=== PATIENT | female | born 1985 | race Caucasian/White ===

== ENCOUNTER 2022-05-10 16:10 | Emergency (ER) | payer OTHER, SELFPAY ==
[2022-05-10 16:29] VITALS: BP 128/88; PULSE 76; RESP 16; TEMP 36.2; O2SAT 100
--- NOTE | 2022-05-10 16:33 | ED.URI ---
HPI - URI/Sore Throat General Chief Complaint: Upper Respiratory Infection Stated Complaint: sore throat congestion Time Seen by Provider: 05/10/22 16:33 History of Present Illness HPI Narrative: Patient brought in for evaluation of sore throat cough fever body aches and joint pain. Patient states her symptoms started yesterday. No short of breath no chest pain. Related Data Home Medications Medication Instructions Recorded Confirmed alprazolam 0.25 mg tablet mg 05/10/22 buspirone 10 mg tablet mg 05/10/22 Allergies Allergy/AdvReac Type Severity Reaction Status Date / Time No Known Allergies Allergy Verified 05/10/22 16:28 Review of Systems Review of Systems: CONSTITUTIONAL: Denies chills, or sweats. Reports fever and generalized body aches EYES: Denies visual changes, redness, or discharge. ENT: Denies otalgia. Reports nasal congestion runny nose and sore throat CARDIOVASCULAR: Denies chest pain, palpitations, or edema. RESPIRATORY: Denies dyspnea. Reports occasional cough GASTROINTESTINAL: Denies abdominal pain, nausea, vomiting, or diarrhea. GENITOURINARY: Denies dysuria or hematuria. SKIN: Denies rash or itching. MUSCULOSKELETAL: Denies back pain, joint pain, or myalgia. Reports generalized body aches NEUROLOGIC: Denies headache, numbness, or weakness. PSYCHIATRIC: Denies anxiety or depression. PMFSH Comments At time of signature, agree with nursing past medical, surgical, social and family history. There is no relevant family history pertinent to the presenting complaint Exam Narrative: The patient is a well-developed, well-nourished in no acute distress. SKIN: Skin is warm and dry without erythema, swelling or exudate. There is good turgor. No tenting. HEAD: Atraumatic. Normocephalic. No temporal or scalp tenderness. EYES: Moist and bright. Sclera and conjunctivae normal. No discharge. PERRLA. Extraocular motions intact. Gross visual acuity intact. EARS: Pinna is normal shape and contour. Clear external auditory canals. TM pearly nelson with good cone of light, no erythema or suppuration. Bilateral cerumen noted no gross hearing deficit. NOSE: pink, moist mucosa with good air movement. Clear rhinorrhea without nasal flaring. Septum midline. Mouth: moist mucous membranes. THROAT; mild erythema noted to posterior oropharynx with moderate postnasal drainage. Without exudate or ulceration.. Uvula midline. Normal movement of soft palate. NECK: Supple and nontender with full range of motion without discomfort. No meningeal signs. LUNGS: Equal and bilateral breath sounds without wheezes, rales or rhonchi. CHEST: The chest wall is without retractions or use of accessory muscles. HEART: Has a regular rate and rhythm without murmur, gallops, click or rub. ABDOMEN: Soft, nontender with positive active bowel sounds. No rebound tenderness. EXTREMITIES: Without cyanosis, clubbing or edema. Equal 2+ distal pulses and 2 second capillary refill noted. NEUROLOGIC: alert, active, . The patient moves all extremities with normal muscle strength. Normal muscle tone is noted. Normal coordination is noted. NO focal neurological findings noted. Course Course Level of Care: Express Care Visit Vital Signs Vital signs: Vital Signs Temperature 36.2 C L 05/10/22 16:29 Pulse Rate 76 05/10/22 16:29 Respiratory Rate 16 05/10/22 16:29 Blood Pressure 128/88 05/10/22 16:29 Pulse Oximetry 100 05/10/22 16:29 Oxygen Delivery Room Air 05/10/22 16:29 Temperature 36.2 C L 05/10/22 16:29 Pulse Rate 76 05/10/22 16:29 Respiratory Rate 16 05/10/22 16:29 Blood Pressure 128/88 05/10/22 16:29 Pulse Oximetry 100 05/10/22 16:29 Oxygen Delivery Room Air 05/10/22 16:29 Discussed with mother might be a false negative due to the symptoms just starting the patient would like an influenza a test. MDM - URI/Sore Throat Lab Data Labs: Influenza A Screen Negative
== END 2022-05-10 17:16 | disposition home or self-care (01) ==
PROVIDERS: Emergency Provider Nurse Practitioner Family; PCP Physician Assistant
DX: B34.9 Viral infection, unspecified (principal)
CPT/HCPCS: 87804; 99203; G0463

== ENCOUNTER 2022-05-24 17:50 | Emergency (ER) | payer OTHER, SELFPAY ==
[2022-05-24 17:54] VITALS: BP 140/80; PULSE 75; RESP 20; TEMP 36.7; O2SAT 100
--- NOTE | 2022-05-24 18:13 | ED.URI ---
HPI - URI/Sore Throat General Chief Complaint: Upper Respiratory Infection Stated Complaint: sob caused by cough Time Seen by Provider: 05/24/22 18:10 Source: patient, RN notes reviewed and old records reviewed Mode of arrival: ambulatory Limitations: no limitations History of Present Illness HPI Narrative: 36-year-old female presents to [facility] for past 2 week duration of chest congestion, shortness of breath, reporting green phlegm with no known recent fevers. Patient states she is feeling a little bit better but continues with cough, ear pain, some sore throat discomfort.Patient has been taking Tylenol and Mucinex for her symptoms.Patient reports that she has been short of breath for the past 2 days with some achiness in chest and ribs.Patient reports no COVID vaccinations or any flu shot. Patient reports that she has been taking Mucinex and Tylenol. MD elicited complaint: cough, sore throat and other (ear pain, achiness) Pain scale (0-10): 2 Treatments prior to arrival: acetaminophen and other (Mucinex) Related Data Home Medications Medication Instructions Recorded Confirmed alprazolam 0.25 mg tablet 0.25 mg PO BID PRN Anxiety 05/10/22 05/24/22 buspirone 10 mg tablet 10 mg PO DAILY 05/10/22 05/24/22 etonogestrel 0.12 mg-ethinyl 1 vag ring vaginal .[id number] 05/24/22 05/24/22 estradiol 0.015 mg/24 hr vaginal ring (EluRyng) Allergies Allergy/AdvReac Type Severity Reaction Status Date / Time No Known Allergies Allergy Verified 05/24/22 18:20 Review of Systems Review of Systems: CONSTITUTIONAL: Denies malaise, chills, sweats, or fever. EYES: Denies visual changes, redness, or discharge. ENT: Reports rhinorrhea, congestion, sinus pain, otalgia and sore throat. CARDIOVASCULAR: Denies chest pain, palpitations, or edema. RESPIRATORY: Reports cough.? Denies dyspnea. GASTROINTESTINAL: Denies abdominal pain, nausea, vomiting, diarrhea SKIN: Denies rash or itching. MUSCULOSKELETAL: Reports myalgia. NEUROLOGIC: Denies headache. All systems reviewed & are unremarkable except as noted in HPI and below PMFSH Past Medical History Medical History (Updated 06/05/22 @ 08:00 by Irena Darnell NP) Anxiety Surgical History Surgical History (Updated 06/05/22 @ 08:04 by Irena Darnell NP) History of ear surgery perforation of left ear Social History Social History (Updated 06/05/22 @ 08:03 by Irena Darnell NP) Smoking status: Never smoker Alcohol intake: unknown Substance use type: does not use Gender identity (if verbalized by the patient): Female Comments At time of signature, agree with nursing past medical, surgical, social and family history. There is no relevant family history pertinent to the presenting complaint Exam Narrative: GENERAL: Well-appearing, well-nourished, and in no acute distress. HEAD: Normocephalic EYES: PERRLA, conjunctivae clear ENT: Nares clear, turbinates edematous and erythematous, clear discharge. Mucous membranes moist. TM pearly tierney with dull light reflex bilaterally; no tragal tenderness. Oropharynx erythematous without lesions. Tonsils red enlarged and without exudate,painful swallowing, no drooling, no hoarseness, no trismus, uvula midline. NECK: Supple. lymphadenopathy CHEST: Clear to auscultation, breath sounds equal. No wheezing, rhonchi, rales, or stridor. No respiratory distress, speaks in full sentences. cough with congestion SAO2 100% on room air. HEART: Regular rate and rhythm. No murmur heard. SKIN: Warm, dry, no rash. NEURO: Alert and oriented x3. PSYCH: Normal mood and affect Course Course Emergency Course: Patient is aware of diagnosis, understands and agrees to treatment plan.? Anticipatory guidance given.? Patient agrees to follow-up as directed and is aware of reasons to seek care at the emergency department. Portions of this record may have been created with voice recognition software Level of Care: E
== END 2022-05-24 18:25 | disposition home or self-care (01) ==
PROVIDERS: Emergency Provider Registered Nurse; PCP Physician Assistant
DX: J02.0 Streptococcal pharyngitis (principal); F41.9 Anxiety disorder, unspecified
CPT/HCPCS: 99213; G0463

== ENCOUNTER 2022-11-13 08:48 | Outpatient (CLI) | payer OTHER, SELFPAY ==
--- NOTE | 2022-11-13 09:07 | ECG_ITS ---
Measurements Intervals [place] Rate: 65 P: 52 TN: 145 QRS: -3 QRSD: 89 T: -1 QT: 390 QTc: 408 Interpretive Statements SINUS RHYTHM POSSIBLE RIGHT VENTRICULAR CONDUCTION DELAY [RSR (QR) IN V1/V2] NONSPECIFIC T-WAVE ABNORMALITY NO PREVIOUS ECG AVAILABLE FOR COMPARISON Electronically Signed On 11-13-2022 14:03:40 CDT by Liya Harding M.D.
== END 2022-11-13 08:49 | disposition home or self-care (01) ==
LOC: ANHLAB 08:52
PROVIDERS: PCP Physician Assistant; Visit Provider Anesthesiology
DX: Z01.818 Encounter for other preprocedural examination (principal); R94.31 Abnormal electrocardiogram [ECG] [EKG]; F17.210 Nicotine dependence, cigarettes, uncomplicated
CPT/HCPCS: 93005

== ENCOUNTER 2022-11-16 00:25 | Day surgery (SDC) | payer OTHER, SELFPAY ==
[2022-11-10 15:19] VITALS: BMI 34.0
--- NOTE | 2022-11-10 15:39 | PC.NURSE ---
Report to the Outpatient Waiting Room, entrance under the green pavilion located off [facility], at time 0800 on date11/16/22. Planned Procedure Time: 1000_. Time changes happen often and if your time is changed the preop area will call you the afternoon before. - You and your visitor will be asked to self-screen and do not enter if you have any COVID symptoms. - A mask is optional within the hospital at this time. Patients may have clear liquids (water, carbonated beverages, clear teas, apple juice) until 3 hours prior to surgery with a maximum of 20 ounces. - No food from midnight until time of surgery - Infants may have breast milk until 4 hours before surgery, formula 6 hours prior to surgery. - Children will be allowed to drink immediately following surgery. If applicable, please bring a bottle or sippy cup to assist with drinking. Juice, water, soda, and popsicles are readily available. For infants on formula, please bring formula the day of surgery. Pacifiers are allowed. Take the following medications with a SIP of water the morning of surgery: alprazolam___ DO NOT STOP ANY OF YOUR OTHER PRESCRIPTION MEDICATIONS PRIOR TO SURGERY ?EXCEPT THE FOLLOWING Medications to discontinue per physician _n/a Date to take last dose Please no make-up, nail north korean, hairspray, perfume, deodorant, or body powder the day of surgery. No jewelry (including any body piercings) or valuables the day of surgery, leave them at home. Please take a shower or bath the night before, or the morning of, surgery with an antibacterial soap. Wear comfortable, loose fitting clothing. Children are encouraged to wear pajamas. - Jewelry must be removed prior to entering the operating room. Rings and piercings that are not removed may be cut off. - The hospital will not accept responsibility for valuables. - Please leave all valuables, including medications, at home the day of surgery. If you are going home after surgery, a licensed street flusher driver must drive you home. - NO public transportation without another adult if you receive anesthesia. - We recommend that an adult stay with you for 24 hours following discharge. - We also recommend that you do not drive, make important decision, drink alcoholic beverages, or take any drugs that were not prescribed by your health care provider for at least 24 hours after your discharge time. For Pediatric surgeries, we recommend two adults accompany the child home. Follow any additional instructions given to you from your surgeon. If you or anyone in your household have experienced Covid symptoms in the past week, please notify your surgeon or the nurse liaison at the phone number below for possible testing. Telephone instructions given to Shalonda Constantino and asked if any additional questions and then verbalized understanding. Patient advised to call surgeon office or pre surgery nurse liaison [phone] if any additional questions.
--- NOTE | 2022-11-15 14:31 | P.PNAN_ITS ---
Anes - Initial Pre Proc Eval Procedure: Operation Date: 11/16/22 10:00 Proposed Procedures p Hysteroscopy with Irina Endometrial Ablation, and Laparoscopic Bilateral Salpingectomy - Chely Luo MD s Loop Electrical Excision Procedure - Chely Luo MD Date/Time: 11/15/22 14:31 Surgeon: Chely Luo MD Pre Op Diagnosis: menorrhagia and desired sterilization, Dysplasia Patient Data Age: 37 Gender: F Height: 1.6 m Weight: 87 kg Allergies Allergy/AdvReac Type Severity Reaction Status Date / Time No Known Allergies Allergy Verified 05/24/22 18:20 Home Medications Medication Instructions Recorded Confirmed Type alprazolam 0.25 mg tablet 0.25 mg PO BID PRN Anxiety 05/10/22 11/10/22 History buspirone 10 mg tablet 10 mg PO DAILY 05/10/22 11/10/22 History meloxicam 15 mg tablet 15 mg PO DAILY 11/10/22 11/10/22 History phentermine 37.5 mg tablet 37.5 mg PO DAILY 11/10/22 11/10/22 History Patient hx anesthesia problems: none Family hx anesthesia problems: none Results Review: All pre-operative results and documents have been reviewed as part of the pre- operative evaluation. [facility] Past Medical History Medical History (Updated 11/15/22 @ 14:31 by Raul Weiner MD) Anxiety Fibromyalgia Obesity Surgical History Surgical History (Updated 06/05/22 @ 08:04 by Irena Darnell NP) History of ear surgery perforation of left ear Social History Social History (Updated 06/05/22 @ 08:03 by Irena Darnell NP) Smoking packs per day: 1 Smoking cigarettes per day: 20.0 Years smoked: 20 Smoking pack-years: 20.00 Smoking status: Former smoker Tobacco type: cigarettes Alcohol intake: current Substance use: never Substance use type: does not use Living arrangements: with family Gender identity (if verbalized by the patient): Female Spiritual care concerns: No Anes - Eval Final PreProcedure Day of Procedure 11/15/22 14:31 Patient weight: obese Heart: regular rate and rhythm Lungs: clear to auscultation and normal air movement Airway: Mallampati scale class II Neurological: alert and oriented Last oral intake: >/= 8 hours ASA classification: III Emergent: no Anesthetic plan: proceed Anesthesia type and monitoring: general GIVS and LMA Results Review: All pre-operative results and documents have been reviewed as part of the pre- operative evaluation. Informed Consent: The patient's anesthetic plan and its attendant risks and benefits were discussed with the patient/family/POA. Questions were solicited and answers provided to the satisfaction of the patient/family/POA.
[2022-11-16] VITALS (10 sets, daily range): BP systolic 125–159; BP diastolic 76–92; PULSE 63–85; RESP 14–16; TEMP 35.9–36.2; O2SAT 96–100
[2022-11-16] MEDS: KETOROLAC 15 MG/ML VIAL (*BKC) IV PUSH (08:45)
[2022-11-16] MEDS: ACETAMINOPHEN 500 MG TABLET 1000 MG PO (08:45)
[2022-11-16] MEDS: LACTATED RINGERS 1,000 ML 30 ML IV CONT ×2 (08:56→11:18)
--- NOTE | 2022-11-16 09:20 | WPDHPUPDATE1 ---
History and Physical Update Update Date/Time: 11/16/22 09:20 Endometrial ablation will also be included in in this surgical treatment History and Physical has been reviewed, including an updated exam of the patient. There are NO changes in the patient's condition. Risks, benefits, and alternatives have been discussed and questions answered. Patient agrees to proceed with procedure.
[2022-11-16] MEDS: IODINE/POTASSIUM IODIDE 8 ML SOLUTION TOPICAL (09:51)
[2022-11-16] MEDS: FERRIC SUBSULFATE 8 ML SOLUTION WITH APPLICATOR TOPICAL (09:51)
--- NOTE | 2022-11-16 11:10 | P.OP_ITS ---
Procedure Note - Detailed Date of Procedure 11/16/22 Pre-op Diagnosis menorrhagia and desired sterilization, Dysplasia Post-op Diagnosis Same Procedure Performed Laparoscopic bilateral salpingectomy with endometrial ablation and hysteroscopy. Surgeon Chely Luo MD Anesthesia General Indications Menorrhagia, female sterilization , cervical dysplasia Findings Normal uterus, tubes and ovaries. Normal-appearing ulna, vagina cervix. Description of Procedure Patient was taken the operating room. She has prepped draped in the dorsal lithotomy position after induction of general anesthesia. A 5 mm abdominal in cision was made in left upper quadrant of the abdomen with scalpel. A 5 mm trocars inserted the intra-abdominal cavity under direct visualization of the scope. Pneumoperitoneum was achieved. A 5 mm periumbilical incision was made using a scalpel on the abdominal scan. A 5 mm trocar was inserted the intra- abdominal cavity under visualization of the scope. A 5 mm incision made left lower quadrant of the abdomen. A 5 mm trocar was inserted the intra-abdominal cavity and direct visualization of the scope. The bilateral fallopian tubes were removed. The paratubal tissue in the area of the uterus was grasped with the LigaSure cautery and transected after being cauterized. The paratubal tissue from the ovary to the uterine cornu was cauterized and transected with LigaSure cautery. This was all done in a bilateral fashion. The tube was transected at the area of the uterine cornua and the tubes was removed through the 5 mm trocar site. The pneumoperitoneum was reduced. The trocars were removed. The skin was closed with subcuticular 4 Monocryl and covered with Dermabond. Our attention was then turned to the endometrial ablation portion of the procedure. A speculum was placed in the vagina. The cervix was grasped with a tenaculum. The cervix was dilated to approximately 8 mm with Jiménez dilators. The hysteroscope was inserted. And the below findings were noted. All of the intrauterine surfaces were curettaged with a medium-size curette and the specimens were collected. Measurements of the cervix were taken using the uterine sound and the hysteroscope. The intrauterine cavity measurements were entered into the handpiece. The device was inserted into the intrauterine cavity and the array was expanded. The balloon cuff was inflated. When an adequate seal was formed the safety and energy cycles were initiated and completed. The array was collapsed, the balloon was deflated. The insert was withdrawn. The hysteroscope was reinserted and a well desiccated intrauterine cavity was observed. ?A coated speculum was placed in the vagina.? The cervix was injected at 3 and 9:00 a.m. with lidocaine.? A electrode loop was used to excise the central portion of the cervix in 1 motion.? This was from 9:00 to 3:00.? After excision of that tissue the cut surface was cauterized with ball cautery.? The Monsel solution was applied to the cut surfaces well.? The speculum was removed.? The patient tolerated the procedure well.? She was seeing cover stable condition.? sponge lap and needle counts were correct x2. She has taken recovery stable condition. The patient was taken recovery room stable condition. Sponge lap and needle counts were correct x2. She tolerated the procedure well. Estimated Blood Loss 50 Pathology Yes Complications No immediate complications Condition Stable Disposition PACU
[2022-11-16] MEDS: fentaNYL CITRATE INJ (*CRX) 100 MCG/2 ML VIAL 25 MCG IV PUSH ×5 (11:52→12:24)
[2022-11-16] MEDS: ALPRAZolam (*CRX) 0.25 MG TABLET PO (12:23)
[2022-11-16] MEDS: oxyCODONE HCL (*CRX) 5 MG TAB IR PO (13:00)
== END 2022-11-16 13:46 | disposition home or self-care (01) ==
PROVIDERS: PCP Physician Assistant; Visit Provider Obstetrics & Gynecology
PROC: 0UDB8ZZ Extraction of Endometrium, Via Natural or Artificial Opening Endoscopic (ICD-10-PCS; CPT 58558; principal; 2022-11-16 10:00)
PROC: 0UBC7ZZ Excision of Cervix, Via Natural or Artificial Opening (ICD-10-PCS; CPT 57522; 2022-11-16 10:00)
DX: N92.0 Excessive and frequent menstruation with regular cycle (principal); Z30.2 Encounter for sterilization; N83.8 Other noninflammatory disorders of ovary, fallopian tube and broad ligament; N72 Inflammatory disease of cervix uteri; F41.9 Anxiety disorder, unspecified; Z87.891 Personal history of nicotine dependence; E66.9 Obesity, unspecified; Z68.34 Body mass index [BMI] 34.0-34.9, adult
CPT/HCPCS: 58661; 58563; 88302; 88305; 88307; A9270; J1100; J1885; J2250; J2405; J2704; J2710; J3010; J7030; J7120

== ENCOUNTER 2022-11-29 14:33 | Outpatient (CLI) | payer OTHER, SELFPAY ==
[2022-11-29 15:38] LABS: Basophils Absolute Auto 0.1 K/mm3 (0.0-0.1); Basophils Percent Auto 0.7 % (0.2-1.2); Eosinophils Absolute Auto 0.5 K/mm3 (0-0.3); Eosinophils Percent Auto 4.5 % (0-4.4); Hematocrit 40.6 % (37.0-47.0); Hemoglobin 13.9 g/dL (12.0-15.0); Immature Granulocyte Absolute 0.03 K/mm3 (0.00-0.031); Immature Granulocyte Percent A 0.3 % (0-0.5); Lymphocytes Absolute Auto 2.29 K/mm3 (0.9-3.2); Lymphocytes Percent Auto 21.9 % (18.3-44.2); Mean Corpuscular HGB Conc 34.2 g/dl (32-36); Mean Corpuscular Hemoglobin 32.3 pg (26-34); Mean Corpuscular Volume 94.2 fl (80-100); Mean Platelet Volume 9.3 fl (7.4-10.4); Monocytes Absolute Auto 0.5 K/mm3 (0.1-0.6); Monocytes Percent Auto 5.1 % (2.6-8.5); Neutrophils Absolute Auto 7.1 K/mm3 (1.3-6.7); Neutrophils Percent Auto 67.5 % (45.5-73.1); Platelet Count Result 298 k/mm3 (150-375); Red Blood Count 4.31 M/mm3 (4.2-5.4); Red Cell Distribution Width 11.9 % (11.5-14.5); White Blood Count 10.5 K/mm3 (4.5-10.0)
== END 2022-11-29 14:34 | disposition home or self-care (01) ==
PROVIDERS: PCP Physician Assistant; Visit Provider Obstetrics & Gynecology
DX: N71.0 Acute inflammatory disease of uterus (principal)
CPT/HCPCS: 36415; 85025

== ENCOUNTER 2022-12-14 16:49 | Emergency (ER) | payer OTHER, SELFPAY ==
--- NOTE | ~2022-12-14 | CT_ITS ---
EXAMINATION: CT abdomen pelvis w con DATE: 12/14/2022 21:41 INDICATION: Left upper quadrant abdominal pain. TECHNIQUE: Computed tomography (CT) of the abdomen and pelvis was performed with 100 mL Omnipaque 350 intravenous contrast. Automated exposure control and iterative reconstruction technique were employe d. The dose-length product was 716.87 mGy-cm. COMPARISON: None. FINDINGS: The visualized portions of the lung bases demonstrate minimal atelectasis. No pleural effus ion. The heart size is normal. No pericardial effusion. The liver, gallbladder, spleen, pancreas, adr enal glands, and kidneys are normal. There are no dilated loops of bowel. The appendix is normal. The re are no pathologically enlarged lymph nodes. There is no free intraperitoneal fluid. The bones are unremarkable. IMPRESSION: 1. No etiology for the patient's symptoms. Reviewed, dictated and finalized at location E.
[2022-12-14 17:05] VITALS: BP 138/93; PULSE 67; RESP 16; TEMP 37.1; O2SAT 100
[2022-12-14 17:47] LABS: Basophils Absolute Auto 0.1 K/mm3 (0.0-0.1); Basophils Percent Auto 0.7 % (0.2-1.2); Eosinophils Absolute Auto 0.4 K/mm3 (0-0.3); Eosinophils Percent Auto 5.8 % (0-4.4); Hematocrit 39.8 % (37.0-47.0); Hemoglobin 13.6 g/dL (12.0-15.0); Immature Granulocyte Absolute 0.01 K/mm3 (0.00-0.031); Immature Granulocyte Percent A 0.1 % (0-0.5); Lymphocytes Absolute Auto 2.47 K/mm3 (0.9-3.2); Mean Corpuscular HGB Conc 34.2 g/dl (32-36); Mean Corpuscular Hemoglobin 32.5 pg (26-34); Mean Corpuscular Volume 95.2 fl (80-100); Mean Platelet Volume 9.3 fl (7.4-10.4); Monocytes Absolute Auto 0.6 K/mm3 (0.1-0.6); Neutrophils Absolute Auto 3.7 K/mm3 (1.3-6.7); Neutrophils Percent Auto 51.4 % (45.5-73.1); Platelet Count Result 245 k/mm3 (150-375); Red Blood Count 4.18 M/mm3 (4.2-5.4); Red Cell Distribution Width 12.1 % (11.5-14.5); White Blood Count 7.3 K/mm3 (4.5-10.0)
[2022-12-14 18:04] LABS: Appearance Urine Clear (Clear); Bacteria Urine None Seen /hpf; Bilirubin Urine Negative (Negative); Blood Urine Negative (Negative); Color Urine Yellow (Yellow); Glucose Urine UA Negative (Negative); Ketones Urine Trace mg/dL (Negative); Leukocyte Esterase Ur Trace LEU/UL (Negative); Nitrate Urine Negative (Negative); Non Pathogenic Casts 0-2; Protein Urine Trace mg/dL (Negative); RBC Urine 0-2 /hpf (0-2); Specific Grav Ur 1.023 (1.001-1.035); Squamous Epithelial Cell Urine None seen /hpf (Few); WBC Urine 0-5 /hpf
[2022-12-14 18:04] LABS: Alanine Aminotransferase 45 U/L (6-35); Albumin Level 4.1 g/dL (3.5-5.1); Alkaline Phosphatase 49 U/L (38-126); Anion Gap 6 mmol/L (8-16); Aspartate Amino Transferase 37 U/L (14-36); Bilirubin,Total 0.3 mg/dL (0.2-1.3); Blood Urea Nitrogen 15 mg/dL (7-17); Calcium 8.8 mg/dL (8.4-10.2); Carbon Dioxide 25 mmol/L (22-30); Chloride 109 mmol/L (98-107); Estimated CRCL calculation 88 ml/min; Estimated Glomerular Filt Rate > 60; Glucose 100 mg/dL (65-110); Lipase 205 U/L (23-300); Potassium 3.9 mmol/L (3.4-5.0); Sodium 140 mmol/L (137-145)
[2022-12-14 18:07] LABS: Add Urine Microscopic? YES
[2022-12-14] MEDS: ACETAMINOPHEN 500 MG TABLET 1000 MG PO (21:27)
[2022-12-14] MEDS: methocarbamoL 750 MG TABLET PO (21:28)
[2022-12-14] MEDS: KETOROLAC 15 MG/ML VIAL (*BKC) IV PUSH (21:28)
--- NOTE | 2022-12-14 22:25 | ED.GENADULT ---
HPI - General Adult General Chief complaint: Abdominal Pain Stated complaint: left abd pain, post-op Time Seen by Provider: 12/14/22 20:23 History of Present Illness HPI narrative: This is a 37-year-old female history of fibromyalgia and IBS presenting with left-sided abdominal pain. Patient had a Laparoscopic bilateral salpingectomy with endometrial ablation and hysteroscopy performed by Dr. Luo. Since then she has not been feeling well. She was diagnosed with a uterine infection and treated with doxycycline and Flagyl. While she was on Flagyl she continued to drink alcohol eventually was taken off of the Flagyl. Patient now says that she is having left-sided abdominal pain that is sharp, migratory around her abdomen, 8/10 intensity and getting worse. Says she has never experienced pain like this before but has noted that she has abdominal pain frequently. It is worse with movement. She has had some nausea but no vomiting. Denies fever chills chest pain difficulty breathing, or vaginal symptoms. Related Data Home Medications Medication Instructions Recorded Confirmed alprazolam 0.25 mg tablet 0.25 mg PO BID PRN Anxiety 05/10/22 11/16/22 buspirone 10 mg tablet 10 mg PO DAILY 05/10/22 11/10/22 meloxicam 15 mg tablet 15 mg PO DAILY 11/10/22 11/10/22 phentermine 37.5 mg tablet 37.5 mg PO DAILY 11/10/22 11/10/22 Allergies Allergy/AdvReac Type Severity Reaction Status Date / Time No Known Allergies Allergy Verified 12/14/22 16:49 [facility] Past Medical History Medical History Anxiety Fibromyalgia Obesity Surgical History Surgical History History of ear surgery perforation of left ear Social History Social History Smoking packs per day: 1 Smoking cigarettes per day: 20.0 Years smoked: 20 Smoking pack-years: 20.00 Smoking status: Former smoker Tobacco type: cigarettes Alcohol intake: current Substance use: never Substance use type: does not use Living arrangements: with family Gender identity (if verbalized by the patient): Female Spiritual care concerns: No Exam Narrative: APPEARANCE: No apparent distress. Head: atraumatic. EYES: EOMI, NOSE: Atraumatic NECK: Trachea midline RESPIRATORY: No increased rate of breathing, CTAB CARDIOVASCULAR: RRR, ABDOMINAL: Abdomen is soft, nontender no guarding or rebound MUSCULOSKELETAl: No obvious deformities NEURO: Alert. Moving 4/4 extremities SKIN:: Warm, dry. Normal color PSYCHIATRIC: Normal affect Course Vital Signs Vital signs: Vital Signs Temperature 98.7 F 12/14/22 17:05 Pulse Rate 67 12/14/22 17:05 Respiratory Rate 16 12/14/22 17:05 Blood Pressure 138/93 H 12/14/22 17:05 Pulse Oximetry 100 12/14/22 17:05 Oxygen Delivery Room Air 12/14/22 17:05 Temperature 98.7 F 12/14/22 17:05 Pulse Rate 67 12/14/22 17:05 Respiratory Rate 16 12/14/22 17:05 Blood Pressure 138/93 H 12/14/22 17:05 Pulse Oximetry 100 12/14/22 17:05 Oxygen Delivery Room Air 12/14/22 17:05 Medical Decision Making [facility] Narrative Medical decision making narrative: -Presentation: 37-year-old female presenting with 1 month of abdominal discomfort after having an OBGYN procedure. 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 She lives with her children -External Chart Review: review of operative notes from November 16 -Hx from independent Sources: non -Independent interpretation of studies: CBC normal. Metabolic panel normal. Urine not indicative of infection. CT abdomen pelvis unremarkable. -Discussion of [place]
[2022-12-14 22:48] VITALS: BP 136/86; PULSE 78; RESP 16; O2SAT 98
== END 2022-12-14 22:49 | disposition home or self-care (01) ==
PROVIDERS: Preventive Medicine Aerospace Medicine; Emergency Provider Emergency Medicine; PCP Physician Assistant
DX: R10.9 Unspecified abdominal pain (principal); M79.7 Fibromyalgia; F41.9 Anxiety disorder, unspecified
CPT/HCPCS: 36415; 74177; 80053; 81001; 83690; 85025; 96374; 99284; A9270; J1885; Q9967

== ENCOUNTER 2024-01-30 13:17 | Emergency (ER) | payer OTHER, SELFPAY ==
[2024-01-30 13:20] VITALS: BP 129/76; PULSE 67; RESP 20; TEMP 37.3; O2SAT 98
--- NOTE | 2024-01-30 13:58 | ED.GENADULT ---
HPI - General Adult General Chief complaint: Skin/Abscess/Foreign Body Stated complaint: Rash Source: patient Mode of arrival: ambulatory Limitations: no limitations History of Present Illness HPI narrative: 38-year-old female presented for complaint rash to the right inner leg. She states I have poison maile. She also states she has had prescription steroid cream in the past which has helped. Denies lip, tongue, or throat swelling, shortness of breath or wheezing. Denies changes to soap, detergent, lotion, or any other exposures. No one else in the house or any contacts with similar symptoms. Related Data Allergies Allergy/AdvReac Type Severity Reaction Status Date / Time No Known Allergies Allergy Verified 07/27/23 15:32 Review of Systems Review of Systems: CONSTITUTIONAL: Denies body aches, fever, chills, or sweats. EYES: Denies visual changes, redness, or discharge. ENT: Denies rhinorrhea, congestion CARDIOVASCULAR: Denies chest pain, palpitations, or edema. RESPIRATORY: Denies cough or dyspnea. GASTROINTESTINAL: Denies abdominal pain, nausea, vomiting, or diarrhea. SKIN: per HPI MUSCULOSKELETAL: Denies back pain, joint pain, or myalgia. NEUROLOGIC: Denies headache, numbness, tingling, or weakness. [facility] Past Medical History Medical History Anxiety Fibromyalgia Obesity Surgical History Surgical History History of ear surgery perforation of left ear Family History Family History Mother Hypertension Thyroid disorder Sibling Thyroid disorder Grandparent Alcoholism Grandparent Alcoholism Lung cancer Social History Social History Smoking packs per day: 1 Smoking cigarettes per day: 20.0 Years smoked: 20 Smoking pack-years: 20.00 Smoking status: Former smoker Tobacco type: cigarettes Alcohol intake: current Substance use: never Substance use type: does not use Do You Feel Safe in your Home?: Yes Lack of Transportation: No Lack of Food: Never True Current Housing: I Have Housing Concerned About Future Housing: No Difficulty Paying Gas/Electric Bills: YES Difficulty Paying for Meds: No Currently Unemployed: No Education: Trade/Vocational Certificate Difficulty w/ Childcare or Family Care: No Living arrangements: with family Gender identity (if verbalized by the patient): Female Spiritual care concerns: No Comments At time of signature, I have reviewed and agree with nursing past medical, surgical, social and family history unless otherwise noted. Please see nursing chart for further information. There is no relevant family history pertinent to the presenting complaint Exam Narrative: GENERAL: Well-appearing EYES: conjunctivae clear, and EOMI. ENT: Mucous membranes moist. Oropharynx without edema, erythema or lesions. NECK: Supple. No lymphadenopathy CHEST: Clear to auscultation. HEART: Regular rate and rhythm. SKIN: Warm, dry. right medial calf with patch of vesicles on erythematous base approximately 5 cm x 2 cm, nontender, no active drainage. Site is consistent with contact dermatitis. NEURO: Alert and oriented x3. Course Course Emergency Course: Patient is aware of diagnosis, understands and agrees to treatment plan. Anticipatory guidance given. Patient agrees to follow-up as directed and is aware of reasons to seek care at the emergency department. Portions of this record may have been created with voice recognition software Level of Care: Express Care Visit Vital Signs Vital signs: Vital Signs Temperature 99.2 F 01/30/24 13:20 Pulse Rate 67 01/30/24 13:20 Respiratory Rate 20 01/30/24 13:20 Blood Pressure 129/76 01/30/24 13:20 Pulse Oximetry 98 01/30/24 13:20 Oxygen Delivery
== END 2024-01-30 14:07 | disposition home or self-care (01) ==
PROVIDERS: Emergency Provider Nurse Practitioner Family; PCP Physician Assistant
DX: L25.9 Unspecified contact dermatitis, unspecified cause (principal); Z87.891 Personal history of nicotine dependence; M79.7 Fibromyalgia; E66.9 Obesity, unspecified; Z68.31 Body mass index [BMI] 31.0-31.9, adult
CPT/HCPCS: 99213; G0463

== ENCOUNTER 2024-06-02 08:33 | Emergency (ER) | payer OTHER, SELFPAY ==
[2024-06-02 08:41] VITALS: BP 130/83; PULSE 66; RESP 16; TEMP 37; O2SAT 99
--- NOTE | 2024-06-02 08:43 | ED_ITS ---
HPI - Skin/Abscess/Foreign Bdy General Chief complaint: Skin/Abscess/Foreign Body Stated complaint: Skin Sore Time Seen by Provider: 06/02/24 08:43 Source: patient Mode of arrival: ambulatory Limitations: no limitations History of Present Illness HPI narrative: 38-year-old female presents with complaint of staph infection . Patient reports infection to breast. Was seen by her primary care physician and took Augmentin for 10 days. Patient reports improved but never went away. Now has a similar area pain, redness and swelling to right buttock. Very small area to left lower abdomen. Afebrile. All systems reviewed and negative except as noted above. Related Data Home Medications ?Medication ?Instructions ?Recorded ?Confirmed ?Last Taken ?Type alprazolam 0.25 mg tablet mg 06/02/24 Unknown History amitriptyline 25 mg tablet mg 06/02/24 Unknown History buspirone 10 mg tablet mg 06/02/24 Unknown History ergocalciferol (vitamin D2) 1,250 06/02/24 Unknown History mcg (50,000 unit) capsule omeprazole 20 mg capsule,delayed mg 06/02/24 Unknown History release Allergies Allergy/AdvReac Type Severity Reaction Status Date / Time No Known Allergies Allergy Verified 07/27/23 15:32 Review of Systems Review of Systems: CONSTITUTIONAL: Denies fever, chills, or sweats. EYES: Denies visual changes, redness, or discharge. ENT: Denies rhinorrhea, congestion, sore throat, or otalgia. CARDIOVASCULAR: Denies chest pain, palpitations, or edema. RESPIRATORY: Denies cough or dyspnea. GASTROINTESTINAL: Denies abdominal pain, nausea, vomiting, or diarrhea. GENITOURINARY: Denies dysuria or hematuria. SKIN: Denies rash or itching. Reports staph infection to right buttock, right breast and left lower abdomen. MUSCULOSKELETAL: Denies back pain, joint pain, or myalgia. NEUROLOGIC: Denies headache, numbness, or weakness. PSYCHIATRIC: Denies anxiety or depression. All other systems reviewed are negative, except as documented in HPI. [facility] Past Medical History Medical History Anxiety Fibromyalgia Obesity Surgical History Surgical History History of ear surgery perforation of left ear Family History Family History Mother Hypertension Thyroid disorder Sibling Thyroid disorder Grandparent Alcoholism Grandparent Alcoholism Lung cancer Social History Social History Smoking packs per day: 1 Smoking cigarettes per day: 20.0 Years smoked: 20 Smoking pack-years: 20.00 Smoking status: Former smoker Tobacco type: cigarettes Alcohol intake: current Substance use: never Substance use type: does not use Do You Feel Safe in your Home?: Yes Lack of Transportation: No Lack of Food: Never True Current Housing: I Have Housing Concerned About Future Housing: No Difficulty Paying Gas/Electric Bills: YES Difficulty Paying for Meds: No Currently Unemployed: No Education: Trade/Vocational Certificate Difficulty w/ Childcare or Family Care: No Living arrangements: with family Gender identity (if verbalized by the patient): Female Spiritual care concerns: No Comments At time of signature, agree with nursing past medical, surgical, social and family history. There is no relevant family history pertinent to the presenting complaint. Exam Narrative: GENERAL: This is a well-nourished, well-developed patient, in no apparent distress. HEAD: normocephalic, atraumatic. EYES: PERRL. Sclera clear/white. Vision is grossly intact. EARS: External ears normal NOSE: External nose normal NECK: Neck supple, non-tender without lymphadenopathy, masses or thyromegaly. CARDIOVASCULAR: Regular rate and rhythm without murmurs, gallops, or rubs. RESPIRATORY: Clear to auscultation. Breath sounds equal bilaterally. No wheezes, rales, or rhonchi. SKIN: warm, Dry, intact with no suspicious lesions or rash, good texture and turgor. small area of erythema to R breast and R buttock approx. 3cm diameter with tenderness on palpation. no fluctuance concerning for abscess. er ythematous scabbed area to L lower abdomen, size of pencil eraser. NEURO: awake, alert, and oriented to person, place and time. There were no obvious focal neurologic abnormalities. EXTREMITIES: No joint tenderness, effusion, or edema noted. Const: Other: Course Course Level of Care: Express Care Visit Vital Signs Vital signs: Vital Signs Temperature 37.0 C 06/02/24 08:41 Pulse Rate 66 06/02/24 08:41 Respiratory Rate 16 06/02/24 08:41 Blood Pressure 130/83 06/02/24 08:41 Pulse Oximetry 99 06/02/24 08:41 Oxygen Delivery Room Air 06/02/24 08:41 Temperature 37.0 C 06/02/24 08:41 Pulse Rate 66 06/02/24 08:41 Respiratory Rate 16 06/02/24 08:41 Blood Pressure 130/83 06/02/24 08:41 Pulse Oximetry 99 06/02/24 08:41 Oxygen Delivery Room Air 06/02/24 08:41 Reviewed MDM - Skin/Abscess/Foreign Bdy MDM Narrative Medical decision making narrative: Patient is aware of diagnosis, understands and agrees to treatment plan. Anticipatory guidance given. Patient agrees to follow-up as directed and is aware of reasons to seek care at the emergency department. Portions of this record may have been created with voice recognition software Discharge Plan Discharge Clinical Impression: Infection, skin, staph Patient Disposition: Home, Self-Care Condition: Stable Instructions: Antibiotic Form Additional Instructions: Take Antibiotic as prescribed until gone. Take ibuprofen or Tylenol every 6-8 hours as needed for pain and fever. Wash twice a day with soap and water. Follow-up with your primary care physician if symptoms are not improving. Patient Language: Romanian Prescriptions: New clindamycin HCl 300 mg capsule 300 mg PO QID 10 Days Qty: 40 0RF No Action triamcinolone acetonide 0.1 % cream 1 applic topical BID 7 Days Qty: 30 0RF alprazolam 0.25 mg tablet amitriptyline 25 mg tablet buspirone 10 mg tablet omeprazole 20 mg capsule,delayed release(DR/EC) ergocalciferol (vitamin D2) 1,250 mcg (50,000 unit) capsule Follow-up/Referrals: Galilea,ODILON Hidalgo [Primary Care Provider] - Time of Disposition: 08:52
--- OUTSIDE RECORDS SUMMARY | 2024-06-09 07:51 | XMS_ITS | Encounter Summary ---
Author Organization [employer] Care Team Providers Care Carpenter Mate Name Role Phone Adam Aeljo DO Unavailable [phone] Johnna Valente OUTREACH CONSULTANT, TRIMMER OPERATOR Unavailable [phone] Marisela Chaidez OUTREACH CONSULTANT, TRIMMER OPERATOR Unavailable Johnathan Pugh MD Unavailable [phone] Gwen Calero PAC Primary Care Pro vider Encounter Details Date Type Department Care Team (Latest Contact Info) Description 05/07/2024 Travel Social History Tobacco Use Types Packs/Day Years Used Date Smoking Tobacco: Former Cigarettes Q uit: 05/08/2016 Passive Smoke Exposure: Past Smokeless Tobacco: Never Comments:occasional smoker Alcohol Use Standard Drinks/Week Comments Yes 6 (1 standard drink = 0.6 oz pure alcohol) drinks three bottles of wine a week [facility] Utilities Answer Date Recorded In the past 12 months has Social [employer], [employer] oil, or water [employer] threatened to shut off services in your home? No 11/08/2023 Social Connection and Isolat ion Panel [NHANES] Answer Date Recorded In a typical week, how many times do you talk on the phone with family, friends, or neighbors? More than three times a week 11/08/2023 How often do you get togethe r with friends or relatives? More than three times a week 11/08/2023 How often do you attend chur or tenriism services? More than 4 times per year 11/08/2023 Do you belong to any clubs o r organizations such as jew groups, unions, fraternal or athletic groups, or school groups? No 11/08/2023 How often do you attend meet ings of the clubs or organizations you belong to? Never 11/08/2023 Are you , , di vorced, , never , or living with a partner? 11/08/2023 AUDIT-C Answer Date Recorded Q1: How often do you have a drink containing alc ohol? 2-3 times a week 11/08/2023 Q2: How many drinks containi ng alcohol do you have on a typical day when you are drinking? 1 or 2 11/08/2023 Q3: How often do you have si x or more drinks on one occasion? Less than monthly 11/08/2023 Overall Financial Resource Strain (CARDIA) Answe r Date Recorded How hard is it for you to pa y for the very basics like food, housing, medical care, and heating? Not hard at all 11/08/2023 PHQ-2 Answer Date Recorded Total Score - Questions 1-9 12 01/05 [facility] - Occupational Stress Questionnaire Answer Date Recorded Do you feel stress - tense, restless, nervous, or anxious, or unable to sleep at night because your mind is troubled all the time - these days? Rather much 11/08/2023 Exercise Vital Sign Answer Date Recorde d On average, how many days pe r week do you engage in moderate to strenuous exercise (like a brisk walk)? 4 days 11/08/2023 On average, how many minutes do you engage in exercise at this level? 40 min 11/08/2023 Hunger Vital Sign Answer Date Recorded Within the past 12 months, y ou worried that your food would run out before you got the money to buy more. Never true 11/08/19 24 Within the past 12 months, t he food you bought just didn't last and you didn't have money to get more. Never true 11/08/2023 PRAPARE - Transportation Answer Date Re corded In the past 12 months, has l ack of transportation kept you from medical appointments or from getting medications? No 09/2023 In the past 12 months, has l ack of transportation kept you from meetings, work, or from getting things needed for daily living? No 11/08/2023 Housing Stability Vital Sign Answer Marek e Recorded In the last 12 months, was t here a time when you were not able to pay the mortgage or rent on time? No 11/08/19 24 Number of Places Lived in the Last Year Not on f ile 11/08/2023 In the last 12 months, was t here a time when you did not have a steady place to sleep or slept in a alf (including now)? Patient declined 11/08/2023 Education Answer Date Recorded What is the highest level of school you have completed or the highest degree you have received? Associate degree: occupational, technical, or vocational program 09/24/2020 Sexually Active Control Partners Comments Not Currently Male Comments No Sex and Gender Information Value Date Recorded Sex Assigned at Not on file Legal Sex Female 10:47 AM CDT Gender Identity Not on file Sexual Orientation Not on file documented as of this encounter Plan of Treatment Upcoming Encounters Date Type Department Care Team (Late st Contact Info) Description 06/19/2024 8:00 AM LIME PULLER Appointment [facility] Mammography [address] [place] [address] Gwen Calero, PAC [address] [place] [address] Discharge Disposition: Discharged to home or Selfcare 06/19/2024 9:00 AM LIME PULLER Appointment [facility] Ultrasound [address] [place] [address] Gwen Calero, PAC [address] [place] [address] Discharge Disposition: Discharged to home or Selfcare 08/13/2024 9:00 AM CDT Office Visit [facility] - [facility] - [place] [address] [place] [id number] Gwen Calero, PAC [address] [place] [address] documented as of this encounter Goals Goal Patient Goal Type Associated Problems Recent Progress Patient-Stated? Author wants a quiet brain and to be able to focus on task at hand Behavioral Health Yes Meagan Cosme LCSW Improve attention skills Behavioral Health No Meagan Cosme LCSW Note: Goal/Objective: Increase attention skills. Anticipated Time Frame for Goal Completion: 3 months Goal Reviewed with: patient Readiness to change: Ready to change Department associated with goal: [facility] Steps to achieve goal: will identify at least two coping skills/activities/habits that have helped to manage anxiety in the past. will identify at least three new coping skills/activities/habits that may help to prevent and/or cope with anxiety. 3. will identify a plan to implement coping skills and follow this plan for two weeks and evaluate the impact on anxiety 4. Will attend individual and/or group therapy at least 1x/month at least 6 sessions documented as of this encounter Visit Diagnoses Not on filedocumented in this encounter Additional Health Concerns Assessment Noted Time PHQ-9 Depression Total Score: 12 022 1:00 PM CDT documented as of this encounter Care Teams Carpenter Mate Relationship Specialty Start Date End Date Gwen Calero PAC [address] [place] [address] PCP - General Physician Demographic Analyst 06/12/21 Adam Alejo DO Gastroenterology 01/07/16 Johnna Valente APRN, TRIMMER OPERATOR Nurse Practitioner Advanced Practice Nurse 01/07/16 Marisela Chaidez APRN, TRIMMER OPERATOR Nurse Practitioner Advanced Practice Nurse 01/07/16 Johnathan Pugh MD [address] [place] [address] Obstetrics & Gynecology 08/13/19 documented as of this encounter
--- OUTSIDE RECORDS SUMMARY | 2024-06-09 07:51 | XMS_ITS | Clinical Summary ---
Author Organization [facility] Care Team Providers Care Lead Presser Name Role Phone Adam Alejo DO Unavailable [phone] Johnna Valente SEWER SYSTEM SUPERVISOR, MEDICAL LABORATORY SCIENTIST Unavailable [phone] Marisela Chaidez SEWER SYSTEM SUPERVISOR, MEDICAL LABORATORY SCIENTIST Unavailable Johnathan Pugh MD Unavailable [phone] Gwen Calero PAC Primary Care Pro vider Allergies No known active allergies Medications omeprazole (PriLOSEC) 20 MG CAPSULE DELAYED RELEASE Take 1 Capsule by mouth daily. 90 Capsule 3 11/08/19 24 Active busPIRone (BUSPAR) 10 MG Tablet TAKE 1 TABLET BY MOUTH EVERY NIGHT 90 Tablet 2 05/21/20 24 Active Phentermine HCl 37.5 MG TabletIndicatio ns:Overweight Take 1 Tablet by mouth every morning (before breakfast). 30 Tablet 2 06/08/19 25 Active busPIRone (BUSPAR) 10 MG Tablet Take 1 Tablet by mouth nightly. 90 Tablet 2 03/26/20 22 024 Discontinued amitriptyline (ELAVIL) 25 MG Tablet Take 1 Tablet by mouth nightly. 30 Tablet 2 06/10/19 24 025 Discontinued( erapy completed) ondansetron (ZOFRAN-ODT) 4 MG TABLET DISPERSIBLE Take 1 Tablet by mouth every 8 hours as needed for Nausea - 2nd line. 10 Tablet 11/18/19 24 025 Discontinued( erapy completed) ALPRAZolam (XANAX) 0.25 MG TabletIndicatio ns:Anxiety TAKE 1 TABLET BY MOUTH TWICE DAILY NEEDED FOR ANXIETY 30 Tablet 03/30/20 24 025 Discontinued(Th erapy completed) amoxicillin-cla vulanate (AUGMENTIN) 875-125 MG Tablet Take 1 Tablet by mouth 2 times daily for 10 days. 20 Tablet 05/07/20 24 024 fluconazole (DIFLUCAN) 150 MG Tablet Take 1 Tablet by mouth once for 1 dose. 1 Tablet 06/08/19 25 025 Active Problems Problem Noted Date Diagnosed Date Screening for diabetes mellitus 06/08/2024 Screening cholesterol level 06/08/2024 Thyroid disorder screening 06/08/2024 Well adult exam 06/08/2024 H/O salpingostomy 11/08/2023 Irritable bowel syndrome with diarrhea ADHD (attention deficit hyperactivity disorder) evaluation 02/22/2022 Chronic midline low back pain with bilateral sci atica 11/06/2020 Right calf pain 11/06/2020 Weight gain 11/06/2020 Gastroesophageal reflux disease 10/31/2015 Depression 10/31/2015 Resolved Problems Problem Noted Date Diagnosed Date Resolved Date Term , unspecified trimester 01/12/2017 09/21/2019 Encounters Date Type Department Care Team Description 06/08/2024 8:45 AM SOFTWARE INSTALLER Office Visit [facility] Internal Medicine [facility] [address] [place] [phone] Gwen Calero, CECY Gastroesophageal reflux disease, unspecified whether esophagitis present (Primary Dx); Well adult exam; Screening for diabetes mellitus; Screening cholesterol level; Thyroid disorder screening; Mass of right axilla; Overweight; Yeast cystitis Discharge Disposition: Discharged to home or Selfcare 06/08/2024 Travel 05/28/2024 Results Follow-Up [facility] Internal [facility] [address] [place] [phone] Gwen Calero PAC 05/21/[address] [facility] Internal [facility] [address] [place] [phone] Gwen Calero, CECY Medication Refill 05/19/2024 9:30 AM SOFTWARE INSTALLER - 05/19/2024 11:59 PM SOFTWARE INSTALLER [facility] [address] [place] [address] Gwen Calero, CECY Discharge Disposition: Discharged to home or Selfcare 05/19/2024 Travel 05/07/2024 9:15 AM SOFTWARE INSTALLER [facility] [address] [place] [address] Gwen Calero PAC Boil (Primary Dx); Enlarged lymph node; Screening mammogram for breast cancer; Dog bite, initial encounter; Hematoma Discharge Disposition: Discharged to home or Selfcare 05/07/2024 Travel 03/29/[address] [facility] Internal Medicine [facility] [address] [place] [address] Gwen Calero, CECY Medication Refill from Last 3 Months Immunizations Immunization Administration Dates Next Due Influenza Vaccine, Quadrivalent, PF 06/10/2023,1 07/30/2019,03/24/2018 TDAP Vaccine 01/12/2017 Family History Medical History Relation Name Comments Lung Cancer Maternal Grandfather Hypertension Mother Rheumatoid Arthritis Mother Thyroid Disease Mother Thyroid Disease Sister Relation Name Status Comments Father young Maternal Grandfather Mother Alive Sister Social History Tobacco Use Types Packs/Day Years Used Date Smoking Tobacco: Former Cigarettes Q uit: 05/08/2016 Passive Smoke Exposure: Past Smokeless Tobacco: Never Tobacco Cessation:Counseling Given: No Comments:occasional smoker Alcohol Use Standard Drinks/Week Comments Yes 6 (1 standard drink = 0.6 oz pure alcohol) drinks three bottles of wine a week [facility] Utilities Answer Date Recorded In the past 12 months has [employer], [employer], oil, or water [employer] threatened to shut off services in your [...] 11/08/2023 How often do you attend chur ch or mormonism services? More than 4 times per year 11/08/2023 Do you belong to any clubs o r organizations such as congregation groups, unions, fraternal or athletic groups, or [...] Total Score - Questions 1-9 12 01/05 [facility] - Occupational Stress Questionnaire Answer Date Recorded [...] place to sleep or slept in a chcf (including now)? Patient declined 11/08/2023 Education Answer [...] on file Sexual Orientation Not on file Last Filed Vital Signs Vital Sign Reading Time Taken Comments Blood Pressure 126/88 06/08/2024 8:38 AM SOFTWARE INSTALLER Pulse 78 06/08/2024 8:38 AM SOFTWARE INSTALLER Temperature 36.4 ??C (97.5 ??F) 06/08/2024 8:38 AM CS T Respiratory Rate 12 06/08/2024 8:38 AM SOFTWARE INSTALLER Oxygen Saturation 98% 06/08/2024 8:38 AM SOFTWARE INSTALLER Inhaled Oxygen Concentration - - Weight 93.9 kg (207 lb) 06/08/2024 8:38 AM SOFTWARE INSTALLER Height 160 cm (5' 3 ) 11/08/2023 8:27 AM CDT Body Mass Index 36.67 11/08/2023 8:27 AM CDT Plan of Treatment Upcoming Encounters Date Type Department Care Team (Late st Contact Info) Description 06/19/2024 8:00 AM SOFTWARE INSTALLER Appointment [facility] Mammography [address] [place] [address] Gwen Calero, PAC [address] [place] [address] Discharge Disposition: Discharged to home or Selfcare 06/19/2024 9:00 AM SOFTWARE INSTALLER [facility]ointment [facility] Ul[facility]ound [address] [place] [address] Gwen Calero, PAC [address] [place] [address] Discharge Disposition: Discharged to home or Selfcare 08/13/2024 9:00 AM CDT [facility] [place] [address] [place] [phone] Gwen Calero, PAC [address] [place] [address] Health Maintenance Due Date Last Done Comments Hepatitis C Virus (HCV) Screening 1985 Hepatitis B Immunization (1 of 3 - 19+ 3-dose series) 2004 Pap Smear 2006 Cervical Cancer Screening (CCS) 2015 HPV/Cotest 2015 Influenza Immunization (#1) 02/05/202410/2023, 05/29/2020, 03/24/2018 SARS-COV-2 Immunization (2023- season) 2024 Td Immunization Every 10 Yea rs (Adults With 1 Tdap) 01/12/2027 01/12/2017 Respiratory Syncytial Virus (RSV) Immunization (Adult) (1 - 1-dose 75+ series) 2060 Meningococcal Immunization (ACWY) Aged Out No longer eligible b ased on patient's age to complete this topic Pneumococcal Immunization Combined Aged Out No longer eligible b ased on patient's age to complete this topic Rotavirus Immunization Aged Out No lo nger eligible based on patient's age to complete this topic Goals Goal Patient Goal Type Associated Problems Recent Progress Patient-Stated? Author wants a quiet brain and to be able to focus on task at hand Behavioral Health Yes Meagan Cosme LCSW Improve attention skills Behavioral Health No Meagan Cosme, FORESTRY CONSERVATION WORKER Note: Goal/Objective: Increase attention skills. Anticipated Time Frame for Goal Completion: 3 months Goal Reviewed with: patient Readiness to change: Ready to change Department associated with goal: [facility] Steps to achieve goal: [...] at least 1x/month at least 6 sessions Procedures Procedure Name Priority Date/Time Associated Diagnosis Comments US RIGHT EXTREMITY NON-VASC LTD Routine 05/19/2024 10:14 AM SOFTWARE INSTALLER Enlarged lymph node from Last 3 Months Results * US RIGHT EXTREMITY NON-VASC LTD (05/19/2024 10:14 AM SOFTWARE INSTALLER) Anatomical Region Laterality Modality BODY Right Ultrasound 05/25/2024 2:41 PM SOFTWARE INSTALLER Impressions 05/25/2024 2:43 PM SOFTWARE INSTALLER IMPRESSION: Unremarkable lymph nodes with a very thin cortex, similar to the previous ultrasound. Narrative 05/25/2024 2:43 PM SOFTWARE INSTALLER EXAM DESCRIPTION: ?? US RIGHT EXTREMITY NON-VASC LTD REASON FOR STUDY: ?? RIGHT axillary lymph node ?? TECHNIQUE: A Dynamic assessment was performed of the ??right axilla ?? by the pinion polisher, with selected grayscale and color Doppler images acquired and recorded in PACS. COMPARISON: ?? 05/26/2020 FINDINGS: SKIN AND SUBCUTANEOUS TISSUES: Several lymph nodes with a very thin cortex are similar to the previous ultrasound. OTHER: ?? No other significant finding. THIS IS AN ELECTRONICALLY VERIFIED FINAL REPORT 05/25/2024 2:41 PM - Electronically signed by ??Lorne Madrid M.D. RONNELL: RONNELL D: ??05/25/2024 2:41 PM T: ??05/25/2024 2:41 PM Report ID: [id number] Reading Location: ??[id number] Procedure Note Joaquim Madrid MD - 05/25/2024 EXAM DESCRIPTION: US RIGHT EXTREMITY NON-VASC LTD REASON FOR STUDY: RIGHT axillary lymph node TECHNIQUE: A Dynamic assessment was performed of the right axilla by the pinion polisher, with selected grayscale and color Doppler images acquired and recorded in PACS. COMPARISON: 05/26/2020 FINDINGS: SKIN AND SUBCUTANEOUS TISSUES: Several lymph nodes with a very thin cortex are similar to the previous ultrasound. OTHER: No other significant finding. THIS IS AN ELECTRONICALLY VERIFIED FINAL REPORT 05/25/2024 2:41 PM - Electronically signed by Lorne Madrid M.D. RONNELL: RONNELL Report ID: [id number] Reading Location: [id number] IMPRESSION: Unremarkable lymph nodes with a very thin cortex, similar to the previous ultrasound. us Gwen Calero PAC IMG US ORDERABLES Final Result from Last 3 Months Insurance MEDICAID [place] Advance Directives * Full Code (Latest Code Status on File) Date Activated Date Inactivated Comments 01/13/2017 3:21 PM 01/13/2017 7:28 PM CPR-Full Vinny atment: FULL ARREST: Attempt Resuscitation/CPR wit intubation and mechanical ventilation. PRE-ARREST: Use entire range of life support measures to stabilize the patient. * Full Code Date Activated Date Inactivated Comments 01/08/2017 4:35 PM 01/08/2017 8:37 PM CPR-Full Treat ment: FULL ARREST: Attempt Resuscitation/CPR wit intubation and mechanical ventilation. PRE-ARREST: Use entire range of life support measures to stabilize the patient. * Full Code Date Activated Date Inactivated Comments 12/31/2016 10:29 PM 01/01/2017 2:04 AM CPR-Full Tr eatment: FULL ARREST: Attempt Resuscitation/CPR wit intubation and mechanical ventilation. PRE-ARREST: Use entire range of life support measures to stabilize the patient. * Full Code Date Activated Date Inactivated Comments 12/16/2016 1:04 PM 12/16/2016 6:17 PM CPR-Full Vinny atment: FULL ARREST: Attempt Resuscitation/CPR wit intubation and mechanical ventilation. PRE-ARREST: Use entire range of life support measures to stabilize the patient. * Full Code Date Activated Date Inactivated Comments 11/26/2016 11:00 AM 11/26/2016 2:51 PM CPR-Full Tr eatment: FULL ARREST: Attempt Resuscitation/CPR wit intubation and mechanical ventilation. PRE-ARREST: Use entire range of life support measures to stabilize the patient. Care Teams Lead Presser Relationship Specialty Start Date End Date Gwen Calero [facility] [address] [facility] [place] [address] PCP - General Physician Clinical Admissions Manager 06/12/21 Adam Alejo DO Gastroenterology 01/07/16 Johnna Valente APRN, MEDICAL LABORATORY SCIENTIST Nurse Practitioner Advanced Practice Nurse 01/07/16 Marisela Chaidez, MICHAEL, MEDICAL LABORATORY SCIENTIST Nurse Practitioner Advanced Practice Nurse 01/07/16 Johnathan Pugh MD [address] [place] [address] Obstetrics & Gynecology 08/13/19
--- OUTSIDE RECORDS SUMMARY | 2024-06-09 07:51 | XMS_ITS | Encounter Summary ---
Author Organization [facility] Address [address] [place] [address] Phone Care Team Providers Care Claims Sorter Name Role Phone Adam Alejo DO Unavailable [phone] Johnna Valente ABE TEACHER, DINKEY DRIVER Unavailable Marisela Chaidez ABE TEACHER, DINKEY DRIVER Unavailable Johnathan Pugh MD Unavailable [phone] Gwen Calero PAC Primary Care Pro vider Reason for Visit * Reason Comments Medication Refill Encounter Details Date Type Department Care Team (Late st Contact Info) Description 03/29/2024 Refill [facility] - Internal Medicine - [place] [address] [place] [phone] Gwen Calero, PAC [address] [place] [address] Medication Refill Social History Tobacco Use Types Packs/Day Years Used Date Smoking Tobacco: Former Cigarettes Q uit: 05/08/2016 Passive Smoke Exposure: Past Smokeless Tobacco: Never Comments:occasional smoker Alcohol Use Standard Drinks/Week Comments Yes 6 (1 standard drink = 0.6 oz pure alcohol) drinks three bottles of wine a week [facility] Utilities Answer Date Recorded In the past 12 months has [employer], gas, oil, or water company threatened to shut off services in your [...] often do you attend chur ch or temple services? More than 4 times per year 11/08/2023 Do you belong to any clubs o r organizations such as samaritan groups, unions, fraternal or athletic groups, or [...] Total Score - Questions 1-9 12 01/05 [facility] - Occupational Stress Questionnaire Answer Date Recorded [...] mortgage or rent on time? No 11/08/19 Number of Places Lived in the Last Year Not on f ile 11/08/2023 In the last 12 months, was t here a time when you did not have a steady place to sleep or slept in a residential (including now)? Patient declined 11/08/2023 Education Answer [...] on file documented as of this encounter Miscellaneous Notes * Telephone Encounter - Ashley Rosas RN - 03/30/2024 10:30 AM CDT Last ordered by you in June: Last ordered: 9 months ago (06/10/2023) by CECY Kunz Medication failed the protocol, provider to review and approve the medication order if appropriate. Requested Prescriptions Pending Prescriptions Disp Refills ALPRAZolam (XANAX) 0.25 MG Tablet [Pharmacy Med Name: ALPRAZOLAM 0.25MG TABLETS] 30 Tablet Sig: TAKE 1 TABLET BY MOUTH TWICE DAILY NEEDED FOR ANXIETY Not Delegated - Benzodiazepines Protocol Failed - 03/29/2024 10:20 AM Failed - This refill cannot be delegated Passed - Visit with relevant provider in past 12 months or upcoming 90 days Recent Visits Date Type Provider Dept 12/07/23 Office Visit Gwen Calero, CECY [facility] [place] 11/08/23 Office Visit Gwen Calero, PAC [facility] [place] 06/10/23 Office Visit Gwen Calero, PAC [facility] [place] Showing recent visits within past 365 days and meeting all other requirements Future Appointments Date Type Provider Dept 06/08/24 Appointment Gwen Calero, PAC [facility] [place] Showing future appointments within next 90 days and meeting all other requirements documented in this encounter Plan of Treatment Upcoming Encounters Date Type Department Care Team (Late st Contact Info) Description 06/19/2024 8:00 AM TIRE INSTALLER Appointment [facility] Mammography [address] [place] [address] Gwen Calero, PAC [address] [place] [address] Discharge Disposition: Discharged to home or Selfcare 06/19/2024 9:00 AM TIRE INSTALLER Appointment [facility] Ultrasound [address] [place] [address] Gwen Calero, PAC [address] [place] [address] Discharge Disposition: Discharged to home or Selfcare 08/13/2024 9:00 AM CDT Office Visit [facility] - Internal Medicine - [place] [address] [place] [phone] Gwen aClero, PAC [address] [place] [address] documented as of this encounter Goals Goal Patient Goal Type Associated Problems Recent Progress Patient-Stated? Author wants a quiet brain and to be able to focus on task at hand Behavioral Health Yes Meagan Cosme, GLASS CUTTING MACHINE OPERATOR Improve attention skills Behavioral Health Sara JimenezCarmelinaMeagan veloz LCSW Note: Goal/Objective: Increase attention skills. Anticipated Time Frame for Goal Completion: 3 months Goal Reviewed with: patient Readiness to change: Ready to change Department associated with goal: [facility] Steps to achieve [...] documented as of this encounter Visit Diagnoses Diagnosis Anxiety Anxiety state, unspecified documented in this encounter Additional Health Concerns Assessment Noted Time PHQ-9 Depression Total Score: 12 022 1:00 PM CDT documented as of this encounter Care Teams Claims Sorter Relationship Specialty Start Date End Date Gwen Calero PAC [address] [place] [address] PCP - General Physician Pulp Mill Operator 06/12/21 Adam Alejo DO Gastroenterology 01/07/16 Johnna Valente APRN, DINKEY DRIVER Nurse Practitioner Advanced Practice Nurse 01/07/16 Marisela Chaidez, MICHAEL, DINKEY DRIVER Nurse Practitioner Advanced Practice Nurse 01/07/16 Johnathan Pugh MD [address] [place] [address] Obstetrics & Gynecology 08/13/19 documented as of this encounter
--- OUTSIDE RECORDS SUMMARY | 2024-06-09 07:51 | XMS_ITS | Encounter Summary ---
Author Organization [facility] Address [address] [place] [address] Care Team Providers Care Custom Feed Corn Operator Name Role Phone Andrea Addison MD Unavailable Unavailab le Encounter Details Date Type Department Care Team (Latest Contact Info) Description 12/24/2016 9:18 AM CDT - 12/24/2016 11:59 PM CDT Hospital Encounter [facility] at [address] [address] Lyn Rosas MD [address] [place] [place] [address] Discharge Disposition: Home or Self Care Social History Tobacco Use Types Packs/Day Years Used Date Smoking Tobacco: Never Assessed Comments Yes Sex and Gender Information Value Date Recorded Sex Assigned at Not on file Gender Identity Not on file Sexual Orientation Not on file documented as of this encounter Progress Notes * Lyn Rosas MD - 12/24/2016 9:21 AM CDT Images from the original note were not included. Echocardiogram and Consultation Date: 12/24/2016 : little Referring Physician: Andrea Addison MD [address] [place] [address] [address] [place] [address] Addison, I had the pleasure of seeing your patient, Chelsie Constantino, for echocardiographic evaluation and consultation on 12/24/2016. Indications for echocardiogram include a history of arrhythmia. The following clinical information was available at the time of the evaluation: Maternal Age: 31 y.o. Gestational Age: 36 4/7 weeks Estimated Date of Delivery:01/17/2017 History : Complications of the : labor and ectopic beats Maternal Medical History: Fibromyalgia, history of antepartum diabetes: No Medications: vitamins, Nifedipine Social History: never smoker Family History of Congenital Heart Disease: No Previous Ultrasound: abnormal Abnormal HeartTones: none detected A complete 2-D, pulse wave and color Doppler echocardiogram was performed. The quality of thestudy was technically adequate. 2-D Findings: Visceroatrial situs solitus with levocardia. The systemic venous return was normal. There was atrioventricular and ventriculoarterial concordance. The right atrium and left atrium appeared normal size. There was a patent foramen ovale which bowed from right to left. The mitral valve and tricuspid valves were morphologically normal. The right and left ventricles were normal size for gestational age with normal wall thickness and normal systolic function. The ventricular septum appeared intact. The great vessels were normally related. The branch pulmonary arteries were confluent. A ductal arch was identified. The aortic arch appeared normal. No pericardial or pleural effusion. Doppler Examination: There was normal mitral and tricuspid inflow patterns with a dominant A wave and smaller E wave. No mitral or tricuspid insufficiency. There was normal laminar flow across the aortic and pulmonary valves. There was normal wxsjw-ns-vdnl shunting across the ductus arteriosus in systole with a small amount in diastole. There was normal flow pattern in the transverse aortic arch.No arrhythmia was detected. IMPRESSION: Normal echocardiogram. No ectopic beats noted during the study. RECOMMENDATIONS: I reviewed the findings of today's echocardiogram with the parents of the baby. I discussed that since there are no ectopic beats visualized on today's study that I could not confirm whether these were premature atrial or premature ventricular contractions. However I discussed that the most common type of arrhythmia noted in the fetus would be premature atrial contractions and these are typically benign with the exception of rare development of sustained tachycardia. I agree with continued weekly monitoring of the baby's heart rate. I discussed that after delivery when the foramen ovale begins to close, the premature atrial complexes will likely resolve. If irregular beats are appreciated in the nursery, an electrocardiogram could be performed to confirm thediagnosis. However these are expected to resolve and do not require any follow-up unless they persist beyond 1 month of life. I reassured them that there are no identified cardiac malformations on eriberto love's study, but that minor defects, such as small muscular VSDs or minor valve defects, could stillbe present postnatally. Based on the findings today, no further cardiology follow-up is needed unless new concerns or symptoms arise. Thank you again for allowing us to participate in the care of this patient. If you have any furtherquestions, please do not hesitate to contact me at . In general, echocardiography has an excellent sensitivity and specificity. However, certain heart lesions cannot be diagnosed in the fetus as they are a normal part of the circulation, e.g. secundum atrial septal defects and patent ductus arteriosus. Other congenital heart lesions that have proven difficult to diagnose in a fetus include coarctation of the aorta, total or partial anomalous pulmonary venous return, small ventricular septal defects, and coronary anomalies. Nor can we predict late gestation myocarditis or arrhythmias later in life such as Uxfla-Djstkhstl-Lakzk syndrome. Total time spent with the patient was 45 minutes with >50% time spent counseling regarding findings and limitations, and coordinating care. Sincerely, Lyn Rosas MD documented in this encounter Plan of Treatment Not on file documented as of this encounter Procedures Procedure Name Priority Date/Time Associated Diagnosis Comments ECHO CONSULT - Routine 12/24/2016 9:25 AM C DT arrhythmia affecting , antepartum (HCC) documented in this encounter Results * ECHO CONSULT - (12/24/2016 9:25 AM CDT) 12/24/2016 9:25 AM CDT Narrative Procedure Note Lyn Rosas MD - 12/24/2016 [address] [place] [address] Fax Echocardiogram Report Pat.Name: CHELSIE CONSTANTINO Jenny.ID: [id number] .Date: 12/24/2016 Exam Time: 9:25:00 AM Study Type: Echo Age: 1 1985,31Y Sex: FEMALE Sonogrphr: Mahogany Madrigal RDCS Pat. Stat.:Outpatient CPT - 4: [id number], [id number], [id number], [id number] Reason for Study:Hx of arrhythmia History / Clinical: arrhythmia Procedures: 2D Complete, Doppler Complete, Color Flow Visit ID: [id number] SUMMARY: Study Data: GA: 36w4d weeks. DEANN: 01/17/2017 . : 3. Para: 2. Type: Little. Lie: Vertex. Impression: The echocardiogram was within normal limits; however small atrial and ventricular septal defects and persistent ductus arteriosus cannot be excluded as findings. No ectopic beats noted. Findings: Anatomic Relationships: Left sided cardiac apex (levocardia). There is normal visceral-cardiac situs, and normal segmental cardiac anatomical relationship. Systemic Veins: There is normal systemic venous return. Pulmonary Veins: The visualized pulmonary veins drain normally to the left atrium. Right Atrium: The right atrial size is normal. Left Atrium: The left atrial size is normal. Atrial Septum: Patent foramen ovale is seen with the foramen flap bowing from right to left and color flow is right to left. Tricuspid Valve: The tricuspid valve is structurally normal. The inflow pattern is normal. Tricuspid velocity is within the normal range. There is no regurgitation present. Mitral Valve: The mitral valve is structurally normal. The inflow pattern is normal. Mitral velocity is within the normal range. There is no regurgitation present. Right Ventricle: The cavity size is normal. The wall thickness is normal. The systolic function is normal. RV Outflow Tract: The outflow tract is normal. Left Ventricle: The cavity size is normal. The wall thickness is normal. The systolic function is normal. LV Outflow Tract: The outflow tract is normal. Ventricular Septum: There is no defect with no shunting. Pulmonary Valve: Leaflets exhibited normal mobility. The transpulmonic velocity is within the normal range. There is no regurgitation present. Aortic Valve: Leaflets exhibited normal mobility. The transaortic velocity is within the normal range. There is no regurgitation present. Pulmonary Artery: The MPA is normal with confluent branch pulmonary arteries. Aorta: aortic arch visualized and is without obstruction by 2D, color flow and Doppler. Ductus Arteriosus: The antegrade flow velocity and pattern in the ductal arch is normal. A normal ductus arteriosus is appreciated. Hydrops Assessment: No pericardial effusion. No evidence of ascites or pleural effusion. Rhythm: The rhythm is normal. There is 1:1 AV conduction. Dopplers: Flow in the ductus venosus is normal. The umbilical vein flow pattern is normal. The umbilical artery flow pattern is normal. MEASUREMENTS: DOPPLER Mitral Valve MV pkE 0.4 m/s MV pkA 0.5 m/s Tricuspid Valve TV pkE 0.5 m/s Aortic Valve AVpkPG 3.4 mmHg AVpkVel 0.9 m/s Pulmonic Valve PV pkPG 1.8 mmHg PV pkVel 0.7 m/s Signed 12/24/2016 10:01 AM Lyn Rosas MD Lyn Rosas MD ECHO ORDERABLE S Performing Organization Address City/State/[facility] Co de Phone Number [facility] [address] [place] [address] documented in this encounter Visit Diagnoses Diagnosis arrhythmia affecting , antepartum (HCC)- Primary Abnormality in heart rate/rhythm, antepartum condition or complication documented in this encounter Care Teams Custom Feed Corn Operator Relationship Specialty Start Date End Date Andrea Addison MD Pillowcase Sewer Obstetrics and Gynecology 12/22/16 documented as of this encounter
--- OUTSIDE RECORDS SUMMARY | 2024-06-09 07:51 | XMS_ITS | Encounter Summary ---
Author Organization [facility] Address [address] [place] [address] Phone Care Team Providers Care Vinyl Cutter Name Role Phone Adam Alejo DO Unavailable [phone] Johnna Valente SEMI DRIVER, GEAR GENERATOR SET UP OPERATOR Unavailable [phone] Marisela Chaidez SEMI DRIVER, GEAR GENERATOR SET UP OPERATOR Unavailable Johnathan Pugh MD Unavailable [phone] Gwen Calero PAC Primary Care Pro vider Reason for Referral * Radiology Services (Routine) - Closed Specialty Diagnoses / Procedures Referred By Kavon lackey Referred To Contact Radiology Diagnoses Enlarged lymph node Procedures US RIGHT EXTREMITY NON-VASC LTD US SOFT TISSUE UNLISTED PROCEDURE Gwen Calero, PAC [address] [place] [address] Phone: tel: fax: Referral ID Status Reason Start Date Expiration Date Visits Re quested Visits Authorized [id number] Closed 05/07/2024 1 1 R LEAGUE BASEBALL PLAYER Reason for Visit * Radiology Services (Routine) - Closed Specialty Diagnoses / Procedures Referred By Kavon lackey Referred To Contact Radiology Diagnoses Enlarged lymph node Procedures US RIGHT EXTREMITY NON-VASC LTD US SOFT TISSUE UNLISTED PROCEDURE Gwen Calero, PAC [address] [place] [address] Phone: tel: fax: Referral ID Status Reason Start Date Expiration Date Visits Re quested Visits Authorized [id number] Closed 05/07/2024 1 1 Encounter Details Date Type Department Care Team (Latest Contact Info) Description 05/19/2024 9:30 AM MAJOR LEAGUE BASEBALL PLAYER - 05/19/2024 11:59 PM MAJOR LEAGUE BASEBALL PLAYER Hospital Encounter [facility] Ultrasound [address] [facility] [place] [address] Gwen Calero, PAC [address] [place] [address] Discharge Disposition: Discharged to home or Selfcare Social History Tobacco Use Types Packs/Day Years Used Date Smoking Tobacco: Former Cigarettes Q uit: 05/08/2016 Passive Smoke Exposure: Past Smokeless Tobacco: Never Comments:occasional smoker Alcohol Use Standard Drinks/Week Comments Yes 6 (1 standard drink = 0.6 oz pure alcohol) drinks three bottles of wine a week [facility] Utilities Answer Date Recorded In the past 12 months has [employer], [facility], oil, or water [employer] threatened to shut off services in your [...] week 11/08/2023 How often do you attend [facility] or anabaptist services? More than 4 times per year 11/08/2023 Do you belong to any clubs o r organizations such as anglican groups, unions, fraternal or athletic groups, or [...] place to sleep or slept in a mcc (including now)? Patient declined 11/08/2023 Education Answer [...] on file documented as of this encounter Medications at Time of Discharge omeprazole (PriLOSEC) 20 MG CAPSULE DELAYED RELEASE Take 1 Capsule by mouth daily. 90 Capsule 3 11/08/2023 ALPRAZolam (XANAX) 0.25 MG TabletIndications :Anxiety TAKE 1 TABLET BY MOUTH TWICE DAILY NEEDED FOR ANXIETY 30 Tablet 03/30/2024 06/08/2024 amitriptyline (ELAVIL) 25 MG Tablet Take 1 Tablet by mouth nightly. 30 Tablet 2 06/10/2023 06/08/2024 busPIRone (BUSPAR) 10 MG Tablet Take 1 Tablet by mouth nightly. 90 Tablet 2 03/26/2022 05/21/2024 ondansetron (ZOFRAN-ODT) 4 MG TABLET DISPERSIBLE Take 1 Tablet by mouth every 8 hours as needed for Nausea - 2nd line. 10 Tablet 11/18/2023 06/08/2024 documented as of this encounter Plan of Treatment Upcoming Encounters Date Type Department Care Team (Late st Contact Info) Description 06/19/2024 8:00 AM MAJOR LEAGUE BASEBALL PLAYER [facility] [address] [place] [address] Gwen Calero, PAC [address] [place] [address] Discharge Disposition: Discharged to home or Selfcare 06/19/2024 9:00 AM MAJOR LEAGUE BASEBALL PLAYER [facility] [address] [place] [address] Gwen Calero, PAC [address] [place] [address] Discharge Disposition: Discharged to home or Selfcare 08/13/2024 9:00 AM CDT Office Visit [facility] - Internal Medicine - [place] [address] [place] [id number] Gwen Calero, [facility] [address] [place] [address] documented as of this encounter Goals Goal [...] to change Department associated with goal: [facility] Steps to achieve [...] 6 sessions documented as of this encounter Procedures Procedure Name Priority Date/Time Associated Diagnosis Comments US RIGHT EXTREMITY NON-VASC LTD Routine 05/19/2024 10:14 AM MAJOR LEAGUE BASEBALL PLAYER Enlarged lymph node documented in this encounter Results * US RIGHT EXTREMITY NON-VASC LTD (05/19/2024 10:14 AM MAJOR LEAGUE BASEBALL PLAYER) Anatomical Region Laterality Modality BODY Right Ultrasound 05/25/2024 2:41 PM MAJOR LEAGUE BASEBALL PLAYER Impressions 05/25/2024 2:43 PM MAJOR LEAGUE BASEBALL PLAYER IMPRESSION: Unremarkable lymph nodes with a very thin cortex, similar to the previous ultrasound. Narrative 05/25/2024 2:43 PM MAJOR LEAGUE BASEBALL PLAYER EXAM DESCRIPTION: ?? US RIGHT EXTREMITY NON-VASC LTD REASON FOR STUDY: ?? RIGHT axillary lymph node ?? TECHNIQUE: A Dynamic assessment was performed of the ??right axilla ?? by the pro shop attendant, with selected grayscale and color Doppler images [...] PM T: ??05/25/2024 2:41 PM Report ID: [id number] Reading Location: ??[id number] Procedure Note Joaquim Madrid MD - 05/25/2024 EXAM DESCRIPTION: US RIGHT EXTREMITY NON-VASC LTD REASON FOR STUDY: RIGHT axillary lymph node TECHNIQUE: A Dynamic assessment was performed of the right axilla by the pro shop attendant, with selected grayscale and color Doppler images acquired and recorded in PACS. COMPARISON: 05/26/2020 FINDINGS: SKIN AND SUBCUTANEOUS TISSUES: Several lymph nodes with a very thin cortex are similar to the previous ultrasound. OTHER: No other significant finding. THIS IS AN ELECTRONICALLY VERIFIED FINAL REPORT 05/25/2024 2:41 PM - Electronically signed by Lorne Madrid M.D. RONNELL: RONNELL Report ID: [id number] Reading Location: [id number] IMPRESSION: Unremarkable lymph nodes with a very thin cortex, similar to the previous ultrasound. us Gwen Calero PAC IMG US ORDERABLES Final Result documented in this encounter Visit Diagnoses Diagnosis Enlarged lymph node Enlargement of lymph nodes documented in this encounter Additional Health Concerns Assessment Noted Time PHQ-9 Depression Total Score: 12 022 1:00 PM CDT documented as of this encounter Care Teams Vinyl Cutter Relationship Specialty Start Date End Date Gwen Calero, PAC [address] [place] [address] PCP - General Physician Facing Grinder 06/12/21 Adam Alejo DO Gastroenterology 01/07/16 Johnna Valente APRN, GEAR GENERATOR SET UP OPERATOR Nurse Practitioner Advanced Practice Nurse 01/07/16 Marisela Chaidez, MICHAEL, GEAR GENERATOR SET UP OPERATOR Nurse Practitioner Advanced Practice Nurse 01/07/16 Johnathan Pugh MD [address] [place] [address] Obstetrics & Gynecology 08/13/19 documented as of this encounter
--- OUTSIDE RECORDS SUMMARY | 2024-06-09 07:51 | XMS_ITS | Encounter Summary ---
Author Organization [facility] Address [address] [place] [address] Phone Care Team Providers Care Montessori Lead Teacher Name Role Phone Adam Alejo DO Unavailable [phone] Johnna Valente RETIREMENT BENEFITS SPECIALIST, SALES AGENT Unavailable Marisela Chaidez RETIREMENT BENEFITS SPECIALIST, SALES AGENT Unavailable Johnathan Pugh MD Unavailable [phone] Gwen Calero PAC Primary Care Pro vider Reason for Visit * Reason Comments Medication Refill Encounter Details Date Type Department Care Team (Late st Contact Info) Description 05/21/2024 Refill [facility] - Internal Medicine - [place] [address] [place] [phone] Gwen Calero, PAC [address] [facility] [place] [address] Medication Refill Social History Tobacco Use Types Packs/Day Years Used Date Smoking Tobacco: Former Cigarettes Q uit: 05/08/2016 Passive Smoke Exposure: Past Smokeless Tobacco: Never Comments:occasional smoker Alcohol Use Standard Drinks/Week Comments Yes 6 (1 standard drink = 0.6 oz pure alcohol) drinks three bottles of wine a week [facility] Utilities Answer Date Recorded In the past 12 months has [employer], gas, oil, or water company threatened to [...] often do you attend chur ch or christian services? More than 4 times per year 11/08/2023 Do you belong to any clubs o r organizations such as taoist groups, unions, fraternal or athletic groups, or [...] Total Score - Questions 1-9 12 01/05 [facility] - Occupational Stress Questionnaire Answer Date Recorded [...] place to sleep or slept in a penitentiary (including now)? Patient declined 11/08/2023 Education Answer [...] encounter Miscellaneous Notes * Telephone Encounter - Radha Johnson RN - 05/21/2024 8:48 AM CST Medication failed the protocol, provider to review and approve the medication order if appropriate. Requested Prescriptions Pending Prescriptions Disp Refills busPIRone (BUSPAR) 10 MG Tablet [Pharmacy Med Name: BUSPIRONE 10MG TABLETS] 90 Tablet 2 Sig: TAKE 1 TABLET BY MOUTH EVERY NIGHT Buspirone (6 Month Refill Only) Protocol Failed - 05/21/2024 8:48 AM Failed - Has an encounter in the past 6 months with a depression or anxiety visit diagnosis Passed - No test in the past 12 months or most recent test was negative Passed - No active on record Passed - Visit with relevant provider in past 6 months or upcoming 90 days Recent Visits Date Type Provider Dept 05/07/24 Office Visit Gwen Calero PAC [facility] 12/07/23 Office Visit Gwen Calero PAC [facility] Show[facility] recent visits within past 182 days and meeting all other requirements Future Appointments Date Type Provider Dept 06/08/24 Appointment Gwen Calero PAC [facility] Showing future appointments within next 90 days and meeting all other requirements Passed - Patient has established therapy with Buspirone for at least 6 months P OPERATOR documented in this encounter Plan of Treatment Upcoming Encounters Date Type Department Care Team (Late st Contact Info) Description 06/19/2024 8:00 AM SCOOP OPERATOR Appointment [facility] Mammography [address] [place] [address] Gwen Calero, PAC [address] [place] [address] Discharge Disposition: Discharged to home or Selfcare 06/19/2024 9:00 AM SCOOP OPERATOR [facility] [address] [place] [address] Gwen Calero, PAC [address] [place] [address] Discharge Disposition: Discharged to home or Selfcare 08/13/2024 9:00 AM CDT [facility] - [place] [address] [place] [phone] Gwen Calero, PAC [address] [place] [address] documented as of this encounter Goals Goal Patient Goal Type Associated Problems Recent Progress Patient-Stated? Author wants a quiet brain and to be able to focus on task at hand Behavioral Health Yes Meagan Cosme LCSW Improve attention skills Behavioral Health No Meagan Cosme [facility] Note: Goal/Objective: Increase attention skills. Anticipated Time Frame for Goal Completion: 3 months Goal Reviewed with: patient Readiness to change: Ready to change Department associated with goal: [facility] Steps to achieve goal: [...] documented as of this encounter Care Teams Montessori Lead Teacher Relationship Specialty Start Date End Date Gwen Calero PAC [address] [place] [address] PCP - General Physician Joint Machine Operator 06/12/21 Adam Alejo DO Gastroenterology 01/07/16 Johnna Valente, RETIREMENT BENEFITS SPECIALIST, SALES AGENT Nurse Practitioner Advanced Practice Nurse 01/07/16 Marisela Chaidez, RETIREMENT BENEFITS SPECIALIST, SALES AGENT Nurse Practitioner Advanced Practice Nurse 01/07/16 Johnathan Pugh MD [address] [place] [address] Obstetrics & Gynecology 08/13/19 documented as of this encounter
--- OUTSIDE RECORDS SUMMARY | 2024-06-09 07:51 | XMS_ITS | Clinical Summary ---
Author Organization [facility] Address [address] [facility] [place] [address] Care Team Providers Care Mangle Feeder Name Role Phone Andrea Addison MD Unavailable Unavailab le Source Comments [facility],non-owned Affiliates and Associated Physician Practices is amultiple site organization consisting of ambulatory clinics and hospital sitesin [place], [place], [place] and [place]. This disclosure is being madepursuant to the Care Everywhere program and may not contain all information available regarding this patient. Last updated 18.[facility] Tuan800 Social History Tobacco Use Types Packs/Day Years Used Date Smoking Tobacco: Never Assessed Sex and Gender Information Value Date Recorded Sex Assigned at Not on file Gender Identity Not on file Sexual Orientation Not on file Plan of Treatment Health Maintenance Due Date Last Done Comments PAP SMEAR 1985 HIV SCREENING 2000 HEPATITIS C SCREENING 06/17/2003 DTAP/TDAP/TD VACCINES (1 - Tdap) 2004 HEPATITIS B VACCINE (1 of 3 - 19+ 3-dose series) 2004 DEPRESSION SCREENING 06/06/2023 COVID-19 VACCINE (1 - 2023-2 5 season) 2024 INFLUENZA VACCINE (#1) 2024 ZOSTER VACCINE (1 of 2) 2035 HIB VACCINE Aged Out No longer eligi ble based on patient's age to complete this topic HPV VACCINE Aged Out No longer eligi ble based on patient's age to complete this topic MENINGOCOCCAL VACCINE Aged Out No carlton marilynn eligible based on patient's age to complete this topic PNEUMOCOCCAL VACCINE Aged Out No long er eligible based on patient's age to complete this topic Care Teams Mangle Feeder Relationship Specialty Start Date End Date Andrea Addison MD Critical Care Specialist Obstetrics and Gynecology 12/22/16
--- OUTSIDE RECORDS SUMMARY | 2024-06-09 07:51 | XMS_ITS | Referral Summary ---
Author Organization [facility] Address [address] [place] [address] Care Team Providers Care Unit Aid Name Role Phone Andrea Addison MD Unavailable Unavailab le Source Comments [facility] Affiliates and Associated Physician Practices is amultiple site organization consisting of ambulatory clinics and hospital sitesin [place], [place], [place] and [place]. This disclosure is being madepursuant to the Care Everywhere program and may not contain all information available regarding this patient. Last updated 18.[facility] [place] Social History Tobacco Use Types Packs/Day Years Used Date Smoking Tobacco: Never Assessed Sex and Gender Information Value Date Recorded Sex Assigned at Not on file Gender Identity Not on file Sexual Orientation Not on file Plan of Treatment Not on file Care Teams Unit Aid Relationship Specialty Start Date End Date Andrea Addison MD Electronics Research Engineer Obstetrics and Gynecology 12/22/16
--- OUTSIDE RECORDS SUMMARY | 2024-06-09 07:51 | XMS_ITS | Encounter Summary ---
Author Organization [facility] Address [address] [place] [address] Phone Care Team Providers Care Field Clerk Name Role Phone Adam Alejo DO Unavailable [phone] Johnna Valente UNIVERSITY DEMONSTRATOR, WIND TURBINE DESIGN ENGINEER Unavailable [phone] Marisela Chaidez UNIVERSITY DEMONSTRATOR, WIND TURBINE DESIGN ENGINEER Unavailable Johnathan Pugh MD Unavailable [phone] Gwen Calero PAC Primary Care Pro vider Encounter Details Date Type Department Care Team (Late st Contact Info) Description 01/02/2024 Telephone [facility] - Internal Medicine - [place] [address] [place] [address] Gwen Calero, [facility] [address] [place] [address] Social History Tobacco Use Types Packs/Day Years Used Date Smoking Tobacco: Former Cigarettes Q uit: 05/08/2016 Passive Smoke Exposure: Past Smokeless Tobacco: Never Comments:occasional smoker Alcohol Use Standard Drinks/Week Comments Yes 6 (1 standard drink = 0.6 oz pure alcohol) drinks three bottles of wine a week [facility] Utilities Answer Date Recorded In the past 12 months has [employer], gas, oil, or water [employer] threatened to shut off services in your [...] How often do you attend chur or mu-ism services? More than 4 times per year 11/08/2023 Do you belong to any clubs o r organizations such as temple groups, unions, fraternal or athletic groups, or [...] Total Score - Questions 1-9 12 01/05 [facility] - Occupational Stress Questionnaire Answer [...] place to sleep or slept in a long term (including now)? Patient declined 11/08/2023 Education Answer [...] encounter Miscellaneous Notes * Telephone Encounter - [place] - 01/02/2024 10:20 AM CDT Patient called, she was referred to GI, they can not get her in until March. She is asking if youwould like to go ahead and order testing since it is going to be a while before she see's GI documented in this encounter Plan of Treatment Upcoming Encounters Date Type Department Care Team (Late st Contact Info) Description 06/19/2024 8:00 AM STAFF RN Appointment [facility] Mammography [address] [place] [address] Gwen Calero, PAC [address] [place] [address] Discharge Disposition: Discharged to home or Selfcare 06/19/2024 9:00 AM STAFF RN Appointment [facility] Ultrasound [address] [place] [address] Gwen Calero, CECY [address] [place] [address] Discharge Disposition: Discharged to home or Selfcare 08/13/2024 9:00 AM CDT Office Visit [facility] - Internal Medicine - [place] [address] [place] [id number] Gwen Calero, CECY [address] [place] [address] documented as of this encounter Goals Goal [...] Ready to change Department associated with goal: [facility] Steps to achieve goal: [...] Noted Time PHQ-9 Depression Total Score: 12 01/27/2 022 1:00 PM CDT documented as of this encounter Care Teams Field Clerk Relationship Specialty Start Date End Date Gwen Calero, CECY [address] [place] [address] PCP - General Physician Regional Clinical Director 06/12/21 Adam Alejo DO Gastroenterology 01/07/16 Johnna Valente APRN, WIND TURBINE DESIGN ENGINEER Nurse Practitioner Advanced Practice Nurse 01/07/16 Marisela Chaidez, MICHAEL, WIND TURBINE DESIGN ENGINEER Nurse Practitioner Advanced Practice Nurse 01/07/16 Johnathan Pugh MD [address] [place] [address] Obstetrics & Gynecology 08/13/19 documented as of this encounter
--- OUTSIDE RECORDS SUMMARY | 2024-06-09 07:51 | XMS_ITS | Patient Health Summary ---
Author Organization [facility] Address [address] [place] [address] Care Team Providers Care Camera Storage Clerk Name Role Phone Andrea Addison MD Unavailable Unavailab le Note from [facility],non-owned Affiliates and Associated Physician Practices is amultiple site organization consisting of ambulatory clinics and hospital sitesin [place], [place], [place] and [place]. This disclosure is being madepursuant to the Care Everywhere program and may not contain all information available regarding this patient. Last updated 18.[facility] Social History Tobacco Use Types Packs/Day Years Used Date Smoking Tobacco: Never Assessed Sex and Gender Information Value Date Recorded Sex Assigned at Not on file Gender Identity Not on file Sexual Orientation Not on file Procedures * ECHO CONSULT - (Performed 12/24/2016) Performed for arrhythmia affecting , antepartum (HCC) Results * ECHO CONSULT - (12/24/2016 9:25 AM CDT) 12/24/2016 9:25 AM CDT Narrative Procedure Note Lyn Rosas MD - 12/24/[address] [place] [address] Fax Echocardiogram Report Pat.Name: CHELSIE CONSTANTINO Pat.ID: [id number] St.Date: 12/24/2016 Exam Time: 9:25:00 AM Study Type: Echo Age: 1 1985,31Y Sex: FEMALE Sonogrphr: Mahogany Madrigal RDCS Pat. Stat.:Outpatient CPT - 4: [id number], [id number], [id number], [id number] Reason for Study:Hx of arrhythmia History / Clinical: arrhythmia Procedures: 2D Complete, Doppler Complete, Color Flow Visit ID: [id number] SUMMARY: Study Data: GA: 36w4d weeks. DEANN: 01/17/2017 . : 3. Para: 2. Type: Mayo. Lie: Vertex. Impression: The echocardiogram was within [...] MD Lyn Rosas MD ECHO ORDERABLE S [facility] [address] [place] [address] Care Teams Camera Storage Clerk Relationship Specialty Start Date End Date Andrea Addison MD Drywall Professional Obstetrics and Gynecology 12/22/16
--- OUTSIDE RECORDS SUMMARY | 2024-06-09 07:51 | XMS_ITS | Encounter Summary ---
Author Organization [employer] Care Team Providers Care Clinical Psychologist Private Practice Name Role Phone Adam Alejo DO Unavailable [phone] Johnna Valente BOX COVERING MACHINE OPERATOR, HOUSE COORDINATOR Unavailable Marisela Chaidez BOX COVERING MACHINE OPERATOR, HOUSE COORDINATOR Unavailable Johnathan Pugh MD Unavailable [phone] Gwen Calero PAC Primary Care Pro vider Encounter Details Date Type Department Care Team (Latest Contact Info) Description 05/19/2024 Travel Social History Tobacco Use Types Packs/Day Years Used Date Smoking Tobacco: Former Cigarettes Q uit: 05/08/2016 Passive Smoke Exposure: Past Smokeless Tobacco: Never Comments:occasional smoker Alcohol Use Standard Drinks/Week Comments Yes 6 (1 standard drink = 0.6 oz pure alcohol) drinks three bottles of wine a week [facility] Utilities Answer Date Recorded In the past 12 months has [employer], oil, or water [employer] threatened to shut off services in your [...] How often do you attend chur or confucianism services? More than 4 times per year 11/08/2023 Do you belong to any clubs o r organizations such as caodaism groups, unions, fraternal or athletic groups, or [...] Total Score - Questions 1-9 12 01/05 [facility] - Occupational Stress Questionnaire Answer [...] place to sleep or slept in a jail (including now)? Patient declined 11/08/2023 Education Answer [...] st Contact Info) Description 06/19/2024 8:00 AM INTELLECTUAL PROPERTY COUNSEL [facility]ointment [facility] Mamm[facility] [address] [place] [address] Gwen Calero, PAC [address] [place] [address] Discharge Disposition: Discharged to home or Selfcare 06/19/2024 9:00 AM INTELLECTUAL PROPERTY COUNSEL [facility]ointment [facility] [address] [place] [address] Gwen Calero, PAC [address] [place] [address] Discharge Disposition: Discharged to home or Selfcare 08/13/2024 9:00 AM CDT Office Visit [facility] - [facility] - [place] [address] [place] [phone] Gwen Calero, PAC [address] [place] [address] documented as of this encounter Goals Goal [...] Ready to change Department associated with goal: [facility] Steps to achieve goal: [...] documented as of this encounter Care Teams Clinical Psychologist Private Practice Relationship Specialty Start Date End Date Gwen Calero PAC [address] [place] [address] PCP - General Physician Folder Machine 06/12/21 Adam Alejo DO Gastroenterology 01/07/16 Johnna Valente APRN, HOUSE COORDINATOR Nurse Practitioner Advanced Practice Nurse 01/07/16 Marisela Chaidez APRN, HOUSE COORDINATOR Nurse Practitioner Advanced Practice Nurse 01/07/16 Johnathan Pugh MD [address] [place] [address] Obstetrics & Gynecology 08/13/19 documented as of this encounter
--- OUTSIDE RECORDS SUMMARY | 2024-06-09 07:51 | XMS_ITS | Data Portability ---
Author Organization [facility] [place] Address [address] [place] [address] [place] [address] Assessment No assessment recorded. Plan of Treatment Reminders Order Date Submit Date Provider Last Modified By Organization Details Last Modified Time Details Appointments None recorded. Lab 17-hydroxyp rogesterone , QN, serum 2022 023 [facility] (Lab), [address], [place], [address], 3 19:27:48 unlisted lab - [facility] swab plus, MICH 2023 024 [facility] (Lab), [address], [place], [address], 4 14:30:34 Referral None recorded. Procedures None recorded. Surgeries hysteroscop y, surgical, with biopsy of endometrium and/or polypectomy (SURG) [address]23 [email or web address] [place] [address], [facility] [address], [place], [address], 4 17:00:16 Imaging US, pelvis, complete 2022 023 [facility], [facility] [address], [place], [address], 4 05:01:45 US, pelvis 2023 024 [email or web address] [place], [facility] [address], [place], [address], 4 21:38:40 US, transvagina l 2023 024 [email or web address] [facility] [address], [place], [address], 4 21:38:40 Medication Orders metronidazo le 500 mg tablet 2023 024 [id number], [address], [place], [place], [id number], 4 09:47:48 Patient TargetsNo targets recorded. Patient InstructionsNo instructions recorded. Reason for Referral None Reported. Results Created Date Observation Date Name Description Value Unit Range Abnormal Flag Note LastModifiedBy Organization Detail LastModifiedTime 03/30/2003/30/2023 CT/GC AND TRICH OMONA S VAGIN CALEB (RRNA ), URINE chlamydia trachomatis, PCR Negati ve negati ve Not Available [facility] (Lab) [address], [place], [address], 03/31/2023 16:06:42 03/30/2003/30/2023 CT/GC AND TRICH OMONA S VAGIN CALEB (RRNA ), URINE neisseria gonorrhoeae, PCR Negati ve negati ve Not Available [facility] (Lab) [address], [place], [address], 03/31/2023 16:06:42 03/30/2003/30/2023 CT/GC AND TRICH OMONA S VAGIN CALEB (RRNA ), URINE trichomonas vaginalis ribosomal RNA (rrna) Negati ve negati ve Not Available [facility] (Lab) [address], [place], [address], 03/31/2023 16:06:42 03/30/2003/30/2023 CBC W/DIF F WBC 7.9 10'3/ uL 3.6-[address] [facility] (Lab) [address], [place], [address], 04/05/2023 19:27:45 03/30/2003/30/2023 CBC W/DIF F RBC 4.83 10'6/ uL (based on docume nted legal sex) 4.10-[address] [facility] (Lab) [address], [place], [address], 04/05/2023 19:27:45 03/30/2003/30/2023 CBC W/DIF F HGB 15.4 g/dL (based on docume nted legal sex) 11.9-[address] [facility] (Lab) [address], [place], [address], 04/05/2023 19:27:45 03/30/2003/30/2023 CBC W/DIF F HCT 45.9 % (based on docume nted legal sex) 37.4-[address] [facility] (Lab) [address], [place], [address], 04/05/2023 19:27:45 03/30/2003/30/2023 CBC W/DIF F MCV 95.0 fL 82.0-[address] [facility] (Lab) [address], [place], [address], 04/05/2023 19:27:45 03/30/2003/30/2023 CBC W/DIF F MCH 31.9 pg 27.0-[address] [facility] (Lab) [address], [place], [address], 04/05/2023 19:27:45 03/30/2003/30/2023 CBC W/DIF F MCHC 33.6 g/dL 32.0-[address] [facility] (Lab) [address], [place], [address], 04/05/2023 19:27:45 03/30/20 23 03/30/2023 CBC W/DIF F RDW 12.0 % 11.0-[address] [facility] (Lab) [address], [place], [address], 04/05/2023 19:27:45 03/30/20 23 03/30/2023 CBC W/DIF F plt 252 10'3/ uL 150-[address] [facility] (Lab) [address], [place], [address], 04/05/2023 19:27:45 03/30/20 23 03/30/2023 CBC W/DIF F MPV 9.7 fL 9.8-12 [address] [facility] (Lab) [address], [place], [address], 04/05/2023 19:27:45 03/30/20 23 03/30/2023 CBC W/DIF F NRBC's 0.0 % [address] [facility] (Lab) [address], [place], [address], 04/05/2023 19:27:45 03/30/20 23 03/30/2023 CBC W/DIF F absolute NRBCs 0.0 10'3/ uL [address] [facility] (Lab) [address], [place], [address], 04/05/2023 19:27:45 03/30/20 23 03/30/2023 CBC W/DIF F neutrophils 62.4 % 37.0-[address] [facility] (Lab) [address], [place], [address], 04/05/2023 19:27:45 03/30/20 23 03/30/2023 CBC W/DIF F lymphocytes 25.1 % 16.0-[address] [facility] (Lab) [address], [place], [address], 04/05/2023 19:27:45 03/30/20 23 03/30/2023 CBC W/DIF F monocytes 7.5 % 4.0-[address] [facility] (Lab) [address], [place], [address], 04/05/2023 19:27:45 03/30/20 23 03/30/2023 CBC W/DIF F eosinophils 4.3 % 0.0-9. [address] [facility] (Lab) [address], [place], [address], 04/05/2023 19:27:45 03/30/20 23 03/30/2023 CBC W/DIF F basophils 0.4 % 0.0-2. [address] [facility] (Lab) [address], [place], [address], 04/05/2023 19:27:45 03/30/20 23 03/30/2023 CBC W/DIF F immature granulocytes 0.3 % no define d refere nce range Not Available [facility] (Lab) [address], [place], [address], 04/05/2023 19:27:45 03/30/20 23 03/30/2023 CBC W/DIF F absolute neutrophils 4.9 10'3/ uL 1.1-6. [address] [facility] (Lab) [address], [place], [address], 04/05/2023 19:27:45 03/30/20 23 03/30/2023 CBC W/DIF F absolute lymphocytes 2.0 10'3/ uL 0.7-3. [address] [facility] (Lab) [address], [place], [address], 04/05/2023 19:27:45 03/30/20 23 03/30/2023 CBC W/DIF F absolute monocytes 0.6 10'3/ uL 0.3-1. [address] [facility] (Lab) [address], [place], [address], 04/05/2023 19:27:45 03/30/20 23 03/30/2023 CBC W/DIF F absolute eosinophils 0.3 10'3/ uL 0.0-0. [address] [facility] (Lab) [address], [place], [address], 04/05/2023 19:27:45 03/30/20 23 03/30/2023 CBC W/DIF F absolute basophils 0.0 10'3/ uL 0.0-0. [address] [facility] (Lab) [address], [place], [address], 04/05/2023 19:27:45 03/30/20 23 03/30/2023 CBC W/DIF F absolute immature granulocytes 0.0 10'3/ uL 0.00-0 .10 03/31 2:22 AM: P indic ates parti al resul ts on a panel have been relea sed. Addit ional resul ts will follo w. 03/31 2:22 AM: This resul t has been final verif ied. No addit ional or srinivasan ed resul ts are expec breana. Not Available [facility] (Lab) [address], [place], [address], 04/05/2023 19:27:45 03/30/2003/30/2023 LIPID PANEL ,AMA (LDL- CALC) total cholesterol 141 mg/dL 0-199 Not Available [facility] (Lab) [address], [place], [address], 04/05/2023 19:27:46 03/30/2003/30/2023 LIPID PANEL ,AMA (LDL- CALC) triglyceride s 132 mg/dL 0.00-1 50.00 NCEP Refer ence Value s for Trigl yceri cristo: Edelmira l: <150 mg/dL Borde rline High: 150 - 199 mg/dL High: 200 - 499 mg/dL Very High: >/= 500 mg/dL Not Available [facility] (Lab) [address], [place], [address], 04/05/2023 19:27:46 03/30/2003/30/2023 LIPID PANEL ,AMA (LDL- CALC) HDL cholesterol 29 mg/dL >40 low Not Available [facility] (Lab) [address], [place], [address], 04/05/2023 19:27:46 03/30/2003/30/2023 LIPID PANEL ,AMA (LDL- CALC) LDL cholesterol 89 mg/dL 0-99 Cutof f value s recom annie d by the Natio nal Melissa stero l Educa tion Progr am: NOEMI ABLE: Melissa stero l <200 mg/dL LDL <100 mg/dL BORDE RLINE : Melissa stero l 200-2 39 mg/dL LDL 101-1 59 mg/dL HIGHE R RISK: Melissa stero l >240 mg/dL LDL >160 mg/dL , HDL <40 mg/dL Not Available [facility] (Lab) [address], [place], [address], 04/05/2023 19:27:46 03/30/2003/30/2023 LIPID PANEL ,AMA (LDL- CALC) non-HDL cholesterol 112 mg/dL no refere nce range A reaso nable goal for non-H DL melissa stero l is one that is 30 mg/dL highe r than the LDL melissa stero l goal. Not Available [facility] (Lab) [address], [place], [address], 04/05/2023 19:27:46 03/30/2003/30/2023 LIPID PANEL ,AMA (LDL- CALC) chol/HDL ratio 4.9 . 0.0-5. 0 On September 28, 2022, [facility] labor kamila srinivasan ed the equat ion for calcu latin g estim ated low-d ensit y lipop rotei n-cho leste rol (LDL- C) from the Yudith caceresald equat ion to the Yola n/Hop chet equat ion. This new equat ion is only valid for lipid panel s with trigl yceri cristo < 400 mg/dL . Studi es have marcioon hiren ed that this new equat ion will impro ve the accur acy of LDL-C , espec ially in scena auguste when LDL-C cyndi ntrat ions are relat ively low (< 100 mg/dL ), trigl yceri cristo are eleva breana, or patie nt is non-f astin g. Refer ences : - Yola singh, Dago Denton, Andry Ruano , Erna healy, Connor Matson, Connor qiu, Jamel Funez. Vignesh white , and [place]es [place] . 2013. Comp ariso n of a Novel Metho d vs the Fried chrissie Equat ion for Estim ating Low-D ensit y Lipop rotei n Melissa stero l Level s from the Stand raman Lipid Profi le. [place]: The Journ al of the Ameri can Medic al Assoc iatio n 310 (19): 2060- . - Seamus shrestha V, Sylvie J, Khloe ar A, Prasanna M, Rebecca e R, Sulaiman shrestha E, Vignesh white RS, Tin SR, Yola singh SS. Fast ing Versu s Nonfa sting and Low-D ensit y Lipop rotei n Melissa stero l Accur acy. Circu latio n. 2017Jun 07;137 (1):1 0-19. Not Available [facility] (Lab) [address], [place], [address], 04/05/2023 19:27:46 03/30/20 23 03/30/2023 CMP(C OMPRE HENSI VE METAB OLIC PANEL ) sodium 137 mmol/ L 133-[address] [facility] (Lab) [address], [place], [address], 04/05/2023 19:27:46 03/30/20 23 03/30/2023 CMP(C OMPRE HENSI VE METAB OLIC PANEL ) potassium 4.1 mmol/ L 3.5-5. [address] [facility] (Lab) [address], [place], [address], 04/05/2023 19:27:46 03/30/20 23 03/30/2023 CMP(C OMPRE HENSI VE METAB OLIC PANEL ) chloride 105 mmol/ L 98-[address] [facility] (Lab) [address], [place], [address], 04/05/2023 19:27:46 03/30/20 23 03/30/2023 CMP(C OMPRE HENSI VE METAB OLIC PANEL ) carbon dioxide 22 mmol/ L 21-[address] [facility] (Lab) [address], [place], [address], 04/05/2023 19:27:46 03/30/20 23 03/30/2023 CMP(C OMPRE HENSI VE METAB OLIC PANEL ) anion gap 10 mmol/ L 4-[address] [facility] (Lab) [address], [place], [address], 04/05/2023 19:27:46 03/30/20 23 03/30/2023 CMP(C OMPRE HENSI VE METAB OLIC PANEL ) blood urea nitrogen 14 mg/dL 7-25 Not Available [facility] (Lab) [address], [place], [address], 04/05/2023 19:27:46 03/30/20 23 03/30/2023 CMP(C OMPRE HENSI VE METAB OLIC PANEL ) creatinine 0.97 mg/dL 0.60-[address] [facility] (Lab) [address], [place], [address], 04/05/2023 19:27:46 03/30/20 23 03/30/2023 CMP(C OMPRE HENSI VE METAB OLIC PANEL ) egfrcr (CKD-epi 2020) 77 mL/mi n/1.7 3_m2 >=[address] [facility] (Lab) [address], [place], [address], 04/05/2023 19:27:46 03/30/20 23 03/30/2023 CMP(C OMPRE HENSI VE METAB OLIC PANEL ) calcium 9.5 mg/dL 8.3-[address] [facility] (Lab) [address], [place], [address], 04/05/2023 19:27:46 03/30/20 23 03/30/2023 CMP(C OMPRE HENSI VE METAB OLIC PANEL ) glucose 93 mg/dL 70-[address] [facility] (Lab) [address], [place], [address], 04/05/2023 19:27:46 03/30/20 23 03/30/2023 CMP(C OMPRE HENSI VE METAB OLIC PANEL ) protein, total 6.9 g/dL 6.4-8. [address] [facility] (Lab) [address], [place], [address], 04/05/2023 19:27:46 03/30/20 23 03/30/2023 CMP(C OMPRE HENSI VE METAB OLIC PANEL ) albumin 4.4 g/dL 3.5-5. [address] [facility] (Lab) [address] [place], [address], 04/05/2023 19:27:46 03/30/20 23 03/30/2023 CMP(C OMPRE HENSI VE METAB OLIC PANEL ) ALT 15 units /L 9-[address] [facility] (Lab) [address], [place], [address], 04/05/2023 19:27:46 03/30/20 23 03/30/2023 CMP(C OMPRE HENSI VE METAB OLIC PANEL ) alkaline phosphatase 54 units /L 34-[address] [facility] (Lab) [address], [place], [address], 04/05/2023 19:27:46 03/30/2003/30/2023 CMP(C OMPRE HENSI VE METAB OLIC PANEL ) AST 16 units /L 13-[address] [facility] (Lab) [address], [place], [address], 04/05/2023 19:27:46 03/30/2003/30/2023 CMP(C OMPRE HENSI VE METAB OLIC PANEL ) bilirubin, total 0.6 mg/dL 0.2-1. [address] [facility] (Lab) [address], [place], [address], 04/05/2023 19:27:46 03/30/2003/30/2023 MIRI TIN / IRON / TRANS MIRI N / TIBC iron 104 ug/dL 40-[address] [facility] (Lab) [address], [place], [address], 04/05/2023 19:27:47 03/30/2003/30/2023 MIRI TIN / IRON / TRANS MIRI N / TIBC transferrin 317 mg/dL 200-[address] [facility] (Lab) [address], [place], [address], 04/05/2023 19:27:47 03/30/2003/30/2023 MIRI TIN / IRON / TRANS MIRI N / TIBC ferritin 58.7 NG/mL 8.0-[address] [facility] (Lab) [address], [place], [address], 04/05/2023 19:27:47 03/30/2003/30/2023 MIRI TIN / IRON / TRANS MIRI N / TIBC TIBC 444 ug/dL 250-[address] [facility] (Lab) [address], [place], [address], 04/05/2023 19:27:47 03/30/2003/30/2023 MIRI TIN / IRON / TRANS MIRI N / TIBC iron saturation 23 % 20-55 Not Available [facility] (Lab) [address], [place], [address], 04/05/2023 19:27:47 03/30/2003/30/2023 TSH, REFLE X FREE T4 TSH 1.90 uIU/m L 0.30-[address] [facility] (Lab) [address], [place], [address], 04/05/2023 19:27:47 03/30/2003/30/2023 VITAM IN B12 / FOLAT E PANEL vitamin B12 259 pg/mL 180-91 4 Edelmira l Range : 180-9 14 pg/mL . Indet ermin ate Range : 145-1 80 pg/mL . Defic ient Range : <=145 pg/mL . Not Available [facility] (Lab) [address], [place], [address], 04/05/2023 19:27:47 03/30/2003/30/2023 VITAM IN B12 / FOLAT E PANEL folate, serum 3.7 NG/mL 6.0-20 [address] [facility] (Lab) [address], [place], [address], 04/05/2023 19:27:47 03/30/2003/30/2023 VITAM IN D, 25-OH (TOTA L D2/D3 ) vitamin D, 25-hydroxy, total 26.8 NG/mL 30.0-1 00.0 low Sugge stive of Defic iency : <20 ng/mL Sugge stive of Insuf ficie ncy: 20-29 ng/mL Sugge stive of Suffi cienc y: 30-10 0 ng/mL Sugge stive of Toxic ity: >150 ng/mL Not Available [facility] (Lab) [address], [place], [address], 04/05/2023 19:27:48 03/30/2003/30/2023 HEMOG LOBIN A1C hemoglobin A1C 5.2 % 0-5.6 The Ameri can Diabe fabian Assoc iatio n recom mends that a prima ry goal of thera py shoul d be a HBA1C of < 7% and that physi cians shoul d reeva luate the treat ment regim en in patie nts with HBA1C value s consi stent ly > 8%. <5.7% Edelmira l 5.7 - 6.4% Incre ased risk for diabe fabian >=6.5 % Diagn ostic of diabe fabian <7.0% Goal of thera py >8.0% Actio n sugge sted Not Available [facility] (Lab) [address], [place], [address], 04/05/2023 19:27:48 03/30/2003/30/2023 17-OH PROGE STERO NE 17-hydroxypr ogesterone, lc/MS/MS 277 NG/dL Adult Femal e Refer ence Range s for 17-Hy droxy proge stero ne: Pre-M enopa usal Mid Folli cular : 23-10 2 ng/dL Pre-M enopa usal Surge : 67-34 9 ng/dL Pre-M enopa usal Mid Lutea l: 139-4 31 ng/dL Postm enopa usal Phase : < or = 45 ng/dL Pregn aki: First Trime ster: 78-45 7 ng/dL Secon d Trime ster: 90-35 7 ng/dL Third Trime ster: 144-5 78 ng/dL This test was devel oped and its karly tical perfo rmanc e ramón cteri stics have been deter mined by [facility]. It has not been clear ed or appro trista by FDA. This assay has been valid ated pursu ant to the CLIA regul ation s and is used for clini conor purpo ses. Perfo rming Organ izati on Infor matkiran n: Site ID: [id number] Name: [facility]/Jm christina SJC-S Catarina Geronimore ss: [id number] [place] [address] Direc tor: Hawa okeefe MD,Ph D,IMER Not Available [facility] (Lab) [address], [place], [address], 04/05/2023 19:27:48 03/30/2003/30/2023 urina lysis , dipst ick pH 5 Not Available [place] [address], [place], [address], 03/30/2023 09:57:33 03/30/2003/30/2023 urina lysis , dipst ick Specific [place] 1.020 Not Available [facility] [address], [place], [address], 03/30/2023 09:57:33 10/27/19 24 10/27/2023 CT/GC AND TRICH OMONA S VAGIN CALEB (RRNA ), SWAB chlamydia trachomatis, PCR Negati ve negati ve Not Available [facility] (Lab) [address], [place], [address], 10/28/2023 15:25:08 10/27/19 24 10/27/2023 CT/GC AND TRICH OMONA S VAGIN CALEB (RRNA ), SWAB neisseria gonorrhoeae, PCR Negati ve negati ve Not Available [facility] (Lab) [address], [place], [address], 10/28/2023 15:25:08 10/27/19 24 10/27/2023 CT/GC AND TRICH OMONA S VAGIN CALEB (RRNA ), SWAB trichomonas vaginalis ribosomal RNA (rrna) Negati ve negati ve Not Available [facility] (Lab) [address], [place], [address], 10/28/2023 15:25:08 04/17/20 24 04/17/2024 WOMEN 'S HEALT H SWAB PLUS, MICH bacterial vaginosis (bv), tma Positi ve negati ve abnormal Not Available [facility] (Lab) [address], [place], [address], 04/18/2024 14:30:34 04/17/20 24 04/17/2024 WOMEN 'S HEALT H SWAB PLUS, MICH renee species, tma Negati ve negati ve Not Available [facility] (Lab) [address] [place], [address], 04/18/2024 14:30:34 04/17/20 24 04/17/2024 WOMEN 'S HEALT H SWAB PLUS, MICH renee glabrata, tma Negati ve negati ve Not Available [facility] (Lab) [address] [place], [address], 04/18/2024 14:30:34 04/17/20 24 04/17/2024 [facility] MICH trichomonas vaginalis, tma Negati ve negati ve Not Available [facility] (Lab) [address] [place], [address], 04/18/2024 14:30:34 04/17/20 24 04/17/2024 [facility], MICH chlamydia trachomatis, PCR Negati ve negati ve Not Available [facility] (Lab) [address] [place], [address], 04/18/2024 14:30:34 04/17/20 24 04/17/2024 WOMEN 'S HEALT H SWAB PLUS, MICH neisseria gonorrhoeae, PCR Negati ve negati ve Bacte rial vagin osis detec ts the follo wing bacte genny assoc iated with bacte rial vagin osis (BV): Lacto bacil raz (L. gasse ri, L. crisp atus and L. jense sonali), Gardn erell a vagin caleb, and Atopo bium vagin ae. A singl e quali tativ e resul t is repor breana base on instr ument softw are to deter mine BV posit gold or negat gold statu s. The Ciara da speci es group tests for C. albic ans, C. tropi calis , C. parap naida is, C. dubli niens is. Testi ng is perfo rmed using the Trans cript ion Media breana Ampli ficat ion metho d. Tests for Ciara da glabr codi, Trich omona s vagin caleb, Chlam ydia trach omati s, and Neiss eria gonor rhoea e are also inclu ded in this panel . Not Available [facility] (Lab) [address], [place], [address], 04/18/2024 14:30:34 11/08/19 24 11/08/2023 US, pelvi s No observ ation record ed. [email or web address] [place] [address], [place], [address], 11/08/2023 12:55:46 11/08/19 24 11/08/2023 US, trans vagin al No observ ation record ed. [email or web address] [place] [address], [place], [address], 11/08/2023 12:55:36 11/08/19 24 11/08/2023 US, pelvi s No observ ation record ed. [email or web address], [facility], [place], [address], 11/16/2023 11:01:25 Result Notes None recorded. Procedures Surgical History Date Name Laterality Status Provider Name and Address Organization Details Recorded Time 11/17/19 Endometrial Ablation completed Mercedes Dumont [facility] 10/27/2023 10:15:40 11/17/19 LOOP ELECTRODE EXCISION PROCEDURE, SURGICAL (LEEP) (SURG) completed Rose Burks [facility] 11/17/2022 10:10:43 10/20/19 Colposcopy completed More[facility]ita Zuleta [facility] [address], [place], [address], [facility] 10/21/2022 09:41:59 10/20/19 23 Colposcopy completed Keke Meadows [facility] 11/08/2022 11:33:52 09/21/19 23 Date of Last Pap Smear completed Mercedes Dumont [facility] 10/19/2022 17:23:42 08/22/19 22 Colposcopy completed Morenita Zuleta [facility]- [address], [place], [address], [facility] 08/21/2021 14:39:30 08/22/19 22 Colposcopy completed Blanca Cerrato [facility] 09/18/2022 10:11:24 08/22/19 22 Colposcopy completed Annabelle Gomez [facility] 08/21/2021 15:11:41 Imaging Results Imaging Date Name Status LastModified by Organization Details LastModified Time 11/08/2023 US, pelvis completed [email or web address] [place] [address], [place], [address], 11/08/2023 12:55:46 11/08/2023 US, transvaginal completed [email or web address] [address], [place], [address], 11/08/2023 12:55:36 11/08/2023 US, pelvis completed [facility] [address], [place], [address], 11/16/2023 11:01:25 Procedure Notes None recorded. Medical Equipment None Reported. Allergies No known drug allergies Medications Name Sig Start Date Stop Date Status Note LastModified by Organization Details LastModified Time cyclobenzap rine 10 mg tablet TAKE 1 TABLET BY MOUTH TWICE A DAY DIRECTED FOR 7 DAYS 10/26 completed Not Available Not Available Not Available amoxicillin 500 mg capsule TAKE ONE CAPSULE BY MOUTH FOUR TIMES A DAY 07/31 completed Not Available Not Available Not Available prednisone 10 mg tablet TAKE 2 TABLETS BY MOUTH TWICE DAILY FOR 3 DAYS THEN TAKE 1 TABLET BY MOUTH TWICE DAILY FOR 3 DAYS THEN TAKE 1 TABLET BY MOUTH EVERY DAY FOR 3 DAYS 10/26 completed Not Available Not Available Not Available loperamide 2 mg capsule 09/18 completed Not Available Not Available Not Available ibuprofen 800 mg tablet TAKE 1 TABLET BY MOUTH 1-2 HOURS PRIOR TO PROCEDURE active Not Available Not Available No t Available hydrocodone 5 mg-acetamin ophen 325 mg tablet TAKE 1 TABLET BY MOUTH 1-2 HOURS PRIOR TO PROCEDURE active Not Available Not Available No t Available ondansetron HCl 8 mg tablet TAKE 1 TABLET BY MOUTH 1-2 HOURS PRIOR TO PROCEDURE active Not Available Not Available No t Available meloxicam 15 mg tablet TAKE 1 TABLET BY MOUTH EVERY DAY WITH MEALS FOR 7 DAYS 10/26 completed Not Available Not Available Not Available phentermine 15 mg capsule TAKE 1 CAPSULE BY MOUTH DAILY 10/26 completed Not Available Not Available Not Available metronidazo le 500 mg tablet TAKE 1 TABLET BY MOUTH TWICE DAILY FOR 5 DAYS active Not Available Not Available No t Available phentermine 37.5 mg tablet TAKE 1 TABLET BY MOUTH EVERY MORNING BEFORE BREAKFAST 10/26 completed Not Available Not Available Not Available triamcinolo ne acetonide 0.1 % topical cream active Not Available Not Available Not Available amoxicillin 500 mg tablet TAKE 1 TABLET BY MOUTH THREE TIMES DAILY 09/18 completed Not Available Not Available Not Available alprazolam 0.5 mg tablet TAKE 1 TABLET BY MOUTH 1 TO 2 HOURS BEFORE PROCEDURE active Not Available Not Available No t Available propranolol 10 mg tablet TAKE 1 TABLET BY MOUTH 3 TIMES DAILY. NEEDED FOR ANXIETY 07/31 completed Not Available Not Available Not Available amoxicillin 875 mg tablet TAKE 1 TABLET BY MOUTH TWICE DAILY UNTIL ALL TAKEN 10/19 completed Not Available Not Available Not Available alprazolam 0.25 mg tablet TAKE 1 TABLET BY MOUTH TWICE DAILY NEEDED FOR ANXIETY 10/26 completed Not Available Not Available Not Available amitriptyli ne 25 mg tablet TAKE 1 TABLET BY MOUTH EVERY NIGHT 10/26 completed Not Available Not Available Not Available methocarbam ol 750 mg tablet 10/26 completed Not Available Not Available Not Available triamcinolo ne acetonide 0.1 % topical ointment APPLY A THIN LAYER TO THE AFFECTED AREA(S) BY TOPICAL ROUTE 2 TIMES PER DAY X 7 DAYS NEEDED 10/26 completed Not Available Not Available Not Available buspirone 10 mg tablet TAKE 1 TABLET BY MOUTH EVERY NIGHT 10/26 completed Not Available Not Available Not Available omeprazole 20 mg capsule,del ayed release TAKE 1 CAPSULE BY MOUTH DAILY active Not Available Not Available No t Available ergocalcife rol (vitamin D2) 1,250 mcg (50,000 unit) capsule TAKE 1 CAPSULE BY MOUTH EVERY WEEK DIRECTED 10/26 completed Not Available Not Available Not Available methylpredn isolone 4 mg tablets in a dose pack FOLLOW PACKAGE DIRECTION S 10/19 completed Not Available Not Available Not Available ondansetron 4 mg disintegrat ing tablet DISSOLVE 1 TABLET ON THE TONGUE EVERY 8 HOURS NEEDED FOR NAUSEA. SECOND LINE active Not Available Not Available No t Available doxycycline hyclate 100 mg tablet TAKE 1 TABLET BY MOUTH TWICE DAILY FOR 14 DAYS 10/26 completed Not Available Not Available Not Available escitalopra m 20 mg tablet TAKE 1 TABLET BY MOUTH EVERY DAY 07/31 completed Not Available Not Available Not Available EluRyng 0.12 mg-0.015 mg/24 hr vaginal ring INSERT 1 RING VAGINALLY EVERY 3 WEEKS FOR CONTINUOU S USE METHOD OF CONTROL 09/18 completed Not Available Not Available Not Available Vitals Date Recorded Body height Body mass index (BMI) Body weight Systolic blood pressure Diastolic blood pressure Provider Name and Address Organization Details Last Updated DateTime 03/30/2023 161.93 cm 32.9 kg/m2 28427.55 g 135 mm[Hg] 83 mm[Hg] Keke Dori [facility] 3 09:34:04 Date Recorded Body height Body mass index (BMI) Body weight Systolic blood pressure Diastolic blood pressure Provider Name and Address Organization Details Last Updated DateTime 10/27/2023 161.93 cm 34.6 kg/m2 94199.47 g 135 mm[Hg] 91 mm[Hg] Mercedes Dumont [facility] 4 10:09:08 Date Recorded Body height Body mass index (BMI) Body weight Systolic blood pressure Diastolic blood pressure Provider Name and Address Organization Details Last Updated DateTime 12/02/2023 161.93 cm 34.3 kg/m2 65412.73 g 136 mm[Hg] 88 mm[Hg] Audrey Jesus Manuel [facility] 4 09:34:39 Date Recorded Body height Body mass index (BMI) Body weight Systolic blood pressure Diastolic blood pressure Provider Name and Address Organization Details Last Updated DateTime 04/17/2024 161.93 cm 34.9 kg/m2 18244.66 g 131 mm[Hg] 93 mm[Hg] Mercedes Tim [facility] 4 09:46:12 Social History Question Answer Notes LastModified by Organizat ion Details LastModified Time Tobacco Smoking Status Never Smoker Annabelle Jason sheikh, [facility] 07/31/2021 14:19:56 What Is Your Level Of Alcohol Consumption? Occasional Information not available 07/31/2021 Are You Blind Or Do You Have Difficulty Seeing? No Information n ot available 07/31/2021 What Is Your Level Of Caffeine Consumption? Occasional Information not available 07/31/2021 In The 14 Days Before Symptom Onset, Have You Had Close Contact With A Laboratory-confirm ed COVID-19 While That Case Was Ill? No Information n ot available 10/19/2022 In The 14 Days Before Symptom Onset, Have You Had Close Contact With A Person Who Is Under Investigation For COVID-19 While That Person Was Ill? No Information not available 10/19/2022 Have You Been To An Area Known To Be High Risk For COVID-19? No Information not available 10/19/2022 Are You Deaf Or Do You Have Serious Difficulty Hearing? No Information not available 07/31/2021 What Type Of Diet Are You Following? REGULAR Information n ot available 07/31/2021 Do You Use Your Seat Belt Or Car Seat Routinely? Yes Information not available 07/31/2021 Do You Have Smoke And Carbon Monoxide Detectors In Your Home? Yes Information not available 07/31/2021 Do You Feel Stressed (tense, Restless, Nervous, Or Anxious, Or Unable To Sleep At Night)? [id number] Information not available 07/31/2021 Do You Use Any Illicit Or Recreational Drugs? No Information not available 07/31/2021 Do You Use Sunscreen Routinely? Yes Information not available 07/31/2021 Sex: Unknown Functional Status Question Answer Note LastModified by Organizat ion Details LastModified Time Do you have difficulty walking or climbing stairs? No Information not available 07/31/2021 Are you able to walk? YESWOREST Information not available 07/31/2021 Are you able to care for yourself? Yes Information not available 07/31/2021 Do you have difficulty dressing or bathing? No Information not available 07/31/2021 What is your exercise level? Occasional Information not available 07/31/2021 Mental Status None recorded. Family History Relationship Description Onset Age of this Age Resolved Age Notes LastModified by Organization Details LastModified Time Mother Hypercholest erolemia Not available 2021 14:19:10 Mother Hypertensive disorder Not available 2021 14:19:16 Maternal Grandfather Malignant tumor of lung Not available 2021 14:19:29 Medical History Condition Response Other Y Fibromyalgia Y Asthma Y Gynecological History Statement/Question Response Abnormal Pap Y Flow Light Date of LMP 10/23/2023 STIs/STDs N Colposcopy 08/21/2021 Duration of Flow (days) 5 Current Control Method Sterilizati on Sexually Active? N Menses Monthly Y Age of first menstrual cycle 14 Date of Last Pap Smear 09/20/2022 Sexual Problems? N Desired Control Method Ablation LMP Approximate Obstetrics History GPAL:G 3 P 0 0 0 3 Type Value Living 3 Total 3 Past Encounters Encounter ID Performer Location Encounter Start Date Encounter Closed Date Diagnosis/Indication Diagnosis SNOMED-CT Code Diagnosis ICD10 Code [id number] [facility] [address] [address] 07/31/2021 13:59:35 07/31/2021 14:59:15 Gynecologic examination 21318301 Z01.419 Contracept ion care management 415051626 Z30.[id number] [facility] [address],[place] [address] 08/21/2021 13:54:19 08/21/2021 14:51:06 Atypical squamous cells of undetermined significance on cervical Papanicolaou smear 911888350 R87.[id number] [facility] [address],[place] [address] 09/18/2022 10:15:23 09/20/2022 15:27:41 Gynecologic examination 19692416 Z11.51 Z11.3 Z11.8 Menorrhagia 590617926 N9 2.0 [id number] Nohemi Gomez [place] [address],[place] [address] 09/23/2022 16:27:29 09/23/2022 17:25:42 Menorrhagia 204216463 N92.0 [id number] Tomás Luo MD [place] [address],[place] [address] 09/30/2022 17:15:52 10/01/2022 14:56:09 Menorrhagia 510895526 N92.0 Female sterilization 608 33402 Z30.[id number] [facility] [address],[place] [address] 10/19/2022 17:08:37 10/21/2022 16:22:57 Screening procedure 00385401 Z13.9 Human lashaun llomavirus deoxyribonucleic acid detected, high risk on cervical specimen 350029251 R87.810 [id number] Tomás Luo MD [place] [address],[place] [address] 11/08/2022 11:16:29 11/08/2022 12:53:08 Dysplasia of cervix 36605560 N87.9 Female sterilization 608 47553 Z30.2 Menorrhagia 912697516 N9 2.0 [id number] Tomás Luo MD [place] [address],[place] [address] 11/24/2022 16:36:06 11/24/2022 17:52:44 Endometrium thickened 086430929 R93.89 Endometritis 20335023 N7 1.0 [id number] [facility] [place] [address],[place] [address] 11/29/2022 15:51:47 11/29/2022 16:36:59 Pain in pelvis 92239271 R10.2 [id number] Morenita Zuleta [facility] [address],[place] [address] 12/02/2022 17:46:21 12/03/2022 16:36:21 Postoperative visit 420622058 Z09 Contact de rmatitis caused by urushiol from [facility] 649891055 L25.[id number] [facility] [address],[place] [address] 03/30/2023 09:18:02 03/30/2023 09:53:52 Malaise and fatigue 384077912 R53.81 Pain in pelvis 79788816 R10.2 Urinary symptoms 2802780 08 R39.9 [id number] Morenita Zuleta [facility] [address],[place] [address] 10/27/2023 10:03:32 10/27/2023 10:28:30 Abnormal uterine bleeding 1045746542 9100 N93.9 [id number] [facility] [place] [address],[place] [address] 11/08/2023 10:56:23 11/08/2023 11:40:34 Pain in pelvis 34037144 R10.2 N93.9 [id number] NATY GASTELUM MD [place] [address],[place] [address] 12/02/2023 09:29:43 12/02/2023 10:16:20 Abnormal uterine bleeding 5816826516 9100 N93.9 [id number] Mercedes Dumont [place] [address] [address] 04/17/2024 09:37:17 04/17/2024 09:53:54 Vaginitis 86317873 N76.0 Health Concerns Section Related Observation LastModified by Organization Detai ls LastModified Time None Recorded Concern Status LastModified by Organization Details LastModified Time None Recorded Advance Directives Directive None Recorded Payers Encounter Date Sequence Insurance Name Policy Number Policy Leyva Covered Member ID Leyva Member ID Guarantor Name 03/30/2023 1 FORMERLY [facility] (MEDICAID HMO) [id number] Shalonda Georgesman [id number] Shalonda Montanez Mcdonough 10/27/2023 1 FORMERLY [facility] (MEDICAID HMO) [id number] Shalonda Constantino [id number] Shalonda A Constantino 11/08/2023 1 FORMERLY [facility] (MEDICAID HMO) [id number] Shalonda Constantino [id number] Shalonda Tarik Constantino 12/02/2023 1 FORMERLY [facility] (MEDICAID HMO) [id number] Shalonda Constantino [id number] Shalonda Montanez Constantino 04/17/2024 1 FORMERLY [facility] (MEDICAID HMO) [id number] Shalonda Constantino [id number] Shalonda Georgesman Notes Date Note Type Note Provider Name and Address Organization Details Recorded Time 03/30/2023 text/html Here today to discuss recurring random cramping and feeling of pelvic pressure since 11/2022 endometrial ablation. +fatigue & feeling of flu like sx's around the time menses would normally start.Neg pain of abd//flankNeg urinary sx'sNeg GI sx'sNeg N/V/F/C/DNeg Vag d/c, odor, irritation, itchingNeg AUBNeg dyspareunia. Morenita Zuleta, MOE- [address], [place], [address], [facility] 03/30/2023 09:53:32 10/27/2023 text/html Here today for AUB.Hx of endo ablation 2022.Hx of tubal ligation. Random AUB period like flow started end of last week.Pain with sexCramping on/off Neg pain of abd/pelvis/flankN eg urinary sx'sNeg GI sx'sNeg N/V/F/C/DNeg Vag d/c, odor, irritation, itching Morenita Zuleta [facility]- [address], [place], [address], [facility] 10/27/2023 10:26:39 12/02/2023 text/html Presents to discuss abnormal bleeding. Hx of endometrial ablation 1 year ago. Bled x6 weeks following procedure. Then in October, had an episode of abnormal bleeding and pain with sex. Now bleeding has stopped, however the pain is constant and aching. She denies nausea or vomiting. NATY GASTELUM MD [address], [place], [address], [facility] 12/02/2023 10:09:35 OBGyn Episode Ob Episode Information Episode Created Date Number of Fetuses Patient Bloodtype Patient rh Status Prepregnancy Weight lbs Domestic Partner Domestic Partner Phone Father Name Laundry Housekeeper Status 07/31/19 22 1 CLOSED Fetus Data First Name Last Name Admitted to NICU Weight (g) Sex Living Outcome Pediatric Complications Fetus ID Race Codes Race Delivery Type F [id number] Vaginal Delivery Usman Calculation USMAN Calculation Method Initial Usman Date Initial Exam Date Initial Exam Provider Initial Ultrasound Date Last Menstrual Period Date Ultra Sound Weeks Gestation Conception by IVF Embryo Age at Transfer Date of Transfer 0 Eighteen To Twenty Week Usman Update Ultra Sound Date Fundal Height At Umbil Quickening Date Ultra Sound Latest Weeks Gestation Final Usman Confirmed By Final Usman Confirmed Date Final Usman Date Ultra Sound Latest Days Gestation 0 0 Menstrual History Last Menstrual Date Menses Monthly On Bcp Conception Prior Menses Frequency Hcg Plus Date Menarche Onset Age Delivery Information Delivery Date Delivery Type Labor Anesthesia Weeks Gestation Incision Type Labor Labor Length Hrs Delivered By Post Complications Tubal Sterilization Discharge Date Comments 7 Discharge Information Feeding Method Contraceptive Method Maternal HG B and HCT Levels Ob Episode Information Episode Created Date Number of Fetuses Patient Bloodtype Patient rh Status Prepregnancy Weight lbs Domestic Partner Domestic Partner Phone Father Name Laundry Housekeeper Status 07/31/19 22 1 CLOSED Fetus Data First Name Last Name Admitted to NICU Weight (g) Sex Living Outcome Pediatric Complications Fetus ID Race Codes Race Delivery Type M [id number] Vaginal Delivery Usman Calculation USMAN Calculation Method Initial Usman Date Initial Exam Date Initial Exam Provider Initial Ultrasound Date Last Menstrual Period Date Ultra Sound Weeks Gestation Conception by IVF Embryo Age at Transfer Date of Transfer 0 Eighteen To Twenty Week Usman Update Ultra Sound Date Fundal Height At Umbil Quickening Date Ultra Sound Latest Weeks Gestation Final Usman Confirmed By Final Usman Confirmed Date Final Usman Date Ultra Sound Latest Days Gestation 0 0 Menstrual History Last Menstrual Date Menses Monthly On Bcp Conception Prior Menses Frequency Hcg Plus Date Menarche Onset Age Delivery Information Delivery Date Delivery Type Labor Anesthesia Weeks Gestation Incision Type Labor Labor Length Hrs Delivered By Post Complications Tubal Sterilization Discharge Date Comments 4 Discharge Information Feeding Method Contraceptive Method Maternal HG B and HCT Levels Ob Episode Information Episode Created Date Number of Fetuses Patient Bloodtype Patient rh Status Prepregnancy Weight lbs Domestic Partner Domestic Partner Phone Father Name Laundry Housekeeper Status 07/31/19 22 1 CLOSED Fetus Data First Name Last Name Admitted to NICU Weight (g) Sex Living Outcome Pediatric Complications Fetus ID Race Codes Race Delivery Type F [id number] Vaginal Delivery Usman Calculation USMAN Calculation Method Initial Usman Date Initial Exam Date Initial Exam Provider Initial Ultrasound Date Last Menstrual Period Date Ultra Sound Weeks Gestation Conception by IVF Embryo Age at Transfer Date of Transfer 0 Eighteen To Twenty Week Usman Update Ultra Sound Date Fundal Height At Umbil Quickening Date Ultra Sound Latest Weeks Gestation Final Usman Confirmed By Final Usman Confirmed Date Final Usman Date Ultra Sound Latest Days Gestation 0 0 Menstrual History Last Menstrual Date Menses Monthly On Bcp Conception Prior Menses Frequency Hcg Plus Date Menarche Onset Age Delivery Information Delivery Date Delivery Type Labor Anesthesia Weeks Gestation Incision Type Labor Labor Length Hrs Delivered By Post Complications Tubal Sterilization Discharge Date Comments 7 Discharge Information Feeding Method Contraceptive Method Maternal HG B and HCT Levels
--- OUTSIDE RECORDS SUMMARY | 2024-06-09 07:51 | XMS_ITS | Encounter Summary ---
Author Organization [facility] Address [address] [place] [address] Phone Care Team Providers Care Gambling Monitor Name Role Phone Adam Alejo DO Unavailable [phone] Johnna Valente DELI ASSOCIATE, SEAT JOINER CHAINSTITCH Unavailable Marisela Chaidez DELI ASSOCIATE, SEAT JOINER CHAINSTITCH Unavailable Johnathan Pugh MD Unavailable [phone] Gwen Calero PAC Primary Care Pro vider Encounter Details Date Type Department Care Team (Late st Contact Info) Description 05/28/2024 Results Follow-Up [facility] - Internal Medicine - [place] [address] [place] [address] Gwen Calero, [facility] [address] [place] [address] Social History Tobacco Use Types Packs/Day Years Used Date Smoking Tobacco: Former Cigarettes Q uit: 05/08/2016 Passive Smoke Exposure: Past Smokeless Tobacco: Never Comments:occasional smoker Alcohol Use Standard Drinks/Week Comments Yes 6 (1 standard drink = 0.6 oz pure alcohol) drinks three bottles of wine a week [facility] Utilities Answer Date Recorded In the past 12 months has [employer], gas, oil, or water [employer] threatened to shut off services in your [...] How often do you attend chur or jehovah's witness services? More than 4 times per year 11/08/2023 Do you belong to any clubs o r organizations such as muslim groups, unions, fraternal or athletic groups, or [...] Total Score - Questions 1-9 12 01/05 [facility] ional [facility] - Occupational Stress Questionnaire Answer Date [...] place to sleep or slept in a intermediate (including now)? Patient declined 11/08/2023 Education Answer [...] st Contact Info) Description 06/19/2024 8:00 AM CUSTOMER CARE ASSISTANT Appointment [facility] [address] [place] [address] Gwen Calero, PAC [address] [place] [address] Discharge Disposition: Discharged to home or Selfcare 06/19/2024 9:00 AM CUSTOMER CARE ASSISTANT [facility]ointment [facility] [address] [place] [address] Gwen Calero, PAC [address] [place] [address] Discharge Disposition: Discharged to home or Selfcare 08/13/2024 9:00 AM CDT Office Visit [facility] - Internal Medicine - [place] [address] [place] [address] Gwen Calero, PAC [address] [place] [place] [address] documented as of this encounter Goals Goal [...] Noted Time PHQ-9 Depression Total Score: 12 01/27/ 022 1:00 PM CDT documented as of this encounter Care Teams Gambling Monitor Relationship Specialty Start Date End Date Gwen Calero, PAC [address] [place] [address] PCP - General Physician Outcomes Specialist 06/12/21 Adam Alejo DO Gastroenterology 01/07/16 Johnna Valente, DELI ASSOCIATE, SEAT JOINER CHAINSTITCH Nurse Practitioner Advanced Practice Nurse 01/07/16 Marisela Chaidez APRN, SEAT JOINER CHAINSTITCH Nurse Practitioner Advanced Practice Nurse 01/07/16 Johnathan Pugh MD [address] [place] [id number] Obstetrics & Gynecology 08/13/19 documented as of this encounter
--- OUTSIDE RECORDS SUMMARY | 2024-06-09 07:51 | XMS_ITS | Encounter Summary ---
Author Organization [facility] Address [address] [place] [address] Phone Care Team Providers Care Civil Engineering Project Manager Name Role Phone Adam Alejo DO Unavailable [phone] Johnna Valente BUSINESS ATTORNEY, UPKEEP WORKER Unavailable Marisela Chaidez BUSINESS ATTORNEY, UPKEEP WORKER Unavailable Johnathan Pugh MD Unavailable [phone] Gwen Calero PAC Primary Care Pro vider Reason for Referral * Radiology Services (Routine) - Closed Specialty Diagnoses / Procedures Referred By Kavon lackey Referred To Contact Radiology Diagnoses Enlarged lymph node Procedures US RIGHT EXTREMITY NON-VASC LTD US SOFT TISSUE UNLISTED PROCEDURE Gwen Calero, PAC [address] [place] [address] Phone: tel: fax: Referral ID Status Reason Start Date Expiration Date Visits Re quested Visits Authorized [id number] Closed 05/07/2024 1 1 A POWDER MIXER OPERATOR * Radiology Services (Routine) - Authorized Specialty Diagnoses / Procedures Referred By Kavon lackey Referred To Contact Radiology Diagnoses Enlarged lymph node Screening mammogram for breast cancer Procedures KIRSTEN DIAG BILATERAL DIGITAL W CAD W RACHELL Gwen Calero, PAC [address] [place] [address] Phone: tel: fax: Referral ID Status Reason Start Date Expiration Date V isits Requested Visits Authorized [id number] Authorized 05/07/2024 1 1 A POWDER MIXER OPERATOR Reason for Visit * Reason Comments Breast Problem Has a sore on breast Animal Bite Right leg 2 weeks ag o Encounter Details Date Type Department Care Team (Late st Contact Info) Description 05/07/2024 9:15 AM COCOA POWDER MIXER OPERATOR [facility] - Internal Medicine - [place] [address] [place] [address] Gwen Calero PAC [address] [place] [address] Boil (Primary Dx); Enlarged lymph node; Screening [...] drinks three bottles of wine a week [facility] [employer] Answer Date Recorded In the past 12 months has [employer], gas, oil, or water [employer] threatened to shut off services in your [...] often do you attend chur ch or scientologist services? More than 4 times per year 11/08/2023 Do you belong to any clubs o r organizations such as episcopal groups, unions, fraternal or athletic groups, or [...] Total Score - Questions 1-9 12 01/05 [facility] of Occupat ional [facility] - Occupational Stress Questionnaire Answer Date Recorded [...] place to sleep or slept in a halfway (including now)? Patient declined 11/08/2023 Education Answer [...] on file documented as of this encounter Last Filed Vital Signs Vital Sign Reading Time Taken Comments Blood Pressure 120/86 05/07/2024 9:23 AM COCOA POWDER MIXER OPERATOR Pulse 78 05/07/2024 9:23 AM COCOA POWDER MIXER OPERATOR Temperature 36.4 ??C (97.6 ??F) 05/07/2024 9:23 AM CS T Respiratory Rate 12 05/07/2024 9:23 AM COCOA POWDER MIXER OPERATOR Oxygen Saturation 99% 05/07/2024 9:23 AM COCOA POWDER MIXER OPERATOR Inhaled Oxygen Concentration - - Weight 93.4 kg (206 lb) 05/07/2024 9:23 AM COCOA POWDER MIXER OPERATOR Height - - Body Mass Index 36.49 11/08/2023 8:27 AM CDT documented in this encounter Progress Notes * Estrella Swann, A - 05/07/2024 9:15 AM CST Shalonda Constantino, 38 y.o., female is here for Breast Problem (Has a sore on breast) and Animal Bite (Right leg 2 weeks ago ) Medication Refills: Patient reports/denies need for medication refills. Orders Pended: no Requested Prescriptions No prescriptions requested or ordered in this encounter Home Medications Medication Sig Start Date End Date Taking? Authorizing Provider ALPRAZolam (XANAX) 0.25 MG Tablet TAKE 1 TABLET BY MOUTH TWICE DAILY NEEDED FOR ANXIETY Patient not taking: Reported on 05/07/2024 03/30/24 Gwen Calero, CECY amitriptyline (ELAVIL) 25 MG Tablet Take 1 Tablet by mouth nightly. Patient not taking: Reported on 05/07/2024 06/10/23 Gwen Calero PAC busPIRone (BUSPAR) 10 MG Tablet Take 1 Tablet by mouth nightly. 03/26/22 Yes Gwen Calero PAC omeprazole (PriLOSEC) 20 MG CAPSULE DELAYED RELEASE Take 1 Capsule by mouth daily. 11/08/23 Yes Gwen Calero PAC ondansetron (ZOFRAN-ODT) 4 MG TABLET DISPERSIBLE Take 1 Tablet by mouth every 8 hours as needed forNausea - 2nd line. Patient not taking: Reported on 05/07/2024 11/18/23 Gwen Calero PAC There are no discontinued medications. I have reviewed the home medication list with the patient and have reconciled discrepancies. The list is accurate to the best of my knowledge. Smoking Status: Social History Tobacco Use Smoking status: Former Current packs/day: 0.00 Types: Cigarettes Quit date: 05/08/2016 Years since quittin.0 Passive exposure: Past Smokeless tobacco: Never Tobacco comments: occasional smoker Vaping Use Vaping status: Never Used Substance Use Topics Alcohol use: Yes Alcohol/week: 3.6 oz Types: 6 Glasses of wine per week Comment: drinks three bottles of wine a week Drug use: No Smoking Cessation Counseling Given: no Health Care Maintenance: Health Maintenance Due Topic Date Due Hepatitis C Virus (HCV) Screening Never done Hepatitis B Immunization (1 of 3 - 19+ 3-dose series) Never done Cervical Cancer Screening (CCS) Never done Influenza Immunization (1) 02/05/2024 SARS-COV-2 Immunization ( season) Never done Orders Pended: no The following BPA's have been addressed with the patient today: BMI A POWDER MIXER OPERATOR * Gwen Calero PAC - 05/07/2024 9:15 AM CST Chief Complaint: Chief Complaint Patient presents with Breast Problem Has a sore on breast Animal Bite Right leg 2 weeks ago Assessment/Plan: Diagnoses and all orders for this visit: Boil Enlarged lymph node - KIRSTEN DIAG BILATERAL DIGITAL W CAD W RACHELL; Future - US SOFT TISSUE UNLISTED PROCEDURE; Future Screening mammogram for breast cancer - KIRSTEN DIAG BILATERAL DIGITAL W CAD W RACHELL; Future Dog bite, initial encounter Hematoma Other orders - amoxicillin-clavulanate (AUGMENTIN) 875-125 MG Tablet; Take 1 Tablet by mouth 2 times daily for 10 days. Dog bite on back calf R lower leg is improved Does not look infected Bruising is resolving NNO Boil R lateral breast Rx ABT Monitor Enlarged nodes R axialla Acutely due to boil Non acutely termite exterminator Has had mammograms Advised updated mammogram Check u/s soft tissue R axialla F/u PRN if sx do not resolve Subjective: Ms. Shalonda Constantino is a 38 y.o. female here today for above. Dog bite R calf Healing Is aware of who owns the dog; domesticated No acute concerns with this Boil R lateral breast Infected area present Sx for a few weeks No fevver Enlarged lymph node R axilla This is not a new concern Has had mammogram in past No other c/o No fever ROS: Review of Systems Skin: Boil R lateral breast Bruising and healing dog bite morales posterior calf; R VITAL SIGNS: BP Readings from Last 3 Encounters: 05/07/24 120/86 12/07/23 112/84 11/08/23 100/72 Wt Readings from Last 3 Encounters: 05/07/24 206 lb (93.4 kg) 12/07/23 195 lb (88.5 kg) 11/08/23 200 lb (90.7 kg) Vitals: 05/07/24 0923 BP: 120/86 BP Location: Left Arm BP Position: Sitting BP Cuff Size: Regular Pulse: 78 Resp: 12 Temp: 97.6 ??F (36.4 ??C) TempSrc: Temporal SpO2: 99% Weight: 206 lb (93.4 kg) Body mass index is 36.49 kg/m??. PHYSICAL EXAM: Physical Exam Vitals reviewed. Constitutional: Appearance: Normal appearance. HENT: Head: Normocephalic and atraumatic. Skin: Comments: Round boil; nickel size R lateral breast No active discharge Tenderness R calf 4 punctures from dog bite Healed over No redness Bruising resolving Neurological: General: No focal deficit present. Mental Status: She is alert. Psychiatric: Mood and Affect: Mood normal. Labs/Studies Reviewed: Lab Results Component Value Date WBC 7.06 08/10/2020 HEMOGLOBIN 14.1 08/10/2020 PLATELETCNT 281 08/10/2020 MCV 88.8 08/10/2020 Lab Results Component Value Date SODIUM 137 08/10/2020 POTASSIUM 4.3 08/10/2020 CHLORIDE 106 08/10/2020 CO2VEN 21 (L) 08/10/2020 ANIONGAP 14.3 08/10/2020 GLUCOSE 99 08/10/2020 BUN 10 08/10/2020 CREATININE 0.83 08/10/2020 BCRATIO8 12 08/10/2020 TOTALPROTEIN 7.0 08/10/2020 ALBUMIN 4.2 08/10/2020 CALCIUM 9.1 08/10/2020 TBIL 0.3 08/10/2020 SGOTAST 15 08/10/2020 SGPTALT 15 08/10/2020 ALKALINEPHO 47 08/10/2020 GFRNA >60 08/10/2020 GFRA >60 08/10/2020 Lab Results Component Value Date TSH 1.750 08/10/2020 Lab Results Component Value Date HGBA1C 5.0 06/03/2022 Lab Results Component Value Date CHOLESTEROL 136 08/10/2020 TRIGLYCRIDES 206 (H) 08/10/2020 HDLCHOLESTE 28.0 (L) 08/10/2020 LDL 67 06/03/2022 No results found for: PSASCREEN , PSA , PSAFREE , PSAPCNTFREE , PSATOTAL @MAMMOFINDINGS@ No results found. Recent Procedure Details No resulted procedures found. FOLLOWUP: Follow-up Information Return for worsening symptoms or if symptoms fail to improve. LOS Today OFFICE/OP EST LVL 3 LOW MDM/20-29 MIN Past medical, surgical, social and family history has been reviewed and updated as necessary. Medications and allergies has been reviewed and updated. I discussed all new medications and potential side effects or risks associated with them. Patient is to contact our office with any concerns. Patient instructions and educational materials were given to the patient. Patient (or patient airline security representative) demonstrates verbal understanding of instructions given. Patient should follow up with their PCP for general health maintenance needs. Patient should contact our office if their problems persist or call 911/go the to ER if issues become more persistent. If any referrals have been made, patient should contact our office with in 3-5 days if they have not heard anything from our referral team or the referring physician. A POWDER MIXER OPERATOR documented in this encounter Plan of Treatment Upcoming Encounters Date Type Department Care Team (Late st Contact Info) Description 06/19/2024 8:00 AM COCOA POWDER MIXER OPERATOR [facility] [address] [place] [address] Gwen Calero, PAC [address] [place] [address] Discharge Disposition: Discharged to home or Selfcare 06/19/2024 9:00 AM COCOA POWDER MIXER OPERATOR [facility] Ul[facility] [address] [place] [address] Gwen Calero, PAC [address] [place] [address] Discharge Disposition: Discharged to home or Selfcare 08/13/2024 9:00 AM CDT [facility] - [place] [address] [place] [phone] Gwen Calero, PAC [address] [place] [address] Scheduled Orders Name Type Priority Associated Diagnoses Orde r Schedule KIRSTEN DIAG BILATERAL DIGITAL W CAD W RACHELL Imaging Routine Enlarged lymph node Screening mammogram for breast cancer Expected: 05/07/2024, Expires: 09/05/2024 documented as of this encounter Goals Goal [...] Ready to change Department associated with goal: [facility] Steps to achieve goal: [...] 6 sessions documented as of this encounter Results * US RIGHT EXTREMITY NON-VASC LTD (05/19/2024 10:14 AM COCOA POWDER MIXER OPERATOR) Anatomical Region Laterality Modality BODY Right Ultrasound 05/25/2024 2:41 PM COCOA POWDER MIXER OPERATOR Impressions 05/25/2024 2:43 PM COCOA POWDER MIXER OPERATOR IMPRESSION: Unremarkable lymph nodes with a very thin cortex, similar to the previous ultrasound. Narrative 05/25/2024 2:43 PM COCOA POWDER MIXER OPERATOR EXAM DESCRIPTION: ?? US RIGHT EXTREMITY NON-VASC LTD REASON FOR STUDY: ?? RIGHT axillary lymph node ?? TECHNIQUE: A Dynamic assessment was performed of the ??right axilla ?? by the arboriculture teacher, with selected grayscale and color Doppler images [...] PM T: ??05/25/2024 2:41 PM Report ID: [id number] Reading Location: ??[id number] Procedure Note Joaquim Madrid MD - 05/25/2024 EXAM DESCRIPTION: US RIGHT EXTREMITY NON-VASC LTD REASON FOR STUDY: RIGHT axillary lymph node TECHNIQUE: A Dynamic assessment was performed of the right axilla by the arboriculture teacher, with selected grayscale and color Doppler images acquired and recorded in PACS. COMPARISON: 05/26/2020 FINDINGS: SKIN AND SUBCUTANEOUS TISSUES: Several lymph nodes with a very thin cortex are similar to the previous ultrasound. OTHER: No other significant finding. THIS IS AN ELECTRONICALLY VERIFIED FINAL REPORT 05/25/2024 2:41 PM - Electronically signed by Lorne Madrid M.D. RONNELL: RONNELL Report ID: [id number] Reading Location: [id number] IMPRESSION: Unremarkable lymph nodes with a very thin cortex, similar to the previous ultrasound. us Gwen Calero PAC IMG US ORDERABLES Final Result documented in this encounter Visit Diagnoses Diagnosis Boil- Primary Carbuncle and furuncle of unspecified site Enlarged lymph node Enlargement of lymph nodes Screening mammogram for breast cancer Dog bite, initial encounter Hematoma Contusion of unspecified site Enlarged lymph node Enlargement of lymph nodes documented in this encounter Additional Health Concerns Assessment Noted Time PHQ-9 Depression Total Score: 022 1:00 PM CDT documented as of this encounter Care Teams Civil Engineering Project Manager Relationship Specialty Start Date End Date Gwen Calero, MER[facility]ED WITH [facility] [address] [place] [address] PCP - General Physician Program Support Clerk 06/12/21 Adam Alejo DO Gastroenterology 01/07/16 Johnna Valente APRN, UPKEEP WORKER Nurse Practitioner Advanced Practice Nurse 01/07/16 Marisela Chaidez APRN, UPKEEP WORKER Nurse Practitioner Advanced Practice Nurse 01/07/16 Johnathan Pugh MD [address] [place] [address] Obstetrics & Gynecology 08/13/19 documented as of this encounter
--- OUTSIDE RECORDS SUMMARY | 2024-06-09 07:52 | XMS_ITS | Encounter Summary ---
Author Organization [employer] Care Team Providers Care Metal Dresser Name Role Phone Adam Alejo DO Unavailable [phone] Johnna Valente TEAM PHYSICIAN, CABLE TELEVISION PROGRAM DIRECTOR Unavailable [phone] Marisela Chaidez TEAM PHYSICIAN, CABLE TELEVISION PROGRAM DIRECTOR Unavailable Johnathan Pugh MD Unavailable [phone] Gwen Calreo PAC Primary Care Pro vider Encounter Details Date Type Department Care Team (Latest Contact Info) Description 12/07/2023 Travel Social History Tobacco Use Types Packs/Day Years Used Date Smoking Tobacco: Former Cigarettes Q uit: 05/08/2016 Passive Smoke Exposure: Past Smokeless Tobacco: Never Comments:occasional smoker Alcohol Use Standard Drinks/Week Comments Yes 6 (1 standard drink = 0.6 oz pure alcohol) drinks three bottles of wine a week [facility] Utilities Answer Date Recorded In the past 12 months has [employer], [employer], oil, or water [employer] threatened to shut off services in your [...] How often do you attend chur or buddhism services? More than 4 times per year 11/08/2023 Do you belong to any clubs o r organizations such as mandaen groups, unions, fraternal or athletic groups, or [...] Total Score - Questions 1-9 12 01/05 [facility] of Occupat ional [facility] - Occupational Stress Questionnaire Answer Date [...] place to sleep or slept in a [place] health care facility (including now)? Patient declined 11/08/2023 Education Answer [...] st Contact Info) Description 06/19/2024 8:00 AM CHOCOLATE FINISHER [facility] [address] [place] [address] Gwen Calero, PAC [address] [place] [address] Discharge Disposition: Discharged to home or Selfcare 06/19/2024 9:00 AM CHOCOLATE FINISHER [facility] [address] [place] [address] Gwen Calero, PAC [address] [place] [address] Discharge Disposition: Discharged to home or Selfcare 08/13/2024 9:00 AM CDT [facility] - [place] [address] [place] [id number] Gwen Calero, PAC [address] [place] [address] documented as of this encounter Goals Goal [...] Ready to change Department associated with goal: [facility] Steps to achieve [...] documented as of this encounter Care Teams Metal Dresser Relationship Specialty Start Date End Date Gwen Calero PAC [address] [place] [address] PCP - General Physician Recreation Instructor 06/12/21 Adam Alejo DO Gastroenterology 01/07/16 Johnna Valente APRN, CABLE TELEVISION PROGRAM DIRECTOR Nurse Practitioner Advanced Practice Nurse 01/07/16 Marisela Chaidez APRN, CABLE TELEVISION PROGRAM DIRECTOR Nurse Practitioner Advanced Practice Nurse 01/07/16 Johnathan Pugh MD [address] [place] [address] Obstetrics & Gynecology 08/13/19 documented as of this encounter
--- OUTSIDE RECORDS SUMMARY | 2024-06-09 07:52 | XMS_ITS | Encounter Summary ---
Author Organization [facility] Address [address] [place] [address] Phone Care Team Providers Care Quality Systems Engineer Name Role Phone Adam Alejo DO Unavailable [phone] Johnna Valente MACHINE CLOTHING MAN, MASTER MOTORCYCLE TECHNICIAN Unavailable [phone] Marisela Chaidez MACHINE CLOTHING MAN, MASTER MOTORCYCLE TECHNICIAN Unavailable Johnathan Pugh MD Unavailable [phone] Gwen Calero PAC Primary Care Pro vider Reason for Visit * Reason Comments Medication Refill Encounter Details Date Type Department Care Team (Late st Contact Info) Description 08/02/2022 Refill [facility] - Internal Medicine - [place] [address] [place] [phone] Gwen Calero, PAC [address] [facility] [place] [address] Medication Refill Social History Tobacco Use Types Packs/Day Years Used Date Smoking Tobacco: Former Cigarettes Q uit: 05/08/2016 Smokeless Tobacco: Never Comments:occasional smoker Alcohol Use Standard Drinks/Week Comments Yes 6 (1 standard drink = 0.6 oz pure alcohol) drinks three bottles of wine a week PHQ-2 Answer Date Recorded Total Score - Questions 1-9 12 01/05 Education Answer Date Recorded What is the [...] Telephone Encounter - Radha Johnson RN - 08/03/2022 10:17 AM CST Medication failed the protocol, provider to review and approve the medication order if appropriate. Requested Prescriptions Pending Prescriptions Disp Refills ALPRAZolam (XANAX) 0.25 MG Tablet [Pharmacy Med Name: ALPRAZOLAM 0.25MG TABLETS] 30 Tablet 0 Sig: TAKE 1 TABLET BY MOUTH TWICE DAILY NEEDED FOR ANXIETY Not Delegated - Benzodiazepines Protocol Failed - 08/02/2022 7:04 PM Failed - This refill cannot be delegated Passed - Visit with relevant provider in past 12 months or upcoming 90 days Recent Visits Date Type Provider Dept 06/18/22 Office Visit Gwen Calero PAC [facility] 03/26/22 Office Visit Gwen Calero, PAC [facility] [place] 01/27/22 Office Visit Gwen Calero, PAC [facility] [place] Showing recent visits within past 365 days and meeting all other requirements Future Appointments Date Type Provider Dept 09/17/22 Appointment Gwen Calero PAC [facility] [place] Showing future appointments within next 90 days and meeting all other requirements ECTOR PRECISION ASSEMBLY documented in this encounter Plan of Treatment Upcoming Encounters Date Type Department Care Team (Late st Contact Info) Description 06/19/2024 8:00 AM INSPECTOR PRECISION ASSEMBLY [facility] 1 [facility] [place] [address] Gwen Calero, PAC [address] [place] [address] Discharge Disposition: Discharged to home or Selfcare 06/19/2024 9:00 AM INSPECTOR PRECISION ASSEMBLY Appointment [facility] Ultrasound [address] [place] [address] Gwen Calero, CECY [address] [place] [address] Discharge Disposition: Discharged to home or Selfcare 08/13/2024 9:00 AM CDT Office Visit [facility] - Internal Medicine - [place] [address] [place] [phone] Gwen Calero, PAC [address] [place] [address] documented as of this encounter Goals Goal [...] Ready to change Department associated with goal: [facility] Steps to achieve [...] documented as of this encounter Care Teams Quality Systems Engineer Relationship Specialty Start Date End Date Gwen Calero, CECY [address] [place] [address] PCP - General Physician Dispensary Technician 06/12/21 Adam Alejo DO Gastroenterology 01/07/16 Johnna Valente APRN, MASTER MOTORCYCLE TECHNICIAN Nurse Practitioner Advanced Practice Nurse 01/07/16 Marisela Chaidez, MICHAEL, MASTER MOTORCYCLE TECHNICIAN Nurse Practitioner Advanced Practice Nurse 01/07/16 Johnathan Pugh MD [address] [place] [address] Obstetrics & Gynecology 08/13/19 documented as of this encounter
--- OUTSIDE RECORDS SUMMARY | 2024-06-09 07:52 | XMS_ITS | Encounter Summary ---
Author Organization [employer] Care Team Providers Care Operations Assistant Name Role Phone Adam Alejo DO Unavailable [phone] Johnna Valenet LOCK OPERATOR, OPERATING ROOM ASSISTANT Unavailable [phone] Marsiela Chaidez LOCK OPERATOR, OPERATING ROOM ASSISTANT Unavailable Johnathan Pugh MD Unavailable [phone] Gwen Calero PAC Primary Care Pro vider Encounter Details Date Type Department Care Team (Latest Contact Info) Description 09/23/2022 Travel Social History Tobacco Use Types Packs/Day [...] on file Sexual Orientation Not on file COVID-19 Exposure Response Date Recorded In the last 10 days, have yo u been in contact with someone who was confirmed or suspected to have Coronavirus/COVID-19? No / Unsure 09/23/2022 9:14 AM CDT documented as of this encounter Plan of Treatment Upcoming Encounters Date Type Department Care Team (Late st Contact Info) Description 06/19/2024 8:00 AM COMPUTING SERVICES DIRECTOR Appointment [facility] Mammography [address] [place] [address] Gwen Calero, PAC [address] [place] [address] Discharge Disposition: Discharged to home or Selfcare 06/19/2024 9:00 AM COMPUTING SERVICES DIRECTOR Appointment [facility] Ultrasound [address] [place] [address] Gwen Calero, PAC [address] [place] [address] Discharge Disposition: Discharged to home or Selfcare 08/13/2024 9:00 AM CDT Office Visit [facility] - Internal Medicine - [place] [address] [place] [phone] Gwen Calero, PAC [address] [place] [address] documented as of this encounter Goals Goal [...] Ready to change Department associated with goal: [facility] Steps to achieve goal: [...] documented as of this encounter Care Teams Operations Assistant Relationship Specialty Start Date End Date Gwen Calero, CECY [address] [place] [address] PCP - General Physician Payroll Tax Specialist 06/12/21 Adam Alejo DO Gastroenterology 01/07/16 Johnna Valente APRN, OPERATING ROOM ASSISTANT Nurse Practitioner Advanced Practice Nurse 01/07/16 Marisela Chaidez, LOCK OPERATOR, OPERATING ROOM ASSISTANT Nurse Practitioner Advanced Practice Nurse 01/07/16 Johnathan Pugh MD [address] [place] [address] Obstetrics & Gynecology 08/13/19 documented as of this encounter
--- OUTSIDE RECORDS SUMMARY | 2024-06-09 07:52 | XMS_ITS | Encounter Summary ---
Author Organization [facility] Address [address] [place] [address] Phone Care Team Providers Care Facilities Custodian Name Role Phone Adam Alejo DO Unavailable [phone] Johnna Valente LIMEROCK TOWER LOADER, PRORATE CLERK Unavailable Marisela Chaidez LIMEROCK TOWER LOADER, PRORATE CLERK Unavailable Johnathan Pugh MD Unavailable [phone] Gwen Calero PAC Primary Care Pro vider Encounter Details Date Type Department Care Team (Late st Contact Info) Description 09/27/2022 Telephone [facility] - [place] [address] [place] [address] Gwen Calero, [facility] [address] [place] [address] Social History Tobacco Use Types [...] AM CDT documented as of this encounter Miscellaneous Notes * Telephone Encounter - Gwen Calero PAC - 09/28/2022 8:27 AM CDT I will increase this but it will only be Rx for 3 months She will need to come in 6 weeks for weight check and vitals; make OV * Telephone Encounter - Meena Fontenot - 09/27/2022 9:23 AM CDT New script with increased dosage Medication - Phentermine Phone - [phone] Pharmacy - [facility] would like Gwen to increase the dosage of this medication from 15 mg to 37.5 mg tablets. documented in this encounter Plan of Treatment Upcoming Encounters Date Type Department Care Team (Late st Contact Info) Description 06/19/2024 8:00 AM PHYSICS PROFESSOR [facility]ment [facility] [address] [place] [address] Gwen Calero, PAC [address] [place] [address] Discharge Disposition: Discharged to home or Selfcare 06/19/2024 9:00 AM PHYSICS PROFESSOR [facility]ment [facility] [address] [place] [address] Gwen Calero, CECY [address] [place] [address] Discharge Disposition: Discharged to home or Selfcare 08/13/2024 9:00 AM CDT Office Visit [facility] - Internal Medicine - [place] [address] [place] [phone] Gwen Calero, CECY [address] [place] [address] documented as of this encounter Goals Goal [...] Ready to change Department associated with goal: [facility] Steps to achieve goal: [...] as of this encounter Visit Diagnoses Diagnosis Obesity, unspecified classification, unspecified obesity type, unspecified whether serious comorbidity present- Primary documented in this encounter Additional Health Concerns Assessment Noted Time PHQ-9 Depression Total Score: 12 01/27/2 022 1:00 PM CDT documented as of this encounter Care Teams Facilities Custodian Relationship Specialty Start Date End Date Gwen Calero, CECY [address] [place] [address] PCP - General Physician Manager Intern 06/12/21 Adam Alejo DO Gastroenterology 01/07/16 Johnna Valente APRN, PRORATE CLERK Nurse Practitioner Advanced Practice Nurse 01/07/16 Marisela Chaidez APRN, PRORATE CLERK Nurse Practitioner Advanced Practice Nurse 01/07/16 Johnathan Pugh MD [address] [place] [address] Obstetrics & Gynecology 08/13/19 documented as of this encounter
--- OUTSIDE RECORDS SUMMARY | 2024-06-09 07:52 | XMS_ITS | Encounter Summary ---
Author Organization [facility] Address [address] [place] [address] Phone Care Team Providers Care Hazardous Waste Technician Name Role Phone Adam Alejo DO Unavailable [phone] Johnna Valente SALES CONTRACT ADMINISTRATOR, [employer] Unavailable Marisela Chaidez SALES CONTRACT ADMINISTRATOR, [employer] Unavailable Johnathan Pugh MD Unavailable [phone] Gwen Calero PAC Primary Care Pro vider Reason for Visit * Reason Comments Medication Refill Encounter Details Date Type Department Care Team (Late st Contact Info) Description 05/22/2023 Refill [facility] - Internal Medicine - [place] [address] [place] [phone] Gwen Calero, PAC [address] [facility] [place] [address] Medication Refill Social History Tobacco Use Types [...] Telephone Encounter - Gwen Calero PAC - 05/25/2023 3:42 PM CST Will give 2 weeks of med Needs OV for beginning of Jun NICAL MAINTENANCE TECHNICIAN * Telephone Encounter - Radha Johnson RN - 05/23/2023 8:39 AM CST Medication failed the protocol, provider to review and approve the medication order if appropriate. Requested Prescriptions Pending Prescriptions Disp Refills ALPRAZolam (XANAX) 0.25 MG Tablet [Pharmacy Med Name: ALPRAZOLAM 0.25MG TABLETS] 30 Tablet 0 Sig: TAKE 1 TABLET BY MOUTH TWICE DAILY NEEDED FOR ANXIETY Not Delegated - Benzodiazepines Protocol Failed - 05/22/2023 12:37 PM Failed - This refill cannot be delegated Passed - Visit with relevant provider in past 12 months or upcoming 90 days Recent Visits Date Type Provider Dept 09/23/22 Office Visit Gwen Calero PAC [facility] [place] 06/18/22 Office Visit Gwen Calero PAC [facility] Showing recent visits within past 365 days and meeting all other requirements Future Appointments No visits were found meeting these conditions. Showing future appointments within next 90 days and meeting all other requirements NICAL MAINTENANCE TECHNICIAN documented in this encounter Plan of Treatment Upcoming Encounters Date Type Department Care Team (Late st Contact Info) Description 06/19/2024 8:00 AM TECHNICAL MAINTENANCE TECHNICIAN [facility]ment [facility] 1 [place] [address] Gwen Calero PAC [address] [facility] [place] [address] Discharge Disposition: Discharged to home or Selfcare 06/19/2024 9:00 AM TECHNICAL MAINTENANCE TECHNICIAN Appointment [facility] Ultrasound [address] [place] [address] Gwen Calero, PAC [address] [place] [address] Discharge Disposition: Discharged to home or Selfcare 08/13/2024 9:00 AM CDT [facility] - Internal Medicine - [place] [address] [place] [phone] Gwen Calero, PAC [address] [place] [address] documented as of this encounter Goals Goal [...] documented as of this encounter Care Teams Hazardous Waste Technician Relationship Specialty Start Date End Date Gwen Calero, CECY [address] [place] [address] PCP - General Physician Atmospheric Technician 06/12/21 Adam Alejo DO Gastroenterology 01/07/16 Johnna Valente APRN, [employer] Nurse Practitioner Advanced Practice Nurse 01/07/16 Marisela Chaidez, MICHAEL, [employer] Nurse Practitioner Advanced Practice Nurse 01/07/16 Johnathan Pugh MD [address] [place] [address] Obstetrics & Gynecology 08/13/19 documented as of this encounter
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
--- OUTSIDE RECORDS SUMMARY | 2024-06-09 07:52 | XMS_ITS | Encounter Summary ---
Author Organization [facility] Address [address] [place] [address] Phone Care Team Providers Care Marketing Account Manager Name Role Phone Adam Alejo DO Unavailable [phone] Johnna Valente CARDING MACHINE FEEDER, HAWK MISSILE SYSTEM CREWMEMBER Unavailable Marisela Chaidez CARDING MACHINE FEEDER, HAWK MISSILE SYSTEM CREWMEMBER Unavailable Johnathan Pugh MD Unavailable [phone] Gwen Calero PAC Primary Care Pro vider Encounter Details Date Type Department Care Team (Late st Contact Info) Description 09/23/2022 Telephone [facility] - [place] [address] [place] [address] Gwen Calero, [facility] [address] [place] [address] Social History Tobacco Use Types [...] Telephone Encounter - Gwen Calero PAC - 09/23/2022 9:56 AM CDT error documented in this encounter Plan of Treatment Upcoming Encounters Date Type Department Care Team (Late st Contact Info) Description 06/19/2024 8:00 AM DRY WALL INSTALLER Appointment [facility] Mammography [address] [place] [address] Gwen Calero, PAC [address] [place] [address] Discharge Disposition: Discharged to home or Selfcare 06/19/2024 9:00 AM DRY WALL INSTALLER Appointment [facility] Ultrasound [address] [place] [address] Gwen Calero, PAC [address] [place] [address] Discharge Disposition: Discharged to home or Selfcare 08/13/2024 9:00 AM CDT [facility] - [place] [address] [place] [id number] Gwen Calero, PAC [address] [place] [address] documented as of this encounter Goals Goal [...] Ready to change Department associated with goal: [facility] Steps to achieve [...] as of this encounter Visit Diagnoses Diagnosis Anxiety- Primary Anxiety state, unspecified documented in this encounter Additional Health Concerns Assessment Noted Time PHQ-9 Depression Total Score: 12 01/27/ 022 1:00 PM CDT documented as of this encounter Care Teams Marketing Account Manager Relationship Specialty Start Date End Date Gwen Calero PAC [address] [place] [address] PCP - General Physician Change Director 06/12/21 Adam Alejo DO Gastroenterology 01/07/16 Johnna Valente APRN, HAWK MISSILE SYSTEM CREWMEMBER Nurse Practitioner Advanced Practice Nurse 01/07/16 Marisela Chaidez APRN, HAWK MISSILE SYSTEM CREWMEMBER Nurse Practitioner Advanced Practice Nurse 01/07/16 Johnathan Pugh MD [address] [place] [address] Obstetrics & Gynecology 08/13/19 documented as of this encounter
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
--- OUTSIDE RECORDS SUMMARY | 2024-06-09 07:52 | XMS_ITS | Encounter Summary ---
Author Organization [facility] Address [address] [place] [address] Phone Care Team Providers Care B2B Sales Professional Name Role Phone Adam Alejo DO Unavailable [phone] Johnna Valente BENCH WORKER HELPER, REGIONAL COORDINATOR Unavailable Marisela Chaidez BENCH WORKER HELPER, REGIONAL COORDINATOR Unavailable Johnathan Pugh MD Unavailable [phone] Gwen Calero PAC Primary Care Pro vider Encounter Details Date Type Department Care Team (Late st Contact Info) Description 11/09/2023 Telephone [facility] - [place] [address] [place] [address] Gwen Calero, [facility] [address] [place] [address] Social History Tobacco Use Types Packs/Day Years Used Date Smoking Tobacco: Former Cigarettes Q uit: 05/08/2016 Passive Smoke Exposure: Past Smokeless Tobacco: Never Comments:occasional smoker Alcohol Use Standard Drinks/Week Comments Yes 6 (1 standard drink = 0.6 oz pure alcohol) drinks three bottles of wine a week [facility] Utilities Answer Date Recorded In the past 12 months has [employer], gas, oil, or water [employer] threatened to shut off services in your [...] any clubs o r organizations such as religious groups, unions, fraternal or athletic groups, or [...] Total Score - Questions 1-9 12 01/05 [facility] - Occupational Stress Questionnaire Answer Date [...] Telephone Encounter - Radha Johnson RN - 11/09/2023 10:24 AM CDT ordered * Telephone Encounter - Estrella Swann RMA - 11/09/2023 10:12 AM CDT Patient a called said gwen was to but in a order for a ultrasound of her neck and [facility] did not receive Please advise documented in this encounter Plan of Treatment Upcoming Encounters Date Type Department Care Team (Late st Contact Info) Description 06/19/2024 8:00 AM MOLASSES AND CARAMEL OPERATOR Appointment [facility] [place] [place] [address] Gwen Calero, PAC [address] [place] [address] Discharge Disposition: Discharged to home or Selfcare 06/19/2024 9:00 AM MOLASSES AND CARAMEL OPERATOR Appointment [facility] Ultrasound [address] [place] [address] Gwen Calero, PAC [address] [place] [address] Discharge Disposition: Discharged to home or Selfcare 08/13/2024 9:00 AM CDT Office Visit [facility] - Internal Medicine - [place] [address] [id number] Gwen Calero, PAC [address] [address] documented as of this encounter Goals Goal [...] change Department associated with goal: [facility] Steps to achieve goal: [...] documented as of this encounter Care Teams B2B Sales Professional Relationship Specialty Start Date End Date Gwen Calero, CECY [address] [place] [address] PCP - General Physician Assistant Account Executive 06/12/21 Adam Alejo DO Gastroenterology 01/07/16 Johnna Valente, BENCH WORKER HELPER, REGIONAL COORDINATOR Nurse Practitioner Advanced Practice Nurse 01/07/16 Marisela Chaidez, BENCH WORKER HELPER, REGIONAL COORDINATOR Nurse Practitioner Advanced Practice Nurse 01/07/16 Johnathan Pugh MD [address] [place] [address] Obstetrics & Gynecology 08/13/19 documented as of this encounter
--- OUTSIDE RECORDS SUMMARY | 2024-06-09 07:52 | XMS_ITS | Encounter Summary ---
Author Organization [facility] Address [address] [place] [address] Phone Care Team Providers Care Sheet Metal Shop Supervisor Name Role Phone Adam Alejo DO Unavailable [phone] Johnna Valente RESPIRATORY CARE TECHNICIAN, SUPERVISOR FRONT Unavailable [phone] Marisela Chaidez RESPIRATORY CARE TECHNICIAN, SUPERVISOR FRONT Unavailable Johnathan Pugh MD Unavailable [phone] Gwen Calero PAC Primary Care Pro vider Reason for Visit * Reason Comments Breast Mass On right breast Encounter Details Date Type Department Care Team (Late st Contact Info) Description 06/18/2022 3:30 PM FIREMAN HELPER Office Visit [facility] - Internal Medicine - [place] [address] [place] [id number] Gwen Calero, PAC [address] [place] [address] Abnormal mammogram (Primary Dx) Discharge Disposition: Discharged to home or Selfcare Social History Tobacco Use Types Packs/Day Years Used Date Smoking Tobacco: Former Cigarettes Q uit: 05/08/2016 Smokeless Tobacco: Never Tobacco Cessation:Counseling Given: No [...] suspected to have Coronavirus/COVID-19? No / Unsure 06/18/2022 3:20 PM FIREMAN HELPER documented as of this encounter Last Filed Vital Signs Vital Sign Reading Time Taken Comments Blood Pressure 122/80 06/18/2022 3:38 PM FIREMAN HELPER Pulse 75 06/18/2022 3:38 PM FIREMAN HELPER Temperature 36 ??C (96.8 ??F) 06/18/2022 3:38 PM FIREMAN HELPER Respiratory Rate 14 06/18/2022 3:38 PM FIREMAN HELPER Oxygen Saturation 98% 06/18/2022 3:38 PM FIREMAN HELPER Inhaled Oxygen Concentration - - Weight 90.7 kg (200 lb) 06/18/2022 3:38 PM FIREMAN HELPER Height 160 cm (5' 3 ) 06/18/2022 3:38 PM FIREMAN HELPER Body Mass Index 35.43 06/18/2022 3:38 PM FIREMAN HELPER documented in this encounter Progress Notes * Estrella Swann, RMA - 06/18/2022 3:30 PM CST Shalonda Constantino, 36 y.o., female is here for Breast Mass (On right breast ) Medication Refills: Patient reports/denies need for medication refills. Orders Pended: no Requested Prescriptions No prescriptions requested or ordered in this encounter Home Medications Medication Sig Start Date End Date Taking? Authorizing Provider ALPRAZolam (XANAX) 0.25 MG Tablet Take 1 Tablet by mouth 2 times daily as needed for Anxiety. 05/19/22 Yes Gwen Calero PAC busPIRone (BUSPAR) 10 MG Tablet Take 1 Tablet by mouth nightly. 03/26/22 Yes Gwen Calero PAC EluRyng 0.12-0.015 MG/24HR RING INSERT 1 RING VAGINALLY EVERY 3 WEEKS FOR CONTINUOUS USE METHOD OF CONTROL 01/18/22 Yes Provider, MD Sam loperamide (IMODIUM) 2 MG Capsule 01/18/22 Yes ProviderSam MD ondansetron (ZOFRAN-ODT) 4 MG TABLET DISPERSIBLE DISSOLVE 1 TABLET UNDER THE TONGUE EVERY 8 HOURS NEEDED FOR NAUSEA 01/18/22 Yes Provider, MD Sam There are no discontinued medications. I have reviewed the home medication list with the patient and have reconciled discrepancies. The list is accurate to the best of my knowledge. Smoking Status: Social History Tobacco Use ??? Smoking status: Former Types: Cigarettes Quit date: 05/08/2016 Years since quittin.1 ??? Smokeless tobacco: Never ??? Tobacco comments: [...] 3 - 3-dose series) Never done ??? SARS-COV-2 Immunization (1) Never done ??? Cervical Cancer Screening (CCS) Never done ??? Influenza Immunization (1) 02/04/2022 Orders Pended: no The following BPA's have been addressed with the patient today: BMI, Flu, Pneumonia and Depression MAN HELPER * Gwen Calero PAC - 06/18/2022 3:30 PM CST Chief Complaint: Chief Complaint Patient presents with ??? Breast Mass On right breast Assessment/Plan: Diagnoses and all orders for this visit: Abnormal mammogram Reviewed report with her She continues to have breast pain in this area I have referred her to FABRIC SEPARATOR OPERATOR for hormone studies Avoid caffeine NSAIDS prn Referred to breast specialist in [place]; pt to call and make appt F/u 3 mo otherwise Subjective: Ms. Shalonda Constantino is a 36 y.o. female here today for above. Mammogram follow up Diagnostic with u/s Negative for malignancy Pt still has R outer breast pain Trying to avoid caffeine Denies other c/o ROS: Review of Systems Genitourinary: R breast pain; outer quad VITAL SIGNS: BP Readings from Last 3 Encounters: 06/18/22 122/80 03/26/22 110/88 01/27/22 128/80 Wt Readings from Last 3 Encounters: 06/18/22 200 lb (90.7 kg) 03/26/22 194 lb 6.4 oz (88.2 kg) 01/27/22 198 lb 1.6 oz (89.9 kg) Vitals: 06/18/22 1538 BP: 122/80 BP Location: Left Arm BP Position: Sitting BP Cuff Size: Regular Pulse: 75 Resp: 14 Temp: 96.8 ??F (36 ??C) TempSrc: Temporal SpO2: 98% Weight: 200 lb (90.7 kg) Height: 5' 3 (1.6 m) Body mass index is 35.43 kg/m??. PHYSICAL EXAM: Physical Exam Vitals reviewed. HENT: Head: Normocephalic. Cardiovascular: Rate and Rhythm: Regular rhythm. Heart sounds: Normal heart sounds. Pulmonary: Effort: Pulmonary effort is normal. Breath sounds: Normal breath sounds. Neurological: General: No focal deficit present. Mental Status: She is alert. Mental status [...] LDL 67 06/03/2022 No results found for: PSASCREEN, PSA, PSAFREE, PSAPCNTFREE, PSATOTAL @MAMMOFINDINGS@ No results found. Recent Procedure Details No resulted procedures found. FOLLOWUP: Follow-up Information Return in about 3 months (around 09/16/2022) for Chronic Illness Visit. LOS Today OFFICE/OP [...] given to the patient. Patient (or patient chemical sales representative) demonstrates verbal understanding of instructions given. [...] our referral team or the referring physician. MAN HELPER documented in this encounter Plan of Treatment Upcoming Encounters Date Type Department Care Team (Late st Contact Info) Description 06/19/2024 8:00 AM FIREMAN HELPER [facility] 1 [place] [address] Gwen Calero, PAC [address] [place] [address] Discharge Disposition: Discharged to home or Selfcare 06/19/2024 9:00 AM FIREMAN HELPER [facility] 1 [place] [address] Gwen Calero, PAC [address] [place] [address] Discharge Disposition: Discharged to home or Selfcare 08/13/2024 9:00 AM CDT [facility] - [place] [address] [place] [address] Gwen Calero, PAC [address] [place] [address] documented as of this encounter Goals Goal [...] to change Department associated with goal: [facility] Steps to achieve goal: [...] as of this encounter Visit Diagnoses Diagnosis Abnormal mammogram- Primary Abnormal mammogram, unspecified documented in this encounter Additional Health Concerns Assessment Noted Time PHQ-9 Depression Total Score: 12 022 1:00 PM CDT documented as of this encounter Care Teams Sheet Metal Shop Supervisor Relationship Specialty Start Date End Date Gwen Calero, PAC [address] [place] [address] PCP - General Physician Integration Director 06/12/21 Adam Alejo DO Gastroenterology 01/07/16 Johnna Valente APRN, SUPERVISOR FRONT Nurse Practitioner Advanced Practice Nurse 01/07/16 Marisela Chaidez APRN, SUPERVISOR FRONT Nurse Practitioner Advanced Practice Nurse 01/07/16 Johnathan Pugh MD [address] [place] [address] Obstetrics & Gynecology 08/13/19 documented as of this encounter
--- OUTSIDE RECORDS SUMMARY | 2024-06-09 07:52 | XMS_ITS | Encounter Summary ---
Author Organization [facility] Address [address] [place] [address] [place] [address] Phone Care Team Providers Care Clinical Laboratory Scientist Name Role Phone Adam Alejo DO Unavailable [phone] Johnna Valente RAW STOCK DRIER TENDER, GRIZZLY WORKER Unavailable Marisela Chaidez RAW STOCK DRIER TENDER, GRIZZLY WORKER Unavailable Johnathan Pugh MD Unavailable [phone] Gwen Calero PAC Primary Care Pro vider Reason for Visit * Reason Comments Gastrointestinal Problem 4 wk rek Encounter Details Date Type Department Care Team (Latest Contact Info) Description 12/07/2023 8:45 AM CDT Office Visit [facility] - Internal Medicine - [place] [address] [place] [phone] Gwen Calero, PAC [address] [place] [address] Gastroesophageal reflux disease, unspecified whether esophagitis present (Primary Dx) Discharge Disposition: Discharged to home [...] Recorded In the past 12 months has th e electric, gas, oil, or water company [...] How often do you attend chur or judaism services? More than 4 times per year 11/08/2023 Do you belong to any clubs o r organizations such as latter-day groups, unions, fraternal or athletic groups, or [...] Total Score - Questions 1-9 12 01/05 [facility] - Occupational Stress [...] place to sleep or slept in a retirement (including now)? Patient declined 11/08/2023 Education Answer [...] Sign Reading Time Taken Comments Blood Pressure 112/84 12/07/2023 8:51 AM CDT Pulse 64 12/07/2023 8:51 AM CDT Temperature 36.4 ??C (97.5 ??F) 12/07/2023 8:51 AM CD T Respiratory Rate 12 12/07/2023 8:51 AM CDT Oxygen Saturation 99% 12/07/2023 8:51 AM CDT Inhaled Oxygen Concentration - - Weight 88.5 kg (195 lb) 12/07/2023 8:51 AM CDT Height - - Body Mass Index 34.54 11/08/2023 8:27 AM CDT documented in this encounter Progress Notes * Estrella Swann RMA - 12/07/2023 8:45 AM CDT Shalonda Constantino, 38 y.o., female is here for Gastrointestinal Problem (4 wk rek ) Medication Refills: Patient reports/denies need for medication refills. Orders Pended: no Requested Prescriptions No prescriptions requested or ordered in this encounter Home Medications Medication Sig Start Date End Date Taking? Authorizing Provider ALPRAZolam (XANAX) 0.25 MG Tablet TAKE 1 TABLET BY MOUTH TWICE DAILY NEEDED FOR ANXIETY 06/10/23 Gwen Calero PAC amitriptyline (ELAVIL) 25 MG Tablet Take 1 Tablet by mouth nightly. 06/10/23 Gwen Calero PAC busPIRone (BUSPAR) 10 MG Tablet Take 1 Tablet by mouth nightly. 03/26/22 Gwen Calero PAC omeprazole (PriLOSEC) 20 MG CAPSULE DELAYED RELEASE Take 1 Capsule by mouth daily. 11/08/23 Gwen Calero PAC ondansetron (ZOFRAN-ODT) 4 MG TABLET DISPERSIBLE Take 1 Tablet by mouth every 8 hours as needed forNausea - 2nd line. 11/18/23 Gwen Calero PAC There are no [...] (HCV) Screening Never done Hepatitis B Immunization ( of - 19+ 3-dose series) Never done Cervical Cancer Screening (CCS) Never done SARS-COV-2 Immunization (2022- season) Never done Orders Pended: no The following BPA's have been addressed with the patient today: BMILacey A Constantino, 38 y.o., female is here for Gastrointestinal Problem (4 wk rek ) Medication Refills: Patient reports/denies need for medication refills. Orders Pended: no Requested Prescriptions No prescriptions requested or ordered in this encounter Home Medications Medication Sig Start Date End Date Taking? Authorizing Provider ALPRAZolam (XANAX) 0.25 MG Tablet TAKE 1 TABLET BY MOUTH TWICE DAILY NEEDED FOR ANXIETY 06/10/23 Gwen Calero PAC amitriptyline (ELAVIL) 25 MG Tablet Take 1 Tablet by mouth nightly. 06/10/23 Gwen Calero PAC busPIRone (BUSPAR) 10 MG Tablet Take 1 Tablet by mouth nightly. 03/26/22 Gwen Calero PAC omeprazole (PriLOSEC) 20 MG CAPSULE DELAYED RELEASE Take 1 Capsule by mouth daily. 11/08/23 Gwen Calero PAC ondansetron (ZOFRAN-ODT) 4 MG TABLET DISPERSIBLE Take 1 Tablet by mouth every 8 hours as needed forNausea - 2nd line. 11/18/23 Gwen Calero PAC There are no [...] (HCV) Screening Never done Hepatitis B Immunization ( of 3 - 19+ 3-dose series) Never done Cervical Cancer Screening (CCS) Never done SARS-COV-2 Immunization (2022- season) Never done Orders Pended: no The following BPA's have been addressed with the patient today: BMI * Gwen Calero, PAC - 12/07/2023 8:45 AM CDT Chief Complaint: Chief Complaint Patient presents with Gastrointestinal Problem 4 wk rek Assessment/Plan: Diagnoses and all orders for this visit: Gastroesophageal reflux disease, unspecified whether esophagitis present GERD persists but is slightly better Cont with PPI Add pepcid PRN Tums PRN Going to see GI Referred Subjective: Ms. Shalonda Constantino is a 38 y.o. female here today for above. GERD f/u Sx slightly better but still present Avoiding food triggers No other c/o Going to see GI soon Weight stable ROS: Review of Systems Gastrointestinal: Positive for abdominal pain and heartburn. VITAL SIGNS: BP Readings from Last 3 Encounters: 12/07/23 112/84 11/08/23 100/72 06/10/23 112/80 Wt Readings from Last 3 Encounters: 12/07/23 195 lb (88.5 kg) 11/08/23 200 lb (90.7 kg) 06/10/23 193 lb (87.5 kg) Vitals: 12/07/23 0851 BP: 112/84 BP Location: Left Arm BP Position: Sitting BP Cuff Size: Regular Pulse: 64 Resp: 12 Temp: 97.5 ??F (36.4 ??C) TempSrc: Temporal SpO2: 99% Weight: 195 lb (88.5 kg) Body mass index is 34.54 kg/m??. PHYSICAL EXAM: Physical Exam Vitals reviewed. Constitutional: Appearance: Normal appearance. HENT: Head: Normocephalic and atraumatic. Right Ear: Tympanic membrane normal. Left Ear: Tympanic membrane normal. Nose: Nose normal. Mouth/Throat: Mouth: Mucous membranes are moist. Eyes: Extraocular Movements: Extraocular movements intact. Conjunctiva/sclera: Conjunctivae normal. Pupils: Pupils are equal, round, and reactive to light. Cardiovascular: Rate and Rhythm: Regular rhythm. Heart sounds: Normal heart sounds. Pulmonary: Breath sounds: Normal breath sounds. Abdominal: General: Bowel sounds are normal. Palpations: Abdomen is soft. Musculoskeletal: General: Normal range of motion. Skin: General: Skin is warm. Neurological: General: [...] found. FOLLOWUP: Follow-up Information Return in about 6 months (around 06/08/2024) for Chronic Illness Visit. LOS Today OFFICE/OP [...] given to the patient. Patient (or patient loan servicing representative) demonstrates verbal understanding of instructions given. [...] the referring physician. documented in this encounter Plan of Treatment Upcoming Encounters Date Type Department Care Team (Late st Contact Info) Description 06/19/2024 8:00 AM INSOLE FILLER [facility] 1 [place] [address] Gwen Calero, CECY [address] [place] [address] Discharge Disposition: Discharged to home or Selfcare 06/19/2024 9:00 AM INSOLE FILLER [facility] 1 [place] [address] Gwen Calero PAC [address] [place] [address] Discharge Disposition: Discharged to home or Selfcare 08/13/2024 9:00 AM CDT [facility] - [place] [address] [place] [address] Gwen Calero PAC [address] [place] [address] documented as of this encounter Goals Goal [...] Ready to change Department associated with goal: [facility] Steps to [...] reflux disease, unspecified whether esophagitis present- Primary documented in this encounter Additional Health Concerns Assessment Noted Time PHQ-9 Depression Total Score: 12 022 1:00 PM CDT documented as of this encounter Care Teams Clinical Laboratory Scientist Relationship Specialty Start Date End Date Gwen Calero PAC [address] [place] [address] PCP - General Physician Roll Wrapper 06/12/21 Adam Alejo DO Gastroenterology 01/07/16 Johnna Valente APRN, GRIZZLY WORKER Nurse Practitioner Advanced Practice Nurse 01/07/16 Marisela Chaidez APRN, GRIZZLY WORKER Nurse Practitioner Advanced Practice Nurse 01/07/16 Johnathan Pugh MD [address] [place] [address] Obstetrics & Gynecology 08/13/19 documented as of this encounter
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
--- OUTSIDE RECORDS SUMMARY | 2024-06-09 07:52 | XMS_ITS | Encounter Summary ---
Author Organization [employer] Care Team Providers Care Composition Weatherboard Installer Name Role Phone Adam Alejo DO Unavailable [phone] Johnna Valente SCRUM COACH, JEWELRY STORE MANAGER Unavailable [phone] Marisela Chaidez SCRUM COACH, JEWELRY STORE MANAGER Unavailable Johnathan Pugh MD Unavailable [phone] Gwen Calero PAC Primary Care Pro vider Encounter Details Date Type Department Care Team (Latest Contact Info) Description 06/18/2022 Travel Social History Tobacco Use Types Packs/Day [...] Coronavirus/COVID-19? No / Unsure 06/18/2022 3:20 PM HOT PLATE PRESS OPERATOR documented as of this encounter Plan of Treatment Upcoming Encounters Date Type Department Care Team (Late Contact Info) Description 06/19/2024 8:00 AM HOT PLATE PRESS OPERATOR Appointment [facility] Mammography 1 [facility] [place] [address] Gwen Calero, PAC [address] [place] [address] Discharge Disposition: Discharged to home or Selfcare 06/19/2024 9:00 AM HOT PLATE PRESS OPERATOR Appointment [facility] Ultrasound 1 [facility] [place] [address] Gwen Calero, PAC [address] [place] [address] Discharge Disposition: Discharged to home or Selfcare 08/13/2024 9:00 AM CDT [facility] - [facility] - [place] [address] [place] [address] Gwen Calero, PAC [address] [place] [address] documented as of this encounter Goals Goal [...] Ready to change Department associated with goal: [facility] Steps to [...] documented as of this encounter Care Teams Composition Weatherboard Installer Relationship Specialty Start Date End Date Gwen Calero, [facility] [address] [place] [address] PCP - General Physician Warehouse Technician 06/12/21 Adam Alejo DO Gastroenterology 01/07/16 Johnna Valente APRN, JEWELRY STORE MANAGER Nurse Practitioner Advanced Practice Nurse 01/07/16 Marisela Chaidez, MICHAEL, JEWELRY STORE MANAGER Nurse Practitioner Advanced Practice Nurse 01/07/16 Johnathan Pugh MD [address] [place] [address] Obstetrics & Gynecology 08/13/19 documented as of this encounter
--- OUTSIDE RECORDS SUMMARY | 2024-06-09 07:52 | XMS_ITS | Encounter Summary ---
Author Organization [facility] Address [address] [place] [address] Phone Care Team Providers Care Cathead Worker Name Role Phone Adam Alejo DO Unavailable [phone] Johnna Valente FLOATING LABOR GANG SUPERVISOR, IMMUNOLOGIST Unavailable Marisela Chaidez FLOATING LABOR GANG SUPERVISOR, IMMUNOLOGIST Unavailable Johnathan Pugh MD Unavailable [phone] Gwen Calero PAC Primary Care Pro vider Reason for Visit * Reason Onset Date Comments Results 06/08/2022 Encounter Details Date Type Department Care Team (Late st Contact Info) Description 06/08/2022 Telephone [facility] - [place] [address] [place] [address] Gwen Calero, [facility] [address] [place] [address] Results Social History Tobacco Use Types Packs/Day Years [...] Miscellaneous Notes * Telephone Encounter - Radha Johnson, RN - 06/08/2022 3:58 PM CST ----- Message from Jerel Pinedo MD sent at 06/08/2022 8:00 AM IRRIGATION ENGINEER ----- Cmp, TSH, CBC, HbA1c- Okay Lipids- HDL Low- exercise should help. GATION ENGINEER documented in this encounter Plan of Treatment Upcoming Encounters Date Type Department Care Team (Late st Contact Info) Description 06/19/2024 8:00 AM IRRIGATION ENGINEER [facility] [address] [place] [address] Gwen Calero, PAC [address] [place] [address] Discharge Disposition: Discharged to home or Selfcare 06/19/2024 9:00 AM IRRIGATION ENGINEER [facility] [address] [place] [address] Gwen Calero, PAC [address] [place] [address] Discharge Disposition: Discharged to home or Selfcare 08/13/2024 9:00 AM CDT Office Visit [facility] [place] [address] [place] [phone] Gwen Calero, PAC [address] [place] [address] documented as of this encounter Goals Goal [...] documented as of this encounter Care Teams Cathead Worker Relationship Specialty Start Date End Date Gwen Calero PAC [address] [place] [address] PCP - General Physician Veteran Appeals Reviewer 06/12/21 Adam Alejo DO Gastroenterology 01/07/16 Johnna Valente APRN, IMMUNOLOGIST Nurse Practitioner Advanced Practice Nurse 01/07/16 Marisela Chaidez APRN, IMMUNOLOGIST Nurse Practitioner Advanced Practice Nurse 01/07/16 Johnathan Pugh MD [address] [place] [address] Obstetrics & Gynecology 08/13/19 documented as of this encounter
--- OUTSIDE RECORDS SUMMARY | 2024-06-09 07:52 | XMS_ITS | Encounter Summary ---
Author Organization [facility] Address [address] [place] [address] Phone Care Team Providers Care Academic Physician Name Role Phone Adam Alejo DO Unavailable [phone] Johnna Valente STUDENT SERVICES COORDINATOR, POT PRESS OPERATOR Unavailable [phone] Marisela Chaidez STUDENT SERVICES COORDINATOR, POT PRESS OPERATOR Unavailable Johnathan Pugh MD Unavailable [phone] Gwen Calero PAC Primary Care Pro vider Reason for Visit * Reason Onset Date Comments Medication Refill 10/19/2023 Encounter Details Date Type Department Care Team (Late st Contact Info) Description 10/19/2023 Refill [facility] - Internal Medicine - [place] [address] [place] [address] Gwen Calero, [facility] [address] [place] [address] Medication Refill Social History Tobacco Use Types Packs/Day Years Used Date Smoking Tobacco: Former Cigarettes Q uit: 05/08/2016 Passive Smoke Exposure: Past Smokeless Tobacco: Never Comments:occasional smoker Alcohol Use Standard Drinks/Week Comments Yes 6 (1 standard drink = 0.6 oz pure alcohol) drinks three bottles of wine a week [facility] Utilities Answer Date Recorded In the past 12 months has [employer], gas, oil, or water [employer] threatened to shut off services in your [...] often do you attend chur ch or hinduism services? More than 4 times per year 06/10/2023 Do you belong to any clubs o r organizations such as mormonism groups, unions, fraternal or athletic groups, or [...] Total Score - Questions 1-9 12 01/05 [facility] Questionnaire Answer Date [...] place to sleep or slept in a senior living (including now)? Patient declined 06/10/2023 Education Answer [...] Telephone Encounter - Gwen Calero PAC - 10/19/2023 4:32 PM CDT Will not RF I said I would fill for 3 months; this time has exhausted If she would like to talk about alternatives to weight loss she can make an OV * Telephone Encounter - Radha Johnson RN - 10/19/2023 3:36 PM CDT Medication failed the protocol, provider to review and approve the medication order if appropriate. Requested Prescriptions Pending Prescriptions Disp Refills Phentermine HCl 37.5 MG Tablet 30 Tablet 2 Sig: Take 1 Tablet by mouth every morning (before breakfast). Not Delegated - Anorexiants Non-amphetamine Protocol Failed - 10/19/2023 3:34 PM Failed - This refill cannot be delegated Passed - Visit with relevant provider in past 12 months or upcoming 90 days Recent Visits Date Type Provider Dept 06/10/23 Office Visit Gwen Calero PAC [facility] [place] Showing recent visits within past 365 days and meeting all other requirements Future Appointments No visits were found meeting these conditions. Showing future appointments within next 90 days and meeting all other requirements * Telephone Encounter - September - 10/19/2023 3:34 PM CDT Refill Request: Requested Prescriptions Pending Prescriptions Disp Refills Phentermine HCl 37.5 MG Tablet 30 Tablet 2 Sig: Take 1 Tablet by mouth every morning (before breakfast). Pharmacy: [email or web address] documented in this encounter Plan of Treatment Upcoming Encounters Date Type Department Care Team (Late st Contact Info) Description 06/19/2024 8:00 AM ELIGIBILITY CLERK Appointment [facility] Mammography 1 [place] [address] Gwen Calero, PAC [address] [place] [address] Discharge Disposition: Discharged to home or Selfcare 06/19/2024 9:00 AM ELIGIBILITY CLERK [facility]ment [facility] [address] [place] [address] Gwen Calero, PAC [address] [place] [address] Discharge Disposition: Discharged to home or Selfcare 08/13/2024 9:00 AM CDT Office Visit [facility] Group - Internal Medicine - [place] [address] [place] [address] Gwen Calero, PAC [address] [place] [address] documented as of this encounter Goals Goal [...] Ready to change Department associated with goal: [facility] Steps to achieve [...] unspecified obesity type, unspecified whether serious comorbidity present documented in this encounter Additional Health Concerns Assessment Noted Time PHQ-9 Depression Total Score: 12 022 1:00 PM CDT documented as of this encounter Care Teams Academic Physician Relationship Specialty Start Date End Date Gwen Calero, PAC [address] [place] [address] PCP - General Physician Layup Worker 06/12/21 Adam Alejo DO Gastroenterology 01/07/16 Johnna Valente APRN, POT PRESS OPERATOR Nurse Practitioner Advanced Practice Nurse 01/07/16 Marisela Chaidez, MICHAEL, POT PRESS OPERATOR Nurse Practitioner Advanced Practice Nurse 01/07/16 Johnathan Pugh MD [address] [place] [address] Obstetrics & Gynecology 08/13/19 documented as of this encounter
--- OUTSIDE RECORDS SUMMARY | 2024-06-09 07:52 | XMS_ITS | Encounter Summary ---
Author Organization [facility] Address [address] [place] [address] Phone Care Team Providers Care Systems Software Specialist Name Role Phone Adam Alejo DO Unavailable [phone] Johnna Valente CONCERT MANAGER, ASPHALT COATER Unavailable Marisela Chaidez CONCERT MANAGER, ASPHALT COATER Unavailable Johnathan Pugh MD Unavailable [phone] Gwen Calero PAC Primary Care Pro vider Reason for Visit * Reason Onset Date Comments Medication Refill 01/27/2023 Encounter Details Date Type Department Care Team (Late st Contact Info) Description 01/27/2023 Refill [facility] Group - Internal Medicine - [place] [address] [place] [address] Gwen Calero, [facility] [address] [place] [address] Medication Refill Social History Tobacco Use Types [...] Telephone Encounter - Radha Johnson RN - 01/28/2023 8:22 AM CDT Medication failed the protocol, provider to review and approve the medication order if appropriate. Requested Prescriptions Pending Prescriptions Disp Refills ALPRAZolam (XANAX) 0.25 MG Tablet 30 Tablet 0 Sig: TAKE 1 TABLET BY MOUTH TWICE DAILY NEEDED FOR ANXIETY Not Delegated - Benzodiazepines Protocol Failed - 01/27/2023 4:28 PM Failed - This refill cannot be delegated Passed - Visit with relevant provider in past 12 months or upcoming 90 days Recent Visits Date Type Provider Dept 09/23/22 Office Visit Gwen Calero PAC [facility] [place] 06/18/22 Office Visit Gwen Calero PAC [facility] [place] 03/26/22 Office Visit Gwen Calero PAC [facility] [place] Showing recent visits within past 365 days and meeting all other requirements Future Appointments No visits were found meeting these conditions. Showing future appointments within next 90 days and meeting all other requirements Phentermine HCl 37.5 MG Tablet 30 Tablet 2 Sig: Take 1 Tablet by mouth every morning (before breakfast). Not Delegated - Anorexiants Non-amphetamine Protocol Failed - 01/27/2023 4:28 PM Failed - This refill cannot be delegated Passed - Visit with relevant provider in past 12 months or upcoming 90 days Recent Visits Date Type Provider Dept 09/23/22 Office Visit Gwen Calero PAC [facility] [place] 06/18/22 Office Visit Gwen Calero PAC [facility] [place] 03/26/22 Office Visit Gwen Calero PAC [facility] [place] Showing recent visits within past 365 days and meeting all other requirements Future Appointments No visits were found meeting these conditions. Showing future appointments within next 90 days and meeting all other requirements * Telephone Encounter - September - 01/27/2023 4:27 PM CDT Refill Request: Requested Prescriptions Pending Prescriptions Disp Refills ??? ALPRAZolam (XANAX) 0.25 MG Tablet 30 Tablet 0 ??? Phentermine HCl 37.5 MG Tablet 30 Tablet 2 Sig: Take 1 Tablet by mouth every morning (before breakfast). Pharmacy: [facility] documented in this encounter Plan of Treatment Upcoming Encounters Date Type Department Care Team (Late st Contact Info) Description 06/19/2024 8:00 AM HAND PACKER/PACKAGER [facility]ment [facility] 1 [place] [address] Gwen Calero, PAC [address] [place] [address] Discharge Disposition: Discharged to home or Selfcare 06/19/2024 9:00 AM HAND PACKER/PACKAGER [facility] [address] [place] [address] Gwen Calero, PAC [address] [place] [address] Discharge Disposition: Discharged to home or Selfcare 08/13/2024 9:00 AM CDT [facility] Visit [facility] [place] [address] [place] [address] Gwen Calero, PAC [address] [place] [address] documented as of this encounter Goals Goal Patient Goal Type Associated Problems Recent Progress Patient-Stated? Author wants a quiet brain and to be able to focus on task at hand Behavioral Health Yes Carmelina, Meagan Uche, [place] SUPPORT SPECIALIST Improve attention skills Behavioral Health No Meagan Cosme LCSW Note: Goal/Objective: Increase attention skills. Anticipated Time Frame for Goal Completion: 3 months Goal Reviewed with: patient Readiness to change: Ready to change Department associated with goal: [facility] BE[facility] HE[facility] SERVICES Steps to [...] Visit Diagnoses Diagnosis Anxiety Anxiety state, unspecified Obesity, unspecified classification, unspecified obesity type, unspecified whether serious comorbidity present documented in this encounter Additional Health Concerns Assessment Noted Time PHQ-9 Depression Total Score: 12 022 1:00 PM CDT documented as of this encounter Care Teams Systems Software Specialist Relationship Specialty Start Date End Date Gwen Calero PAC [address] [place] [address] PCP - General Physician Antiquer 06/12/21 Adam Alejo DO Gastroenterology 01/07/16 Johnna Valente APRN, ASPHALT COATER Nurse Practitioner Advanced Practice Nurse 01/07/16 Marisela Chaidez APRN, ASPHALT COATER Nurse Practitioner Advanced Practice Nurse 01/07/16 Johnathan Pugh MD [address] [place] [address] Obstetrics & Gynecology 08/13/19 documented as of this encounter
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
--- OUTSIDE RECORDS SUMMARY | 2024-06-09 07:52 | XMS_ITS | Encounter Summary ---
Author Organization [facility] Address [address] [place] [address] Phone Care Team Providers Care Chemical Process Analyst Name Role Phone Adam Alejo DO Unavailable [phone] Johnna Valente INTEGRATED SPECIALIST, RUBY RAILS DEVELOPER Unavailable [phone] Marisela Chaidez INTEGRATED SPECIALIST, RUBY RAILS DEVELOPER Unavailable Johnathan Pugh MD Unavailable [phone] Gwen Calero PAC Primary Care Pro vider Reason for Visit * Reason Onset Date Comments Medication Management 11/18/2023 Encounter Details Date Type Department Care Team (Late st Contact Info) Description 11/18/[address] [facility] Medical Group - Internal Medicine - [place] [address] [place] [address] Gwen Calero, [facility] [address] [facility] [place] [address] Medication Management Social History Tobacco Use Types Packs/Day Years Used Date Smoking Tobacco: Former Cigarettes Q uit: 05/08/2016 Passive Smoke Exposure: Past Smokeless Tobacco: Never Comments:occasional smoker Alcohol Use Standard Drinks/Week Comments Yes 6 (1 standard drink = 0.6 oz pure alcohol) drinks three bottles of wine a week [facility] Utilities Answer Date Recorded In the past 12 months has [employer], gas, oil, or water company threatened to [...] any clubs o r organizations such as presybeterian groups, unions, fraternal or athletic groups, or [...] 12 01/05 [facility]ational Stress Questionnaire Answer Date [...] place to sleep or slept in a correction (including now)? Patient declined 11/08/2023 Education Answer [...] Telephone Encounter - Gwen Calero PAC - 11/18/2023 12:46 PM CDT Pt was referred to GI and referred for abd u/s Where are we with getting these things? * Telephone Encounter - Meena Fontenot - 11/18/2023 8:41 AM CDT New script Shalonda is requesting a new script of Zofran for Nausea. She was seen in the office with stomach issues on 11-08-23 and is still nauseas. Phone - [phone] Pharmacy - [facility] documented in this encounter Plan of Treatment Upcoming Encounters Date Type Department Care Team (Late st Contact Info) Description 06/19/2024 8:00 AM MARKETING PROGRAM MANAGER Appointment [facility] Mammography 1 [facility] [place] [address] Gwen Calero, PAC [address] [place] [address] Discharge Disposition: Discharged to home or Selfcare 06/19/2024 9:00 AM MARKETING PROGRAM MANAGER Appointment [facility] Ultrasound [address] [place] [address] Gwen Calero, PAC [address] [place] [address] Discharge Disposition: Discharged to home or Selfcare 08/13/2024 9:00 AM CDT Office Visit [facility] - Internal Medicine - [place] [address] [place] [address] Gwen Calero, PAC [address] [place] [address] documented as of this encounter Goals Goal [...] change Department associated with goal: [facility] Steps to [...] documented as of this encounter Care Teams Chemical Process Analyst Relationship Specialty Start Date End Date Gwen Calero PAC [address] [place] [address] PCP - General Physician Energy Rater 06/12/21 Adam Alejo DO Gastroenterology 01/07/16 Johnna Valente APRN, RUBY RAILS DEVELOPER Nurse Practitioner Advanced Practice Nurse 01/07/16 Marisela Chaidez, MICHAEL, RUBY RAILS DEVELOPER Nurse Practitioner Advanced Practice Nurse 01/07/16 Johnathan Pugh MD [address] [place] [address] Obstetrics & Gynecology 08/13/19 documented as of this encounter
--- OUTSIDE RECORDS SUMMARY | 2024-06-09 07:52 | XMS_ITS | Encounter Summary ---
Author Organization [facility] Address [address] [place] [address] Phone Care Team Providers Care Body Service Team Member Name Role Phone Adam Alejo DO Unavailable [phone] Johnna Valente EVENT PROMOTER, KENNEL TECHNICIAN Unavailable Marisela Chaidez EVENT PROMOTER, KENNEL TECHNICIAN Unavailable Johnathan Pugh MD Unavailable [phone] Gwen Calero PAC Primary Care Pro vider Reason for Visit * Reason Comments Medication Refill Encounter Details Date Type Department Care Team (Late st Contact Info) Description 10/07/2022 Refill [facility] - Internal Medicine - [place] [address] [place] [phone] Gwen Calero, PAC [address] [facility] [place] [address] Medication Refill Social History Tobacco Use Types [...] Telephone Encounter - Radha Johnson RN - 10/08/2022 2:25 PM CDT Medication failed the protocol, provider to review and approve the medication order if appropriate. Requested Prescriptions Pending Prescriptions Disp Refills ALPRAZolam (XANAX) 0.25 MG Tablet [Pharmacy Med Name: ALPRAZOLAM 0.25MG TABLETS] 30 Tablet 0 Sig: TAKE 1 TABLET BY MOUTH TWICE DAILY NEEDED FOR ANXIETY Not Delegated - Benzodiazepines Protocol Failed - 10/07/2022 2:31 PM Failed - This refill cannot be delegated Passed - Visit with relevant provider in past 12 months or upcoming 90 days Recent Visits Date Type Provider Dept 09/23/22 Office Visit Gwen Calero PAC [facility] [place] 06/18/22 Office Visit Gwen Calero PAC [facility] [place] 03/26/22 Office Visit Gwen Calero PAC [facility] [place] 01/27/22 Office Visit Gwen Calreo PAC [facility] [place] Showing recent visits within past 365 days and meeting all other requirements Future Appointments Date Type Provider Dept 10/29/22 Appointment Gwen Calero PAC [facility] [place] Showing future appointments within next 90 days and meeting all other requirements documented in this encounter Plan of Treatment Upcoming Encounters Date Type Department Care Team (Late st Contact Info) Description 06/19/2024 8:00 AM LOCKSTITCH ZIPPER SETTER [facility]ment [facility] M[facility] 1 [facility] [place] [address] Gwen Calero, PAC [address] [place] [address] Discharge Disposition: Discharged to home or Selfcare 06/19/2024 9:00 AM LOCKSTITCH ZIPPER SETTER Appointment [facility] Ultrasound 1 [facility] [place] [address] Gwen Calero, PAC [address] [place] [address] Discharge Disposition: Discharged to home or Selfcare 08/13/2024 9:00 AM CDT Office Visit [facility] - Internal Medicine - [place] [address] [place] [phone] Gwen Calero, PAC [address] [place] [address] documented as of this encounter Goals Goal [...] Ready to change Department associated with goal: [facility] Steps to achieve [...] documented as of this encounter Care Teams Body Service Team Member Relationship Specialty Start Date End Date Gwen Calero PAC [address] [place] [address] PCP - General Physician Machine Tool Builder 06/12/21 Adam Alejo DO Gastroenterology 01/07/16 Johnna Valente APRN, KENNEL TECHNICIAN Nurse Practitioner Advanced Practice Nurse 01/07/16 Marisela Chaidez, MICHAEL, KENNEL TECHNICIAN Nurse Practitioner Advanced Practice Nurse 01/07/16 Johnathan Pugh MD [address] [place] [address] Obstetrics & Gynecology 08/13/19 documented as of this encounter
--- OUTSIDE RECORDS SUMMARY | 2024-06-09 07:52 | XMS_ITS | Encounter Summary ---
Author Organization [facility] Address [address] [place] [address] Phone Care Team Providers Care Fisher Mussel Name Role Phone Adam Alejo DO Unavailable [phone] Johnna Valente SHOT EXAMINER, THERMAL SPRAY OPERATOR Unavailable Marisela Chaidez SHOT EXAMINER, THERMAL SPRAY OPERATOR Unavailable Johnathan Pugh MD Unavailable [phone] Gwen Calero PAC Primary Care Pro vider Reason for Visit * Reason Comments Medication Refill Encounter Details Date Type Department Care Team (Late st Contact Info) Description 10/18/2023 Refill [facility] - Internal Medicine - [place] [address] [place] [phone] Gwen Calero, PAC [address] [place] [address] Medication Refill Social History Tobacco Use Types Packs/Day Years Used Date Smoking Tobacco: Former Cigarettes Q uit: 05/08/2016 Passive Smoke Exposure: Past Smokeless Tobacco: Never Comments:occasional smoker Alcohol Use Standard Drinks/Week Comments Yes 6 (1 standard drink = 0.6 oz pure alcohol) drinks three bottles of wine a week [facility] Utilities Answer Date Recorded In the past 12 months has [employer], gas, oil, or water Inhab[employer] threatened to shut off services in your [...] often do you attend chur ch or zoroastrian services? More than 4 times per year 06/10/2023 Do you belong to any clubs o r organizations such as sabianist groups, unions, fraternal or athletic groups, or [...] Total Score - Questions 1-9 12 01/05 [facility] - Occupational Stress Questionnaire Answer Date [...] in a retirement (including now)? Patient declined 06/10/2023 Education Answer [...] st Contact Info) Description 06/19/2024 8:00 AM PIPELINES SUPERINTENDENT [facility]ment [facility] 1 [place] [address] Gwen Calero, PAC [address] [place] [address] Discharge Disposition: Discharged to home or Selfcare 06/19/2024 9:00 AM PIPELINES SUPERINTENDENT [facility] 1 [place] [address] Gwen Calero, PAC [address] [place] [address] Discharge Disposition: Discharged to home or Selfcare 08/13/2024 9:00 AM CDT Office Visit [facility] - Internal Medicine - [place] [address] [place] [phone] Gwen Calero, CECY [address] [place] [address] documented as of this encounter Goals Goal [...] Ready to change Department associated with goal: [facility] Steps to [...] documented as of this encounter Care Teams Fisher Mussel Relationship Specialty Start Date End Date Gwen Calero, PAC [address] [place] [address] PCP - General Physician Head Of Precision Targeting 06/12/21 Adam Alejo DO Gastroenterology 01/07/16 Johnna Valente APRN, THERMAL SPRAY OPERATOR Nurse Practitioner Advanced Practice Nurse 01/07/16 Marisela Chaidez, MICHAEL, THERMAL SPRAY OPERATOR Nurse Practitioner Advanced Practice Nurse 01/07/16 Johnathan Pugh MD [address] [place] [address] Obstetrics & Gynecology 08/13/19 documented as of this encounter
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
--- OUTSIDE RECORDS SUMMARY | 2024-06-09 07:52 | XMS_ITS | Encounter Summary ---
Author Organization [facility] Address [address] [place] [address] Phone Care Team Providers Care Rooming House Keeper Name Role Phone Adam Alejo DO Unavailable [phone] Johnna Valente RIPRAP MAN, WORKDAY FINANCIALS CONSULTANT Unavailable [phone] Marisela Chaidez RIPRAP MAN, WORKDAY FINANCIALS CONSULTANT Unavailable Johnathan Pugh MD Unavailable [phone] Gwen Calero PAC Primary Care Pro vider Reason for Visit * Reason Comments Anxiety 3 mo f/u Encounter Details Date Type Department Care Team (Late st Contact Info) Description 09/23/2022 9:30 AM CDT Office Visit [facility] - Internal Medicine [place] [address] [place] [phone] Gwen Calero, [facility] [address] [place] [address] Anxiety (Primary Dx); Obesity without serious comorbidity, unspecified classification, unspecified obesity type Discharge Disposition: Discharged to home or Selfcare [...] AM CDT documented as of this encounter Last Filed Vital Signs Vital Sign Reading Time Taken Comments Blood Pressure 130/72 09/23/2022 9:20 AM CDT Pulse 90 09/23/2022 9:20 AM CDT Temperature 36.3 ??C (97.3 ??F) 09/23/2022 9:20 AM CD T Respiratory Rate - - Oxygen Saturation 97% 09/23/2022 9:20 AM CDT Inhaled Oxygen Concentration - - Weight 93.4 kg (206 lb) 09/23/2022 9:20 AM CDT Height 160 cm (5' 3 ) 09/23/2022 9:20 AM CDT Body Mass Index 36.49 09/23/2022 9:20 AM CDT documented in this encounter Progress Notes * Huma Lal CMA - 09/23/2022 9:30 AM CDT Shalonda screened for Social Determinants of Health and screened positive for Social Integration and Stress. After discussion with patient, patient declined resources. * Huma Lal CMA - 09/23/2022 9:30 AM CDT Shalonda Constantino, 37 y.o., female is here for Anxiety (3 mo f/u) Medication Refills: Patient reports/denies need for medication refills. Orders Pended: no Requested Prescriptions No prescriptions requested or ordered in this encounter Home Medications Medication Sig Start Date End Date Taking? Authorizing Provider Marcellam (XANAX) 0.25 MG Tablet TAKE 1 TABLET BY MOUTH TWICE DAILY NEEDED FOR ANXIETY 08/03/22 Yes Gwen Calero PAC busPIRone (BUSPAR) 10 MG Tablet Take 1 Tablet by mouth nightly. 03/26/22 Yes Gwen Calero PAC EluRyng 0.12-0.015 MG/24HR RING INSERT 1 RING VAGINALLY EVERY 3 WEEKS FOR CONTINUOUS USE METHOD OF CONTROL 01/18/22 Yes Sam Barker MD loperamide (IMODIUM) 2 MG Capsule 01/18/22 Sam Barker MD meloxicam (MOBIC) 15 MG Tablet Take 1 Tablet by mouth daily. 09/06/22 Yes Sam Barker MD ondansetron (ZOFRAN-ODT) 4 MG TABLET DISPERSIBLE DISSOLVE 1 TABLET UNDER THE TONGUE EVERY 8 HOURS NEEDED FOR NAUSEA 01/18/22 Yes ProviderSam MD There are no discontinued medications. I have reviewed the home medication list with the patient and have reconciled discrepancies. The list is accurate to the best of my knowledge. Smoking Status: Social History Tobacco Use ??? Smoking status: Former Types: Cigarettes Quit date: 05/08/2016 Years since quittin.3 Passive exposure: Past ??? Smokeless tobacco: Never [...] ??? Cervical Cancer Screening (CCS) Never done Orders Pended: no The following BPA's have been addressed with the patient today: Smoking * Gwen Calero PAC - 09/23/2022 9:30 AM CDT Chief Complaint: Chief Complaint Patient presents with ??? Anxiety 3 mo f/u Assessment/Plan: Diagnoses and all orders for this visit: Anxiety Obesity without serious comorbidity, unspecified classification, unspecified obesity type - Phentermine HCl 15 MG Capsule; Take 1 Capsule by mouth daily for 30 days. Other orders - meloxicam (MOBIC) 15 MG Tablet; Take 1 Tablet by mouth daily. Pt anxiety is controlled on buspar 5 mg nightly Does not need RFs Does have some weight loss concerns Claims she has dieted and exercises but does not lose weight Wanting weight loss med Will Rx phenteramine Cardio risk d/w pt Will only Rx for 3 mo Encouraged diet log and exercise log F/u in 6 wks Offered dietary; pt refused Subjective: Ms. Shalonda Constantino is a 37 y.o. female here today for above. Anxiety check up On buspar 5 mg daily Pt is doing well Does c/o of being overweight Wanting diet pill Refusing dietary due to costs Says she exercises and watches what she eats and can't lose any weight ROS: Review of Systems Psychiatric/Behavioral: The patient is nervous/anxious. All other systems reviewed and are negative. VITAL SIGNS: BP Readings from Last 3 Encounters: 09/23/22 130/72 06/18/22 122/80 03/26/22 110/88 Wt Readings from Last 3 Encounters: 09/23/22 206 lb (93.4 kg) 06/18/22 200 lb (90.7 kg) 03/26/22 194 lb 6.4 oz (88.2 kg) Vitals: 09/23/22 0920 BP: 130/72 BP Location: Left Arm BP Position: Sitting BP Cuff Size: Regular Pulse: 90 Temp: 97.3 ??F (36.3 ??C) TempSrc: Temporal SpO2: 97% Weight: 206 lb (93.4 kg) Height: 5' 3 (1.6 m) Body mass index is 36.49 kg/m??. PHYSICAL EXAM: Physical Exam Vitals reviewed. Constitutional: Appearance: She is obese. HENT: Head: Normocephalic. Cardiovascular: Rate and Rhythm: Regular rhythm. Heart sounds: Normal heart sounds. Pulmonary: Breath sounds: Normal breath sounds. Abdominal: General: Bowel sounds are normal. Palpations: Abdomen is soft. Skin: General: Skin is warm. Neurological: General: [...] Information Return in about 6 months (around 03/25/2023), or 6 wks, for Acute symptom check. LOS Today OFFICE/OP EST LVL 3 LOW [...] given to the patient. Patient (or patient site safety representative) demonstrates verbal understanding of instructions given. [...] st Contact Info) Description 06/19/2024 8:00 AM GOLF COURSE SUPERINTENDENT Appointment [facility] Mammography 1 [place] [address] Gwen Calero PAC [address] [place] [address] Discharge Disposition: Discharged to home or Selfcare 06/19/2024 9:00 AM GOLF COURSE SUPERINTENDENT [facility] 1 [place] [address] Gwen Calero PAC [address] [place] [address] Discharge Disposition: Discharged to home or Selfcare 08/13/2024 9:00 AM CDT Office Visit [facility] - Internal Medicine - [place] [address] [place] [phone] Gwen Calero PAC [address] [place] [address] documented as of this encounter Goals Goal [...] Diagnoses Diagnosis Anxiety- Primary Anxiety state, unspecified Obesity without serious comorbidity, unspecified classification, unspecified obesity type documented in this encounter Additional Health Concerns Assessment Noted Time PHQ-9 Depression Total Score: 12 022 1:00 PM CDT documented as of this encounter Care Teams Rooming House Keeper Relationship Specialty Start Date End Date Gwen Calero PAC [address] [place] [address] PCP - General Physician Group Managing Director 06/12/21 Adma Alejo DO Gastroenterology 01/07/16 Johnna Valente APRN, WORKDAY FINANCIALS CONSULTANT Nurse Practitioner Advanced Practice Nurse 01/07/16 Marisela Chaidez, RIPRAP MAN, WORKDAY FINANCIALS CONSULTANT Nurse Practitioner Advanced Practice Nurse 01/07/16 Johnathan Pugh MD [address] [place] [address] Obstetrics & Gynecology 08/13/19 documented as of this encounter
--- OUTSIDE RECORDS SUMMARY | 2024-06-09 07:53 | XMS_ITS | Encounter Summary ---
Author Organization [facility] Address [address] [place] [address] Phone Care Team Providers Care Purchasing Associate Name Role Phone Adam Alejo Ike DO Unavailable [phone] Johnna Valente DISTRIBUTION SYSTEMS SUPERINTENDENT, PRE ALGEBRA TEACHER Unavailable Marisela Chaidez DISTRIBUTION SYSTEMS SUPERINTENDENT, PRE ALGEBRA TEACHER Unavailable Johnathan Pugh MD Unavailable [phone] Gwen Calero PAC Primary Care Pro vider Reason for Referral * Consult, Test & Initiate Treatment (Routine) - Canceled Specialty Diagnoses / Procedures Referred By Kavon lackey Referred To Contact Gastroenterology Diagnoses Irritable bowel syndrome with diarrhea Gwen Calero, CECY [address] [place] [address] Phone: tel: fax: [facility] - Gastroenterology [facility] [address] [place] [address] Phone: tel: fax: Referral ID Status Reason Start Date Expiration Date V isits Requested Visits Authorized [id number] Canceled 03/26/2022 1 1 Scheduling Instructions Shalonda is being referred for IBS, recurrent diarrhea Please contact patient for scheduling questions or concerns. * Radiology Services (Routine) - Closed Specialty Diagnoses / Procedures Referred By Contac t Referred To Contact Radiology Diagnoses Mass of right axilla Procedures KIRSTEN DIAG RIGHT UNILATERAL DIGITAL W CAD W RACHELL Gwen Calero, PAC [address] [place] [address] Phone: tel: fax: Referral ID Status Reason Start Date Expiration Date Visits Re quested Visits Authorized [id number] Closed 03/26/2022 1 1 * Radiology Services (Routine) - Closed Specialty Diagnoses / Procedures Referred By Kavon lackey Referred To Contact Radiology Diagnoses Mass of right axilla Procedures CT RIGHT UPPER ARM WO CONTRAST Gwen Calero, CECY [address] [place] [address] Phone: tel: fax: Referral ID Status Reason Start Date Expiration Date Visits Re quested Visits Authorized [id number] Closed 03/26/2022 1 1 Reason for Visit * Reason Comments Mass Mass in right armpit Anxiety Medication follow up Encounter Details Date Type Department Care Team (Late st Contact Info) Description 03/26/2022 1:45 PM CDT Office Visit [facility] - Internal Medicine - [place] [address] [place] [address] Gwen Calero PAC [address] [place] [address] ADHD (attention deficit hyperactivity disorder) evaluation (Primary Dx); Mass of right axilla; Well adult exam; Irritable bowel syndrome with diarrhea Discharge Disposition: Discharged to home or Selfcare [...] suspected to have Coronavirus/COVID-19? No / Unsure 03/26/2022 1:40 PM CDT documented as of this encounter Last Filed Vital Signs Vital Sign Reading Time Taken Comments Blood Pressure 110/88 03/26/2022 1:50 PM CDT Pulse 84 03/26/2022 1:50 PM CDT Temperature 36.4 ??C (97.5 ??F) 03/26/2022 1:50 PM CD T Respiratory Rate 12 03/26/2022 1:50 PM CDT Oxygen Saturation 99% 03/26/2022 1:50 PM CDT Inhaled Oxygen Concentration - - Weight 88.2 kg (194 lb 6.4 oz) 03/26/2022 1:50 P M CDT Height 160 cm (5' 3 ) 03/26/2022 1:50 PM CDT Body Mass Index 34.44 03/26/2022 1:50 PM CDT documented in this encounter Progress Notes * Estrella Swann RMA - 03/26/2022 1:45 PM CDT Shalonda Constantino is a 36 y.o. female with current BMI: There is no height or weight on file to calculate BMI. Interventions discussed including: encourage daily physical activity and well- balanced diet. * Estrella Swann RMA - 03/26/2022 1:45 PM CDT Shalonda Constantino, 36 y.o., female is here for Mass (Mass in right armpit) Medication Refills: Patient reports/denies need for medication refills. Orders Pended: no Requested Prescriptions No prescriptions requested or ordered in this encounter Home Medications Medication Sig Start Date End Date Taking? Authorizing Provider busPIRone (BUSPAR) 10 MG Tablet Take 1 Tablet by mouth 2 times daily. 01/27/22 Gwen Calero, CECY Cholecalciferol (Vitamin D3) 2000 UNIT Capsule Take 1 Capsule by mouth daily. YOU MAY BUY THIS OVERTHE COUNTER WITHOUT PRESCRIPTION Patient not taking: No sig reported 11/06/20 Carmen Brown MD EluRyng 0.12-0.015 MG/24HR RING INSERT 1 RING VAGINALLY EVERY 3 WEEKS FOR CONTINUOUS USE METHOD OF CONTROL 01/18/22 ProviderSam MD loperamide (IMODIUM) 2 MG Capsule 01/18/22 Sam Barker MD ondansetron (ZOFRAN-ODT) 4 MG TABLET DISPERSIBLE DISSOLVE 1 TABLET UNDER THE TONGUE EVERY 8 HOURS NEEDED FOR NAUSEA 01/18/22 Provider, MD Sam There are no discontinued medications. I have reviewed the home medication list with the patient and have reconciled discrepancies. The list is accurate to the best of my knowledge. Smoking Status: Social History Tobacco Use ??? Smoking status: Former Smoker Quit date: 05/08/2016 Years since quittin.8 ??? Smokeless tobacco: Never Used ??? Tobacco comment: occasional smoker Vaping Use ??? Vaping Use: Never used Substance Use Topics ??? Alcohol use: Yes Alcohol/week: 9.0 oz Types: 15 Glasses of wine per week Comment: drinks three bottles of wine a week ??? Drug use: No Smoking Cessation Counseling Given: no Health Care Maintenance: Health Maintenance Due Topic Date Due ??? Hepatitis B Immunization (1 of 3 - 3-dose series) Never done ??? SARS-COV-2 Immunization (1) Never done ??? Pap Smear Never done ??? Influenza Immunization (1) 02/04/2022 Orders Pended: no The following BPA's have been addressed with the patient today: BMI, Flu and Pap * Gwen Calero, PAC - 03/26/2022 1:45 PM CDT Chief Complaint: Chief Complaint Patient presents with ??? Mass Mass in right armpit ??? Anxiety Medication follow up Assessment/Plan: Diagnoses and all orders for this visit: ADHD (attention deficit hyperactivity disorder) evaluation Mass of right axilla - CT RIGHT UPPER ARM WO CONTRAST; Future - KIRSTEN DIAG RIGHT UNILATERAL DIGITAL W CAD W RACHELL; Future Well adult exam - CMP (COMPREHENSIVE METABOLIC PANEL); Future - LIPID PANEL; Future - COMPLETE BLOOD COUNT (CBC) WITH DIFF; Future - HEMOGLOBIN A1C W/ ESTIMATED GLUCOSE; Future - THYROID STIMULATING HORMONE (TSH); Future Irritable bowel syndrome with diarrhea - GASTROENTEROLOGY REFERRAL; Future Other orders - busPIRone (BUSPAR) 10 MG Tablet; Take 1 Tablet by mouth nightly. buspar helping; continue IBS history; dietary changes, avoiding triggers Was set to have colonoscopy but cancelled and now feeling she needs Labs when fasting R axilla mass Only palpable at certain body positions U/S results noted Pt to have CT of the arm and mammogram F/u after resulted Preventive care d/w pt otherwise Subjective: Ms. Shalonda Constantino is a 36 y.o. female here today for above. Feels she has a lump in her RIGHT axillary area It has been ultrasounded recently Continues to be present Is tender to touch Does have fibrocystic disease Does not use a lot of caffeine Has been there a few months Changes in size Anxiety depression buspar helping No issues taking ROS: Review of Systems Constitutional: Negative for fever. Musculoskeletal: RIGHT axillary discomfort and palpable mass Psychiatric/Behavioral: Positive for depression. The patient is nervous/anxious. All other systems reviewed and are negative. VITAL SIGNS: BP Readings from Last 3 Encounters: 03/26/22 110/88 01/27/22 128/80 06/12/21 110/80 Wt Readings from Last 3 Encounters: 03/26/22 194 lb 6.4 oz (88.2 kg) 01/27/22 198 lb 1.6 oz (89.9 kg) 06/12/21 204 lb 4.8 oz (92.7 kg) Vitals: 03/26/22 1350 BP: 110/88 BP Location: Left Arm BP Position: Sitting BP Cuff Size: Regular Pulse: 84 Resp: 12 Temp: 97.5 ??F (36.4 ??C) TempSrc: Temporal SpO2: 99% Weight: 194 lb 6.4 oz (88.2 kg) Height: 5' 3 (1.6 m) Body mass index is 34.44 kg/m??. PHYSICAL EXAM: Physical Exam Vitals reviewed. Constitutional: Appearance: Normal appearance. She is obese. HENT: Head: Normocephalic. Cardiovascular: Rate and Rhythm: Regular rhythm. Heart sounds: Normal heart sounds. Pulmonary: Breath sounds: Normal breath sounds. Musculoskeletal: Comments: RIGHT axilla; palpable mass like appearance; golfball size, round, mobile Skin: General: Skin is warm. Neurological: General: [...] Results Component Value Date TSH 1.750 08/10/2020 No results found for: HGBA1C Lab Results Component Value Date CHOLESTEROL 136 08/10/2020 TRIGLYCRIDES 206 (H) 08/10/2020 HDLCHOLESTE 28.0 (L) 08/10/2020 LDL 67 08/10/2020 No results found for: PSASCREEN, PSA, PSAFREE, PSAPCNTFREE, PSATOTAL @MAMMOFINDINGS@ No results found. Recent Procedure Details No resulted procedures found. FOLLOWUP: Follow-up Information Return in about 3 months (around 06/26/2022) for Acute symptom check, 30 MIN EXTENDED VISIT. LOS Today OFFICE/OP EST LVL 3 LOW [...] given to the patient. Patient (or patient automobile rental representative) demonstrates verbal understanding of instructions given. [...] st Contact Info) Description 06/19/2024 8:00 AM CONSTRUCTION SITE CROSSING GUARD [facility] [address] [place] [address] Gwen Calero PAC [address] [place] [address] Discharge Disposition: Discharged to home or Selfcare 06/19/2024 9:00 AM CONSTRUCTION SITE CROSSING GUARD [facility] Ul[facility] [address] [place] [address] Gwen Calero PAC [address] [place] [address] Discharge Disposition: Discharged to home or Selfcare 08/13/2024 9:00 AM CDT Office Visit [facility] - Internal Medicine - [place] [address] [place] [address] Gwen Calero, PAC [address] [place] [address] Scheduled Orders Name Type Priority Associated Diagnoses Orde r Schedule CMP (COMPREHENSIVE METABOLIC PANEL) Lab Routine Well adult exam Expected: 05/07/2022 (Approximate), Expires: 06/05/2022 LIPID PANEL Lab Routine Well adult exam Expected: 05/07/2022 (Approximate), Expires: 06/05/2022 COMPLETE BLOOD COUNT (CBC) WITH DIFF Lab Routine Well adult exam Expected: 05/07/2022 (Approximate), Expires: 06/05/2022 HEMOGLOBIN A1C W/ ESTIMATED GLUCOSE Lab Routine Well adult exam Expected: 05/07/2022 (Approximate), Expires: 06/05/2022 THYROID STIMULATING HORMONE (TSH) Lab Routine Well adult exam Expected: 05/07/2022 (Approximate), Expires: 06/05/2022 CT RIGHT UPPER ARM WO CONTRAST Imaging Routine Mass of right axilla Expected: 03/26/2022, Expires: 05/26/2022 KIRSTEN DIAG RIGHT UNILATERAL DIGITAL W CAD W RACHELL Imaging Routine Mass of right axilla Expected: 03/26/2022, Expires: 06/26/2022 Scheduled Referrals Name Type Priority Associated Diagnoses Order Schedule GASTROENTEROLOGY REFERRAL Outpatient Referral Routine Irritable bowel syndrome with diarrhea Expected: 03/26/2022, Expires: 03/26/2023 documented as of this encounter Goals Goal [...] Department associated with goal: [facility] Steps to achieve goal: [...] as of this encounter Visit Diagnoses Diagnosis ADHD (attention deficit hyperactivity disorder) evaluation- Primary Screening for other specified mental disorders and developmental handicaps Mass of right axilla Well adult exam Routine general medical examination at a health care facility Irritable bowel syndrome with diarrhea Irritable bowel syndrome documented in this encounter Additional Health Concerns Assessment Noted Time PHQ-9 Depression Total Score: 12 022 1:00 PM CDT documented as of this encounter Care Teams Purchasing Associate Relationship Specialty Start Date End Date Gwen Calero PAC [address] [place] [address] PCP - General Physician Stylist Assistant 06/12/21 Adam Alejo DO Gastroenterology 01/07/16 Johnna Valente, MICHAEL, PRE ALGEBRA TEACHER Nurse Practitioner Advanced Practice Nurse 01/07/16 Marisela Chaidez, MICHAEL, PRE ALGEBRA TEACHER Nurse Practitioner Advanced Practice Nurse 01/07/16 Johnathan Pugh MD [address] [place] [address] Obstetrics & Gynecology 08/13/19 documented as of this encounter
--- OUTSIDE RECORDS SUMMARY | 2024-06-09 07:53 | XMS_ITS | Encounter Summary ---
Author Organization [facility] Address [address] [place] [address] Phone Care Team Providers Care Television News Anchor Name Role Phone Adam Alejo DO Unavailable [phone] Johnna Valente PROJECT MANAGEMENT MANAGER, PARTS PICKER Unavailable Marisela Chaidez PROJECT MANAGEMENT MANAGER, PARTS PICKER Unavailable Johnathan Pugh MD Unavailable [phone] Gwen Calero PAC Primary Care Pro vider Reason for Visit * Reason Onset Date Comments Results 05/07/2022 mamm Encounter Details Date Type Department Care Team (Late st Contact Info) Description 05/07/2022 Telephone [facility] - [facility] Medicine - [place] [address] [place] [address] Gwen Calero, [facility] [address] [address] Results (mamm) Social History Tobacco Use Types Packs/Day Years [...] suspected to have Coronavirus/COVID-19? No / Unsure 04/27/2022 8:00 AM DITCH REPAIRER documented as of this encounter Miscellaneous Notes * Telephone Encounter - Estrella Swann RMA - 05/10/2022 4:22 PM DITCH REPAIRER Printed labs out to fax to [facility] our fax is broke so sent to Luba E- mail she will fax also I will fax to [facility] tomorrow . H REPAIRER * Telephone Encounter - Erica Cage RN - 05/10/2022 3:17 PM CST Attempted to call patient with results, no answer at this time. Left message to call back. H REPAIRER * Telephone Encounter - Erica Cage RN - 05/07/2022 3:59 PM CST Attempted to call patient with results, no answer at this time. Left message to call back. H REPAIRER * Telephone Encounter - Meena Fontenot - 05/07/2022 8:34 AM CST Extend lab orders and test results Shalonda would like to go to [facility] for labs but needs orders extended as they have . Also is requesting test results: mammogram & ultrasound. Phone - [phone] after 1:30 pm H REPAIRER documented in this encounter Plan of Treatment Upcoming Encounters Date Type Department Care Team (Late st Contact Info) Description 06/19/2024 8:00 AM DITCH REPAIRER Appointment [facility] Mammography [address] [place] [address] Gwen Calero, PAC [address] [place] [address] Discharge Disposition: Discharged to home or Selfcare 06/19/2024 9:00 AM DITCH REPAIRER Appointment [facility] Ultrasound 1 [place] [address] Gwen Calero, PAC [address] [place] [address] Discharge Disposition: Discharged to home or Selfcare 08/13/2024 9:00 AM CDT Office Visit [facility] - Internal Medicine - [place] [address] [place] [address] Gwen Calero, PAC [address] [place] [address] documented as of this encounter Goals Goal [...] Department associated with goal: [facility] Steps to [...] documented as of this encounter Care Teams Television News Anchor Relationship Specialty Start Date End Date Gwen Calero, [facility] [address] [place] [address] PCP - General Physician Director Quality Assurance 06/12/21 Adam Alejo DO Gastroenterology 01/07/16 Johnna Valente APRN, PARTS PICKER Nurse Practitioner Advanced Practice Nurse 01/07/16 Marisela Chaidez, MICHAEL, PARTS PICKER Nurse Practitioner Advanced Practice Nurse 01/07/16 Johnathan Pugh MD [address] [place] [address] Obstetrics & Gynecology 08/13/19 documented as of this encounter
--- OUTSIDE RECORDS SUMMARY | 2024-06-09 07:53 | XMS_ITS | Encounter Summary ---
Author Organization [employer] Care Team Providers Care Hub Borer Name Role Phone Adam Alejo DO Unavailable [phone] Johnna Valente CAMOUFLAGE SPECIALIST, TRUCK DRIVING INSTRUCTOR Unavailable Marisela Chaidez CAMOUFLAGE SPECIALIST, TRUCK DRIVING INSTRUCTOR Unavailable Johnathan Pugh MD Unavailable [phone] Gwen Calero PAC Primary Care Pro vider Encounter Details Date Type Department Care Team (Latest Contact Info) Description 03/04/2022 Travel Social History Tobacco Use Types Packs/Day Years Used Date Smoking Tobacco: Former Cigarettes Q uit: 05/08/2016 Smokeless Tobacco: Never Comments:occasional smoker Alcohol Use Standard Drinks/Week Comments Yes 15 (1 standard drink = 0.6 oz pure [...] suspected to have Coronavirus/COVID-19? No / Unsure 03/04/2022 4:16 PM CDT documented as of this encounter Plan of Treatment Upcoming Encounters Date Type Department Care Team (Late st Contact Info) Description 06/19/2024 8:00 AM AUTOMATIC BUFFING WHEEL FORMER Appointment [facility] Mammography 1 [facility] [place] [address] Gwen Calero, PAC [address] [place] [address] Discharge Disposition: Discharged to home or Selfcare 06/19/2024 9:00 AM AUTOMATIC BUFFING WHEEL FORMER Appointment [facility] Ultrasound 1 [facility] [place] [address] Gwen Calero, PAC [address] [place] [address] Discharge Disposition: Discharged to home or Selfcare 08/13/2024 9:00 AM CDT Office Visit [facility] - Internal Medicine - [place] [address] [place] [address] Gwen Calero, PAC [address] [place] [address] documented as of this encounter Goals Goal [...] Ready to change Department associated with goal: [facility] Steps to [...] documented as of this encounter Care Teams Hub Borer Relationship Specialty Start Date End Date Gwen Calero, [facility] [address] [place] [address] PCP - General Physician Crusher Wet Ground Mica 06/12/21 Adam Alejo DO Gastroenterology 01/07/16 Johnna Valente APRN, TRUCK DRIVING INSTRUCTOR Nurse Practitioner Advanced Practice Nurse 01/07/16 Marisela Chaidez, CAMOUFLAGE SPECIALIST, TRUCK DRIVING INSTRUCTOR Nurse Practitioner Advanced Practice Nurse 01/07/16 Johnathan Pugh MD [address] [place] [address] Obstetrics & Gynecology 08/13/19 documented as of this encounter
--- OUTSIDE RECORDS SUMMARY | 2024-06-09 07:53 | XMS_ITS | Encounter Summary ---
Author Organization [facility] Address [address] [place] [address] Phone Care Team Providers Care Leather Piece Inspector Name Role Phone Adam Alejo DO Unavailable [phone] ATTENDANT, MACHINE TENDER Unavailable Marisela Chaidez COURT ATTENDANT, MACHINE TENDER Unavailable Johnathan Pugh MD Unavailable [phone] Gwen Calero PAC Primary Care Pro vider Encounter Details Date Type Department Care Team (Late st Contact Info) Description 05/18/2022 Refill [facility] - Internal Medicine - [place] [address] [place] [address] Gwen Calero, PAC [address] [place] [address] Social History Tobacco Use Types Packs/Day Years [...] Telephone Encounter - Radha Johnson RN - 05/18/2022 4:12 PM CST Medication failed the protocol, provider to review and approve the medication order if appropriate. Requested Prescriptions Pending Prescriptions Disp Refills ALPRAZolam (XANAX) 0.25 MG Tablet 30 Tablet 0 Sig: Take 1 Tablet by mouth 2 times daily as needed for Anxiety. Not Delegated - Benzodiazepines Protocol Failed - 05/18/2022 4:12 PM Failed - This refill cannot be delegated Passed - Visit with relevant provider in past 12 months or upcoming 90 days Recent Visits Date Type Provider Dept 03/26/22 Office Visit Gwen Calero, PAC [facility] [place] 01/27/22 Office Visit Gwen Calero, PAC [facility] [place] 06/12/21 Office Visit Gwen Calero, PAC [facility] [place] Showing recent visits within past 365 days and meeting all other requirements Future Appointments No visits were found meeting these conditions. Showing future appointments within next 90 days and meeting all other requirements S GLAZIER * Telephone Encounter - Huma Lal CMA - 05/18/2022 4:07 PM GLASS GLAZIER req r/f alprazolam Pharm: [facility]ZIER documented in this encounter Plan of Treatment Upcoming Encounters Date Type Department Care Team (Late st Contact Info) Description 06/19/2024 8:00 AM GLASS GLAZIER [facility] 1 [place] [address] Gwen Calero, PAC [address] [place] [address] Discharge Disposition: Discharged to home or Selfcare 06/19/2024 9:00 AM GLASS GLAZIER Appointment [facility] Ultrasound 1 [place] [address] Gwen Calero, PAC [address] [place] [address] Discharge Disposition: Discharged to home or Selfcare 08/13/2024 9:00 AM CDT Office Visit [facility] - Internal Medicine - [place] [address] [place] [address] Gwen Calero, PAC [address] [place] [address] documented as of this encounter Goals Goal [...] Ready to change Department associated with goal: [facility] Steps to [...] documented as of this encounter Care Teams Leather Piece Inspector Relationship Specialty Start Date End Date Gwen Calero PAC [address] [place] [address] PCP - General Physician Block Tester 06/12/21 Adam Alejo DO Gastroenterology 01/07/16 Johnna Valente APRN, MACHINE TENDER Nurse Practitioner Advanced Practice Nurse 01/07/16 Marisela Chaidez, MICHAEL, MACHINE TENDER Nurse Practitioner Advanced Practice Nurse 01/07/16 Johnathan Pugh MD [address] [place] [address] Obstetrics & Gynecology 08/13/19 documented as of this encounter
--- OUTSIDE RECORDS SUMMARY | 2024-06-09 07:53 | XMS_ITS | Encounter Summary ---
Author Organization [facility] Address [address] [place] [address] Phone Care Team Providers Care Liability Claims Adjuster Name Role Phone Adam Alejo DO Unavailable [phone] Johnna Valente MACHINE MAINTENANCE SERVICER, ICER AIR CONDITIONING Unavailable Marisela Chaidez MACHINE MAINTENANCE SERVICER, ICER AIR CONDITIONING Unavailable Johnathan Pugh MD Unavailable [phone] Gwen Calero PAC Primary Care Pro vider Reason for Referral * Radiology Services (Routine) - Closed Specialty Diagnoses / Procedures Referred By Kavon lackey Referred To Contact Radiology Diagnoses Abnormal mammogram Procedures KIRSTEN DIAG BILATERAL DIGITAL W CAD W RACHELL Gwen Calero, PAC [address] [place] [address] Phone: tel: fax: Referral ID Status Reason Start Date Expiration Date Visits Re quested Visits Authorized [id number] Closed 03/29/2022 1 1 Encounter Details Date Type Department Care Team (Late st Contact Info) Description 03/29/2022 Telephone [facility] - Internal Medicine - [place] [address] [place] [address] Gwen Calero, PAC [address] [place] [address] Social History Tobacco Use Types Packs/Day [...] PM CDT documented as of this encounter Miscellaneous Notes * Telephone Encounter - Gwen Calero PAC - 03/29/2022 5:11 PM CDT ----- Message from NERISSA Barillas sent at 03/29/2022 9:34 AM CDT ----- Good morning, Can you please change the order for Shalonda to a Bilateral as she needs to do a baseline mamm per theradiologist protocols. [id number] and [id number]. Thanks, Janet Ghotra documented in this encounter Plan of Treatment Upcoming Encounters Date Type Department Care Team (Late st Contact Info) Description 06/19/2024 8:00 AM SOLAR ENERGY ADVISOR Appointment [facility] Mammography 1 [place] [address] Gwen Calero PAC [address] [place] [address] Discharge Disposition: Discharged to home or Selfcare 06/19/2024 9:00 AM SOLAR ENERGY ADVISOR Appointment [facility] Ultrasound [address] [place] [address] Gwen Calero, PAC [address] [place] [address] Discharge Disposition: Discharged to home or Selfcare 08/13/2024 9:00 AM CDT Office Visit [facility] - Internal Medicine - [place] [address] [place] [address] Gwen Calero, PAC [address] [place] [address] documented as of this encounter Goals Goal [...] Ready to change Department associated with goal: [facility] Steps [...] documented as of this encounter Results * KIRSTEN DIAG BILATERAL DIGITAL W CAD W RACHELL (04/27/2022 8:41 AM SOLAR ENERGY ADVISOR) Anatomical Region Laterality Modality breast Bilateral Mammography 04/27/2022 8:27 AM SOLAR ENERGY ADVISOR Narrative 04/27/2022 11:09 AM SOLAR ENERGY ADVISOR - KIRSTEN DIAG BILATERAL DIGITAL W CAD W RACHELL - KIRSTEN US BREAST LIMITED RT BILATERAL DIGITAL DIAGNOSTIC MAMMOGRAM 3D/2D WITH CAD WITH MEDIOLATERAL OBLIQUE CRANIOCAUDAL AND TARGETED RIGHT ULTRASOUND: 04/27/2022 The study was acquired using digital technology and interpreted from soft copy. Current study was also evaluated with ICAD version 7.2. 2D digital mammographic views, as well as 3D digital tomosynthesis were performed in the CC and MLO projections. ?? CLINICAL: Diagnostic study. Baseline. Palpable lump right axilla, increasing in size and painful over past 6 months. Right upper extremity ultrasound performed for this area in May 2020 at [facility]. No personal history of cancer. No family history of breast cancer. Palpable lump right breast evaulted with ultrasound. ?? COMPARISONS: Comparison is made to exam dated: ??05/26/2020 [facility]. ?? BREAST TISSUE:The tissue of both breasts is heterogeneously dense. This may lower the sensitivity of mammography. ?? FINDINGS: ?? DIAGNOSTIC BILATERAL MAMMOGRAM A marker is placed at the site of the palpable focus. ??No mammographic abnormalities appreciated associated with the marker. ?? No significant masses or calcifications are seen in either breast on the mammogram. ??TARGETED RIGHT BREAST ULTRASOUND Targeted right breast ultrasound was performed in the region of interest as indicated by the patient. ??This correlates at the 10 o'clock position 18 cm from the nipple. ??Normal lymph nodes are identified. ??No suspicious sonographic findings are noted. IMPRESSION: OVERALL STUDY BIRADS: 1 NEGATIVE There is no mammographic or sonographic evidence of malignancy. ??The palpable abnormality should be managed clinically. ?? A 4 year screening mammogram is recommended. ?? The results and recommendations were discussed with the patient. Electronically signed by: Tameka Cabrera M.D. ? ab/:04/27/2022 09:06:59 ?? Trailer Tank Truck Driver(s): Liya ?? RT Hugo(Francisco)(M), [facility]; Lynn ?? MIMI Singh, [facility] letter sent: Normal Exam Abnormal History ?? Reading location: [facility] OVERALL STUDY BIRADS: 1 Negative Procedure Note Tameka Cabrera MD - 04/27/2022 - KIRSTEN DIAG BILATERAL DIGITAL W CAD W RACHELL - KIRSTEN US BREAST LIMITED RT BILATERAL DIGITAL DIAGNOSTIC MAMMOGRAM 3D/2D WITH CAD WITH MEDIOLATERAL OBLIQUE CRANIOCAUDAL AND TARGETED RIGHT ULTRASOUND: 04/27/2022 The study was acquired using digital technology and interpreted from soft copy. Current study was also evaluated with ICAD version 7.2. 2D digital mammographic views, as well as 3D digital tomosynthesis were performed in the CC and MLO projections. CLINICAL: Diagnostic study. Baseline. Palpable lump right axilla, increasing in size and painful over past 6 months. Right upper extremity ultrasound performed for this area in May 2020 at [facility]. No personal history of cancer. No family history of breast cancer. Palpable lump right breast evaulted with ultrasound. COMPARISONS: Comparison is made to exam dated: 05/26/2020 [facility]. BREAST TISSUE:The tissue of both breasts is heterogeneously dense. This may lower the sensitivity of mammography. FINDINGS: DIAGNOSTIC BILATERAL MAMMOGRAM A marker is placed at the site of the palpable focus. No mammographic abnormalities appreciated associated with the marker. No significant masses or calcifications are seen in either breast on the mammogram. TARGETED RIGHT BREAST ULTRASOUND Targeted right breast ultrasound was performed in the region of interest as indicated by the patient. This correlates at the 10 o'clock position 18 cm from the nipple. Normal lymph nodes are identified. No suspicious sonographic findings are noted. IMPRESSION: OVERALL STUDY BIRADS: 1 NEGATIVE There is no mammographic or sonographic evidence of malignancy. The palpable abnormality should be managed clinically. A 4 year screening mammogram is recommended. The results and recommendations were discussed with the patient. Electronically signed by: Tameka Cabrera M.D. ab/:04/27/2022 09:06:59 Trailer Tank Truck Driver(s): RT Adelaida(R)(M), [facility]; Lynn Singh RDMS, [facility] letter sent: Normal Exam Abnormal History Reading location: [facility] OVERALL STUDY BIRADS: 1 Negative Gwen Calero PAC IMG MAMMO ORDERAB LES Final Result documented in this encounter Visit Diagnoses Diagnosis Abnormal mammogram- Primary Abnormal mammogram, unspecified Abnormal mammogram Abnormal mammogram, unspecified documented in this encounter Additional Health Concerns Assessment Noted Time PHQ-9 Depression Total Score: 12 022 1:00 PM CDT documented as of this encounter Care Teams Liability Claims Adjuster Relationship Specialty Start Date End Date Gwen Calero PAC [address] [place] [address] PCP - General Physician Forensic Identification Specialist 06/12/21 Adam Alejo DO Gastroenterology 01/07/16 Johnna Valente APRN, [employer] Nurse Practitioner Advanced Practice Nurse 01/07/16 Marisela Chaidez, MICHAEL, [employer] Nurse Practitioner Advanced Practice Nurse 01/07/16 Johnathan Pugh MD [address] [place] [address] Obstetrics & Gynecology 08/13/19 documented as of this encounter
--- OUTSIDE RECORDS SUMMARY | 2024-06-09 07:53 | XMS_ITS | Encounter Summary ---
Author Organization [employer] Care Team Providers Care Cma Or Lpn Name Role Phone Adam Alejo DO Unavailable [phone] Johnna Valente BALLROOM DANCE INSTRUCTOR, CONSULTING PROJECT DIRECTOR Unavailable [phone] Marisela Chaidez BALLROOM DANCE INSTRUCTOR, CONSULTING PROJECT DIRECTOR Unavailable Johnathan Pugh MD Unavailable [phone] Gwen Calero PAC Primary Care Pro vider Encounter Details Date Type Department Care Team (Latest Contact Info) Description 03/26/2022 Travel Social History Tobacco Use Types Packs/Day [...] st Contact Info) Description 06/19/2024 8:00 AM TITLE 1 TUTOR Appointment [facility] Mammography 1 [facility] [place] [address] Gwen Calero, PAC [address] [place] [address] Discharge Disposition: Discharged to home or Selfcare 06/19/2024 9:00 AM TITLE 1 TUTOR Appointment [facility] Ultrasound 1 [facility] [place] [address] Gwen Calero, PAC [address] [place] [address] Discharge Disposition: Discharged to home or Selfcare 08/13/2024 9:00 AM CDT Office Visit [facility] - Internal Medicine - [place] [address] [place] [address] Gwen Calero, PAC [address] [place] [address] documented as of this encounter Goals Goal [...] Ready to change Department associated with goal: [facility] Steps to [...] documented as of this encounter Care Teams Cma Or Lpn Relationship Specialty Start Date End Date Gwen Calero, [facility] [address] [place] [address] PCP - General Physician Stitcher Set Up Operator Automatic 06/12/21 Adam Alejo DO Gastroenterology 01/07/16 Johnna Valente APRN, CONSULTING PROJECT DIRECTOR Nurse Practitioner Advanced Practice Nurse 01/07/16 Marisela Chaidez, BALLROOM DANCE INSTRUCTOR, CONSULTING PROJECT DIRECTOR Nurse Practitioner Advanced Practice Nurse 01/07/16 Johnathan Pugh MD [address] [place] [address] Obstetrics & Gynecology 08/13/19 documented as of this encounter
--- OUTSIDE RECORDS SUMMARY | 2024-06-09 07:53 | XMS_ITS | Encounter Summary ---
Author Organization [facility] Address [address] [place] [address] Phone Care Team Providers Care Fur Tanner Name Role Phone Adam Alejo DO Unavailable [phone] Johnna Valente PROC TECH, WEB DATABASE DEVELOPER Unavailable Marisela Chaidez PROC TECH, WEB DATABASE DEVELOPER Unavailable Johnathan Pugh MD Unavailable [phone] Gwen Calero PAC Primary Care Pro vider Encounter Details Date Type Department Care Team (Late st Contact Info) Description 04/08/2022 Telephone [facility] - [place] [address] [place] [address] Gwen Calero, PAC [address] [place] [address] Social History Tobacco Use Types Packs/Day Years Used Date Smoking Tobacco: Former Cigarettes Q uit: 05/08/2016 Smokeless Tobacco: Never Comments:occasional smoker Alcohol Use Standard Drinks/Week Comments Yes 6 (1 standard drink = 0.6 oz pure alcohol) drinks three bottles of wine a week PHQ-2 Answer Date Recorded Total Score - Questions 1-9 01/05 Education Answer Date Recorded What is [...] Telephone Encounter - Gwen Calero PAC - 04/08/2022 12:07 PM CDT Daughter of Lynne Diamond who is in hospital and getting taken off life support Pt taking anxiety med PRN for this documented in this encounter Plan of Treatment Upcoming Encounters Date Type Department Care Team (Late st Contact Info) Description 06/19/2024 8:00 AM ENVIRONMENTAL EPIDEMIOLOGIST [facility] M[facility] 1 [place] [address] Gwen Calero, PAC [address] [place] [address] Discharge Disposition: Discharged to home or Selfcare 06/19/2024 9:00 AM ENVIRONMENTAL EPIDEMIOLOGIST [facility] [address] [place] [address] Gwen Calero, PAC [address] [place] [address] Discharge Disposition: Discharged to home or Selfcare 08/13/2024 9:00 AM CDT [facility] - [place] [address] [place] [address] Gwen Calero, PAC [address] [place] [address] documented as of this encounter Goals Goal [...] change Department associated with goal: [facility] Steps to achieve [...] documented as of this encounter Care Teams Fur Tanner Relationship Specialty Start Date End Date Gwen Calero PAC [address] [place] [address] PCP - General Physician Clarity Specialists 06/12/21 Adam Alejo DO Gastroenterology 01/07/16 Johnna Valente, PROC TECH, WEB DATABASE DEVELOPER Nurse Practitioner Advanced Practice Nurse 01/07/16 Marisela Chaidez, MICHAEL, WEB DATABASE DEVELOPER Nurse Practitioner Advanced Practice Nurse 01/07/16 Johnathan Pugh MD [address] [facility] [address] [facility] [address] [place] [address] Obstetrics & Gynecology 08/13/19 documented as of this encounter
--- OUTSIDE RECORDS SUMMARY | 2024-06-09 07:53 | XMS_ITS | Encounter Summary ---
Author Organization [facility] Address [address] [place] [address] Phone Care Team Providers Care Knowledge Architect Name Role Phone Adam Alejo DO Unavailable [phone] Johnna Valente KINESIOTHERAPIST, CAR WIPER Unavailable Marisela Chaidez KINESIOTHERAPIST, CAR WIPER Unavailable Johnathan Pugh MD Unavailable [phone] Gwen Calero PAC Primary Care Pro vider Reason for Visit * Reason Onset Date Comments Medication Management 04/01/2022 Encounter Details Date Type Department Care Team (Late st Contact Info) Description 04/01/2022 Telephone [facility] - [place] [address] [place] [address] Gwen Calero, [facility] [address] [facility] [place] [address] Medication Management Social History Tobacco [...] Telephone Encounter - Gwen Calero PAC - 04/01/2022 11:49 AM CDT Short term yes Xanax PRN; limited supply * Telephone Encounter - Tin September - 04/01/2022 10:02 AM CDT Patient called, said her mom is in the ICU and not doing very well. Patient said her anxiety is awful and she is struggling and asked if you will call her in a low dose of anxiety medication. Call back # [phone] Pharmacy: [facility] in [facility] documented in this encounter Plan of Treatment Upcoming Encounters Date Type Department Care Team (Late st Contact Info) Description 06/19/2024 8:00 AM FAMILY MANAGER [facility] 1 [place] [address] Gwen Calero, PAC [address] [place] [address] Discharge Disposition: Discharged to home or Selfcare 06/19/2024 9:00 AM FAMILY MANAGER [facility] [address] [place] [address] Gwen Calero, PAC [address] [place] [address] Discharge Disposition: Discharged to home or Selfcare 08/13/2024 9:00 AM CDT Office Visit [facility] - Internal Medicine - [place] [address] [place] [address] Gwen Calero, CECY [address] [place] [address] documented as of this encounter Goals Goal [...] Ready to change Department associated with goal: [facility] Steps to achieve [...] documented as of this encounter Care Teams Knowledge Architect Relationship Specialty Start Date End Date Gwen Calero, CECY [address] [place] [address] PCP - General Physician Directory Clerk 06/12/21 Adam Alejo DO Gastroenterology 01/07/16 Johnna Valente, KINESIOTHERAPIST, CAR WIPER Nurse Practitioner Advanced Practice Nurse 01/07/16 Marisela Chaidez, MICHAEL, CAR WIPER Nurse Practitioner Advanced Practice Nurse 01/07/16 Johnathan Pugh MD [address] [place] [address] Obstetrics & Gynecology 08/13/19 documented as of this encounter
--- OUTSIDE RECORDS SUMMARY | 2024-06-09 07:53 | XMS_ITS | Encounter Summary ---
Author Organization [facility] Address [address] [place] [address] Phone Care Team Providers Care Garment Manufacturer Name Role Phone Adam Alejo DO Unavailable [phone] Johnna Valente MORNING SHOW HOST, GLOBAL COMPENSATION MANAGER Unavailable [phone] Marisela Chaidez MORNING SHOW HOST, GLOBAL COMPENSATION MANAGER Unavailable Johnathan Pugh MD Unavailable [phone] Gwen Calero PAC Primary Care Pro vider Encounter Details Date Type Department Care Team (Late st Contact Info) Description 02/11/2022 Telephone [facility] - [place] [address] [place] [address] Gwen Calero, PAC [address] [place] [address] Social History Tobacco Use Types Packs/Day Years Used Date Smoking Tobacco: Former Cigarettes Q uit: 05/08/2016 Smokeless Tobacco: Never Comments:occasional smoker Alcohol Use Standard Drinks/Week Comments Yes 0 (1 standard drink = 0.6 oz pur e alcohol) socially PHQ-2 Answer Date Recorded Total Score - Questions 1-9 01/05 Education Answer Date Recorded What is the highest level of school you have completed or the highest degree you have received? Associate degree: occupational, technical, or vocational program 09/24/2020 Sexually Active Control Partners Comments Yes Male Comments No Sex and Gender Information Value Date Recorded Sex Assigned at Not on file Legal Sex Female 10:47 AM CDT Gender Identity Not on file Sexual Orientation Not on file COVID-19 Exposure Response Date Recorded In the last 10 days, have yo u been in contact with someone who was confirmed or suspected to have Coronavirus/COVID-19? No / Unsure 02/05/2022 8:43 AM CDT documented as of this encounter Miscellaneous Notes * Telephone Encounter - Estrella Swann RMA - 02/11/2022 2:35 PM CDT Called and left a VM for patient to call me back . * Telephone Encounter - Estrella Swann RMA - 02/11/2022 2:35 PM CDT Sent letter * Telephone Encounter - Erica Cage RN - 02/11/2022 12:59 PM CDT ----- Message from CECY Kunz sent at 02/11/2022 12:48 PM CDT ----- Liver US- No significant findings F/u with PCP if sx persist documented in this encounter Plan of Treatment Upcoming Encounters Date Type Department Care Team (Late st Contact Info) Description 06/19/2024 8:00 AM LEGAL ANALYST Appointment [facility] Mammography 1 [place] [address] Gwen Calero, PAC [address] [place] [address] Discharge Disposition: Discharged to home or Selfcare 06/19/2024 9:00 AM LEGAL ANALYST [facility] 1 [place] [address] Gwen Calero, PAC [address] [place] [address] Discharge Disposition: Discharged to home or Selfcare 08/13/2024 9:00 AM CDT [facility] - [place] [address] [place] [address] Gwen Calero, PAC [address] [facility] [place] [address] documented as of this encounter Visit Diagnoses Not on filedocumented in this encounter Additional Health Concerns Assessment Noted Time PHQ-9 Depression Total Score: 12 022 1:00 PM CDT documented as of this encounter Care Teams Garment Manufacturer Relationship Specialty Start Date End Date Gwen Calero, PAC [address] [place] [address] PCP - General Physician Electronic Warfare Operator 06/12/21 Adam Alejo DO Gastroenterology 01/07/16 Johnna Valetne APRN, GLOBAL COMPENSATION MANAGER Nurse Practitioner Advanced Practice Nurse 01/07/16 Marisela Chaidez APRN, GLOBAL COMPENSATION MANAGER Nurse Practitioner Advanced Practice Nurse 01/07/16 Johnathan Pugh MD [address] [place], [place] [id number] Obstetrics & Gynecology 08/13/19 documented as of this encounter
--- OUTSIDE RECORDS SUMMARY | 2024-06-09 07:53 | XMS_ITS | Encounter Summary ---
Author Organization [facility] Address [address] [place] [address] Phone Care Team Providers Care Bacteriologist Food Name Role Phone Adam Alejo DO Unavailable [phone] Johnna Valente OFFICE MACHINE SERVICER, CELLAR HAND Unavailable Marisela Chaidez OFFICE MACHINE SERVICER, CELLAR HAND Unavailable Johnathan Pugh MD Unavailable [phone] Gwen Calero PAC Primary Care Pro vider Reason for Visit * Radiology Services (Routine) - Closed Specialty Diagnoses / Procedures Referred By Kavon lackey Referred To Contact Radiology Diagnoses Abnormal mammogram Procedures KIRSTEN US BREAST LIMITED RT KIRSTEN US BREAST LIMITED NEGRITA Gwen Calero, PAC [address] [place] [address] Phone: tel: fax: Referral ID Status Reason Start Date Expiration Date Visits Re quested Visits Authorized [id number] Closed 03/29/2022 1 1 Encounter Details Date Type Department Care Team (Latest Contact Info) Description 04/27/2022 8:49 AM FUR TINTER - 04/27/2022 11:59 PM FUR TINTER Hospital Encounter [facility] Ultrasound 1 [place] [address] Gwen Calero, PAC [address] [place] [id number] Discharge Disposition: Discharged to home or Selfcare [...] Coronavirus/COVID-19? No / Unsure 04/27/2022 8:00 AM FUR TINTER documented as of this encounter Medications at Time of Discharge ALPRAZolam (XANAX) 0.25 MG TabletIndications :Anxiety Take 1 Tablet by mouth 2 times daily as needed for Anxiety. 30 Tablet 04/01/2022 2 busPIRone (BUSPAR) 10 MG Tablet Take 1 Tablet by mouth nightly. 90 Tablet 2 03/26/2022 4 EluRyng 0.12-0.015 MG/24HR RING INSERT 1 RING VAGINALLY EVERY 3 WEEKS FOR CONTINUOUS USE METHOD OF CONTROL 01/18/2022 4 loperamide (IMODIUM) 2 MG Capsule 01/18/2022 3 ondansetron (ZOFRAN-ODT) 4 MG TABLET DISPERSIBLE DISSOLVE 1 TABLET UNDER THE TONGUE EVERY 8 HOURS NEEDED FOR NAUSEA 01/18/2022 3 documented as of this encounter Plan of Treatment Upcoming Encounters Date Type Department Care Team (Late st Contact Info) Description 06/19/2024 8:00 AM FUR TINTER Appointment [facility] 1 [place] [address] Gwen Calero, PAC [address] [place] [address] Discharge Disposition: Discharged to home or Selfcare 06/19/2024 9:00 AM FUR TINTER Appointment [facility] Ultrasound [address] [place] [address] Gwen Calero, PAC [address] [place] [address] Discharge Disposition: Discharged to home or Selfcare 08/13/2024 9:00 AM CDT Office Visit [facility] - Internal Medicine - [place] [address] [place] [id number] Gwen Calero, PAC [address] [place] [id number] documented as of this encounter Goals Goal [...] Ready to change Department associated with goal: [facility] Steps to achieve goal: [...] Procedure Name Priority Date/Time Associated Diagnosis Comments [facility] US BREAST LIMITED RT Routine 04/27/2022 9:00 AM FUR TINTER Abnormal mammogram documented in this encounter Results * KIRSTEN US BREAST LIMITED RT (04/27/2022 9:00 AM FUR TINTER) Anatomical Region Laterality Modality breast Right Ultrasound 04/27/2022 8:27 AM FUR TINTER Narrative 04/27/2022 11:09 AM FUR TINTER - KIRSTEN DIAG BILATERAL DIGITAL W CAD W RACHELL - KIRSTEN US BREAST LIMITED RT BILATERAL DIGITAL DIAGNOSTIC MAMMOGRAM 3D/2D WITH CAD WITH MEDIOLATERAL OBLIQUE CRANIOCAUDAL AND TARGETED RIGHT ULTRASOUND: 04/27/2022 The study was acquired using digital technology and interpreted from soft copy. Current study was also evaluated with Flickme version 7.2. 2D digital mammographic views, as [...] Comparison is made to exam dated: ??05/26/2020 [facility]. ?? BREAST TISSUE:The tissue of both breasts [...] Tameka Cabrera M.D. ? ab/:04/27/2022 09:06:59 ?? [employer] Machine Operator(s): Liya ?? RT Hugo(R)(M), [facility]; Lynn ?? MIMI Singh, [facility] letter sent: Normal Exam Abnormal History ?? Reading location: [facility] STUDY BIRADS: 1 Negative Procedure Note Tameka Cabrera MD - 04/27/2022 - KIRSTEN DIAG BILATERAL DIGITAL W CAD W RACHELL - KIRSTEN US BREAST LIMITED RT BILATERAL DIGITAL DIAGNOSTIC MAMMOGRAM 3D/2D WITH CAD WITH MEDIOLATERAL OBLIQUE CRANIOCAUDAL AND TARGETED RIGHT ULTRASOUND: 04/27/2022 The study was acquired using digital technology and interpreted from soft copy. Current study was also evaluated with Flickme version 7.2. 2D digital mammographic views, as well as 3D digital tomosynthesis were performed in the CC and MLO projections. CLINICAL: Diagnostic study. Baseline. Palpable lump right axilla, increasing in size and painful over past 6 months. Right upper extremity ultrasound performed for this area in May 2020 at [facility]. No personal history of cancer. No family history of breast cancer. Palpable lump right breast evaulted with ultrasound. COMPARISONS: Comparison is made to exam dated: 05/26/2020 [facility]. BREAST TISSUE:The tissue of both breasts is [...] signed by: Tameka Cabrera M.D. ab/:04/27/2022 09:06:59 [employer] Operator(s): Liya Hugo, RT(R)(M), [facility]; Lynn Singh RDMS, [facility] letter sent: Normal Exam Abnormal History Reading location: [facility] STUDY BIRADS: 1 Negative Gwen Calero PAC IMG MAMMO ORDERAB LES Final Result documented in this encounter Visit Diagnoses Diagnosis Abnormal mammogram Abnormal mammogram, unspecified documented in this encounter Additional Health Concerns Assessment Noted Time PHQ-9 Depression Total Score: 12 022 1:00 PM CDT documented as of this encounter Care Teams Bacteriologist Food Relationship Specialty Start Date End Date Gwen Calero, CECY [address] [place] [id number] PCP - General Physician Crosscutter 06/12/21 Adam Alejo DO Gastroenterology 01/07/16 Johnna Valente APRN, CELLAR HAND Nurse Practitioner Advanced Practice Nurse 01/07/16 Marisela Chaidez, MICHAEL, CELLAR HAND Nurse Practitioner Advanced Practice Nurse 01/07/16 Johnathan Pugh MD [address] [place] [address] Obstetrics & Gynecology 08/13/19 documented as of this encounter
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
--- OUTSIDE RECORDS SUMMARY | 2024-06-09 07:53 | XMS_ITS | Encounter Summary ---
Author Organization [facility] Address [address] [place] [address] Phone Care Team Providers Care Flatwork Feeder Name Role Phone Adam Alejo DO Unavailable [phone] Johnna Valente BUFFET RUNNER, TRAIN CONTROL TECHNICIAN Unavailable Marisela Chaidez BUFFET RUNNER, TRAIN CONTROL TECHNICIAN Unavailable Johnathan Pugh MD Unavailable [phone] Gwen Calero PAC Primary Care Pro vider Reason for Visit * Reason Onset Date Comments Advice Only 05/10/2022 Results 05/10/2022 Encounter Details Date Type Department Care Team (Late st Contact Info) Description 05/10/2022 Telephone [facility] - Internal Medicine - [place] [address] [place] [address] Gwen Calero, [facility] [address] [place] [address] Advice Only; Results Social History Tobacco Use Types Packs/Day [...] Coronavirus/COVID-19? No / Unsure 04/27/2022 8:00 AM PEDIATRIC UROLOGIST documented as of this encounter Miscellaneous Notes * Telephone Encounter - Radha Johnson RN - 05/11/2022 9:58 AM CST Pt aware of results and verbalizes understanding. Pt states she is still having pain and issues with palpable mass and would like appointment to assess and evaluate. Pt states she will make an appointment via [facility] Lab orders were faxed to [facility] Forwarding to provider for FYI ATRIC UROLOGIST * Telephone Encounter - Gwen Calero PAC - 05/10/2022 3:35 PM CST Also, pt has been called twice by nurse and now once by myself to result mammogram results; no answer; VM left Also, pt was to have labs done Oct at [facility]. What is the status of this? ATRIC UROLOGIST * Telephone Encounter - Radha Johnson RN - 05/10/2022 3:15 PM CST Pt would like to speak to credit control officer. Forwarding to Luba to please call pt. ATRIC UROLOGIST documented in this encounter Plan of Treatment Upcoming Encounters Date Type Department Care Team (Late st Contact Info) Description 06/19/2024 8:00 AM PEDIATRIC UROLOGIST Appointment [facility] Mammography 1 [place] [address] Gwen Calero, PAC [address] [place] [address] Discharge Disposition: Discharged to home or Selfcare 06/19/2024 9:00 AM PEDIATRIC UROLOGIST Appointment [facility] Ultrasound 1 [facility] [place] [address] Gwen Calero, PAC [address] [place] [address] Discharge Disposition: Discharged to home or Selfcare 08/13/2024 9:00 AM CDT Office Visit [facility] - Internal Medicine - [place] [address] [facility] [address] Gwen Calero, PAC [address] [place] [address] documented as of this encounter Goals Goal [...] documented as of this encounter Care Teams Flatwork Feeder Relationship Specialty Start Date End Date Gwen Calero, PAC [address] [place] [address] PCP - General Physician Inspector Chief 06/12/21 Adam Alejo DO Gastroenterology 01/07/16 Johnna Valente BUFFET RUNNER, TRAIN CONTROL TECHNICIAN Nurse Practitioner Advanced Practice Nurse 01/07/16 Marisela Chaidez, MICHAEL, TRAIN CONTROL TECHNICIAN Nurse Practitioner Advanced Practice Nurse 01/07/16 Johnathan Pugh MD [address] [place] [address] Obstetrics & Gynecology 08/13/19 documented as of this encounter
--- OUTSIDE RECORDS SUMMARY | 2024-06-09 07:53 | XMS_ITS | Encounter Summary ---
Author Organization [facility] Address [address] [place] [address] [place] [address] Phone Care Team Providers Care Underwriting Support Specialist Name Role Phone Adam Alejo DO Unavailable [phone] Johnna Valente RECORD CENTER SPECIALIST, DIRECTOR OF STRATEGIC SOURCING Unavailable [phone] Marisela Chaidez RECORD CENTER SPECIALIST, DIRECTOR OF STRATEGIC SOURCING Unavailable Johnathan Pugh MD Unavailable [phone] Gwen Calero PAC Primary Care Pro vider Reason for Referral * Radiology Services (Routine) - Closed Specialty Diagnoses / Procedures Referred By Kavon lackey Referred To Contact Radiology Diagnoses Abnormal mammogram Procedures KIRSTEN DIAG BILATERAL DIGITAL W CAD W Gewn Allison, PAC [address] [place] [address] Phone: tel: fax: Referral ID Status Reason Start Date Expiration Date Visits Re quested Visits Authorized [id number] Closed 03/29/2022 1 1 FOUNDER & CEO Reason for Visit * Radiology Services (Routine) - Closed Specialty Diagnoses / Procedures Referred By Kavon lackey Referred To Contact Radiology Diagnoses Abnormal mammogram Procedures KIRSTEN DIAG BILATERAL DIGITAL W CAD W Gwen Allison, PAC [address] [place] [address] Phone: tel: fax: Referral ID Status Reason Start Date Expiration Date Visits Re quested Visits Authorized [id number] Closed 03/29/2022 1 1 Encounter Details Date Type Department Care Team (Latest Contact Info) Description 04/27/2022 8:00 AM CO FOUNDER & CEO - 04/27/2022 8:48 AM CO FOUNDER & CEO Hospital Encounter [facility] Mammography [address] [place] [address] Gwen Calero, PAC [address] [place] [address] Discharge Disposition: Discharged to home or Selfcare [...] Coronavirus/COVID-19? No / Unsure 04/27/2022 8:00 AM CO FOUNDER & CEO documented as of this encounter Medications at [...] st Contact Info) Description 06/19/2024 8:00 AM CO FOUNDER & CEO [facility] 1 [place] [address] Gwen Calero, PAC [address] [place] [address] Discharge Disposition: Discharged to home or Selfcare 06/19/2024 9:00 AM CO FOUNDER & CEO [facility] 1 [place] [address] Gwen Calero, PAC [address] [place] [address] Discharge Disposition: Discharged to home or Selfcare 08/13/2024 9:00 AM CDT Office Visit [facility] - Internal Medicine - [place] [address] [place] [address] Gwen Calero, PAC [address] [place] [address] documented as of this encounter Goals Goal [...] Ready to change Department associated with goal: [facility] Steps to achieve [...] Procedure Name Priority Date/Time Associated Diagnosis Comments KIRSTEN DIAG BILATERAL DIGITAL W CAD W RACHELL Routine 04/27/2022 8:41 AM CO FOUNDER & CEO Abnormal mammogram documented in this encounter Results * KIRSTEN DIAG BILATERAL DIGITAL W CAD W RACHELL (04/27/2022 8:41 AM CO FOUNDER & CEO) Anatomical Region Laterality Modality breast Bilateral Mammography 04/27/2022 8:27 AM CO FOUNDER & CEO Narrative 04/27/2022 11:09 AM CO FOUNDER & CEO - KIRSTEN DIAG BILATERAL DIGITAL W CAD [...] Comparison is made to exam dated: ??05/26/2020 [facility]. ?? BREAST TISSUE:The tissue of both [...] Tameka Cabrera M.D. ? ab/:04/27/2022 09:06:59 ?? Knife Setter(s): Liya ?? RT Hugo(R)(M), [facility]; Lynn ?? MIMI Singh, [facility] letter sent: Normal Exam Abnormal History ?? Reading location: [facility] OVERALL STUDY BIRADS: 1 Negative Procedure Note [...] for this area in May 2020 at [facility]. No personal history of cancer. No family history of breast cancer. Palpable lump right breast evaulted with ultrasound. COMPARISONS: Comparison is made to exam dated: 05/26/2020 [facility]. BREAST TISSUE:The tissue of both breasts is [...] signed by: Tameka Cabrera M.D. ab/:04/27/2022 09:06:59 Knife Setter(s): RT Adelaida(R)(M), [facility]; Lynn Singh RDMS, [facility] letter sent: Normal Exam Abnormal History Reading location: [facility] OVERALL STUDY BIRADS: 1 Negative us Gwen Calero PAC IMG MAMMO ORDERAB LES Final Result documented in this encounter Visit Diagnoses Diagnosis Abnormal mammogram Abnormal mammogram, unspecified documented in this encounter Additional Health Concerns Assessment Noted Time PHQ-9 Depression Total Score: 12 022 1:00 PM CDT documented as of this encounter Care Teams Underwriting Support Specialist Relationship Specialty Start Date End Date Gwen Calero PAC [address] [place] [address] PCP - General Physician Horticulture Superintendent 06/12/21 Adam Alejo DO Gastroenterology 01/07/16 Johnna Valente, RECORD CENTER SPECIALIST, DIRECTOR OF STRATEGIC SOURCING Nurse Practitioner Advanced Practice Nurse 01/07/16 Marisela Chaidez APRN, DIRECTOR OF STRATEGIC SOURCING Nurse Practitioner Advanced Practice Nurse 01/07/16 Johnathan Pugh MD [address] [place] [address] Obstetrics & Gynecology 08/13/19 documented as of this encounter
--- OUTSIDE RECORDS SUMMARY | 2024-06-09 07:53 | XMS_ITS | Encounter Summary ---
Author Organization [employer] Care Team Providers Care Cook House Laborer Name Role Phone Adam Alejo DO Unavailable [phone] Johnna Valente HISTORY FACULTY MEMBER, STOCKLAYER Unavailable [phone] Marisela Chaidez HISTORY FACULTY MEMBER, STOCKLAYER Unavailable Johnathan Pugh MD Unavailable [phone] Gwen Calero PAC Primary Care Pro vider Encounter Details Date Type Department Care Team (Latest Contact Info) Description 02/22/2022 Travel Social History Tobacco Use Types Packs/Day [...] Cosme LCSW documented as of this encounter Plan of Treatment Upcoming Encounters Date Type Department Care Team (Late st Contact Info) Description 06/19/2024 8:00 AM CORE CUTTER AND REAMER [facility] M[facility] 1 [place] [address] Gwen aClero, PAC [address] [place] [address] Discharge Disposition: Discharged to home or Selfcare 06/19/2024 9:00 AM CORE CUTTER AND REAMER [facility] Ul[facility]ound 1 [place] [address] Gwen Calero, PAC [address] [place] [address] Discharge Disposition: Discharged to home or Selfcare 08/13/2024 9:00 AM CDT Office [facility] - Internal [facility] - [place] [address] [place] [address] Gwen Calero, PAC [address] [place] [address] documented as of this encounter Goals Goal Patient Goal Type Associated Problems Recent Progress Patient-Stated? Author wants a quiet brain and to be able to focus on task at hand Behavioral Health Yes Meagan Cosme LCSW Improve attention skills Behavioral Health No Carmelina, Meagan Uche, POSTER Note: Goal/Objective: Increase attention skills. Anticipated Time Frame for Goal Completion: 3 months Goal Reviewed with: patient Readiness to change: Ready to change Department associated with goal: [facility] Steps to achieve [...] documented as of this encounter Care Teams Cook House Laborer Relationship Specialty Start Date End Date Gwen Calero, CECY [address] [place] [address] PCP - General Physician End Worker 06/12/21 Adam Alejo DO Gastroenterology 01/07/16 Johnna Valente, HISTORY FACULTY MEMBER, STOCKLAYER Nurse Practitioner Advanced Practice Nurse 01/07/16 Marisela Chaidez, HISTORY FACULTY MEMBER, STOCKLAYER Nurse Practitioner Advanced Practice Nurse 01/07/16 Johnathan Pugh MD [address] [place] [address] Obstetrics & Gynecology 08/13/19 documented as of this encounter
--- OUTSIDE RECORDS SUMMARY | 2024-06-09 07:53 | XMS_ITS | Encounter Summary ---
Author Organization [employer] Care Team Providers Care Commercial Driver'S License Driver Name Role Phone Adam Alejo DO Unavailable [phone] Johnna Valente ORTHOPEDIC PHYSICAL THERAPIST, ASSOCIATE QUALITY ENGINEER Unavailable [phone] Marisela Chaidez ORTHOPEDIC PHYSICAL THERAPIST, ASSOCIATE QUALITY ENGINEER Unavailable Johnathan Pugh MD Unavailable [phone] Gwen Calero PAC Primary Care Pro vider Encounter Details Date Type Department Care Team (Latest Contact Info) Description 04/27/2022 Travel Social History Tobacco Use Types Packs/Day [...] Coronavirus/COVID-19? No / Unsure 04/27/2022 8:00 AM WOOD BOX MAKER documented as of this encounter Plan of Treatment Upcoming Encounters Date Type Department Care Team (Late Contact Info) Description 06/19/2024 8:00 AM WOOD BOX MAKER Appointment [facility] Mammography 1 [facility] [place] [address] Gwen Calero, PAC [address] [place] [address] Discharge Disposition: Discharged to home or Selfcare 06/19/2024 9:00 AM WOOD BOX MAKER Appointment [facility] Ultrasound 1 [facility] [place] [address] Gwen Calero, PAC [address] [place] [address] Discharge Disposition: Discharged to home or Selfcare 08/13/2024 9:00 AM CDT Office Visit [facility] - Internal Medicine - [place] [address] [place] [address] Gwen Calero, PAC [address] [place] [address] documented as of this encounter Goals Goal [...] Ready to change Department associated with goal: [facility] Steps to achieve goal: [...] documented as of this encounter Care Teams Commercial Driver'S License Driver Relationship Specialty Start Date End Date Gwen Calero, [facility] [address] [place] [address] PCP - General Physician Central Office Equipment Engineer 06/12/21 Adam Alejo DO Gastroenterology 01/07/16 Johnna Valente APRN, ASSOCIATE QUALITY ENGINEER Nurse Practitioner Advanced Practice Nurse 01/07/16 Marisela Chaidez, MICHAEL, ASSOCIATE QUALITY ENGINEER Nurse Practitioner Advanced Practice Nurse 01/07/16 Johnathan Pugh MD [address] [place] [address] Obstetrics & Gynecology 08/13/19 documented as of this encounter
--- OUTSIDE RECORDS SUMMARY | 2024-06-09 07:54 | XMS_ITS | Encounter Summary ---
Author Organization [facility] Address [address] [place] [address] Phone Care Team Providers Care Coupon Redemption Clerk Name Role Phone Carmen Brown MD Primary Care Provider Adam Alejo DO Unavailable [phone] Johnna Valente TURRET LATHE SET UP OPERATOR, DEBURR OPERATOR Unavailable Marisela Chaidez APRN, DEBURR OPERATOR Unavailable Johnathan Pugh MD Unavailable [phone] Encounter Details Date Type Department Care Team (Late st Contact Info) Description 11/20/2020 [facility] - [place] [address] [place] [address] Carmen Brown MD [address] [place] [address] Social History Tobacco Use Types Packs/Day Years Used Date Smoking Tobacco: Former Cigarettes Q uit: 05/08/2016 Smokeless Tobacco: Never Comments:occasional smoker Alcohol Use Standard Drinks/Week Comments Yes 0 (1 standard drink = 0.6 oz pur e alcohol) socially PHQ-2 Answer Date Recorded Total Score - Questions 1-9 15 09/05 Education Answer Date Recorded What is the [...] Exposure Response Date Recorded In the last month, have you been in contact with someone who was confirmed or suspected to have Coronavirus / COVID-19? No / Unsure 11/06/2020 2:27 PM CDT documented as of this encounter Miscellaneous Notes * Telephone Encounter - Oly Jiménez CMA - 11/20/2020 8:43 AM CDT Reorder x-ray. documented in this encounter Plan of Treatment Upcoming Encounters Date Type Department Care Team (Late st Contact Info) Description 06/19/2024 8:00 AM LANOLIN PLANT OPERATOR [facility] 1 [place] [address] Gwen Calero, PAC [address] [place] [address] Discharge Disposition: Discharged to home or Selfcare 06/19/2024 9:00 AM LANOLIN PLANT OPERATOR [facility] [address] [place] [address] Gwen Calero, PAC [address] [place] [address] Discharge Disposition: Discharged to home or Selfcare 08/13/2024 9:00 AM CDT Office [facility] - Internal Medicine - [place] [address] [place] [address] Gwen Calero, PAC [address] [place] [address] Scheduled Orders Name Type Priority Associated Diagnoses Orde r Schedule XR LUMBAR SPINE 2 OR 3 VIEWS Imaging Routine Chronic midline low back pain with bilateral sciatica Expected: 11/20/2020, Expires: 12/20/2020 documented as of this encounter Visit Diagnoses Diagnosis Chronic midline low back pain with bilateral sciatica- Primary documented in this encounter Additional Health Concerns Assessment Noted Time PHQ-9 Depression Total Score: 15 021 11:00 AM CDT documented as of this encounter Care Teams Coupon Redemption Clerk Relationship Specialty Start Date End Date Carmen Brown MD PCP - General Family Medicine 10/28/15 06/11/21 Adam Alejo DO Gastroenterology 01/07/16 Johnna Valente APRN, DEBURR OPERATOR Nurse Practitioner Advanced Practice Nurse 01/07/16 Marisela Chaidez APRN, DEBURR OPERATOR Nurse Practitioner Advanced Practice Nurse 01/07/16 Johnathan Pugh MD [address] [place] [address] Obstetrics & Gynecology 08/13/19 documented as of this encounter
--- OUTSIDE RECORDS SUMMARY | 2024-06-09 07:54 | XMS_ITS | Encounter Summary ---
Author Organization [facility] Address [address] [place] [address] Phone Care Team Providers Care Aircraft Landing Gear Inspector Name Role Phone Carmen Brown MD Primary Care Provider Adam Alejo DO Unavailable [phone] Johnna Valente WOOL HAT FLANGER, AIR AND HYDRONIC BALANCING TECHNICIAN Unavailable Marisela Chadiez APRN, AIR AND HYDRONIC BALANCING TECHNICIAN Unavailable Johnathan Pugh MD Unavailable [phone] Reason for Visit * Reason Onset Date Comments Appointment 10/01/2020 Encounter Details Date Type Department Care Team (Late st Contact Info) Description 10/01/2020 Telephone [facility] - Primary Care - [place] [address] [place] [address] Carmen Brown MD [address] [place] [address] Appointment Social History Tobacco Use Types Packs/Day Years [...] have Coronavirus / COVID-19? No / Unsure 09/24/2020 10:57 AM CDT documented as of this encounter Miscellaneous Notes * Telephone Encounter - Vik Cool CMA - 10/01/2020 8:04 AM CDT Called silvano CEDENO stating to call back to make a 4wk med f/u * Telephone Encounter - Vik Cool CMA - 10/01/2020 8:03 AM CDT ----- Message from Viviane De La Rosa APN, AIR AND HYDRONIC BALANCING TECHNICIAN sent at 09/24/2020 11:18 AM CDT ----- 4 wk med check documented in this encounter Plan of Treatment Upcoming Encounters Date Type Department Care Team (Late st Contact Info) Description 06/19/2024 8:00 AM MEDICAL ASSISTANT PER DIEM [facility] 1 [place] [address] Gwen Calero, PAC [address] [place] [address] Discharge Disposition: Discharged to home or Selfcare 06/19/2024 9:00 AM MEDICAL ASSISTANT PER DIEM [facility] 1 [place] [address] Gwen Calero, PAC [address] [place] [address] Discharge Disposition: Discharged to home or Selfcare 08/13/2024 9:00 AM CDT Office [facility] - Internal Medicine - [place] [address] [place] [address] Gwen Calero, [facility] [address] [place] [address] documented as of this encounter Visit Diagnoses Not on filedocumented in this encounter Additional Health Concerns Assessment Noted Time PHQ-9 Depression Total Score: 15 021 11:00 AM CDT documented as of this encounter Care Teams Aircraft Landing Gear Inspector Relationship Specialty Start Date End Date Carmen Brown MD PCP - General Family Medicine 10/28/15 06/11/21 Adam Alejo DO Gastroenterology 01/07/16 Johnna Valente APRN, AIR AND HYDRONIC BALANCING TECHNICIAN Nurse Practitioner Advanced Practice Nurse 01/07/16 Marisela Chaidez, MICHAEL, AIR AND HYDRONIC BALANCING TECHNICIAN Nurse Practitioner Advanced Practice Nurse 01/07/16 Johnathan Pugh MD [address] [place] [address] Obstetrics & Gynecology 08/13/19 documented as of this encounter
--- OUTSIDE RECORDS SUMMARY | 2024-06-09 07:54 | XMS_ITS | Encounter Summary ---
Author Organization [facility] Address [address] [place] [address] Phone Care Team Providers Care R D Intern Name Role Phone Adam Alejo DO Unavailable [phone] Johnna Valente WINE STEWARD/STEWARDESS, LARRY CAR OPERATOR Unavailable [phone] Marisela Chaidez WINE STEWARD/STEWARDESS, LARRY CAR OPERATOR Unavailable Johnathan Pugh MD Unavailable [phone] Gwen Calero PAC Primary Care Pro vider Reason for Referral * Radiology Services (Routine) - Closed Specialty Diagnoses / Procedures Referred By Kavon lackey Referred To Contact Radiology Diagnoses Upper abdominal pain Procedures US ABDOMEN LIMITED LEVEL 3 THREE ORGAN Jerel Pinedo MD [address] [place] [address] Phone: tel: fax: Referral ID Status Reason Start Date Expiration Date Visits Re quested Visits Authorized [id number] Closed 01/19/2022 1 1 Encounter Details Date Type Department Care Team (Late st Contact Info) Description 01/19/2022 Telephone [facility] - Internal Medicine - [place] [address] [place] [address] Gwen Calero, PAC [address] [place] [address] Social History Tobacco Use Types Packs/Day [...] Telephone Encounter - Radha Johnson RN - 01/19/2022 12:20 PM CDT Pt aware and verbalizes understanding * Telephone Encounter - Jerel Pinedo MD - 01/19/2022 12:09 PM CDT US liver/GB ordered * Telephone Encounter - September - 01/19/2022 9:57 AM CDT Patient was seen at urgent care in [place] yesterday, they believe she is having gallbladder problems and told her to call our office to have an ultra sound of gallbladder ordered. Will have done at [facility] documented in this encounter Plan of Treatment Upcoming Encounters Date Type Department Care Team (Late st Contact Info) Description 06/19/2024 8:00 AM CSO Appointment [facility] Mammography [address] [place] [address] Gwen Calero, PAC [address] [place] [address] Discharge Disposition: Discharged to home or Selfcare 06/19/2024 9:00 AM CSO Appointment [facility] Ultrasound 1 [facility] [place] [address] Gwen Calero, PAC [address] [place] [address] Discharge Disposition: Discharged to home or Selfcare 08/13/2024 9:00 AM CDT Office Visit [facility] - Internal Medicine - [place] [address] [place] [id number] Gwen Calero, PAC [address] [place] [address] documented as of this encounter Results * US LIVER, PANCREAS AND GALLBLADDER (02/05/2022 9:16 AM CDT) Anatomical Region Laterality Modality Abdomen N/A Ultrasound 02/05/2022 7:02 PM CDT Impressions 02/05/2022 7:05 PM CDT IMPRESSION: Negative right upper quadrant ultrasound. ?? Narrative 02/05/2022 7:05 PM CDT EXAM DESCRIPTION: ?? US ABDOMEN LIMITED LEVEL 3 THREE ORGAN REASON FOR STUDY: Upper abdominal pain, unspecified , epigastric pain with diarrhea for 1 year. TECHNIQUE: Ultrasound of the right upper quadrant of the abdomen was performed with grayscale and color Doppler. COMPARISON: None. FINDINGS: PANCREAS: ??Visualized portions of the pancreas are within normal limits. Portions of the pancreatic body and tail are obscured due to bowel gas. LIVER: The liver is normal in echogenicity. ??Liver measures ??14.7 ?? cm. No focal hepatic lesions are seen. Antegrade direction of flow shown in the main portal vein. GALLBLADDER: ??No echogenic gallstones, gallbladder wall thickening, or pericholecystic fluid. No positive sonographic Bergman's sign reported. BILIARY: There is no intrahepatic biliary ductal dilatation. The common bile duct measures ??0.6 ??cm in diameter. RIGHT KIDNEY: Right kidney is ??9.9 ??cm in length. There is no hydronephrosis. The echogenicity is ??normal. OTHER: ??No other significant finding. THIS IS AN ELECTRONICALLY VERIFIED FINAL REPORT 02/05/2022 7:02 PM - Electronically signed by ??Carlos Hogan M.D. CH: CH D: ??02/05/2022 7:02 PM T: ??02/05/2022 7:02 PM Report ID: [id number] Reading Location: ??[id number] Procedure Note Carlos Hogan Jr., MD - 02/05/2022 EXAM DESCRIPTION: US ABDOMEN LIMITED LEVEL 3 THREE ORGAN REASON FOR STUDY: Upper abdominal pain, unspecified , epigastric pain with diarrhea for 1 year. TECHNIQUE: Ultrasound of the right upper quadrant of the abdomen was performed with grayscale and color Doppler. COMPARISON: None. FINDINGS: PANCREAS: Visualized portions of the pancreas are within normal limits. Portions of the pancreatic body and tail are obscured due to bowel gas. LIVER: The liver is normal in echogenicity. Liver measures 14.7 cm. No focal hepatic lesions are seen. Antegrade direction of flow shown in the main portal vein. GALLBLADDER: No echogenic gallstones, gallbladder wall thickening, or pericholecystic fluid. No positive sonographic Bergman's sign reported. BILIARY: There is no intrahepatic biliary ductal dilatation. The common bile duct measures 0.6 cm in diameter. RIGHT KIDNEY: Right kidney is 9.9 cm in length. There is no hydronephrosis. The echogenicity is normal. OTHER: No other significant finding. THIS IS AN ELECTRONICALLY VERIFIED FINAL REPORT 02/05/2022 7:02 PM - Electronically signed by Carlos Hogan M.D. CH: CH Report ID: [id number] Reading Location: [id number] IMPRESSION: Negative right upper quadrant ultrasound. us Jerel Pinedo MD IMG US ORDERABLES Final Res ult documented in this encounter Visit Diagnoses Diagnosis Upper abdominal pain- Primary Abdominal pain, other specified site Upper abdominal pain Abdominal pain, other specified site documented in this encounter Additional Health Concerns Assessment Noted Time PHQ-9 Depression Total Score: 15 021 11:00 AM CDT documented as of this encounter Care Teams R D Intern Relationship Specialty Start Date End Date Gwen Calero, CECY [address] [place] [address] PCP - General Physician International Flight Attendant 06/12/21 Adam Alejo DO Gastroenterology 01/07/16 Johnna Valente APRN, LARRY CAR OPERATOR Nurse Practitioner Advanced Practice Nurse 01/07/16 Marisela Chaidez APRN, LARRY CAR OPERATOR Nurse Practitioner Advanced Practice Nurse 01/07/16 Johnathan Pugh MD [address] [place] [address] Obstetrics & Gynecology 08/13/19 documented as of this encounter
--- OUTSIDE RECORDS SUMMARY | 2024-06-09 07:54 | XMS_ITS | Encounter Summary ---
Author Organization [facility] Address [address] [place] [address] Phone Care Team Providers Care Warehouse Clerk Name Role Phone Carmen Brown MD Primary Care Provider [phone] Adam Alejo DO Unavailable [phone] Johnan Valente APRN, TELECOMMUNICATIONS NETWORK ENGINEER Unavailable [phone] Marisela Chaidez APRN, TELECOMMUNICATIONS NETWORK ENGINEER Unavailable Johnathan Pugh MD Unavailable [phone] Reason for Referral * Radiology Services (Routine) - Closed Specialty Diagnoses / Procedures Referred By Kavon lackey Referred To Contact Radiology Diagnoses Axillary mass, right Procedures US RIGHT EXTREMITY NON-VASC LTD US SOFT TISSUE UNLISTED PROCEDURE Viviane De La Rosa APRN, CNP [address] [place] [address] Phone: tel: fax: Referral ID Status Reason Start Date Expiration Date Visits Re quested Visits Authorized [id number] Closed 05/05/2020 1 1 ON PUNCHER Reason for Visit * Radiology Services (Routine) - Closed Specialty Diagnoses / Procedures Referred By Kavon lackey Referred To Contact Radiology Diagnoses Axillary mass, right Procedures US RIGHT EXTREMITY NON-VASC LTD US SOFT TISSUE UNLISTED PROCEDURE Viviane De La Rosa APRN, CNP [address] [place] [address] Phone: tel: fax: Referral ID Status Reason Start Date Expiration Date Visits Re quested Visits Authorized [id number] Closed 05/05/2020 1 1 Encounter Details Date Type Department Care Team (Latest Contact Info) Description 05/26/2020 11:30 AM BUTTON PUNCHER - 05/26/2020 11:59 PM BUTTON PUNCHER Hospital Encounter [facility] Ultrasound [address] [place] [address] Viviane De La Rosa, PIPE STRESS ENGINEER, TELECOMMUNICATIONS NETWORK ENGINEER [address] [place] [address] Discharge Disposition: Discharged to home or Selfcare Social History Tobacco Use Types Packs/Day Years Used Date Smoking Tobacco: Former Cigarettes Q uit: 05/08/2016 Smokeless Tobacco: Never Comments:occasional smoker Alcohol Use Standard Drinks/Week Comments Yes 0 (1 standard drink = 0.6 oz pur e alcohol) socially PHQ-2 Answer Date Recorded PHQ-2 Score 0 06/29/2019 Education Answer Date Recorded What is the highest level of school you have completed or the highest degree you have received? Some college, no degree 05/05/2020 Sexually Active Control Partners Comments Yes Male [...] or suspected to have Coronavirus / COVID-19? Yes 05/26/2020 11:08 AM BUTTON PUNCHER documented as of this encounter Medications at Time of Discharge amitriptyline (ELAVIL) 25 MG Tablet TAKE 1 TABLET BY MOUTH EVERY EVENING 90 Tab 1 10/04/2019 05/29/2020 amitriptyline (ELAVIL) 50 MG Tablet Take 1 Tab by mouth nightly. 90 Tab 09/13/2019 05/29/2020 Etonogestrel-Ethi nyl Estradiol (NUVARING) 0.12-0.015 MG/24HR RING 1 Each by Vaginal route. 11/06/2020 ibuprofen (MOTRIN) 800 MG TabletIndications :Right foot pain TAKE 1 TAB BY MOUTH EVERY 8 HOURS NEEDED FOR MILD OR MORE SEVERE PAIN. 90 Tab 10/11/2019 11/06/2020 documented as of this encounter Plan of Treatment Upcoming Encounters Date Type Department Care Team (Late st Contact Info) Description 06/19/2024 8:00 AM BUTTON PUNCHER [facility] 1 [place] [address] Gwen Calero, PAC [address] [place] [address] Discharge Disposition: Discharged to home or Selfcare 06/19/2024 9:00 AM BUTTON PUNCHER [facility] [address] [place] [address] Gwen Calero, PAC [address] [place] [address] Discharge Disposition: Discharged to home or Selfcare 08/13/2024 9:00 AM CDT Office Visit [facility] - Internal Medicine - [place] [address] [place] [id number] Gwen Calero, PAC [address] [place] [address] documented as of this encounter Procedures Procedure Name Priority Date/Time Associated Diagnosis Comments US RIGHT EXTREMITY NON-VASC LTD Routine 05/26/2020 12:00 PM BUTTON PUNCHER Axillary mass, right documented in this encounter Results * US RIGHT EXTREMITY NON-VASC LTD (05/26/2020 12:00 PM BUTTON PUNCHER) Anatomical Region Laterality Modality BODY Right Ultrasound 05/26/2020 4:41 PM BUTTON PUNCHER Impressions 05/26/2020 4:44 PM BUTTON PUNCHER IMPRESSION: ?? No soft tissue mass or fluid collection is identified sonographically. ??Further evaluation with CT could be considered if clinically warranted. Narrative 05/26/2020 4:44 PM BUTTON PUNCHER EXAM DESCRIPTION: ?? US RIGHT EXTREMITY NON-VASC LTD REASON FOR STUDY: ?? Localized swelling, mass and lump, right upper limb. ??Palpable abnormality at the right axilla for 8 months. ?? Gotten larger and only painful when pushed on. ??Breast feeding for 3 years. TECHNIQUE: ?? Grayscale and color Doppler sonographic evaluation of the right axilla COMPARISON: ?? None FINDINGS: ?? No soft tissue mass or fluid collection is seen. ??There is a benign-appearing axillary lymph node with reniform shape, thin cortex and fatty hilum. THIS IS AN ELECTRONICALLY VERIFIED FINAL REPORT 05/26/2020 4:41 PM - Electronically signed by Vernon Novak M.D., JR: D: ??05/26/2020 4:40 PM T: ??05/26/2020 4:41 PM Report ID: [id number] Reading Location: ??[id number] Procedure Note Vernon Novak MD - 05/26/2020 EXAM DESCRIPTION: US RIGHT EXTREMITY NON-VASC LTD REASON FOR STUDY: Localized swelling, mass and lump, right upper limb. Palpable abnormality at the right axilla for 8 months. Gotten larger and only painful when pushed on. Breast feeding for 3 years. TECHNIQUE: Grayscale and color Doppler sonographic evaluation of the right axilla COMPARISON: None FINDINGS: No soft tissue mass or fluid collection is seen. There is a benign-appearing axillary lymph node with reniform shape, thin cortex and fatty hilum. THIS IS AN ELECTRONICALLY VERIFIED FINAL REPORT 05/26/2020 4:41 PM - Electronically signed by Vernon Novak M.D., JR: Report ID: [id number] Reading Location: [id number] IMPRESSION: No soft tissue mass or fluid collection is identified sonographically. Further evaluation with CT could be considered if clinically warranted. Viviane De La Rosa APRN, [place] IMG US ORDERABL ES Final Result documented in this encounter Visit Diagnoses Diagnosis Axillary mass, right documented in this encounter Additional Health Concerns Assessment Noted Time PHQ-9 Depression Total Score: 0 06/29/19 20 1:22 PM BUTTON PUNCHER documented as of this encounter Care Teams Warehouse Clerk Relationship Specialty Start Date End Date Carmen Brown MD PCP - General Family Medicine 10/28/15 06/11/21 Adam Alejo DO Gastroenterology 01/07/16 Johnna Valente APRN, TELECOMMUNICATIONS NETWORK ENGINEER Nurse Practitioner Advanced Practice Nurse 01/07/16 Marisela Chaidez APRN, TELECOMMUNICATIONS NETWORK ENGINEER Nurse Practitioner Advanced Practice Nurse 01/07/16 Johnathan Pugh MD [address] [place] [address] Obstetrics & Gynecology 08/13/19 documented as of this encounter
--- OUTSIDE RECORDS SUMMARY | 2024-06-09 07:54 | XMS_ITS | Encounter Summary ---
Author Organization [facility] Address [address] [place] [address] Phone Care Team Providers Care Road Equipment Operator Name Role Phone Adam Alejo DO Unavailable [phone] Johnna Valente BALANCING MACHINE OPERATOR, DATA LEAD Unavailable [phone] Marisela Chaidez BALANCING MACHINE OPERATOR, DATA LEAD Unavailable Johnathan Pugh MD Unavailable [phone] Gwen Calero PAC Primary Care Pro vider Encounter Details Date Type Department Care Team (Late st Contact Info) Description 02/09/2022 Telephone [facility] - Internal Medicine - [place] [address] [place] [address] Gwen Calero, PAC [address] [place] [address] Social History Tobacco Use Types [...] Telephone Encounter - Estrella Swann RMA - 02/10/2022 3:38 PM CDT Sent letter * Telephone Encounter - Estrella Swann RMA - 02/09/2022 9:49 AM CDT Called and left a VM for patient to call me back . * Telephone Encounter - Erica Cage RN - 02/09/2022 7:59 AM CDT ----- Message from Jerel Pinedo MD sent at 02/09/2022 7:46 AM CDT ----- Rt. UQ US- no evidence of acute cholecystitis or gall stones documented in this encounter Plan of Treatment Upcoming Encounters Date Type Department Care Team (Late st Contact Info) Description 06/19/2024 8:00 AM WOOD HEEL FLAP INSERTER [facility] M[facility] [address] [place] [address] Gwen Calero, PAC [address] [place] [address] Discharge Disposition: Discharged to home or Selfcare 06/19/2024 9:00 AM WOOD HEEL FLAP INSERTER [facility] Ul[facility]ound [address] [place] [address] Gwen Calero, PAC [address] [place] [address] Discharge Disposition: Discharged to home or Selfcare 08/13/2024 9:00 AM CDT Office Visit [facility] - Internal Medicine - [place] [address] [place] [address] Gwen Calero, PAC [address] [place] [address] documented as of this encounter Visit Diagnoses Not on filedocumented in this encounter Additional Health Concerns Assessment Noted Time PHQ-9 Depression Total Score: 12 022 1:00 PM CDT documented as of this encounter Care Teams Road Equipment Operator Relationship Specialty Start Date End Date Gwen Calero, PAC [address] [place] [address] PCP - General Physician C Web Developer 06/12/21 Adam Alejo DO Gastroenterology 01/07/16 Johnna Valente APRN, DATA LEAD Nurse Practitioner Advanced Practice Nurse 01/07/16 Marisela Chaidez APRN, DATA LEAD Nurse Practitioner Advanced Practice Nurse 01/07/16 Johnathan Pugh MD [address] [place] [address] Obstetrics & Gynecology 08/13/19 documented as of this encounter
--- OUTSIDE RECORDS SUMMARY | 2024-06-09 07:54 | XMS_ITS | Encounter Summary ---
Author Organization [facility] Care Team Providers Care Relay Shop Supervisor Name Role Phone Carmen Brown MD Primary Care Provider [phone] Adam Alejo DO Unavailable [phone] Johnna Valente CORNER CUTTER, CLEANING SPECIALIST Unavailable [phone] Marisela Chaidez CORNER CUTTER, CLEANING SPECIALIST Unavailable Johnathan Pugh MD Unavailable [phone] Encounter Details Date Type Department Care Team (Latest Contact Info) Description 05/29/2020 Travel Social History Tobacco Use Types Packs/Day [...] suspected to have Coronavirus / COVID-19? Yes 05/29/2020 9:47 AM DIRECTOR OF STRATEGIC SOURCING documented as of this encounter Plan of Treatment Upcoming Encounters Date Type Department Care Team (Late st Contact Info) Description 06/19/2024 8:00 AM DIRECTOR OF STRATEGIC SOURCING Appointment [facility] Mammography 1 [place] [address] Gwen Calero, PAC [address] [place] [address] Discharge Disposition: Discharged to home or Selfcare 06/19/2024 9:00 AM DIRECTOR OF STRATEGIC SOURCING [facility] 1 [place] [address] Gwen Calero, PAC [address] [place] [address] Discharge Disposition: Discharged to home or Selfcare 08/13/2024 9:00 AM CDT Office Visit [facility] - Internal Medicine - [place] [address] [address] Gwen Calero, PAC [address] [facility] [address] documented as of this encounter Visit Diagnoses Not on filedocumented in this encounter Additional Health Concerns Assessment Noted Time PHQ-9 Depression Total Score: 0 06/29/19 20 1:22 PM DIRECTOR OF STRATEGIC SOURCING documented as of this encounter Care Teams Relay Shop Supervisor Relationship Specialty Start Date End Date Carmen Brown MD PCP - General Family Medicine 10/28/15 06/11/21 Adam Alejo DO Gastroenterology 01/07/16 Johnna Valente APRN, CLEANING SPECIALIST Nurse Practitioner Advanced Practice Nurse 01/07/16 Marisela Chaidez APRN, CLEANING SPECIALIST Nurse Practitioner Advanced Practice Nurse 01/07/16 Johnathan Pugh MD [address] [facility] [address] [place] [address] Obstetrics & Gynecology 08/13/19 documented as of this encounter
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
--- OUTSIDE RECORDS SUMMARY | 2024-06-09 07:54 | XMS_ITS | Encounter Summary ---
Author Organization [employer] Care Team Providers Care Back Padder Name Role Phone Carmen Brown MD Primary Care Provider [phone] Adam Alejo DO Unavailable [phone] Johnna Valente DIE KEEPER, AIRFIELD SERVICES OFFICER Unavailable Marisela Chaidez DIE KEEPER, AIRFIELD SERVICES OFFICER Unavailable Johnathan Pugh MD Unavailable [phone] Encounter Details Date Type Department Care Team (Latest Contact Info) Description 11/06/2020 Travel Social History Tobacco Use Types Packs/Day [...] st Contact Info) Description 06/19/2024 8:00 AM SURGICAL GARMENT INSPECTOR [facility] [address] [place] [address] Gwen Calero, PAC [address] [place] [address] Discharge Disposition: Discharged to home or Selfcare 06/19/2024 9:00 AM SURGICAL GARMENT INSPECTOR [facility] [address] [place] [address] Gwen Calero, PAC [address] [place] [address] Discharge Disposition: Discharged to home or Selfcare 08/13/2024 9:00 AM CDT [facility] - [place] [address] [facility] [place] [place] [address] Gwen Calero, PAC [address] [place] [address] documented as of this encounter Visit Diagnoses Not on filedocumented in this encounter Additional Health Concerns Assessment Noted Time PHQ-9 Depression Total Score: 15 021 11:00 AM CDT documented as of this encounter Care Teams Back Padder Relationship Specialty Start Date End Date Carmen Brown MD PCP - General Family Medicine 10/28/15 06/11/21 Adam Alejo DO Gastroenterology 01/07/16 Johnna Valente APRN, AIRFIELD SERVICES OFFICER Nurse Practitioner Advanced Practice Nurse 01/07/16 Marisela Chaidez, DIE KEEPER, AIRFIELD SERVICES OFFICER Nurse Practitioner Advanced Practice Nurse 01/07/16 Johnathan Pugh MD [address] [facility] [address] [place] [address] Obstetrics & Gynecology 08/13/19 documented as of this encounter
--- OUTSIDE RECORDS SUMMARY | 2024-06-09 07:54 | XMS_ITS | Encounter Summary ---
Author Organization [facility] Address [address] [facility] [place] [address] Phone Care Team Providers Care Corn Cutter Operator Name Role Phone Carmen Brown MD Primary Care Provider [phone] Adam Alejo DO Unavailable [phone] Johnna Valente BATCH UNIT TREATER, MOLD LOFT WORKER Unavailable [phone] Marisela Chaidez APRN, MOLD LOFT WORKER Unavailable Johnathan Pugh MD Unavailable [phone] Reason for Visit * Reason Onset Date Comments Sore Throat 07/03/2020 Encounter Details Date Type Department Care Team (Late st Contact Info) Description 07/03/2020 [facility] [address] [place] [address] Carmen Brown MD [address] [place] [address] Sore Throat Social History Tobacco Use Types Packs/Day Years [...] have Coronavirus / COVID-19? No / Unsure 07/07/2020 11:37 AM SEAMAN documented as of this encounter Miscellaneous Notes * Telephone Encounter - Carmen Brown MD - 07/03/2020 10:26 PM SEAMAN Make telemed visit tomorrow - 07/04/20 with me. AN * Telephone Encounter - Staci Pitts RN - 07/03/2020 11:42 AM CST Pt calling Needing blood work sent [facility] but apparently not showing at [facility] lab per pt SITUATION: strep exposure BACKGROUND: Day 1 ASSESSMENT: Symptom Description / Location: Pt calling about labs states daughter x with strep Sore throat Fatigue No fever Diarrhea yesterday Pain (0-10): yes Temp: none Treatment / Response: tylenol LMP / / : Pt wanting abx Allergies and pharmacy confirmed Please advise Please also let pt know that rn did call [facility] and they do have pending labs in [facility] RECOMMENDATION: See care advice and disposition for Guideline First positive answer recorded, all responses to prior questions were negative. If symptoms increase, change or if new symptoms develop, call your HCP or call back. Recommendations were based on caller information and is not a diagnosis. Verified and reviewed all triage information with caller. Reason for Disposition ??? Patient requesting a strep throat test Protocols used: SORE THROAT-A-OH AN documented in this encounter Plan of Treatment Upcoming Encounters Date Type Department Care Team (Late st Contact Info) Description 06/19/2024 8:00 AM SEAMAN Appointment [facility] Mammography [address] [place] [address] Gwen Calero, PAC [address] [place] [address] Discharge Disposition: Discharged to home or Selfcare 06/19/2024 9:00 AM SEAMAN Appointment [facility] Ul[facility]ound [address] [place] [address] Gwen Calero, PAC [address] [place] [address] Discharge Disposition: Discharged to home or Selfcare 08/13/2024 9:00 AM CDT [facility] - [place] [address] [id number] Gwen Calero, PAC [address] [place] [address] documented as of this encounter Visit Diagnoses Not on filedocumented in this encounter Additional Health Concerns Assessment Noted Time PHQ-9 Depression Total Score: 0 06/29/19 20 1:22 PM SEAMAN documented as of this encounter Care Teams Corn Cutter Operator Relationship Specialty Start Date End Date Carmen Brown MD PCP - General Family Medicine 10/28/15 06/11/21 Adam Alejo DO Gastroenterology 01/07/16 Johnna Valente, BATCH UNIT TREATER, MOLD LOFT WORKER Nurse Practitioner Advanced Practice Nurse 01/07/16 Marisela Chaidez APRN, MOLD LOFT WORKER Nurse Practitioner Advanced Practice Nurse 01/07/16 Johnathan Pugh MD [address] [place] [address] Obstetrics & Gynecology 08/13/19 documented as of this encounter
--- OUTSIDE RECORDS SUMMARY | 2024-06-09 07:54 | XMS_ITS | Encounter Summary ---
Author Organization [facility] Care Team Providers Care Padded Box Sewer Name Role Phone Carmen Brown MD Primary Care Provider [phone] Adam Alejo DO Unavailable [phone] Johnna Valente CHAIR MAKER, CARBON COATER MACHINE OPERATOR Unavailable [phone] Marisela Chaidez CHAIR MAKER, CARBON COATER MACHINE OPERATOR Unavailable Johnathan Pugh MD Unavailable [phone] Encounter Details Date Type Department Care Team (Latest Contact Info) Description 08/13/2020 Travel Social History Tobacco Use Types Packs/Day [...] have Coronavirus / COVID-19? No / Unsure 08/13/2020 8:08 AM RETAIL STOCKER documented as of this encounter Plan of Treatment Upcoming Encounters Date Type Department Care Team (Late st Contact Info) Description 06/19/2024 8:00 AM RETAIL STOCKER [facility] [address] [place] [address] Gwen Calero, PAC [address] [place] [address] Discharge Disposition: Discharged to home or Selfcare 06/19/2024 9:00 AM RETAIL STOCKER [facility] [address] [place] [address] Gwen Calero, PAC [address] [place] [address] Discharge Disposition: Discharged to home or Selfcare 08/13/2024 9:00 AM CDT Office Visit [facility] - Internal Medicine - [place] [address] [place] [address] Gwen Calero, PAC [address] [place] [address] documented as of this encounter Visit Diagnoses Not on filedocumented in this encounter Additional Health Concerns Infection Onset Date Last Indicated Resolved Time COVID - 19 08/13/2020 08/13/2020 08/14/2020 8:14 AM RETAIL STOCKER Assessment Noted Time PHQ-9 Depression Total Score: 0 06/29/19 20 1:22 PM RETAIL STOCKER documented as of this encounter Care Teams Padded Box Sewer Relationship Specialty Start Date End Date Carmen Brown MD PCP - General Family Medicine 10/28/15 06/11/21 Adam Alejo DO Gastroenterology 01/07/16 Johnna Valente, CHAIR MAKER, CARBON COATER MACHINE OPERATOR Nurse Practitioner Advanced Practice Nurse 01/07/16 Marisela Chaidez, CHAIR MAKER, CARBON COATER MACHINE OPERATOR Nurse Practitioner Advanced Practice Nurse 01/07/16 Johnathan Pugh MD [address] [place] [address] Obstetrics & Gynecology 08/13/19 documented as of this encounter
--- OUTSIDE RECORDS SUMMARY | 2024-06-09 07:54 | XMS_ITS | Encounter Summary ---
Author Organization [facility] Address [address] [place] [address] Phone Care Team Providers Care Sales And Marketing Manager Name Role Phone Carmen Brown MD Primary Care Provider [phone] Adam Alejo DO Unavailable [phone] Johnna Valente WELT ROUGHER, STUDENT LIAISON OFFICER Unavailable [phone] Marisela Chaidez APRN, STUDENT LIAISON OFFICER Unavailable Johnathan Pugh MD Unavailable [phone] Reason for Visit * Reason Comments Sore Throat Encounter Details Date Type Department Care Team (Late st Contact Info) Description 08/13/2020 8:15 AM PATTERN GENERATOR OPERATOR Urgent Care Visit [facility] [place] [address] [place] [address] Erica Catalan APRN, STUDENT LIAISON OFFICER [address] [place] [address] Sore throat (Primary Dx) Discharge Disposition: Discharged to home [...] COVID-19? No / Unsure 08/13/2020 8:08 AM PATTERN GENERATOR OPERATOR documented as of this encounter Last Filed Vital Signs Vital Sign Reading Time Taken Comments Blood Pressure 110/70 08/13/2020 8:13 AM PATTERN GENERATOR OPERATOR Pulse 76 08/13/2020 8:13 AM PATTERN GENERATOR OPERATOR Temperature 36.8 ??C (98.2 ??F) 08/13/2020 8:13 AM CS T Respiratory Rate 20 08/13/2020 8:13 AM PATTERN GENERATOR OPERATOR Oxygen Saturation 98% 08/13/2020 8:13 AM PATTERN GENERATOR OPERATOR Inhaled Oxygen Concentration - - Weight - - Height - - Body Mass Index - - documented in this encounter Patient Instructions * Patient Instructions* Erica Catalan APN, STUDENT LIAISON OFFICER - 08/13/2020 8:15 AM PATTERN GENERATOR OPERATOR Images from the original note were not included. Self-Care for Sore Throats?? Sore throats happen for many reasons, such as colds, allergies, cigarette smoke, air pollution, andinfections caused by viruses or bacteria. In any case, your throat becomes red and sore. Your goal for self-care is to reduce your discomfort while giving your throat a chance to heal. Moisten and soothe your throat Tips include the following: ?? Try a sip of water first thing after waking up. ?? Keep your throat moist by drinking??6 or more glasses of clear liquids every day. ?? Run a cool-air humidifier in your room overnight. ?? Stay away from cigarette smoke.? Check the air quality index,if air pollution gives you a sore throat. On high pollution days, try to limit outdoor time. ?? Suck on throat lozenges, cough drops, hard candy, ice chips, or frozen fruit- juice bars. Use thesugar-free versions if your diet or medical condition requires them. Gargle to ease irritation Gargling every hour or??2 can ease irritation. Try gargling with??1 of these solutions: ?? 1/4??teaspoon of salt in??1/2 cup of warm water ?? An trwg-mda-yjpzian anesthetic gargle Use medicine for more relief Ngqs-zup-frfmjda medicine can reduce sore throat symptoms. Ask your pharmacist if you have questions about which medicine to use. To prevent possible medicine interactions, let the pharmacist know what medicines you take. To decrease symptoms: ?? Ease pain with anesthetic sprays. Aspirin or an aspirin substitute also helps. Remember, never give aspirin to anyone 18 or younger. Don't take aspirin if you are already??taking blood thinners.? For sore throats caused by allergies, try antihistamines to block the allergic reaction. Unless a sore throat is caused by a bacterial infection, antibiotics won???t help you. Prevent future sore throats Prevention tips include: ?? Stop smoking or reduce contact with secondhand smoke. Smoke irritates the tender throat lining. ?? Limit contact with pets and with allergy-causing substances, such as pollen and mold. ?? Wash your hands often when you???re around someone with a sore throat or cold. This will keep viruses or bacteria from spreading. ?? Limit outdoor time when air pollution is bad. ?? Don???t strain your vocal cords. When to call your healthcare provider Contact your healthcare provider if you have: ?? Fever of 100.4??F (38.0??C) or higher, or as directed by your healthcare provider ?? White spots on the throat ?? Great Trouble swallowing ?? A skin rash ?? Recent exposure to someone else with strep bacteria ?? Severe hoarseness and swollen glands in the neck or jaw Call 911 Call 911 if any of the following occur: ?? Trouble breathing or catching your breath ?? Drooling and problems swallowing ?? Wheezing ?? Unable to talk ?? Feeling dizzy or faint ?? Feeling of doom [employer] last reviewed this educational content on 02/04/2019 ?? 7551-2204 [employer]. All rights reserved. This information is not intended as a substitute for professional medical care. Always follow your healthcare professional's instructions. ERN GENERATOR OPERATOR documented in this encounter Progress Notes * Yudelka Summers RN - 08/13/2020 8:15 AM CST Shalonda Constantino complains of Sore Throat This is a new problem. The current episode started yesterday. Today's Review of Systems Constitutional: Positive for malaise/fatigue. ERN GENERATOR OPERATOR * Erica Catalan APN, CNP - 08/13/2020 8:15 AM CST Subjective: Shalonda Constantino is a 35 y.o. female in the prompt care today for sore throat and fatigue. Daughter is sick, but no other ill contacts. Symptoms started 1 day ago Severity of symptoms is mild Associated symptoms as recorded in the ROS. Patient is currently taking over the counter nothing for the symptoms. This has provided minimal tee relief in the symptoms. Smoker/vapes: no Past, family, and social history was reviewed. Review of Systems Constitutional: Positive for fatigue. Negative for fever. HENT: Positive for sore throat and trouble swallowing. Objective: Physical Exam Vitals and nursing note reviewed. Constitutional: General: She is not in acute distress. HENT: Right Ear: Tympanic membrane and ear canal normal. Left Ear: Tympanic membrane and ear canal normal. Mouth/Throat: Pharynx: Oropharynx is clear. Posterior oropharyngeal erythema (mild) present. Cardiovascular: Rate and Rhythm: Normal rate. Pulmonary: Effort: Pulmonary effort is normal. Breath sounds: Normal breath sounds. Neurological: General: No focal deficit present. Mental Status: She is alert and oriented to person, place, and time. Psychiatric: Mood and Affect: Mood normal. Vitals: 08/13/20 0813 BP: 110/70 Pulse: 76 Resp: 20 Temp: 98.2 ??F (36.8 ??C) TempSrc: Oral SpO2: 98% Assessment and Plan See Diagnoses, Orders, Follow-up, and Instructions Diagnoses and all orders for this visit: Sore throat - POCT GROUP A STREP SCREEN RAPID - POCT SARS ANTIGEN ASHLEY Strep screen negative. Throat culture will be sent out to lab for further growth. If throat culturedoes come back positive for bacteria, then you will be notified. Most likely symptoms are viral in nature. Comfort care: Get plenty of sleep and rest your voice. Drink plenty of water to keep the throat moist and prevent dehydration. Warm liquids -- broth, caffeine-free tea or warm water with honey -- and cold treats such as ice pops can soothe a sore throat. A saltwater gargle of 1 teaspoon (5 grams) of table salt to 8 ounces (237 milliliters) of warm water can help soothe a sore throat. Gargle the solution and then spit it out. Use a cool-air humidifier to eliminate dry air that may further irritate a sore throat or sit for several minutes in a steamy bathroom. Lozenges can soothe a sore throat. Keep your home free from cigarette smoke and cleaning products that can irritate the throat. Treat pain and fever. Ibuprofen (Advil, Motrin IB, others) or acetaminophen (Tylenol, others) may minimize throat pain. Follow up with PCP if symptoms do not improve or worsen. AVS from today was printed, discussed with patient/family and given to patient/family ERN GENERATOR OPERATOR * Yudelka Summers RN - 08/13/2020 8:15 AM CST Per order of Erica Catalan APN, CNP throat swab collected for POCT Strep A. Patient tolerated well. ERN GENERATOR OPERATOR * Fidelina Marroquin CMA - 08/13/2020 8:15 AM CST Per order of Erica Catalan APN, CNP Bilateral nasal swab collected for POCT Covid. Patient tolerated well. ERN GENERATOR OPERATOR documented in this encounter Plan of Treatment Upcoming Encounters Date Type Department Care Team (Late st Contact Info) Description 06/19/2024 8:00 AM PATTERN GENERATOR OPERATOR [facility] 1 [place] [address] Gwen Calero, PAC [address] [place] [address] Discharge Disposition: Discharged to home or Selfcare 06/19/2024 9:00 AM PATTERN GENERATOR OPERATOR [facility] 1 [place] [address] Gwen Calero, PAC [address] [place] [address] Discharge Disposition: Discharged to home or Selfcare 08/13/2024 9:00 AM CDT [facility] - [place] [address] [place] [address] Gwen Calero, PAC [address] [place] [address] documented as of this encounter Procedures Procedure Name Priority Date/Time Associated Diagnosis Comments POCT SARS ANTIGEN ASHLEY Routine 08/13/2020 9:26 AM PATTERN GENERATOR OPERATOR Sore throat POCT GROUP A STREP SCREEN RAPID Routine 08/13/2020 8:29 AM PATTERN GENERATOR OPERATOR Sore throat documented in this encounter Results * POCT SARS ANTIGEN ASHLEY (08/13/2020 9:26 AM PATTERN GENERATOR OPERATOR) POC SARS ANTIGEN ASHLEY Negative Negative POC SARS ANTIGEN ASHLEY CONTROL Electric Organ Inspector And Repairer Pass Swab NASAL STRUCTURE / Unknown 08/13/2020 9:26 AM PATTERN GENERATOR OPERATOR Erica Catalan WELT ROUGHER, STUDENT LIAISON OFFICER POINT OF CARE GEORGE TING (MANUAL) Final Result * POCT GROUP A STREP SCREEN RAPID (08/13/2020 8:29 AM PATTERN GENERATOR OPERATOR) POC STREP SCRN Presumptive negative POC STREP SCREEN CONTROL Electric Organ Inspector And Repairer Pass 08/13/2020 8:29 AM PATTERN GENERATOR OPERATOR Result [facility] Erica Catalan WELT ROUGHER, STUDENT LIAISON OFFICER POINT OF CARE GEORGE TING (MANUAL) Final Result documented in this encounter Visit Diagnoses Diagnosis Sore throat- Primary Acute pharyngitis documented in this encounter Additional Health Concerns Assessment Noted Time PHQ-9 Depression Total Score: 0 06/29/19 20 1:22 PM PATTERN GENERATOR OPERATOR documented as of this encounter Care Teams Sales And Marketing Manager Relationship Specialty Start Date End Date Carmen Brown MD PCP - General Family Medicine 10/28/15 06/11/21 Adam Alejo DO Gastroenterology 01/07/16 Johnna Valente APRN, STUDENT LIAISON OFFICER Nurse Practitioner Advanced Practice Nurse 01/07/16 Marisela Chaidez APRN, STUDENT LIAISON OFFICER Nurse Practitioner Advanced Practice Nurse 01/07/16 Johnathan Pugh MD [address] [place] [address] Obstetrics & Gynecology 08/13/19 documented as of this encounter
--- OUTSIDE RECORDS SUMMARY | 2024-06-09 07:54 | XMS_ITS | Encounter Summary ---
Author Organization [facility] Address [address] [place] [address] Phone Care Team Providers Care Firefighting Equipment Specialist Name Role Phone Carmen Brown MD Primary Care Provider [phone] Adam Alejo DO Unavailable [phone] Johnna Valente APRN, SALES REPRESENTATIVE ELECTRIC SERVICE Unavailable Marisela Chaidez APRN, SALES REPRESENTATIVE ELECTRIC SERVICE Unavailable Johnathan Pugh MD Unavailable [phone] Gwen Calero PAC Primary Care Pro vider Reason for Visit * Reason Comments Medication Refill Encounter Details Date Type Department Care Team (Late st Contact Info) Description 12/18/2020 Refill [facility] - Primary Care - [place] [address] [place] [address] Viviane De La Rosa, MEDIA ASSOCIATE, SALES REPRESENTATIVE ELECTRIC SERVICE [address] [place] [address] Medication Refill Social History Tobacco Use Types [...] have Coronavirus / COVID-19? No / Unsure 11/22/2020 12:55 PM CDT documented as of this encounter Miscellaneous Notes * Telephone Encounter - Yudelka Summers RN - 12/18/2020 8:22 AM CDT The original prescription was discontinued on 11/06/2020 by Carmen Brown MD for the following reason: Therapy completed documented in this encounter Plan of Treatment Upcoming Encounters Date Type Department Care Team (Late st Contact Info) Description 06/19/2024 8:00 AM DISASTER DIRECTOR [facility] 1 [place] [address] Gwen Calero, PAC [address] [place] [address] Discharge Disposition: Discharged to home or Selfcare 06/19/2024 9:00 AM DISASTER DIRECTOR [facility] 1 [place] [address] Gwen Calero, PAC [address] [place] [address] Discharge Disposition: Discharged to home or Selfcare 08/13/2024 9:00 AM CDT Office Visit [facility] - Internal Medicine - [place] [address] [place] [address] Gwen Calero, PAC [address] [place] [address] documented as of this encounter Visit Diagnoses Diagnosis Mild episode of recurrent major depressive disorder (HCC) Anxiety Anxiety state, unspecified documented in this encounter Additional Health Concerns Assessment Noted Time PHQ-9 Depression Total Score: 15 09/24/ 021 11:00 AM CDT documented as of this encounter Care Teams Firefighting Equipment Specialist Relationship Specialty Start Date End Date Carmen Brown MD PCP - General Family Medicine 10/28/15 06/11/21 Gwen Calero, [facility] [address] [place] [address] PCP - General Physician Implant Coordinator 06/12/21 Adam Alejo DO Gastroenterology 01/07/16 Johnna Valente APRN, SALES REPRESENTATIVE ELECTRIC SERVICE Nurse Practitioner Advanced Practice Nurse 01/07/16 Marisela Chaidez, MICHAEL, SALES REPRESENTATIVE ELECTRIC SERVICE Nurse Practitioner Advanced Practice Nurse 01/07/16 Johnathan Pugh MD [address] [place], [place] [address] Obstetrics & Gynecology 08/13/19 documented as of this encounter
--- OUTSIDE RECORDS SUMMARY | 2024-06-09 07:54 | XMS_ITS | Encounter Summary ---
Author Organization [employer] Care Team Providers Care Doula Name Role Phone Carmen Brown MD Primary Care Provider [phone] Adam Alejo DO Unavailable [phone] Johnna Valente FOOD HANDLER, HISTORIOGRAPHER Unavailable [phone] Marisela Chaidez FOOD HANDLER, HISTORIOGRAPHER Unavailable Johnathan Pugh MD Unavailable [phone] Encounter Details Date Type Department Care Team (Latest Contact Info) Description 11/22/2020 Travel Social History Tobacco Use Types Packs/Day [...] st Contact Info) Description 06/19/2024 8:00 AM MECHANICAL INTEGRITY ENGINEER [facility] 1 [place] [address] Gwen Calero, PAC [address] [place] [address] Discharge Disposition: Discharged to home or Selfcare 06/19/2024 9:00 AM MECHANICAL INTEGRITY ENGINEER [facility] 1 [place] [address] Gwen Calero, PAC [address] [place] [address] Discharge Disposition: Discharged to home or Selfcare 08/13/2024 9:00 AM CDT [facility] [place] [address] [place] [address] Gwen Calero, PAC [address] [place] [address] documented as of this encounter Visit Diagnoses Not on filedocumented in this encounter Additional Health Concerns Assessment Noted Time PHQ-9 Depression Total Score: 15 021 11:00 AM CDT documented as of this encounter Care Teams Doula Relationship Specialty Start Date End Date Carmen Brown MD PCP - General Family Medicine 10/28/15 06/11/21 Adam Alejo DO Gastroenterology 01/07/16 Johnna Valente APRN, HISTORIOGRAPHER Nurse Practitioner Advanced Practice Nurse 01/07/16 Marisela Chaidez, FOOD HANDLER, HISTORIOGRAPHER Nurse Practitioner Advanced Practice Nurse 01/07/16 Johanthan Pugh MD [address] [facility] [address] [place] [address] Obstetrics & Gynecology 08/13/19 documented as of this encounter
--- OUTSIDE RECORDS SUMMARY | 2024-06-09 07:54 | XMS_ITS | Encounter Summary ---
Author Organization [facility] Address [address] [place] [address] Phone Care Team Providers Care Oyster Unloader Name Role Phone Carmen Brown MD Primary Care Provider [phone] Adam Alejo DO Unavailable [phone] Johnna Valente JAVA J2EE APPLICATION DEVELOPER, PATIENT CARE SPECIALIST Unavailable Marisela Chaidez APRN, PATIENT CARE SPECIALIST Unavailable Johnathan Pugh MD Unavailable [phone] Reason for Visit * Reason Onset Date Comments Results 08/11/2020 Encounter Details Date Type Department Care Team (Late st Contact Info) Description 08/11/2020 Telephone [facility] - Primary Care - [place] [address] [place] [address] Carmen Brown MD [address] [place] [address] Results Social History Tobacco Use Types Packs/Day [...] have Coronavirus / COVID-19? No / Unsure 08/10/2020 8:50 AM SITE IDENTIFICATION SPECIALIST documented as of this encounter Miscellaneous Notes * Telephone Encounter - Magi Ayala RN - 08/11/2020 11:42 AM CST Patient notified, verbalized understanding and agrees. IDENTIFICATION SPECIALIST * Telephone Encounter - Tran Gannon RN - 08/11/2020 11:14 AM SITE IDENTIFICATION SPECIALIST Attempted to call patient with results, no answer at this time. Left message to call back. IDENTIFICATION SPECIALIST * Telephone Encounter - Tran Gannon RN - 08/11/2020 11:13 AM SITE IDENTIFICATION SPECIALIST ----- Message from Viviane De La Rosa APN, PATIENT CARE SPECIALIST sent at 08/11/2020 8:17 AM SITE IDENTIFICATION SPECIALIST ----- Labs overall look good. Vit d slightly low at 21. Start vit d3 1000iu daily. IDENTIFICATION SPECIALIST documented in this encounter Plan of Treatment Upcoming Encounters Date Type Department Care Team (Late st Contact Info) Description 06/19/2024 8:00 AM SITE IDENTIFICATION SPECIALIST Appointment [facility] Mammography 1 [place] [address] Gwen Calero, PAC [address] [place] [address] Discharge Disposition: Discharged to home or Selfcare 06/19/2024 9:00 AM SITE IDENTIFICATION SPECIALIST Appointment [facility] Ultrasound [address] [place] [address] Gwen Calero, PAC [address] [place] [address] Discharge Disposition: Discharged to home or Selfcare 08/13/2024 9:00 AM CDT [facility] - [place] [address] [facility] [place] [address] Gwen Calero, PAC [address] [place] [address] documented as of this encounter Visit Diagnoses Not on filedocumented in this encounter Additional Health Concerns Assessment Noted Time PHQ-9 Depression Total Score: 0 06/29/19 20 1:22 PM SITE IDENTIFICATION SPECIALIST documented as of this encounter Care Teams Oyster Unloader Relationship Specialty Start Date End Date Carmen Brown MD PCP - General Family Medicine 10/28/15 06/11/21 Adam Alejo DO Gastroenterology 01/07/16 Johnna Valente APRN, PATIENT CARE SPECIALIST Nurse Practitioner Advanced Practice Nurse 01/07/16 Marisela Chaidez, MICHAEL, PATIENT CARE SPECIALIST Nurse Practitioner Advanced Practice Nurse 01/07/16 Johnathan Pugh MD [address] [place] [address] Obstetrics & Gynecology 08/13/19 documented as of this encounter
--- OUTSIDE RECORDS SUMMARY | 2024-06-09 07:54 | XMS_ITS | Encounter Summary ---
Author Organization [employer] Care Team Providers Care Carpenter Mine Name Role Phone Adam Alejo DO Unavailable [phone] Johnna Valente TOP LOADER, FARM MANAGEMENT TEACHER Unavailable [phone] Marisela Chaidez TOP LOADER, FARM MANAGEMENT TEACHER Unavailable Johnathan Pugh MD Unavailable [phone] Gwen Calero PAC Primary Care Pro vider Encounter Details Date Type Department Care Team (Latest Contact Info) Description 06/12/2021 Travel Social History Tobacco Use Types Packs/Day [...] have Coronavirus / COVID-19? No / Unsure 06/12/2021 11:07 AM SPORTS MARKETING COORDINATOR documented as of this encounter Plan of Treatment Upcoming Encounters Date Type Department Care Team (Late st Contact Info) Description 06/19/2024 8:00 AM SPORTS MARKETING COORDINATOR [facility] 1 [place] [address] Gwen Calero, PAC [address] [place] [address] Discharge Disposition: Discharged to home or Selfcare 06/19/2024 9:00 AM SPORTS MARKETING COORDINATOR [facility] 1 [place] [address] Gwen Calero, PAC [address] [place] [address] Discharge Disposition: Discharged to home or Selfcare 08/13/2024 9:00 AM CDT [facility] [place] [address] [place] [address] Gwen Calero, PAC [address] [place] [address] documented as of this encounter Visit Diagnoses Not on filedocumented in this encounter Additional Health Concerns Assessment Noted Time PHQ-9 Depression Total Score: 15 021 11:00 AM CDT documented as of this encounter Care Teams Carpenter Mine Relationship Specialty Start Date End Date Gwen Caleor, PAC [address] [place] [address] PCP - General Physician Seasonal Greenery Bundler 06/12/21 Adam Alejo DO Gastroenterology 01/07/16 Johnna Valente, TOP LOADER, FARM MANAGEMENT TEACHER Nurse Practitioner Advanced Practice Nurse 01/07/16 Marisela Chaidez, TOP LOADER, FARM MANAGEMENT TEACHER Nurse Practitioner Advanced Practice Nurse 01/07/16 Johnathan Pugh MD [address] [facility] [address] [place] [address] Obstetrics & Gynecology 08/13/19 documented as of this encounter
--- OUTSIDE RECORDS SUMMARY | 2024-06-09 07:54 | XMS_ITS | Encounter Summary ---
Author Organization [facility] Care Team Providers Care Adjustment Clerk Name Role Phone Carmen Brown MD Primary Care Provider [phone] Adam Alejo DO Unavailable [phone] Johnna Valente SALES PROPERTY MANAGER, WIRE SPLICER Unavailable [phone] Marisela Chaidez SALES PROPERTY MANAGER, WIRE SPLICER Unavailable Johnathan Pugh MD Unavailable [phone] Encounter Details Date Type Department Care Team (Latest Contact Info) Description 05/05/2020 Travel Social History Tobacco Use Types Packs/Day [...] suspected to have Coronavirus / COVID-19? Yes 05/05/2020 10:45 AM ASSOCIATE PROFESSOR OF COUNSELING documented as of this encounter Plan of Treatment Upcoming Encounters Date Type Department Care Team (Late st Contact Info) Description 06/19/2024 8:00 AM ASSOCIATE PROFESSOR OF COUNSELING Appointment [facility] Mammography 1 [place] [address] Gwen Calero, PAC [address] [place] [address] Discharge Disposition: Discharged to home or Selfcare 06/19/2024 9:00 AM ASSOCIATE PROFESSOR OF COUNSELING [facility] 1 [place] [address] Gwen Calero, PAC [address] [place] [address] Discharge Disposition: Discharged to home or Selfcare 08/13/2024 9:00 AM CDT Office Visit [facility] - Internal Medicine - [place] [address] [facility] [place] [address] Gwen Calero, PAC [address] [address] documented as of this encounter Visit Diagnoses Not on filedocumented in this encounter Additional Health Concerns Infection Onset Date Last Indicated Resolved Time COVID - 19 04/25/2020 04/25/2020 05/15/2020 12:1 8 AM ASSOCIATE PROFESSOR OF COUNSELING Assessment Noted Time PHQ-9 Depression Total Score: 0 06/29/19 1:22 PM ASSOCIATE PROFESSOR OF COUNSELING documented as of this encounter Care Teams Adjustment Clerk Relationship Specialty Start Date End Date Carmen Brown MD PCP - General Family Medicine 10/28/15 06/11/21 Adam Alejo DO Gastroenterology 01/07/16 Johnna Valente, SALES PROPERTY MANAGER, WIRE SPLICER Nurse Practitioner Advanced Practice Nurse 01/07/16 Marisela Chaidez APRN, WIRE SPLICER Nurse Practitioner Advanced Practice Nurse 01/07/16 Johnathan Pugh MD [address] [place] [address] Obstetrics & Gynecology 08/13/19 documented as of this encounter
--- OUTSIDE RECORDS SUMMARY | 2024-06-09 07:54 | XMS_ITS | Encounter Summary ---
Author Organization [facility] Care Team Providers Care Rice Dryer Mechanic Name Role Phone Carmen Brown MD Primary Care Provider [phone] Adam Alejo DO Unavailable [phone] Johnna Valente WATCH ASSEMBLY INSPECTOR, CHIEF OF FIELD OPERATIONS Unavailable [phone] Marisela Chaidez WATCH ASSEMBLY INSPECTOR, CHIEF OF FIELD OPERATIONS Unavailable Johnathan Pugh MD Unavailable [phone] Encounter Details Date Type Department Care Team (Latest Contact Info) Description 08/10/2020 Travel Social History Tobacco Use Types Packs/Day [...] COVID-19? No / Unsure 08/10/2020 8:50 AM CALCINER OPERATOR HELPER documented as of this encounter Plan of Treatment Upcoming Encounters Date Type Department Care Team (Late st Contact Info) Description 06/19/2024 8:00 AM CALCINER OPERATOR HELPER [facility] 1 [place] [address] Gwen Calero, PAC [address] [place] [address] Discharge Disposition: Discharged to home or Selfcare 06/19/2024 9:00 AM CALCINER OPERATOR HELPER [facility] 1 [place] [address] Gwen Calero, PAC [address] [place] [address] Discharge Disposition: Discharged to home or Selfcare 08/13/2024 9:00 AM CDT [facility] [place] [address] [facility] [place] [address] Gwen Calero, PAC [address] [facility] [place] [address] documented as of this encounter Visit Diagnoses Not on filedocumented in this encounter Additional Health Concerns Assessment Noted Time PHQ-9 Depression Total Score: 0 06/29/19 20 1:22 PM CALCINER OPERATOR HELPER documented as of this encounter Care Teams Rice Dryer Mechanic Relationship Specialty Start Date End Date Carmen Brown MD PCP - General Family Medicine 10/28/15 06/11/21 Adam Alejo DO Gastroenterology 01/07/16 Johnna Valente APRN, CHIEF OF FIELD OPERATIONS Nurse Practitioner Advanced Practice Nurse 01/07/16 Marisela Chaidez APRN, CHIEF OF FIELD OPERATIONS Nurse Practitioner Advanced Practice Nurse 01/07/16 Johnathan Pugh MD [address] [facility] [address] [facility] [address] [place] [address] Obstetrics & Gynecology 08/13/19 documented as of this encounter
--- OUTSIDE RECORDS SUMMARY | 2024-06-09 07:54 | XMS_ITS | Encounter Summary ---
Author Organization [id number] Care Team Providers Care Gold Leaf Printer Name Role Phone Carmen Brown MD Primary Care Provider Adam Alejo DO Unavailable [phone] Johnna Valente PODIATRIC SURGEON, DRIVEWAY SEALER Unavailable Marisela Chaidez PODIATRIC SURGEON, DRIVEWAY SEALER Unavailable Johnathan Pugh MD Unavailable [phone] Encounter Details Date Type Department Care Team (Latest Contact Info) Description 11/20/2020 Travel Social History Tobacco Use Types Packs/Day [...] or suspected to have Coronavirus / COVID-19? Unable to assess 11/20/2020 8:47 AM CDT documented as of this encounter Plan of Treatment Upcoming Encounters Date Type Department Care Team (Late st Contact Info) Description 06/19/2024 8:00 AM CAR BUILDER [facility] 1 [place] [address] Gwen Calero, PAC [address] [place] [address] Discharge Disposition: Discharged to home or Selfcare 06/19/2024 9:00 AM CAR BUILDER [facility] [address] [place] [address] Gwen Calero, PAC [address] [place] [address] Discharge Disposition: Discharged to home or Selfcare 08/13/2024 9:00 AM CDT [facility] - [place] [address] [place] [address] Gwen Calero, PAC [address] [place] [address] documented as of this encounter Visit Diagnoses Not on filedocumented in this encounter Additional Health Concerns Assessment Noted Time PHQ-9 Depression Total Score: 15 021 11:00 AM CDT documented as of this encounter Care Teams Gold Leaf Printer Relationship Specialty Start Date End Date Carmen Brown MD PCP - General Family Medicine 10/28/15 06/11/21 Adam Alejo DO Gastroenterology 01/07/16 Johnna Valente APRN, DRIVEWAY SEALER Nurse Practitioner Advanced Practice Nurse 01/07/16 Marisela Chaidez, PODIATRIC SURGEON, DRIVEWAY SEALER Nurse Practitioner Advanced Practice Nurse 01/07/16 Johnathan Pugh MD [address] [facility] [address] [place] [address] Obstetrics & Gynecology 08/13/19 documented as of this encounter
--- OUTSIDE RECORDS SUMMARY | 2024-06-09 07:54 | XMS_ITS | Encounter Summary ---
Author Organization [facility] Address [address] [place] [address] Phone Care Team Providers Care Chain Saw Driver Name Role Phone Carmen Brown MD Primary Care Provider [phone] Adam Alejo DO Unavailable [phone] Johnna Valente LOGISTICS/SHIPPER, BANK SECRECY ACT OFFICER Unavailable Marisela Chaidez APRN, BANK SECRECY ACT OFFICER Unavailable Johnathan Pugh MD Unavailable [phone] Encounter Details Date Type Department Care Team (Late st Contact Info) Description 09/22/2020 Telephone [facility] Family [facility] [address] [place] [address] Carmen Brown MD [address] [place] [address] Social History Tobacco Use Types [...] encounter Miscellaneous Notes * Telephone Encounter - Tran Gannon RN - 09/22/2020 11:43 AM CDT Called patient and scheduled video visit with Viviane De La Rosa 09/24/20 to discuss medication. * Telephone Encounter - Molly Jolley - 09/22/2020 11:22 AM CDT Patient called and would like something called in for anxiety/depression . Please call patient @[phone] documented in this encounter Plan of Treatment Upcoming Encounters Date Type Department Care Team (Late st Contact Info) Description 06/19/2024 8:00 AM SILK SCREEN LAYOUT DRAFTER [facility] 1 [place] [address] Gwen Calero, PAC [address] [place] [address] Discharge Disposition: Discharged to home or Selfcare 06/19/2024 9:00 AM SILK SCREEN LAYOUT DRAFTER [facility] 1 [facility] [place] [address] Gwen Calero, PAC [address] [place] [address] Discharge Disposition: Discharged to home or Selfcare 08/13/2024 9:00 AM CDT Office Visit [facility] - Internal Medicine - [place] [address] [place] [address] Gwen Calero, PAC [address] [place] [address] documented as of this encounter Visit Diagnoses Not on filedocumented in this encounter Additional Health Concerns Assessment Noted Time PHQ-9 Depression Total Score: 0 06/29/19 20 1:22 PM SILK SCREEN LAYOUT DRAFTER documented as of this encounter Care Teams Chain Saw Driver Relationship Specialty Start Date End Date Carmen Brown MD PCP - General Family Medicine 10/28/15 06/11/21 Adam Alejo DO Gastroenterology 01/07/16 Johnna Valente APRN, BANK SECRECY ACT OFFICER Nurse Practitioner Advanced Practice Nurse 01/07/16 Marisela Chaidez APRN, BANK SECRECY ACT OFFICER Nurse Practitioner Advanced Practice Nurse 01/07/16 Johnathan Pugh MD [address] [place] [address] Obstetrics & Gynecology 08/13/19 documented as of this encounter
--- OUTSIDE RECORDS SUMMARY | 2024-06-09 07:54 | XMS_ITS | Encounter Summary ---
Author Organization [facility] Address [address] [place] [address] Phone Care Team Providers Care Watermelon Inspector Name Role Phone Vitalymykel Adam Ramires DO Unavailable [phone] Johnna Valente HAND UMBRELLA TIPPER, MANNEQUIN SANDER AND FINISHER Unavailable Marisela Chaidez HAND UMBRELLA TIPPER, MANNEQUIN SANDER AND FINISHER Unavailable Johnathan Pugh MD Unavailable [phone] Gwen Calero Primary Care Pro vider Reason for Referral * Consult, Test & Initiate Treatment (Routine) - Closed Specialty Diagnoses / Procedures Referred By Kavon ramires Referred To Contact Behavioral Health Diagnoses ADHD (attention deficit hyperactivity disorder) evaluation Gwen Calero PAC [address] [place] [address] Phone: tel: fax: Meagan Cosme LCSW Referral ID Status Reason Start Date Expiration Date Visits Re quested Visits Authorized [id number] Closed 01/27/2022 1 1 Scheduling Instructions Shalonda is being referred for ADHD concerns Please contact patient for scheduling questions or concerns. Reason for Visit * Reason Comments ADHD Evaluation for ADD Encounter Details Date Type Department Care Team (Late Contact Info) Description 01/27/2022 1:45 PM CDT Office Visit [facility] - Internal Medicine - [place] [address] [place] [address] Gwen Calero, PAC [address] [place] [address] ADHD (attention deficit hyperactivity disorder) evaluation (Primary Dx) Discharge Disposition: Discharged to home [...] suspected to have Coronavirus/COVID-19? No / Unsure 01/27/2022 1:36 PM CDT documented as of this encounter Last Filed Vital Signs Vital Sign Reading Time Taken Comments Blood Pressure 128/80 01/27/2022 1:58 PM CDT Pulse 87 01/27/2022 1:58 PM CDT Temperature 36 ??C (96.8 ??F) 01/27/2022 1:58 PM CDT Respiratory Rate 12 01/27/2022 1:58 PM CDT Oxygen Saturation 97% 01/27/2022 1:58 PM CDT Inhaled Oxygen Concentration - - Weight 89.9 kg (198 lb 1.6 oz) 01/27/2022 1:58 P M CDT Height 160 cm (5' 3 ) 01/27/2022 1:58 PM CDT Body Mass Index 35.09 01/27/2022 1:58 PM CDT documented in this encounter Progress Notes * Estrella Swann RMA - 01/27/2022 1:45 PM CDT Shalonda Constantino, 36 y.o., female is here for ADHD (Evaluation for ADD ) Medication Refills: Patient reports/denies need for medication refills. Orders Pended: no Requested Prescriptions No prescriptions requested or ordered in this encounter Home Medications Medication Sig Start Date End Date Taking? Authorizing Provider Cholecalciferol (Vitamin D3) 2000 UNIT Capsule Take 1 Capsule by mouth daily. YOU MAY BUY THIS OVERTHE COUNTER WITHOUT PRESCRIPTION 11/06/20 Carmen Brown MD There are no discontinued medications. I have reviewed the home medication list with the patient and have reconciled discrepancies. The list is accurate to the best of my knowledge. Smoking Status: Social History Tobacco Use ??? Smoking status: Former Smoker Quit date: 05/08/2016 Years since quittin.7 ??? Smokeless tobacco: Never Used ??? Tobacco comment: occasional smoker Vaping Use ??? Vaping Use: Never used Substance Use Topics ??? Alcohol use: Yes Alcohol/week: 0.0 oz Comment: socially ??? Drug use: No Smoking Cessation Counseling Given: no Health Care Maintenance: Health Maintenance Due Topic Date Due ??? Hepatitis B Immunization (1 of 3 - 3-dose series) Never done ??? SARS-COV-2 Immunization (1) Never done ??? Pap Smear Never done Orders Pended: no The following BPA's have been addressed with the patient today: BMI, Pneumonia and Depression * Gwen aClero PAC - 01/27/2022 1:45 PM CDT Chief Complaint: Chief Complaint Patient presents with ??? ADHD Evaluation for ADD Assessment/Plan: Diagnoses and all orders for this visit: ADHD (attention deficit hyperactivity disorder) evaluation - BEHAVIORAL HEALTH REFERRAL; Future - URINE DRUG SCREEN Other orders - EluRyng 0.12-0.015 MG/24HR RING; INSERT 1 RING VAGINALLY EVERY 3 WEEKS FOR CONTINUOUS USE METHOD OF CONTROL - loperamide (IMODIUM) 2 MG Capsule - ondansetron (ZOFRAN-ODT) 4 MG TABLET DISPERSIBLE; DISSOLVE 1 TABLET UNDER THE TONGUE EVERY 8 HOURS NEEDED FOR NAUSEA - busPIRone (BUSPAR) 10 MG Tablet; Take 1 Tablet by mouth 2 times daily. Refer to [facility] today Await ADHD testing results buspar for now F/u in 1 mo to check on status Subjective: Ms. Shalonda Constantino is a 36 y.o. female here today for above. Pt feels she has ADD Unable to focus Mind all over the place Does not complete tasks Some hyperactivity Wanting tested ROS: Review of Systems Psychiatric/Behavioral: Decreased focus All other systems reviewed and are negative. VITAL SIGNS: BP Readings from Last 3 Encounters: 01/27/22 128/80 06/12/21 110/80 08/13/20 110/70 Wt Readings from Last 3 Encounters: 01/27/22 198 lb 1.6 oz (89.9 kg) 06/12/21 204 lb 4.8 oz (92.7 kg) 05/29/20 189 lb 6.4 oz (85.9 kg) Vitals: 01/27/22 1358 BP: 128/80 BP Location: Left Arm BP Position: Sitting BP Cuff Size: Regular Pulse: 87 Resp: 12 Temp: 96.8 ??F (36 ??C) TempSrc: Temporal SpO2: 97% Weight: 198 lb 1.6 oz (89.9 kg) Height: 5' 3 (1.6 m) Body mass index is 35.09 kg/m??. PHYSICAL EXAM: Physical Exam Vitals reviewed. Constitutional: Appearance: Normal appearance. HENT: Head: Normocephalic and atraumatic. Cardiovascular: Rate and Rhythm: Regular rhythm. Heart sounds: Normal heart sounds. Pulmonary: Breath sounds: Normal breath sounds. Skin: General: Skin is warm. Neurological: General: [...] Information Return in about 4 weeks (around 02/24/2022) for Acute symptom check. LOS Today OFFICE/OP [...] given to the patient. Patient (or patient auto claim representative) demonstrates verbal understanding of instructions given. [...] st Contact Info) Description 06/19/2024 8:00 AM NUCLEAR AUXILIARY OPERATOR [facility] [address] [place] [address] Gwen Calero, PAC [address] [place] [address] Discharge Disposition: Discharged to home or Selfcare 06/19/2024 9:00 AM NUCLEAR AUXILIARY OPERATOR [facility] [address] [place] [place] [address] Gwen Calero, PAC [address] [place] [address] Discharge Disposition: Discharged to home or Selfcare 08/13/2024 9:00 AM CDT Office Visit [facility] - Internal Medicine - [place] [address] [place] [address] Gwen Calero, PAC [address] [place] [address] Scheduled Orders Name Type Priority Associated Diagnoses Orde r Schedule URINE DRUG SCREEN Lab Routine ADHD (attention deficit hyperactivity disorder) evaluation Ordered: 01/27/2022 Scheduled Referrals Name Type Priority Associated Diagnoses Orde r Schedule BEHAVIORAL HEALTH REFERRAL Outpatient Referral Routine ADHD (attention deficit hyperactivity disorder) evaluation Expected: 01/27/2022, Expires: 01/27/2023 documented as of this encounter Visit Diagnoses Diagnosis ADHD (attention deficit hyperactivity disorder) evaluation- Primary Screening for other specified mental disorders and developmental handicaps documented in this encounter Additional Health Concerns Assessment Noted Time PHQ-9 Depression Total Score: 12 022 1:00 PM CDT documented as of this encounter Care Teams Watermelon Inspector Relationship Specialty Start Date End Date Gwen Calero, CECY [address] [place] [address] PCP - General Physician Pharmaceutical Sales 06/12/21 Adam Alejo DO Gastroenterology 01/07/16 Johnna Valente APRN, MANNEQUIN SANDER AND FINISHER Nurse Practitioner Advanced Practice Nurse 01/07/16 Marisela Chaidez, MICHAEL, MANNEQUIN SANDER AND FINISHER Nurse Practitioner Advanced Practice Nurse 01/07/16 Johnathan Pugh MD [address] [place] [address] Obstetrics & Gynecology 08/13/19 documented as of this encounter
--- OUTSIDE RECORDS SUMMARY | 2024-06-09 07:54 | XMS_ITS | Encounter Summary ---
Author Organization [facility] Address [address] [place] [address] Phone Care Team Providers Care Curator Herbarium Name Role Phone Carmen Brown MD Primary Care Provider Adam Alejo DO Unavailable [phone] Johnna Valente PIPE OUT WORKER, OPENSTACK CLOUD CONSULTING ARCHITECT Unavailable Marisela Chaidez PIPE OUT WORKER, OPENSTACK CLOUD CONSULTING ARCHITECT Unavailable Johnathan Pugh MD Unavailable [phone] Reason for Visit * Reason Onset Date Comments called to cancel PT evaluation today 11/28/2020 Encounter Details Date Type Department Care Team (Late st Contact Info) Description 11/28/2020 Telephone [facility] [address] [place] [address] Katei Vargas, PT [place] called to cancel PT evaluation today Social History Tobacco Use Types Packs/Day Years [...] encounter Miscellaneous Notes * Telephone Encounter - Katie Vargas, PT - 11/28/2020 11:45 AM CDT Patient called 3.5 hours before her PT evaluation to cancel because she preferred the same physicaltherapist whom she had seen previously here. Patient rescheduled her evaluation another day with her. documented in this encounter Plan of Treatment Upcoming Encounters Date Type Department Care Team (Late st Contact Info) Description 06/19/2024 8:00 AM SLATER APPRENTICE [facility] 1 [place] [address] Gwen Calero, PAC [address] [place] [address] Discharge Disposition: Discharged to home or Selfcare 06/19/2024 9:00 AM SLATER APPRENTICE [facility] 1 [place] [address] Gwen Calero, PAC [address] [place] [address] Discharge Disposition: Discharged to home or Selfcare 08/13/2024 9:00 AM CDT [facility] - [place] [address] [place] [address] Gwen Calero, PAC [address] [place] [address] documented as of this encounter Visit Diagnoses Not on filedocumented in this encounter Additional Health Concerns Assessment Noted Time PHQ-9 Depression Total Score: 15 021 11:00 AM CDT documented as of this encounter Care Teams Curator Herbarium Relationship Specialty Start Date End Date Carmen Brown MD PCP - General Family Medicine 10/28/15 06/11/21 Adam Alejo DO Gastroenterology 01/07/16 Johnna Valente APRN, OPENSTACK CLOUD CONSULTING ARCHITECT Nurse Practitioner Advanced Practice Nurse 01/07/16 Marisela Chaidez APRN, OPENSTACK CLOUD CONSULTING ARCHITECT Nurse Practitioner Advanced Practice Nurse 01/07/16 Johnathan Pugh MD [address] [place] [address] Obstetrics & Gynecology 08/13/19 documented as of this encounter
--- OUTSIDE RECORDS SUMMARY | 2024-06-09 07:54 | XMS_ITS | Encounter Summary ---
Author Organization [employer] Care Team Providers Care Ammonia Worker Name Role Phone Carmen Brown MD Primary Care Provider [phone] Adam Alejo DO Unavailable [phone] Johnna Valente TRACK WALKER, SALES SECRETARY Unavailable [phone] Marisela Chaidez TRACK WALKER, SALES SECRETARY Unavailable Johnathan Pugh MD Unavailable [phone] Encounter Details Date Type Department Care Team (Latest Contact Info) Description 09/24/2020 Travel Social History Tobacco Use Types Packs/Day [...] or on edge 3 09/24/2020 11:00 AM CDEstefania Quiroz C MA Not being able to stop or co ntrol worrying 3 09/24/2020 11:00 AM Estefania Drake C MA Worrying too much about diff erent things 3 09/24/2020 11:00 AM Estefania Drake C MA Trouble relaxing 3 09/24/2020 11:00 AM CDT Estefania Brennan CMA Being so restless that it is hard to sit still 0 09/24/2020 11:00 AM Estefania Drake C MA Becoming easily annoyed or irritable 3 09/24/2020 11:00 AM CDT Estefania Brennan C MA Feeling afraid as if somethi ng awful might happen 0 09/24/2020 11:00 AM Estefania Drake C MA BETTY-7 Total Score 15 09/24/2020 11:00 AM Estefania Drake CMA documented as of this encounter Plan of Treatment Upcoming Encounters Date Type Department Care Team (Late st Contact Info) Description 06/19/2024 8:00 AM WALL COVERING INSTALLER [facility] 1 [place] [address] Gwen Calero, PAC [address] [place] [address] Discharge Disposition: Discharged to home or Selfcare 06/19/2024 9:00 AM WALL COVERING INSTALLER [facility] 1 [place] [address] Gwen Calero, PAC [address] [place] [address] Discharge Disposition: Discharged to home or Selfcare 08/13/2024 9:00 AM CDT [facility] - [place] [address] [place] [address] Gwen Calero, PAC [address] [place] [address] documented as of this encounter Visit Diagnoses Not on filedocumented in this encounter Additional Health Concerns Assessment Noted Time PHQ-9 Depression Total Score: 15 021 11:00 AM CDT documented as of this encounter Care Teams Ammonia Worker Relationship Specialty Start Date End Date Carmen Brown MD PCP - General Family Medicine 10/28/15 06/11/21 Adam Alejo DO Gastroenterology 01/07/16 Johnna Valente APRN, SALES SECRETARY Nurse Practitioner Advanced Practice Nurse 01/07/16 Marisela Chaidez APRN, SALES SECRETARY Nurse Practitioner Advanced Practice Nurse 01/07/16 Johnathan Pugh MD [address] [place] [address] Obstetrics & Gynecology 08/13/19 documented as of this encounter
--- OUTSIDE RECORDS SUMMARY | 2024-06-09 07:54 | XMS_ITS | Encounter Summary ---
Author Organization [facility] Address [address] [place] [address] Phone Care Team Providers Care Digital Media Representative Name Role Phone Carmen Brown MD Primary Care Provider Adam Alejo DO Unavailable [phone] Johnna Valente JIG BORER, IT BUSINESS SYSTEMS ANALYST Unavailable Marisela Chaidez APRN, IT BUSINESS SYSTEMS ANALYST Unavailable Johnathan Pugh MD Unavailable [phone] Encounter Details Date Type Department Care Team (Late st Contact Info) Description 04/25/2020 Telephone [facility] [place] [address] [place] [address] Carmen Brown MD [address] [place] [address] Social History Tobacco Use Types Packs/Day Years Used Date Smoking Tobacco: Former Cigarettes Q uit: 05/08/2016 Smokeless Tobacco: Never Comments:occasional smoker Alcohol Use Standard Drinks/Week Comments Yes 0 (1 standard drink = 0.6 oz pur e alcohol) socially PHQ-2 Answer Date Recorded PHQ-2 Score 0 06/29/2019 Sexually Active Control Partners Comments Yes Male [...] suspected to have Coronavirus / COVID-19? Yes 04/24/2020 3:19 PM MACHINE TECH documented as of this encounter Miscellaneous Notes * Telephone Encounter - Ricarda Santiago RN - 04/25/2020 4:24 PM CST Pt was given the results to the rapid covid test; she verbalized understanding. Denied having any questions or concerns when asked. No signs of distress noted. INE TECH documented in this encounter Plan of Treatment Upcoming Encounters Date Type Department Care Team (Late st Contact Info) Description 06/19/2024 8:00 AM MACHINE TECH Appointment [facility] Mammography 1 [place] [address] Gwen Calero, PAC [address] [place] [address] Discharge Disposition: Discharged to home or Selfcare 06/19/2024 9:00 AM MACHINE TECH [facility] 1 [place] [address] Gwen Calero, PAC [address] [place] [address] Discharge Disposition: Discharged to home or Selfcare 08/13/2024 9:00 AM CDT [facility] - [place] [address] [place] [address] Gwen Calero, PAC [address] [place] [address] documented as of this encounter Visit Diagnoses Not on filedocumented in this encounter Additional Health Concerns Infection Onset Date Last Indicated Resolved Time COVID - 19 04/25/2020 04/25/2020 05/15/2020 12:1 8 AM MACHINE TECH Assessment Noted Time PHQ-9 Depression Total Score: 0 06/29/19 20 1:22 PM MACHINE TECH documented as of this encounter Care Teams Digital Media Representative Relationship Specialty Start Date End Date Carmen Brown MD PCP - General Family Medicine 10/28/15 06/11/21 Adam Alejo DO Gastroenterology 01/07/16 Johnna Valente JIG BORER, IT BUSINESS SYSTEMS ANALYST Nurse Practitioner Advanced Practice Nurse 01/07/16 Marisela Chaidez APRN, IT BUSINESS SYSTEMS ANALYST Nurse Practitioner Advanced Practice Nurse 01/07/16 Johnathan Pugh MD [address] [place] [address] Obstetrics & Gynecology 08/13/19 documented as of this encounter
--- OUTSIDE RECORDS SUMMARY | 2024-06-09 07:54 | XMS_ITS | Encounter Summary ---
Author Organization [facility] Address [address] [place] [address] Phone Care Team Providers Care Mental Health Counselor Name Role Phone Carmen Brown MD Primary Care Provider [phone] Adam Alejo DO Unavailable [phone] Johnna Valente SUPERVISOR POULTRY FARM, MUFFLE WORKER Unavailable [phone] Marisela Chaidez APRN, MUFFLE WORKER Unavailable Johnathan Pugh MD Unavailable [phone] Reason for Referral * PT/OT/ST (Routine) - Closed Specialty Diagnoses / Procedures Referred By Kavon lackey Referred To Contact Rehabilitation Diagnoses Chronic midline low back pain with bilateral sciatica Carmen Brown MD [address] [place] [address] Phone: tel: fax: [facility] at [address], [address] [address] Phone: tel: fax: Referral ID Status Reason Start Date Expiration Date Visits Re quested Visits Authorized [id number] Closed 11/06/2020 1 7 Scheduling Instructions Shalonda is being referred for c/c low back pain. Please contact patient for scheduling questions or concerns. See below for Shalonda's current medications, allergies and problem list. CURRENT MEDS: No current outpatient medications on file. No current facility-administered medications for this visit. ALLERGIES: No Known Allergies PROBLEM LIST: Patient Active Problem List: Gastroesophageal reflux disease Depression Chronic midline low back pain with bilateral sciatica Right calf pain Reason for Visit * Reason Comments Back Pain Encounter Details Date Type Department Care Team (Late st Contact Info) Description 11/06/2020 2:30 PM CDT Telemedicine [facility] - Primary Care - [place] [address] [place] [phone] Carmen Brown MD [address] [place] [address] Chronic midline low back pain with bilateral sciatica (Primary Dx); Right calf pain; SOB (shortness of breath); Weight gain; Vitamin D deficiency Social History Tobacco Use Types Packs/Day Years [...] PM CDT documented as of this encounter Progress Notes * Vik Cool CMA - 11/06/2020 2:30 PM CDT Shalonda Constantino is on telephone visit for Back Pain . Medications and allergies reconciled with Shalonda Constantino. * Carmen Brown MD - 11/06/2020 2:30 PM CDT Patient was assessed via video visit for a duration of 20 minutes. Patient verbally consented for this service to be performed and billed. Chief complaint: Back Pain HPI: Shalonda Constantino is a 35 y.o. female seen today for chronic low back pain. She reports having chronic low back pain for more than a year. She has gained some weight. She tried physical therapy before COVID which helped. She has not had any recent fall or injuries. Reports pain from her low backradiates to both lower extremities. Denies having any tingling or numbness in lower extremities. Denies having any weakness in lower extremities. Denies bowel or bladder incontinence or perianal areaanesthesia. Reports having and not in her right calf which causes right calf pain. Noticed it about a week ago.No known injuries or fall. Not able to walk more than a block. Has some shortness of breath but sheattributes that to recent weight gain. Did not have any recent long distance travel. Recent labs showed vitamin-D deficiency. Has not started vitamin-D supplements yet. I will start her on vitamin D3 2000 units q.d. prescription sent. Current Outpatient Medications: ??? Cholecalciferol (Vitamin D3) 2000 UNIT Capsule The past medical, surgical, family and social histories, and allergies were reviewed and updated as needed. ROS: All 14 systems reviewed and negative except as mentioned in the HPI. Physical Exam: A limited Physical Exam was performed due to the nature of the video visit. Observations include the following: Patient is alert, awake, oriented x 3. Head: atraumatic, normocephalic. Plan: 1. Chronic midline low back pain with bilateral sciatica - continue ibuprofen or Aleve OTC p.r.n. - XR LUMBAR SPINE 2 OR 3 VIEWS - PHYSICAL THERAPY REFERRAL; Future 2. Right calf pain - US RIGHT DUPLEX LOWER EXTREMITY VEINS; Future 3. SOB (shortness of breath) 4. Weight gain - probably due to weight gain. - healthy diet and exercise recommended 5. Vitamin D deficiency - start Cholecalciferol (Vitamin D3) 2000 UNIT q.d. Follow Up: Return in about 2 months (around 01/06/2021) for yearly physical, extended 30 min visit. Education materials sent via the patient's [employer] account. Carmen Brown MD This note was dictated using M*Modal fluency dictation system and there may be errors in lead project manager. Despite proof reading the note, there may be mistakes and I apologize for those. documented in this encounter Miscellaneous Notes * Addendum Note - Radha Wilson RMA - 11/06/2020 2:30 PM CDTAddended by: MARK ANTHONY WILSON on: 01/06/2021 11:15 AM Modules accepted: Orders documented in this encounter Plan of Treatment Upcoming Encounters Date Type Department Care Team (Late st Contact Info) Description 06/19/2024 8:00 AM PAYABLE PROCESSOR Appointment [facility] M[facility] [address] [place] [address] Gwen Calero, PAC [address] [place] [address] Discharge Disposition: Discharged to home or Selfcare 06/19/2024 9:00 AM PAYABLE PROCESSOR Appointment [facility] Ultrasound [address] [place] [address] Gwen Calero, PAC [address] [place] [address] Discharge Disposition: Discharged to home or Selfcare 08/13/2024 9:00 AM CDT Office Visit [facility] - Internal Medicine - [place] [address] [place] [phone] Gwen Calero, PAC [address] [place] [address] Scheduled Referrals Name Type Priority Associated Diagnoses Orde r Schedule PHYSICAL THERAPY REFERRAL Outpatient Referral Routine Chronic midline low back pain with bilateral sciatica Expected: 11/06/2020, Expires: 11/06/2021 documented as of this encounter Visit Diagnoses Diagnosis Chronic midline low back pain with bilateral sciatica- Primary Right calf pain SOB (shortness of breath) Shortness of breath Weight gain Abnormal weight gain Vitamin D deficiency Unspecified vitamin D deficiency documented in this encounter Additional Health Concerns Assessment Noted Time PHQ-9 Depression Total Score: 15 021 11:00 AM CDT documented as of this encounter Care Teams Mental Health Counselor Relationship Specialty Start Date End Date Carmen Brown MD PCP - General Family Medicine 10/28/15 06/11/21 Adam Alejo DO Gastroenterology 01/07/16 Johnna Valente APRN, MUFFLE WORKER Nurse Practitioner Advanced Practice Nurse 01/07/16 Marisela Chaidez APRN, MUFFLE WORKER Nurse Practitioner Advanced Practice Nurse 01/07/16 Johnathan Pugh MD [address] [place] [address] Obstetrics & Gynecology 08/13/19 documented as of this encounter
--- OUTSIDE RECORDS SUMMARY | 2024-06-09 07:54 | XMS_ITS | Encounter Summary ---
Author Organization [employer] Care Team Providers Care Parking Lot Manager Name Role Phone Adam Alejo DO Unavailable [phone] Johnna Valente EARLY CHILDHOOD ASSISTANT, MASONRY INSPECTOR Unavailable [phone] Marisela Chaidez EARLY CHILDHOOD ASSISTANT, MASONRY INSPECTOR Unavailable Johnathan Pugh MD Unavailable [phone] Gwen Calero PAC Primary Care Pro vider Encounter Details Date Type Department Care Team (Latest Contact Info) Description 02/05/2022 Travel Social History Tobacco Use Types Packs/Day [...] Upcoming Encounters Date Type Department Care Team ( Contact Info) Description 06/19/2024 8:00 AM HEEL NAILING MACHINE OPERATOR [facility] [address] [place] [address] Gwen Calero, PAC [address] [place] [address] Discharge Disposition: Discharged to home or Selfcare 06/19/2024 9:00 AM HEEL NAILING MACHINE OPERATOR [facility] [address] [place] [address] Gwen Calero, PAC [address] [place] [address] Discharge Disposition: Discharged to home or Selfcare 08/13/2024 9:00 AM CDT Office Visit [facility] - Internal Medicine - [place] [address] [place] [phone] Gwen Calero, PAC [address] [place] [address] documented as of this encounter Visit Diagnoses Not on filedocumented in this encounter Additional Health Concerns Assessment Noted Time PHQ-9 Depression Total Score: 12 01/27/2 022 1:00 PM CDT documented as of this encounter Care Teams Parking Lot Manager Relationship Specialty Start Date End Date Gwen Calero, PAC [address] [place] [address] PCP - General Physician Cement Production Plant Operator 06/12/21 Adam Alejo DO Gastroenterology 01/07/16 Johnna Valente, EARLY CHILDHOOD ASSISTANT, MASONRY INSPECTOR Nurse Practitioner Advanced Practice Nurse 01/07/16 Marisela Chaidez, MICHAEL, MASONRY INSPECTOR Nurse Practitioner Advanced Practice Nurse 01/07/16 Johnathan Pugh MD [address] [place] [address] Obstetrics & Gynecology 08/13/19 documented as of this encounter
--- OUTSIDE RECORDS SUMMARY | 2024-06-09 07:54 | XMS_ITS | Encounter Summary ---
Author Organization [facility] Care Team Providers Care Webfed Offset Press Operator Name Role Phone Carmen Brown MD Primary Care Provider [phone] Adam Alejo DO Unavailable [phone] Johnna Valente ELECTRICAL POWER STATION TECHNICIAN, CHILD DAY CARE TEACHER Unavailable [phone] Marisela Chaidez ELECTRICAL POWER STATION TECHNICIAN, CHILD DAY CARE TEACHER Unavailable Johnathan Pugh MD Unavailable [phone] Encounter Details Date Type Department Care Team (Latest Contact Info) Description 07/07/2020 Travel Social History Tobacco Use Types Packs/Day [...] COVID-19? No / Unsure 07/07/2020 11:37 AM MOOSE HUNTER documented as of this encounter Plan of Treatment Upcoming Encounters Date Type Department Care Team (Late st Contact Info) Description 06/19/2024 8:00 AM MOOSE HUNTER [facility] [address] [place] [address] Gwen Calero, PAC [address] [place] [address] Discharge Disposition: Discharged to home or Selfcare 06/19/2024 9:00 AM MOOSE HUNTER [facility] [address] [place] [address] Gwen Calero, PAC [address] [place] [address] Discharge Disposition: Discharged to home or Selfcare 08/13/2024 9:00 AM CDT [facility] - [place] [address] [facility] [phone] Gwen Calero, PAC [address] [place] [address] documented as of this encounter Visit Diagnoses Not on filedocumented in this encounter Additional Health Concerns Assessment Noted Time PHQ-9 Depression Total Score: 0 06/29/19 20 1:22 PM MOOSE HUNTER documented as of this encounter Care Teams Webfed Offset Press Operator Relationship Specialty Start Date End Date Carmen Brown MD PCP - General Family Medicine 10/28/15 06/11/21 Adam Alejo DO Gastroenterology 01/07/16 Johnna Valente APRN, CHILD DAY CARE TEACHER Nurse Practitioner Advanced Practice Nurse 01/07/16 Marisela Chaidez APRN, CHILD DAY CARE TEACHER Nurse Practitioner Advanced Practice Nurse 01/07/16 Johnathan Pugh MD [address] [facility] [address] [facility] [address] [place] [address] Obstetrics & Gynecology 08/13/19 documented as of this encounter
--- OUTSIDE RECORDS SUMMARY | 2024-06-09 07:54 | XMS_ITS | Encounter Summary ---
Author Organization [facility] Address [address] [place] [address] Phone Care Team Providers Care Stonehand Name Role Phone Adam Alejo DO Unavailable [phone] Johnna Valente ENGLISH LANGUAGE ARTS TEACHER, GRAZING EXAMINER Unavailable Marisela Chaidez ENGLISH LANGUAGE ARTS TEACHER, GRAZING EXAMINER Unavailable Johnathan Pugh MD Unavailable [phone] Gwen Calero PAC Primary Care Pro vider Reason for Referral * Radiology Services (Routine) - Closed Specialty Diagnoses / Procedures Referred By Kavon lackey Referred To Contact Radiology Diagnoses Upper abdominal pain Procedures US ABDOMEN LIMITED LEVEL 3 THREE ORGAN Jerel Pinedo MD [address] [place] [address] Phone: tel: fax: Referral ID Status Reason Start Date Expiration Date Visits Re quested Visits Authorized [id number] Closed 01/19/2022 1 1 Reason for Visit * Radiology Services (Routine) - Closed Specialty Diagnoses / Procedures Referred By Kavon lackey Referred To Contact Radiology Diagnoses Upper abdominal pain Procedures US ABDOMEN LIMITED LEVEL 3 THREE ORGAN Jerel Pinedo MD [address] [place] [address] Phone: tel: fax: Referral ID Status Reason Start Date Expiration Date Visits Re quested Visits Authorized [id number] Closed 01/19/2022 1 1 Encounter Details Date Type Department Care Team (Late st Contact Info) Description 02/05/2022 8:48 AM CDT - 02/05/2022 11:59 PM CDT Hospital Encounter [facility] Ultrasound [address] [place] [address] Jerel Pinedo MD [address] [place] [address] Discharge Disposition: Discharged to home or Selfcare [...] AM CDT documented as of this encounter Medications at Time of Discharge busPIRone (BUSPAR) 10 MG Tablet Take 1 Tablet by mouth 2 times daily. 60 Tablet 1 01/27/2022 2 Cholecalciferol (Vitamin D3) 2000 UNIT CapsuleIndication s:Vitamin D deficiency Take 1 Capsule by mouth daily. YOU MAY BUY THIS OVER THE COUNTER WITHOUT PRESCRIPTION 90 Capsule 1 11/06/2020 2 EluRyng 0.12-0.015 MG/24HR RING INSERT 1 RING [...] Contact Info) Description 06/19/2024 8:00 AM SOFTWARE CONSULTANT [facility] [address] [place] [address] Gwen Calero, PAC [address] [place] [address] Discharge Disposition: Discharged to home or Selfcare 06/19/2024 9:00 AM SOFTWARE CONSULTANT [facility] [address] [place] [address] Gwen Calero, PAC [address] [place] [address] Discharge Disposition: Discharged to home or Selfcare 08/13/2024 9:00 AM CDT Office Visit [facility] - Internal Medicine - [place] [address] [place] [phone] Gwen Calero, PAC [address] [place] [address] documented as of this encounter Procedures Procedure Name Priority Date/Time Associated Diagnosis Comments US ABDOMEN LIMITED LEVEL 3 THREE ORGAN Routine 02/05/2022 9:16 AM CDT Upper abdominal pain documented in this encounter Results * US LIVER, PANCREAS [...] Electronically signed by ??Carlos Hogan M.D. CH: D: ??02/05/2022 7:02 PM T: ??02/05/2022 7:02 PM Report ID: [id number] Reading Location: ??[id number] Procedure Note Carlos Hogan Jr., MD - [...] Electronically signed by Carlos Hogan M.D. CH: Report ID: [id number] Reading Location: [id number] IMPRESSION: Negative right upper quadrant ultrasound. us Jerel Pinedo MD IMG US ORDERABLES Final Res ult documented in this encounter Visit Diagnoses Diagnosis Upper abdominal pain Abdominal pain, other specified site documented in this encounter Additional Health Concerns Assessment Noted Time PHQ-9 Depression Total Score: 12 022 1:00 PM CDT documented as of this encounter Care Teams Stonehand Relationship Specialty Start Date End Date Gwen Calero, CECY [address] [place] [address] PCP - General Physician Mold Press Operator 06/12/21 Adam Alejo DO Gastroenterology 01/07/16 Johnna Valente APRN, GRAZING EXAMINER Nurse Practitioner Advanced Practice Nurse 01/07/16 Marisela Chaidez APRN, GRAZING EXAMINER Nurse Practitioner Advanced Practice Nurse 01/07/16 Johnathan Pugh MD [address] [address] Obstetrics & Gynecology 08/13/19 documented as of this encounter
--- OUTSIDE RECORDS SUMMARY | 2024-06-09 07:54 | XMS_ITS | Encounter Summary ---
Author Organization [facility] Address [address] [place] [address] Phone Care Team Providers Care Supervisor Sunglasses Name Role Phone Carmen Borwn MD Primary Care Provider Adam Alejo DO Unavailable [phone] Johnna Valente APRN, LEAF TINNER Unavailable Marisela Chaidez APRN, LEAF TINNER Unavailable Johnathan Pugh MD Unavailable [phone] Reason for Visit * Reason Comments Lump under right arm. Pat ient c/o sensitivity and increase in size Encounter Details Date Type Department Care Team (Late st Contact Info) Description 05/29/2020 9:45 AM YEAST STACKER Office Visit [facility] - Primary Care - [place] [address] [place] [address] Viviane De La Rosa APRN, LEAF TINNER [address] [place] [address] Axillary mass, right (Primary Dx); Encounter for immunization; Preventative health care (Adult) Discharge Disposition: Discharged to home or Selfcare [...] Coronavirus / COVID-19? Yes 05/29/2020 9:47 AM YEAST STACKER documented as of this encounter Last Filed Vital Signs Vital Sign Reading Time Taken Comments Blood Pressure 138/82 05/29/2020 9:50 AM YEAST STACKER Pulse 68 05/29/2020 9:50 AM YEAST STACKER Temperature 36.2 ??C (97.1 ??F) 05/29/2020 9:50 AM CS T Respiratory Rate 20 05/29/2020 9:50 AM YEAST STACKER Oxygen Saturation 98% 05/29/2020 9:50 AM YEAST STACKER Inhaled Oxygen Concentration - - Weight 85.9 kg (189 lb 6.4 oz) 05/29/2020 9:50 A M YEAST STACKER Height 160 cm (5' 3 ) 05/29/2020 9:50 AM YEAST STACKER Body Mass Index 33.55 05/29/2020 9:50 AM YEAST STACKER documented in this encounter Patient Instructions * Patient Instructions* Viviane De La Rosa APN, CNP - 05/29/2020 9:45 AM YEAST STACKER Have routine fasting labs, follow-up for preventative exam afterwards. If any new or worsening symptoms occur, please call office. T STACKER documented in this encounter Progress Notes * Estefania Lee CMA - 05/29/2020 9:45 AM CST Shalonda Constantino, 34 y.o., female is here for Lump (under right arm. Patient c/o sensitivity and increase in size ) Medication Refills: Patient reports/denies need for medication refills. Orders Pended: no Requested Prescriptions No prescriptions requested or ordered in this encounter Home Medications Medication Sig Start Date End Date Taking? Authorizing Provider amitriptyline (ELAVIL) 25 MG Tablet TAKE 1 TABLET BY MOUTH EVERY EVENING Patient not taking: Reported on 05/29/2020 10/04/19 Carmen Brown MD amitriptyline (ELAVIL) 50 MG Tablet Take 1 Tab by mouth nightly. Patient not taking: Reported on 05/29/2020 09/13/19 Carmen Brown MD Etonogestrel-Ethinyl Estradiol (NUVARING) 0.12-0.015 MG/24HR RING 1 Each by Vaginal route. Yes Provider, MD Sam ibuprofen (MOTRIN) 800 MG Tablet TAKE 1 TAB BY MOUTH EVERY 8 HOURS NEEDED FOR MILD OR MORE SEVERE PAIN. 10/11/19 Yes Carmen Brown MD There are no discontinued medications. I have reviewed the home medication list with the patient and have reconciled discrepancies. The list is accurate to the best of my knowledge. Smoking Status: Social History Tobacco Use ??? Smoking status: Former Smoker Quit date: 05/08/2016 Years since quittin.0 ??? Smokeless tobacco: Never Used ??? Tobacco comment: occasional smoker Substance Use Topics ??? Alcohol use: Yes Alcohol/week: 0.0 oz Comment: socially ??? Drug use: No Smoking Cessation Counseling Given: no Health Care Maintenance: Health Maintenance Due Topic Date Due ??? Pap Smear 2006 ??? Influenza Immunization (1) 02/05/2020 Orders Pended: no The following BPA's have been addressed with the patient today: N/A T STACKER * Estefania Lee CMA - 05/29/2020 9:45 AM CST Shalonda is here for Flu immunizations per order of Viviane De La Rosa [facility] dated 05/29/20. Administered in left deltoid . Vaccine Information Sheet(s) were given on 05/29/20. Verbal consent was obtained. Shalonda tolerated the immunization well without incident. See Immunization activity for details. T STACKER * Viviane De La Rosa, CAYLA, LEAF TINNER - 05/29/2020 9:45 AM CST HPI Patient is a 34 y.o. female who presents today for axillary mass and weight. Patient was seen for right axillary mass via video visit, she then had an ultrasound which showed alymph node that was not enlarged. Patient states she is currently still breast-feeding her 3-year-old. Trialed breast feeds nightly. States that she will go but 24 hours between feedings whenever shegets towards the end of the days she noticed that it is increased in size and more tender. She states she tries not to touch it. She states she has tried to massage it without relief. Weight: She states she has changed her diet drastically and still cannot lose weight and is only getting. She has not had labs done in close to 3 years. ROS Fourteen point review of systems negative except as documented in HPI. Physical Exam Vitals signs and nursing note reviewed. Constitutional: General: She is not in acute distress. Appearance: She is well-developed. HENT: Head: Normocephalic and atraumatic. Right Ear: External ear normal. Left Ear: External ear normal. Eyes: Conjunctiva/sclera: Conjunctivae normal. Cardiovascular: Rate and Rhythm: Normal rate. Pulmonary: Effort: Pulmonary effort is normal. No respiratory distress. Chest: Comments: Right axillary mass palpated with deep palpation and only when patient is lying on her left side. Skin: General: Skin is warm and dry. Neurological: Mental Status: She is alert and oriented to person, place, and time. Psychiatric: Behavior: Behavior normal. Thought Content: Thought content normal. Judgment: Judgment normal. Vitals: 05/29/20 0950 BP: 138/82 BP Location: Right Arm BP Position: Sitting BP Cuff Size: Regular Pulse: 68 Resp: 20 Temp: 97.1 ??F (36.2 ??C) TempSrc: Temporal SpO2: 98% Weight: 189 lb 6.4 oz (85.9 kg) Height: 5' 3 (1.6 m) Body mass index is 33.55 kg/m??. Past, family, and social history reviewed and updated in the chart. Assessment/Plan: 1. Axillary mass, right Suspect mild that, encouraged massage area and warm compresses, if any new or worsening symptoms call office 2. Encounter for immunization - INFLUENZA VACCINE QUAD IM - INFLUENZA (>3) IMMUNIZATION QUESTIONS 3. Preventative health exam - COMPLETE BLOOD COUNT (CBC) WITH DIFF; Future - CMP (COMPREHENSIVE METABOLIC PANEL); Future - LIPID PANEL; Future - THYROID SCREEN WITH REFLEX; Future - VITAMIN D, 25 HYDROXY TOTAL; Future - VITAMIN B12; Future Patient Instructions Have routine fasting labs, follow-up for preventative exam afterwards. If any new or worsening symptoms occur, please call office. Patient verbalizes understanding and agrees with plan of care as noted above. New medication discussed with patient and family, including action of medication, potential side effects, interactions, and consequences for not taking it. Patient states understanding of new medication instructions. Written education on new medication added to patient printed AVS. An After Visit Summary was printed and given to the patient. Documentation for this visit on 05/29/20 was completed using a template. I have seen and examined the patient. Everything documented was personally performed at this visit with the necessary additions, deletions and changes made as appropriate. T STACKER documented in this encounter Plan of Treatment Upcoming Encounters Date Type Department Care Team (Late st Contact Info) Description 06/19/2024 8:00 AM YEAST STACKER [facility] [address] [place] [address] Gwen Calero, CECY [address] [place] [address] Discharge Disposition: Discharged to home or Selfcare 06/19/2024 9:00 AM YEAST STACKER [facility] [address] [place] [address] Gwen Calero, PAC [address] [place] [address] Discharge Disposition: Discharged to home or Selfcare 08/13/2024 9:00 AM CDT Office Visit [facility] - Internal Medicine - [place] [address] [place] [address] Gwen Calero, PAC [address] [place] [address] documented as of this encounter Results * VITAMIN B12 (08/10/2020 9:01 AM YEAST STACKER) VITAMIN B12 366 243 - 894 pg/mL 08/10/2020 10:44 AM YEAST STACKER [facility] Blood Venipuncture / Unknown 08/10/2020 9:01 AM YEAST STACKER 08/10/2020 10:04 AM YEAST STACKER Viviane De La Rosa APRN, CNP CHEMISTRY ORDER JOSE Final Result [facility] [address] [place] [address] * (ABNORMAL) VITAMIN D, 25 HYDROXY TOTAL (08/10/2020 9:01 AM YEAST STACKER) VITAMIN D, 25 HYDROX 21(L) >=30 ng/mL 08/10/2020 10:45 AM YEAST STACKER [facility] Blood Venipuncture / Unknown 08/10/2020 9:01 AM YEAST STACKER 08/10/2020 10:04 AM YEAST STACKER Narrative [facility] - 08/10/2020 10:45 AM YEAST STACKER Published reference ranges for Vitamin D vary depending on time and place and method of testing, and on patient's age, sex, ethnicity and levels of other measured analytes such as parathormone, calcium and phosphorus. ??The result should be evaluated in conjunction with clinical findings and suspicions. [place] of [employer] and Endocrine Clinical Practice Guidelines: Status Vitamin D levels (ng/mL) Deficient <=20 At risk of inadequacy 21-29 Sufficient 30-100 Centers of Disease Control and Prevention Guidelines: Status Vitamin D levels (ng/mL) Deficient <13 At risk of inadequacy 13-19 Sufficient 20-50 Possibly harmful >50 References: [place] [employer], 2010 Dietary reference intakes for calcium and vitamin D. [place]: ??The National Academies Press. Vesta M, Kennedy N, Xavi GILMAN, et al., Evaluation, treatment, and prevention of Vitamin D deficiency: an Endocrinology Clinical Practice Guideline. JCEM 2011 96: 7 5091-9614. [place] A, Beka C, Delilah D, et al., Vitamin D Status: ??[place], 2000- 1005, [facility] data brief, no. 59, MD Simon: ??Formerly [facility] for Health Statistics. 2011. Viviane De La Rosa APRN, CNP CHEMISTRY ORDER JOSE Final Result [facility] [address] [place] [address] * (ABNORMAL) LIPID PANEL (08/10/2020 9:01 AM YEAST STACKER) CHOLESTEROL 136 <=200 mg/dL 08/10/2020 10:26 AM YEAST STACKER [facility] TRIGLYCERIDES 206(H) <150 mg/dL 08/10/2020 10:26 AM [facility] HDL CHOLESTEROL 28.0(L) >40 mg/dL 10:26 AM [facility] LDL 67 5 - 130 mg/dL 08/10/2020 10:26 AM [facility] VLDL 41 5 - 55 mg/dL 08/10/2020 10:26 AM [facility] CHOL/HDL RATIO 4.9(H) 0.0 - 4.4 08/10/2020 10:26 AM YEAST STACKER [facility] NON-HDL CHOLESTEROL 108 <130 mg/dL 08/10/2020 10:26 AM [facility] IS THE PATIENT REQUIRED TO BE FASTING? Yes 08/10/2020 10:26 AM [facility] HAS THE PATIENT BEEN FASTING? Yes 08/10/2020 10:26 AM [facility] Blood Venipuncture / Unknown 08/10/2020 9:01 AM YEAST STACKER 08/10/2020 10:04 AM YEAST STACKER Viviane De La Rosa APRN, CNP CHEMISTRY ORDER JOSE Final Result [facility] [address] [place] [address] * (ABNORMAL) CMP (COMPREHENSIVE METABOLIC PANEL) (08/10/2020 9:01 AM YEAST STACKER) SODIUM 137 136 - 144 mmol/L 08/10/2020 10:26 AM [facility] POTASSIUM 4.3 3.5 - 5.1 mmol/L 08/10/2020 10:26 AM [facility] CHLORIDE 106 100 - 110 mmol/L 08/10/2020 10:26 AM [facility] CO2, VENOUS 21(L) 22 - 32 mmol/L 08/10/2020 10:26 AM [facility] ANION GAP 14.3 8.0 - 20.0 mmol/L 08/10/2020 10:26 AM [facility] GLUCOSE 99 70 - 99 mg/dL 08/10/2020 10:26 AM [facility] BUN 10 6 - 20 mg/dL 08/10/2020 10:26 AM [facility] CREATININE, BLOOD 0.83 0.60 - 1.10 mg/dL 08/10/2020 10:26 AM [facility] BUN/CREATININE RATIO 12 12 - 20 ratio 08/10/2020 10:26 AM [facility] TOTAL PROTEIN 7.0 6.0 - 8.3 g/dL 08/10/2020 10:26 AM [facility] ALBUMIN 4.2 3.5 - 5.2 g/dL 08/10/2020 10:26 AM [facility] Comment: The colormetric methods used for the determination of Albumin may lead to falsely elevated test results in patients suffering from renal failure or insufficiency due to interference with other proteins. A/G RATIO 1.5 1.0 - 2.0 08/10/2020 10:26 AM [facility] CALCIUM 9.1 8.9 - 10.3 mg/dL 08/10/2020 10:26 AM [facility] T BILI 0.3 <=1.2 mg/dL 08/10/2020 10:26 AM [facility] SGOT (AST) 15 <=32 U/L 08/10/2020 10:26 AM [facility] SGPT (ALT) 15 <=41 U/L 08/10/2020 10:26 AM [facility] ALKALINE PHOSPHATASE 47 35 - 105 U/L 08/10/2020 10:26 AM [facility] GFR, EST. NONAFRICAN >60 >=60 08/10/2020 10:26 AM [facility] GFR, EST. >60 >=60 021 10:26 AM [facility] Comment: Creatinine Clearance is the preferred criteria for selecting drug dose adjustments in renally impaired patients. ??The GFR is provided as additional pertinent clinical information. GFR is reported in mL/min/1.73 sq m. IS THE PATIENT REQUIRED TO BE FASTING? No 08/10/2020 10:26 AM [facility] Blood Venipuncture / Unknown 08/10/2020 9:01 AM YEAST STACKER 08/10/2020 10:04 AM [facility] Viviane De La Rosa APRN, CNP CHEMISTRY ORDER JOSE Final Result [facility] [address] [place] [address] documented in this encounter Visit Diagnoses Diagnosis Axillary mass, right- Primary Encounter for immunization Need for other specified prophylactic vaccination against single bacterial disease Preventative health care (Adult) Routine general medical examination at a health care facility documented in this encounter Additional Health Concerns Assessment Noted Time PHQ-9 Depression Total Score: 0 06/29/19 20 1:22 PM YEAST STACKER documented as of this encounter Care Teams Supervisor Sunglasses Relationship Specialty Start Date End Date Carmen Brown MD PCP - General Family Medicine 10/28/15 06/11/21 Adam Alejo DO Gastroenterology 01/07/16 Johnna Valente APRN, LEAF TINNER Nurse Practitioner Advanced Practice Nurse 01/07/16 Marisela Chaidez APRN, LEAF TINNER Nurse Practitioner Advanced Practice Nurse 01/07/16 Johnathan Pugh MD [address] [place] [address] Obstetrics & Gynecology 08/13/19 documented as of this encounter
--- OUTSIDE RECORDS SUMMARY | 2024-06-09 07:54 | XMS_ITS | Encounter Summary ---
Author Organization [facility] Address [address] [place] [address] Phone Care Team Providers Care Cone Tender Name Role Phone Adam Alejo DO Unavailable [phone] Johnna Valente LOOSE HAND PACKER, MANAGER KNOWLEDGE Unavailable Marisela Chaidez LOOSE HAND PACKER, MANAGER KNOWLEDGE Unavailable Johnathan Pugh MD Unavailable [phone] Gwen Calero PAC Primary Care Pro vider Reason for Visit * Reason Comments Hypertension week ago Encounter Details Date Type Department Care Team (Late st Contact Info) Description 06/12/2021 11:15 AM GRAVE CLEANER Office Visit [facility] - Internal Medicine - [place] [address] [place] [id number] Gwen Calero, PAC [address] [place] [address] Elevated blood pressure reading (Primary Dx); Well adult exam Discharge Disposition: Discharged to home or Selfcare [...] COVID-19? No / Unsure 06/12/2021 11:07 AM GRAVE CLEANER documented as of this encounter Last Filed Vital Signs Vital Sign Reading Time Taken Comments Blood Pressure 110/80 06/12/2021 11:25 AM GRAVE CLEANER Pulse 79 06/12/2021 11:25 AM GRAVE CLEANER Temperature 36.7 ??C (98 ??F) 06/12/2021 11:25 AM GRAVE CLEANER Respiratory Rate 12 06/12/2021 11:25 AM GRAVE CLEANER Oxygen Saturation 97% 06/12/2021 11:25 AM GRAVE CLEANER Inhaled Oxygen Concentration - - Weight 92.7 kg (204 lb 4.8 oz) 06/12/2021 11:25 AM GRAVE CLEANER Height 160 cm (5' 3 ) 06/12/2021 11:25 AM GRAVE CLEANER Body Mass Index 36.19 06/12/2021 11:25 AM GRAVE CLEANER documented in this encounter Patient Instructions * Patient Instructions* Gwen Calero, PAC - 06/12/2021 11:15 AM GRAVE CLEANER Images from the original note were not included. Immunization Schedule, 27-49 Years Old Vaccines are usually given at various ages, according to a schedule. Your health care provider willrecommend vaccines for you based on your age, medical history, and lifestyle or other factors, suchas travel or where you work. You may receive vaccines as individual doses or as more than one vaccine together in one shot (combination vaccines). Talk with your health care provider about the risks and benefits of combination vaccines. Recommended immunizations for 27-49 years old Influenza vaccine ?? You should get a dose of the influenza vaccine every year. Tetanus, diphtheria, and pertussis vaccine A vaccine that protects against tetanus, diphtheria, and pertussis is known as the Tdap vaccine. A vaccine that protects against tetanus and diphtheria is known as the Td vaccine. ?? You should only get the Td vaccine if you have had at least 1 dose of the Tdap vaccine. ?? You should get 1 dose of the Td or Tdap vaccine every 10 years, or you should get 1 dose of the Tdap vaccine if: ? You have not previously gotten a Tdap vaccine. ? You do not know if you have ever gotten a Tdap vaccine. ? You are between 27 and 36 weeks . Measles, mumps, and rubella vaccine This is also known as the MMR vaccine. You may need to get the MMR vaccine if: ?? You need to catch up on doses you missed in the past. ?? You have not been given the vaccine before. ?? You do not have evidence of immunity (by a blood test). women should not get the MMR vaccine during because it may be harmful to the unborn baby. However, if you are not immune to measles, mumps, or rubella, you should get a dose of MMRvaccine one month or more before or within days after delivery. Varicella vaccine This is also known as the VALERIY vaccine. You may need to get the VALERIY vaccine if you were born in 1979or later and: ?? You need to catch up on doses you missed in the past. ?? You have not been given the vaccine before. ?? You do not have evidence of immunity (by a blood test). ?? You have certain high-risk conditions, such as HIV or AIDS. women should not get the VALERIY vaccine during because it may be harmful to the unborn baby. However, if you are not immune to chickenpox (varicella), you should get a dose of the VARvaccine within days after delivery. Human papillomavirus vaccine This is also known as the HPV vaccine. If you have not gotten the vaccine before or you missed doses in the past, talk to your health care provider about whether it is appropriate for you to get the HPV vaccine. Pneumococcal conjugate vaccine This is also known as the PCV13 vaccine. You should get the PCV13 vaccine as recommended if you have certain high-risk conditions. These include: ?? Diabetes. ?? Chronic conditions of the heart, lungs, or liver. ?? Conditions that affect the body's disease-fighting system (immune system). Pneumococcal polysaccharide vaccine This is also known as the PPSV23 vaccine. You should get the PPSV23 vaccine as recommended if you have certain high-risk conditions. These include: ?? Diabetes. ?? Chronic conditions of the heart, lungs, or liver. ?? Conditions that affect the immune system. Hepatitis A vaccine This is also known as the HepA vaccine. If you did not get the HepA vaccine previously, you should get it if: ?? You are at risk for a hepatitis A infection. You may be at risk for infection if you: ? Have chronic liver disease. ? Have HIV or AIDS. ? Are a man who has sex with men. ? Use drugs. ? Are homeless. ? May be exposed to hepatitis A through work. ? Travel to countries where hepatitis A is common. ? Are . ? Have or will have close contact with someone who was adopted from another country. ?? You are not at risk for infection but want protection from hepatitis A. Hepatitis B vaccine This is also known as the HepB vaccine. If you did not get the HepB vaccine previously, you should get it if: ?? You are at risk for hepatitis B infection. You are at risk if you: ? Have chronic liver disease. ? Have HIV or AIDS. ? Have sex with a partner who has hepatitis B, or: ?? You have multiple sex partners. ?? You are a man who has sex with men. ? Use drugs. ? May be exposed to hepatitis B through work. ? Live with someone who has hepatitis B. ? Receive dialysis treatment. ? Have diabetes. ? Travel to countries where hepatitis B is common. ? Are . ?? You are not at risk of infection but want protection from hepatitis B. Meningococcal conjugate vaccine This is also known as the MenACWY vaccine. You may need to get the MenACWY vaccine if you: ?? Have not been given the vaccine before. ?? Need to catch up on doses you missed in the past. This vaccine is especially important if you: ?? Do not have a spleen. ?? Have sickle cell disease. ?? Have HIV. ?? Take medicines that suppress your immune system. ?? Travel to countries where meningococcal disease is common. ?? Are exposed to Neisseria meningitidis at work. Serogroup B meningococcal vaccine This is also known as the MenB vaccine. You may need to get the MenB vaccine if you: ?? Have not been given the vaccine before. ?? Need to catch up on doses you missed in the past. This vaccine is especially important if you: ?? Do not have a spleen. ?? Have sickle cell disease. ?? Take medicines that suppress your immune system. ?? Are exposed to Neisseria meningitidis at work. Haemophilus influenzae type b vaccine This is also known as the Hib vaccine. Anyone older than 5 years of age is usually not given the Hib vaccine. However, if you have certain high-risk conditions, you may need to get this vaccine. These conditions include: ?? Not having a spleen. ?? Having received a stem cell transplant. Before you get a vaccine: Talk with your health care provider about which vaccines are right for you. This is especially important if: ?? You previously had a reaction after getting a vaccine. ?? You have a weakened immune system. You may have a weakened immune system if you: ? Are taking medicines that reduce (suppress) the activity of your immune system. ? Are taking medicines to treat cancer (chemotherapy). ? Have HIV or AIDS. ?? You work in an environment where you may be exposed to a disease. ?? You plan to travel outside of the country. ?? You have a chronic illness, such as heart disease, kidney disease, diabetes, or lung disease. ?? You are , think you may be , or are planning to become . Summary ?? Before you get a vaccine, tell your health care provider if you have reacted to vaccines in the past or have a condition that weakens your immune system. ?? At 27-49 years, you should get a dose of the influenza vaccine every year and a dose of the Td or Tdap vaccine every 10 years. ?? Depending on your medical history and your risk factors, you may need other vaccines. Ask your health care provider whether you are up to date on all your vaccines. ?? Women who are may not receive certain vaccines. Ask your health care provider whether you should receive any vaccines soon after you deliver your baby. This information is not intended to replace advice given to you by your health care provider. Make sure you discuss any questions you have with your health care provider. Document Revised: 03/19/2020 Document Reviewed: 03/19/2020 Medication Review Patient Education ?? 2020 [employer] Inc[employer] Preventive Care 21-39 Years Old, Female Preventive care refers to lifestyle choices and visits with your health care provider that can promote health and wellness. This includes: ?? A yearly physical exam. This is also called an annual wellness visit. ?? Regular dental and eye exams. ?? Immunizations. ?? Screening for certain conditions. ?? Healthy lifestyle choices, such as: ? Eating a healthy diet. ? Getting regular exercise. ? Not using drugs or products that contain nicotine and tobacco. ? Limiting alcohol use. What can I expect for my preventive care visit? Physical exam Your health care provider may check your: ?? Height and weight. These may be used to calculate your BMI (body mass index). BMI is a measurement that tells if you are at a healthy weight. ?? Heart rate and blood pressure. ?? Body temperature. ?? Skin for abnormal spots. Counseling Your health care provider may ask you questions about your: ?? Past medical problems. ?? Family's medical history. ?? Alcohol, tobacco, and drug use. ?? Emotional well-being. ?? Home life and relationship well-being. ?? Sexual activity. ?? Diet, exercise, and sleep habits. ?? Work and work environment. ?? Access to firearms. ?? Method of control. ?? Menstrual cycle. ?? history. What immunizations do I need? Vaccines are usually given at various ages, according to a schedule. Your health care provider willrecommend vaccines for you based on your age, medical history, and lifestyle or other factors, suchas travel or where you work. What tests do I need? Blood tests ?? Lipid and cholesterol levels. These may be checked every 5 years starting at age 20. ?? Hepatitis C test. ?? Hepatitis B test. Screening ?? Diabetes screening. This is done by checking your blood sugar (glucose) after you have not eatenfor a while (fasting). ?? STD (sexually transmitted disease) testing, if you are at risk. ?? BRCA-related cancer screening. This may be done if you have a family history of breast, ovarian,tubal, or peritoneal cancers. ?? Pelvic exam and Pap test. This may be done every 3 years starting at age 21. Starting at age 30,this may be done every 5 years if you have a Pap test in combination with an HPV test. Talk with your health care provider about your test results, treatment options, and if necessary, the need for more tests. Follow these instructions at home: Eating and drinking ?? Eat a healthy diet that includes fresh fruits and vegetables, whole grains, lean protein, and low-fat dairy products. ?? Take vitamin and mineral supplements as recommended by your health care provider. ?? Do not drink alcohol if: ? Your health care provider tells you not to drink. ? You are , may be , or are planning to become . ?? If you drink alcohol: ? Limit how much you have to 0-1 drink a day. ? Be aware of how much alcohol is in your drink. In the [place] one drink equals one 12 oz bottle of beer (355 mL), one 5 oz glass of wine (148 mL), or one 1?? oz glass of hard liquor (44 mL). Lifestyle ?? Take daily care of your teeth and gums. [place] your teeth every morning and night with fluoride toothpaste. Floss one time each day. ?? Stay active. Exercise for at least 30 minutes 5 or more days each week. ?? Do not use any products that contain nicotine or tobacco, such as cigarettes, e-cigarettes, and chewing tobacco. If you need help quitting, ask your health care provider. ?? Do not use drugs. ?? If you are sexually active, practice safe sex. Use a condom or other form of control (contraception) in order to prevent and STIs (sexually transmitted infections). If you plan to become , see your health care provider for a pre-conception visit. ?? Find healthy ways to cope with stress, such as: ? Meditation, yoga, or listening to music. ? Journaling. ? Talking to a trusted person. ? Spending time with friends and family. Safety ?? Always wear your seat belt while driving or riding in a vehicle. ?? Do not drive: ? If you have been drinking alcohol. Do not ride with someone who has been drinking. ? When you are tired or distracted. ? While texting. ?? Wear a helmet and other protective equipment during sports activities. ?? If you have firearms in your house, make sure you follow all gun safety procedures. ?? Seek help if you have been physically or sexually abused. What's next? ?? Go to your health care provider once a year for an annual wellness visit. ?? Ask your health care provider how often you should have your eyes and teeth checked. ?? Stay up to date on all vaccines. This information is not intended to replace advice given to you by your health care provider. Make sure you discuss any questions you have with your health care provider. Document Revised: 02/06/2020 Document Reviewed: 02/01/2019 [employer] Patient Education ?? 2020 [employer] E CLEANER documented in this encounter Progress Notes * Estrella Swann RMA - 06/12/2021 11:15 AM CST Shalonda Constantino, 35 y.o., female is here for Hypertension (week ago ) Medication Refills: Patient reports/denies need for medication refills. Orders Pended: no Requested Prescriptions No prescriptions requested or ordered in this encounter Home Medications Medication Sig Start Date End Date Taking? Authorizing Provider Cholecalciferol (Vitamin D3) 2000 UNIT Capsule Take 1 Capsule by mouth daily. YOU MAY BUY THIS OVERTHE COUNTER WITHOUT PRESCRIPTION 11/06/20 Yes Carmen Brown MD There are no [...] Health Maintenance Due Topic Date Due ??? SARS-COV-2 Immunization (1) Never done ??? Pap Smear Never done ??? Influenza Immunization (1) 02/04/2021 Orders Pended: no The following BPA's have been addressed with the patient today: BMI, Flu, TDAP, Pneumonia and Depression E CLEANER * Gwen Calero PAC - 06/12/2021 11:15 AM CST Chief Complaint: Chief Complaint Patient presents with ??? Hypertension week ago Assessment/Plan: Diagnoses and all orders for this visit: Elevated blood pressure reading Well adult exam - CMP (COMPREHENSIVE METABOLIC PANEL); Future - LIPID PANEL; Future - HEMOGLOBIN A1C W/ ESTIMATED GLUCOSE; Future - COMPLETE BLOOD COUNT (CBC) WITH DIFF; Future - THYROID STIMULATING HORMONE (TSH); Future New patient Preventive care d/w pt No sig FH of any cancers Labs when fasting Acute visit today for concerns of BP elevation Not elevated today Pt to take log home and check at home BID Fu in 2-4 wks with log Address as needed BP med if elevated Subjective: Ms. Shalonda Constantino is a 35 y.o. female here today for above. New patient Acute concern- Elevated BP at her work No other medical concerns ROS: Review of Systems All other systems reviewed and are negative. VITAL SIGNS: BP Readings from Last 3 Encounters: 06/12/21 110/80 08/13/20 110/70 05/29/20 138/82 Wt Readings from Last 3 Encounters: 06/12/21 204 lb 4.8 oz (92.7 kg) 05/29/20 189 lb 6.4 oz (85.9 kg) 11/27/19 178 lb (80.7 kg) Vitals: 06/12/21 1125 BP: 110/80 BP Location: Right Arm BP Position: Sitting BP Cuff Size: Regular Pulse: 79 Resp: 12 Temp: 98 ??F (36.7 ??C) TempSrc: Temporal SpO2: 97% Weight: 204 lb 4.8 oz (92.7 kg) Height: 5' 3 (1.6 m) Body mass index is 36.19 kg/m??. PHYSICAL EXAM: Physical Exam Vitals reviewed. Constitutional: Appearance: Normal appearance. HENT: Head: Normocephalic and atraumatic. Right Ear: Tympanic membrane normal. Left Ear: Tympanic membrane normal. Nose: Nose normal. Mouth/Throat: Mouth: Mucous membranes are dry. Eyes: Extraocular Movements: Extraocular movements intact. Cardiovascular: Rate and Rhythm: Regular rhythm. Heart sounds: Normal heart sounds. Pulmonary: Effort: Pulmonary effort is normal. Breath sounds: Normal breath sounds. Abdominal: Palpations: Abdomen is soft. Musculoskeletal: General: Normal [...] No resulted procedures found. FOLLOWUP: Follow-up Information No follow-ups on file. LOS Today OFFICE/OP NEW LVL 3 LOW MDM/30-44 MIN Past medical, surgical, social and family history has been reviewed and updated as necessary. Medications and allergies has been reviewed and updated. I discussed all new medications and potential side effects or risks associated with them. Patient is to contact our office with any concerns. Patient instructions and educational materials were given to the patient. Patient (or patient authorization representative) demonstrates verbal understanding of instructions given. [...] our referral team or the referring physician. E CLEANER documented in this encounter Plan of Treatment Upcoming Encounters Date Type Department Care Team (Late st Contact Info) Description 06/19/2024 8:00 AM GRAVE CLEANER [facility]ment [facility] [address] [place] [address] Gwen Calero, PAC [address] [place] [address] Discharge Disposition: Discharged to home or Selfcare 06/19/2024 9:00 AM GRAVE CLEANER Appointment [facility] Ultrasound [address] [place] [address] Gwen Calero, PAC [address] [place] [address] Discharge Disposition: Discharged to home or Selfcare 08/13/2024 9:00 AM CDT Office Visit [facility] - Internal Medicine - [place] [address] [place] [address] Gwen Calero, PAC [address] [place] [address] Scheduled Orders Name Type Priority Associated Diagnoses Orde r Schedule CMP (COMPREHENSIVE METABOLIC PANEL) Lab Routine Well adult exam Expected: 06/15/2021 (Approximate), Expires: 07/12/2021 LIPID PANEL Lab Routine Well adult exam Expected: 06/15/2021 (Approximate), Expires: 07/12/2021 HEMOGLOBIN A1C W/ ESTIMATED GLUCOSE Lab Routine Well adult exam Expected: 06/15/2021 (Approximate), Expires: 07/12/2021 COMPLETE BLOOD COUNT (CBC) WITH DIFF Lab Routine Well adult exam Expected: 06/15/2021 (Approximate), Expires: 07/12/2021 THYROID STIMULATING HORMONE (TSH) Lab Routine Well adult exam Expected: 06/15/2021 (Approximate), Expires: 07/12/2021 documented as of this encounter Visit Diagnoses Diagnosis Elevated blood pressure reading- Primary Elevated blood pressure reading without diagnosis of hypertension Well adult exam Routine general medical examination at a health care facility documented in this encounter Additional Health Concerns Assessment Noted Time PHQ-9 Depression Total Score: 15 021 11:00 AM CDT documented as of this encounter Care Teams Cone Tender Relationship Specialty Start Date End Date Gwen Calero PAC [address] [place] [address] PCP - General Physician Donation Specialist 06/12/21 Adam Alejo DO Gastroenterology 01/07/16 Johnna Valente APRN, MANAGER KNOWLEDGE Nurse Practitioner Advanced Practice Nurse 01/07/16 Marisela Chaidez, MICHAEL, MANAGER KNOWLEDGE Nurse Practitioner Advanced Practice Nurse 01/07/16 Johnathan Pugh MD [address] [place] [address] Obstetrics & Gynecology 08/13/19 documented as of this encounter
--- OUTSIDE RECORDS SUMMARY | 2024-06-09 07:54 | XMS_ITS | Encounter Summary ---
Author Organization [facility] Address [address] [place] [address] Phone Care Team Providers Care Planogrammer Name Role Phone Carmen Brown MD Primary Care Provider [phone] Adam Alejo DO Unavailable [phone] Johnna Valente APRN, JERSEY KNITTER Unavailable [phone] Marisela Chaidez APRN, JERSEY KNITTER Unavailable Johnathan Pugh MD Unavailable [phone] Reason for Referral * Radiology Services (Routine) - Closed Specialty Diagnoses / Procedures Referred By Kavon lackey Referred To Contact Radiology Diagnoses Axillary mass, right Procedures US RIGHT EXTREMITY NON-VASC LTD US SOFT TISSUE UNLISTED PROCEDURE Charley Elizabeth APRN, [place] [address] [place] [address] Phone: tel: fax: Referral ID Status Reason Start Date Expiration Date Visits Re quested Visits Authorized [id number] Closed 05/05/2020 1 1 STER DRIVER Reason for Visit * Reason Comments Mass Encounter Details Date Type Department Care Team (Late st Contact Info) Description 05/05/2020 10:45 AM DUMPSTER DRIVER Telemedicine [facility] - Primary Care - [place] [address] [place] [address] Charley Elizabeth APRN, R[place] [address] [place] [address] Axillary mass, right (Primary Dx) Social History Tobacco Use Types Packs/Day Years [...] Coronavirus / COVID-19? Yes 05/26/2020 11:08 AM DUMPSTER DRIVER documented as of this encounter Patient Instructions * Patient Instructions* Charley Elizabeth APN, CNP - 05/05/2020 10:45 AM DUMPSTER DRIVER US will contact you to set up appt. STER DRIVER documented in this encounter Progress Notes * Charley Elizabeth APN, CNP - 05/05/2020 10:45 AM CST Patient was assessed via online video for a duration of 6 minutes. Patient verbally consented for this service to be performed and billed. HPI Patient is a 34 y.o. female who presents today for right axillary mass. Patient states approximately 2 months ago she noticed a mass to her right armpit. She states she kind of forgot about asmit was not bothering her. She states last week she noticed it again and it hasincreased in size. She states is now about the size of a ping-pong ball. She states it does not hurt unless it is manipulated. She states it is hard like a marble underneath the skin. Slightly mobile. Denies any erythema, drainage. Denies ever having this before. She does report she is currently breast-feeding and has been for about 3 years now. She denies any breast masses or other locations of skin masses. She states she has tried to massage stoma as it was engorged milk duct but she states it does not feel like an enogorged duct. She states it is very round. ROS Fourteen point review of systems negative except as documented in HPI. Physical Exam Unable to obtain Area of mass viewed via video visit. Appears to be subaxillary, anterior aspect, lateral to breast tissue but not in tail. There were no vitals filed for this visit. There is no height or weight on file to calculate BMI. Past, family, and social history reviewed and updated in the chart. Assessment/Plan: 1. Axillary mass, right Will start with ultrasound of soft tissue, if indicated will order breast ultrasound. - US SOFT TISSUE UNLISTED PROCEDURE; Future Patient Instructions US will contact you to set up appt. Patient verbalizes understanding and agrees with plan [...] the patient. Documentation for this visit on 05/05/20 was completed using a template. I have seen and examined the patient. Everything documented was personally performed at this visit with the necessary additions, deletions and changes made as appropriate. STER DRIVER documented in this encounter Miscellaneous Notes * Addendum Note - Charley Elizabeth APN, CNP - 05/05/2020 10:45 AM DUMPSTER DRIVER Addended by: CHARLEY ELIZABETH on: 05/28/2020 11:08 AM Modules accepted: Level of Service STER DRIVER documented in this encounter Plan of Treatment Upcoming Encounters Date Type Department Care Team (Late st Contact Info) Description 06/19/2024 8:00 AM DUMPSTER DRIVER [facility] 1 [place] [address] Gwen Calero, PAC [address] [place] [address] Discharge Disposition: Discharged to home or Selfcare 06/19/2024 9:00 AM DUMPSTER DRIVER [facility] 1 [facility] [place] [address] Gwen Calero, PAC [address] [place] [address] Discharge Disposition: Discharged to home or Selfcare 08/13/2024 9:00 AM CDT Office Visit [facility] - Internal Medicine - [place] [address] [place] [address] Gwen Calero, PAC [address] [place] [address] documented as of this encounter Results * US RIGHT EXTREMITY NON-VASC LTD (05/26/2020 12:00 PM DUMPSTER DRIVER) Anatomical Region Laterality Modality BODY Right Ultrasound 05/26/2020 4:41 PM DUMPSTER DRIVER Impressions 05/26/2020 4:44 PM DUMPSTER DRIVER IMPRESSION: ?? No soft tissue mass or fluid collection is identified sonographically. ??Further evaluation with CT could be considered if clinically warranted. Narrative 05/26/2020 4:44 PM DUMPSTER DRIVER EXAM DESCRIPTION: ?? US RIGHT EXTREMITY NON-VASC [...] PM - Electronically signed by Vernon Novak M.D. JR: D: ??05/26/2020 4:40 PM T: ??05/26/2020 4:41 PM Report ID: [id number] Reading Location: ??[id number] Procedure Note Vernon Novak MD - 05/26/2020 [...] PM - Electronically signed by Vernon Novak M.D. JR: Report ID: [id number] Reading Location: [id number] IMPRESSION: No soft tissue mass or fluid collection is identified sonographically. Further evaluation with CT could be considered if clinically warranted. us Charley Elizabeth APRN, CNP IMG US ORDERABL ES Final Result documented in this encounter Visit Diagnoses Diagnosis Axillary mass, right- Primary Axillary mass, right documented in this encounter Additional Health Concerns Infection Onset Date Last Indicated Resolved Time COVID - 19 04/25/2020 04/25/2020 05/15/2020 12:1 8 AM DUMPSTER DRIVER Assessment Noted Time PHQ-9 Depression Total Score: 0 06/29/19 1:22 PM DUMPSTER DRIVER documented as of this encounter Care Teams Planogrammer Relationship Specialty Start Date End Date Carmen Brown MD PCP - General Family Medicine 10/28/15 06/11/21 Adam Alejo DO Gastroenterology 01/07/16 Johnna Valente APRN, JERSEY KNITTER Nurse Practitioner Advanced Practice Nurse 01/07/16 Marisela Chaidez APRN, JERSEY KNITTER Nurse Practitioner Advanced Practice Nurse 01/07/16 Johnathan Pugh MD [address] [place] [address] Obstetrics & Gynecology 08/13/19 documented as of this encounter
--- OUTSIDE RECORDS SUMMARY | 2024-06-09 07:54 | XMS_ITS | Encounter Summary ---
Author Organization [facility] Care Team Providers Care Film Loader Name Role Phone Carmen Brown MD Primary Care Provider [phone] Adam Alejo DO Unavailable [phone] Johnna Valente EIGHT ARM OPERATOR, GARMENT TURNER Unavailable [phone] Marisela Chaidez EIGHT ARM OPERATOR, GARMENT TURNER Unavailable Johnathan Pugh MD Unavailable [phone] Encounter Details Date Type Department Care Team (Latest Contact Info) Description 05/26/2020 Travel Social History Tobacco Use Types Packs/Day [...] Coronavirus / COVID-19? Yes 05/26/2020 11:08 AM SEAFOOD TECHNOLOGY SPECIALIST documented as of this encounter Plan of Treatment Upcoming Encounters Date Type Department Care Team (Late st Contact Info) Description 06/19/2024 8:00 AM SEAFOOD TECHNOLOGY SPECIALIST Appointment [facility] Mammography 1 [place] [address] Gwen Calero, PAC [address] [place] [address] Discharge Disposition: Discharged to home or Selfcare 06/19/2024 9:00 AM SEAFOOD TECHNOLOGY SPECIALIST [facility] 1 [place] [address] Gwen Calero, PAC [address] [place] [address] Discharge Disposition: Discharged to home or Selfcare 08/13/2024 9:00 AM CDT Office Visit [facility] - Internal Medicine - [place] [address] [facility] [place] [address] Gwen Calero, PAC [address] [facility] [place] [address] documented as of this encounter Visit Diagnoses Not on filedocumented in this encounter Additional Health Concerns Assessment Noted Time PHQ-9 Depression Total Score: 0 06/29/19 20 1:22 PM SEAFOOD TECHNOLOGY SPECIALIST documented as of this encounter Care Teams Film Loader Relationship Specialty Start Date End Date Carmen Brown MD PCP - General Family Medicine 10/28/15 06/11/21 Adam Alejo DO Gastroenterology 01/07/16 Johnna Valente APRN, GARMENT TURNER Nurse Practitioner Advanced Practice Nurse 01/07/16 Marisela Chaidez APRN, GARMENT TURNER Nurse Practitioner Advanced Practice Nurse 01/07/16 Johnathan Pugh MD [address] [facility] [address] [place] [address] Obstetrics & Gynecology 08/13/19 documented as of this encounter
--- OUTSIDE RECORDS SUMMARY | 2024-06-09 07:54 | XMS_ITS | Encounter Summary ---
Author Organization [facility] Address [address] [place] [address] Phone Care Team Providers Care Crop Puller Name Role Phone Carmen Brown MD Primary Care Provider Adam Alejo DO Unavailable [phone] Johnna Valente PERCUSSION WELDING MACHINE OPERATOR, SENIOR MARKET RESEARCH ANALYST Unavailable Marisela Chaidez APRN, SENIOR MARKET RESEARCH ANALYST Unavailable Johnathan Pugh MD Unavailable [phone] Reason for Visit * Reason Onset Date Comments Appointment 11/06/2020 Encounter Details Date Type Department Care Team (Late st Contact Info) Description 11/06/2020 Telephone [facility] - Primary Care - [place] [address] [place] [address] Carmen Brown MD [address] [place] [address] Appointment Social History Tobacco Use [...] Telephone Encounter - Tran Gannon RN - 11/06/2020 9:36 AM CDT Called patient and left message to return call-would like to move patient from Viviane Dee to Dr. Carmen Brown. documented in this encounter Plan of Treatment Upcoming Encounters Date Type Department Care Team (Late st Contact Info) Description 06/19/2024 8:00 AM SLIVER HANDLER [facility] 1 [place] [address] Gwen Calero, PAC [address] [place] [address] Discharge Disposition: Discharged to home or Selfcare 06/19/2024 9:00 AM SLIVER HANDLER [facility] 1 [place] [address] Gwen Calero, PAC [address] [place] [address] Discharge Disposition: Discharged to home or Selfcare 08/13/2024 9:00 AM CDT [facility] - [facility] - [place] [address] [place] [address] Gwen Calero, PAC [address] [place] [address] documented as of this encounter Visit Diagnoses Not on filedocumented in this encounter Additional Health Concerns Assessment Noted Time PHQ-9 Depression Total Score: 15 021 11:00 AM CDT documented as of this encounter Care Teams Crop Puller Relationship Specialty Start Date End Date Carmen Brown MD PCP - General Family Medicine 10/28/15 06/11/21 Adam Alejo DO Gastroenterology 01/07/16 Johnna Valente APRN, SENIOR MARKET RESEARCH ANALYST Nurse Practitioner Advanced Practice Nurse 01/07/16 Marisela Chaidez APRN, SENIOR MARKET RESEARCH ANALYST Nurse Practitioner Advanced Practice Nurse 01/07/16 Johnathan Pugh MD [address] [place] [address] Obstetrics & Gynecology 08/13/19 documented as of this encounter
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
--- OUTSIDE RECORDS SUMMARY | 2024-06-09 07:54 | XMS_ITS | Encounter Summary ---
Author Organization [facility] Care Team Providers Care Dumbwaiter Operator Name Role Phone Adam Alejo DO Unavailable [phone] Johnna Valente DIESEL SERVICE APPRENTICE, NEWSPAPER STUFFER Unavailable [phone] Marisela Chaidez DIESEL SERVICE APPRENTICE, NEWSPAPER STUFFER Unavailable Johnathan Pugh MD Unavailable [phone] Gwen Calero PAC Primary Care Pro vider Encounter Details Date Type Department Care Team (Latest Contact Info) Description 01/27/2022 Travel Social History Tobacco Use Types Packs/Day [...] ( Contact Info) Description 06/19/2024 8:00 AM TOOL AND DIE TECHNICIAN [facility] 1 [place] [address] Gwen Calero, PAC [address] [place] [address] Discharge Disposition: Discharged to home or Selfcare 06/19/2024 9:00 AM TOOL AND DIE TECHNICIAN [facility] 1 [place] [address] Gwen Calero, PAC [address] [place] [address] Discharge Disposition: Discharged to home or Selfcare 08/13/2024 9:00 AM CDT Office Visit [facility] - Internal Medicine - [place] [address] [place] [address] Gwen Calero, PAC [address] [place] [address] documented as of this encounter Visit Diagnoses Not on filedocumented in this encounter Additional Health Concerns Assessment Noted Time PHQ-9 Depression Total Score: 12 01/27/2 022 1:00 PM CDT documented as of this encounter Care Teams Dumbwaiter Operator Relationship Specialty Start Date End Date Gwen Calero, PAC [address] [place] [address] PCP - General Physician Sporting Goods Sales Manager 06/12/21 Adam Alejo DO Gastroenterology 01/07/16 Johnna Valente, DIESEL SERVICE APPRENTICE, NEWSPAPER STUFFER Nurse Practitioner Advanced Practice Nurse 01/07/16 Marisela Chaidez, MICHAEL, NEWSPAPER STUFFER Nurse Practitioner Advanced Practice Nurse 01/07/16 Johnathan Pugh MD [address] [place] [address] Obstetrics & Gynecology 08/13/19 documented as of this encounter
--- OUTSIDE RECORDS SUMMARY | 2024-06-09 07:54 | XMS_ITS | Encounter Summary ---
Author Organization [facility] Address [address] [place] [address] Phone Care Team Providers Care Elevator Technician Name Role Phone Carmen Brown MD Primary Care Provider Adam Alejo DO Unavailable [phone] Johnna Valente SUPERVISOR MAILS, FLOW MATCH SOFA CUTTER Unavailable [phone] Mariesla Chaidez APRN, FLOW MATCH SOFA CUTTER Unavailable Johnathan Pugh MD Unavailable [phone] Encounter Details Date Type Department Care Team (Late st Contact Info) Description 05/27/2020 Telephone [facility] - Primary Care - [place] [address] [place] [address] Viviane De La Rosa SUPERVISOR MAILS, FLOW MATCH SOFA CUTTER [address] [place] [address] Social History Tobacco Use Types [...] Coronavirus / COVID-19? Yes 05/26/2020 11:08 AM FIELD SERVICE SPECIALIST documented as of this encounter Miscellaneous Notes * Telephone Encounter - Milla Gallagher RN - 05/27/2020 10:15 AM FIELD SERVICE SPECIALIST Left message for patient to call back and schedule appt with Viviane ROSA of Dr. Morales for swollen lymph node D SERVICE SPECIALIST documented in this encounter Plan of Treatment Upcoming Encounters Date Type Department Care Team (Late st Contact Info) Description 06/19/2024 8:00 AM FIELD SERVICE SPECIALIST [facility] 1 [place] [address] Gwen Calero, PAC [address] [place] [address] Discharge Disposition: Discharged to home or Selfcare 06/19/2024 9:00 AM FIELD SERVICE SPECIALIST [facility] 1 [place] [address] Gwen Calero, PAC [address] [place] [address] Discharge Disposition: Discharged to home or Selfcare 08/13/2024 9:00 AM CDT [facility] Internal Medicine - [place] [address] [place] [address] Gwen Calero, PAC [address] [place] [address] documented as of this encounter Visit Diagnoses Not on filedocumented in this encounter Additional Health Concerns Assessment Noted Time PHQ-9 Depression Total Score: 0 06/29/19 20 1:22 PM FIELD SERVICE SPECIALIST documented as of this encounter Care Teams Elevator Technician Relationship Specialty Start Date End Date Carmen Brown MD PCP - General Family Medicine 10/28/15 06/11/21 Adam Alejo DO Gastroenterology 01/07/16 Johnna Valente SUPERVISOR MAILS, FLOW MATCH SOFA CUTTER Nurse Practitioner Advanced Practice Nurse 01/07/16 Marisela Chaidez APRN, FLOW MATCH SOFA CUTTER Nurse Practitioner Advanced Practice Nurse 01/07/16 Johnathan Pugh MD [address] [place] [address] Obstetrics & Gynecology 08/13/19 documented as of this encounter
--- OUTSIDE RECORDS SUMMARY | 2024-06-09 07:54 | XMS_ITS | Encounter Summary ---
Author Organization [facility] Address [address] [place] [address] Phone Care Team Providers Care Preschool Education Director Name Role Phone Carmen Brown MD Primary Care Provider [phone] Adam Alejo DO Unavailable [phone] Johnna Valente OVERHEAD CRANE OPERATOR, BRIM STRETCHER Unavailable Marisela Chaidez APRN, BRIM STRETCHER Unavailable Johnathan Pugh MD Unavailable [phone] Encounter Details Date Type Department Care Team (Late st Contact Info) Description 05/27/2020 Telephone [facility] - Primary Care - [address] [place] [address] Viviane De La Rosa OVERHEAD CRANE OPERATOR, BRIM STRETCHER [address] [place] [address] Social History Tobacco Use Types [...] Coronavirus / COVID-19? Yes 05/26/2020 11:08 AM CRIMINAL INVESTIGATOR documented as of this encounter Miscellaneous Notes * Telephone Encounter - Tran Gannon RN - 05/27/2020 10:28 AM CRIMINAL INVESTIGATOR Attempted to call patient to schedule OV, no answer at this time. Left message to call back. INAL INVESTIGATOR * Telephone Encounter - Viviane De La Rosa APN, CNP - 05/27/2020 10:11 AM CST Can she come into the office for an evaluation with me or her pcp? INAL INVESTIGATOR * Telephone Encounter - Milla Gallagher RN - 05/27/2020 9:47 AM CRIMINAL INVESTIGATOR Informed pt of ultrasound results, lymph node being appearing benign. Pt states area has gotten bigger and more painful. Will let Viviane know. INAL INVESTIGATOR * Telephone Encounter - Milla Gallagher RN - 05/27/2020 9:45 AM CRIMINAL INVESTIGATOR ----- Message from Viviane De La Rosa APN, CNP sent at 05/27/2020 8:36 AM CRIMINAL INVESTIGATOR ----- A benign appearing axillary lymph node noted. How are her symptoms INAL INVESTIGATOR documented in this encounter Plan of Treatment Upcoming Encounters Date Type Department Care Team (Late st Contact Info) Description 06/19/2024 8:00 AM CRIMINAL INVESTIGATOR [facility] 1 [place] [address] Gwen Calero, PAC [address] [place] [address] Discharge Disposition: Discharged to home or Selfcare 06/19/2024 9:00 AM CRIMINAL INVESTIGATOR Appointment [facility] Ultrasound 1 [facility] [place] [address] Gwen Calero, PAC [address] [place] [address] Discharge Disposition: Discharged to home or Selfcare 08/13/2024 9:00 AM CDT [facility] - [place] [address] [place] [address] Gwen Calero, PAC [address] [place] [address] documented as of this encounter Visit Diagnoses Not on filedocumented in this encounter Additional Health Concerns Assessment Noted Time PHQ-9 Depression Total Score: 0 06/29/19 20 1:22 PM CRIMINAL INVESTIGATOR documented as of this encounter Care Teams Preschool Education Director Relationship Specialty Start Date End Date Carmen Brown MD PCP - General Family Medicine 10/28/15 06/11/21 Adam Alejo DO Gastroenterology 01/07/16 Johnna Valente APRN, BRIM STRETCHER Nurse Practitioner Advanced Practice Nurse 01/07/16 Marisela Chaidez APRN, BRIM STRETCHER Nurse Practitioner Advanced Practice Nurse 01/07/16 Johnathan Pugh MD [address] [facility] [address] [place] [id number] Obstetrics & Gynecology 08/13/19 documented as of this encounter
--- OUTSIDE RECORDS SUMMARY | 2024-06-09 07:55 | XMS_ITS | Encounter Summary ---
Author Organization [facility] Address [address] [place] [address] Phone Care Team Providers Care Solution Make Up Operator Name Role Phone Carmen Brown MD Primary Care Provider Adam Alejo DO Unavailable [phone] Johnna Valente BEAMER HAND, SENIOR SYSTEMS ANALYST Unavailable [phone] Marisela Chaidez APRN, SENIOR SYSTEMS ANALYST Unavailable Johnathan Pugh MD Unavailable [phone] Reason for Visit * Reason Onset Date Comments Medication Management 09/12/2019 Encounter Details Date Type Department Care Team (Late st Contact Info) Description 09/12/2019 Telephone [facility] [place] [facility] [address] [place] [address] Carmen Brown MD [address] [place] [address] Medication Management Social History Tobacco Use Types [...] have Coronavirus / COVID-19? No / Unsure 08/31/2019 12:30 PM CDT documented as of this encounter Miscellaneous Notes * Telephone Encounter - Chasidy Uribe RN - 09/13/2019 9:07 AM CDT Patient is aware and verbalizes understanding. * Telephone Encounter - Tran Gannon RN - 09/13/2019 9:02 AM CDT Attempted to call patient,no answer at this time. Left message to call back. * Telephone Encounter - Carmen Brown MD - 09/13/2019 8:30 AM CDT Increased amitriptyline to 50 mg q.h.s.. Ordered. * Telephone Encounter - Oly Jiménez CMA - 09/12/2019 9:44 AM CDT Shalonda is asking if you can increase her dose of amitriptyline. States it was helping with the nervepain in her foot but the pain is back. documented in this encounter Plan of Treatment Upcoming Encounters Date Type Department Care Team (Late st Contact Info) Description 06/19/2024 8:[address] LIGHT REPAIRER HELPER [facility] 1 [place] [address] Gwen Calero, PAC [address] [place] [address] Discharge Disposition: Discharged to home or Selfcare 06/19/2024 9:[address] LIGHT REPAIRER HELPER Appointment [facility] Ul[facility]ound 1 [facility] [place] [address] Gwen Calero, PAC [address] [place] [address] Discharge Disposition: Discharged to home or Selfcare 08/13/2024 9:00 AM CDT [facility] - [place] [address] [facility] [place] [address] Gwen Calero, PAC [address] [place] [address] documented as of this encounter Visit Diagnoses Not on filedocumented in this encounter Additional Health Concerns Assessment Noted Time PHQ-9 Depression Total Score: 0 06/29/19 20 1:[address] LIGHT REPAIRER HELPER documented as of this encounter Care Teams Solution Make Up Operator Relationship Specialty Start Date End Date Carmen Brown MD PCP - General Family Medicine 10/28/15 06/11/21 Adam Alejo DO Gastroenterology 01/07/16 Johnna Valente APRN, SENIOR SYSTEMS ANALYST Nurse Practitioner Advanced Practice Nurse 01/07/16 Marisela Chaidez APRN, SENIOR SYSTEMS ANALYST Nurse Practitioner Advanced Practice Nurse 01/07/16 Johnathan Pugh MD [address] [place], [place] [id number] Obstetrics & Gynecology 08/13/19 documented as of this encounter
--- OUTSIDE RECORDS SUMMARY | 2024-06-09 07:55 | XMS_ITS | Encounter Summary ---
Author Organization [facility] Care Team Providers Care Enterprise Systems Administrator Name Role Phone Carmen Brown MD Primary Care Provider [phone] Adam Alejo DO Unavailable [phone] Johnna Valente SIDE SPLITTER, ROTOR PILOT Unavailable [phone] Marisela Chaidez SIDE SPLITTER, ROTOR PILOT Unavailable Johnathan Pugh MD Unavailable [phone] Encounter Details Date Type Department Care Team (Latest Contact Info) Description 04/24/2020 Travel Social History Tobacco Use Types Packs/Day [...] Coronavirus / COVID-19? Yes 04/24/2020 3:19 PM PHYSICAL PLANT EMPLOYEE documented as of this encounter Plan of Treatment Upcoming Encounters Date Type Department Care Team ( Contact Info) Description 06/19/2024 8:00 AM PHYSICAL PLANT EMPLOYEE [facility] 1 [place] [address] Gwen Calero, PAC [address] [place] [address] Discharge Disposition: Discharged to home or Selfcare 06/19/2024 9:00 AM PHYSICAL PLANT EMPLOYEE Appointment [facility] Ultrasound 1 [place] [address] Gwen Calero, PAC [address] [place] [address] Discharge Disposition: Discharged to home or Selfcare 08/13/2024 9:00 AM CDT [facility] - [place] [address] [place] [address] Gwen Calero, PAC [address] [place] [address] documented as of this encounter Visit Diagnoses Not on filedocumented in this encounter Additional Health Concerns Assessment Noted Time PHQ-9 Depression Total Score: 0 06/29/19 20 1:22 PM PHYSICAL PLANT EMPLOYEE documented as of this encounter Care Teams Enterprise Systems Administrator Relationship Specialty Start Date End Date Carmen Brown MD PCP - General Family Medicine 10/28/15 06/11/21 Adam Alejo DO Gastroenterology 01/07/16 Johnna Valente, SIDE SPLITTER, ROTOR PILOT Nurse Practitioner Advanced Practice Nurse 01/07/16 Marisela Chaidez, MICHAEL, ROTOR PILOT Nurse Practitioner Advanced Practice Nurse 01/07/16 Johnathan Pugh MD [address] [place] [address] Obstetrics & Gynecology 08/13/19 documented as of this encounter
--- OUTSIDE RECORDS SUMMARY | 2024-06-09 07:55 | XMS_ITS | Encounter Summary ---
Author Organization [facility] Address [address] [place] [address] Phone Care Team Providers Care Sausage Grinder Name Role Phone Carmen Brown MD Primary Care Provider Adam Alejo DO Unavailable [phone] Johnna Valente BATT MACHINE OPERATOR, INSTRUCTIONAL SPECIALIST Unavailable Marisela Chaidez APRN, INSTRUCTIONAL SPECIALIST Unavailable Johnathan Pugh MD Unavailable [phone] Encounter Details Date Type Department Care Team (Late st Contact Info) Description 08/15/2019 Telephone [facility] - [facility] [address] [place] [address] Carmen Brown MD [address] [place] [address] Social History Tobacco Use Types [...] as of this encounter Miscellaneous Notes * Addendum Note - Mark Anthony Wilson - 11/14/2019 7:56 AM CDTAddended by: MARK ANTHONY WILSON on: 11/14/2019 07:56 AM Modules accepted: Orders * Telephone Encounter - Tran Gannon RN - 08/15/2019 2:30 PM CDT Received fax from [employer] for order and insurance precert for MRI lumbar spine and right foot. documented in this encounter Plan of Treatment Upcoming Encounters Date Type Department Care Team (Late st Contact Info) Description 06/19/2024 8:00 AM LIGHTING ENGINEER [facility] 1 [place] [address] Gwen Calero, PAC [address] [place] [address] Discharge Disposition: Discharged to home or Selfcare 06/19/2024 9:00 AM LIGHTING ENGINEER [facility]ment [facility] 1 [facility] [place] [address] Gwen Calero, PAC [address] [place] [address] Discharge Disposition: Discharged to home or Selfcare 08/13/2024 9:00 AM CDT [facility] - [place] [address] [place] [address] Gwen Calero, PAC [address] [place] [address] documented as of this encounter Visit Diagnoses Diagnosis 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 Right foot pain Pain in limb documented in this encounter Additional Health Concerns Assessment Noted Time PHQ-9 Depression Total Score: 0 06/29/19 20 1:22 PM LIGHTING ENGINEER documented as of this encounter Care Teams Sausage Grinder Relationship Specialty Start Date End Date Carmen Brown MD PCP - General Family Medicine 10/28/15 06/11/21 Adam Alejo DO Gastroenterology 01/07/16 Johnna Valente APRN, INSTRUCTIONAL SPECIALIST Nurse Practitioner Advanced Practice Nurse 01/07/16 Marisela Chaidez, MICHAEL, INSTRUCTIONAL SPECIALIST Nurse Practitioner Advanced Practice Nurse 01/07/16 Johnathan Pugh MD [address] [place] [address] Obstetrics & Gynecology 08/13/19 documented as of this encounter
--- OUTSIDE RECORDS SUMMARY | 2024-06-09 07:55 | XMS_ITS | Encounter Summary ---
Author Organization [facility] Care Team Providers Care Family Mediator Name Role Phone Carmen Brown MD Primary Care Provider Adam Alejo DO Unavailable [phone] Johnna Valente RETORT LOADER, RETENTION SPECIALIST Unavailable [phone] Marisela Chaidez RETORT LOADER, RETENTION SPECIALIST Unavailable Johnathan Pugh MD Unavailable [phone] Encounter Details Date Type Department Care Team (Latest Contact Info) Description 11/27/2019 Travel Social History Tobacco Use Types Packs/Day [...] have Coronavirus / COVID-19? No / Unsure 11/27/2019 11:12 AM CDT documented as of this encounter Plan of Treatment Upcoming Encounters Date Type Department Care Team ( st Contact Info) Description 06/19/2024 8:00 AM TAX DIRECTOR Appointment [facility] Mammography 1 [place] [address] Gwen Calero, PAC [address] [place] [address] Discharge Disposition: Discharged to home or Selfcare 06/19/2024 9:00 AM TAX DIRECTOR Appointment [facility] Ultrasound 1 [place] [address] Gwen Calero, PAC [address] [place] [address] Discharge Disposition: Discharged to home or Selfcare 08/13/2024 9:00 AM CDT [facility] - [place] [address] [place] [address] Gwen Calero, PAC [address] [facility] [address] documented as of this encounter Visit Diagnoses Not on filedocumented in this encounter Additional Health Concerns Assessment Noted Time PHQ-9 Depression Total Score: 0 06/29/19 20 1:22 PM TAX DIRECTOR documented as of this encounter Care Teams Family Mediator Relationship Specialty Start Date End Date Carmen Brown MD PCP - General Family Medicine 10/28/15 06/11/21 Adam Alejo DO Gastroenterology 01/07/16 Johnna Valente APRN, RETENTION SPECIALIST Nurse Practitioner Advanced Practice Nurse 01/07/16 Marisela Chaidez APRN, RETENTION SPECIALIST Nurse Practitioner Advanced Practice Nurse 01/07/16 Johnathan Pugh MD [address] [place] [address] Obstetrics & Gynecology 08/13/19 documented as of this encounter
--- OUTSIDE RECORDS SUMMARY | 2024-06-09 07:55 | XMS_ITS | Encounter Summary ---
Author Organization [facility] Address [address] [facility] [place] [address] Phone Care Team Providers Care Sheet Metal Duct Installer Apprentice Name Role Phone Carmen Brown MD Primary Care Provider Adam Alejo DO Unavailable [phone] Johnna Valente WOOD SASH AND FRAME CARPENTER, DENTAL TECHNICIAN METAL Unavailable [phone] Marisela Chaidez APRN, DENTAL TECHNICIAN METAL Unavailable Johnathan Pugh MD Unavailable [phone] Reason for Visit * Reason Onset Date Comments Referral 08/27/2019 FYI MRI Denial Encounter Details Date Type Department Care Team (Late st Contact Info) Description 08/27/2019 [facility]phone [facility] [address] [place] [address] Carmen Brown MD [address] [place] [address] Referral (FYI MRI Denial) Social History Tobacco Use Types Packs/Day Years [...] have Coronavirus / COVID-19? No / Unsure 08/22/2019 4:29 PM CDT documented as of this encounter Miscellaneous Notes * Telephone Encounter - Tran Gannon RN - 08/27/2019 1:27 PM CDT Call to patient to inform. Patient states physical therapy in the past has caused pain, but she will try again for 6 weeks, then would like to get MRI done. * Telephone Encounter - Carmen Brown MD - 08/27/2019 11:41 AM CDT Please inform patient the message below. Referral to physical therapy has already been placed. * Telephone Encounter - Naz Quezada - 08/27/2019 10:32 AM CDT On 08/20/19, Carmen Brown placed an order for patient to have MRI RT Foot For DX: foot pain. We attempted to get authorization as is required by patient's health plan. Authorization was denied. The reason given by the clinical reviewer was as follows: Patient has not had six weeks of physical therapy for her right foot [facility] is no longer offering a peer to peer however they will explain further if provider would like to call opt 2 Case # [id number] Please let us know if you will be conducting this review. Please contact patient with further information and instructions. Thanks, [facility] Referral Services [address] [place] [address] Ph. or documented in this encounter Plan of Treatment Upcoming Encounters Date Type Department Care Team (Late st Contact Info) Description 06/19/2024 8:00 AM INSURANCE BILLER [facility] 1 [place] [address] Gwen Calero, PAC [address] [place] [address] Discharge Disposition: Discharged to home or Selfcare 06/19/2024 9:00 AM INSURANCE BILLER [facility] 1 [place] [address] Gwen Calero, PAC [address] [place] [address] Discharge Disposition: Discharged to home or Selfcare 08/13/2024 9:00 AM CDT [facility] - [place] [address] [place] [address] Gwen Calero, PAC [address] [place] [address] documented as of this encounter Visit Diagnoses Not on filedocumented in this encounter Additional Health Concerns Assessment Noted Time PHQ-9 Depression Total Score: 0 06/29/19 20 1:22 PM INSURANCE BILLER documented as of this encounter Care Teams Sheet Metal Duct Installer Apprentice Relationship Specialty Start Date End Date Carmen Brown MD PCP - General Family Medicine 10/28/15 06/11/21 Adam Alejo DO Gastroenterology 01/07/16 Johnna Valente, WOOD SASH AND FRAME CARPENTER, DENTAL TECHNICIAN METAL Nurse Practitioner Advanced Practice Nurse 01/07/16 Marisela Chaidez, WOOD SASH AND FRAME CARPENTER, DENTAL TECHNICIAN METAL Nurse Practitioner Advanced Practice Nurse 01/07/16 Johnathan Pugh MD [address] [place] [address] Obstetrics & Gynecology 08/13/19 documented as of this encounter
--- OUTSIDE RECORDS SUMMARY | 2024-06-09 07:55 | XMS_ITS | Encounter Summary ---
Author Organization [facility] Address [address] [place] [address] Phone Care Team Providers Care Flight Physician Name Role Phone Carmen Brown MD Primary Care Provider Adam Alejo DO Unavailable [phone] Johnna Valente COUNSELOR SUPERVISOR, BANK BOSS Unavailable Marisela Chaidez COUNSELOR SUPERVISOR, BANK BOSS Unavailable Johnathan Pugh MD Unavailable [phone] Reason for Visit * Reason Comments Medication Refill Encounter Details Date Type Department Care Team (Late st Contact Info) Description [facility]/02/2019 [facility] [address] [place] [address] Carmen Brown MD [address] [place] [address] Medication Refill Social History Tobacco Use Types [...] Miscellaneous Notes * Telephone Encounter - Katie Mcfarland RN - 10/03/2019 8:08 AM CDT Requested Prescriptions Pending Prescriptions Disp Refills amitriptyline (ELAVIL) 25 MG Tablet [Pharmacy Med Name: AMITRIPTYLINE HCL 25 MG TAB] 90 Tab 3 Sig: TAKE 1 TABLET BY MOUTH EVERY EVENING Not Delegated - Psychiatry: Antidepressants - Heterocyclics (TCAs) Failed - 10/03/2019 8:08 AM Failed - Last BP in normal range BP Readings from Last 1 Encounters: 08/14/19 (!) 164/96 Failed - This refill cannot be delegated Passed - Valid encounter within last 12 months Past Office Visits Recent Outpatient Visits 1 month ago Chronic midline low back pain with right-sided sciatica [facility] - Carmen Wasserman MD 3 months ago Chronic bilateral low back pain with bilateral sciatica [facility] - Katie Currie, MAINTENANCE PARTS TECHNICIAN, BANK BOSS 3 years ago Diarrhea, unspecified type [facility] Carmen Brown MD Upcoming Appointments Powered by [employer] - 10/03/2019 8:08 AM The requested medication is not on the active medication list. documented in this encounter Plan of Treatment Upcoming Encounters Date Type Department Care Team (Late st Contact Info) Description 06/19/2024 8:00 AM CUFF KNITTER [facility] 1 [place] [address] Gwen Calero, PAC [address] [place] [address] Discharge Disposition: Discharged to home or Selfcare 06/19/2024 9:00 AM CUFF KNITTER [facility] 1 [place] [address] Gwen Calero, PAC [address] [place] [address] Discharge Disposition: Discharged to home or Selfcare 08/13/2024 9:00 AM CDT [facility] - [place] [address] [place] [address] Gwen Calero, PAC [address] [place] [address] documented as of this encounter Visit Diagnoses Not on filedocumented in this encounter Additional Health Concerns Assessment Noted Time PHQ-9 Depression Total Score: 0 06/29/19 20 1:22 PM CUFF KNITTER documented as of this encounter Care Teams Flight Physician Relationship Specialty Start Date End Date Carmen Brown MD PCP - General Family Medicine 10/28/15 06/11/21 Adam Alejo DO Gastroenterology 01/07/16 Johnna Valente APRN, BANK BOSS Nurse Practitioner Advanced Practice Nurse 01/07/16 Marisela Chaidez, MICHAEL, BANK BOSS Nurse Practitioner Advanced Practice Nurse 01/07/16 Johnathan Pugh MD [address] [place] [address] Obstetrics & Gynecology 08/13/19 documented as of this encounter
--- OUTSIDE RECORDS SUMMARY | 2024-06-09 07:55 | XMS_ITS | Encounter Summary ---
Author Organization [facility] Address [address] [place] [address] Phone Care Team Providers Care Group Rooms Coordinator Name Role Phone Carmen rBown MD Primary Care Provider [phone] Adam Alejo DO Unavailable [phone] Johnna Valente FILM CREW MEMBER, ACLS NURSE Unavailable Marisela Chaidez APRN, ACLS NURSE Unavailable Johnathan Pugh MD Unavailable [phone] Reason for Visit * Reason Comments Medication Refill Encounter Details Date Type Department Care Team (Late st Contact Info) Description 09/05/2019 Refill [facility] [address] [place] [address] Carmen Brown MD [address] [place] [address] Medication Refill Social History Tobacco [...] encounter Miscellaneous Notes * Telephone Encounter - Ivana Tai RN - 09/05/2019 7:26 AM CDT Requested Prescriptions Pending Prescriptions Disp Refills ibuprofen (MOTRIN) 800 MG Tablet [Pharmacy Med Name: IBUPROFEN 800 MG TABLET] 90 Tab 0 Sig: Take 1 Tab by mouth every 8 hours as needed for Mild or more severe pain. There is no refill protocol information for this order documented in this encounter Plan of Treatment Upcoming Encounters Date Type Department Care Team (Late st Contact Info) Description 06/19/2024 8:00 AM AIR SUPPORT CONTROL OFFICER [facility]ment [facility] M[facility] 1 [place] [address] Gwen Calero, PAC [address] [place] [address] Discharge Disposition: Discharged to home or Selfcare 06/19/2024 9:00 AM AIR SUPPORT CONTROL OFFICER [facility]ointment [facility] Ultrasound 1 [place] [address] Gwen Calero, PAC [address] [place] [address] Discharge Disposition: Discharged to home or Selfcare 08/13/2024 9:00 AM CDT [facility] - [place] [address] [place] [id number] Gwen Calero, PAC [address] [place] [address] documented as of this encounter Visit Diagnoses Diagnosis Right foot pain Pain in limb documented in this encounter Additional Health Concerns Assessment Noted Time PHQ-9 Depression Total Score: 0 06/29/19 20 1:22 PM AIR SUPPORT CONTROL OFFICER documented as of this encounter Care Teams Group Rooms Coordinator Relationship Specialty Start Date End Date Carmen Brown MD PCP - General Family Medicine 10/28/15 06/11/21 Adam Alejo DO Gastroenterology 01/07/16 Johnna Valente APRN, ACLS NURSE Nurse Practitioner Advanced Practice Nurse 01/07/16 Marisela Chaidez APRN, ACLS NURSE Nurse Practitioner Advanced Practice Nurse 01/07/16 Johnathan Pugh MD [address] [place] [address] Obstetrics & Gynecology 08/13/19 documented as of this encounter
--- OUTSIDE RECORDS SUMMARY | 2024-06-09 07:55 | XMS_ITS | Encounter Summary ---
Author Organization [facility] Address [address] [place] [place] [address] Phone Care Team Providers Care Grade Recorder Name Role Phone Carmen Brown MD Primary Care Provider Adam Alejo DO Unavailable [phone] Johnna Valente CUSTOM PROTECTION OFFICER, PICKLING GRADER Unavailable Marisela Chaidez CUSTOM PROTECTION OFFICER, PICKLING GRADER Unavailable Johnathan Pugh MD Unavailable [phone] Reason for Visit * Reason Onset Date Comments COVID-19 04/24/2020 Encounter Details Date Type Department Care Team (Late st Contact Info) Description 04/24/2020 Nurse Triage [facility] [address] [place] [address] Carmen Brown MD [address] [place] [address] COVID-19 Social History Tobacco Use Types Packs/Day Years [...] Coronavirus / COVID-19? Yes 04/24/2020 3:19 PM RECEIVER BULK SYSTEM documented as of this encounter Miscellaneous Notes * Telephone Encounter - Tran Gannon RN - 04/25/2020 12:22 PM RECEIVER BULK SYSTEM Patient notified per Oly Jiménez to schedule rapid Covid test for 04/26/20 at patient request. IVER BULK SYSTEM * Telephone Encounter - Carmen Brown MD - 04/25/2020 12:11 PM RECEIVER BULK SYSTEM Okay to get an drive-through COVID testing. Rapid COVID test ordered. IVER BULK SYSTEM * Telephone Encounter - Aliyah Vásquez RN - 04/25/2020 11:39 AM CST Patient is calling to see if triage below can be addressed. Patient would like to be tested for COVID at the [facility] today? Please advise IVER BULK SYSTEM * Telephone Encounter - Randa Hurd RN - 04/24/2020 3:16 PM RECEIVER BULK SYSTEM Images from the original note were not included. SITUATION: Nausea and dry heaving, sore throat BACKGROUND: Exposed to COVID this week by child that has been at her house all week. Symptoms started this morning. ASSESSMENT: Symptom Description / Location: States that she woke up this morning really nauseous and was havingdry heaves. States now her throat is hurting, no chest pain, no difficulty breathing, has had headaches with an occasional dry cough. Pain (0-10): 2/10 Temp: States she has felt warm off and on but has not way to check temp Treatment / Response: Ibuprofen LMP / / : Patient's last menstrual period was 01/15/2018 (approximate). RECOMMENDATION: See care advice and disposition for Guideline First positive answer recorded, all responses to prior questions were negative. If symptoms increase, change or if new symptoms develop, call your HCP or call back. Recommendations were based on caller information and is not a diagnosis. Verified and reviewed all triage information with caller. Reason for Disposition ??? [1] Symptoms of COVID-19 (e.g., cough, fever, SOB, or others) AND [2] within 14 days of EXPOSURE (close contact) with diagnosed or suspected COVID-19 patient ??? [1] COVID-19 infection suspected by caller or triager AND [2] mild symptoms (cough, fever, or others) AND [3] no complications or SOB Protocols used: CORONAVIRUS (COVID-19) [id number], CORONAVIRUS (COVID-19) DIAGNOSED OR [id number] Patient is asking if she can have a COVID test ordered based off of her symptoms. Routing to provider as FYI Travel Screening Question Response In the last month, have you been in contact with someone who was confirmed or suspected to have Coronavirus / COVID-19? Yes Have you had a COVID-19 viral test in the last 14 days? No Do you have any of the following new or worsening symptoms? Muscle pain;Severe headache;Cough;Sore throat;Abdominal pain;Vomiting;Fatigue Have you traveled internationally in the last month? No Travel History Travel since 03/24/20 No documented travel since 03/24/20 COVID-19 Testing Priority for Shalonda Constantino: 3 RANDA, NORIS IVER BULK SYSTEM documented in this encounter Plan of Treatment Upcoming Encounters Date Type Department Care Team (Late st Contact Info) Description 06/19/2024 8:00 AM RECEIVER BULK SYSTEM Appointment [facility] Mammography 1 [facility] [place] [address] Gwen Calero, PAC [address] [place] [address] Discharge Disposition: Discharged to home or Selfcare 06/19/2024 9:00 AM RECEIVER BULK SYSTEM Appointment [facility] Ultrasound 1 [place] [address] Gewn Calero, PAC [address] [place] [id number] Discharge Disposition: Discharged to home or Selfcare 08/13/2024 9:00 AM CDT [facility] [place] [address] [place] [address] Gwen Calero, PAC [address] [facility] [place] [address] Scheduled Orders Name Type Priority Associated Diagnoses Orde r Schedule POCT SARS ANTIGEN ASHLEY Point of Care Testing (manual) Routine Sore throat Expected: 04/25/2020, Expires: 07/26/2020 documented as of this encounter Visit Diagnoses Diagnosis Sore throat- Primary Acute pharyngitis documented in this encounter Additional Health Concerns Infection Onset Date Last Indicated Resolved Time COVID - 19 04/25/2020 04/25/2020 05/15/2020 12:1 8 AM RECEIVER BULK SYSTEM Assessment Noted Time PHQ-9 Depression Total Score: 0 06/29/19 20 1:22 PM RECEIVER BULK SYSTEM documented as of this encounter Care Teams Grade Recorder Relationship Specialty Start Date End Date Carmen Brown MD PCP - General Family Medicine 10/28/15 06/11/21 Adam Alejo DO Gastroenterology 01/07/16 Johnna Valente, CUSTOM PROTECTION OFFICER, PICKLING GRADER Nurse Practitioner Advanced Practice Nurse 01/07/16 Marisela Chaidez, MICHAEL, PICKLING GRADER Nurse Practitioner Advanced Practice Nurse 01/07/16 Johnathan Pugh MD [address] [place] [address] Obstetrics & Gynecology 08/13/19 documented as of this encounter
--- OUTSIDE RECORDS SUMMARY | 2024-06-09 07:55 | XMS_ITS | Encounter Summary ---
Author Organization [facility] Address [address] [place] [address] Phone Care Team Providers Care Director Of Rehabilitation Name Role Phone Carmen Brown MD Primary Care Provider [phone] Adam Alejo DO Unavailable [phone] Johnna Valente MAINTAINER CENTRAL OFFICE, RETAIL LOAN ORIGINATOR Unavailable [phone] Marisela Chaidez APRN, RETAIL LOAN ORIGINATOR Unavailable Johnathan Pugh MD Unavailable [phone] Encounter Details Date Type Department Care Team (Late st Contact Info) Description 04/25/2020 3:55 PM FORESTER AIDE Lab [facility] [place] [address] [place] [id number] Testing, [facility] Nurse [place] Sore throat Discharge Disposition: Discharged to home or Selfcare [...] Coronavirus / COVID-19? Yes 04/24/2020 3:19 PM FORESTER AIDE documented as of this encounter Progress Notes * Ricarda Santiago, RN - 04/25/2020 3:55 PM CST Patient presents to prompt care in personal car for drive up deep nasal COVID 19 swab. Bi-lateral nares swabbed with no difficulty and patient tolerated well. Written instruction given on care at home, and home isolation. Specimen tested at [facility] for rapid covid test. STER AIDE documented in this encounter Plan of Treatment Upcoming Encounters Date Type Department Care Team (Late st Contact Info) Description 06/19/2024 8:00 AM FORESTER AIDE [facility] [address] [place] [address] Gwen Calero, PAC [address] [place] [address] Discharge Disposition: Discharged to home or Selfcare 06/19/2024 9:00 AM FORESTER AIDE [facility] Ul[facility] [address] [place] [address] Gwen Calero, PAC [address] [place] [address] Discharge Disposition: Discharged to home or Selfcare 08/13/2024 9:00 AM CDT [facility] [place] [address] [place] [address] Gwen Calero, PAC [address] [place] [address] documented as of this encounter Visit Diagnoses Diagnosis Sore throat Acute pharyngitis documented in this encounter Additional Health Concerns Infection Onset Date Last Indicated Resolved Time COVID - 19 04/25/2020 04/25/2020 05/15/2020 12:1 8 AM FORESTER AIDE Assessment Noted Time PHQ-9 Depression Total Score: 0 06/29/19 20 1:22 PM FORESTER AIDE documented as of this encounter Care Teams Director Of Rehabilitation Relationship Specialty Start Date End Date Carmen Brown MD PCP - General Family Medicine 10/28/15 06/11/21 Adam Alejo DO Gastroenterology 01/07/16 Johnna Valente, MAINTAINER CENTRAL OFFICE, RETAIL LOAN ORIGINATOR Nurse Practitioner Advanced Practice Nurse 01/07/16 Marisela Chaidez, MICHAEL, RETAIL LOAN ORIGINATOR Nurse Practitioner Advanced Practice Nurse 01/07/16 Johnathan Pugh MD [address] [place] [address] Obstetrics & Gynecology 08/13/19 documented as of this encounter
--- OUTSIDE RECORDS SUMMARY | 2024-06-09 07:55 | XMS_ITS | Encounter Summary ---
Author Organization [facility] Care Team Providers Care Channel Supervisor Name Role Phone Carmen Brown MD Primary Care Provider [phone] Adam Alejo DO Unavailable [phone] Johnna Valente TRANSFER AGENT, INSPECTOR PROCESS Unavailable [phone] Marisela Chaidez TRANSFER AGENT, INSPECTOR PROCESS Unavailable Johnathan Pugh MD Unavailable [phone] Encounter Details Date Type Department Care Team (Latest Contact Info) Description 08/31/2019 Travel Social History Tobacco Use Types Packs/Day [...] st Contact Info) Description 06/19/2024 8:00 AM CHEMICAL MACHINE TENDER Appointment [facility] Mammography [address] [place] [phone] Gwen Calero, PAC [address] [place] [address] Discharge Disposition: Discharged to home or Selfcare 06/19/2024 9:00 AM CHEMICAL MACHINE TENDER Appointment [facility] Ultrasound [address] [place] [address] Gwen Calero, PAC [address] [place] [address] Discharge Disposition: Discharged to home or Selfcare 08/13/2024 9:00 AM CDT [facility] - [place] [address] [facility] [place] [id number] Gwen Calero, PAC [address] [facility] [address] documented as of this encounter Visit Diagnoses Not on filedocumented in this encounter Additional Health Concerns Assessment Noted Time PHQ-9 Depression Total Score: 0 06/29/19 20 1:22 PM CHEMICAL MACHINE TENDER documented as of this encounter Care Teams Channel Supervisor Relationship Specialty Start Date End Date Carmen Brown MD PCP - General Family Medicine 10/28/15 06/11/21 Adam Alejo DO Gastroenterology 01/07/16 Johnna Valente APRN, INSPECTOR PROCESS Nurse Practitioner Advanced Practice Nurse 01/07/16 Marisela Chaidez APRN, INSPECTOR PROCESS Nurse Practitioner Advanced Practice Nurse 01/07/16 Johnathan Pugh MD [address] [place] [address] Obstetrics & Gynecology 08/13/19 documented as of this encounter
--- OUTSIDE RECORDS SUMMARY | 2024-06-09 07:55 | XMS_ITS | Encounter Summary ---
Author Organization [facility] Address [address] [place] [address] Phone Care Team Providers Care Pelletising Extruder Operator Name Role Phone Carmen Brown MD Primary Care Provider Adam Alejo DO Unavailable [phone] Johnna Valente SPRAY BOOTH OPERATOR, DOG TRACK KENNEL MANAGER Unavailable Marisela Chaidez SPRAY BOOTH OPERATOR, DOG TRACK KENNEL MANAGER Unavailable Johnathan Pugh MD Unavailable [phone] Reason for Visit * Reason Comments Medication Refill Encounter Details Date Type Department Care Team (Late st Contact Info) Description 10/09/2019 [facility] [address] [place] [address] Carmen Brown MD [address] [place] [address] Medication Refill Social History Tobacco Use Types [...] Telephone Encounter - Oly Jiménez CMA - 10/11/2019 3:28 PM CDT Yearly scheduled for 04/11. * Telephone Encounter - Carmen Brown MD - 10/11/2019 8:38 AM CDT Advise patient to make a follow-up annual physical visit in 6 months. * Telephone Encounter - Katie Mcfarland, RN - 10/09/2019 8:07 AM CDT Requested Prescriptions Pending Prescriptions Disp Refills ibuprofen (MOTRIN) 800 MG Tablet [Pharmacy Med Name: IBUPROFEN 800 MG TABLET] 90 Tab 0 Sig: TAKE 1 TAB BY MOUTH EVERY 8 HOURS NEEDED FOR MILD OR MORE SEVERE PAIN. Analgesics: NSAIDS - OTC Passed - 10/09/2019 8:07 AM Passed - Valid encounter within last 12 months Past Office Visits Recent Outpatient Visits 1 month ago Chronic midline low back [facility] with [facility] Carmen [facility] MD 3 months ago Chronic bilateral low back pain with bilateral [facility]atic[facility] Katie Currie, INFORMATION TECHNOLOGY ANALYST, DOG TRACK KENNEL MANAGER 3 years ago Diarrhea, unspecified type [facility] PHYSICIAN [facility] FAMILY MEDIC[facility] Carmen Brown MD Upcoming Appointments Powered by Code Rebel - 10/09/2019 8:07 AM Information pending documented in this encounter Plan of Treatment Upcoming Encounters Date Type Department Care Team (Late st Contact Info) Description 06/19/2024 8:00 AM TAR BOILER Appointment [facility] Mammography [address] [place] [address] Gwen Calero, PAC [address] [place] [address] Discharge Disposition: Discharged to home or Selfcare 06/19/2024 9:00 AM TAR BOILER [facility] [address] [place] [address] Gwen Calero, PAC [address] [place] [address] Discharge Disposition: Discharged to home or Selfcare 08/13/2024 9:00 AM CDT [facility] Visit [facility] [place] [address] [place] [address] Gwen Calero, PAC [address] [facility] [place] [address] documented as of this encounter Visit Diagnoses Diagnosis Right foot pain Pain in limb documented in this encounter Additional Health Concerns Assessment Noted Time PHQ-9 Depression Total Score: 0 06/29/19 20 1:22 PM TAR BOILER documented as of this encounter Care Teams Pelletising Extruder Operator Relationship Specialty Start Date End Date Carmen Brown MD PCP - General Family Medicine 10/28/15 06/11/21 Adam Alejo DO Gastroenterology 01/07/16 Johnna Valente APRN, DOG TRACK KENNEL MANAGER Nurse Practitioner Advanced Practice Nurse 01/07/16 Marisela Chaidez, MICHAEL, DOG TRACK KENNEL MANAGER Nurse Practitioner Advanced Practice Nurse 01/07/16 Johnathan Pugh MD [address] [place] [address] Obstetrics & Gynecology 08/13/19 documented as of this encounter
--- OUTSIDE RECORDS SUMMARY | 2024-06-09 07:55 | XMS_ITS | Encounter Summary ---
Author Organization [facility] Address [address] [place] [address] Phone Care Team Providers Care Diver Pumper Name Role Phone Carmen Brown MD Primary Care Provider Adam Alejo DO Unavailable [phone] Johnna Valente ACUTE CARE CERTIFIED NURSING ASSISTANT, EDGE BANDER HAND Unavailable Marisela Chaidez APRN, EDGE BANDER HAND Unavailable Johnathan Pugh MD Unavailable [phone] Reason for Visit * Reason Comments Toe Pain Encounter Details Date Type Department Care Team (Late st Contact Info) Description 11/27/2019 11:10 AM CDT Urgent Care Visit [facility] [address] [place] [address] Erica Catalan APRN, EDGE BANDER HAND [address] [place] [address] Foot injury, left, initial encounter (Primary Dx) Discharge Disposition: Discharged to home [...] Sign Reading Time Taken Comments Blood Pressure 124/78 11/27/2019 11:29 AM CDT Pulse 64 11/27/2019 11:29 AM CDT Temperature 36.8 ??C (98.3 ??F) 11/27/2019 11:29 AM C DT Respiratory Rate - - Oxygen Saturation 98% 11/27/2019 11:29 AM CDT Inhaled Oxygen Concentration - - Weight 80.7 kg (178 lb) 11/27/2019 11:29 AM CDT Height 160 cm (5' 3 ) 11/27/2019 11:29 AM CDT Body Mass Index 31.53 11/27/2019 11:29 AM CDT documented in this encounter Patient Instructions * Patient Instructions* Erica Catalan APN, EDGE BANDER HAND - 11/27/2019 11:10 AM CDT Images from the original note were not included. RICE RICE stands for rest, ice, compression, and elevation. Doing these things helps limit pain and swelling after an injury. RICE also helps injuries heal faster. Use RICE for sprains, strains, and severe bruises or bumps. Follow the tips on this handout and begin RICE as soon as possible after an injury. Rest Pain is your body???s way of telling you to rest an injured area. Whether you have hurt an elbow, hand, foot, or knee, limiting its use will prevent further injury and help you heal. Ice Applying ice right after an injury helps prevent swelling and reduce pain. Don???t place ice directly on your skin. ?? Wrap a cold pack or bag of ice in a thin cloth. Place it over the injured area. ?? Ice for?? 10??minutes every?? 3??hours. Don???t ice for more than?? 20??minutes at a time. Compression Putting pressure (compression) on an injury helps prevent swelling and provides support. ?? Wrap the injured area firmly with an elastic bandage. If your hand or foot tingles, becomes discolored, or feels cold to the touch, the bandage may be too tight. Rewrap it more loosely. ?? If your bandage becomes too loose, rewrap it. ?? Do not wear an elastic bandage overnight. Elevation Keeping an injury elevated helps reduce swelling, pain, and throbbing. Elevation is most effective??when the injury is kept elevated higher than the heart. Call your healthcare provider if you notice any of the following: ?? Fingers or toes feel numb, are cold to the touch, or change color. ?? Skin looks shiny or tight. ?? Pain, swelling, or bruising worsens and is not improved with elevation. [employer] last reviewed this educational content on 10/04/2017 ?? 8568-0184 [employer]. [address] [place] [address]. All rights reserved. This information is not intended as a substitute for professional medical care. Always follow your healthcare professional's instructions. documented in this encounter Progress Notes * Porsha Johnson RTR - 11/27/2019 11:10 AM CDT Shalonda Montanez Constantino complains of Slammed 5th toe in a door x 4 days and today kicked a rip stick and now the pain is going across all of her toes and along the lateral side of her foot. Toe Pain This is a new problem. The current episode started in the past 7 days. The problem occurs constantly. The problem has been gradually worsening. She has tried NSAIDs for the symptoms. The treatment provided mild relief. Today's ROS * Erica Catalan APN, CNP - 11/27/2019 11:10 AM CDT Images from the original note were not included. Subjective: Chief complaint and all history documented by ancillary staff, and any copy/pasted information werereviewed and verified, with additions or corrections, as appropriate. Past family, social, medical history was reviewed. Review of Systems Musculoskeletal: Positive for arthralgias (left foot injury). Objective: Physical Exam Vitals signs and nursing note reviewed. Cardiovascular: Rate and Rhythm: Normal rate. Pulmonary: Effort: Pulmonary effort is normal. Musculoskeletal: Left foot: Tenderness and swelling present. Feet: Neurological: General: No focal deficit present. Mental Status: She is alert and oriented to person, place, and time. Psychiatric: Mood and Affect: Mood normal. Vitals: 11/27/19 1129 BP: 124/78 Pulse: 64 Temp: 98.3 ??F (36.8 ??C) TempSrc: Temporal SpO2: 98% Weight: 178 lb (80.7 kg) Height: 5' 3 (1.6 m) Xrays were obtained in clinic today. Radiology did review xrays and results were discussed with patient/patient family. Assessment and Plan See Diagnoses, Orders, Follow-up, and Instructions Diagnoses and all orders for this visit: Foot injury, left, initial encounter - XR FOOT 3 OR MORE VIEWS LEFT Apply a compressive ALIZE bandage. Rest and elevate the affected painful area. Apply cold compresses intermittently as needed. As pain recedes, begin normal activities slowly as tolerated. Call if symptoms persist. AVS from today was printed, discussed with patient/family and given to patient/family documented in this encounter Plan of Treatment Upcoming Encounters Date Type Department Care Team (Late st Contact Info) Description 06/19/2024 8:00 AM POWERHOUSE ELECTRICIAN [facility] 1 [place] [address] Gwen Calero, PAC [address] [place] [address] Discharge Disposition: Discharged to home or Selfcare 06/19/2024 9:00 AM POWERHOUSE ELECTRICIAN [facility] 1 [place] [address] Gwen Calero, PAC [address] [place] [address] Discharge Disposition: Discharged to home or Selfcare 08/13/2024 9:00 AM CDT [facility] [place] [address] [place] [address] Gwen Calero, PAC [address] [address] documented as of this encounter Procedures Procedure Name Priority Date/Time Associated Diagnosis Comments XR FOOT 3 OR MORE VIEWS LEFT Stat with Interpretation 11/27/2019 11:48 AM CDT Foot injury, left, initial encounter documented in this encounter Results * XR FOOT 3 OR MORE VIEWS LEFT (11/27/2019 11:48 AM CDT) Anatomical Region Laterality Modality LOWER EXTREMITY, foot Left Digital Ra diography 11/27/2019 11:5 7 AM CDT Impressions 11/27/2019 12:00 PM CDT IMPRESSION: ??No acute osseous abnormality. Narrative 11/27/2019 12:00 PM CDT EXAM DESCRIPTION: ?? XR FOOT 3 OR MORE VIEWS LEFT REASON FOR STUDY: ?? Slammed left 5th toe in a door 4 days ago. ??Pain and bruising of the left 5th toe and along the left lateral foot for 4 days. TECHNIQUE: ?? AP, lateral and oblique radiographic views acquired of the left foot. COMPARISON: ?? 11/20/2018 FINDINGS: ?? BONES/JOINTS: There is no acute fracture or dislocation.The joint spaces are normal. SOFT TISSUES: Unremarkable. THIS IS AN ELECTRONICALLY VERIFIED FINAL REPORT 11/27/2019 11:57 AM - Electronically signed by Manuel Suarez M.D. EMIL: EMIL D: ??11/27/2019 11:57 AM T: ??11/27/2019 11:57 AM Report ID: [id number] Reading Location: ??[id number] Procedure Note Manuel Suarez MD - 11/27/2019 EXAM DESCRIPTION: XR FOOT 3 OR MORE VIEWS LEFT REASON FOR STUDY: Slammed left 5th toe in a door 4 days ago. Pain and bruising of the left 5th toe and along the left lateral foot for 4 days. TECHNIQUE: AP, lateral and oblique radiographic views acquired of the left foot. COMPARISON: 11/20/2018 FINDINGS: BONES/JOINTS: There is no acute fracture or dislocation.The joint spaces are normal. SOFT TISSUES: Unremarkable. THIS IS AN ELECTRONICALLY VERIFIED FINAL REPORT 11/27/2019 11:57 AM - Electronically signed by Manuel Suarez M.D. EMIL: EMIL Report ID: [id number] Reading Location: [id number] IMPRESSION: No acute osseous abnormality. Erica Catalan APRN, EDGE BANDER HAND IMG DIAGNOSTIC OR DERABLES Final Result documented in this encounter Visit Diagnoses Diagnosis Foot injury, left, initial encounter- Primary documented in this encounter Additional Health Concerns Assessment Noted Time PHQ-9 Depression Total Score: 0 06/29/19 20 1:22 PM POWERHOUSE ELECTRICIAN documented as of this encounter Care Teams Diver Pumper Relationship Specialty Start Date End Date Carmen Brown MD PCP - General Family Medicine 10/28/15 06/11/21 Adam Alejo DO Gastroenterology 01/07/16 Johnna Valente APRN, EDGE BANDER HAND Nurse Practitioner Advanced Practice Nurse 01/07/16 Marisela Chaidez APRN, EDGE BANDER HAND Nurse Practitioner Advanced Practice Nurse 01/07/16 Johnathan Pugh MD [address] [place] [address] Obstetrics & Gynecology 08/13/19 documented as of this encounter
--- OUTSIDE RECORDS SUMMARY | 2024-06-09 07:55 | XMS_ITS | Encounter Summary ---
Author Organization [facility] Address [address] [place] [address] Phone Care Team Providers Care Combat Systems Officer Name Role Phone Carmen Brown MD Primary Care Provider Adam Alejo DO Unavailable [phone] Johnna Valente SUPERVISOR CUTTING AND SEWING ROOM, VASCULAR ULTRASOUND TECHNOLOGIST Unavailable Marisela Chaidez SUPERVISOR CUTTING AND SEWING ROOM, VASCULAR ULTRASOUND TECHNOLOGIST Unavailable Johnathan Pugh MD Unavailable [phone] Reason for Visit * Reason Comments Foot Pain patient states that the right foot pain is better since starting medication Encounter Details Date Type Department Care Team (Late st Contact Info) Description 09/21/2019 1:30 PM CDT Telemedicine [facility] [address] [place] [id number] Carmen Brown MD [address] [place] [address] Chronic midline low back pain without sciatica (Primary Dx); Right foot pain Social History Tobacco Use Types Packs/Day Years [...] Progress Notes * Estefania Lee CMA - 09/21/2019 1:30 PM CDT Shalonda Constantino is on telephone visit for Foot Pain (patient states that the right foot pain is better since starting medication ) . Medications and allergies reconciled with Shalonda Constantino. * Carmen Brown MD - 09/21/2019 1:30 PM CDT Patient was assessed via telephone for a duration of 11 minutes. Patient verbally consented for this service to be performed and billed. HPI: Shalonda Constantino is a 34 y.o. female evaluated today for right foot pain and chronic low back pain. She reports going to MRI for her back which was approved by her insurance. She apparently felt claustrophobic and had to discontinue. She called our office and I ordered hydroxyzine to take prior to MRI. She has not rescheduled her MRI of the packet. Her right foot pain is much better after she started amitriptyline 50 mg q.h.s.. Her right foot MRIhas not been approved by her insurance because she did not complete 6 weeks of physical therapy. She does not want to get MRI of her right foot at this time. She wants to wait till the COVID 19 crisis is complete and when it is safe to return back to officeshe will make an appointment and schedule her MRI. Current Outpatient Medications: ??? amitriptyline (ELAVIL) 50 MG Tablet ??? Etonogestrel-Ethinyl Estradiol (NUVARING) 0.12-0.015 MG/24HR RING ??? ibuprofen (MOTRIN) 800 MG Tablet The past medical, surgical, family and social histories, and allergies were reviewed and updated as needed. ROS: All 14 systems reviewed and negative except as mentioned in the HPI. Plan: 1. Chronic midline low back pain without sciatica - she needs to schedule MRI of her lumbar spine - premedication - hydroxyzine ordered 4 claustrophobia. 2. Right foot pain - pain has improved with amitriptyline 50 mg q.h.s. and ibuprofen 600 mg t.i.d. p.r.n. - right foot MRI has been denied by insurance because she did not complete 6 weeks of physical therapy Follow Up: As needed for physical. Education materials sent via the patient's [employer] account. documented in this encounter Plan of Treatment Upcoming Encounters Date Type Department Care Team (Late st Contact Info) Description 06/19/2024 8:00 AM CORRUGATOR [facility] [address] [place] [address] Gwen Calero, PAC [address] [place] [address] Discharge Disposition: Discharged to home or Selfcare 06/19/2024 9:00 AM CORRUGATOR [facility]ointment [facility] Ul[facility] [address] [place] [address] Gwen Calero, PAC [address] [place] [address] Discharge Disposition: Discharged to home or Selfcare 08/13/2024 9:00 AM CDT [facility] [place] [address] [place] [phone] Gwen Calero, PAC [address] [place] [address] documented as of this encounter Visit Diagnoses Diagnosis Chronic midline low back pain without sciatica- Primary Right foot pain Pain in limb documented in this encounter Additional Health Concerns Assessment Noted Time PHQ-9 Depression Total Score: 0 06/29/19 20 1:22 PM CORRUGATOR documented as of this encounter Care Teams Combat Systems Officer Relationship Specialty Start Date End Date Carmen Brown MD PCP - General Family Medicine 10/28/15 06/11/21 Adam Alejo DO Gastroenterology 01/07/16 Johnna Valente, SUPERVISOR CUTTING AND SEWING ROOM, VASCULAR ULTRASOUND TECHNOLOGIST Nurse Practitioner Advanced Practice Nurse 01/07/16 Marisela Chaidez, MICHAEL, VASCULAR ULTRASOUND TECHNOLOGIST Nurse Practitioner Advanced Practice Nurse 01/07/16 Johnathan Pugh MD [address] [place] [address] Obstetrics & Gynecology 08/13/19 documented as of this encounter
--- OUTSIDE RECORDS SUMMARY | 2024-06-09 07:55 | XMS_ITS | Encounter Summary ---
Author Organization [facility] Address [address] [place] [address] Phone Care Team Providers Care Biologist Name Role Phone Carmen Brown MD Primary Care Provider Adam Alejo DO Unavailable [phone] Johnna Valente VISUAL BASIC PROGRAMMER, ROLLER SHOP SUPERVISOR Unavailable Marisela Chaidez VISUAL BASIC PROGRAMMER, ROLLER SHOP SUPERVISOR Unavailable Johnathan Pugh MD Unavailable [phone] Encounter Details Date Type Department Care Team (Late st Contact Info) Description 08/21/2019 Telephone [facility] [address] [place] [address] Carmen Brown MD [address] [place] [address] Social History Tobacco Use Types [...] Telephone Encounter - Tran Gannon RN - 08/24/2019 8:43 AM CDT Called patient to inform of medication. Verbalized understanding. * Addendum Note - Carmen Brown MD - 08/22/2019 10:15 PM CDTAddended by: CARMEN BROWN on: 08/22/2019 10:15 PM Modules accepted: Orders * Telephone Encounter - Carmen Brown MD - 08/22/2019 10:15 PM CDT Atarax ordered. * Telephone Encounter - Aliyah Vásquez RN - 08/22/2019 4:29 PM CDT Patient is asking for a 1 time dose of anxiety medication for her MRI. Patient states she does not have generalized anxiety but is claustrophobic. Is PCP ok to order a 1 time med for her MRI? Please advise * Telephone Encounter - Tran Gannon RN - 08/22/2019 4:01 PM CDT Attempted to call, no answer at this time. Left message to call back. * Telephone Encounter - Carmen Brown MD - 08/22/2019 1:44 PM CDT Need to be seen in office for anxiety. * Telephone Encounter - Tran Gannon RN - 08/22/2019 12:55 PM CDT Call to patient to inform Medrol Dosepak ordered, states she has already picked up and is inquiringabout something for anxiety. Informed patient no order for anxiety medication noted. Patient inquiring about prior authorization for MRI and transferred her to referrals. * Telephone Encounter - Carmen Brown MD - 08/21/2019 4:51 PM CDT Please inform patient, Medrol Dosepak ordered. * Telephone Encounter - Aliyah Vásquez RN - 08/21/2019 11:34 AM CDT Patient is calling to see if PCP will refill the prednisone for her foot pain. Patient is waiting on a PA for the MRI then will get it scheduled. Is PCP ok to refill the patients prednisone? Please advise Patient also asking if PCP will order something for her anxiety for the MRI? Please advise documented in this encounter Plan of Treatment Upcoming Encounters Date Type Department Care Team (Late st Contact Info) Description 06/19/2024 8:00 AM CLOTH FINISHING RANGE BACK TENDER [facility] 1 [place] [address] Gwen Calero, PAC [address] [place] [address] Discharge Disposition: Discharged to home or Selfcare 06/19/2024 9:00 AM CLOTH FINISHING RANGE BACK TENDER [facility] 1 [place] [address] Gwen Calero, PAC [address] [facility] [address] Discharge Disposition: Discharged to home or Selfcare 08/13/2024 9:00 AM CDT [facility] [place] [address] [place] [phone] Gwen Calero, PAC [address] [facility] [address] documented as of this encounter Visit Diagnoses Not on filedocumented in this encounter Additional Health Concerns Assessment Noted Time PHQ-9 Depression Total Score: 0 06/29/19 20 1:22 PM CLOTH FINISHING RANGE BACK TENDER documented as of this encounter Care Teams Biologist Relationship Specialty Start Date End Date Carmen Brown MD PCP - General Family Medicine 10/28/15 06/11/21 Adam Alejo DO Gastroenterology 01/07/16 Johnna Valente APRN, ROLLER SHOP SUPERVISOR Nurse Practitioner Advanced Practice Nurse 01/07/16 Marisela Chaidez APRN, ROLLER SHOP SUPERVISOR Nurse Practitioner Advanced Practice Nurse 01/07/16 Johnathan Pugh MD [address] [place] [address] Obstetrics & Gynecology 08/13/19 documented as of this encounter
--- OUTSIDE RECORDS SUMMARY | 2024-06-09 07:55 | XMS_ITS | Encounter Summary ---
Author Organization [facility] Address [address] [place] [address] Phone Care Team Providers Care Heat Plant Specialist Name Role Phone Carmen Brown MD Primary Care Provider Adam Alejo DO Unavailable [phone] Johnna Valente THERAPIST PHYS, SCRUM PRODUCT OWNER Unavailable Marisela Chaidez THERAPIST PHYS, SCRUM PRODUCT OWNER Unavailable Johnathan Pugh MD Unavailable [phone] Reason for Visit * Reason Onset Date Comments Prior Authorization 08/16/2019 Encounter Details Date Type Department Care Team (Late st Contact Info) Description 08/16/[address] [facility] [address] [place] [address] Carmen Brown MD [address] [place] [address] Prior Authorization Social History Tobacco Use Types Packs/Day Years [...] encounter Miscellaneous Notes * Addendum Note - Taylor Capmoverde CMA - 12/21/2019 8:48 AM CDTAddended by: TAYLOR CAMPOVERDE on: 12/21/2019 08:48 AM Modules accepted: Orders * Telephone Encounter - Tran Gannon RN - 08/22/2019 4:00 PM CDT Attempted to call patient,no answer at this time. Left message to call back. * Telephone Encounter - Carmen Brown MD - 08/22/2019 1:45 PM CDT Please inform patient, Need PT. Please pend order if patient agrees. Changed DX. * Telephone Encounter - Kate Kamara RN - 08/22/2019 8:29 AM CDT Per Naz, ICD 10 code should be changed back to right foot pain please. Also, Naz believes this will denied due to patient not having 6 weeks PT. * Addendum Note - Carmen Brown MD - 08/20/2019 10:27 PM CDTAddended by: CARMEN BROWN on: 08/20/2019 10:27 PM Modules accepted: Orders * Telephone Encounter - Carmen Brown MD - 08/20/2019 10:27 PM CDT Ordered. * Telephone Encounter - Carmen Brown MD - 08/20/2019 11:32 AM CDT Okay for precertification. Please pend the right diagnosis with MRI order. * Telephone Encounter - Aliyah Vásquez RN - 08/20/2019 11:12 AM CDT Patient is calling to see if this has been completed. Please advise Patient appointment is today 08/19 * Addendum Note - Kate Kamara RN - 08/20/2019 9:00 AM CDTAddended by: KATE KAMARA on: 08/20/2019 09:00 AM Modules accepted: Orders * Telephone Encounter - Kate Kamara RN - 08/20/2019 8:55 AM CDT Naz, referral dept calling and states CPT [place] used [place]. [place] [address]. Should read lower extremity other than joint . Please advise. * Telephone Encounter - Harmony Amador RN - 08/17/2019 11:44 AM CDT Patient is calling and states she's scheduled for 08/19 to have the MRI done at [facility]. She states a pre-cert is needed. * Telephone Encounter - Harmony Amador RN - 08/16/2019 4:03 PM CDT Patient is calling to return left message. Notified patient of provider's note. Verbalized understanding. Transferred patient to scheduling to cancel MRI. Faxed order to [facility]. * Telephone Encounter - Chasidy Uribe RN - 08/16/2019 3:51 PM CDT Left message for patient to call back. * Telephone Encounter - Chasidy Uribe RN - 08/16/2019 3:50 PM CDT Images from the original note were not included. Merlene Fregoso Amy D, RN 2 hours ago (1:06 PM) Patient will need to cancel appointments at [facility] for the tests to be performed on 08/24/2019. ??Oncethose are canceled, scheduling and authorization at [facility] will be requested. [facility] [address] [place] [id number] * Telephone Encounter - Aliyah Vásquez, RN - 08/16/2019 10:16 AM CDT Patient is calling and states she would like her MRI of the right foot and the spine and the PA to be sent to [facility]. Has this order been approved? Please advise [facility] FAX: documented in this encounter Plan of Treatment Upcoming Encounters Date Type Department Care Team (Late st Contact Info) Description 06/19/2024 8:00 AM AOC OPERATIONS INTELLIGENCE CHIEF Appointment [facility] Mammography 1 [place] [address] Gwen Calero, PAC [address] [place] [address] Discharge Disposition: Discharged to home or Selfcare 06/19/2024 9:00 AM AOC OPERATIONS INTELLIGENCE CHIEF Appointment [facility] Ultrasound 1 [facility] [place] [address] Gwen Calero, PAC [address] [place] [address] Discharge Disposition: Discharged to home or Selfcare 08/13/2024 9:00 AM CDT [facility] [place] [address] [facility] [place] [address] Gwen Calero, PAC [address] [place] [address] documented as of this encounter Visit Diagnoses Diagnosis Right leg pain- Primary Pain in limb Right foot pain Pain in limb documented in this encounter Additional Health Concerns Assessment Noted Time PHQ-9 Depression Total Score: 0 06/29/19 20 1:22 PM AOC OPERATIONS INTELLIGENCE CHIEF documented as of this encounter Care Teams Heat Plant Specialist Relationship Specialty Start Date End Date Carmen Brown MD PCP - General Family Medicine 10/28/15 06/11/21 Adam Alejo DO Gastroenterology 01/07/16 Johnna Valente, THERAPIST PHYS, SCRUM PRODUCT OWNER Nurse Practitioner Advanced Practice Nurse 01/07/16 Marisela Chaidez, MICHAEL, SCRUM PRODUCT OWNER Nurse Practitioner Advanced Practice Nurse 01/07/16 Johnathan Pugh MD [address] [facility] [address] [facility] [address] [place] [address] Obstetrics & Gynecology 08/13/19 documented as of this encounter
--- OUTSIDE RECORDS SUMMARY | 2024-06-09 07:55 | XMS_ITS | Encounter Summary ---
Author Organization [facility] Address [address] [place] [address] Phone Care Team Providers Care Distributed Generation Project Manager Name Role Phone Carmen Brown MD Primary Care Provider [phone] Adam Alejo DO Unavailable [phone] Johnna Valente APRN, CHEMICAL SALES REPRESENTATIVE Unavailable [phone] Marisela Chaidez APRN, CHEMICAL SALES REPRESENTATIVE Unavailable Johnathan Pugh MD Unavailable [phone] Reason for Visit * PT/OT/ST (Less Than 4 Weeks) - Closed Specialty Diagnoses / Procedures Referred By Kavon lackey Referred To Contact Rehabilitation Diagnoses Chronic bilateral low back pain with bilateral sciatica Katie Caban APRN, CHEMICAL SALES REPRESENTATIVE Phone: tel: fax: [facility] [address] [place] [address] Phone: tel: fax: Referral ID Status Reason Start Date Expiration Date Visits Re quested Visits Authorized [id number] Closed 06/29/2019 1 13 Encounter Details Date Type Department Care Team (Latest Contact Info) Description 08/31/2019 12:30 PM CDT Physical [facility]Spe[facility] [address] [place] [address] Katie Caban APRN, CHEMICAL SALES REPRESENTATIVE [address] [place] [address] Radha Mohan, PT [place] Discharge Disposition: Discharged to home or Selfcare [...] as of this encounter Miscellaneous Notes * Plan of Care - Radha Mohan, PT - 08/31/2019 12:30 PM CDT Treatment Note - Electronically signed by: RADHA MOHAN, PT August 31, 2019 SUBJECTIVE: Patient reports that she is doing better. She continues to have pain in the foot and toe but it is better. They gave her another round of steroids and that helped. She was not able to get the MRI because she freaked out when they put her head in the machine so she needs to get something for anxiety before she can do that. She has not really been doing the exercises except for the prone press upbecause it has felt better and did not want to to do much to mess it up. Objective TREATMENT: Other treatment notes: Refer to PT OP Rehab Therapy Treatment flowsheet for details/minutes. Instructed patient to continue to do home program for prone press ups and to avoid activities that increase radicular symptoms. Manual therapy: Muscle energy to correct anterior rotation on the right. Joint mobilization to the thoracic spine. Area being treated: multifidus Number of sites: 4 Patient position: lying prone Needle size and number: .[id number] Patient response or change in symptom behavior: ltr and decreased pain Any adverse response: none reported or observed. Area being treated: glut medius Number of sites: 2 Patient position: lying sidelyig Needle size and number: .[id number] Patient response or change in symptom behavior: ltr and decreased pain Any adverse response: none verbalized or observed Area being treated: anterior tib Number of sites: 1 Patient position: sitting up Needle size and number: .[id number] Patient response or change in symptom behavior: reproduction of pain in top of foot and great toe, decreased foot and toe pain following Any adverse response: none Area being treated: posterior tibialis Number of sites: 1 Patient position: sitting up Needle size and number: .[id number] Patient response or change in symptom behavior: slight reproduction of symptoms in foot Any adverse response: droplet of blood with slight bruising noted to surrounding tissue Mechanical traction: Mechanical traction: 55#/25# high low for 45sec/15sec Interventions provided this session: manual therapy, mechanical traction. Therapist provided Skilled therapy by identifying substitutions during exercises with correction ofform as well as identifying and releasing of soft tissue restrictions including identification of trigger points and dry needling to appropriate points. . Discussed increasing exercise at home and patient wants to start exercising for wt loss. Asked if she could do the elliptical or the bike and instructed her to try the elliptical but to start with slow speed and short duration but to stop if there is ay increase in symptoms ASSESSMENT: Other Details: Patient demonstrates progress as evidenced by decreased pain in foot and leg, decreased back pain. Patient would benefit from continued skilled therapy due to the following functional limitations:. difficulty cooking, cleaning the house, carrying her daughter, going up and down steps with laundry,picking up toys and participating in social activities due to pain Skilled interventions are necessary as demonstrated by the need for: - Manual therapy to address joint and soft tissue impairments and pain - Patient education regarding posture, ergonomics and body mechanics - Progression of home exercise program All charges entered today are appropriate and separate from each other. PLAN snf goals: Goals to be achieved in 8 visits Patient will demonstrate the followin. Patient to demonstrate improved hamstring length to -15 degrees bilaterally without increase in back pain to improve ability to get dressed without pain. 2. Patient to demonstrate improved glut med and glut max strength with good lumbar stability to improve ability to go up and down steps to do laundry 3. Patient to report sleeping through the night without waking due to back pain. 4. Patient to demonstrate trunk range of motion within functional limits without increase in back pain to be able to perform household tasks with minimal complaints of pain. 5. Patient to report JOSS of less than 25% to demonstrate improved activity tolerance 6. Patient to be independent with home program to maintain gains made in therapy. Planned Interventions This patient will likely be seen 1x/week for 8 visits for the following interventions: - Manual techniques including joint mobilizations, MFR, soft tissue massage, IASTM and others as needed for pain relief, soft tissue extensibility and joint mobility - Therapeutic exercise program for: motion/mobility, strengthening, flexibility, and functional limitations - Therapeutic activities for functional activity education/training, and in home safety recommendations as appropriate - Neuro Muscular Re-education for body mechanics education and postural re- education as appropriate - Patient education regarding posture, ergonomics, body mechanics, HEP progression and exercise performance - Individualized home exercise program - Modalities as needed for pain relief, anti-inflammatory effect and soft tissue extensibility -Mechanical traction Precautions: none noted at this time. Future treatment sessions to include: instruction in home program.. Treatment may be altered based on patient progression and symptoms. The plan of care, as well as the benefits and risks of therapy were reviewed with the patient and the patient consented to treatment. . * Plan of Care - Radha Mohan PT - 08/31/2019 12:30 PM CDT Discharge Summary: Patient called and cancelled remaining appointments due to COVID-[address] Instructed patient to call doctor and ask for new orders is she continues to need therapy when the orders are lifted and it is safe to resume normal activity. Patient in agreement with plan. Cosigned by Katie Caban APN, [place] at 09/07/2019 8:16 AM CDT documented in this encounter Plan of Treatment Upcoming Encounters Date Type Department Care Team (Late st Contact Info) Description 06/19/2024 8:00 AM COLLEGE INSTRUCTOR [facility] [address] [place] [address] Gwen Calero, PAC [address] [place] [address] Discharge Disposition: Discharged to home or Selfcare 06/19/2024 9:00 AM COLLEGE INSTRUCTOR [facility] [address] [place] [address] Gwen Calero, PAC [address] [place] [address] Discharge Disposition: Discharged to home or Selfcare 08/13/2024 9:00 AM CDT [facility] [place] [address] [place] [id number] Gwen Calero, PAC [address] [place] [address] documented as of this encounter Visit Diagnoses Not on filedocumented in this encounter Additional Health Concerns Assessment Noted Time PHQ-9 Depression Total Score: 0 06/29/19 20 1:22 PM COLLEGE INSTRUCTOR documented as of this encounter Care Teams Distributed Generation Project Manager Relationship Specialty Start Date End Date Carmen Brown MD PCP - General Family Medicine 10/28/15 06/11/21 Adam Alejo DO Gastroenterology 01/07/16 Johnna Valente APRN, CHEMICAL SALES REPRESENTATIVE Nurse Practitioner Advanced Practice Nurse 01/07/16 Marisela Chaidez APRN, CHEMICAL SALES REPRESENTATIVE Nurse Practitioner Advanced Practice Nurse 01/07/16 Johnathan Pugh MD [address] [place] [address] Obstetrics & Gynecology 08/13/19 documented as of this encounter
--- OUTSIDE RECORDS SUMMARY | 2024-06-09 07:55 | XMS_ITS | Encounter Summary ---
Author Organization [facility] Care Team Providers Care Field Enumerator Name Role Phone Carmen Brown MD Primary Care Provider Aadm Alejo DO Unavailable [phone] Johnna Valente MOTEL KEEPER, HANDTOOLS REPAIRER Unavailable Marisela Chaidez MOTEL KEEPER, HANDTOOLS REPAIRER Unavailable Johnathan Pugh MD Unavailable [phone] Encounter Details Date Type Department Care Team (Latest Contact Info) Description 08/22/2019 Travel Social History Tobacco Use Types Packs/Day [...] st Contact Info) Description 06/19/2024 8:00 AM EMPLOYMENT SPECIALIST Appointment [facility] Mammography [address] [place] [id number] Gwen Calero, PAC [address] [place] [address] Discharge Disposition: Discharged to home or Selfcare 06/19/2024 9:00 AM EMPLOYMENT SPECIALIST Appointment [facility] Ultrasound [address] [place] [address] Gwen Calero, PAC [address] [place] [address] Discharge Disposition: Discharged to home or Selfcare 08/13/2024 9:00 AM CDT [facility] [place] [address] [place] [id number] Gwen Calero, PAC [address] [facility] [place] [address] documented as of this encounter Visit Diagnoses Not on filedocumented in this encounter Additional Health Concerns Assessment Noted Time PHQ-9 Depression Total Score: 0 06/29/19 20 1:22 PM EMPLOYMENT SPECIALIST documented as of this encounter Care Teams Field Enumerator Relationship Specialty Start Date End Date Carmen Brown MD PCP - General Family Medicine 10/28/15 06/11/21 Adam Alejo DO Gastroenterology 01/07/16 Johnna Valente APRN, HANDTOOLS REPAIRER Nurse Practitioner Advanced Practice Nurse 01/07/16 Marisela Chaidez APRN, HANDTOOLS REPAIRER Nurse Practitioner Advanced Practice Nurse 01/07/16 Johnathan Pugh MD [address] [place] [address] Obstetrics & Gynecology 08/13/19 documented as of this encounter
--- OUTSIDE RECORDS SUMMARY | 2024-06-09 07:55 | XMS_ITS | Encounter Summary ---
Author Organization [facility] Address [address] [place] [address] Phone Care Team Providers Care Supervisor Facepiece Line Name Role Phone Carmen Brown MD Primary Care Provider [phone] Adam Alejo DO Unavailable [phone] Johnna Valente MACHINING TECHNICIAN, HEALTH COMMUNICATIONS SPECIALIST Unavailable Marisela Chaidez APRN, HEALTH COMMUNICATIONS SPECIALIST Unavailable Johnathan Pugh MD Unavailable [phone] Encounter Details Date Type Department Care Team (Latest Contact Info) Description 11/27/2019 11:45 AM CDT Ancillary Procedure [facility] - MEDICAL IM[facility] [address] [place] [address] Discharge Disposition: Discharged to home or Selfcare [...] st Contact Info) Description 06/19/2024 8:00 AM GROUND CREWMAN [facility]ment [facility] 1 [facility] [place] [address] Gwen Calero, PAC [address] [place] [address] Discharge Disposition: Discharged to home or Selfcare 06/19/2024 9:00 AM GROUND CREWMAN [facility]ment [facility] 1 [facility] [place] [address] Gwen Calero, PAC [address] [place] [address] Discharge Disposition: Discharged to home or Selfcare 08/13/2024 9:00 AM CDT [facility] [place] [address] [place] [address] Gwen Calero, PAC [address] [place] [address] documented as of this encounter Procedures Procedure [...] AM T: ??11/27/2019 11:57 AM Report ID: [id number] Reading Location: ??[id number] Procedure Note Manuel Suarez MD - 11/27/2019 [...] 11:57 AM - Electronically signed by Manuel STEIN: EMIL Report ID: [id number] Reading Location: [id number] IMPRESSION: No acute osseous abnormality. Erica Catalan MACHINING TECHNICIAN, HEALTH COMMUNICATIONS SPECIALIST IMG DIAGNOSTIC OR DERABLES Final Result documented in this encounter Visit Diagnoses Not on filedocumented in this encounter Additional Health Concerns Assessment Noted Time PHQ-9 Depression Total Score: 0 06/29/19 20 1:22 PM GROUND CREWMAN documented as of this encounter Care Teams Supervisor Facepiece Line Relationship Specialty Start Date End Date Carmen Brown MD PCP - General Family Medicine 10/28/15 06/11/21 Adam Alejo DO Gastroenterology 01/07/16 Johnna Valente APRN, HEALTH COMMUNICATIONS SPECIALIST Nurse Practitioner Advanced Practice Nurse 01/07/16 Marisela Chaidez APRN, HEALTH COMMUNICATIONS SPECIALIST Nurse Practitioner Advanced Practice Nurse 01/07/16 Johnathan Pugh MD [address] [place] [address] Obstetrics & Gynecology 08/13/19 documented as of this encounter
--- OUTSIDE RECORDS SUMMARY | 2024-06-09 07:56 | XMS_ITS | Encounter Summary ---
Author Organization [facility] Address [address] [place] [address] Phone Care Team Providers Care Web Development Intern Name Role Phone Carmen Brown MD Primary Care Provider [phone] Adam Alejo DO Unavailable [phone] Johnna Valente HELPER ELECTRICAL, CAR PACKER Unavailable [phone] Marisela Cahidez APRN, CAR PACKER Unavailable Reason for Visit * PT/OT/ST (Less Than 4 Weeks) - Closed Specialty Diagnoses / Procedures Referred By Kavon lackey Referred To Contact Rehabilitation Diagnoses Chronic bilateral low back pain with bilateral sciatica Katie Caban, MICHAEL, CAR PACKER Phone: tel: fax: [facility] [address] [place] [address] Phone: tel: fax: Referral ID Status Reason Start Date Expiration Date Visits Re quested Visits Authorized [id number] Closed 06/29/2019 1 13 Encounter Details Date Type Department Care Team (Latest Contact Info) Description 08/03/2019 1:00 PM ALTERATIONS WORKROOM CLERK [facility] [address] [place] [address] Katie Caban, HELPER ELECTRICAL, CAR PACKER [address] [place] [address] Paula Mohan, PT [place] Discharge Disposition: Discharged to [...] Miscellaneous Notes * Plan of Care - Paula Mohan, PT - 08/03/2019 1:00 PM CST Treatment Note - Electronically signed by: PAULA MOHAN, PT August 03, 2019 SUBJECTIVE: Patient reports that the back and top of the leg has been feeling a lot better since last visit. She continues to have lots of foot and calf pain though. Reports she can hardly even tolerate putting weight through it at times. Went to [facility] because it got so bad and they though it might be due to the foot and maybe plantar fasciitis from how she was walking. Objective TREATMENT: Other treatment notes: Refer to PT OP Rehab Therapy Treatment flowsheet for details/minutes. Patient response to new home exercises provided today: continue with stretching and clam shells Interventions provided this session: manual therapy and therapeutic procedures. Taped fibula posterior at distal tib fib to decrease pain in standing and improve gait to decrease back pain. Area being treated: glut minimus Number of sites: 1 Patient position: sidelying Needle size and number: .[id number] Patient response or change in symptom behavior: ltr and repoduction of symptoms into the leg Any adverse response: None verbalized by patient or noted on observation Area being treated: rectus femorus Number of sites: 1 Patient position: lying supine Needle size and number: .[id number] Patient response or change in symptom behavior: ltr and reproduction of symptoms into the leg Any adverse response:none noted or reported Area being treated: gastroc Number of sites: 1 Patient position: sitting up Needle size and number: .[id number] Patient response or change in symptom behavior: reproduction of foot pain Any adverse response: none verbalized or noted on observation Area being treated: fibularis Number of sites: 1 Patient position: sitting up Needle size and number: .[id number] Patient response or change in symptom behavior: ltr ad reproduction of foot pain Any adverse response: none Therapist provided Education and Skilled therapy by educated patient on the relationship between foot pain, gait deviations and back pain as well as identifying substitutions during exercises with correction of form as well as identifying and releasing of soft tissue restrictions including identification of trigger points and dry needling to appropriate points. . ASSESSMENT: Other Details: Patient had decreased foot pain, improved wt shift in standing and decreased back pain in standing and with ambulation following treatment this date. Patient demonstrates progress as evidenced by decreased back pain, improved gait, progression of exercises.. Patient would benefit from continued skilled therapy due to the following functional limitations: difficulty cooking, cleaning the house, carrying her daughter, going up and down steps with laundry, picking up toys and participating in social activities due to pain Skilled interventions are necessary as demonstrated by the need for: - Manual therapy to address joint and soft tissue impairments and pain - Direction of therapeutic exercise to address strength, flexibility, and ROM impairments - Therapeutic activities for functional activity education/training, and in home safety recommendations as appropriate - Patient education regarding posture, ergonomics and body mechanics All charges entered today are appropriate and separate from each other. PLAN ad terminal makeup operator goals: Goals to be achieved in 8 [...] and the patient consented to treatment. . RATIONS WORKROOM CLERK documented in this encounter Plan of Treatment Upcoming Encounters Date Type Department Care Team (Late st Contact Info) Description 06/19/2024 8:00 AM ALTERATIONS WORKROOM CLERK [facility] [address] [place] [address] Gwen Calero, PAC [address] [place] [address] Discharge Disposition: Discharged to home or Selfcare 06/19/2024 9:00 AM ALTERATIONS WORKROOM CLERK [facility] [address] [place] [address] Gwen Calero, PAC [address] [place] [address] Discharge Disposition: Discharged to home or Selfcare 08/13/2024 9:00 AM CDT [facility] [place] [address] [place] [id number] Gwen Calero, PAC [address] [place] [address] documented as of this encounter Visit Diagnoses Not on filedocumented in this encounter Additional Health Concerns Assessment Noted Time PHQ-9 Depression Total Score: 0 06/29/19 20 1:22 PM ALTERATIONS WORKROOM CLERK documented as of this encounter Care Teams Web Development Intern Relationship Specialty Start Date End Date Carmen Brown MD PCP - General Family Medicine 10/28/15 06/11/21 Adam Alejo DO Gastroenterology 01/07/16 Johnna Valente APRN, CAR PACKER Nurse Practitioner Advanced Practice Nurse 01/07/16 Marisela Chaidez APRN, CAR PACKER Nurse Practitioner Advanced Practice Nurse 01/07/16 documented as of this encounter
--- OUTSIDE RECORDS SUMMARY | 2024-06-09 07:56 | XMS_ITS | Encounter Summary ---
Author Organization [facility] Address [address] [place] [address] Phone Care Team Providers Care Ordnance Artificer Name Role Phone Carmen Brown MD Primary Care Provider [phone] Adam Alejo DO Unavailable [phone] Johnna Valente CADD TECHNICIAN, MOBILE SERVICE RV TECHNICIAN Unavailable [phone] Marisela Chaidez APRN, MOBILE SERVICE RV TECHNICIAN Unavailable Reason for Visit * PT/OT/ST (Less Than 4 Weeks) - Closed Specialty Diagnoses / Procedures Referred By Kavon lackey Referred To Contact Rehabilitation Diagnoses Chronic bilateral low back pain with bilateral sciatica Katie Caban, MICHAEL, MOBILE SERVICE RV TECHNICIAN Phone: tel: fax: [facility]Speech [address] [place] [address] Phone: tel: fax: Referral ID Status Reason Start Date Expiration Date Visits Re quested Visits Authorized [id number] Closed 06/29/2019 1 13 Encounter Details Date Type Department Care Team (Latest Contact Info) Description 07/13/2019 1:45 PM SHEET MANUFACTURING SUPERVISOR Physical Therapy [facility] PT/OT/Speech [address] [place] [address] Katie Caban, CADD TECHNICIAN, MOBILE SERVICE RV TECHNICIAN [address] [place] [address] Paula Mohan, PT [place] Back pain (Primary Dx); Chronic bilateral low back pain with bilateral sciatica; Sacroiliac joint pain; Abnormal posture; Weakness of both hips Discharge Disposition: Discharged to home or Selfcare [...] of Care - Paula Mohan, PT - 07/13/2019 1:45 PM CST Initial Evaluation - Electronically signed by: PAULA MOHAN, PT July 13, 2019 SUBJECTIVE: Onset Date: chronic worse over last 6 months following a move Primary complaint: low back pain into the right leg. Patient Narrative: Patient report she has pain into middle of low back. States she has had pain fora long time but it has gotten worse over the past 6 months. Reports on Tuesday she was in ER for sciatica on right side and still has numbness on big toe and medial part of the foot which stays numb all the time. States the pain gets worse when laying down or when standing up and walking. She has been sleeping on the couch on her left side to support her back except when she is nursing her daughter, then she changes sides. Her daughter is 2 1/2 year old. Has a burning sensation down the outsideof the right leg. Gets that when she is up walking and standing. Worse pain is with standing. Can make it about 10 minutes before it gets bad. Gets relief with sitting down or tylenol or ibuprofen. Ibuprofen helps pain more but gives her a headache. Pain with walking as well but stairs are not bad. 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 Symptom Location: low back into right leg and foot. 1) Current pain 6/10 - Constant, described as sharp and pressure - Range 1/10 to 10/10 (worse it when she shifts positions at night and wakes her up) - Aggravating factors: standing, walking, bending - Easing factors: hot bath Patient is Right side dominant. 24 hour symptom behavior/sleep: 6-7 times a night she wakes up This patient exhibits fear avoidance behavior No Pertinent Past Medical History including: fibromyalgia, 3 natural child births, last one was 2 1/2 years ago with lots of back labor. Red flags: night pain Prior treatment attempted: none Coordination of care: Patient denies prior therapy this year for this or any other condition. Patient is not currently seeking other concurrent treatment. 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 Home environment: Lives with 3 kids in a house with laundry in the basement and has to go get dressed in the basementbecause of pain. Patient's goal for Physical Therapy: to not hurt and to get back to being able to do the things sheused to do . Patient learning style: - Barriers to learning: no barriers - Preferred learning style: demonstration - Preferred language: Upper Sorbian - Biology Research Assistant needed: No Written attendance policy reviewed: Yes Next appointment with referring provider: as needed. OBJECTIVE General: OSWESTRY LOW BACK PAIN AND DISABILITY QUESTIONNAIRE Scoring instruction: For east section the total possible score is 5. If the first statement is marked in the section score +0; if the last statement is marked, it +5. If all 10 sections are completed the score is calculated as follows: Example: 16 (total scored) 50 (total possible score) x 100 +32 % If one section is missed or not applicable, the score is calculated: 16 (total scored) 45 (total possible score) x 100= 35.5% Minimal detectable change (90% confidence): 10% points (change of less than this may be attributable to error in measurement). Interpretation of scores: 0-20%: minimal disability 21-40%: moderate disability 41-60% severe disability 61-80% crippled 81-100% usually bed bound or exaggerating symptoms. Section 1- Pain intensity (0) I have no pain at the moment (1) The pain is very mild at the moment (2) The pain is mild at the moment (3) The pain is moderate at the moment. (4) The pain is fairly severe at the moment (5) The pain is very severe at the moment (6) The pain is the worse imaginable at the moment. Score3 Section 2 - Personal care (washing, dressing ect) (0) I can look after myself normally without extra pain. (1) I can look after myself normally but it causes extra pain. (2) It is painful to look after myself and I am slow and careful. (3) I need some help but can manage most of my person care. (4) I need help every day in most aspects of self-care (5) I do not get dressed, I was with difficulty and stay in bed. Score1 Section 3- Lifting (0) I can lift heavy weights without extra pain. (1) I can lift heavy weights but it gives extra pain. (2) Pain prevents Me from lifting heavy weights off the floor, but I can manage if they are conveniently placed (e.g.on a table) (3) Pain prevents me from lifting heavy weights but I can manage light to medium weights if they are conveniently positioned. (4) I can lift very light weights (5) I can not lift or carry anything at all. Score 1 Section 4- Walking (0) Pain does not prevent me from walking any distance (1) Pain prevents me from walking more than 1 mile. (2) Pain prevents me from walking more than 1/2 mile. (3) Pain prevents me from walking more than 100 yards (4) I can only walk using a stick or crutches (5) I am in bed most of the time. Score 2 Section 5- Sitting (0) I can sit in any chair as long as I like (1) I can only sit in my favorite chair as long as I like. (2) Pain prevents me from sitting more than an hour (3) Pain prevents me from sitting more than 30 minutes. (4) Pain prevents me from sitting more than 10 minutes (5) Pain prevents me from sitting at all. Score 4 Section 6 - Standing (0) I can stand as long as I want without extra pain. (1) I can stand as long as I want but it gives me extra pain. (2) Pain prevents me from standing for more than an hour. (3) Pain prevents me from standing more than 30 minutes. (4) Pain prevents me from standing more than 10 minutes. (5) Pain prevents me from standing at all. Score 4 Section 7- Sleeping (0) My sleep is never disturbed by pain (1) My sleep is occasionally disturbed by pain. (2) Because of pain I have less than 6 hours of sleep (3) Because of pain I have less than 4 hours of sleep (4) Because of pain I have less than 2 hours of sleep (5) Pain prevents me from sleeping at all. Score 2 Section 8 - Sex life (if applicable) (0) My sex life is normal and causes no extra pain. (1) My sex life is normal but causes some extra pain. (2) My sex life is nearly normal but is very painful (3) My sex life is severely restricted by pain. (4) My sex life is nearly absent because of pain. (5) Pain prevents me from any sex life at all. Score na Section 9 -Social Life (0) My social life is normal and gives me no extra pain. (1) My social life is normal but increases the degree of pain. (2) Pain has no significant effect on my social life apart from limiting my more energetic Interests. eg sports. (3) Pain has restricted my social life and I do not go out as often. (4) Pain has restricted my social life to home. (5) I have no social life because of pain. Score 3 Section 10- Travelling (0) I can travel anywhere I want without extra pain. (1) I can travel anywhere I want but it gives me extra pain. (2) Pain is bad but I manage journeys over 2 hours. (3) Pain restricts me to journeys of less than 1 hour (4) Pain restricts me to short necessary journeys under 30 minutes. (5) Pain prevents me from travelling except to receive treatment. Score 3 Total score 23/45 Score/possible (50 if all scored) x 100 51% disability Observation: Posture: Patient stands with anterior pelvic tilt, anterior rotation of bilateral femur, relative hip flexion, increased kyphosis and forward head posture. Patient is sitting in forward flexion slump posture with increased cervicothoracic junction, rounded shoulders, abducted scapula, tight and short pectoralis, increased thoracic kyphosis, and decreased lumbar lordosis. Patient is able to correct posture with manual and verbal cues, but is only able to maintain for less than 30 seconds indicating poor postural awareness and endurance. Palpation: ASIS anterior on the right and tender to palpation, Tender to psoas on the right Decreased mobility in the thoracic spine, Tender to palpation of glut medius and glut minimus bilaterally, right greater than left. Lumbar: Range of Motion: All Range of Motion documentation below is measured in degrees unless otherwise indicated. Flexion AROM: FT to mid beltran Extension; AROM wfl Flexibility: Hamstrings Left: -30 Right: -28 Rectus Femoris Left: 102 prior to lumbar rotation Right: 98 prior to lumbar rotation Strength: Hip Flexion (L2-3): Within Functional Limits Hip Extension Left: 3 Right: 3- Hip Abduction Left: 3+ Right: 3- Hip Adduction: Within Functional Limits Hip IR: Within Functional Limits Hip ER; Within Functional Limits Knee Flexion (S2): Within Functional Limits Knee Extension (L3-4): Within Functional Limits Ankle Dorsiflexion (L4) : Within Functional Limits Hallux Extension (L5): Within Functional Limits Ankle Eversion (S1-2) : Within Functional Limits Sensory Exam: Patient sensation intact to light touch and point localization though reports a difference from side to side in L4 and L5 dermatome. TREATMENT: Other treatment notes: Patient was educated in the overall POC, the findings during the evaluation,and the goals for PT. Patient was educated in [facility] attendance policy for therapy and signed agreement to abide by the policy. Patient was in agreement with the overall POC. Patient was educated in the anatomy of the hip, spine and SIJ. Patient was educated on hip flexor tightness, glut weakness and lumbar stability and how that can lead to back pain with standing and walking. No further treatment was given this date as patients insurance does not allow for treatment on the day of evaluation. Discussed treatment plan and recommended patient come to therapy 2 times a week, however with patients work schedule she requested to just come one time a week. ASSESSMENT: Other Details: Therapy Diagnosis: low back pain, abnormal posture, weakness in hips, SIJ dysfunction Medical Diagnosis: Chronic bilateral low back pain with bilateral sciatica Shalonda Constantino is a 34 y.o. female referred to Physical Therapy with deficits noted including impairments of weakness in her hips, decreased core stability, tight hip flexors, tight hamstrings and decreased joint mobility throughout the thoracic spine leading to faulty movement patterns and pain. She has also been diagnosed with fibromyalgia which is likely contributing to her pain. She is a single mother of 3 children and is currently having difficulty with cooking, cleaning the house, carrying her daughter, going up and down steps with laundry, picking up toys and participating in social activities due to pain. Clinical impression at this time: Patient will benefit from ongoing skilled Physical Therapy intervention. Rehab potential: good. Complexities that are a barrier to service: Work schedule All charges entered today are appropriate and separate from each other. PLAN longterm goals: Goals to be achieved in 8 [...] and the patient consented to treatment. . Cosigned by Katie Caban APN, MOBILE SERVICE RV TECHNICIAN at 07/13/2019 4:50 PM SHEET MANUFACTURING SUPERVISOR T MANUFACTURING SUPERVISOR T MANUFACTURING SUPERVISOR documented in this encounter Plan of Treatment Upcoming Encounters Date Type Department Care Team (Late st Contact Info) Description 06/19/2024 8:00 AM SHEET MANUFACTURING SUPERVISOR [facility] [address] [place] [address] Gwen Calero, PAC [address] [place] [address] Discharge Disposition: Discharged to home or Selfcare 06/19/2024 9:00 AM SHEET MANUFACTURING SUPERVISOR Appointment [facility] 1 [place] [address] Gwen Calero, PAC [address] [place] [address] Discharge Disposition: Discharged to home or Selfcare 08/13/2024 9:00 AM CDT Office [facility] - Internal Medicine - [place] [address] [place] [address] Gwen Calero, PAC [address] [place] [address] documented as of this encounter Visit Diagnoses Diagnosis Back pain- Primary Backache, unspecified Chronic bilateral low back pain with bilateral sciatica Sacroiliac joint pain Disorders of sacrum Abnormal posture Weakness of both hips documented in this encounter Additional Health Concerns Assessment Noted Time PHQ-9 Depression Total Score: 0 06/29/19 20 1:22 PM SHEET MANUFACTURING SUPERVISOR documented as of this encounter Care Teams Ordnance Artificer Relationship Specialty Start Date End Date Carmen Brown MD PCP - General Family Medicine 10/28/15 06/11/21 Adam Alejo DO Gastroenterology 01/07/16 Johnna Valente APRN, MOBILE SERVICE RV TECHNICIAN Nurse Practitioner Advanced Practice Nurse 01/07/16 Marisela Chaidez, MICHAEL, MOBILE SERVICE RV TECHNICIAN Nurse Practitioner Advanced Practice Nurse 01/07/16 documented as of this encounter
--- OUTSIDE RECORDS SUMMARY | 2024-06-09 07:56 | XMS_ITS | Encounter Summary ---
Author Organization [facility] Address [address] [place] [address] Phone Care Team Providers Care Coal Briquette Machine Operator Name Role Phone Carmen Brown MD Primary Care Provider Adam Alejo DO Unavailable [phone] Johnna Valente SHERIFF'S OFFICER, PRINTER SLOTTER HELPER Unavailable Marisela Chaidez SHERIFF'S OFFICER, PRINTER SLOTTER HELPER Unavailable Encounter Details Date Type Department Care Team (Late st Contact Info) Description 06/28/2019 Telephone [facility] - [facility] - [place] [address] [place] [address] Viviane De La Rosa APRN, PRINTER SLOTTER HELPER [address] [place] [address] Social History Tobacco Use Types [...] encounter Miscellaneous Notes * Telephone Encounter - Alexandrea Gaines RMA - 06/28/2019 1:28 PM CST Attempted to notify Shalonda Constantino. No answer, left message to call back. Will need to reschedule 06/29/2019 due to provider being out of the office. ING COORDINATOR documented in this encounter Plan of Treatment Upcoming Encounters Date Type Department Care Team (Late st Contact Info) Description 06/19/2024 8:00 AM FUNDING COORDINATOR [facility] 1 [place] [address] Gwen Calero, PAC [address] [place] [address] Discharge Disposition: Discharged to home or Selfcare 06/19/2024 9:00 AM FUNDING COORDINATOR [facility] 1 [place] [address] Gwen Calero, PAC [address] [place] [address] Discharge Disposition: Discharged to home or Selfcare 08/13/2024 9:00 AM CDT Office Visit [facility] - Internal Medicine - [place] [address] [place] [id number] Gwen Calero, PAC [address] [place] [address] documented as of this encounter Visit Diagnoses Not on filedocumented in this encounter Care Teams Coal Briquette Machine Operator Relationship Specialty Start Date End Date Carmen Brown MD PCP - General Family Medicine 10/28/15 06/11/21 Adam Alejo DO Gastroenterology 01/07/16 Johnna Valente APRN, PRINTER SLOTTER HELPER Nurse Practitioner Advanced Practice Nurse 01/07/16 Marisela Chaidez, MICHAEL, PRINTER SLOTTER HELPER Nurse Practitioner Advanced Practice Nurse 01/07/16 documented as of this encounter
--- OUTSIDE RECORDS SUMMARY | 2024-06-09 07:56 | XMS_ITS | Encounter Summary ---
Author Organization [facility] Care Team Providers Care Sign Language Teacher Name Role Phone Carmen Brown MD Primary Care Provider Adam Alejo DO Unavailable [phone] Johnna Valente DISTRICT ADVISER, VAULT TELLER Unavailable Marisela Chaidez DISTRICT ADVISER, VAULT TELLER Unavailable Encounter Details Date Type Department Care Team (Latest Contact Info) Description 07/27/2019 Travel Social History Tobacco Use Types Packs/Day [...] st Contact Info) Description 06/19/2024 8:00 AM FOLDER STITCHER OPERATOR [facility] 1 [facility] [place] [address] Gwen Calero, PAC [address] [place] [address] Discharge Disposition: Discharged to home or Selfcare 06/19/2024 9:00 AM FOLDER STITCHER OPERATOR [facility] [address] [place] [address] Gwen Calero, PAC [address] [place] [address] Discharge Disposition: Discharged to home or Selfcare 08/13/2024 9:00 AM CDT [facility] - [place] [address] [place] [phone] Gwen Calero, PAC [address] [address] [place] [address] documented as of this encounter Visit Diagnoses Not on filedocumented in this encounter Additional Health Concerns Assessment Noted Time PHQ-9 Depression Total Score: 0 06/29/19 20 1:22 PM FOLDER STITCHER OPERATOR documented as of this encounter Care Teams Sign Language Teacher Relationship Specialty Start Date End Date Carmen Brown MD PCP - General Family Medicine 10/28/15 06/11/21 Adam Alejo DO Gastroenterology 01/07/16 Johnna Valente APRN, VAULT TELLER Nurse Practitioner Advanced Practice Nurse 01/07/16 Marisela Chaidez, MICHAEL, VAULT TELLER Nurse Practitioner Advanced Practice Nurse 01/07/16 documented as of this encounter
--- OUTSIDE RECORDS SUMMARY | 2024-06-09 07:56 | XMS_ITS | Encounter Summary ---
Author Organization [facility] Address [address] [facility] [place] [address] Phone Care Team Providers Care Car Racer Name Role Phone Carmen Brown MD Primary Care Provider Adam Alejo DO Unavailable [phone] Johnna Valente GARDENING SUPERVISOR, ROOFING LABORER Unavailable [phone] Marisela Chaidez GARDENING SUPERVISOR, ROOFING LABORER Unavailable Encounter Details Date Type Department Care Team (Latest Contact Info) Description 08/01/2019 12:30 PM LAW FIRM PARTNER Ancillary Procedure [facility] [address] [address] Discharge Disposition: Discharged to home or [...] st Contact Info) Description 06/19/2024 8:00 AM LAW FIRM PARTNER [facility] 1 [place] [address] Gwen Calero, PAC [address] [place] [address] Discharge Disposition: Discharged to home or Selfcare 06/19/2024 9:00 AM LAW FIRM PARTNER [facility] 1 [place] [address] Gwen Calero, PAC [address] [facility] [place] [address] Discharge Disposition: Discharged to home or Selfcare 08/13/2024 9:00 AM CDT Office Visit [facility] - Internal Medicine - [place] [address] [facility] [place] [address] Gwen Calero, PAC [address] [facility] [place] [place] [address] documented as of this encounter Procedures Procedure Name Priority Date/Time Associated Diagnosis Comments XR FOOT 3 OR MORE VIEWS RIGHT Stat with Interpretation 08/01/2019 12:34 PM LAW FIRM PARTNER Right foot pain documented in this encounter Results * XR FOOT 3 OR MORE VIEWS RIGHT (08/01/2019 12:34 PM LAW FIRM PARTNER) Anatomical Region Laterality Modality LOWER EXTREMITY, foot Right Digital Ra diography 08/01/2019 12:4 3 PM LAW FIRM PARTNER Impressions 08/01/2019 12:46 PM LAW FIRM PARTNER IMPRESSION: ??No evidence of fracture. Narrative 08/01/2019 12:46 PM LAW FIRM PARTNER EXAM DESCRIPTION: ??XR FOOT 3 OR MORE VIEWS RIGHT REASON FOR STUDY: ??Pain in right foot after injuries in the last 2 weeks. ??Pain and swelling is localized medially. TECHNIQUE: ??AP, Oblique, and Lateral Radiographs of the right foot were obtained. COMPARISON: ??01/12/2015 FINDINGS: ??There is no evidence of an acute fracture. ??No radiopaque foreign bodies are identified. ??No focal soft tissue swelling is seen. ??No significant arthritic changes are noted. THIS IS AN ELECTRONICALLY VERIFIED FINAL REPORT 08/01/2019 12:43 PM - Electronically signed by Fabio Vaca M.D. AT: AT D: ??08/01/2019 12:43 PM T: ??08/01/2019 12:43 PM Report ID: [id number] Reading Location: ??[id number] Procedure Note Fabio Vaca MD - 08/01/2019 EXAM DESCRIPTION: XR FOOT 3 OR MORE VIEWS RIGHT REASON FOR STUDY: Pain in right foot after injuries in the last 2 weeks. Pain and swelling is localized medially. TECHNIQUE: AP, Oblique, and Lateral Radiographs of the right foot were obtained. COMPARISON: 01/12/2015 FINDINGS: There is no evidence of an acute fracture. No radiopaque foreign bodies are identified. No focal soft tissue swelling is seen. No significant arthritic changes are noted. THIS IS AN ELECTRONICALLY VERIFIED FINAL REPORT 08/01/2019 12:43 PM - Electronically signed by Fabio Vaca M.D. AT: AT Report ID: [id number] Reading Location: [id number] IMPRESSION: No evidence of fracture. Erica Catalan APRN, [facility] OR DERABLES Final Result documented in this encounter Visit Diagnoses Not on filedocumented in this encounter Additional Health Concerns Assessment Noted Time PHQ-9 Depression Total Score: 0 06/29/19 20 1:22 PM LAW FIRM PARTNER documented as of this encounter Care Teams Car Racer Relationship Specialty Start Date End Date Carmen Brown MD PCP - General Family Medicine 10/28/15 06/11/21 Adam Alejo DO Gastroenterology 01/07/16 Johnna Valente APRN, ROOFING LABORER Nurse Practitioner Advanced Practice Nurse 01/07/16 Marisela Chaidez, MICHAEL, ROOFING LABORER Nurse Practitioner Advanced Practice Nurse 01/07/16 documented as of this encounter
--- OUTSIDE RECORDS SUMMARY | 2024-06-09 07:56 | XMS_ITS | Encounter Summary ---
Author Organization [facility] Address [address] [facility] [place] [address] Phone Care Team Providers Care Licensing Analyst Name Role Phone Carmen Brown MD Primary Care Provider Adam Alejo DO Unavailable [phone] Johnna Valente DESKTOP ENGINEER, SAIL REPAIRER Unavailable Marisela Chaidez DESKTOP ENGINEER, SAIL REPAIRER Unavailable Reason for Visit * Reason Comments Foot Pain right foot Encounter Details Date Type Department Care Team (Late st Contact Info) Description 08/01/2019 12:05 PM BOOM STICK WORKER Urgent Care Visit [facility] [place] [address] [place] [id number] Erica Catalan APRN, SAIL REPAIRER #[address] [place], [place] [id number] Right foot pain (Primary Dx) Discharge Disposition: Discharged to home [...] Sign Reading Time Taken Comments Blood Pressure 122/76 08/01/2019 12:13 PM BOOM STICK WORKER Pulse 88 08/01/2019 12:13 PM BOOM STICK WORKER Temperature 36.7 ??C (98 ??F) 08/01/2019 12:13 PM BOOM STICK WORKER Respiratory Rate - - Oxygen Saturation 98% 08/01/2019 12:13 PM BOOM STICK WORKER Inhaled Oxygen Concentration - - Weight - - Height - - Body Mass Index - - documented in this encounter Patient Instructions * Patient Instructions* Erica Catalan APN, [place] - 08/01/2019 12:05 PM BOOM STICK WORKER Images from the original note were not included. Plantar Fasciitis Plantar fasciitis is a painful swelling of the plantar fascia. The plantar fascia is a thick, fibrous layer of tissue that covers the bones on the bottom of your foot. It supports the foot bones in an arched position. Plantar fasciitis can happen gradually or suddenly. It usually affects one foot at a time. Heel pain can be sharp, like a knife sticking into the bottom of your foot. You may feel pain after exercising, long-distance jogging, stair climbing, long periods of standing, or after standing up. Risk factors include: non-active lifestyle, arthritis, diabetes, obesity or recent weight gain, flat foot, high arch. Wearing high heels, loose shoes, or shoes with poor arch support for long periodsof time adds to the risk. This problem is commonly found in runners and dancers. It also found in people who stand on hard surfaces for long periods of time. Foot pain from this condition is usually worse in the morning. But it often improves with walking. By the end of the day there may be a dull aching. Treatment requires short-term rest and controllingswelling. It may take up to 9 months before all symptoms go away. Rarely, a steroid injection into the foot, or surgery, may be needed. Home care ?? If you are overweight, lose weight to help healing. ?? Choose supportive shoes with good arch support and shock absorbency. Replace athletic shoes whenthey become worn out. Don???t walk or run barefoot. ?? Premade or custom-fitted shoe inserts may be helpful. Inserts made of silicone seem to be the most effective. Custom-made inserts can be provided by retail zone specialist, physical therapist, or orthopedist. ?? Premade or custom-made night splints keep the heel stretched out while you sleep. They may prevent morning pain. ?? Limit activities that stress the feet: jogging, prolonged standing or walking, contact sports, etc. ?? First thing in the morning and before sports, stretch the bottom of your feet. Gently flex your ankle so the toes move toward your knee. ?? Icing may help control heel pain. Apply an ice pack to the heel for 10 to 20 minutes as a preventive. Or ice your heel after a severe flare-up of symptoms. You may repeat this every 1 to 2 hours as needed. ?? You may use gnhw-exr-nwdhoor pain medicine to control pain, unless another medicine was prescribed. Anti-inflammatory pain medicines, such as ibuprofen or naproxen, may work better than acetaminophen. If you have chronic liver or kidney disease or ever had a stomach ulcer or gastrointestinal bleeding, talk with your healthcare provider before using these medicines. Follow-up care Follow up with your healthcare provider, or as advised. Call for an appointment if pain worsens or there is no relief after a few weeks of home treatment. Shoe inserts, a night splint, or a special boot may be required. If X-rays were taken, you will be told of any new findings that may affect your care. When to seek medical advice Call your healthcare provider right away if any of these occur: ?? Foot swelling ?? Redness or warmth with increasing pain [employer] last reviewed this educational content on 10/04/2017 ?? [id number] [employer]. [address] [place] [address]. All rights reserved. This information is not intended as a substitute for professional medical care. Always follow your healthcare professional's instructions. STICK WORKER STICK WORKER documented in this encounter Progress Notes * Lucía Kirk RMA - 08/01/2019 12:05 PM CST Shalonda Constantino complains of Foot Pain This is a new problem. The current episode started 1 to 4 weeks ago (3 weeks ago). The problem occurs constantly. The problem has been unchanged. The symptoms are aggravated by walking. Treatments tried: aleve, tylenol, ibuprofen. The treatment provided no relief. Today's Review of Systems Musculoskeletal: Foot pain, right STICK WORKER * Erica Catalan APN, SAIL REPAIRER - 08/01/2019 12:05 PM CST Subjective: Shalonda Constantino is a 34 y.o. female in the prompt care today for right foot pain and swelling that started about 3-4 weeks ago. She states that she has been having issues with her back and sciatic nerve. She states that her leg was weak and she remembers rolling the foot a couple of times. She states pain with walking and at night. Symptoms started 3-4 weeks ago Severity of symptoms is mild-moderate Associated symptoms as recorded in the ROS. Patient is currently taking over the counter tylenol for the symptoms. This has provided minimal tee relief in the symptoms. Smoker/vapes: no Past, family, and social history was reviewed. Review of Systems Musculoskeletal: Positive for arthralgias (right foot) and joint swelling (right foot). Objective: Physical Exam Vitals signs and nursing note reviewed. Musculoskeletal: Right foot: Normal range of motion. Tenderness and swelling present. No deformity or laceration. Neurological: Mental Status: She is alert. Vitals: 08/01/19 1213 BP: 122/76 BP Location: Right Arm BP Position: Sitting BP Cuff Size: Regular Pulse: 88 Temp: 98 ??F (36.7 ??C) TempSrc: Oral SpO2: 98% Xrays were obtained in clinic today. Radiology did review xrays and results were discussed with patient/patient family. Assessment and Plan See Diagnoses, Orders, Follow-up, and Instructions Shalonda was seen today for foot pain. Diagnoses and all orders for this visit: Right foot pain - XR FOOT 3 OR MORE VIEWS RIGHT - methylPREDNISolone (MEDROL) 4 MG Tablet Therapy Pack; Use as per instructions on package. Other orders - Etonogestrel-Ethinyl Estradiol (NUVARING) 0.12-0.015 MG/24HR RING; 1 Each by Vaginal route. Care as instructed on AVS If medication was prescribed it was sent to the pharmacy. Take all medication as prescribed. Do not skip a dose and take until completed. Follow up with PCP if the symptoms do not improve Go to the ER if symptoms become severe AVS from today was printed, discussed with patient/family and given to patient/family STICK WORKER documented in this encounter Plan of Treatment Upcoming Encounters Date Type Department Care Team (Late st Contact Info) Description 06/19/2024 8:00 AM BOOM STICK WORKER [facility] [address] [place] [address] Gwen Calero, PAC [address] [place] [address] Discharge Disposition: Discharged to home or Selfcare 06/19/2024 9:00 AM BOOM STICK WORKER [facility] [address] [place] [address] Gwen Calero, PAC [address] [place] [address] Discharge Disposition: Discharged to home or Selfcare 08/13/2024 9:00 AM CDT [facility] [place] [address] [place] [address] Gwen Calero, PAC [address] [place] [address] documented as of this encounter Procedures Procedure Name Priority Date/Time Associated Diagnosis Comments XR FOOT 3 OR MORE VIEWS RIGHT Stat with Interpretation 08/01/2019 12:34 PM BOOM STICK WORKER Right foot pain documented in this encounter Results * XR FOOT 3 OR MORE VIEWS RIGHT (08/01/2019 12:34 PM BOOM STICK WORKER) Anatomical Region Laterality Modality LOWER EXTREMITY, foot Right Digital Ra diography 08/01/2019 12:4 3 PM BOOM STICK WORKER Impressions 08/01/2019 12:46 PM BOOM STICK WORKER IMPRESSION: ??No evidence of fracture. Narrative 08/01/2019 12:46 PM BOOM STICK WORKER EXAM DESCRIPTION: ??XR FOOT 3 OR MORE [...] PM T: ??08/01/2019 12:43 PM Report ID: [id number] Reading Location: ??[id number] Procedure Note Fabio Vaca MD - 08/01/2019 [...] Fabio Vaca M.D. AT: AT Report ID: [id number] Reading Location: [id number] IMPRESSION: No evidence of fracture. Erica Catalan DESKTOP ENGINEER, SAIL REPAIRER IMG DIAGNOSTIC OR DERABLES Final Result documented in this encounter Visit Diagnoses Diagnosis Right foot pain- Primary Pain in limb documented in this encounter Additional Health Concerns Assessment Noted Time PHQ-9 Depression Total Score: 0 06/29/19 20 1:22 PM BOOM STICK WORKER documented as of this encounter Care Teams Licensing Analyst Relationship Specialty Start Date End Date Carmen Brown MD PCP - General Family Medicine 10/28/15 06/11/21 Adam Alejo DO Gastroenterology 01/07/16 Johnna Valente APRN, SAIL REPAIRER Nurse Practitioner Advanced Practice Nurse 01/07/16 Marisela Chaidez APRN, SAIL REPAIRER Nurse Practitioner Advanced Practice Nurse 01/07/16 documented as of this encounter
--- OUTSIDE RECORDS SUMMARY | 2024-06-09 07:56 | XMS_ITS | Encounter Summary ---
Author Organization [facility] Address [address] [place] [address] Phone Care Team Providers Care Physician In Private Practice Name Role Phone Carmen Brown MD Primary Care Provider [phone] Adam Alejo DO Unavailable [phone] Johnna Valente LABEL CUTTER, TURKEY ROLL MAKER Unavailable Marisela Chaidez LABEL CUTTER, TURKEY ROLL MAKER Unavailable Andrea Addison MD Unavailable [phone] Johnathan Pugh MD Unavailable [phone] Reason for Visit * Reason Comments Foot Pain right; has pinched n erve between L4-L5 and twisted pelvis; had x-rays done on 08/01 Encounter Details Date Type Department Care Team (Late st Contact Info) Description 08/13/2019 4:00 PM CDT Office Visit [facility] [place] [address] [place] [phone] Carmen Brown MD [address] [place] [address] Chronic midline low back pain with right-sided sciatica (Primary Dx); Right foot pain Discharge Disposition: Discharged to home or Selfcare [...] Sign Reading Time Taken Comments Blood Pressure 132/88 08/13/2019 4:02 PM CDT Pulse 81 08/13/2019 4:02 PM CDT Temperature 36.8 ??C (98.2 ??F) 08/13/2019 4:02 PM CD T Respiratory Rate 16 08/13/2019 4:02 PM CDT Oxygen Saturation 98% 08/13/2019 4:02 PM CDT Inhaled Oxygen Concentration - - Weight 80.8 kg (178 lb 3.2 oz) 08/13/2019 4:02 P M CDT Height 160 cm (5' 3 ) 08/13/2019 4:02 PM CDT Body Mass Index 31.57 08/13/2019 4:02 PM CDT documented in this encounter Progress Notes * Taylor Jiménez - 08/13/2019 4:00 PM CDT Shalonda Constantino complains of Foot Pain This is a new problem. The current episode started more than 1 month ago. The problem occurs constantly. The problem has been gradually worsening. Associated symptoms comments: Swelling. She has tried acetaminophen, NSAIDs, heat and immobilization for the symptoms. The treatment provided mild relief. Today's Review of Systems Musculoskeletal: Positive for back pain. Medication Refills: Patient reports/denies need for medication refills. Orders Pended: no Requested Prescriptions No prescriptions requested or ordered in this encounter Home Medications Medication Sig Start Date End Date Taking? Authorizing Provider Etonogestrel-Ethinyl Estradiol (NUVARING) 0.12-0.015 MG/24HR RING 1 Each by Vaginal route. Provider, MD Sam Vit-Fe Fumarate-FA ( VITAMIN PO) Take 1 Tab by mouth daily. Provider, MD Sam Medications Discontinued During This Encounter Medication Reason ??? methylPREDNISolone (MEDROL) 4 MG Tablet Therapy Pack Therapy completed I have reviewed the home medication list with the patient and have reconciled discrepancies. The list is accurate to the best of my knowledge. Smoking Status: Social History Tobacco Use ??? Smoking status: Former Smoker Last attempt to quit: 05/08/2016 Years since quittin.2 ??? Smokeless tobacco: Never Used ??? Tobacco comment: occasional smoker Substance Use Topics ??? Alcohol use: Yes Alcohol/week: 0.0 oz Comment: socially ??? Drug use: No Smoking Cessation Counseling Given: n/a Health Care Maintenance: Health Maintenance Due Topic Date Due ??? Pap Smear 2006 ??? Influenza Immunization (1) 02/04/2019 Orders Pended: n/a The following BPA's have been addressed with the patient today: Pap * Carmen Brown MD - 08/13/2019 4:00 PM CDT Subjective Chief Complaint Patient presents with ??? Foot Pain right; has pinched nerve between L4-L5 and twisted pelvis; had x-rays done on 08/01 History of Present Illness Shalonda presents here for an acute visit. She reports having had acute low back pain about 5 weeks ago. She has seen Katie physician transport assistant, in our office and apparently she was referred to physical therapy and she was advised to take Tylenol, ibuprofen and alternate heat and ice. She did that and with physical therapy and chiropractic therapy, her back pain has resolved, but even when she had the back pain, the pain was radiating down her right leg and shooting all the way to her right greattoe. When she had the back pain, she was having difficulty walking and she reports having twisted her right ankle a couple of times, so she started developing right foot pain. Subsequently, she has been to her retort unloader, who has given her injections in her right foot and she was seen in our [facility] on 08/01/2019, at which time an x-ray of her right foot showed no evidence of fracture. Even after the cortisone injection, she continues to still have a lot of pain. She has been taking ibuprofen, Aleve and Tylenol over the counter, which do not help. She apparently borrowed her friends so called muscle relaxant, which she thinks is indomethacin, which made her very high and so she wants something for her pain. IJN: [id number] ROS: RESPIRATORY: Patient denies shortness of breath, chronic cough or other respiratory problems. CARDIAC: Patient denies chest pain, chest pressure, palpitations, diaphoresis, chest pain radiating into arms or neck. PMH/PSH/FH/SH/medications/allergies/health maintenance entries were reviewed with patient and updated. Objective: Physical Exam Vitals: 08/13/19 1602 BP: 132/88 Pulse: 81 Resp: 16 Temp: 98.2 ??F (36.8 ??C) TempSrc: Temporal SpO2: 98% Weight: 178 lb 3.2 oz (80.8 kg) Height: 5' 3 (1.6 m) Body mass index is 31.57 kg/m??. Constitutional: She appears well-developed and well-nourished. No distress. HENT: Head: Atraumatic, normocephalic. Cardiovascular: Normal rate, regular rhythm, normal heart sounds and intact distal pulses. No murmur/rubs/gallops heard. Pulmonary/Chest: clear to auscultation bilaterally, no crepts or wheezes. Musculoskeletal/extremities: no pedal edema, no calf tenderness. Skin: Skin is warm and dry. Right foot examination: Mild bruising present on the dorsal aspect from recent cortisone injection. Restricted range of movements because of pain. Mild swelling present. Dorsalis pedis and posterior tibial pulses 2+. Assessment and Plan Shalonda Constantino presents here for Foot Pain (right; has pinched nerve between L4-L5 and twisted pelvis; had x-rays done on 08/01) 1. Chronic midline low back pain with right-sided sciatica - completed physical therapy - MRI L-SPINE W/O CONTRAST; Future 2. Right foot pain -start predniSONE (DELTASONE) 50 MG q.d. X 10 days -start ibuprofen (MOTRIN) 800 MG t.i.d. p.r.n. with food - MRI RIGHT FOOT WO/W CONTRAST; Future Followup: Return in about 1 month (around 09/13/2019) for symptom review. The patient understood the plan, questions were answered and AVS including the updated medication list was provided to the patient. Documentation for this visit on 08/13/2019 was completed using a template. I have seen and examinedthe patient. Everything documented was personally performed at this visit with the necessary additions, deletions and changes made as appropriate. CARMEN BROWN MD documented in this encounter Miscellaneous Notes * Addendum Note - Taylor Jiménez CMA - 08/13/2019 4:00 PM CDTAddended by: TAYLOR JIMÉNEZ on: 09/11/2019 07:56 AM Modules accepted: Orders * Addendum Note - Taylor Jiménez CMA - 08/13/2019 4:00 PM CDTAddended by: TAYLOR JIMÉNEZ on: 12/12/2019 08:07 AM Modules accepted: Orders documented in this encounter Plan of Treatment Upcoming Encounters Date Type Department Care Team (Late st Contact Info) Description 06/19/2024 8:00 AM TRANSPORTATION AID [facility] 1 [place] [address] Gwen Calero, PAC [address] [place] [address] Discharge Disposition: Discharged to home or Selfcare 06/19/2024 9:00 AM TRANSPORTATION AID [facility] 1 [place] [address] Gwen Calero, PAC [address] [place] [address] Discharge Disposition: Discharged to home or Selfcare 08/13/2024 9:00 AM CDT Office [facility] - [place] [address] [place] [phone] Gwen Calero, [facility] [address] [place] [address] documented as of this encounter Visit Diagnoses Diagnosis Chronic midline low back pain with right-sided sciatica- Primary Right foot pain Pain in limb documented in this encounter Additional Health Concerns Assessment Noted Time PHQ-9 Depression Total Score: 0 06/29/19 20 1:22 PM TRANSPORTATION AID documented as of this encounter Care Teams Physician In Private Practice Relationship Specialty Start Date End Date Carmen Brown MD PCP - General Family Medicine 10/28/15 06/11/21 Adam Alejo DO Gastroenterology 01/07/16 Johnna Valente, LABEL CUTTER, TURKEY ROLL MAKER Nurse Practitioner Advanced Practice Nurse 01/07/16 Marisela Chaidez, LABEL CUTTER, TURKEY ROLL MAKER Nurse Practitioner Advanced Practice Nurse 01/07/16 Andrea Addison MD [address] [place] [address] Consulting Physician Obstetrics & Gynecology 08/13/19 08/13/19 Johnathan Pugh MD [address] [place] [address] Obstetrics & Gynecology 08/13/19 documented as of this encounter
--- OUTSIDE RECORDS SUMMARY | 2024-06-09 07:56 | XMS_ITS | Encounter Summary ---
Author Organization [facility] Address [address] [facility] [place] [address] Phone Care Team Providers Care Needle Loom Setter Name Role Phone Carmen Brown MD Primary Care Provider Adam Alejo DO Unavailable [phone] Johnna Valente BALANCE SHEET ANALYST, SMOKE ROOM OPERATOR Unavailable Marisela Chaidez BALANCE SHEET ANALYST, SMOKE ROOM OPERATOR Unavailable Encounter Details Date Type Department Care Team (Latest Contact Info) Description 06/29/2019 1:35 PM SOCIAL WORKER Ancillary Procedure [facility] - MEDICAL IMAGING [address] [address] Discharge Disposition: Discharged to home [...] st Contact Info) Description 06/19/2024 8:00 AM SOCIAL WORKER [facility] 1 [place] [address] Gwen Calero, PAC [address] [place] [address] Discharge Disposition: Discharged to home or Selfcare 06/19/2024 9:00 AM SOCIAL WORKER [facility] 1 [place] [address] Gwen Calero, PAC [address] [place] [address] Discharge Disposition: Discharged to home or Selfcare 08/13/2024 9:00 AM CDT [facility] [place] [address] [place] [address] Gwen Calero, PAC [address] [place] [address] documented as of this encounter Procedures Procedure Name Priority Date/Time Associated Diagnosis Comments XR LUMBAR SPINE 2 OR 3 VIEWS Routine 06/29/2019 1:52 PM SOCIAL WORKER Chronic bilateral low back pain with bilateral sciatica documented in this encounter Results * XR LUMBAR SPINE 2 OR 3 VIEWS (06/29/2019 1:52 PM SOCIAL WORKER) Anatomical Region Laterality Modality Spine, L-spine N/A Digital Radiogra phy 07/02/2019 1:57 PM SOCIAL WORKER Impressions 07/02/2019 2:00 PM SOCIAL WORKER IMPRESSION: ??Normal lumbar spine. Narrative 07/02/2019 2:00 PM SOCIAL WORKER EXAM DESCRIPTION: ??XR LUMBAR SPINE 2 OR 3 VIEWS REASON FOR STUDY: ??Left-sided lumbago with sciatica. ??Pain worse in the past 6 months. ??No known injury. TECHNIQUE: ??3 radiographic views acquired of the lumbar spine. COMPARISON: ??02/05/2019 FINDINGS: ?? SEGMENTATION: Normal. ??No transitional anatomy. ALIGNMENT: Normal. VERTEBRAE: Vertebral bodies are normal in height without compression fractures. ??No suspicious lytic or blastic lesions noted.No appreciable abnormalities identified in the posterior elements. DISCS: Intervertebral disc spaces appear well preserved. OTHER: No other significant finding. THIS IS AN ELECTRONICALLY VERIFIED FINAL REPORT 07/02/2019 1:57 PM - Electronically signed by Doni Nair M.D. RL: LM D: ??07/02/2019 1:57 PM T: ??07/02/2019 1:57 PM Report ID: [id number] Reading Location: ??[id number] Procedure Note Doni Nair MD - 07/02/2019 EXAM DESCRIPTION: XR LUMBAR SPINE 2 OR 3 VIEWS REASON FOR STUDY: Left-sided lumbago with sciatica. Pain worse in the past 6 months. No known injury. TECHNIQUE: 3 radiographic views acquired of the lumbar spine. COMPARISON: 02/05/2019 FINDINGS: SEGMENTATION: Normal. No transitional anatomy. ALIGNMENT: Normal. VERTEBRAE: Vertebral bodies are normal in height without compression fractures. No suspicious lytic or blastic lesions noted.No appreciable abnormalities identified in the posterior elements. DISCS: Intervertebral disc spaces appear well preserved. OTHER: No other significant finding. THIS IS AN ELECTRONICALLY VERIFIED FINAL REPORT 07/02/2019 1:57 PM - Electronically signed by Doni Nair M.D. RL: LM Report ID: [id number] Reading Location: [id number] IMPRESSION: Normal lumbar spine. Katie Caban APRN, [place] IMG DIAGNOSTIC ORDERABL ES Final Result documented in this encounter Visit Diagnoses Not on filedocumented in this encounter Additional Health Concerns Assessment Noted Time PHQ-9 Depression Total Score: 0 06/29/19 20 1:22 PM SOCIAL WORKER documented as of this encounter Care Teams Needle Loom Setter Relationship Specialty Start Date End Date Carmen Brown MD PCP - General Family Medicine 10/28/15 06/11/21 Adam Alejo DO Gastroenterology 01/07/16 Johnna Valente APRN, SMOKE ROOM OPERATOR Nurse Practitioner Advanced Practice Nurse 01/07/16 Marisela Chaidez, MICHAEL, SMOKE ROOM OPERATOR Nurse Practitioner Advanced Practice Nurse 01/07/16 documented as of this encounter
--- OUTSIDE RECORDS SUMMARY | 2024-06-09 07:56 | XMS_ITS | Encounter Summary ---
Author Organization [facility] Care Team Providers Care Jack Spinner Name Role Phone Carmen Brown MD Primary Care Provider [phone] Adam Alejo DO Unavailable [phone] Johnna Valente NIB ASSEMBLER, WHEEL AND CASTER REPAIRER Unavailable Marisela Chaidez NIB ASSEMBLER, WHEEL AND CASTER REPAIRER Unavailable Encounter Details Date Type Department Care Team (Latest Contact Info) Description 06/29/2019 Travel Social History Tobacco Use Types Packs/Day [...] st Contact Info) Description 06/19/2024 8:00 AM YARN HAULER [facility] [place] [address] Gwen Calero, PAC [address] [place] [id number] Discharge Disposition: Discharged to home or Selfcare 06/19/2024 9:00 AM YARN HAULER [facility] [address] [place] [address] Gwen Calero, PAC [address] [place] [id number] Discharge Disposition: Discharged to home or Selfcare 08/13/2024 9:00 AM CDT Office [facility] - [facility] - [place] [address] [place] [id number] Gwen Calero, PAC [address] [place] [id number] documented as of this encounter Visit Diagnoses Not on filedocumented in this encounter Additional Health Concerns Assessment Noted Time PHQ-9 Depression Total Score: 0 06/29/19 20 1:22 PM YARN HAULER documented as of this encounter Care Teams Jack Spinner Relationship Specialty Start Date End Date Carmen Brown MD PCP - General Family Medicine 10/28/15 06/11/21 Adam Alejo DO Gastroenterology 01/07/16 Johnna Valente APRN, WHEEL AND CASTER REPAIRER Nurse Practitioner Advanced Practice Nurse 01/07/16 Marisela Chaidez, MICHAEL, WHEEL AND CASTER REPAIRER Nurse Practitioner Advanced Practice Nurse 01/07/16 documented as of this encounter
--- OUTSIDE RECORDS SUMMARY | 2024-06-09 07:56 | XMS_ITS | Encounter Summary ---
Author Organization [facility] Address [address] [place] [address] Phone Care Team Providers Care Machine Adjuster Leader Name Role Phone Carmen Brown MD Primary Care Provider [phone] Adam Alejo DO Unavailable [phone] Johnna Valente PRODUCT MARKETER, SWABBER Unavailable [phone] Marisela Chaidez APRN, SWABBER Unavailable Reason for Visit * PT/OT/ST (Less Than 4 Weeks) - Closed Specialty Diagnoses / Procedures Referred By Kavon lackey Referred To Contact Rehabilitation Diagnoses Chronic bilateral low back pain with bilateral sciatica Katie Caban, MICHAEL, SWABBER Phone: tel: fax: [facility] [address] [place] [address] Phone: tel: fax: Referral ID Status Reason Start Date Expiration Date Visits Re quested Visits Authorized [id number] Closed 06/29/2019 1 13 Encounter Details Date Type Department Care Team (Latest Contact Info) Description 07/27/2019 12:15 PM LEARNING SERVICES COORDINATOR Physical Therapy [facility]Speech [address] [place] [address] Katie Caban, PRODUCT MARKETER, SWABBER [address] [place] [address] Paula Mohan, PT [place] Discharge [...] of Care - Paula Mohan, PT - 07/27/2019 12:15 PM CST Treatment Note - Electronically signed by: PAULA MOHAN, PT July 27, 2019 SUBJECTIVE: Patient reports that she is hurting today. States that she is having back and hip pain, but the worse pain is in the ankle and big toe on the right foot which has been burning a lot over the past fewdays. Reports that the back is a 4/10 and the foot is a 10/10, reports it has been intense. Objective TREATMENT: Other treatment notes: Refer to PT OP Rehab Therapy Treatment flowsheet for details/minutes. Patient response to new home exercises provided today: patient was given clam shells with green tband and hip flexor and hamstring stretch. She was educated on the rationale for each exercise and theimportance of correct form and pain free movement. Instructed to hold exercise if she can not do without pain. Interventions provided this session: Manual therapy and therapeutic procedures Therapist provided Education and Skilled therapy by identifying substitutions during exercises withcorrection of form as well as identifying and releasing of soft tissue restrictions including identification of trigger points and dry needling to appropriate points. Patient educated on trigger point dry needling therapy, including: purpose and anticipated outcome of intervention, contraindications and precautions. Patient confirmed no known metal allergy. Patient provided written consent for trigger point dry needling intervention. Please see media tab in chart review for scanned copy of consent. Area being treated: glut medius Number of sites: 1 Patient position: lying sidelyig Needle size and number: .[id number] Patient response or change in symptom behavior: ltr and decrease in pain Any adverse response: none verbalized or observed Area being treated: glut minimus Number of sites: 2 Patient position: sidelying Needle size and number: .[id number] Patient response or change in symptom behavior: ltr and decrease in pain Any adverse response: None verbalized by patient or noted on observation Area being treated: rectus femorus Number of sites: 1 Patient position: lying supine Needle size and number: .30x60 Patient response or change in symptom behavior: ltr and reproduction of symptoms Any adverse response:none noted or reported Area being treated: multifidus Number of sites: 2 Patient position: lying prone Needle size and number: .30x60m Patient response or change in symptom behavior: ltr and decrease in pain Any adverse response: none reported or observed. ASSESSMENT: Other Details: Patient demonstrates progress as evidenced by decreased pain following treatment.. First visit since evaluation. Patient would benefit from continued skilled therapy due to the following functional limitations: difficulty cooking, cleaning the house, carrying her daughter, going up and down steps with laundry, picking up toys and participating in social activities due to pain. Skilled interventions are necessary as demonstrated by the need for: - Manual therapy to address joint and soft tissue impairments and pain - Direction of therapeutic exercise to address strength, flexibility, and ROM impairments - Neuro Muscular Re-education for body mechanics education and postural re- education as appropriate - Therapeutic activities for functional activity education/training, and in home safety recommendations as appropriate - Patient education regarding posture, ergonomics and body mechanics - Progression of home exercise program All charges entered today are appropriate and separate from each other. PLAN exterminator helper goals: Goals to be achieved in 8 [...] and the patient consented to treatment. . NING SERVICES COORDINATOR documented in this encounter Plan of Treatment Upcoming Encounters Date Type Department Care Team (Late st Contact Info) Description 06/19/2024 8:00 AM LEARNING SERVICES COORDINATOR [facility] 1 [place] [address] Gwen Calero, PAC [address] [place] [id number] Discharge Disposition: Discharged to home or Selfcare 06/19/2024 9:00 AM LEARNING SERVICES COORDINATOR [facility] 1 [place] [address] Gwen Calero, PAC [address] [place] [address] Discharge Disposition: Discharged to home or Selfcare 08/13/2024 9:00 AM CDT Office Visit [facility] - Internal Medicine - [place] [address] [place] [id number] Gwen Calero, PAC [address] [place] [address] documented as of this encounter Visit Diagnoses Not on filedocumented in this encounter Additional Health Concerns Assessment Noted Time PHQ-9 Depression Total Score: 0 06/29/19 20 1:22 PM LEARNING SERVICES COORDINATOR documented as of this encounter Care Teams Machine Adjuster Leader Relationship Specialty Start Date End Date Carmen Brown MD PCP - General Family Medicine 10/28/15 06/11/21 Adam Alejo DO Gastroenterology 01/07/16 Johnna Valente APRN, SWABBER Nurse Practitioner Advanced Practice Nurse 01/07/16 Marisela Chaidez, MICHAEL, SWABBER Nurse Practitioner Advanced Practice Nurse 01/07/16 documented as of this encounter
--- OUTSIDE RECORDS SUMMARY | 2024-06-09 07:56 | XMS_ITS | Encounter Summary ---
Author Organization [facility] Address [address] [place] [address] Phone Care Team Providers Care Piece Dye Worker Name Role Phone Carmen Brown MD Primary Care Provider [phone] Adam Alejo DO Unavailable [phone] FOREMAN, PLANT PROTECTION SUPERVISOR Unavailable Marisela Chaidez GENERAL ROAD FOREMAN, PLANT PROTECTION SUPERVISOR Unavailable Johnathan Pugh MD Unavailable [phone] Reason for Visit * Reason Comments Foot Pain Encounter Details Date Type Department Care Team (Late st Contact Info) Description 08/14/2019 10:19 AM CDT - 08/14/2019 11:22 AM CDT Emergency [facility] Emergency [address] [place] [id number] David Workman MD Neuropathic pain of foot, right Discharge Disposition: Discharged to home or Selfcare [...] Sign Reading Time Taken Comments Blood Pressure 164/96 08/14/2019 10:15 AM CDT Pulse 94 08/14/2019 10:15 AM CDT Temperature 37.1 ??C (98.7 ??F) 08/14/2019 10:15 AM C DT Respiratory Rate 18 08/14/2019 10:15 AM CDT Oxygen Saturation 98% 08/14/2019 10:15 AM CDT Inhaled Oxygen Concentration - - Weight 80.7 kg (178 lb) 08/14/2019 10:15 AM CDT Height 160 cm (5' 3 ) 08/14/2019 10:15 AM CDT Body Mass Index 31.53 08/14/2019 10:15 AM CDT documented in this encounter Discharge Instructions * Attachments The following attachments cannot be sent through Care Everywhere. * Capsaicin topical cream, lotion, solution (Kittitian) * Neuropathy, Peripheral (Kittitian) documented in this encounter Medications at Time of Discharge amitriptyline (ELAVIL) 25 MG Tablet Take 1 Tab by mouth nightly. 60 Tab 08/14/2019 09/13/2019 Etonogestrel-Ethi nyl Estradiol (NUVARING) 0.12-0.015 MG/24HR RING 1 Each by Vaginal route. 11/06/2020 ibuprofen (MOTRIN) 800 MG TabletIndications :Right foot pain Take 1 Tab by mouth every 8 hours as needed for Mild or more severe pain. 90 Tab 08/13/2019 09/05/2019 predniSONE (DELTASONE) 50 MG TabletIndications :Right foot pain Take 1 Tab by mouth daily for 7 days. Use as directed. 7 Tab 08/13/2019 08/20/2019 documented as of this encounter ED Notes * Janet Rader RN - 08/14/2019 11:21 AM CDT Patient discharged. Discharge instructions and patient educational material reviewed with patient; questions and concerns addressed; patient verbalizes understanding, using teach back. Patient was given 1 prescription. Patient discharged per ambulatory mode with a steady gait to the exit. PT declined wheelchair. Respirations even and non-labored. No signs of distress noted. * David Workman MD - 08/14/2019 10:23 AM CDT Chief Complaint Patient presents with ??? Foot Pain Shalonda Constantino is a 34 y.o. female who presents to the emergency department with complaints of right foot and great toe pain onset approximately 5-6 weeks ago. She states that she was diagnosed withsciatica that radiates into her right good and great toe. She states that she has been seen by a chiropractor, neighborhood service center director, and both Dr. Gallardo and her mid-level provider. Dr. Gallardo did see the patientyesterday (08/13/19) and prescribed her Ibuprofen 800mg and Prednisone 50mg. She states that she has also been taking NSAIDS, Tylenol and muscle relaxants. She states that she does have continued pain to the right foot primarily the great toe and the medial foot with some radiation to the lateal aspect. She states that she does have a MRI scheduled in approximately 2 weeks. She is requesting a CT scan as she states that Dr. Gallardo was concerned for ligament damage. She does not have abnormal contour or swelling to the foot. She is able to ambulate. She does have a prior medical history for depression, fibromyalgia, functional dyspepsia, IBS-D, & GERD. She is a former smoker and does consume alcohol socially. She denies any drug use. Her blood pressure in triage was 164/96. All other vitals were stable. Allergies: No Known Allergies The history is provided by the patient and medical records. No gis web developer was used. No current facility-administered medications for this encounter. Current Outpatient Medications Medication Sig Dispense Refill ??? amitriptyline (ELAVIL) 25 MG Tablet Take 1 Tab by mouth nightly. 60 Tab 0 ??? Etonogestrel-Ethinyl Estradiol (NUVARING) 0.12-0.015 MG/24HR RING 1 Each by Vaginal route. ??? ibuprofen (MOTRIN) 800 MG Tablet Take 1 Tab by mouth every 8 hours as needed for Mild or more severe pain. 90 Tab 0 ??? predniSONE (DELTASONE) 50 MG Tablet Take 1 Tab by mouth daily for 7 days. Use as directed. 7 Tab 0 No Known Allergies Past Medical History Positives Diagnosis Date ??? Depression ??? Fibromyalgia ??? Functional dyspepsia ??? GERD (gastroesophageal reflux disease) PT DENIES GERD ??? Irritable bowel syndrome with diarrhea PT DENIES Past Surgical History: Procedure Laterality Date ??? LASIK ??? TYMPANOPLASTY Left 2003 ??? UPPER GASTROINTESTINAL ENDOSCOPY N/A 01/07/2016 Procedure: EGD, PRATEEK, SMALL BOWEL BIOPSY; Surgeon: Adam Alejo DO; Location: [facility] GI [facility]; Service: Social History Socioeconomic History ??? Marital status: Single Spouse name: Not on file ??? Number of children: Not on file ??? Years of education: Not on file ??? Highest education level: Not on file Occupational History ??? Not on file Social Needs ??? Financial resource strain: Not on file ??? Food insecurity: Worry: Not on file Inability: Not on file ??? Transportation needs: Medical: Not on file Non-medical: Not on file Tobacco Use ??? Smoking status: Former Smoker Last attempt to quit: 05/08/2016 Years since quittin.2 ??? Smokeless tobacco: Never Used ??? Tobacco comment: occasional smoker Substance and Sexual Activity ??? Alcohol use: Yes Alcohol/week: 0.0 oz Comment: socially ??? Drug use: No ??? Sexual activity: Yes Partners: Male Lifestyle ??? Physical activity: Days per week: Not on file Minutes per session: Not on file ??? Stress: Not on file Relationships ??? Social connections: Talks on phone: Not on file Gets together: Not on file Attends moravian service: Not on file Active member of club or organization: Not on file Attends meetings of clubs or organizations: Not on file Relationship status: Not on file ??? Intimate partner violence: Fear of current or ex partner: Not on file Emotionally abused: Not on file Physically abused: Not on file Forced sexual activity: Not on file Other Topics Concern ??? Not on file Social History Narrative ??? Not on file BP (!) 164/96 Pulse 94 Temp 98.7 ??F (37.1 ??C) (Tympanic) Resp 18 Ht 5' 3 (1.6 m) Wt 178 lb (80.7 kg) LMP 01/15/2018 (Approximate) SpO2 98% BMI 31.53 kg/m?? Review of Systems Constitutional: Negative for chills and fever. HENT: Negative for trouble swallowing. Eyes: Negative for visual disturbance. Respiratory: Negative for cough and shortness of breath. Cardiovascular: Negative for chest pain and palpitations. Gastrointestinal: Negative for abdominal pain, nausea and vomiting. Genitourinary: Negative for dysuria, frequency and urgency. Musculoskeletal: Positive for arthralgias (right foot and great toe). Neurological: Negative for speech difficulty, weakness, numbness and headaches. All other systems reviewed and are negative. Physical Exam Constitutional: She is oriented to person, place, and time. She appears well- developed and well-nourished. No distress. Body mass index is 31.53 kg/m??. HENT: Head: Normocephalic and atraumatic. Mouth/Throat: Oropharynx is clear and moist. Face symmetric Eyes: Pupils are equal, round, and reactive to light. Conjunctivae and EOM are normal. Neck: Normal range of motion. Neck supple. Cardiovascular: Normal rate, regular rhythm, normal heart sounds and intact distal pulses. Exam reveals no gallop and no friction rub. No murmur heard. Pulmonary/Chest: Effort normal and breath sounds normal. No respiratory distress. She has no wheezes. She has no rales. Abdominal: Soft. Bowel sounds are normal. She exhibits no distension. There is no abdominal tenderness. There is no rebound and no guarding. Musculoskeletal: Normal range of motion. General: No tenderness, deformity or edema. Lymphadenopathy: She has no cervical adenopathy. Neurological: She is alert and oriented to person, place, and time. Skin: Skin is warm and dry. No rash noted. She is not diaphoretic. No erythema. No pallor. Psychiatric: She has a normal mood and affect. Her behavior is normal. Judgment and thought contentnormal. Nursing note and vitals reviewed. Procedures MDM Labs Reviewed - No data to display No orders to display Reviewed: previous chart, nursing note and vitals Consults: primary care provider (Podiatry) Clinical Impression 1. Neuropathic pain of foot, right 1030: At bedside for initial evaluation. 1100: I discussed with Dr. Gallardo, primary care provider, on the patient's case, history, lab results, physical exam findings, and current evaluations. They are aware of the patient's condition, diagnostic findings, and agree with the proposed management. 1102: I discussed with Dr. Jarrett, Tetryl Boiling Tub Operator, on the patient's case, history, lab results, physical exam findings, and current evaluations. They are aware of the patient's condition, diagnostic findings, and agree with the proposed management. The patient remained stable throughout their ED stay. My clinical impression was discussed with thepatient/caregiver. Any labs and radiology results were reviewed. Questions were addressed as completely as possible given the information available at present. The therapeutic plan was discussed, inst ructions were given and the importance of primary care follow up was stressed and encouraged. The patient/caregiver voiced understanding of the plan, indications to return, and the need for follow up. New Medications: Discharge Medication List as of 08/14/2019 11:18 AM START taking these medications Details amitriptyline (ELAVIL) 25 MG Tablet 25 mg, Oral, NIGHTLY Starting Tue08/14/2019, Normal, Disp-60 Tab, R-0 I have advised the patient to follow-up with: Carmen Brown MD #[address] [address] As needed Disposition: Discharge By signing my name below, I, Todd Beltrán , attest that this documentation has been prepared underthe direction and in the presence of Dr. David Workman MD. Electronically Signed: Vinicio العراقي. 08/14/19 5:39 PM I, Dr. Workman, personally performed the services described in this documentation. All medical recordentries made by the scribe were at my direction and in my presence. I have reviewed the chart and discharge instructions and agree that the record reflects my personal performance and is accurate andcomplete. Dr. Workman, 08/14/19 5:39 PM * Jossy Connor RN - 08/14/2019 10:17 AM CDT Patient to triage with complaints of right foot and ankle pain for the past 5 weeks. Patient statesshgaudencio was diagnosed with sciatica, and has been dealing with the foot pain ever since. Patient statesthe pain radiates up into her knee. Positive PMS noted to right lower extremity. Patient states that she was previously prescribed ibuprofen 800 mg and prednisone for the pain; patient states those medications did not help. documented in this encounter Plan of Treatment Upcoming Encounters Date Type Department Care Team (Late st Contact Info) Description 06/19/2024 8:00 AM REFRIGERATED NATIONAL TRUCK DRIVER [facility] 1 [place] [address] Gwen Calero, PAC [address] [place] [address] Discharge Disposition: Discharged to home or Selfcare 06/19/2024 9:00 AM REFRIGERATED NATIONAL TRUCK DRIVER [facility] 1 [place] [address] Gwen Calero, PAC [address] [place] [address] Discharge Disposition: Discharged to home or Selfcare 08/13/2024 9:00 AM CDT [facility] - [place] [address] [place] [id number] Gwen Calero, PAC [address] [place] [address] documented as of this encounter Visit Diagnoses Diagnosis Neuropathic pain of foot, right- Primary documented in this encounter Additional Health Concerns Assessment Noted Time PHQ-9 Depression Total Score: 0 06/29/19 20 1:22 PM REFRIGERATED NATIONAL TRUCK DRIVER documented as of this encounter Care Teams Piece Dye Worker Relationship Specialty Start Date End Date Carmen Brown MD PCP - General Family Medicine 10/28/15 06/11/21 Adam Alejo DO Gastroenterology 01/07/16 Johnna Valente APRN, PLANT PROTECTION SUPERVISOR Nurse Practitioner Advanced Practice Nurse 01/07/16 Marisela Chaidez, MICHAEL, PLANT PROTECTION SUPERVISOR Nurse Practitioner Advanced Practice Nurse 01/07/16 Johnathan Pugh MD [address] [place] [address] Obstetrics & Gynecology 08/13/19 documented as of this encounter
--- OUTSIDE RECORDS SUMMARY | 2024-06-09 07:56 | XMS_ITS | Encounter Summary ---
Author Organization [facility] Address [address] [place] [address] Phone Care Team Providers Care Latin Dance Instructor Name Role Phone Carmen Brown MD Primary Care Provider [phone] Adam Alejo DO Unavailable [phone] Johnna Valente APRN, PIANO TEACHER Unavailable [phone] Marisela Chaidez APRN, PIANO TEACHER Unavailable Andrea Addison MD Unavailable [phone] Johnathan Pugh MD Unavailable [phone] Reason for Referral * PT/OT/ST (Less Than 4 Weeks) - Closed Specialty Diagnoses / Procedures Referred By Kavon lackey Referred To Contact Rehabilitation Diagnoses Chronic bilateral low back pain with bilateral sciatica Katie Caban, ONCOLOGY SOCIAL WORK, PIANO TEACHER Phone: tel: fax: [facility] POB PT/OT/Speech [address] [place] [address] Phone: tel: fax: Referral ID Status Reason Start Date Expiration Date Visits Re quested Visits Authorized [id number] Closed 06/29/2019 1 13 Scheduling Instructions Shalonda is being referred for back pain. See below for Shalonda's current medications, allergies and problem list. Please contact patient for scheduling questions or concerns. CURRENT MEDS: Current Outpatient Medications: Vit-Fe Fumarate-FA ( VITAMIN PO), Take 1 Tab by mouth daily., Disp: , Rfl: No current facility-administered medications for this visit. ALLERGIES: No Known Allergies PROBLEM LIST: Patient Active Problem List: Gastroesophageal reflux disease Depression Term NG MACHINE OPERATOR Reason for Visit * Reason Comments Back Pain lower Encounter Details Date Type Department Care Team (Late st Contact Info) Description 06/29/2019 1:15 PM KEYING MACHINE OPERATOR Office Visit [facility] [address] [place] [id number] Katie Caban, ONCOLOGY SOCIAL WORK, PIANO TEACHER [address] [place] [address] Chronic bilateral low back pain with bilateral sciatica (Primary Dx) Discharge Disposition: Discharged to home [...] Sign Reading Time Taken Comments Blood Pressure 128/78 06/29/2019 1:12 PM KEYING MACHINE OPERATOR Pulse 78 06/29/2019 1:12 PM KEYING MACHINE OPERATOR Temperature 37 ??C (98.6 ??F) 06/29/2019 1:12 PM KEYING MACHINE OPERATOR Respiratory Rate 18 06/29/2019 1:12 PM KEYING MACHINE OPERATOR Oxygen Saturation 98% 06/29/2019 1:12 PM KEYING MACHINE OPERATOR Inhaled Oxygen Concentration - - Weight 81.2 kg (179 lb) 06/29/2019 1:12 PM KEYING MACHINE OPERATOR Height 160 cm (5' 3 ) 06/29/2019 1:12 PM KEYING MACHINE OPERATOR Body Mass Index 31.71 06/29/2019 1:12 PM KEYING MACHINE OPERATOR documented in this encounter Patient Instructions * Patient Instructions* Katie Caban APN, CNP - 06/29/2019 1:15 PM KEYING MACHINE OPERATOR Xray today Physical therapy Tylenol and Ibuprofen as needed. Alternate heat and ice (20 mins each) up to 4 x day- Follow up in one month if not improving NG MACHINE OPERATOR NG MACHINE OPERATOR documented in this encounter Progress Notes * Bev Wilson - 06/29/2019 1:15 PM CST Shalonda Constantino is a 34 y.o. female with current BMI: Body mass index is 29.23 kg/m??. Interventions discussed including: encourage daily physical activity and well- balanced diet. Shalonda Constantino, 34 y.o., female is here for Back Pain (lower) Medication Refills: Patient reports/denies need for medication refills. Orders Pended: no Requested Prescriptions No prescriptions requested or ordered in this encounter Home Medications Medication Sig Start Date End Date Taking? Authorizing Provider Vit-Fe Fumarate-FA ( VITAMIN PO) Take 1 Tab by mouth daily. Provider, MD Sam There are no discontinued medications. I have reviewed the home medication list with the patient and have reconciled discrepancies. The list is accurate to the best of my knowledge. Smoking Status: Social History Tobacco Use ??? Smoking status: Former Smoker Last attempt to quit: 05/08/2016 Years since quittin.1 ??? Smokeless tobacco: Never Used ??? Tobacco comment: occasional smoker Substance Use Topics ??? Alcohol use: Yes Alcohol/week: 0.0 oz Comment: socially ??? Drug use: No Smoking Cessation Counseling Given: no Health Care Maintenance: Health Maintenance Due Topic Date Due ??? Pap Smear 2006 ??? DTaP/Tdap/Td Immunization (2 - Td) 02/09/2017 ??? Influenza Immunization (1) 02/04/2019 Orders Pended: no The following BPA's have been addressed with the patient today:flu/pap/tdap NG MACHINE OPERATOR * Katie Caban, CAYLA, PIANO TEACHER - 06/29/2019 1:15 PM CST Subjective: Patient presents with chronic back pain. She states that she has had back pain for years but it hasworsened over the past 6 months. She states that it is going down both legs and at time she has problems walking. She denies any known injuries or accidents. She has a history of IBS with some diarrhea but it has been worsening lately. She does have a young child that she carries and lifts frequently. Review of Systems Respiratory: Negative for shortness of breath. Cardiovascular: Negative for chest pain and palpitations. Gastrointestinal: Positive for diarrhea (worsening, has hx of IBS). Negative for constipation, nausea and vomiting. Genitourinary: Negative. Musculoskeletal: Positive for back pain (low back pain and radiating down both legs. pain has been going on for some time but has worsened over past 6 months. no known injury. ). Neurological: Negative for dizziness and headaches. Psychiatric/Behavioral: Positive for dysphoric mood. The patient is nervous/anxious. Objective: Physical Exam Vitals signs and nursing note reviewed. Constitutional: Appearance: Normal appearance. She is normal weight. HENT: Head: Normocephalic and atraumatic. Neck: Musculoskeletal: Normal range of motion. Cardiovascular: Rate and Rhythm: Normal rate and regular rhythm. Pulses: Normal pulses. Heart sounds: Normal heart sounds. Pulmonary: Effort: Pulmonary effort is normal. Breath sounds: Normal breath sounds. Musculoskeletal: Normal range of motion. General: No tenderness or signs of injury. Lumbar back: She exhibits normal range of motion, no spasm and normal pulse. Right lower leg: No edema. Left lower leg: No edema. Comments: Straight leg raise on the left to about 20??. Straight leg raise on the right to about 15??. Skin: General: Skin is warm and dry. Neurological: General: No focal deficit present. Mental Status: She is alert and oriented to person, place, and time. Coordination: Coordination normal. Gait: Gait normal. Deep Tendon Reflexes: Reflexes normal. Psychiatric: Mood and Affect: Mood normal. Behavior: Behavior normal. Thought Content: Thought content normal. Judgment: Judgment normal. BP 128/78 (BP Location: Right Arm, BP Position: Sitting, BP Cuff Size: Regular) Pulse 78 Temp 98.6 ??F (37 ??C) (Oral) Resp 18 Ht 5' 3 (1.6 m) Wt 179 lb (81.2 kg) SpO2 98% BMI 31.71 kg/m?? Assessment and Plan See Diagnoses, Orders, Follow-up, and Instructions Encounter Diagnosis Name Primary? Chronic bilateral low back pain with bilateral sciatica Yes Xray today Physical therapy Tylenol and Ibuprofen as needed. Alternate heat and ice (20 mins each) up to 4 x day- Follow up in one month if not improving Documentation for this visit on 06/29/2019 was completed using a template. I have seen and examinedthe patient. Everything documented was personally performed at this visit with the necessary additions, deletions and changes made as appropriate. NG MACHINE OPERATOR documented in this encounter Miscellaneous Notes * Addendum Note - Taylor Jiménez CMA - 06/29/2019 1:15 PM CSTAddended by: TAYLOR JIMÉNEZ on: 12/27/2019 08:12 AM Modules accepted: Orders documented in this encounter Plan of Treatment Upcoming Encounters Date Type Department Care Team (Late st Contact Info) Description 06/19/2024 8:00 AM KEYING MACHINE OPERATOR [facility] [address] [place] [address] Gwen Calero, PAC [address] [place] [address] Discharge Disposition: Discharged to home or Selfcare 06/19/2024 9:00 AM KEYING MACHINE OPERATOR [facility] [address] [place] [address] Gwen Calero, PAC [address] [place] [address] Discharge Disposition: Discharged to home or Selfcare 08/13/2024 9:00 AM CDT Office Visit [facility] - [facility] - [place] [address] [place] [address] Luzmaria Caleroney Karishma, [facility] [address] [place] [address] Scheduled Referrals Name Type Priority Associated Diagnoses Order Schedule PHYSICAL THERAPY REFERRAL Outpatient Referral Less Than 4 weeks Chronic bilateral low back pain with bilateral sciatica Expected: 06/29/2019, Expires: 10/28/2019 documented as of this encounter Procedures Procedure Name Priority Date/Time Associated Diagnosis Comments XR LUMBAR SPINE 2 OR 3 VIEWS Routine 06/29/2019 1:52 PM KEYING MACHINE OPERATOR Chronic bilateral low back pain with bilateral sciatica documented in this encounter Results * XR LUMBAR SPINE 2 OR 3 VIEWS (06/29/2019 1:52 PM KEYING MACHINE OPERATOR) Anatomical Region Laterality Modality Spine, L-spine N/A Digital Radiogra phy 07/02/2019 1:57 PM KEYING MACHINE OPERATOR Impressions 07/02/2019 2:00 PM KEYING MACHINE OPERATOR IMPRESSION: ??Normal lumbar spine. Narrative 07/02/2019 2:00 PM KEYING MACHINE OPERATOR EXAM DESCRIPTION: ??XR LUMBAR SPINE 2 OR [...] PM T: ??07/02/2019 1:57 PM Report ID: [id number] Reading Location: ??[id number] Procedure Note Doni Nair MD - 07/02/2019 [...] Doni Nair M.D. RL: LM Report ID: [id number] Reading Location: [id number] IMPRESSION: Normal lumbar spine. Katie Caban APRN, CNP IMPedro DIAGNOSTIC ORDERABL ES Final Result documented in this encounter Visit Diagnoses Diagnosis Chronic bilateral low back pain with bilateral sciatica- Primary documented in this encounter Additional Health Concerns Assessment Noted Time PHQ-9 Depression Total Score: 0 06/29/19 20 1:22 PM KEYING MACHINE OPERATOR documented as of this encounter Care Teams Latin Dance Instructor Relationship Specialty Start Date End Date Carmen Brown MD PCP - General Family Medicine 10/28/15 06/11/21 Adam Alejo DO Gastroenterology 01/07/16 Johnna Valente APRN, CNP Nurse Practitioner Advanced Practice Nurse 01/07/16 Marisela Chaidez, ONCOLOGY SOCIAL WORK, PIANO TEACHER Nurse Practitioner Advanced Practice Nurse 01/07/16 Andrea Addison MD [address] [place] [address] [address] [place] [address] Consulting Physician Obstetrics & Gynecology 08/13/19 08/13/19 Johnathan Pugh MD [address] [facility] [address] [facility] [address] [place] [address] Obstetrics & Gynecology 08/13/19 documented as of this encounter
--- OUTSIDE RECORDS SUMMARY | 2024-06-09 07:56 | XMS_ITS | Encounter Summary ---
Author Organization [facility] Care Team Providers Care Secure Software Assessor Name Role Phone Carmen Brown MD Primary Care Provider Adam Alejo DO Unavailable [phone] Johnna Valente BOBBIN DOFFER, OYSTER PLANTER Unavailable [phone] Marisela Chaidez BOBBIN DOFFER, OYSTER PLANTER Unavailable Encounter Details Date Type Department Care Team (Latest Contact Info) Description 07/13/2019 Travel Social History Tobacco Use Types Packs/Day [...] st Contact Info) Description 06/19/2024 8:00 AM RIPSHEAR OPERATOR [facility] [address] [facility] [place] [address] Gwen Calero, PAC [address] [place] [address] Discharge Disposition: Discharged to home or Selfcare 06/19/2024 9:00 AM RIPSHEAR OPERATOR [facility] [address] [place] [address] Gwen Calero, PAC [address] [place] [address] Discharge Disposition: Discharged to home or Selfcare 08/13/2024 9:00 AM CDT [facility] [place] [address] [place] [id number] Gwen Calero, PAC [address] [place] [address] documented as of this encounter Visit Diagnoses Not on filedocumented in this encounter Additional Health Concerns Assessment Noted Time PHQ-9 Depression Total Score: 0 06/29/19 20 1:22 PM RIPSHEAR OPERATOR documented as of this encounter Care Teams Secure Software Assessor Relationship Specialty Start Date End Date Carmen Brown MD PCP - General Family Medicine 10/28/15 06/11/21 Adam Alejo DO Gastroenterology 01/07/16 Johnna Valente APRN, OYSTER PLANTER Nurse Practitioner Advanced Practice Nurse 01/07/16 Marisela Chaidez, MICHAEL, OYSTER PLANTER Nurse Practitioner Advanced Practice Nurse 01/07/16 documented as of this encounter
--- OUTSIDE RECORDS SUMMARY | 2024-06-09 07:56 | XMS_ITS | Encounter Summary ---
Author Organization [facility] Care Team Providers Care Trust Officer Name Role Phone Carmen Brown MD Primary Care Provider Adam Alejo DO Unavailable [phone] Johnna Valente PAINTER AIRCRAFT, COMMUNICATION INSTRUCTOR Unavailable [phone] Marisela Chaidez PAINTER AIRCRAFT, COMMUNICATION INSTRUCTOR Unavailable Encounter Details Date Type Department Care Team (Latest Contact Info) Description 08/10/2019 Travel Social History Tobacco Use Types Packs/Day [...] st Contact Info) Description 06/19/2024 8:00 AM CONTAMINATION CONSULTANT [facility] 1 [facility] [place] [address] Gwen Calero, PAC [address] [place] [address] Discharge Disposition: Discharged to home or Selfcare 06/19/2024 9:00 AM CONTAMINATION CONSULTANT [facility] [address] [place] [address] Gwen Calero, PAC [address] [place] [address] Discharge Disposition: Discharged to home or Selfcare 08/13/2024 9:00 AM CDT [facility] - [place] [address] [place] [phone] Gwen Calero, PAC [address] [facility] [place] [address] documented as of this encounter Visit Diagnoses Not on filedocumented in this encounter Additional Health Concerns Assessment Noted Time PHQ-9 Depression Total Score: 0 06/29/19 20 1:22 PM CONTAMINATION CONSULTANT documented as of this encounter Care Teams Trust Officer Relationship Specialty Start Date End Date Carmen Brown MD PCP - General Family Medicine 10/28/15 06/11/21 Adam Alejo DO Gastroenterology 01/07/16 Johnna Valente APRN, COMMUNICATION INSTRUCTOR Nurse Practitioner Advanced Practice Nurse 01/07/16 Marisela Chaidez, MICHAEL, COMMUNICATION INSTRUCTOR Nurse Practitioner Advanced Practice Nurse 01/07/16 documented as of this encounter
--- OUTSIDE RECORDS SUMMARY | 2024-06-09 07:56 | XMS_ITS | Encounter Summary ---
Author Organization [facility] Address [address] [place] [address] Phone Care Team Providers Care Shear Operator Name Role Phone Carmen Brown MD Primary Care Provider Adam Alejo DO Unavailable [phone] Johnna Valente LATHING SUPERVISOR, DYE PENETRANT TESTING TECHNICIAN Unavailable Marisela Chaidez LATHING SUPERVISOR, DYE PENETRANT TESTING TECHNICIAN Unavailable Reason for Visit * Reason Onset Date Comments Results 07/02/2019 X-ray Encounter Details Date Type Department Care Team (Late st Contact Info) Description 07/02/2019 Telephone [facility] [address] [place] [address] Katie Caban, LATHING SUPERVISOR, DYE PENETRANT TESTING TECHNICIAN [address] [place] [address] Results (X-ray) Social History Tobacco Use Types Packs/Day Years [...] encounter Miscellaneous Notes * Telephone Encounter - Maya Steinberg RN - 07/03/2019 9:32 AM WAREHOUSE TRAFFIC SUPERVISOR Phoned patient with x-ray results. Patient aware and verbalized understanding. No questions for designer writer. HOUSE TRAFFIC SUPERVISOR * Telephone Encounter - Maya Steinberg RN - 07/02/2019 3:44 PM WAREHOUSE TRAFFIC SUPERVISOR Attempted to call patient with results, no answer at this time. Left message to call back. HOUSE TRAFFIC SUPERVISOR * Telephone Encounter - Maya Steinberg RN - 07/02/2019 3:44 PM WAREHOUSE TRAFFIC SUPERVISOR ----- Message from Katie Caban APN, DYE PENETRANT TESTING TECHNICIAN sent at 07/02/2019 3:21 PM WAREHOUSE TRAFFIC SUPERVISOR ----- Normal lumbar spine HOUSE TRAFFIC SUPERVISOR documented in this encounter Plan of Treatment Upcoming Encounters Date Type Department Care Team (Late st Contact Info) Description 06/19/2024 8:00 AM WAREHOUSE TRAFFIC SUPERVISOR [facility] 1 [place] [address] Gwen Calero, PAC [address] [place] [address] Discharge Disposition: Discharged to home or Selfcare 06/19/2024 9:00 AM WAREHOUSE TRAFFIC SUPERVISOR [facility] 1 [place] [address] Gwen Calero, PAC [address] [place] [address] Discharge Disposition: Discharged to home or Selfcare 08/13/2024 9:00 AM CDT Office Visit [facility] [address] [place] [address] Gwen Calero, PAC [address] [place] [address] documented as of this encounter Visit Diagnoses Not on filedocumented in this encounter Additional Health Concerns Assessment Noted Time PHQ-9 Depression Total Score: 0 06/29/19 20 1:22 PM WAREHOUSE TRAFFIC SUPERVISOR documented as of this encounter Care Teams Shear Operator Relationship Specialty Start Date End Date Carmen Brown MD PCP - General Family Medicine 10/28/15 06/11/21 Adam Alejo DO Gastroenterology 01/07/16 Johnna Valente APRN, DYE PENETRANT TESTING TECHNICIAN Nurse Practitioner Advanced Practice Nurse 01/07/16 Marisela Chaidez APRN, DYE PENETRANT TESTING TECHNICIAN Nurse Practitioner Advanced Practice Nurse 01/07/16 documented as of this encounter
--- OUTSIDE RECORDS SUMMARY | 2024-06-09 07:56 | XMS_ITS | Encounter Summary ---
Author Organization [facility] Address [address] [place] [address] Phone Care Team Providers Care Sisal Picker Name Role Phone Carmen Brown MD Primary Care Provider [phone] Adam Alejo DO Unavailable [phone] Johnna Valente FIGHTING VEHICLE INFANTRYMAN, CORPORATE TRAVEL MANAGER Unavailable [phone] Marisela Chaidez APRN, CORPORATE TRAVEL MANAGER Unavailable Reason for Visit * PT/OT/ST (Less Than 4 Weeks) - Closed Specialty Diagnoses / Procedures Referred By Kavon lackey Referred To Contact Rehabilitation Diagnoses Chronic bilateral low back pain with bilateral sciatica Katie Caban, MICHAEL, CORPORATE TRAVEL MANAGER Phone: tel: fax: [facility] [address] [place] [address] Phone: tel: fax: Referral ID Status Reason Start Date Expiration Date Visits Re quested Visits Authorized [id number] Closed 06/29/2019 1 13 Encounter Details Date Type Department Care Team (Latest Contact Info) Description 08/10/2019 2:00 PM COMPUTER SYSTEMS DESIGNER Physical Therapy [facility] [address] [place] [address] Katie Caban, FIGHTING VEHICLE INFANTRYMAN, CORPORATE TRAVEL MANAGER [address] [place] [address] Paula Mohan, PT [place] Discharge [...] of Care - Paula Mohan, PT - 08/10/2019 2:00 PM CST Treatment Note - Electronically signed by: PAULA MOHAN, PT August 10, 2019 SUBJECTIVE: Patient reports that she has been really having lots of pain in the foot and toe. Reports that she went to the inspector screen printing and they did an injection which did nothing. Reports she also saw a chiropractor who also thinks it is coming from her back. Objective TREATMENT: Other treatment notes: Refer to PT OP Rehab Therapy Treatment flowsheet for details/minutes. Patient response to new home exercises provided today: Educated patient on the mechanics of the disc and the role of movement and position on the disc. Instructed to perform prone press up at home and to take standing rest breaks at work and perform standing extension. Educated on the importance of activities that centralize her pain. press up decreased foot pain slr with distraction decreased foot pain slr positive Flexion increased pain Manual therapy: slr with distraction through pain free range of motion with oscillations at end range, grade 2 mobilization thoracic spine, Area being treated: glut minimus Number of sites: 2 Patient position: sidelying Needle size and number: .[id number] Patient response or change in symptom behavior: ltr and reduction of leg pain Any adverse response: None verbalized by patient or noted on observation Area being treated: glut medius Number of sites: 1 Patient position: lying sidelyig Needle size and number: .[id number] Patient response or change in symptom behavior: ltr and reproduction of leg pain Any adverse response: none verbalized or observed Area being treated: multifidus Number of sites: 4 Patient position: lying prone Needle size and number: .[id number] Patient response or change in symptom behavior: ltr and reproduction of pain Any adverse response: none reported or observed. Mechanical traction: 55#/25# high low for 45sec/15sec Interventions provided this session: manual therapy, mechanical traction Therapist provided Education and Skilled therapy by identifying substitutions during exercises withcorrection of form as well as identifying and releasing of soft tissue restrictions including identification of trigger points and dry needling to appropriate points. ASSESSMENT: Other Details: Patient demonstrates progress as evidenced by decreased leg pain following traction,decreased back pain.. Patient would benefit from continued skilled therapy [...] appropriate and separate from each other. PLAN group home goals: Goals to be achieved in 8 [...] and the patient consented to treatment. . UTER SYSTEMS DESIGNER documented in this encounter Plan of Treatment Upcoming Encounters Date Type Department Care Team (Late st Contact Info) Description 06/19/2024 8:00 AM COMPUTER SYSTEMS DESIGNER [facility] 1 [place] [address] Gwen Calero, PAC [address] [place] [address] Discharge Disposition: Discharged to home or Selfcare 06/19/2024 9:00 AM COMPUTER SYSTEMS DESIGNER [facility] [address] [place] [address] Gwen Calero, PAC [address] [place] [address] Discharge Disposition: Discharged to home or Selfcare 08/13/2024 9:00 AM CDT [facility] [place] [address] [place] [phone] Gwen Calero, PAC [address] [place] [address] documented as of this encounter Visit Diagnoses Not on filedocumented in this encounter Additional Health Concerns Assessment Noted Time PHQ-9 Depression Total Score: 0 06/29/19 20 1:22 PM COMPUTER SYSTEMS DESIGNER documented as of this encounter Care Teams Sisal Picker Relationship Specialty Start Date End Date Carmen Brown MD PCP - General Family Medicine 10/28/15 06/11/21 Adam Alejo DO Gastroenterology 01/07/16 Johnna Valente APRN, CORPORATE TRAVEL MANAGER Nurse Practitioner Advanced Practice Nurse 01/07/16 Marisela Chaidez APRN, CORPORATE TRAVEL MANAGER Nurse Practitioner Advanced Practice Nurse 01/07/16 documented as of this encounter
--- OUTSIDE RECORDS SUMMARY | 2024-06-09 08:00 | XMS_ITS | Encounter Summary ---
Author Organization [facility] Healthcare Address [address] [place] [address] Care Team Providers Care Accounts Payable Administrator Name Role Phone Gwen Calero Primary Care Prov ider Encounter Details Date Type Department Care Team (Late st Contact Info) Description 03/27/2024 Telephone [facility] Gastroenterology at [address] [place] [phone] Jael Jonas MA Social History Tobacco Use Types Packs/Day Years Used Date Smoking Tobacco: Never Smokeless Tobacco: Never Alcohol Use Standard Drinks/Week Comments Yes 0 (1 standard drink = 0.6 oz pur e alcohol) Rare Personal Safety Answer Date Recorded Have you ever been in or are you currently in a harmful physical or emotional relationship or is someone making you feel afraid or unsafe? Denies 07/13/2023 Comments No Sex and Gender Information Value Date Recorded Sex Assigned at Not on file Legal Sex Female 3:43 AM POOL ATTENDANT Gender Identity Not on file Sexual Orientation Not on file documented as of this encounter Miscellaneous Notes * Telephone Encounter - Jael Jonas MA - 03/27/2024 9:33 AM CDT Patient has been scheduled for an EGD & Colonoscopy with Dr. Krishna on 07/25/2024 at 12:30 PM Last colonoscopy: never had one Family history colon cancer (if yes, relationship to pt): no Personal history colon polyps or colon cancer: no Pt on blood thinner (if yes, list medication and reason for taking): no Has pt had recent stent placement within the last year: no Pt have pacemaker/defibrillator: no Pt diabetic (if yes, insulin or oral meds): no Pt takes injections for weight loss: no Pt have kidney disease or on dialysis: no Pt on iron: no Hx of Constipation: no Mechanical Heart valve: no Instructed pt to call with any medical changes and/or medications/insurance. documented in this encounter Plan of Treatment Upcoming Encounters Date Type Department Care Team (Latest Contact Info) Description 07/25/2024 12:30 PM POOL ATTENDANT Hospital Encounter [address] [address] Yves Krishna MD [address] [place] [address] [address] [place] [address] 07/25/2024 12:30 PM POOL ATTENDANT - 07/25/2024 1:25 PM POOL ATTENDANT Surgery [address] [address] Yves Krishna MD [address] [facility] [address] [place] [address] ESOPHAGOGASTRODUODENOSCOPY Scheduled Procedures Name Priority Associated Diagnoses Date/Ti ct ESOPHAGOGASTRODUODENOSCOPY Epigastric pain Diarrhea, unspecified type 07/25/2024 12:30 PM POOL ATTENDANT COLONOSCOPY Epigastric pain Diarrhea, unspecified type 07/25/2024 12:30 PM POOL ATTENDANT documented as of this encounter Visit Diagnoses Diagnosis Epigastric pain- Primary Abdominal pain, epigastric Diarrhea, unspecified type Diarrhea- Primary Epigastric pain Abdominal pain, epigastric Epigastric pain Abdominal pain, epigastric Diarrhea, unspecified type documented in this encounter Orders Case Request Count Last Ordered Date First Orde red Date CASE REQUEST GI 1 03/27/2024 documented in this encounter Care Teams Accounts Payable Administrator Relationship Specialty Start Date End Date Gwen Calero PA PCP - General Neurosurgery 06/03/22 documented as of this encounter
--- OUTSIDE RECORDS SUMMARY | 2024-06-09 08:00 | XMS_ITS | Encounter Summary ---
Author Organization [facility] Healthcare Address [address] [place] [address] Care Team Providers Care Road Freight Firer Name Role Phone Gwen Calero Primary Care Prov ider Encounter Details Date Type Department Care Team (Late st Contact Info) Description 03/27/2024 9:35 AM CDT Lab [address] Epigastric pain; Alternating constipation and diarrhea; Abdominal bloating; Early satiety Social History Tobacco Use Types Packs/Day Years [...] on file Legal Sex Female 3:43 AM ROTARY BAR OPERATOR Gender Identity Not on file Sexual Orientation Not on file documented as of this encounter Plan of Treatment Upcoming Encounters Date Type Department Care Team (Latest Contact Info) Description 07/25/2024 12:30 PM ROTARY BAR OPERATOR Hospital Encounter [address] [address] Yves Krishna MD [address] [facility] [place] [address] 07/25/2024 12:30 PM ROTARY BAR OPERATOR - 07/25/2024 1:25 PM ROTARY BAR OPERATOR Surgery [address] [address] Yves Krishna MD [address] [place] [address] [address] [place] [address] ESOPHAGOGASTRODUODENOSCOPY Scheduled Procedures Name Priority Associated Diagnoses Date/Ti me ESOPHAGOGASTRODUODENOSCOPY Epigastric pain Diarrhea, unspecified type 07/25/2024 12:30 PM ROTARY BAR OPERATOR COLONOSCOPY Epigastric pain Diarrhea, unspecified type 07/25/2024 12:30 PM ROTARY BAR OPERATOR documented as of this encounter Procedures Procedure Name Priority Date/Time Associated Diagnosis Comments THYROID FUNCTION CASCADE Routine 03/27/2024 9:36 AM CDT Epigastric pain Alternating constipation and diarrhea Abdominal bloating Early satiety TISSUE TRANSGLUTAMINASE, IGA Routine 03/27/2024 9:36 AM CDT Epigastric pain Alternating constipation and diarrhea Abdominal bloating Early satiety CRP (ACUTE PHASE) Routine 03/27/2024 9:3 6 AM CDT Epigastric pain Alternating constipation and diarrhea Abdominal bloating Early satiety IGA Routine 03/27/2024 9:36 AM CDT Epigastric pain Alternating constipation and diarrhea Abdominal bloating Early satiety documented in this encounter Results * CRP (acute phase) (03/27/2024 9:36 AM CDT) CRP 4.4 <=10.0 mg/L Blood 03/27/2024 9:36 AM CDT 03/27/2024 10:45 AM CDT us Yves Krishna MD LAB BLOOD ORDERABLES Final Resul t [facility] ([place]) 1 [facility] [place] [address] * Thyroid Function [place] (03/27/2024 9:36 AM CDT) TSH 1.90 0.30 - 4.20 mcIUnit/mL Blood 03/27/2024 9:36 AM CDT 03/27/2024 10:45 AM CDT Yves Krishna MD LAB BLOOD ORDERABLES Final Resul t [facility] ([place]) 1 [facility] [place] [address] * IgA (03/27/2024 9:36 AM CDT) Immunoglobulin A 147 70 - 400 mg/dL Comment:Testing performed by : [facility], [address] [place] [address], [id number] Blood 03/27/2024 9:36 AM CDT 03/27/2024 2:55 PM CDT us Yves Krishna MD LAB BLOOD ORDERABLES Final Resul t Performing Organization Address [facility] Co de Phone Number [facility] ([place]) 1 [place] [address] * Tissue transglutaminase IgA (TGG-IgA Ab) (03/27/2024 9:36 AM CDT) TTG ab, IgA <0.5 <=14.9 units/mL Comment: Interpretive data Negative: <15 units/mL Positive: > or equal to 15 units/mL Current interpretive data was last revised on 2016. Testing performed by: [facility], [address] [place] [address]., [id number] Blood 03/27/2024 9:36 AM CDT 03/27/2024 2:11 PM CDT Yves Krishna MD LAB BLOOD ORDERABLES Final Resul t [facility] ([place]) 1 [facility] Department [place] [address] documented in this encounter Visit Diagnoses Diagnosis Epigastric pain Abdominal pain, epigastric Alternating constipation and diarrhea Abdominal bloating Flatulence, eructation, and gas pain Early satiety Diarrhea- Primary Epigastric pain Abdominal pain, epigastric Epigastric pain Abdominal pain, epigastric Diarrhea, unspecified type documented in this encounter Care Teams Road Freight Firer Relationship Specialty Start Date End Date Gwen Calero PA PCP - General Neurosurgery 06/03/22 documented as of this encounter
--- OUTSIDE RECORDS SUMMARY | 2024-06-09 08:00 | XMS_ITS | Encounter Summary ---
Author Organization [facility] Healthcare Address [address] [place] [address] Care Team Providers Care Product Architect Name Role Phone Gwen Calero Primary Care Prov ider Reason for Visit * Reason Comments New Patient Abdominal Pain Patient states that she will have sever abdominal pain after eating Change In Bowel Patient has had alte rnating diarrhea and constipation * Consultation (Routine) - Closed Specialty Diagnoses / Procedures Referred By Kavon lackey Referred To Contact Gastroenterology Diagnoses Irritable bowel syndrome with diarrhea Gwen Calero PA [address] [place] [address] Phone: tel: fax: [facility] Gastroenterology at [address] [place] [address] Phone: tel: fax: Referral ID Status Reason Start Date Expiration Date V isits Requested Visits Authorized [id number] Closed Specialty Services Required 12/22/2023 01/20/2025 1 1 Encounter Details Date Type Department Care Team (Latest Contact Info) Description 03/27/2024 8:30 AM CDT Office Visit [facility] Gastroenterology at [address] [place] [address] Yves Krishna MD [address] [place] [address] [address] [place] [address] Epigastric pain (Primary Dx); Alternating constipation and diarrhea; Abdominal bloating; Early satiety Social History Tobacco Use Types Packs/Day Years Used Date Smoking Tobacco: Never Smokeless Tobacco: Never Tobacco Cessation:Counseling Given: Not Answered Alcohol Use Standard Drinks/Week Comments Yes 0 [...] on file Legal Sex Female 3:43 AM CLINICAL PSYCHIATRIST Gender Identity Not on file Sexual Orientation Not on file documented as of this encounter Last Filed Vital Signs Vital Sign Reading Time Taken Comments Blood Pressure 127/85 03/27/2024 8:26 AM CDT Pulse 64 03/27/2024 8:26 AM CDT Temperature - - Respiratory Rate - - Oxygen Saturation 98% 03/27/2024 8:26 AM CDT Inhaled Oxygen Concentration - - Weight 92.1 kg (203 lb 1.6 oz) 03/27/2024 8:26 A M CDT Height 160 cm (5' 3 ) 03/27/2024 8:26 AM CDT Body Mass Index 35.98 03/27/2024 8:26 AM CDT documented in this encounter Patient Instructions * Patient Instructions* Yves Krishna MD - 03/27/2024 8:30 AM CDT We will check stool studies, blood works, and schedule EGD and colonoscopy for further work up of your abdominal pain and diarrhea Please avoid using ibuprofen and take tylenol instead Minimize alcohol and caffeine use In order to help minimize bloating, please try to incorporate these changes into your every day routine 1. Ensure you get 7-8 hours of sleep nightly 2. Get 30 min of exercise 5 days a week, a goal of 10,000 steps a day 3. Try to eliminate gum chewing, sugar free candies, sugar substitutes and carbonated beverages 4. Keep a food journal and document your symptoms on a regular basis You can try a phone adam like 'IBS diet tracker' 5. Read about the FODMAP Diet (see below for links and a short summary). Typically the things that bother people most are fructose and fructan categories of foods so try to avoid these The Low FODMAP Diet (FODMAP=Fermentable Thaqw-Ax-Wrclotreeqiqlaa and Polyols) http://www.aboutibs.org/site/treatment/ffy-blbdrl-rsdz http://www.ibsdiets.org/fodmap-diet/wfqusj-pkxb-kzoq/ FODMAPs are carbohydrates (sugars) that are found in foods. Not all carbohydrates are considered FODMAPs. The FODMAPs in the diet are: Fructose (fruits, honey, high fructose corn syrup (HFCS), etc) Lactose (dairy) Fructans (wheat, garlic, onion, inulin etc) Galactans (legumes such as beans, lentils, soybeans, etc) Polyols (sweeteners containing isomalt, mannitol, sorbitol, xylitol, stone fruits such as avocado, apricots, cherries, nectarines, peaches, plums, etc) FODMAPs are osmotic (means they pull water into the intestinal tract), may not be digested or absorbed well and could be fermented upon by bacteria in the intestinal tract when eaten in excess Symptoms of diarrhea, constipation, gas, bloating and/or cramping may occur in those who could be sensitive to the effects of FODMAPs. A low FODMAP diet may help reduce symptoms, which will limit foods high in fructose, lactose, fructans, galactans and polyols. The low FODMAP diet is often used in those with irritable bowel syndrome (IBS). The diet could be possibly used in those with similar symptoms arising from other digestive disorders such as inflammatory bowel disease. This diet will also limit fiber as some high fiber foods are also high in FODMAPs (Fiber is a component of complex carbohydrates that the body cannot digest, found in plant based foods such as beans, fruits, vegetables, whole grains, etc) Sample menu choices guide for a low FODMAP diet Breakfast Gluten-free or spelt toast with spread (sucrose sweetened, not with fructose) Cereal (e.g. oats, [place] Flakes, Rice Krispies) Tea or coffee (if you have lactose malabsorption, use lactose-free milk) Serving of suitable fruit Poached eggs and spinach Lunch Gluten-free or spelt sandwich with fillings (e.g meat, salad, cheese) Frittata Homemade soup with low FODMAP vegetables Green salad with dressing (olive oil, lemon juice) with tuna Roast pumpkin, goats cheese & quinoa salad Dinner Meat or fish with low FODMAP vegetables or salad Baked fish with vegetable quinoa Roast chicken with laura infused vegetables and brown rice Gluten free pizza base topped with jacinto tomatoes, basil, goats cheese, ham and pineapple Snacks & sweets Serving of suitable fruit Yogurt (if you have lactose malabsorption, use lactose-free yogurt) Rice cakes with feta Gluten-free biscuits Oliva crumble documented in this encounter Progress Notes * Yves Krishna MD - 03/27/2024 8:30 AM CDT Images from the original note were not included. GASTROENTEROLOGY CLINIC CONSULT PRIMARY CARE PHYSICIAN: Gwen Calero PA REFERRING PHYSICIAN: Gwen Mendez* REASON FOR REFERRAL: epigastric pain/ bloating and alternating constipation diarrhea HISTORY OF PRESENT ILLNESS: Shalonda Constantino is a 38 y.o. female with history of obesity referred to GI Clinic for evaluation ofepigastric pain/ bloating and alternating constipation diarrhea Epigastric pain and bloating worse with eating, lasting 10-30 minutes, not better after BM, no specific food triggers, worsening since her last normal EGD in 2016 Also has alternating constipation and diarrhea with diarrhea predominance. Would have loose stools for 7 days straight followed by 3-4 days of no bowel movement. No hematochezia or melena. Has significant family history IBS Denies tobacco or recreational drug use. Does drink 1-2 glasses wine 5 days a week. Takes ibuprofen as needed Takes omeprazole 40 mg in the morning fasting with some but not complete relief of her pain Labs reviewed from 07/2023 showed normal CMP, CBC CT abdomen pelvis with contrast 07/2023 showed mild fat stranding surrounding the descending colon thought to be from epiploic appendagitis. 1.6 cm ground- glass opacity in the lung likely infectious versus inflammatory Normal right upper quadrant ultrasound 02/2022 EGD from 2016 showed normal exam. Gastric and small biopsies normal No prior colonoscopy Patient Active Problem List Diagnosis Fibrositis Abnormal Pap smear of cervix Epigastric pain Alternating constipation and diarrhea Abdominal bloating Early satiety Diarrhea Past Medical History: Diagnosis Date Abnormal Pap smear of cervix Depression HX OTHER MEDICAL ; Outcome: 38W0D week 6lb(s) Male HX OTHER MEDICAL ; Outcome: 38W0D week 6lb(s) 5 oz Female Past Surgical History: Procedure Laterality Date LASIK LASIK OTHER SURGICAL HISTORY 2003 : 6 hr labor OTHER SURGICAL HISTORY 2006 : 12 hr labor OTHER SURGICAL HISTORY hole patched on ear drum VAGINAL DELIVERY 01/11/2017 Social History Social History Narrative Not on file Family History Problem Relation Age of Onset Hypertension Mother Hypertension; Thyroid disease Mother Thyroid disease; No Known Allergies Current Outpatient Medications on File Prior to Visit Medication Sig Dispense Refill omeprazole (PriLOSEC) 20 mg capsule Take 1 capsule (20 mg total) by mouth daily etonogestrel-ethinyl estradiol (NUVARING) 0.12-0.015 mg/24 hr vaginal ring INSERT 1 RING VAGINALLY DIRECTED. REMOVE AFTER 3 WEEKS & WAIT 7 DAYS BEFORE INSERTING A NEW RING (Patient not taking:Reported on 03/27/2024) 1 each 2 HYDROcodone-acetaminophen (NORCO) 5-325 mg per tablet Take 1 tablet by mouth every 6 (six) hours asneeded for pain (Patient not taking: Reported on 03/27/2024) 12 tablet 0 No current facility-administered medications on file prior to visit. PHYSICAL EXAM: BP 127/85 (BP Location: Left arm, Patient Position: Sitting) Pulse 64 Ht 160 cm (5' 3 ) Wt 92.1 kg (203 lb 1.6 oz) SpO2 98% BMI 35.98 kg/m?? Body mass index is 35.98 kg/m??. ASSESSMENT/PLAN: Diagnoses and all orders for this visit: Epigastric pain (Primary) - Calprotectin, fecal; Future - CRP (acute phase); Future - Thyroid Function [place]; Future - IgA; Future - Tissue transglutaminase IgA (TGG-IgA Ab); Future Alternating constipation and diarrhea - Calprotectin, fecal; Future - CRP (acute phase); Future - Thyroid Function [place]; Future - IgA; Future - Tissue transglutaminase IgA (TGG-IgA Ab); Future Abdominal bloating - Calprotectin, fecal; Future - CRP (acute phase); Future - Thyroid Function [place]; Future - IgA; Future - Tissue transglutaminase IgA (TGG-IgA Ab); Future Early satiety - Calprotectin, fecal; Future - CRP (acute phase); Future - Thyroid Function [place]; Future - IgA; Future - Tissue transglutaminase IgA (TGG-IgA Ab); Future Epigastric pain ddx include PUD, gastritis, GERD, functional dyspepsia Will check H pylori to rule out infection Continue omeprazole 40 mg daily Avoid NSAIDs Minimize alcohol intake Will check celiac panel, TSH, CRP and calprotectin for diarrhea work up Schedule EGD and colonoscopy Trial of low FODMAP diet Yves Krishna MD Gastroenterology 03/27/2024 5:52 PM documented in this encounter Plan of Treatment Upcoming Encounters Date Type Department Care Team (Latest Contact Info) Description 07/25/2024 12:30 PM CLINICAL PSYCHIATRIST Hospital Encounter [address] [address] Yves Krishna MD [address] [place] [address] [address] [place] [address] 07/25/2024 12:30 PM CLINICAL PSYCHIATRIST - 07/25/2024 1:25 PM CLINICAL PSYCHIATRIST Surgery [address] [address] Yves Krishna MD [address] [place] [address] [address] [place] [address] ESOPHAGOGASTRODUODENOSCOPY Scheduled Procedures Name Priority Associated Diagnoses Date/Ti la ESOPHAGOGASTRODUODENOSCOPY Epigastric pain Diarrhea, unspecified type 07/25/2024 12:30 PM CLINICAL PSYCHIATRIST COLONOSCOPY Epigastric pain Diarrhea, unspecified type 07/25/2024 12:30 PM CLINICAL PSYCHIATRIST documented as of this encounter Results * H. pylori antigen, stool Stool (04/02/2024 8:00 AM CDT) H. pylori Ag, stool Negative Negative Comment: Interpretative Data Testing performed at the [facility] using the [employer] HpSA lateral flow immunoassay that detects Helicobacter pylori antigen in feces. This test is FDA cleared and its performance characteristics have been verified by the performing laboratory. ??False negative H. pylori antigen results may occur in patients on antimicrobials, proton pump inhibitors, or bismuth preparations; if clinically indicated, testing should be repeated on a new specimen two weeks after discontinuing these treatments. Interpretative data last revised June 2020. Testing performed by: [facility], [address] [place]., [address] Stool 04/02/2024 8:00 AM CDT 04/02/2024 2:46 PM CDT Yves Krishna MD LAB MICROBIOLOGY - GENERAL ORDER JOSE Final Result Performing Organization Address [facility] Co de Phone Number [facility] ([place]) 1 [facility] [place] [address] * Calprotectin, fecal (04/02/2024 8:00 AM CDT) Calprotectin, fecal <50.0 <50.0 (Normal) mcg/g Adhikari ref Lab Comment: Test Performed by: [place] [address] Mixing Machine Tender: Alyson Gamboa Ph.D.; CLIA# [id number] Stool 04/02/2024 8:00 AM CDT 04/02/2024 11:17 AM CDT Yves Krishna MD LAB BODY FLUIDS AND STOOLS ORDER JOSE Final Result Performing Organization Address [facility] Co de Phone Number [facility] ([place]) 1 [facility] [place] [address] Adhikari ref Lab * Tissue transglutaminase IgA (TGG-IgA Ab) (03/27/2024 9:36 AM CDT) TTG ab, IgA <0.5 <=14.9 units/mL Comment: Interpretive data Negative: <15 units/mL Positive: > or equal to 15 units/mL Current interpretive data was last revised on 2016. Testing performed by: [facility], 1 [facility], [place]., [address] Blood 03/27/2024 9:36 AM CDT 03/27/2024 2:11 PM CDT Yevs Krishna MD LAB BLOOD ORDERABLES Final Resul t [facility] ([place]) 1 [facility] [place] [address] * IgA (03/27/2024 9:36 AM CDT) Immunoglobulin A 147 70 - 400 mg/dL Comment:Testing performed by : [facility], [address] [place] [address], [place]., [address] Blood 03/27/2024 9:36 AM CDT 03/27/2024 2:55 PM CDT us Yves Krishna MD LAB BLOOD ORDERABLES Final Resul t Performing Organization Address [facility]/ZIP Co de Phone Number Y[facility]ILETH SALAS ([place]) 1 [facility] [place] [address] * Thyroid Function [place] (03/27/2024 9:36 AM CDT) TSH 1.90 0.30 - 4.20 mcIUnit/mL Blood 03/27/2024 9:36 AM CDT 03/27/2024 10:45 AM CDT Yves Krishna MD LAB BLOOD ORDERABLES Final Resul t [facility] ([place]) 1 [facility] [place] [address] * CRP (acute phase) (03/27/2024 9:36 AM CDT) CRP 4.4 <=10.0 mg/L Blood 03/27/2024 9:36 AM CDT 03/27/2024 10:45 AM CDT us Yves Krishna MD LAB BLOOD ORDERABLES Final Resul t [facility] ([place]) 1 [facility] Department [place] [address] documented in this encounter Visit Diagnoses Diagnosis Epigastric pain- Primary Abdominal pain, epigastric Alternating constipation and diarrhea Abdominal bloating Flatulence, eructation, and gas pain Early satiety Diarrhea- Primary Epigastric pain Abdominal pain, epigastric Epigastric pain Abdominal pain, epigastric Diarrhea, unspecified type documented in this encounter Historical Medications * This list may reflect changes made after this encounter. omeprazole (PriLOSEC) 20 mg capsule Take 1 capsule (20 mg total) by mouth daily added in this encounter Care Teams Product Architect Relationship Specialty Start Date End Date Gwen Calero PA PCP - General Neurosurgery 06/03/22 documented as of this encounter
--- OUTSIDE RECORDS SUMMARY | 2024-06-09 08:00 | XMS_ITS | Encounter Summary ---
Author Organization [facility] Address [address] [place] [address] Care Team Providers Care Filler Shredder Name Role Phone Gwen Calero Primary Care Prov ider Encounter Details Date Type Department Care Team (Late st Contact Info) Description 03/28/2024 Telephone [facility] Gastroenterology at [address] [place] [address] Lennie Wilson Social History Tobacco Use Types Packs/Day Years [...] on file Legal Sex Female 3:43 AM OVERSEAMER Gender Identity Not on file Sexual Orientation Not on file documented as of this encounter Miscellaneous Notes * Telephone Encounter - Lennie Wilson - 03/28/2024 8:30 AM CDT Called the lab and spoke with Estefania to find out if patient was given the tools for both stool samples. Estefania stated the pt was only given the tools for the fecal calprotectin, but that if there is enough stool, they can pull from that sample to use for the H. Pylori test. Per Estefania, the sample would have to be returned within 4 hours of collection and it would need to go to the lab at the hospital to return it. Called patient and she is aware to return the sample to [facility] within 4 hours of the collection in order for both samples to be ran. * Telephone Encounter - Lennie Wilson - 03/28/2024 8:22 AM CDT Called patient to let her know that Dr. Ramires had also stool testing for H. Pylori, which can cause pain and ulcers. Patient stated the lab already sent her home with the stool test for that and she willreturn it as soon as she can. * Telephone Encounter - Lennie Wilson - 03/28/2024 8:21 AM CDT ----- Message from Yves Krishna MD sent at 03/27/2024 5:54 PM CDT ----- Please inform patient I added another stool test to check for H pylori, which is a bacteria in the stomach that can cause pain and ulcers. documented in this encounter Plan of Treatment Upcoming Encounters Date Type Department Care Team (Latest Contact Info) Description 07/25/2024 12:30 PM OVERSEAMER Hospital Encounter [address] [address] Yves Krishna MD [address] [place] [address] [place] [address] 07/25/2024 12:30 PM OVERSEAMER - 07/25/2024 1:25 PM OVERSEAMER Surgery [address] [address]Yves Franklin MD [address] [facility] [place] [address] ESOPHAGOGASTRODUODENOSCOPY Scheduled Procedures Name Priority Associated Diagnoses Date/Ti me ESOPHAGOGASTRODUODENOSCOPY Epigastric pain Diarrhea, unspecified type 07/25/2024 12:30 PM OVERSEAMER COLONOSCOPY Epigastric pain Diarrhea, unspecified type 07/25/2024 12:30 PM OVERSEAMER documented as of this encounter Visit Diagnoses Not on filedocumented in this encounter Care Teams Filler Shredder Relationship Specialty Start Date End Date Gwen Calero PA PCP - General Neurosurgery 06/03/22 documented as of this encounter
--- OUTSIDE RECORDS SUMMARY | 2024-06-09 08:00 | XMS_ITS | Referral Summary ---
Author Organization [facility] Address [address] [place] [address] Care Team Providers Care Air Sealing Technician Name Role Phone Gwen Calero Primary Care Prov ider Encounters Date Type Department Care Team Description 04/02/2024 10:47 AM CDT - 04/02/2024 11:59 PM CDT Hospital Encounter [address] [address] Epigastric pain; Alternating constipation and diarrhea; Abdominal bloating; Early satiety Discharge Disposition: Discharge to home or self care 03/28/2024 Telephone [facility] Gastroenterology at [address] [place] [address] Lennie Wilson 03/27/2024 Telephone [facility] Gastroenterology at [address] [address] Jael Jonas MA 03/27/2024 9:35 AM CDT Lab [address] Epigastric pain; Alternating constipation and diarrhea; Abdominal bloating; Early satiety 03/27/2024 8:30 AM CDT Office Visit [facility] Gastroenterology at [address] [address] Yves Krishna MD Epigastric pain (Primary Dx); Alternating constipation and diarrhea; Abdominal bloating; Early satiety from Last 3 Months Allergies No known active allergies Medications etonogestrel-et hinyl estradiol (NUVARING) 0.12-0.015 mg/24 hr vaginal ring INSERT 1 RING VAGINALLY DIRECTED. REMOVE AFTER 3 WEEKS & WAIT 7 DAYS BEFORE INSERTING A NEW RING 1 each 2 9 Active Additional Information Patient not taking.Reported on 03/27/2024 HYDROcodone-parag taminophen (NORCO) 5-325 mg per tabletIndicatio ns:Pain Take 1 tablet by mouth every 6 (six) hours as needed for pain 12 tablet 0 Active Additional Information Patient not taking.Reported on 03/27/2024 omeprazole (PriLOSEC) 20 mg capsule Take 1 capsule (20 mg total) by mouth daily Active Active Problems Problem Noted Date Diagnosed Date Epigastric pain 03/27/2024 Alternating constipation and diarrhea 03/27/2024 Abdominal bloating 03/27/2024 Early satiety 03/27/2024 Diarrhea 03/27/2024 Abnormal Pap smear of cervix 11/17/2016 Overview (11/17/2016): ASCUS with + HPV 11-16-16, declined Colpo Fibrositis 04/23/2015 Overview (09/09/2016): Fibromyalgia Resolved Problems Problem Noted Date Diagnosed Date Resolved Date Rh negative, antepartum 11/17/201608/05 Assessment & Plan (11/17/2016 10:01 AM CDT): Rhogam given on 11-02-16 History of labor 11/17/2016 Low-lying placenta 10/04/2016 8 Overview (11/17/2016): Resolved 10-12-16. Cervical length 3.0 cm Social History Tobacco Use Types Packs/Day Years [...] on file Legal Sex Female 3:43 AM UPHOLSTERER HELPER Gender Identity Not on file Sexual Orientation Not on file Last Filed Vital Signs Vital Sign Reading Time Taken Comments Blood Pressure 127/85 03/27/2024 8:26 AM CDT Pulse 64 03/27/2024 8:26 AM CDT Temperature 36.6 ??C (97.9 ??F) 07/13/2023 1:50 PM CS T Respiratory Rate 16 07/13/2023 4:59 PM UPHOLSTERER HELPER Oxygen Saturation 98% 03/27/2024 8:26 AM CDT Inhaled Oxygen Concentration - - Weight 92.1 kg (203 lb 1.6 oz) 03/27/2024 8:26 A M CDT Height 160 cm (5' 3 ) 03/27/2024 8:26 AM CDT Body Mass Index 35.98 03/27/2024 8:26 AM CDT Plan of Treatment Upcoming Encounters Date Type Department Care Team (Latest Contact Info) Description 07/25/2024 12:30 PM UPHOLSTERER HELPER Hospital Encounter [address] [address] Yves Krishna MD [address] [facility] [place] [address] 07/25/2024 12:30 PM UPHOLSTERER HELPER - 07/25/2024 1:25 PM UPHOLSTERER HELPER Surgery [address] [address]Yves Franklin MD [address] [facility] [address] [place] [address] ESOPHAGOGASTRODUODENOSCOPY Scheduled Procedures Name Priority Associated Diagnoses Date/Ti me ESOPHAGOGASTRODUODENOSCOPY Epigastric pain Diarrhea, unspecified type 07/25/2024 12:30 PM UPHOLSTERER HELPER COLONOSCOPY Epigastric pain Diarrhea, unspecified type 07/25/2024 12:30 PM UPHOLSTERER HELPER Procedures Procedure Name Priority Date/Time Associated Diagnosis Comments CALPROTECTIN, FECAL Routine 04/02/2024 8:00 AM CDT Epigastric pain Alternating constipation and diarrhea Abdominal bloating Early satiety H. PYLORI ANTIGEN, STOOL Routine 04/02/2024 8:00 AM CDT Epigastric pain CRP (ACUTE PHASE) Routine 03/27/2024 9:3 6 AM CDT Epigastric pain Alternating constipation and diarrhea Abdominal bloating Early satiety THYROID FUNCTION CASCADE Routine 03/27/2024 9:36 AM CDT Epigastric pain Alternating constipation and diarrhea Abdominal bloating Early satiety IGA Routine 03/27/2024 9:36 AM CDT Epigastric pain Alternating constipation and diarrhea Abdominal bloating Early satiety TISSUE TRANSGLUTAMINASE, IGA Routine 03/27/2024 9:36 AM CDT Epigastric pain Alternating constipation and diarrhea Abdominal bloating Early satiety PAP IG, HPV-HR Routine 06/02/2018 History of abnormal cervical Pap smear SERUM HEPATITIS C AB Routine 06/16/2016 11:15 AM UPHOLSTERER HELPER from Last 3 Months or Most Recently Relevant to Health Maintenance Results * Calprotectin, fecal (04/02/2024 8:00 AM CDT) Calprotectin, fecal <50.0 <50.0 (Normal) mcg/g [facility] Comment: Test Performed by: [place] [address] Retirement Sales Consultant: Alyson Gamboa Ph.D.; CLIA# [id number] Stool 04/02/2024 8:00 AM CDT 04/02/2024 11:17 AM CDT us Yves Krishna MD LAB BODY FLUIDS AND STOOLS ORDER JOSE Final Result [facility] ([place]) [facility] Department [place] [address] [facility] * H. pylori antigen, stool Stool (04/02/2024 8:00 AM CDT) H. pylori Ag, stool Negative Negative Comment: Interpretative Data Testing performed at the [facility] Microbiology Laboratory using the Curian HpSA lateral flow immunoassay that detects Helicobacter [...] last revised June 2020. Testing performed by: [facility], [address] [place]., [address] Stool 04/02/2024 8:00 AM CDT 04/02/2024 2:46 PM CDT Yves Krishna MD LAB MICROBIOLOGY - GENERAL ORDER JOSE Final Result Performing Organization Address City/[facility]/ZIP Co de Phone Number [facility] ([place]) 1 [facility] [place] [address] * Thyroid Function [place] (03/27/2024 9:36 AM CDT) TSH 1.90 0.30 - 4.20 mcIUnit/mL Blood 03/27/2024 9:36 AM CDT 03/27/2024 10:45 AM CDT Yves Krishna MD LAB BLOOD ORDERABLES Final Resul t Performing Organization Address City/[facility] Co de Phone Number [facility] ([place]) 1 [facility] [place] [address] * Tissue transglutaminase IgA (TGG-IgA Ab) (03/27/2024 9:36 AM CDT) TTG ab, IgA <0.5 <=14.9 units/mL Comment: Interpretive data Negative: <15 units/mL Positive: > or equal to 15 units/mL Current interpretive data was last revised on 2016. Testing performed by: [facility], [address] [place]., [address] Blood 03/27/2024 9:36 AM CDT 03/27/2024 2:11 PM CDT us Yves Krishna MD LAB BLOOD ORDERABLES Final Resul t [facility] ([place]) 1 [facility] [place] [address] * CRP (acute phase) (03/27/2024 9:36 AM CDT) CRP 4.4 <=10.0 mg/L Blood 03/27/2024 9:36 AM CDT 03/27/2024 10:45 AM CDT us Yves Krishna MD LAB BLOOD ORDERABLES Final Resul t Performing Organization Address [facility] de Phone Number [facility] ([place]) 1 [facility] [place] [address] * IgA (03/27/2024 9:36 AM CDT) Immunoglobulin A 147 70 - 400 mg/dL Comment:Testing performed by : [facility], [address] [place] [address], [address] Blood 03/27/2024 9:36 AM CDT 03/27/2024 2:55 PM CDT us Yves Krishna MD LAB BLOOD ORDERABLES Final Resul t Performing Organization Address [facility]/ZIP Co de Phone Number [facility] ([place]) 1 [facility] [place] [address] * Pap IG, HPV-hr (06/02/2018) Endocervical 06/02/2018 us Radha Sun NP LAB PATHOLOGY ORDERABLES Final Result EXTERNAL LAB * Serum Hepatitis C ab (06/16/2016 11:15 AM UPHOLSTERER HELPER) HCV ab Negative Negative CDR HISTOR ICAL RESULTS Serum 06/16/2016 11:1 5 AM UPHOLSTERER HELPER Andrea Addison MD LAB BLOOD ORDERABLES Final Result CDR HISTORICAL RESULTS from Last 3 Months or Most Recently Relevant to Health Maintenance Insurance [facility] Care Teams Air Sealing Technician Relationship Specialty Start Date End Date Gwen Calero PA PCP - General Neurosurgery 06/03/22
--- OUTSIDE RECORDS SUMMARY | 2024-06-09 08:00 | XMS_ITS | Encounter Summary ---
Author Organization [facility] Address [address] [place] [address] Care Team Providers Care Language Specialist Name Role Phone Gwen Calero Primary Care Prov ider Encounter Details Date Type Department Care Team (Latest Contact Info) Description 04/02/2024 10:47 AM CDT - 04/02/2024 11:59 PM CDT Hospital Encounter [address] [address] Epigastric pain; Alternating constipation and diarrhea; Abdominal bloating; Early satiety Discharge Disposition: Discharge to home or self care Social History Tobacco Use Types Packs/Day Years [...] on file Legal Sex Female 3:43 AM STAIN DIPPER Gender Identity Not on file Sexual Orientation Not on file documented as of this encounter Medications at Time of Discharge etonogestrel-eth inyl estradiol (NUVARING) 0.12-0.015 mg/24 hr vaginal ring INSERT 1 RING VAGINALLY DIRECTED. REMOVE AFTER 3 WEEKS & WAIT 7 DAYS BEFORE INSERTING A NEW RING 1 each 2 11/28/2018 HYDROcodone-acet aminophen (NORCO) 5-325 mg per tabletIndication s:Pain Take 1 tablet by mouth every 6 (six) hours as needed for pain 12 tablet 07/10/2019 omeprazole (PriLOSEC) 20 mg capsule Take 1 capsule (20 mg total) by mouth daily documented as of this encounter Discharge Disposition Disposition Code Departure Means Destination Discharge to home or self care documented in this encounter Plan of Treatment Upcoming Encounters Date Type Department Care Team (Latest Contact Info) Description 07/25/2024 12:30 PM STAIN DIPPER Hospital Encounter [address] [address] Yves Krishna MD [address] [facility] [place] [address] 07/25/2024 12:30 PM STAIN DIPPER - 07/25/2024 1:25 PM STAIN DIPPER Surgery [address] [address] Yves Krishna MD [address] [facility] [address] [place] [address] ESOPHAGOGASTRODUODENOSCOPY Scheduled Procedures Name Priority Associated Diagnoses Date/Ti wa ESOPHAGOGASTRODUODENOSCOPY Epigastric pain Diarrhea, unspecified type 07/25/2024 12:30 PM STAIN DIPPER COLONOSCOPY Epigastric pain Diarrhea, unspecified type 07/25/2024 12:30 PM STAIN DIPPER documented as of this encounter Procedures Procedure Name Priority Date/Time Associated Diagnosis Comments CALPROTECTIN, FECAL Routine 04/02/2024 8:00 AM CDT Epigastric pain Alternating constipation and diarrhea Abdominal bloating Early satiety H. PYLORI ANTIGEN, STOOL Routine 04/02/2024 8:00 AM CDT Epigastric pain documented in this encounter Results * Calprotectin, fecal (04/02/2024 8:00 AM CDT) Calprotectin, fecal <50.0 <50.0 (Normal) mcg/g [facility] ref [facility] Comment: Test Performed by: [facility] [address] [place] [id number] Track Repairer: Alyson Gamboa Ph.D.; CLIA# [id number] Stool 04/02/2024 8:00 AM CDT 04/02/2024 11:17 AM CDT Yves Krishna MD LAB BODY FLUIDS AND STOOLS ORDER JOSE Final Result [facility] ([place]) 1 [facility] Department [place] [address] [facility] ref [facility] * H. pylori antigen, stool Stool (04/02/2024 8:00 AM CDT) H. pylori Ag, stool Negative Negative Comment: Interpretative Data Testing performed at the [facility] Microbiology Laboratory using the AdXposeian HpSA lateral flow immunoassay that detects Helicobacter [...] last revised June 2020. Testing performed by: [facility], [address] [facility], [place]., [address] Stool 04/02/2024 8:00 AM CDT 04/02/2024 2:46 PM CDT us Yves Krishna MD LAB MICROBIOLOGY - GENERAL ORDER JOSE Final Result Performing Organization Address City/[facility]/ZIP Co de Phone Number [facility] ([place]) 1 [facility] Department [place] [address] documented in this encounter Visit Diagnoses Diagnosis Diarrhea- Primary Epigastric pain Abdominal pain, epigastric Epigastric pain Abdominal pain, epigastric Alternating constipation and diarrhea Abdominal bloating Flatulence, eructation, and gas pain Early satiety Epigastric pain Abdominal pain, epigastric Diarrhea, unspecified type documented in this encounter Care Teams Language Specialist Relationship Specialty Start Date End Date Gwen Calero PA PCP - General Neurosurgery 06/03/22 documented as of this encounter
--- OUTSIDE RECORDS SUMMARY | 2024-06-09 08:00 | XMS_ITS | Continuity of Care Document ---
Author Organization [facility] [place] Address [address] [place] [address] Assessment No assessment recorded. Plan of Treatment Reminders Order Date Submit Date Provider Last Modified By Organization Details Last Modified Time Details Appointments None recorded. Lab unlisted lab - [facility] swab plus, [facility] 2023 [facility] (Lab), [address], [place], [address], 4 14:30:34 Referral None recorded. Procedures None recorded. Surgeries None recorded. Imaging None recorded. Medication Orders metronidazo le 500 mg tablet 2023 [id number], [address], [place], [place], [id number], 4 09:47:48 Patient TargetsNo targets recorded. Patient InstructionsNo instructions recorded. Reason for Referral None Reported. Procedures Surgical History Date Name Laterality Status Provider Name and Address Organization Details Recorded Time 11/17/19 Endometrial Ablation completed Mercedes Dumont [facility] 10/27/2023 10:15:40 11/17/19 LOOP ELECTRODE EXCISION PROCEDURE, SURGICAL (LEEP) (SURG) completed Rose Burks [facility] 11/17/2022 10:10:43 10/20/19 Colposcopy completed Morenita Zuleta [facility]- [address], [place], [address], [facility] 10/21/2022 09:41:59 10/20/19 23 [facility]poscopy [facility] 11/08/2022 11:33:52 09/21/19 23 Date of Last Pap Smear completed Mercedesradha Dumont [facility] 10/19/2022 17:23:42 08/22/19 22 Colposcopy completed Morenita Zuleta, [facility]- [address], [place], [address], [place] [facility] 08/21/2021 14:39:30 08/22/19 22 Colposcopy completed Blanca Cerrato [facility] 09/18/2022 10:11:24 08/22/19 22 Colposcopy completed Annabelle Gomez [facility] 08/21/2021 15:11:41 Imaging Results None recorded. Procedure Notes None recorded. Medical Equipment None [...] Updated DateTime 04/17/2024 161.93 cm 34.9 kg/m2 23883.66 g 131 mm[Hg] 93 mm[Hg] Mercedes Dumont [facility] 4 09:46:12 Social History Question Answer Notes LastModified by Organizat ion Details LastModified Time Tobacco Smoking Status Never Smoker Annabelle Gomez kori, [facility] 07/31/2021 14:19:56 What Is Your Level [...] Anxious, Or Unable To Sleep At Night)? [id number] Information not available 07/31/2021 Do You Use [...] Diagnosis/Indication Diagnosis SNOMED-CT Code Diagnosis ICD10 Code [id number] [facility] [address] [address] 04/17/2024 09:37:17 04/17/2024 09:53:54 Vaginitis [id number] N76.0 Health Concerns Section Related Observation LastModified by Organization Detai ls LastModified Time None Recorded Concern Status LastModified by Organization Details LastModified Time None Recorded Payers Encounter Date Sequence Insurance Name Policy Number Policy Leyva Covered Member ID Leyva Member ID Guarantor Name 04/17/2024 1 [facility] (MEDICAID HMO) [id number] Shalonda Constantino [id number] Shalonda Constantino OBGyn Episode No OBEpisode recorded.
--- OUTSIDE RECORDS SUMMARY | 2024-06-09 08:00 | XMS_ITS | Clinical Summary ---
Author Organization [facility] Address [address] [place] [address] Care Team Providers Care Flour Distributor Name Role Phone Gwen Calero Primary Care Prov ider Allergies No known active allergies Medications etonogestrel-et [...] (11/17/2016): Resolved 10-12-16. Cervical length 3.0 cm Encounters Date Type Department Care Team Description 04/02/2024 10:47 AM CDT - 04/02/2024 11:59 PM CDT Hospital Encounter [address] [phone] Epigastric pain; Alternating constipation and diarrhea; Abdominal bloating; Early satiety Discharge Disposition: Discharge to home or self care 03/28/2024 Telephone [facility] Gastroenterology at [address] [place] [phone] Lennie Wilson 03/27/2024 9:35 AM CDT Lab [address] Epigastric pain; Alternating constipation and diarrhea; Abdominal bloating; Early satiety 03/27/2024 8:30 AM CDT Office Visit [facility] Gastroenterology at [address] [place] [phone] Yves Krishna MD Epigastric pain (Primary Dx); Alternating constipation and diarrhea; Abdominal bloating; Early satiety 03/27/2024 Telephone [facility] Gastroenterology at [address] [address] Jael Jonas MA from Last 3 Months Surgical History Surgery Date Site/Laterality Comments OTHER SURGICAL HISTORY 06/06/2003 - 06/05/2004 : 6 hr labor OTHER SURGICAL HISTORY 06/06/2006 - 06/05/2007 : 12 hr labor OTHER SURGICAL HISTORY hole patched on ear drum [facility] 01/11/2017 Medical History Medical History Date Comments Hx Other Medical ; Outc ome: 38W0D week 6lb(s) Male Hx Other Medical ; Outc ome: 38W0D week 6lb(s) 5 oz Female Depression Abnormal Pap smear of cervix Family History Medical History Relation Name Comments Hypertension Mother Hypertension; Thyroid disease Mother Thyroid dise ase; Relation Name Status Comments Mother Social History Tobacco Use Types Packs/Day Years [...] on file Legal Sex Female 3:43 AM PRINCIPAL AUTOMATION ENGINEER Gender Identity Not on file Sexual Orientation Not on file Obstetrics History Para Term AB IAB SAB Ectopic Multiple Livin g Live Births 3 3 3 3 3 Date Outcome GA Total Labor Labor/2nd/3rd Weight Sex Type Anes PTL Rocío A1 A5 Name Clin 09/17 Term 38w 0d 2.722 kg (6 lb) M Vag-S pont Y Livin g 07/20 Term 38w 0d 2.863 kg (6 lb 5 oz) F Vag-S pont Y Livin g 01/11 Term 39w 1d 3.317 kg (7 lb 5 oz) F Vag-S pont Epidura l Livin g AndiLy nn Last Filed Vital Signs Vital Sign Reading Time Taken Comments Blood Pressure 127/85 03/27/2024 8:26 AM CDT Pulse 64 03/27/2024 8:26 AM CDT Temperature 36.6 ??C (97.9 ??F) 07/13/2023 1:50 PM CS T Respiratory Rate 16 07/13/2023 4:59 PM PRINCIPAL AUTOMATION ENGINEER Oxygen Saturation 98% 03/27/2024 8:26 AM CDT Inhaled Oxygen Concentration - - Weight 92.1 kg (203 lb 1.6 oz) 03/27/2024 8:26 A M CDT Height 160 cm (5' 3 ) 03/27/2024 8:26 AM CDT Body Mass Index 35.98 03/27/2024 8:26 AM CDT Plan of Treatment Upcoming Encounters Date Type Department Care Team (Latest Contact Info) Description 07/25/2024 12:30 PM PRINCIPAL AUTOMATION ENGINEER Hospital Encounter [facility] [address] [place] [address] Yves Krishna MD [address] [facility] [address] [place] [address] 07/25/2024 12:30 PM PRINCIPAL AUTOMATION ENGINEER - 07/25/2024 1:25 PM PRINCIPAL AUTOMATION ENGINEER Surgery [facility] [address] [place] [address] Yves Krishna MD [address] [facility] [address] [place] [address] ESOPHAGOGASTRODUODENOSCOPY Scheduled Procedures Name Priority Associated Diagnoses Date/Ti me ESOPHAGOGASTRODUODENOSCOPY Epigastric pain Diarrhea, unspecified type 07/25/2024 12:30 PM PRINCIPAL AUTOMATION ENGINEER COLONOSCOPY Epigastric pain Diarrhea, unspecified type 07/25/2024 12:30 PM PRINCIPAL AUTOMATION ENGINEER Health Maintenance Due Date Last Done Comments Varicella Vaccines (1 of 2 - 13+ 2-dose series) 1998 Hepatitis B Screening 2003 Depression Screening 08/30/2018 08/30/2017 Regular Well Visit/Exam 18-64 08/30/2018 08/30/2017 Cervical Cancer Screening 06/02/20192017, 08/30/2017, 02/25/2017 Influenza Vaccine (#1) 2024 4, 05/29/2020, 03/24/2018 DTaP/Tdap/Td Vaccine (2 - Td or Tdap) 01/12/2027 01/12/2017 Hepatitis C Screening Completed 06/16/2016 HPV Vaccines Aged Out No longer eligi ble based on patient's age to complete this topic Pneumococcal vaccine <65 Aged Out No longer eligible based on patient's age to complete this topic Procedures Procedure Name Priority Date/Time Associated Diagnosis [...] HEPATITIS C AB Routine 06/16/2016 11:15 AM PRINCIPAL AUTOMATION ENGINEER from Last 3 Months or Most Recently Relevant to Health Maintenance Results * Calprotectin, fecal (04/02/2024 8:00 AM CDT) Calprotectin, fecal <50.0 <50.0 (Normal) mcg/g [place] [facility] Comment: Test Performed by: [place] [address] Lace Winder: Alyson Gamboa Ph.D.; CLIA# [id number] Stool 04/02/2024 8:00 AM CDT 04/02/2024 11:17 AM CDT us Yves Krishna MD LAB BODY FLUIDS AND STOOLS ORDER JOSE Final Result [facility] [place]) 1 [facility] Department [place] [address] [place] [facility] * H. pylori antigen, stool Stool (04/02/2024 8:00 AM CDT) H. pylori Ag, stool Negative Negative Comment: Interpretative Data Testing performed at the [facility] Microbiology Laboratory using the [employer] HpSA lateral flow immunoassay that detects Helicobacter [...] last revised June 2020. Testing performed by: [facility], [address] [place]., [address] Stool 04/02/2024 8:00 AM CDT 04/02/2024 2:46 PM CDT Yves Krishna MD LAB MICROBIOLOGY - GENERAL ORDER JOSE Final Result [facility] ([place]) 1 [facility] [place] [address] * Thyroid Function Stewart (03/27/2024 9:36 AM CDT) TSH 1.90 0.30 - 4.20 mcIUnit/mL Blood 03/27/2024 9:36 AM CDT 03/27/2024 10:45 AM CDT Yves Krishna MD LAB BLOOD ORDERABLES Final Resul t [facility] ([place]) [address] [place] [address] [place] [address] * Tissue transglutaminase IgA (TGG-IgA Ab) (03/27/2024 9:36 AM CDT) TTG ab, IgA <0.5 <=14.9 units/mL Comment: Interpretive data Negative: <15 units/mL Positive: > or equal to 15 units/mL Current interpretive data was last revised on 2016. Testing performed by: [facility], [address] [place] [address], [place]., [address] Blood 03/27/2024 9:36 AM CDT 03/27/2024 2:11 PM CDT us Yves Krishna MD LAB BLOOD ORDERABLES Final Resul t [facility] ([place]) [address] [place] [address] [place] [address] * CRP (acute phase) (03/27/2024 9:36 AM CDT) Pathologist [facility] CRP 4.4 <=10.0 mg/L Blood 03/27/2024 9:36 AM CDT 03/27/2024 10:45 AM CDT us Yves Krishna MD LAB BLOOD ORDERABLES Final Resul t Performing Organization Address [facility] Co de Phone Number [facility] ([place]) [address] [place] [address] [place] [address] * IgA (03/27/2024 9:36 AM CDT) Pathologist [facility] Immunoglobulin A 147 70 - 400 mg/dL Comment:Testing performed by : [facility], [address] [place] [address], [place]., [address] Blood 03/27/2024 9:36 AM CDT 03/27/2024 2:55 PM CDT us Yves Krishna MD LAB BLOOD ORDERABLES Final Resul t Performing Organization Address [facility]/ZIP Co de Phone Number [facility] ([place] [address] [place] [address] [place] [address] * Pap IG, HPV-hr (06/02/2018) Endocervical 06/02/2018 us Radha Sun NP LAB PATHOLOGY ORDERABLES Final Result EXTERNAL LAB * Serum Hepatitis C ab (06/16/2016 11:15 AM PRINCIPAL AUTOMATION ENGINEER) HCV ab Negative Negative CDR HISTOR ICAL RESULTS Serum 06/16/2016 11:1 5 AM PRINCIPAL AUTOMATION ENGINEER Andrea Addison MD LAB BLOOD ORDERABLES Final Result CDR HISTORICAL RESULTS from Last 3 Months or Most Recently Relevant to Health Maintenance Insurance [facility] Care Teams Flour Distributor Relationship Specialty Start Date End Date Gwen Calero PA PCP - General Neurosurgery 06/03/22
--- OUTSIDE RECORDS SUMMARY | 2024-06-09 08:01 | XMS_ITS | Encounter Summary ---
Author Organization [facility] Care Team Providers Care Cage/Vault Supervisor Name Role Phone Carmen Brown MD Primary Care Provider [phone] Encounter Details Date Type Department Care Team (Latest Contact Info) Description 07/10/2019 Travel Social History Tobacco Use Types Packs/Day Years Used Date Smoking Tobacco: Never Smokeless Tobacco: Never Alcohol Use Standard Drinks/Week Comments Yes 0 (1 standard drink = 0.6 oz pur e alcohol) Rare Comments No Sex and Gender Information Value Date Recorded Sex Assigned at Not on file Legal Sex Female 3:43 AM PROGRAMMABLE LOGIC CONTROLLER ASSEMBLER Gender Identity Not on file Sexual Orientation Not on file documented as of this encounter Plan of Treatment Upcoming Encounters Date Type Department Care Team (Latest Contact Info) Description 07/25/2024 12:30 PM PROGRAMMABLE LOGIC CONTROLLER ASSEMBLER Hospital Encounter [address] [address] Yves Krishna MD [address] [facility] [place] [address] 07/25/2024 12:30 PM PROGRAMMABLE LOGIC CONTROLLER ASSEMBLER - 07/25/2024 1:25 PM PROGRAMMABLE LOGIC CONTROLLER ASSEMBLER Surgery [address] [address] Yves Krishna MD [address] [facility] [place] [address] ESOPHAGOGASTRODUODENOSCOPY Scheduled Procedures Name Priority Associated Diagnoses Date/Ti de ESOPHAGOGASTRODUODENOSCOPY Epigastric pain Diarrhea, unspecified type 07/25/2024 12:30 PM PROGRAMMABLE LOGIC CONTROLLER ASSEMBLER COLONOSCOPY Epigastric pain Diarrhea, unspecified type 07/25/2024 12:30 PM PROGRAMMABLE LOGIC CONTROLLER ASSEMBLER documented as of this encounter Visit Diagnoses Not on filedocumented in this encounter Care Teams Cage/Vault Supervisor Relationship Specialty Start Date End Date Carmen Brown MD PCP - General Family Practice 11/02/16 06/02/22 documented as of this encounter
--- OUTSIDE RECORDS SUMMARY | 2024-06-09 08:01 | XMS_ITS | Encounter Summary ---
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 Phone Carmen Brown MD Primary Care Provider Reason for Visit * Reason Onset Date Comments Progesterone 12/16/2016 Encounter Details Date Type Department Care Team (Late st Contact Info) Description 12/16/2016 Telephone [employer] [address] [facility] [address] [place] [phone] Gaby Arzola MA Progesterone Social History Tobacco Use Types Packs/Day Years Used Date Smoking Tobacco: Never Comments Yes Sex and Gender Information Value Date Recorded Sex Assigned at Not on file Legal Sex 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 I contacted [facility] pharmacy and spoke with pharmacist, patient has [facility] and her insurance is denying it because the refill is early. I explained to the pharmacist that the patient has a history of labor and needs medication. Pharmacist states that she will contact [employer] to see if over ride for medication can be approved. documented in this encounter Plan of Treatment Upcoming Encounters Date Type Department Care Team (Latest Contact Info) Description 07/25/2024 12:30 PM COLLECTOR OF INTERNAL REVENUE Hospital Encounter [facility] [address] [place] [address] Yves Krishna MD [address] [facility] [address] [place] [address] 07/25/2024 12:30 PM COLLECTOR OF INTERNAL REVENUE - 07/25/2024 1:25 PM COLLECTOR OF INTERNAL REVENUE Surgery [facility] [address] [place] [address] Yves Krishna MD [address] [facility] [address] [place] [address] ESOPHAGOGASTRODUODENOSCOPY Scheduled Procedures Name Priority Associated Diagnoses Date/Ti me ESOPHAGOGASTRODUODENOSCOPY Epigastric pain Diarrhea, unspecified type 07/25/2024 12:30 PM COLLECTOR OF INTERNAL REVENUE COLONOSCOPY Epigastric pain Diarrhea, unspecified type 07/25/2024 12:30 PM COLLECTOR OF INTERNAL REVENUE documented as of this encounter Visit Diagnoses Not on filedocumented in this encounter 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
--- OUTSIDE RECORDS SUMMARY | 2024-06-09 08:01 | XMS_ITS | Encounter Summary ---
Author Organization [facility] Address [address] [place] [address] Care Team Providers Care Manager Strategic Name Role Phone Gwen Calero Primary Care Prov ider Reason for Visit * Reason Comments Abdominal Pain Encounter Details Date Type Department Care Team (Late st Contact Info) Description 07/13/2023 1:53 PM TRAINING PROJECT MANAGER - 07/13/2023 4:59 PM TRAINING PROJECT MANAGER Emergency [facility] Emergency Department [address] [place] [address] Jose Daniel Sellers MD 1 [facility] [place] [address] [place] [id number] Abdominal pain (Primary Dx); Epiploic appendagitis Discharge Disposition: Discharge to home or self [...] on file Legal Sex Female 3:43 AM TRAINING PROJECT MANAGER Gender Identity Not on file Sexual Orientation Not on file documented as of this encounter Last Filed Vital Signs Vital Sign Reading Time Taken Comments Blood Pressure 140/70 07/13/2023 4:59 PM TRAINING PROJECT MANAGER Pulse 65 07/13/2023 4:59 PM TRAINING PROJECT MANAGER Temperature 36.6 ??C (97.9 ??F) 07/13/2023 1:50 PM CS T Respiratory Rate 16 07/13/2023 4:59 PM TRAINING PROJECT MANAGER Oxygen Saturation 100% 07/13/2023 4:59 PM TRAINING PROJECT MANAGER Inhaled Oxygen Concentration - - Weight 81.6 kg (180 lb) 07/13/2023 1:50 PM TRAINING PROJECT MANAGER Height 160 cm (5' 3 ) 07/13/2023 1:50 PM TRAINING PROJECT MANAGER Body Mass Index 31.89 07/13/2023 1:50 PM TRAINING PROJECT MANAGER documented in this encounter Discharge Instructions * Discharge Instructions* Jose Daniel Sellers MD - 07/13/2023 4:48 PM TRAINING PROJECT MANAGER Can take Tylenol or ibuprofen for pain NING PROJECT MANAGER * Attachments The following attachments cannot be sent through Care Everywhere. * Abdominal Pain, Unknown Cause, (Female) (Niuean) documented in this encounter Medications at Time [...] as needed for pain 12 tablet 07/10/2019 documented as of this encounter Discharge Disposition Disposition Code Departure Means Destination Comment s Discharge to home or self care documented in this encounter ED Notes * Jose Daniel Sellers MD - 07/13/2023 4:51 PM CST HPI Chief Complaint Patient presents with Abdominal Pain 38-year-old with a history of IBS here with the complaints of left upper quadrant pain for past fewdays. She denies any nausea, vomiting. No history of fever or chills. Denies any peptic ulcer disease. Patient History: Patient Active Problem List Diagnosis Date Noted Abnormal Pap smear of cervix 11/17/2016 Fibrositis 04/23/2015 Past Medical History: Diagnosis Date Abnormal Pap [...] patched on ear drum VAGINAL DELIVERY 01/11/2017 Family History Problem Relation Age of Onset Hypertension Mother Hypertension; Thyroid disease Mother Thyroid disease; Social History Tobacco Use Smoking status: Never Smokeless tobacco: Never Substance and Sexual Activity Alcohol use: Yes Comment: Rare Drug use: No Sexual activity: Yes Partners: Male control/protection: Coitus interruptus Social History Social History Narrative Not on file Review of Systems Review of Systems Constitutional: Negative. HENT: Negative. Eyes: Negative. Respiratory: Negative. Cardiovascular: Negative. Gastrointestinal: Positive for abdominal pain. Genitourinary: Negative. Musculoskeletal: Negative. Neurological: Negative. Hematological: Negative. Psychiatric/Behavioral: Negative. Physical Exam ED Triage Vitals [07/13/23 1350] Temp Pulse Resp BP SpO2 36.6 ??C (97.9 ??F) 67 16 143/85 98 % Temp src Heart Rate Source Patient Position BP Location FiO2 (%) -- -- -- -- -- Height Height Method Weight Weight Method 1.6 m (5' 3 ) Stated 81.6 kg (180 lb) Stated Physical Exam Vitals and nursing note reviewed. Constitutional: Appearance: She is well-developed. HENT: Head: Normocephalic and atraumatic. Eyes: Extraocular Movements: Extraocular movements intact. Cardiovascular: Rate and Rhythm: Normal rate and regular rhythm. Pulmonary: Effort: Pulmonary effort is normal. Breath sounds: Normal breath sounds. Abdominal: Palpations: Abdomen is soft. Tenderness: There is abdominal tenderness in the left upper quadrant. Skin: General: Skin is warm. Neurological: Mental Status: She is alert. Results for orders placed or performed during the hospital encounter of 07/13/23 Urinalysis reflex to microscopic and culture Urine Specimen: Urine Result Value Ref Range Color, ur Straw Yellow Clarity, ur Clear Clear Specific gravity, ur 1.005 1.003 - 1.030 pH, urine 7.5 Protein, ur ql Negative Negative Glucose, ur ql Negative Negative Ketones, ur Negative Negative Bilirubin, ur Negative Negative Blood, ur Negative Negative Urobilinogen, ur <2.0 <2.0 mg/dL Nitrite, ur Negative Negative Leukocyte esterase, ur Negative Negative UA reflex comment Reflex conditions for microscopic UA and culture not met. CBC with auto differential Result Value Ref Range WBC 8.1 3.8 - 9.9 K/cumm Hgb 13.6 11.9 - 15.5 g/dL Hct 39.5 35.6 - 45.5 % Plt 258 150 - 400 K/cumm MPV 9.2 9.1 - 12.3 fL RBC 4.23 3.90 - 5.20 M/cumm MCV 93.4 81.3 - 96.4 fL MCH 32.2 27.1 - 33.3 pg MCHC 34.4 32.3 - 35.7 g/dL RDW CV 11.8 11.1 - 14.9 % RDW SD 40.3 35.7 - 48.1 fL NRBC abs 0.00 0.00 - 0.01 K/cumm Comprehensive metabolic panel Result Value Ref Range Sodium 139 135 - 145 mmol/L Potassium, pl 4.1 3.3 - 4.9 mmol/L Chloride 106 97 - 110 mmol/L CO2 24 22 - 32 mmol/L Anion gap 9 2 - 15 mmol/L BUN 9 6 - 25 mg/dL Creatinine 0.83 0.60 - 1.10 mg/dL Glucose 95 70 - 199 mg/dL Calcium 9.1 8.5 - 10.3 mg/dL Bilirubin, total 0.3 0.1 - 1.2 mg/dL Protein, pl 6.6 6.5 - 8.5 g/dL Albumin 4.1 3.5 - 5.0 g/dL Alk phos 56 40 - 130 Units/L ALT 17 7 - 45 Units/L AST 17 10 - 45 Units/L Lipase Result Value Ref Range Lipase 49 10 - 99 Units/L Differential, auto Result Value Ref Range Neutrophil abs 5.5 1.5 - 6.5 K/cumm Imm gran abs 0.0 0.0 - 0.1 K/cumm Lymphocyte abs 2.0 0.8 - 3.3 K/cumm Monocyte abs 0.5 0.2 - 0.8 K/cumm Eosinophil abs 0.1 0.0 - 0.5 K/cumm Basophil abs 0.1 0.0 - 0.1 K/cumm Neutrophil pct 67.2 % Imm gran pct 0.2 % Lymphocyte pct 24.0 % Monocyte pct 6.4 % Eosinophil pct 1.6 % Basophil pct 0.6 % eGFR Result Value Ref Range eGFR 92 mL/min/1.73 m2 EXAM DESCRIPTION: CT ABDOMEN PELVIS W CONTRAST REASON FOR STUDY: Epigastric pain TECHNIQUE: CT scan of the abdomen and pelvis performed with intravenous and without oral contrast using helical scanning technique with dynamic intravenous contrast injection. Reconstructed coronal and sagittal MPR images reviewed. All images stored on PACS. Automated exposure control was used as a dose optimization technique for this examination. CONTRAST TYPE/DOSE: 75mL of IOVERSOL 350 MG IODINE/ML INTRAVENOUS SYRINGE COMPARISON: 10/26/2015 REFERENCE: Per ACR white paper recommendations, unless otherwise specified no follow-up imaging is recommended for incidental renal and adrenal lesions per consensus recommendations based on imaging criteria. Further lab evaluation could be pursued based on clinical findings. FINDINGS: LOWER CHEST: A new 16 mm ground-glass opacity in the lingula is most likely infectious or inflammatory in etiology (series 2 image 15). Unchanged 3 mm pulmonary nodule in the left lower lobe. LIVER: Normal size. No identified cystic or solid masses. GALLBLADDER: No stones identified. No wall thickening or inflammatory changes. BILE DUCTS: No intrahepatic or extrahepatic ductal dilatation. SPLEEN: Normal size. No focal lesions. PANCREAS: No identified cystic or solid masses. No significant calcifications. No adjacent inflammation or peripancreatic fluid collections. Pancreatic duct not dilated. ADRENALS: Normal. KIDNEYS/URINARY TRACT: No identified significant cystic or solid masses. No visualized stones. No hydronephrosis or hydroureter. Symmetric enhancement. Urinary bladder is unremarkable. GI: No dilated bowel loops. No obvious wall thickening. Normal appendix. There is minimal sigmoid diverticulosis without evidence of acute diverticulitis. There is mild fat stranding surrounding the descending colon (series 2, image 79). There is no adjacent colon diverticula. This finding represents epiploic appendagitis. PERITONEUM: No ascites or free air. Left epiploic appendagitis. RETROPERITONEUM: No mass or adenopathy. REPRODUCTIVE: Uterus is present. There are bilateral adnexal follicles. VASCULATURE: No abdominal aortic aneurysm. MUSCULOSKELETAL: No significant abnormality. OTHER: No other abnormality. IMPRESSION: 1. Acute epiploic appendagitis along the mid descending colon. 2. A new 1.6 cm groundglass opacity in the lingula is most likely infectious or inflammatory in etiology. Recent guidelines by the Fleischner Society (Radiology 671259,2017) divides patient into low vs. high risk (for example, patients who smoke are considered high risk) and provides followup recommendations as follows: SOLITARY PURE GROUND-GLASS NODULE: Patients with a solitary pure ground-glass nodule less than 6 mm do not require follow-up. Larger than 6 mm solitary pure ground-glass nodule require CT in 6 to 12 months to confirm persistence, followed with CT every 2 years until 5 years. If grows or increasingly solid, consider resection. MULTIPLE PURE GROUND-GLASS NODULES: Patients with Multiple pure ground-glass nodules less than [address] in 3 to 6 months. If unchanged, consider CT in 2 and 4 years. Larger than 6 mm Multiple pure ground-glass nodules require CT at 3 to 6 months. The management based on most suspicious nodule(s). Note: These recommendations do not apply to lung cancer screening, patients with immunosuppression, or patients with known primary cancer. http://pubs.rsna.org/doi/pdf/10.1148/radiol.0443170824 THIS IS AN ELECTRONICALLY VERIFIED FINAL REPORT 07/13/2023 4:15 PM - Electronically signed by Aakash CRAIG Medical Decision Making Amount and/or Complexity of Data Reviewed Labs: ordered. Radiology: ordered. Risk Prescription drug management. ED Course as of 07/13/231651 Time: 07/13 1651 Comment: Notified patient about her lab work, CT findings. Advised her to take Tylenol ibuprofen for pain., follow with the primary doctor By: Jose Daniel Sellers MD Final diagnoses: Abdominal pain Epiploic appendagitis Jose Daniel Sellers MD 07/13/231651 NING PROJECT MANAGER * Pat Zheng RN - 07/13/2023 1:49 PM CST Pt ambulatory to triage with c/o generalized abdominal pain that goes into her back x 2 days with nausea and diarrhea. Pt denies vomiting or urinary changes. PMH IBS NING PROJECT MANAGER documented in this encounter Plan of Treatment Upcoming Encounters Date Type Department Care Team (Latest Contact Info) Description 07/25/2024 12:30 PM TRAINING PROJECT MANAGER Hospital Encounter [address] [address] Yves Krishna MD [address] [facility] [place] [address] 07/25/2024 12:30 PM TRAINING PROJECT MANAGER - 07/25/2024 1:25 PM TRAINING PROJECT MANAGER Surgery [address] [address] Yves Krishna MD [address] [facility] [address] [place] [address] ESOPHAGOGASTRODUODENOSCOPY Scheduled Procedures Name Priority Associated Diagnoses Date/Ti me ESOPHAGOGASTRODUODENOSCOPY Epigastric pain Diarrhea, unspecified type 07/25/2024 12:30 PM TRAINING PROJECT MANAGER COLONOSCOPY Epigastric pain Diarrhea, unspecified type 07/25/2024 12:30 PM TRAINING PROJECT MANAGER documented as of this encounter Procedures Procedure Name Priority Date/Time Associated Diagnosis Comments URINALYSIS AND REFLEX TO MICROSCOPIC AND CULTURE STAT 07/13/2023 4:34 [address] ABDOMEN PELVIS W CONTRAST ED 07/13/2023 4:01 PM TRAINING PROJECT MANAGER EGFR STAT 07/13/2023 2:24 PM TRAINING PROJECT MANAGER DIFFERENTIAL AUTO STAT 07/13/2023 2:2 4 PM TRAINING PROJECT MANAGER CBC WITH AUTO DIFFERENTIAL STAT 07/13/2023 2:24 PM TRAINING PROJECT MANAGER LIPASE STAT 07/13/2023 2:24 PM TRAINING PROJECT MANAGER COMPREHENSIVE METABOLIC PANEL STAT 07/13/2023 2:24 PM TRAINING PROJECT MANAGER documented in this encounter Results * Urinalysis reflex to microscopic and culture Urine (07/13/2023 4:34 PM TRAINING PROJECT MANAGER) Color, ur Straw Yellow [facility] ([place]) Clarity, ur Clear Clear [facility] ([place]) Specific gravity, ur 1.005 1.003 - 1.030 [facility] ([place]) pH, urine 7.5 [facility] ([place]) Comment: Interpretive Data ? Urine pH is affected by diet, medications, systemic acid-base disturbances, and renal tubular function. ??pH may affect urinary stone formation. ??For example, urine pH below 6.0 may help reduce the tendency for calcium phosphate stones and pH greater than 6.0 may reduce the tendency for uric acid stone formation. Source: [facility] [employer] Current Interpretive Data was last revised on 2017 Protein, ur ql Negative Negative [facility] ([place]) Glucose, ur ql Negative Negative [facility] ([place]) Ketones, ur Negative Negative [facility] ([place]) Bilirubin, ur Negative Negative [facility] ([place]) Blood, ur Negative Negative [facility] ([place]) Urobilinogen, ur <2.0 <2.0 mg/dL [facility] ([place]) Nitrite, ur Negative Negative [facility] ([place]) Leukocyte esterase, ur Negative Negative [facility] ([place]) UA reflex comment Reflex conditions for microscopic UA and culture not met. [facility] ([place]) Urine 07/13/2023 4:34 PM TRAINING PROJECT MANAGER 07/13/2023 4:38 PM TRAINING PROJECT MANAGER us Jose Daniel Sellers MD LAB MICROBIOLOGY - GENERAL ORD ERABLES Final Result [facility] ([place]) 1 [facility] Department of Laboratories [place], [place] [id number] * CT Abdomen Pelvis W Contrast (07/13/2023 4:01 PM TRAINING PROJECT MANAGER) Anatomical Region Laterality Modality Body N/A Computed Tomogra phy 07/13/2023 4:06 PM TRAINING PROJECT MANAGER Narrative 07/13/2023 4:15 PM TRAINING PROJECT MANAGER EXAM DESCRIPTION: ?? CT ABDOMEN PELVIS W CONTRAST REASON FOR STUDY: ?? Epigastric pain TECHNIQUE: CT scan of the abdomen and pelvis performed with intravenous and ?? without ??oral contrast using helical scanning technique with dynamic intravenous contrast injection. Reconstructed coronal and sagittal MPR images reviewed. All images stored on PACS. Automated exposure control was used as a dose optimization technique for this examination. CONTRAST TYPE/DOSE: ?? 75mL of IOVERSOL 350 MG IODINE/ML INTRAVENOUS SYRINGE COMPARISON: 10/26/2015 REFERENCE: Per ACR white paper recommendations, unless otherwise specified no follow-up imaging is recommended for incidental renal and adrenal lesions per consensus recommendations based on imaging criteria. Further lab evaluation could be pursued based on clinical findings. FINDINGS: LOWER CHEST: ??A new 16 mm ground-glass opacity in the lingula is most likely infectious or inflammatory in etiology (series 2 image 15). ??Unchanged 3 mm pulmonary nodule in the left lower lobe. LIVER: ?? Normal size. ??No identified cystic or solid masses. GALLBLADDER: ?? No stones identified. No wall thickening or inflammatory changes. BILE DUCTS: ?? No intrahepatic or extrahepatic ductal dilatation. SPLEEN: ?? Normal size. ??No focal lesions. PANCREAS: ?? No identified cystic or solid masses. No significant calcifications. No adjacent inflammation or peripancreatic fluid collections. Pancreatic duct not dilated. ?? ADRENALS: ?? Normal. KIDNEYS/URINARY TRACT: ?? No identified significant cystic or solid masses. No visualized stones. No hydronephrosis or hydroureter. Symmetric enhancement. ? Urinary bladder is unremarkable. GI: ?? No dilated bowel loops. No obvious wall thickening. Normal appendix. ?? There is minimal sigmoid diverticulosis without evidence of acute diverticulitis. ??There is mild fat stranding surrounding the descending colon (series 2, image 79). ??There is no adjacent colon diverticula. ??This finding represents epiploic appendagitis. PERITONEUM: ?? No ascites or free air. ??Left epiploic appendagitis. RETROPERITONEUM: ?? No mass or adenopathy. REPRODUCTIVE: ?? Uterus is present. ??There are bilateral adnexal follicles. VASCULATURE: ?? No abdominal aortic aneurysm. MUSCULOSKELETAL: ?? No significant abnormality. OTHER: ?? No other abnormality. IMPRESSION: 1. ?? Acute epiploic appendagitis along the mid descending colon. 2. ?? A new 1.6 cm groundglass opacity in the lingula is most likely infectious or inflammatory in etiology. Recent guidelines by the Fleischner Society (Radiology 884044,2017) divides patient into low vs. high risk (for example, patients who smoke are considered high risk) and provides followup recommendations as follows: SOLITARY PURE GROUND-GLASS NODULE: Patients with a solitary pure ground-glass nodule less than 6 mm do not require follow-up. ??Larger than 6 mm solitary pure ground-glass nodule require CT in 6 to 12 months to confirm persistence, followed with CT every 2 years until 5 years. ??If grows or increasingly solid, consider resection. MULTIPLE PURE GROUND-GLASS NODULES: Patients with Multiple pure ground-glass nodules less than [address] in 3 to 6 months. ??If unchanged, consider CT in 2 and 4 years. ??Larger than 6 mm Multiple pure ground-glass nodules require CT at 3 to 6 months. ??The management based on most suspicious nodule(s). Note: These recommendations do not apply to lung cancer screening, patients with immunosuppression, or patients with known primary cancer. http://pubs.rsna.org/doi/pdf/10.1148/radiol.8279444919 THIS IS AN ELECTRONICALLY VERIFIED FINAL REPORT 07/13/2023 4:15 PM - Electronically signed by ??Aakash Forbes M.D. MM: MM D: ??07/13/2023 4:15 PM T: ??07/13/2023 4:15 PM Report ID: [id number] Reading Location: ??[id number] Procedure Note Aakash Forbes MD - 07/13/2023 EXAM DESCRIPTION: CT ABDOMEN PELVIS W CONTRAST REASON FOR STUDY: Epigastric pain TECHNIQUE: CT scan of the abdomen and pelvis performed with intravenousand without oral contrast using helical scanning technique with dynamic intravenous contrast injection. Reconstructed coronal and sagittal MPRimages reviewed. All images stored on PACS. Automated exposure control was usedas a dose optimization technique for this examination. CONTRAST TYPE/DOSE: 75mL of IOVERSOL 350 MG IODINE/ML INTRAVENOUSSYRINGE COMPARISON: 10/26/2015 REFERENCE: Per ACR white paper recommendations, unless otherwise specifiedno follow-up imaging is recommended for incidental renal and adrenal lesionsper consensus recommendations based on imaging criteria. Further labevaluation could be pursued based on clinical findings. FINDINGS: LOWER CHEST: A new 16 mm ground-glass opacity in the lingula is mostlikely infectious or inflammatory in etiology (series 2 image 15). Unchanged 3mm pulmonary nodule in the left lower lobe. LIVER: Normal size. No identified cystic or solid masses. GALLBLADDER: No stones identified. No wall thickening or inflammatory changes. BILE DUCTS: No intrahepatic or extrahepatic ductal dilatation. SPLEEN: Normal size. No focal lesions. PANCREAS: No identified cystic or solid masses. No significant calcifications. No adjacent inflammation or peripancreatic fluidcollections. Pancreatic duct not dilated. ADRENALS: Normal. KIDNEYS/URINARY TRACT: No identified significant cystic or solid masses.No visualized stones. No hydronephrosis or hydroureter. Symmetricenhancement. Urinary bladder is unremarkable. GI: No dilated bowel loops. No obvious wall thickening. Normal appendix. There is minimal sigmoid diverticulosis without evidence of acute diverticulitis. There is mild fat stranding surrounding the descendingcolon (series 2, image 79). There is no adjacent colon diverticula. Thisfinding represents epiploic appendagitis. PERITONEUM: No ascites or free air. Left epiploic appendagitis. RETROPERITONEUM: No mass or adenopathy. REPRODUCTIVE: Uterus is present. There are bilateral adnexal follicles. VASCULATURE: No abdominal aortic aneurysm. MUSCULOSKELETAL: No significant abnormality. OTHER: No other abnormality. IMPRESSION: 1. Acute epiploic appendagitis along the mid descending colon. 2. A new 1.6 cm groundglass opacity in the lingula is most likelyinfectious or inflammatory in etiology. Recent guidelines by the Fleischner Society (Radiology 398904,2017)divides patient into low vs. high risk (for example, patients who smoke areconsidered high risk) and provides followup recommendations as follows: SOLITARY PURE GROUND-GLASS NODULE: Patients with a solitary pureground-glass nodule less than 6 mm do not require follow-up. Larger than 6 mm solitary pure ground-glass nodule require CT in 6 to 12 months to confirmpersistence, followed with CT every 2 years until 5 years. If grows or increasinglysolid, consider resection. MULTIPLE PURE GROUND-GLASS NODULES: Patients with Multiple pureground-glass nodules less than [address] in 3 to 6 months. If unchanged,consider CT in 2 and 4 years. Larger than 6 mm Multiple pure ground-glass nodulesrequire CT at 3 to 6 months. The management based on most suspicious nodule(s). Note: These recommendations do not apply to lung cancer screening,patients with immunosuppression, or patients with known primary cancer. http://pubs.rsna.org/doi/pdf/10.1148/radiol.3905374843 THIS IS AN ELECTRONICALLY VERIFIED FINAL REPORT 07/13/2023 4:15 PM - Electronically signed by Aakash Forbes M.D. MM: MM Report ID: [id number] Reading Location: [place] [address] Jose Daniel Sellers MD IMG CT PROCEDURES Final Result * eGFR (07/13/2023 2:24 PM TRAINING PROJECT MANAGER) eGFR 92 mL/min/1. 73 m2 [facility] ([place]) Comment: Interpretive Data Reference Interval Normal ?>/= 90 mL/min/1.73m2 Mildly decreased* ? 60 - 89 mL/min/1.73m2 Mildly to moderately decreased ?45 - 59 mL/min/1.73m2 Moderately to severely decreased ??30 - 44 mL/min/1.73m2 Severely decreased ?15 - 29 mL/min/1.73m2 Kidney Failure ?< 15 ??mL/min/1.73m2 *Relative to young adult level Estimated glomerular filtration rate is determined by the 2020 CKD-EPI equation recommended by the National Kidney Foundation (A Unifying Approach to GFR Estimation: Recommendations of the NKF-ASK Task Force on Reassessing the Inclusion of Race in Diagnosing Kidney Disease, JASN 2020). The CKD-EPI equation should not be used for patients with unstable renal function and has not been validated in children and those over 70. Current interpretive data was last reviewed 2021. Blood 07/13/2023 2:24 PM TRAINING PROJECT MANAGER 07/13/2023 2:26 PM TRAINING PROJECT MANAGER us Jose Daniel Sellers MD LAB BLOOD ORDERABLES Final Res ult [facility] ([place]) 1 [facility] Department [place] [address] * Differential, auto (07/13/2023 2:24 PM TRAINING PROJECT MANAGER) Neutrophil abs 5.5 1.5 - 6.5 K/cumm [facility] ([place]) Imm gran abs 0.0 0.0 - 0.1 K/cumm [facility] ([place]) Lymphocyte abs 2.0 0.8 - 3.3 K/cumm [facility] ([place]) Monocyte abs 0.5 0.2 - 0.8 K/cumm [facility] ([place]) Eosinophil abs 0.1 0.0 - 0.5 K/cumm [facility] ([place]) Basophil abs 0.1 0.0 - 0.1 K/cumm [facility] ([place]) Neutrophil pct 67.2 % [facility] ([place]) Comment: Interpretive Data Percent cell count reference ranges are not reported, since discordance with absolute values may lead to misinterpretation of CBC data. Current Interpretive Data was last revised on 2017. Imm gran pct 0.2 % [facility] ([place]) Comment: Interpretive Data Percent cell count reference ranges are not reported, since discordance with absolute values may lead to misinterpretation of CBC data. Current Interpretive Data was last revised on 2017. Lymphocyte pct 24.0 % [facility] ([place]) Comment: Interpretive Data Percent cell count reference ranges are not reported, since discordance with absolute values may lead to misinterpretation of CBC data. Current Interpretive Data was last revised on 2017. Monocyte pct 6.4 % [facility] ([place]) Comment: Interpretive Data Percent cell count reference ranges are not reported, since discordance with absolute values may lead to misinterpretation of CBC data. Current Interpretive Data was last revised on 2017. Eosinophil pct 1.6 % [facility] ([place]) Comment: Interpretive Data Percent cell count reference ranges are not reported, since discordance with absolute values may lead to misinterpretation of CBC data. Current Interpretive Data was last revised on 2017. Basophil pct 0.6 % [facility] ([place]) Comment: Interpretive Data Percent cell count reference ranges are not reported, since discordance with absolute values may lead to misinterpretation of CBC data. Current Interpretive Data was last revised on 2017. Blood 07/13/2023 2:24 PM TRAINING PROJECT MANAGER 07/13/2023 2:26 PM TRAINING PROJECT MANAGER Jose Daniel Sellers MD LAB BLOOD ORDERABLES Final Res ult Performing Organization Address [place]/[facility]/ZIP Co de Phone Number [facility] ([place]) [address] [facility] [place] [address] * Lipase (07/13/2023 2:24 PM TRAINING PROJECT MANAGER) Lipase 49 10 - 99 Units/L [facility] ([place]) Blood 07/13/2023 2:24 PM TRAINING PROJECT MANAGER 07/13/2023 2:26 PM TRAINING PROJECT MANAGER Jose Daniel Sellers MD LAB BLOOD ORDERABLES Final Res ult Performing Organization Address [place]/[facility] Co de Phone Number [facility] ([place]) [address] [facility] [place] [address] * Comprehensive metabolic panel (07/13/2023 2:24 PM TRAINING PROJECT MANAGER) Sodium 139 135 - 145 mmol/L [facility] ([place] Potassium, pl 4.1 3.3 - 4.9 mmol/L [facility] ([place] Chloride 106 97 - 110 mmol/L [facility] ([place] CO2 24 22 - 32 mmol/L [facility] ([place]) Anion gap 9 2 - 15 mmol/L [facility] ([place]) BUN 9 6 - 25 mg/dL [facility] ([place]) Creatinine 0.83 0.60 - 1.10 mg/dL [facility] ([place]) Glucose 95 70 - 199 mg/dL [facility] ([place]) Comment: Interpretive Data Fasting glucose >/= 126 mg/dl is diagnostic for diabetes. ?? Fasting is defined as no caloric intake for at least 8 hours. Fasting glucose between 100 mg/dl to 125 mg/dl is diagnostic of prediabetes. In a patient with classic symptoms of hyperglycemia or hyperglycemic crisis, a random glucose >/= 200 mg/dl is diagnostic for diabetes. In the absence of unequivocal hyperglycemia, results should be confirmed by repeat testing. The classification and Diagnosis of Diabetes Diabetes Care 202; 46: S19-S40. Current interpretive data was last revised 2022. Calcium 9.1 8.5 - 10.3 mg/dL [facility] ([place]) Bilirubin, total 0.3 0.1 - 1.2 mg/dL [facility] ([place]) Protein, pl 6.6 6.5 - 8.5 g/dL [facility] ([place]) Albumin 4.1 3.5 - 5.0 g/dL [facility] ([place]) Alk phos 56 40 - 130 Units/L [facility] ([place]) ALT 17 7 - 45 Units/L [facility] ([place]) AST 17 10 - 45 Units/L [facility] ([place]) Blood 07/13/2023 2:24 PM TRAINING PROJECT MANAGER 07/13/2023 2:26 PM TRAINING PROJECT MANAGER us Jose Daniel Sellers MD LAB BLOOD ORDERABLES Final Res ult [facility] ([place]) 1 [facility] Department [place] [address] * CBC with auto differential (07/13/2023 2:24 PM TRAINING PROJECT MANAGER) WBC 8.1 3.8 - 9.9 K/cumm [facility] ([place]) Hgb 13.6 11.9 - 15.5 g/dL [facility] ([place]) Hct 39.5 35.6 - 45.5 % [facility] ([place]) Plt 258 150 - 400 K/cumm [facility] ([place]) MPV 9.2 9.1 - 12.3 fL [facility] ([place]) RBC 4.23 3.90 - 5.20 M/cumm [facility] ([place]) MCV 93.4 81.3 - 96.4 fL [facility] ([place]) MCH 32.2 27.1 - 33.3 pg [facility] ([place]) MCHC 34.4 32.3 - 35.7 g/dL [facility] ([place]) RDW CV 11.8 11.1 - 14.9 % [facility] ([place]) RDW SD 40.3 35.7 - 48.1 fL [facility] ([place]) NRBC abs 0.00 0.00 - 0.01 K/cumm [facility] ([place]) Blood 07/13/2023 2:24 PM TRAINING PROJECT MANAGER 07/13/2023 2:26 PM TRAINING PROJECT MANAGER us Jose Daniel Sellers MD LAB BLOOD ORDERABLES Final Res ult [facility] ([place]) 1 [facility] Department [place] [address] documented in this encounter Visit Diagnoses Diagnosis Abdominal pain- Primary Abdominal pain, unspecified site Epiploic appendagitis Epigastric pain Abdominal pain, epigastric Diarrhea, unspecified type documented in this encounter Administered Medications Inactive Administered Medications - up to 3 most recent administrations Medication Order MAR Action Action Date Dose Rate Site ioversoL (OPTIRAY 350) syringe 75 mL 75 mL, intravenous, Once in imaging, contrast, Starting on Tue07/13/23 at 1543, For 1 dose Contrast Given 07/13/2023 3:43 PM TRAINING PROJECT MANAGER 75 mL documented in this encounter Active and Recently Administered Medications Times are shown in TRAINING PROJECT MANAGER. PRN Medication Order 07/11/2023 07/12/2023 07/13/2023 ioversoL (OPTIRAY 350) syringe 75 mL (COMPLETED) 75 mL, intravenous, Once in imaging, contrast, Starting on Tue07/13/23 at 1543, For 1 dose 1543 (Contrast Given - Provider: Tran Clinton, RT) documented in this encounter Orders Medications Ordered That Abdulaziz ht Not Have Been Administered Count Last Ordered Date First Ordered Date ioversoL (OPTIRAY 350) syringe 75 mL 1 12/2023 documented in this encounter Care Teams Manager Strategic Relationship Specialty Start Date End Date Gwen Calero PA PCP - General Neurosurgery 06/03/22 documented as of this encounter
--- OUTSIDE RECORDS SUMMARY | 2024-06-09 08:01 | XMS_ITS | Encounter Summary ---
Author Organization [facility] Address [address] [place] [address] Care Team Providers Care Powder Room Attendant Name Role Phone Carmen Brown MD Primary Care Provider [phone] Encounter Details Date Type Department Care Team (Late st Contact Info) Description 10/18/2017 Orders Only [facility] [address] [facility] [address] [place] [phone] Andrea Addison MD [address] [place] [address] [address] [place] [address] Social History Tobacco Use Types Packs/Day Years Used Date Smoking Tobacco: Never Smokeless Tobacco: Never Alcohol Use Standard Drinks/Week Comments Yes 0 (1 standard drink = 0.6 oz pur e alcohol) Rare Comments No Sex and Gender Information Value Date Recorded Sex Assigned at Not on file Legal Sex Female 3:43 AM BOILER MAKER Gender Identity Not on file Sexual Orientation Not on file documented as of this encounter Progress Notes * Andrea Addison MD - 10/18/2017 11:59 PM CDT Please call patient with results. Bx shows mild dysplasia. Repeat pap in six months. documented in this encounter Plan of Treatment Upcoming Encounters Date Type Department Care Team (Latest Contact Info) Description 07/25/2024 12:30 PM BOILER MAKER Hospital Encounter [facility] 1 [place] [address] Yves Krishna MD [address] [place] [address] [address] [place] [address] 07/25/2024 12:30 PM BOILER MAKER - 07/25/2024 1:25 PM BOILER MAKER Surgery [facility] 1 [place] [address] Yves Krishna MD [address] [facility] [address] [place] [address] ESOPHAGOGASTRODUODENOSCOPY Scheduled Procedures Name Priority Associated Diagnoses Date/Ti me ESOPHAGOGASTRODUODENOSCOPY Epigastric pain Diarrhea, unspecified type 07/25/2024 12:30 PM BOILER MAKER COLONOSCOPY Epigastric pain Diarrhea, unspecified type 07/25/2024 12:30 PM BOILER MAKER documented as of this encounter Procedures Procedure Name Priority Date/Time Associated Diagnosis Comments TISSUE, SPECIMEN A Routine 10/18/2017 12 :00 AM CDT TISSUE PATHOLOGY Routine 10/18/2017 12:0 0 AM CDT documented in this encounter Results * Tissue, specimen A (10/18/2017 12:00 AM CDT) A Clinical impression [facility]CEL[facility] Comment:Result canceled by t caden ancillary A source [facility] Comment:Cervix, biopsy: A procedure [facility]CELED [facility] Comment:Result canceled by t caden ancillary A Gross description [facility] Comment: Received in formalin, labeled only with 2 patient identifiers, is a 0.3 x 0.2 x 0.1 cm kaufman tissue submitted in a single cassette. ?? DJ ??Gross exam(s) performed at: [id number] ??[id number] [facility] [id number] ??Powder Line Repairer: SIERRA GARCIA MD A Micro description [facility]CELED [facility] Comment:Result canceled by t caden ancillary A diagnosis [facility] Comment: - Low grade squamous intraepithelial lesion, mild squamous dysplasia (MERCEDES 1). ?? - Transformation zone component present. - No malignancy. A comment [facility] Comment: The current biopsy and recent cytologic report correlate sufficiently to guide patient management. 10/18/2017 10/19/2017 2:5 8 AM CDT Narrative [facility] - 10/20/2017 10:33 AM CDT FASTING: UNKNOWN Resulting Agency Comment Performing Organization Information: ?Site ID: [place] ?Name: [facility] ?Address: [facility] [place] [id number] ?Director: Sierra Garcia Andrea Addison MD LAB PATHOLOGY ORDERABLES F inal Result Performing Organization Address [facility] Co de Phone Number [facility] [place], [place] * Surgical pathology tissue exam request - other pathology (10/18/2017 12:00 AM CDT) Report type CANCELED [facility] Comment:Result canceled by t he ancillary Clinical information [facility] - Comment:Colposcopy cervix PATHOLOGIST [facility] - Comment: Shoaib Stafford M.D., Board Certified in Anatomic and Clinical Pathology. (electronic signature) Report notes [facility] Comment:Result canceled by t he ancillary 10/18/2017 10/19/2017 2:5 8 AM CDT Narrative [facility] - 10/20/2017 10:33 AM CDT FASTING: UNKNOWN Resulting Agency Comment Performing Organization Information: ?Site ID: [place] ?Name: [facility] ?Address: [facility] [place] [phone] ?Director: Sierra Garcia Andrea Addison MD LAB PATHOLOGY ORDERABLES F inal Result Performing Organization Address [facility] Co de Phone Number [facility] [place], [place] documented in this encounter Visit Diagnoses Not on filedocumented in this encounter Care Teams Powder Room Attendant Relationship Specialty Start Date End Date Carmen Brown MD PCP - General Family Practice 11/02/16 06/02/22 documented as of this encounter
--- OUTSIDE RECORDS SUMMARY | 2024-06-09 08:01 | XMS_ITS | Encounter Summary ---
Author Organization [facility] Address [address] [place] [address] Care Team Providers Care Receptionist Telephone Operator Name Role Phone Carmen Brown MD Primary Care Provider [phone] Reason for Visit * Reason Comments Routine Visit Encounter Details Date Type Department Care Team (Latest Contact Info) Description 01/03/2017 2:15 PM CDT [facility] [address] [facility] [address] [place] [phone] Andrea Addison MD [address] [place] [address] [address] [place] [address] Supervision of normal intrauterine in multigravida in third trimester (Primary Dx); 38 weeks gestation of Social History Tobacco Use Types Packs/Day Years Used Date Smoking Tobacco: Never Comments Yes Sex and Gender Information Value Date Recorded Sex Assigned at Not on file Legal Sex Female 3:43 AM BATCH FREEZER Gender Identity Not on file Sexual Orientation Not on file documented as of this encounter Last Filed Vital Signs Vital Sign Reading Time Taken Comments Blood Pressure 122/72 01/03/2017 2:44 PM CDT Pulse - - Temperature - - Respiratory Rate - - Oxygen Saturation - - Inhaled Oxygen Concentration - - Weight 82.6 kg (182 lb) 01/03/2017 2:44 PM CDT Height - - Body Mass Index 32.24 04/21/2016 8:52 AM BATCH FREEZER documented in this encounter Progress Notes * Andrea Addison MD - 01/03/2017 2:15 PM CDT Labor instructions. * Andrea Addison MD - 01/03/2017 2:15 PM CDT See paper chart. documented in this encounter Plan of Treatment Upcoming Encounters Date Type Department Care Team (Latest Contact Info) Description 07/25/2024 12:30 PM BATCH FREEZER Hospital Encounter [address] [address] Yves Krishna MD 4 [facility] [address] [place] [address] 07/25/2024 12:30 PM BATCH FREEZER - 07/25/2024 1:25 PM BATCH FREEZER Surgery [address] [address] Yves Krishna MD 4 [facility] [address] [place] [address] ESOPHAGOGASTRODUODENOSCOPY Scheduled Procedures Name Priority Associated Diagnoses Date/Ti me ESOPHAGOGASTRODUODENOSCOPY Epigastric pain Diarrhea, unspecified type 07/25/2024 12:30 PM BATCH FREEZER COLONOSCOPY Epigastric pain Diarrhea, unspecified type 07/25/2024 12:30 PM BATCH FREEZER documented as of this encounter Procedures Procedure Name Priority Date/Time Associated Diagnosis Comments POCT URINALYSIS DIPSTICK Routine 01/03/2017 2:42 PM CDT Supervision of normal intrauterine in multigravida in third trimester GROUP B STREPTOCOCCUS CULTURE Routine 12/13/2016 documented in this encounter Results * POCT urinalysis dipstick (01/03/2017 2:42 PM CDT) Glucose, ur, POC Negative mmol/L Protein, ur, POC Negative mg/dL Lot Number [id number] Urine 01/03/2017 2:42 PM CDT Andrea Addison MD POINT OF CARE TEST ORDERAB LES Final Result * Group B streptococcal culture Vaginal/Rectal (12/13/2016) SCRIBED Group B Strep normal Comment:negative Vaginal/Rectal Andrea Addison MD LAB MICROBIOLOGY - GENERAL ORDERABLES Final Result documented in this encounter Visit Diagnoses Diagnosis Supervision of normal intrauterine in multigravida in third trimester- Primary 38 weeks gestation of Epigastric pain Abdominal pain, epigastric Diarrhea, unspecified type documented in this encounter Care Teams Receptionist Telephone Operator Relationship Specialty Start Date End Date Carmen Brown MD PCP - General Family Practice 11/02/16 06/02/22 documented as of this encounter
--- OUTSIDE RECORDS SUMMARY | 2024-06-09 08:01 | XMS_ITS | Encounter Summary ---
Author Organization [facility] Address [address] [place] [address] Care Team Providers Care Obstetrics Nurse Practitioner Name Role Phone Carmen Brown MD Primary Care Provider Reason for Visit * Reason Comments Routine Visit Encounter Details Date Type Department Care Team (Late st Contact Info) Description 12/27/2016 1:15 PM CDT Routine [place] [facility] [address] [facility] [address] [place] [phone] Andrea Addison MD [address] [place] [address] [address] [place], [place] [id number] Encounter for supervision of other normal in third trimester (Primary Dx); 37 weeks gestation of Social History Tobacco Use Types Packs/Day Years Used Date Smoking Tobacco: Never Comments Yes Sex and Gender Information Value Date Recorded Sex Assigned at Not on file Legal Sex Female 3:43 AM STACK YIELD ENGINEER Gender Identity Not on file Sexual Orientation Not on file documented as of this encounter Last Filed Vital Signs Vital Sign Reading Time Taken Comments Blood Pressure 122/64 12/27/2016 1:40 PM CDT Pulse - - Temperature - - Respiratory Rate - - Oxygen Saturation - - Inhaled Oxygen Concentration - - Weight 79.8 kg (176 lb) 12/27/2016 1:40 PM CDT Height - - Body Mass Index 31.18 04/21/2016 8:52 AM STACK YIELD ENGINEER documented in this encounter Progress Notes * Andrea Addison MD - 12/27/2016 1:15 PM CDT No c/os. Now off of Procardia. echo done 3 days ago: verbal per pt showed patent foramen ovale. S=D; labor instructions. documented in this encounter Plan of Treatment Upcoming Encounters Date Type Department Care Team (Latest Contact Info) Description 07/25/2024 12:30 PM STACK YIELD ENGINEER Hospital Encounter [facility] 1 [place] [address] Yves Krishna MD [address] [place] [address] [address] [place] [address] 07/25/2024 12:30 PM STACK YIELD ENGINEER - 07/25/2024 1:25 PM STACK YIELD ENGINEER Surgery [address] [address] Yves Krishna MD [address] [place] [address] [address] [place] [address] ESOPHAGOGASTRODUODENOSCOPY Scheduled Procedures Name Priority Associated Diagnoses Date/Ti me ESOPHAGOGASTRODUODENOSCOPY Epigastric pain Diarrhea, unspecified type 07/25/2024 12:30 PM STACK YIELD ENGINEER COLONOSCOPY Epigastric pain Diarrhea, unspecified type 07/25/2024 12:30 PM STACK YIELD ENGINEER documented as of this encounter Procedures Procedure Name Priority Date/Time Associated Diagnosis Comments POCT URINALYSIS DIPSTICK Routine 12/27/2016 1:34 PM CDT 37 weeks gestation of Encounter for supervision of other normal in third trimester documented in this encounter Results * POCT urinalysis dipstick (12/27/2016 1:34 PM CDT) Glucose, ur, POC Negative mmol/L Protein, ur, POC 1+ mg/dL Lot Number [id number] Urine 12/27/2016 1:34 PM CDT us Andrea Addison MD POINT OF CARE TEST ORDERAB LES Final Result documented in this encounter Visit Diagnoses Diagnosis Encounter for supervision of other normal in third trimester- Primary 37 weeks gestation of Epigastric pain Abdominal pain, epigastric Diarrhea, unspecified type documented in this encounter Care Teams Obstetrics Nurse Practitioner Relationship Specialty Start Date End Date Carmen Brown MD PCP - General Family Practice 11/02/16 06/02/22 documented as of this encounter
--- OUTSIDE RECORDS SUMMARY | 2024-06-09 08:01 | XMS_ITS | Encounter Summary ---
Author Organization [facility] Address [address] [place] [address] Care Team Providers Care Stencil Sprayer Name Role Phone Carmen Brown MD Primary Care Provider Reason for Visit * Reason Comments Routine Visit Encounter Details Date Type Department Care Team (Late st Contact Info) Description 12/13/2016 2:45 PM CDT Routine [facility] [address] [facility] [address] [place] [phone] Andrea Addison MD [address] [place] [address] [address] [place] [address] Encounter for supervision of other normal in third trimester (Primary Dx); 35 weeks gestation of Social History Tobacco Use Types Packs/Day Years Used Date Smoking Tobacco: Never Comments Yes Sex and Gender Information Value Date Recorded Sex Assigned at Not on file Legal Sex Female 3:43 AM GLOBAL SALES EXECUTIVE Gender Identity Not on file Sexual Orientation Not on file documented as of this encounter Last Filed Vital Signs Vital Sign Reading Time Taken Comments Blood Pressure 124/64 12/13/2016 3:07 PM CDT Pulse - - Temperature - - Respiratory Rate - - Oxygen Saturation - - Inhaled Oxygen Concentration - - Weight 78.9 kg (174 lb) 12/13/2016 3:07 PM CDT Height - - Body Mass Index 30.82 04/21/2016 8:52 AM GLOBAL SALES EXECUTIVE documented in this encounter Ordered Prescriptions Prescription Sig Dispense Quantity Refills Last Filled Start Date End Date NIFEdipine (PROCARDIA) 10 mg capsule Take 1 capsule (10 mg total) by mouth every 6 (six) hours. 50 capsule 12/13/2016 7 documented in this encounter Progress Notes * Andrea Addison MD - 12/13/2016 2:45 PM CDT Patient reports 10 cntxs today. She declines steroids with rationale discussed. Will begin Procardia 10mg po q6 hours. To L&D if 6 painful cntxs per hour x 2 hours. S=D; GBS cx done. documented in this encounter Plan of Treatment Upcoming Encounters Date Type Department Care Team (Latest Contact Info) Description 07/25/2024 12:30 PM GLOBAL SALES EXECUTIVE Hospital Encounter [address] [address] Yves Krishna MD [address] [place] [address] [address] [address] 07/25/2024 12:30 PM GLOBAL SALES EXECUTIVE - 07/25/2024 1:25 PM GLOBAL SALES EXECUTIVE Surgery [address] [address] Yves Krishna MD [address] [place] [address] [address] [place] [address] ESOPHAGOGASTRODUODENOSCOPY Scheduled Procedures Name Priority Associated Diagnoses Date/Ti ar ESOPHAGOGASTRODUODENOSCOPY Epigastric pain Diarrhea, unspecified type 07/25/2024 12:30 PM GLOBAL SALES EXECUTIVE COLONOSCOPY Epigastric pain Diarrhea, unspecified type 07/25/2024 12:30 PM GLOBAL SALES EXECUTIVE documented as of this encounter Procedures Procedure Name Priority Date/Time Associated Diagnosis Comments POCT URINALYSIS DIPSTICK Routine 12/13/2016 3:02 PM CDT Encounter for supervision of other normal in third trimester 35 weeks gestation of documented in this encounter Results * POCT urinalysis dipstick (12/13/2016 3:02 PM CDT) Glucose, ur, POC Negative mmol/L Protein, ur, POC 1+ mg/dL Lot Number [id number] Urine 12/13/2016 3:02 PM CDT us Andrea Addison MD POINT OF CARE TEST ORDERAB LES Edited Result - Final documented in this encounter Visit Diagnoses Diagnosis Encounter for supervision of other normal in third trimester- Primary 35 weeks gestation of Epigastric pain Abdominal pain, epigastric Diarrhea, unspecified type documented in this encounter Care Teams Stencil Sprayer Relationship Specialty Start Date End Date Carmen Brown MD PCP - General Family Practice 11/02/16 06/02/22 documented as of this encounter
--- OUTSIDE RECORDS SUMMARY | 2024-06-09 08:01 | XMS_ITS | Encounter Summary ---
Author Organization [facility] Address [address] [facility] [address] [place] [address] Care Team Providers Care Benefits Clerk Name Role Phone Carmen Brown MD Primary Care Provider Reason for Visit * Reason Comments Gynecologic Exam Annual Encounter Details Date Type Department Care Team (Late st Contact Info) Description 08/30/2017 9:30 AM CDT Office Visit [facility] [address] [facility] [address] [place] [id number] Andrea Addison MD [address] [place] [address] [address] [place], [place] [id number] Well woman exam (Primary Dx); Cervical high risk HPV (human papillomavirus) test positive Social History Tobacco Use Types Packs/Day Years Used Date Smoking Tobacco: Never Smokeless Tobacco: Never Alcohol Use Standard Drinks/Week Comments Yes 0 (1 standard drink = 0.6 oz pur e alcohol) Rare Comments No Sex and Gender Information Value Date Recorded Sex Assigned at Not on file Legal Sex Female 3:43 AM BEAUTY ARTIST Gender Identity Not on file Sexual Orientation Not on file documented as of this encounter Last Filed Vital Signs Vital Sign Reading Time Taken Comments Blood Pressure 116/76 08/30/2017 9:37 AM CDT Pulse - - Temperature - - Respiratory Rate - - Oxygen Saturation - - Inhaled Oxygen Concentration - - Weight 73.5 kg (162 lb) 08/30/2017 9:37 AM CDT Height 160 cm (5' 3 ) 08/30/2017 9:37 AM CDT Body Mass Index 28.7 08/30/2017 9:37 AM CDT documented in this encounter Progress Notes * Andrea Addison MD - 08/30/2017 9:30 AM CDT Well Woman Exam Subjective: Pateint presents for: Gynecologic Exam (Annual) Shalonda Constantino is a 32 y.o. year old female who presents for a well woman exam. She deniesc/os. She continues to nurse her baby. Contraception:Withdrawal. Patient's last menstrual period was 08/09/2017. Past Medical History: Diagnosis Date ??? Abnormal Pap smear of cervix ??? Depression ??? HX OTHER MEDICAL ; Outcome: 38W0D week 6lb(s) Male ??? HX OTHER MEDICAL ; Outcome: 38W0D week 6lb(s) 5 oz Female Past Surgical History: Procedure Laterality Date ??? LASIK LASIK ??? OTHER SURGICAL HISTORY 2003 : 6 hr labor ??? OTHER SURGICAL HISTORY 2006 : 12 hr labor ??? OTHER SURGICAL HISTORY hole patched on ear drum ??? VAGINAL DELIVERY 01/11/2017 Current Outpatient Prescriptions: ??? no.[id number]-dha (MACHINE LAY OUT WORKER-PNV-DHA) 28 mg iron- 1 mg-200 mg capsule, take 1 capsule by oralroute every day, Disp: 30, Rfl: 11 No Known Allergies Family History Problem Relation Age of Onset ??? Hypertension Mother Hypertension; ??? Thyroid disease Mother Thyroid disease; Social History Social History ??? Marital status: Spouse name: N/A ??? Number of children: 3 ??? Years of education: N/A Social History Main Topics ??? Smoking status: Never Smoker ??? Smokeless tobacco: Never Used ??? Alcohol use Yes Comment: Rare ??? Drug use: No ??? Sexual activity: Yes Partners: Male control/ protection: Coitus interruptus Other Topics Concern ??? None Social History Narrative ??? None Review of Systems Constitutional: Negative for chills, fatigue, fever and unexpected weight change. HENT: Negative for hearing loss, sore throat, tinnitus and trouble swallowing. Eyes: Positive for visual disturbance (Occasional blurred vision). Negative for pain. Respiratory: Negative for cough, shortness of breath and wheezing. Cardiovascular: Negative for chest pain, palpitations and leg swelling. Gastrointestinal: Negative for abdominal pain, blood in stool, constipation, diarrhea, nausea and vomiting. Endocrine: Negative for cold intolerance, heat intolerance and polydipsia. Genitourinary: Negative for dyspareunia, dysuria, frequency, hematuria, menstrual problem, pelvic pain, vaginal bleeding and vaginal discharge. Musculoskeletal: Negative for arthralgias, back pain, joint swelling and myalgias. Skin: Negative for color change and rash. Neurological: Negative for dizziness, numbness and headaches. Hematological: Does not bruise/bleed easily. Psychiatric/Behavioral: Negative for dysphoric mood, sleep disturbance and suicidal ideas. The patient is not nervous/anxious. Objective: BP 116/76 (BP Location: Right arm) Ht 160 cm (5' 3 ) Wt 162 lb (73.5 kg) LMP 08/09/2017 BMI28.70 kg/m?? Physical Exam Constitutional: She is oriented to person, place, and time. She appears well- developed and well-nourished. HENT: Head: Normocephalic. Eyes: Conjunctivae are normal. Neck: Neck supple. No thyromegaly present. Cardiovascular: Normal rate and regular rhythm. Pulmonary/Chest: Effort normal and breath sounds normal. Right breast exhibits no mass, no nipple discharge, no skin change and no tenderness. Left breast exhibits no mass, no nipple discharge, no skin change and no tenderness. Abdominal: Soft. She exhibits no mass. There is no tenderness. There is no rebound. No hernia. Genitourinary: Vagina normal and uterus normal. There is no lesion on the right labia. There is no lesion on the left labia. Uterus is not enlarged and not tender. Cervix exhibits no motion tenderness. Right adnexum displays no mass and no tenderness. Left adnexum displays no mass and no tenderness. No vaginal discharge found. Musculoskeletal: She exhibits no edema or tenderness. Lymphadenopathy: She has no cervical adenopathy. She has no axillary adenopathy. Right: No inguinal and no supraclavicular adenopathy present. Left: No inguinal and no supraclavicular adenopathy present. Neurological: She is alert and oriented to person, place, and time. Skin: Skin is warm and dry. Psychiatric: She has a normal mood and affect. Assessment and Plan: Normal exam. Diagnoses and all orders for this visit: Well woman exam (Primary) - ThinPrep Imaging Pap and HPV mRNA E6/E7 Reflex HPV 16,18/45; Future Cervical high risk HPV (human papillomavirus) test positive Comments: Last pap WNL; pap and HR HPV repeated. Recommended screenings and preventive care discussed: Breast cancer: Breast Self Exam encouraged. Pap and HR HPV done. Contraceptive options discussed. cholesterol screening discussed. Low fat, low carbohydrate diet and exercise encouraged. Return in about 1 year (around 08/30/2018) for annual exam. Andrea Addison MD 08/30/2017 * Andrea Addison MD - 08/30/2017 9:30 AM CDT Please call patient with results. ASCUS, positive HR HPV. I think patient declined colpo during herpregnancy. If we have not done one, recommend colpo in next 2-3 months. documented in this encounter Plan of Treatment Upcoming Encounters Date Type Department Care Team (Latest Contact Info) Description 07/25/2024 12:30 PM BEAUTY ARTIST Hospital Encounter [address] [address]Yves Franklin MD [address] [facility] [place] [address] 07/25/2024 12:30 PM BEAUTY ARTIST - 07/25/2024 1:25 PM BEAUTY ARTIST Surgery [address] [address]Yves Franklin MD [address] [facility] [address] [place] [address] ESOPHAGOGASTRODUODENOSCOPY Scheduled Orders Name Type Priority Associated Diagnoses Orde r Schedule ThinPrep Imaging Pap and HPV mRNA E6/E7 Reflex HPV 16,18/45 Pathology and Cytology Routine Well woman exam Expected: 08/30/2017, Expires: 08/30/2018 Scheduled Procedures Name Priority Associated Diagnoses Date/Ti me ESOPHAGOGASTRODUODENOSCOPY Epigastric pain Diarrhea, unspecified type 07/25/2024 12:30 PM BEAUTY ARTIST COLONOSCOPY Epigastric pain Diarrhea, unspecified type 07/25/2024 12:30 PM BEAUTY ARTIST documented as of this encounter Procedures Procedure Name Priority Date/Time Associated Diagnosis Comments HPV MRNA E6/E7 REFLEX HPV 16, 18/45 Routine 08/30/2017 10:03 AM CDT THINPREP WET MACHINE TENDER PAP (IMAGE GUIDED) LIQUID-BASED PREP Routine 08/30/2017 10:03 AM CDT documented in this encounter Results * (ABNORMAL) HPV mRNA E6/E7 REFLEX HPV 16, 18/45 (08/30/2017 10:03 AM CDT) Human papillomavirus RNA, High Risk E6/E7 Detected( A) Not Detected [facility] Comment: This test was performed using the APTIMA HPV Assay ([employer] ? This assay detects E6/E7 viral messenger RNA (mRNA) from 14 high-risk HPV types (16,18,31,33,35,39,45,51,52,56,58,59,66,68). 08/30/2017 10:0 3 AM CDT 08/31/2017 4:08 AM CDT Narrative Resulting Agency Comment Performing Organization Information: ?Site ID: ?Name: [facility] ?Address: Counts include [address] beds at the [facility] [place] [address] ?Director: Jeremias Garcia MD Andrea Addison MD LAB BLOOD ORDERABLES Final Result [facility] [place] * (ABNORMAL) ThinPrep Gynecologic Pap Test (Image-guided), Liquid-based Preparation (08/30/2017 10:03AM CDT) Report status CANCELED [facility] Comment:Result canceled by t he ancillary CLINICAL INFORMATION: [facility] Comment:Information not prov ided LMP [facility] Comment:INFORMATION NOT PROV IDED Previous Pap [facility] Comment:INFORMATION NOT PROV IDED Prev. Bx [facility] - Comment:INFORMATION NOT PROV IDED SOURCE: [facility] - Comment:Information not prov ided Pap, specimen adequacy [facility] - Comment: Satisfactory for evaluation. Endocervical/transformation zone component present. Age and/or menstrual status not provided Pap, general categorization (A) [facility] - Comment:EPITHELIAL CELL ABNO RMALITY HPV interp (A) [facility] - Comment: Atypical Squamous Cells of Undetermined Significance (ASC-US) Infection: CANCELED [facility] - Comment:Result canceled by t he ancillary COMMENTS [facility] - Comment: This Pap test has been evaluated with computer assisted technology. Suggest clinical correlation and follow-up as clinically appropriate Medical Physics Teacher [facility] - Comment: DARON, CT(ASCP) CT screening location: [place] [address] Administration [place] [address] Review stakeholder manager CANCELED [facility] - Comment:Result canceled by t caden ancillary Pathologist [facility] - Comment: Bud Johnson M.D., Board Certified in Anatomic Pathology and Cytopathology. (electronic signature) Comment [facility] - Comment: EXPLANATORY NOTE: The Pap is a screening test for cervical cancer. It is not a diagnostic test and is subject to false negative and false positive results. It is most reliable when a satisfactory sample, regularly obtained, is submitted with relevant clinical findings and history, and when the Pap result is evaluated along with historic and current clinical information. 08/30/2017 10:0 3 AM CDT 08/31/2017 4:08 AM CDT Narrative Resulting Agency Comment Performing Organization Information: ?Site ID: ?Name: [facility] ?Address: Counts include [address] beds at the [facility] Administration [place] [address] ?Director: Jeremias Garcia MD Andrea Addison MD LAB PATHOLOGY ORDERABLES F inal Result [facility] [place] documented in this encounter Visit Diagnoses Diagnosis Well woman exam- Primary Routine general medical examination at a health care facility Cervical high risk HPV (human papillomavirus) test positive Cervical high risk human papillomavirus (HPV) DNA test positive Epigastric pain Abdominal pain, epigastric Diarrhea, unspecified type documented in this encounter Discontinued Medications Medication Sig Discontinue Reason Start Date End Da te etonogestrel-ethinyl estradiol (NUVARING) 0.12-0.015 mg/24 hr vaginal ring Insert vaginally and leave in place for 3 consecutive weeks, then remove for 1 week. Therapy completed 03/11/2017 08/30/2017 documented as of this encounter Care Teams Benefits Clerk Relationship Specialty Start Date End Date Carmen Brown MD PCP - General Family Practice 11/02/16 06/02/22 documented as of this encounter
--- OUTSIDE RECORDS SUMMARY | 2024-06-09 08:01 | XMS_ITS | Encounter Summary ---
Author Organization [facility] Address [address] [place] [address] Care Team Providers Care Rate Quoting Operator Name Role Phone Carmen Brown MD Primary Care Provider [phone] Reason for Visit * Reason Onset Date Comments BOOKY Problem 10/12/2017 Encounter Details Date Type Department Care Team (Late st Contact Info) Description 10/12/2017 Telephone [facility] [address] [facility] [address] [place] [phone] Gaby Arzola MA BOOKY Problem Social History Tobacco Use Types Packs/Day Years Used Date Smoking Tobacco: Never Smokeless Tobacco: Never Alcohol Use Standard Drinks/Week Comments Yes 0 (1 standard drink = 0.6 oz pur e alcohol) Rare Comments No Sex and Gender Information Value Date Recorded Sex Assigned at Not on file Legal Sex Female 3:43 AM BUILDING GUARD DEPUTY SHERIFF Gender Identity Not on file Sexual Orientation Not on file documented as of this encounter Miscellaneous Notes * Telephone Encounter - Gaby Arzola MA - 10/12/2017 12:04 PM CDT Patient is scheduled for Colposcopy on 10/18/17, next Tuesday. She states she is still breast feeding and thinks she might start her period on Tuesday. Patient advised to Contact office on Tuesday to update to see if she needs to reschedule. documented in this encounter Plan of Treatment Upcoming Encounters Date Type Department Care Team (Latest Contact Info) Description 07/25/2024 12:30 PM BUILDING GUARD DEPUTY SHERIFF Hospital Encounter [facility] [address] [place] [address] Yves Krishna MD [address] [facility] [address] [place] [address] 07/25/2024 12:30 PM BUILDING GUARD DEPUTY SHERIFF - 07/25/2024 1:25 PM BUILDING GUARD DEPUTY SHERIFF Surgery [facility] [address] [place] [address] Yves Krishna MD [address] [facility] [address] [place] [address] ESOPHAGOGASTRODUODENOSCOPY Scheduled Procedures Name Priority Associated Diagnoses Date/Ti me ESOPHAGOGASTRODUODENOSCOPY Epigastric pain Diarrhea, unspecified type 07/25/2024 12:30 PM BUILDING GUARD DEPUTY SHERIFF COLONOSCOPY Epigastric pain Diarrhea, unspecified type 07/25/2024 12:30 PM BUILDING GUARD DEPUTY SHERIFF documented as of this encounter Visit Diagnoses Not on filedocumented in this encounter Care Teams Rate Quoting Operator Relationship Specialty Start Date End Date Carmen Brown MD PCP - General Family Practice 11/02/16 06/02/22 documented as of this encounter
--- OUTSIDE RECORDS SUMMARY | 2024-06-09 08:01 | XMS_ITS | Encounter Summary ---
Author Organization [facility] Address [address] [facility] [address] [place] [address] Care Team Providers Care Bladder Cleaner Name Role Phone Carmen Brown MD Primary Care Provider Encounter Details Date Type Department Care Team (Late st Contact Info) Description 12/01/2018 Telephone [facility] [address] [facility] [address] [place] [address] Wilda Franz LPN Social History Tobacco Use Types Packs/Day Years Used Date Smoking Tobacco: Never Smokeless Tobacco: Never Alcohol Use Standard Drinks/Week Comments Yes 0 (1 standard drink = 0.6 oz pur e alcohol) Rare Comments No Sex and Gender Information Value Date Recorded Sex Assigned at Not on file Legal Sex Female 3:43 AM PROMOTIONS EXECUTIVE Gender Identity Not on file Sexual Orientation Not on file documented as of this encounter Miscellaneous Notes * Telephone Encounter - Wilda Franz LPN - 12/01/2018 3:56 PM CDT Error documented in this encounter Plan of Treatment Upcoming Encounters Date Type Department Care Team (Latest Contact Info) Description 07/25/2024 12:30 PM PROMOTIONS EXECUTIVE Hospital Encounter [facility] 1 [place] [address] Yves Krishna MD [address] [place] [address] [address] [place] [address] 07/25/2024 12:30 PM PROMOTIONS EXECUTIVE - 07/25/2024 1:25 PM PROMOTIONS EXECUTIVE Surgery [facility] 1 [place] [address] Yves Krishna MD [address] [place] [address] [place] [address] ESOPHAGOGASTRODUODENOSCOPY Scheduled Procedures Name Priority Associated Diagnoses Date/Ti me ESOPHAGOGASTRODUODENOSCOPY Epigastric pain Diarrhea, unspecified type 07/25/2024 12:30 PM PROMOTIONS EXECUTIVE COLONOSCOPY Epigastric pain Diarrhea, unspecified type 07/25/2024 12:30 PM PROMOTIONS EXECUTIVE documented as of this encounter Visit Diagnoses Not on filedocumented in this encounter Care Teams Bladder Cleaner Relationship Specialty Start Date End Date Carmen Brown MD PCP - General Family Practice 11/02/16 06/02/22 documented as of this encounter
--- OUTSIDE RECORDS SUMMARY | 2024-06-09 08:01 | XMS_ITS | Encounter Summary ---
Author Organization [facility] Address [address] [place] [address] Care Team Providers Care Grease Buffer Name Role Phone Carmen Brown MD Primary Care Provider [phone] Reason for Referral * Diagnostic Lab (Routine) - Closed Specialty Diagnoses / Procedures Referred By Contac t Referred To Contact Lab Diagnoses History of abnormal cervical Pap smear Procedures Pap IG, HPV-hr Radha Sun NP Phone: tel: fax: Referral ID Status Reason Start Date Expiration Date Visits Re quested Visits Authorized [id number] Closed 06/02/2018 12/12/2019 1 1 OW WORKER HELPER Reason for Visit * Reason Comments 6 month repap Encounter Details Date Type Department Care Team (Late st Contact Info) Description 06/02/2018 3:00 PM BARROW WORKER HELPER Office Visit [facility] [address] [facility] [address] [place] [address] Radha Sun NP [address] [place] [address] [address] [place] [address] History of abnormal cervical Pap smear (Primary Dx) Social History Tobacco Use Types Packs/Day Years Used Date Smoking Tobacco: Never Smokeless Tobacco: Never Alcohol Use Standard Drinks/Week Comments Yes 0 (1 standard drink = 0.6 oz pur e alcohol) Rare Comments No Sex and Gender Information Value Date Recorded Sex Assigned at Not on file Legal Sex Female 3:43 AM BARROW WORKER HELPER Gender Identity Not on file Sexual Orientation Not on file documented as of this encounter Last Filed Vital Signs Vital Sign Reading Time Taken Comments Blood Pressure 112/66 06/02/2018 1:58 PM BARROW WORKER HELPER Pulse - - Temperature - - Respiratory Rate - - Oxygen Saturation - - Inhaled Oxygen Concentration - - Weight 73 kg (161 lb) 06/02/2018 1:58 PM BARROW WORKER HELPER Height - - Body Mass Index 28.52 10/18/2017 1:48 PM CDT documented in this encounter Progress Notes * Radha Sun, HEALTH AND FITNESS PROFESSOR - 06/02/2018 3:00 PM CST Standard Office Visit Note Subjective: HPI: Shalonda Constantino is a 32 y.o. 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 I have reviewed: allergies, current medications, past medical history, past surgical history and problem list Review of Systems: Review of Systems Objective: Vitals: 06/02/18 1358 BP: 112/66 Weight: 161 lb (73 kg) Body mass index is 28.52 kg/m??. Physical Exam Constitutional: She is oriented to person, place, and time. She appears well- developed and well-nourished. Cardiovascular: Normal rate and regular rhythm. Pulmonary/Chest: Effort normal. Abdominal: Soft. Genitourinary: Vagina normal and uterus normal. Pelvic exam was performed with patient supine. There is no lesion on the right labia. There is no lesion on the left labia. Cervix exhibits no motion tenderness, no discharge and no friability. Right adnexum displays no tenderness. Left adnexum displays no tenderness. No vaginal discharge found. Lymphadenopathy: Right: No inguinal adenopathy present. Left: No inguinal adenopathy present. Neurological: She is alert and oriented to person, place, and time. Skin: Skin is warm and dry. Psychiatric: She has a normal mood and affect. Her behavior is normal. Vitals reviewed. Assessment/Plan: Diagnoses and all orders for this visit: History of abnormal cervical Pap smear (Primary) Comments: Await pap results; continue Nuvaring; call office with any gyne health issues; RTO in 6 months for a WWE/pap. Orders: - Pap IG, HPV-hr; Future Radha Sun NP OW WORKER HELPER documented in this encounter Plan of Treatment Upcoming Encounters Date Type Department Care Team (Latest Contact Info) Description 07/25/2024 12:30 PM BARROW WORKER HELPER Hospital Encounter [facility] 1 [place] [address] Yves Krishna MD [address] [facility] [address] [place] [address] 07/25/2024 12:30 PM BARROW WORKER HELPER - 07/25/2024 1:25 PM BARROW WORKER HELPER Surgery [address] [address] Yves Krishna MD [address] [facility] [address] [place] [address] ESOPHAGOGASTRODUODENOSCOPY Scheduled Procedures Name Priority Associated Diagnoses Date/Ti me ESOPHAGOGASTRODUODENOSCOPY Epigastric pain Diarrhea, unspecified type 07/25/2024 12:30 PM BARROW WORKER HELPER COLONOSCOPY Epigastric pain Diarrhea, unspecified type 07/25/2024 12:30 PM BARROW WORKER HELPER documented as of this encounter Procedures Procedure Name Priority Date/Time Associated Diagnosis Comments PAP IG, HPV-HR Routine 06/02/2018 History of abnormal cervical Pap smear documented in this encounter Results * Pap IG, HPV-hr (06/02/2018) Endocervical 06/02/2018 us Radha Sun HEALTH AND FITNESS PROFESSOR LAB PATHOLOGY ORDERABLES Final Result EXTERNAL LAB documented in this encounter Visit Diagnoses Diagnosis History of abnormal cervical Pap smear- Primary Epigastric pain Abdominal pain, epigastric Diarrhea, unspecified type documented in this encounter Care Teams Grease Buffer Relationship Specialty Start Date End Date Carmen Brown MD PCP - General Family Practice 11/02/16 06/02/22 documented as of this encounter
--- OUTSIDE RECORDS SUMMARY | 2024-06-09 08:01 | XMS_ITS | Encounter Summary ---
Author Organization [facility] Address [address] [facility] [address] [place] [address] Care Team Providers Care Beater Head Name Role Phone Carmen Brown MD Primary Care Provider [phone] Encounter Details Date Type Department Care Team (Late st Contact Info) Description 12/13/2016 Orders Only [facility] [address] [facility] [address] [place] [phone] Andrea Addison MD [address] [facility] [address] [place] [address] Social History Tobacco Use Types Packs/Day Years Used Date Smoking Tobacco: Never Comments Yes Sex and Gender Information Value Date Recorded Sex Assigned at Not on file Legal Sex Female 3:43 AM ASSISTANT PROFESSOR OF RADIOLOGY Gender Identity Not on file Sexual Orientation Not on file documented as of this encounter Plan of Treatment Upcoming Encounters Date Type Department Care Team (Latest Contact Info) Description 07/25/2024 12:30 PM ASSISTANT PROFESSOR OF RADIOLOGY Hospital Encounter [address] [address] Yves Krishna MD [address] [facility] [address] [place] [address] 07/25/2024 12:30 PM ASSISTANT PROFESSOR OF RADIOLOGY - 07/25/2024 1:25 PM ASSISTANT PROFESSOR OF RADIOLOGY Surgery [address] [address]Yves Franklin MD [address] [facility] [address] [place] [address] ESOPHAGOGASTRODUODENOSCOPY Scheduled Procedures Name Priority Associated Diagnoses Date/Ti me ESOPHAGOGASTRODUODENOSCOPY Epigastric pain Diarrhea, unspecified type 07/25/2024 12:30 PM ASSISTANT PROFESSOR OF RADIOLOGY COLONOSCOPY Epigastric pain Diarrhea, unspecified type 07/25/2024 12:30 PM ASSISTANT PROFESSOR OF RADIOLOGY documented as of this encounter Procedures Procedure Name Priority Date/Time Associated Diagnosis Comments GROUP B STREPTOCOCCUS CULTURE Routine 12/13/2016 12:00 AM CDT documented in this encounter Results * Group B streptococcal culture (12/13/2016 12:00 AM CDT) Strep B culture, resp SEE NOTE [facility] - Comment: ??STREPTOCOCCUS, GROUP B CULTURE ?MICRO NUMBER: ?[id number] ??TEST STATUS: ? FINAL ??SPECIMEN SOURCE: ?? VAGINAL/ANORECTAL ??SPECIMEN QUALITY: ??ADEQUATE ??RESULT: ?No group B Streptococcus isolated 12/13/2016 12/14/2016 1:3 2 AM CDT Narrative [facility] - 12/16/2016 7:26 AM CDT FASTING: UNKNOWN Resulting Agency Comment Performing Organization Information: ?Site ID: ?Name: [facility] ?Address: [facility] [place] [address] ?Director: Jeremias Garcia MD Andrea Addison MD LAB MICROBIOLOGY - GENERAL ORDERABLES Final Result [facility] - [address] documented in this encounter Visit Diagnoses Not on filedocumented in this encounter Care Teams Beater Head Relationship Specialty Start Date End Date Carmen Brown MD PCP - General Family Practice 11/02/16 06/02/22 documented as of this encounter
--- OUTSIDE RECORDS SUMMARY | 2024-06-09 08:01 | XMS_ITS | Encounter Summary ---
Author Organization [facility] Medical [facility] Address [address] [facility] [address] [place] [address] Care Team Providers Care Assembler Movement Name Role Phone Carmen Brown MD Primary Care Provider Reason for Visit * Reason Comments Routine Visit Encounter Details Date Type Department Care Team (Late st Contact Info) Description 01/10/2017 8:45 AM CDT Routine [facility] [address] [place] [address] [address] [place] [phone] Andrea Addison MD [address] [place] [address] [address] [place] [address] care, subsequent , third trimester (Primary Dx); 39 weeks gestation of Social History Tobacco Use Types Packs/Day Years Used Date Smoking Tobacco: Never Smokeless Tobacco: Never Alcohol Use Standard Drinks/Week Comments No 0 (1 standard drink = 0.6 oz pur e alcohol) Comments Yes Sex and Gender Information Value Date Recorded Sex Assigned at Not on file Legal Sex Female 3:43 AM BINDER COVERSTITCH Gender Identity Not on file Sexual Orientation Not on file documented as of this encounter Last Filed Vital Signs Vital Sign Reading Time Taken Comments Blood Pressure 120/84 01/10/2017 9:05 AM CDT Pulse - - Temperature - - Respiratory Rate - - Oxygen Saturation - - Inhaled Oxygen Concentration - - Weight 81.6 kg (180 lb) 01/10/2017 9:05 AM CDT Height 160 cm (5' 3 ) 01/10/2017 9:05 AM CDT Body Mass Index 31.89 01/10/2017 9:05 AM CDT documented in this encounter Progress Notes * Andrea Addison MD - 01/10/2017 8:45 AM CDT Occas. Cntxs, S=D, EFW: 7#, labor instructions. I offered induction. documented in this encounter Plan of Treatment Upcoming Encounters Date Type Department Care Team (Latest Contact Info) Description 07/25/2024 12:30 PM BINDER COVERSTITCH Hospital Encounter [address] [address] Yves Krishna MD [address] [place] [address] [address] [place] [address] 07/25/2024 12:30 PM BINDER COVERSTITCH - 07/25/2024 1:25 PM BINDER COVERSTITCH Surgery [address] [address] Yves Krishna MD [address] [place] [address] [address] [place] [address] ESOPHAGOGASTRODUODENOSCOPY Scheduled Procedures Name Priority Associated Diagnoses Date/Ti me ESOPHAGOGASTRODUODENOSCOPY Epigastric pain Diarrhea, unspecified type 07/25/2024 12:30 PM BINDER COVERSTITCH COLONOSCOPY Epigastric pain Diarrhea, unspecified type 07/25/2024 12:30 PM BINDER COVERSTITCH documented as of this encounter Procedures Procedure Name Priority Date/Time Associated Diagnosis Comments POCT URINALYSIS DIPSTICK Routine 01/10/2017 9:07 AM CDT care, subsequent , third trimester documented in this encounter Results * (ABNORMAL) POCT urinalysis dipstick (01/10/2017 9:07 AM CDT) Glucose, ur, POC Negative mmol/L Protein, ur, POC 1+ mg/dL Lot Number [id number] Urine 01/10/2017 9:07 AM CDT Andrea Addison MD POINT OF CARE TEST ORDERAB LES Final Result documented in this encounter Visit Diagnoses Diagnosis care, subsequent , third trimester- Primary 39 weeks gestation of Epigastric pain Abdominal pain, epigastric Diarrhea, unspecified type documented in this encounter Discontinued Medications Medication Sig Discontinue Reason Start Date End Da te etonogestrel-ethinyl estradiol (NUVARING) 0.12-0.015 mg/24 hr vaginal ring insert 1 vaginal ring by vaginal route every month leave in place for 3 weeks, remove for 1 week Therapy completed 04/23/2015 01/10/2017 sertraline (ZOLOFT) 25 mg tablet take 1 tablet by oral route every morning Therapy completed 04/21/2016 01/10/2017 documented as of this encounter Care Teams Assembler Movement Relationship Specialty Start Date End Date Carmen Brown MD PCP - General Family Practice 11/02/16 06/02/22 documented as of this encounter
--- OUTSIDE RECORDS SUMMARY | 2024-06-09 08:01 | XMS_ITS | Encounter Summary ---
Author Organization [facility] Medical [facility] Address [address] [facility] [address] [place] [address] Care Team Providers Care Branch Associate Teller Name Role Phone Carmen Brown MD Primary Care Provider [phone] Reason for Visit * Reason Onset Date Comments Pap 03/10/2017 Encounter Details Date Type Department Care Team (Late st Contact Info) Description 03/10/2017 Telephone [facility] 4 [facility] [address] [place] [phone] Vernell Jasso RN Pap Social History Tobacco Use Types Packs/Day Years Used Date Smoking Tobacco: Never Smokeless Tobacco: Never Alcohol Use Standard Drinks/Week Comments No 0 (1 standard drink = 0.6 oz pur e alcohol) Comments No Sex and Gender Information Value Date Recorded Sex Assigned at Not on file Legal Sex Female 3:43 AM EVENT SECURITY OFFICER Gender Identity Not on file Sexual Orientation Not on file documented as of this encounter Miscellaneous Notes * Telephone Encounter - Vernell Jasso RN - 03/10/2017 10:20 AM CDT Pt aware that her PP pap was WNL. Pt already has a repap appt made for 08-30-17 documented in this encounter Plan of Treatment Upcoming Encounters Date Type Department Care Team (Latest Contact Info) Description 07/25/2024 12:30 PM EVENT SECURITY OFFICER Hospital Encounter [facility] 1 [place] [address] Yves Krishna MD [address] [place] [address] [address] [place] [address] 07/25/2024 12:30 PM EVENT SECURITY OFFICER - 07/25/2024 1:25 PM EVENT SECURITY OFFICER Surgery [facility] [address] [place] [address] Yves Krishna MD [address] [facility] [address] [place] [address] ESOPHAGOGASTRODUODENOSCOPY Scheduled Procedures Name Priority Associated Diagnoses Date/Ti in ESOPHAGOGASTRODUODENOSCOPY Epigastric pain Diarrhea, unspecified type 07/25/2024 12:30 PM EVENT SECURITY OFFICER COLONOSCOPY Epigastric pain Diarrhea, unspecified type 07/25/2024 12:30 PM EVENT SECURITY OFFICER documented as of this encounter Visit Diagnoses Not on filedocumented in this encounter Care Teams Branch Associate Teller Relationship Specialty Start Date End Date Carmen Brown MD PCP - General Family Practice 11/02/16 06/02/22 documented as of this encounter
--- OUTSIDE RECORDS SUMMARY | 2024-06-09 08:01 | XMS_ITS | Encounter Summary ---
Author Organization [facility] Medical [facility] Address [address] [facility] [address] [place] [address] Care Team Providers Care Aerospace Project Engineer Name Role Phone Carmen Brown MD Primary Care Provider [phone] Reason for Referral * OBGYN (Routine) - Closed Specialty Diagnoses / Procedures Referred By Contac t Referred To Contact Diagnoses ASCUS with positive high risk HPV cervical Procedures Colposcopy Andrea Addison MD Phone: tel: fax: Referral ID Status Reason Start Date Expiration Date Visits Re quested Visits Authorized [id number] Closed 10/18/2017 04/16/2018 1 1 Reason for Visit * Reason Comments Procedure Colpo Encounter Details Date Type Department Care Team (Late st Contact Info) Description 10/18/2017 1:30 PM CDT Procedure visit [facility] 4 [facility] [address] [place] [address] Andrea Addison MD [address] [place] [address] [address] [place] [address] ASCUS with positive high risk HPV cervical (Primary Dx); Anemia, unspecified type Social History Tobacco Use Types Packs/Day Years Used Date Smoking Tobacco: Never Smokeless Tobacco: Never Alcohol Use Standard Drinks/Week Comments Yes 0 (1 standard drink = 0.6 oz pur e alcohol) Rare Comments No Sex and Gender Information Value Date Recorded Sex Assigned at Not on file Legal Sex Female 3:43 AM SPRAY DRIER Gender Identity Not on file Sexual Orientation Not on file documented as of this encounter Last Filed Vital Signs Vital Sign Reading Time Taken Comments Blood Pressure 114/68 10/18/2017 1:48 PM CDT Pulse - - Temperature - - Respiratory Rate - - Oxygen Saturation - - Inhaled Oxygen Concentration - - Weight 72.1 kg (159 lb) 10/18/2017 1:48 PM CDT Height 160 cm (5' 3 ) 10/18/2017 1:48 PM CDT Body Mass Index 28.17 10/18/2017 1:48 PM CDT documented in this encounter Progress Notes * Andrea Addison MD - 10/18/2017 1:30 PM CDTAssociated Order(s): COLPOSCOPY Post-Procedure Diagnose(s): ASCUS with positive high risk HPV cervical Images from the original note were not included. Procedure Note Shalonda Constantino is a 32 y.o. female who presents for colpo for ASCUS pap with postive HR HPV while in 04/2016 at which time she declined colpo. She then had a normal pap pp in 2016. She had another ASCUS, positive HR HPV in August of this year. No c/os. BP 114/68 (BP Location: Left arm, Patient Position: Sitting) Ht 160 cm (5' 3 ) Wt 159 lb (72.1 kg) LMP 10/18/2017 BMI 28.17 kg/m?? Colposcopy/Procedures Date/Time: 10/18/2017 3:09 PM Performed by: ANDREA ADDISON Authorized by: ANDREA ADDISON Consent given by: patient Verbal consent obtained: Verbal consent obtained Written consent obtained: written consent obtained Risks, alternatives, and questions discussed: yes Pre-procedure: Prepped with: acetic acid Indication: Indication: ASC-US and HPV Procedure: Procedure: Colposcopy w/ biopsy of cervix [place] speculum was placed in the vagina: yes Under colposcopic examination the transition zone was seen in entirety: yes Cervical biopsy performed with a cervical biopsy punch: yes Monsel's solution was applied: yes Biopsy(s): yes Location: 12:00 (larger piece) and 6:00 as one specimen Specimen to pathology: yes Post-procedure: Findings: White epithelium Impression: Low grade cervical dysplasia Patient tolerance of procedure: Patient tolerated the procedure well with no immediate complications Physical Exam Constitutional: She appears well-developed and well-nourished. Genitourinary: Vagina normal. There is no lesion on the right labia. There is no lesion on the leftlabia. Cervix exhibits no motion tenderness and no discharge. Psychiatric: She has a normal mood and affect. Her behavior is normal. Diagnoses and all orders for this visit: ASCUS with positive high risk HPV cervical (Primary) Comments: Will call with results. Anemia, unspecified type Comments: Check CBC; patient is also bruising easily x 5 areas of her LE. Orders: - CBC with auto differential; Future Other orders - Colposcopy Return in about 6 months (around 04/20/2018) for repeat pap. documented in this encounter Plan of Treatment Upcoming Encounters Date Type Department Care Team (Latest Contact Info) Description 07/25/2024 12:30 PM SPRAY DRIER Hospital Encounter [address] [address] Yves Krishna MD [address] [facility] [address] [place] [address] 07/25/2024 12:30 PM SPRAY DRIER - 07/25/2024 1:25 PM SPRAY DRIER Surgery [address] [address] Yves Krishna MD [address] [facility] [address] [place] [address] ESOPHAGOGASTRODUODENOSCOPY Scheduled Orders Name Type Priority Associated Diagnoses Orde r Schedule CBC with auto differential Lab Routine Anemia, unspecified type 1 Occurrences starting 10/18/2017 until 10/18/2018 Scheduled Procedures Name Priority Associated Diagnoses Date/Ti me ESOPHAGOGASTRODUODENOSCOPY Epigastric pain Diarrhea, unspecified type 07/25/2024 12:30 PM SPRAY DRIER COLONOSCOPY Epigastric pain Diarrhea, unspecified type 07/25/2024 12:30 PM SPRAY DRIER documented as of this encounter Procedures Procedure Name Priority Date/Time Associated Diagnosis Comments [place] COLPOSCOPY CERVIX UPPR/ADJCNT VAGINA W/CERVIX BX Routine 10/18/2017 1:30 PM CDT ASCUS with positive high risk HPV cervical documented in this encounter Results * [place] COLPOSCOPY CERVIX UPPR/ADJCNT VAGINA W/CERVIX BX (10/18/2017 1:30 PM CDT) Narrative Andrea Addison MD - 10/18/2017 1:30 PM CDT Andrea Addison MD ? 10/18/2017 ??3:18 PM Colposcopy/Procedures Date/Time: 10/18/2017 3:09 PM Performed by: ANDREA ADDISON Authorized by: ANDREA ADDISON Consent given by: patient Verbal consent obtained: Verbal consent obtained Written consent obtained: written consent obtained Risks, alternatives, and questions discussed: yes Pre-procedure: ??Prepped with: acetic acid ?? Indication: ??Indication: ??ASC-US and HPV Procedure: ??Procedure: Colposcopy w/ biopsy of cervix ?[place] speculum was placed in the vagina: yes ?Under colposcopic examination the transition zone was seen in entirety: yes ?Cervical biopsy performed with a cervical biopsy punch: yes ?Monsel's solution was applied: yes ?Biopsy(s): yes ?Location: ??12:00 (larger piece) and 6:00 as one specimen ??Specimen to pathology: yes ?? Post-procedure: ??Findings: White epithelium ?Impression: Low grade cervical dysplasia ?Patient tolerance of procedure: ??Patient tolerated the procedure well with no immediate complications us Andrea Addison MD IN CLINIC/BEDSIDE ORDERABL ES Final Result documented in this encounter Visit Diagnoses Diagnosis ASCUS with positive high risk HPV cervical- Primary Anemia, unspecified type Epigastric pain Abdominal pain, epigastric Diarrhea, unspecified type documented in this encounter Discontinued Medications Medication Sig Discontinue Reason Start Date End Da te no.[id number] (WHITEPRINTING MACHINE OPERATOR-PNV-DHA) 28 mg iron- 1 mg-200 mg capsule take 1 capsule by oral route every day Therapy completed 07/06/2016 10/18/2017 documented as of this encounter Care Teams Aerospace Project Engineer Relationship Specialty Start Date End Date Carmen Brown MD PCP - General Family Practice 11/02/16 06/02/22 documented as of this encounter
--- OUTSIDE RECORDS SUMMARY | 2024-06-09 08:01 | XMS_ITS | Encounter Summary ---
Author Organization [facility] Medical [facility] Address [address] [facility] [address] [place] [address] Care Team Providers Care Hydroelectric Plant Technician Name Role Phone Carmen Brown MD Primary Care Provider Reason for Visit * Reason Onset Date Comments NuvaRing 04/07/2018 Encounter Details Date Type Department Care Team (Late st Contact Info) Description 04/07/2018 Telephone [facility] [address] [facility] [address], [place] [address] Vernell Jasso, RN NuvaRing Social History Tobacco Use Types Packs/Day Years Used Date Smoking Tobacco: Never Smokeless Tobacco: Never Alcohol Use Standard Drinks/Week Comments Yes 0 (1 standard drink = 0.6 oz pur e alcohol) Rare Comments No Sex and Gender Information Value Date Recorded Sex Assigned at Not on file Legal Sex Female 3:43 AM SOLE LAYER Gender Identity Not on file Sexual Orientation Not on file documented as of this encounter Ordered Prescriptions Prescription Sig Dispense Quantity Refills Last Filled Start Date End Date etonogestrel-ethin yl estradiol (NUVARING) 0.12-0.015 mg/24 hr vaginal ring Insert vaginally and leave in place for 3 consecutive weeks, then remove for 1 week. 1 each 4 04/07/2018 9 documented in this encounter Miscellaneous Notes * Telephone Encounter - Vernell Jasso RN - 04/07/2018 2:54 PM CDT Pt called today requesting NuvaRing refill. She is still nursing, but states it is established and would like to try it. OK Per YanniT. Erx'ed. documented in this encounter Plan of Treatment Upcoming Encounters Date Type Department Care Team (Latest Contact Info) Description 07/25/2024 12:30 PM SOLE LAYER Hospital Encounter [facility] 1 [place] [address] Yves Krishna MD [address] [facility] [address] [place] [address] 07/25/2024 12:30 PM SOLE LAYER - 07/25/2024 1:25 PM SOLE LAYER Surgery [address] [address] Yves Krishna MD [address] [facility] [address] [place] [address] ESOPHAGOGASTRODUODENOSCOPY Scheduled Procedures Name Priority Associated Diagnoses Date/Ti wy ESOPHAGOGASTRODUODENOSCOPY Epigastric pain Diarrhea, unspecified type 07/25/2024 12:30 PM SOLE LAYER COLONOSCOPY Epigastric pain Diarrhea, unspecified type 07/25/2024 12:30 PM SOLE LAYER documented as of this encounter Visit Diagnoses Not on filedocumented in this encounter Care Teams Hydroelectric Plant Technician Relationship Specialty Start Date End Date Carmen Brown MD PCP - General Family Practice 11/02/16 06/02/22 documented as of this encounter
--- OUTSIDE RECORDS SUMMARY | 2024-06-09 08:01 | XMS_ITS | Encounter Summary ---
Author Organization [facility] Medical [facility] Address [address] [facility] [address] [place] [address] Care Team Providers Care Cloth Mender Name Role Phone Carmen Brown MD Primary Care Provider Reason for Visit * Reason Onset Date Comments Induction 01/10/2017 Encounter Details Date Type Department Care Team (Late st Contact Info) Description 01/10/2017 Telephone [facility] [address] [facility] [address] [place] [phone] Gaby Arzola MA Induction Social History Tobacco Use Types Packs/Day Years Used Date Smoking Tobacco: Never Smokeless Tobacco: Never Alcohol Use Standard Drinks/Week Comments No 0 (1 standard drink = 0.6 oz pur e alcohol) Comments Yes Sex and Gender Information Value Date Recorded Sex Assigned at Not on file Legal Sex Female 3:43 AM STACKER OPERATOR Gender Identity Not on file Sexual Orientation Not on file documented as of this encounter Miscellaneous Notes * Telephone Encounter - Gaby Arzola MA - 01/10/2017 5:03 PM CDT Patient is scheduled for induction 01/11/2017 @ [facility] 7am, spoke with Sherry. [facility] faxed to [facility]. [facility] per protocol. documented in this encounter Plan of Treatment Upcoming Encounters Date Type Department Care Team (Latest Contact Info) Description 07/25/2024 12:30 PM STACKER OPERATOR Hospital Encounter [facility] 1 [place] [address] Yves Krishna MD [address] [facility] [address] [place] [address] 07/25/2024 12:30 PM STACKER OPERATOR - 07/25/2024 1:25 PM STACKER OPERATOR Surgery [facility] 1 [place] [address] Yves Krishna MD [address] [place] [address] [address] [place] [address] ESOPHAGOGASTRODUODENOSCOPY Scheduled Procedures Name Priority Associated Diagnoses Date/Ti me ESOPHAGOGASTRODUODENOSCOPY Epigastric pain Diarrhea, unspecified type 07/25/2024 12:30 PM STACKER OPERATOR COLONOSCOPY Epigastric pain Diarrhea, unspecified type 07/25/2024 12:30 PM STACKER OPERATOR documented as of this encounter Visit Diagnoses Not on filedocumented in this encounter Care Teams Cloth Mender Relationship Specialty Start Date End Date Carmen Brown MD PCP - General Family Practice 11/02/16 06/02/22 documented as of this encounter
--- OUTSIDE RECORDS SUMMARY | 2024-06-09 08:01 | XMS_ITS | Encounter Summary ---
Author Organization [facility] Medical [facility] Address [address] [facility] [address] [place] [address] Care Team Providers Care Sugar Refiner Name Role Phone Carmen Brown MD Primary Care Provider [phone] Encounter Details Date Type Department Care Team (Late st Contact Info) Description 06/12/2018 Telephone [facility] [address] [facility] [address] [place] [address] Wilda Franz LPN Social History Tobacco Use Types Packs/Day Years Used Date Smoking Tobacco: Never Smokeless Tobacco: Never Alcohol Use Standard Drinks/Week Comments Yes 0 (1 standard drink = 0.6 oz pur e alcohol) Rare Comments No Sex and Gender Information Value Date Recorded Sex Assigned at Not on file Legal Sex Female 3:43 AM COMPENSATION ADMINISTRATOR Gender Identity Not on file Sexual Orientation Not on file documented as of this encounter Miscellaneous Notes * Telephone Encounter - Wilda Franz LPN - 06/12/2018 12:00 PM COMPENSATION ADMINISTRATOR Patient made aware of recent pap results she voiced understanding and a 6 month repap/well woman appointment made. ENSATION ADMINISTRATOR documented in this encounter Plan of Treatment Upcoming Encounters Date Type Department Care Team (Latest Contact Info) Description 07/25/2024 12:30 PM COMPENSATION ADMINISTRATOR Hospital Encounter [facility] 1 [place] [address] Yves Krishna MD [address] [place] [address] [address] [place] [address] 07/25/2024 12:30 PM COMPENSATION ADMINISTRATOR - 07/25/2024 1:25 PM COMPENSATION ADMINISTRATOR Surgery [facility] 1 [place] [address] Yves Krishna MD [address] [place] [address] [place] [address] ESOPHAGOGASTRODUODENOSCOPY Scheduled Procedures Name Priority Associated Diagnoses Date/Ti me ESOPHAGOGASTRODUODENOSCOPY Epigastric pain Diarrhea, unspecified type 07/25/2024 12:30 PM COMPENSATION ADMINISTRATOR COLONOSCOPY Epigastric pain Diarrhea, unspecified type 07/25/2024 12:30 PM COMPENSATION ADMINISTRATOR documented as of this encounter Visit Diagnoses Not on filedocumented in this encounter Care Teams Sugar Refiner Relationship Specialty Start Date End Date Carmen Brown MD PCP - General Family Practice 11/02/16 06/02/22 documented as of this encounter
--- OUTSIDE RECORDS SUMMARY | 2024-06-09 08:01 | XMS_ITS | Encounter Summary ---
Author Organization [facility] Healthcare Address [address] [place] [address] Care Team Providers Care Slitting Machine Operator Name Role Phone Gwen Calero Primary Care Prov ider Encounter Details Date Type Department Care Team (Late st Contact Info) Description 06/03/2022 9:10 AM ON AIR TALENT Lab [address] [address] Social History Tobacco Use Types Packs/Day Years Used Date Smoking Tobacco: Never Smokeless Tobacco: Never Alcohol Use Standard Drinks/Week Comments Yes 0 (1 standard drink = 0.6 oz pur e alcohol) Rare Comments No Sex and Gender Information Value Date Recorded Sex Assigned at Not on file Legal Sex Female 3:43 AM ON AIR TALENT Gender Identity Not on file Sexual Orientation Not on file documented as of this encounter Plan of Treatment Upcoming Encounters Date Type Department Care Team (Latest Contact Info) Description 07/25/2024 12:30 PM ON AIR TALENT Hospital Encounter [address] [address] Yves Krishna MD 4 [facility] [place] [address] 07/25/2024 12:30 PM ON AIR TALENT - 07/25/2024 1:25 PM ON AIR TALENT Surgery [address] [address] Yves Krishna MD 4 [facility] [place] [address] ESOPHAGOGASTRODUODENOSCOPY Scheduled Procedures Name Priority Associated Diagnoses Date/Ti me ESOPHAGOGASTRODUODENOSCOPY Epigastric pain Diarrhea, unspecified type 07/25/2024 12:30 PM ON AIR TALENT COLONOSCOPY Epigastric pain Diarrhea, unspecified type 07/25/2024 12:30 PM ON AIR TALENT documented as of this encounter Procedures Procedure Name Priority Date/Time Associated Diagnosis Comments EGFR Routine 06/03/2022 9:19 AM ON AIR TALENT DIFFERENTIAL AUTO Routine 06/03/2022 9:1 9 AM ON AIR TALENT CBC WITH AUTO DIFFERENTIAL Routine 06/03/2022 9:19 AM ON AIR TALENT TSH Routine 06/03/2022 9:19 AM ON AIR TALENT HEMOGLOBIN A1C Routine 06/03/2022 9:19 AM ON AIR TALENT LIPID PANEL Routine 06/03/2022 9:19 AM ON AIR TALENT COMPREHENSIVE METABOLIC PANEL Routine 06/03/2022 9:19 AM ON AIR TALENT documented in this encounter Results * eGFR (06/03/2022 9:19 AM ON AIR TALENT) eGFR 92 mL/min/1. 73 m2 [facility] [...] interpretive data was last reviewed 2021. Blood 06/03/2022 9:19 AM ON AIR TALENT 06/03/2022 9:56 AM ON AIR TALENT us Jerel Pinedo MD LAB BLOOD ORDERABLES Final Result [facility] ([place] [facility]) 1 [facility] [place] [address] * Differential, auto (06/03/2022 9:19 AM ON AIR TALENT) Neutrophil abs 5.3 1.7 - 6.5 K/cumm [facility] ([place]) Imm gran abs 0.0 0.0 - 0.1 K/cumm [facility] ([place]) Lymphocyte abs 2.3 0.8 - 3.3 K/cumm [facility] ([place]) Monocyte abs 0.5 0.2 - 0.8 K/cumm [facility] ([place]) Eosinophil abs 0.2 0.0 - 0.5 K/cumm [facility] ([place]) Basophil abs 0.0 0.0 - 0.1 K/cumm [facility] ([place]) Neutrophil pct 63.0 % [facility] ([place]) Comment: Interpretive Data Percent cell count reference ranges are not reported, since discordance with absolute values may lead to misinterpretation of CBC data. Current Interpretive Data was last revised on 2017. Imm gran pct 0.4 % [facility] ([place]) Comment: Interpretive Data Percent cell count reference ranges are not reported, since discordance with absolute values may lead to misinterpretation of CBC data. Current Interpretive Data was last revised on 2017. Lymphocyte pct 27.5 % [facility] ([place]) Comment: Interpretive Data Percent cell count reference ranges are not reported, since discordance with absolute values may lead to misinterpretation of CBC data. Current Interpretive Data was last revised on 2017. Monocyte pct 6.3 % [facility] ([place]) Comment: Interpretive Data Percent cell count reference ranges are not reported, since discordance with absolute values may lead to misinterpretation of CBC data. Current Interpretive Data was last revised on 2017. Eosinophil pct 2.3 % [facility] ([place]) Comment: Interpretive Data Percent cell count reference ranges are not reported, since discordance with absolute values may lead to misinterpretation of CBC data. Current Interpretive Data was last revised on 2017. Basophil pct 0.5 % [facility] ([place]) Comment: Interpretive Data Percent cell count reference ranges are not reported, since discordance with absolute values may lead to misinterpretation of CBC data. Current Interpretive Data was last revised on 2017. Blood 06/03/2022 9:19 AM ON AIR TALENT 06/03/2022 9:56 AM ON AIR TALENT Jerel Pinedo MD LAB BLOOD ORDERABLES Final Result [facility] ([facility] D) 1 [facility] Department [place] [address] * (ABNORMAL) Comprehensive metabolic panel (06/03/2022 9:19 AM ON AIR TALENT) Sodium 138 135 - 145 mmol/L [facility] ([place]) Potassium, pl 4.1 3.3 - 4.9 mmol/L [facility] ([place]) Chloride 104 97 - 110 mmol/L [facility] CO2 21(L) 22 - 32 mmol/L [facility] ([place]) Anion gap 14 2 - 15 mmol/L [facility] ([place]) BUN 10 8 - 25 mg/dL [facility] Creatinine 0.84 0.60 - 1.10 mg/dL [facility] Glucose 95 70 - 199 mg/dL [facility] ([place]) Comment: Interpretive Data Fasting glucose [...] classification and Diagnosis of Diabetes Diabetes Care 2017;40 (Suppl. 1):S11. Current interpretive data was last revised 2017. Calcium 9.0 8.5 - 10.3 mg/dL [facility] ([place]) Bilirubin, total 0.3 0.1 - 1.2 mg/dL [facility] ([place]) Protein, pl 6.6 6.5 - 8.5 g/dL [facility] ([place]) Albumin 3.9 3.5 - 5.0 g/dL [facility] ([place]) Alk phos 44 40 - 130 Units/L [facility] ([place]) ALT 20 7 - 45 Units/L [facility] ([place]) AST 18 10 - 45 Units/L [facility] ([place]) Blood 06/03/2022 9:19 AM ON AIR TALENT 06/03/2022 9:56 AM ON AIR TALENT us Jerel Pinedo MD LAB BLOOD ORDERABLES Final Result [facility] [address] [facility] Department [place] [address] * (ABNORMAL) Lipid panel (06/03/2022 9:19 AM ON AIR TALENT) Cholesterol 127 30 - 199 mg/dL [facility] ([place]) Comment: Interpretive Data Ages < or = 19 years ??Acceptable: ? <170 mg/dL ??Borderline high: ??170-199 mg/dL ??High: ? >or= 200 mg/dL Ages > or = 20 years ??Desirable: ?<200 mg/dL ??Borderline high: ??200-239 mg/dL ??High: ? >or= 240 mg/dL Literature References: 1. Expert Panel on Integrated Guidelines for Cardiovascular Health and Risk Reduction in Children and Adolescents. Pediatrics 2011;128:S213 2. NCEP Expert Panel. Circulation 2004;110:227 Current Interpretive Data was last revised on 2018. Triglycerides 190(H) <=149 mg/dL [facility] ([place]) Comment: Interpretive Data Ages < or = 9 years ??Acceptable: ? <75 mg/dL ??Borderline high: ??75-99 mg/dL ??High: ? >or= 100 mg/dL Ages 10 to 20 years ??Acceptable: ? <90 mg/dL ??Borderline high: ??90-129 mg/dL ??High: ? >or= 130 mg/dL Ages > or = 20 years ??Desirable: ?<150 mg/dL ??Borderline high: ??150-199 mg/dL ??High: ? 200-499 mg/dL ?Very high: ?? >or= 499 mg/dL Literature References: 1. Expert Panel on Integrated Guidelines for Cardiovascular Health and Risk Reduction in Children and Adolescents. Pediatrics 2011;128:S213 2. NCEP Expert Panel. Circulation 2004;110:227 Current Interpretive Data was last revised on 2018. HDL 22(L) >=40 mg/dL [facility] ([place]) Comment: Interpretive Data Ages < or = 19 years ??Acceptable: ? >45 mg/dL ??Borderline low: ?? 40-45 mg/dL ??Low: ? <40 mg/dL Ages > or = 20 years ??Desirable: ?>or= 60 mg/dL ??Low: ? <40 mg/dL Literature References: 1. Expert Panel on Integrated Guidelines for Cardiovascular Health and Risk Reduction in Children and Adolescents. Pediatrics 2011;128:S213 2. NCEP Expert Panel. Circulation 2004;110:227 Current Interpretive Data was last revised on 2018. LDL, calculated 67 <=129 mg/dL [facility] ([place]) Comment: Interpretive Data Ages < or = 19 years ??Acceptable: ? <110 mg/dL ??Borderline high: ??110-129 mg/dL ??High: ?>or= 130 mg/dL Ages > or = 20 years ??Optimal: ? <100 mg/dL ??Near optimal: ?100-129 mg/dL ??Borderline high: ?? 130-159 mg/dL ??High: ?>160 mg/dL Literature References: 1. Expert Panel on Integrated Guidelines for Cardiovascular Health and Risk Reduction in Children and Adolescents. Pediatrics 2011;128:S213 2. NCEP Expert Panel. Circulation 2004;110:227 Current Interpretive Data was last revised on 2018. Non-HDL Cholesterol 105 mg/dL [facility] ([facility] D) Comment: Interpretive Data Ages < or = 19 years ??Acceptable: ?<120 mg/dL ??Borderline high: ??120-144 mg/dL ??High: ?>145 mg/dL Ages > or = 20 years ??When triglycerides are >200 mg/dL, Non-HDL cholesterol is a secondary target of ? therapy with treatment goals that are 30 mg/dL greater than the LDL cholesterol target. ? Literature References: 1. Expert Panel on Integrated Guidelines for Cardiovascular Health and Risk Reduction in Children and Adolescents. Pediatrics 2011;128:S213 2. NCEP Expert Panel. Circulation 2004;110:227 Current Interpretive Data was last revised on 2018. Chol/HDL ratio 6 [facility] ([place]) Blood 06/03/2022 9:19 AM ON AIR TALENT 06/03/2022 9:56 AM ON AIR TALENT us Jerel Pinedo MD LAB BLOOD ORDERABLES Final Result [facility] ([place]) 1 [facility] [place] [address] * CBC with auto differential (06/03/2022 9:19 AM ON AIR TALENT) WBC 8.4 3.8 - 9.9 K/cumm [facility] ([place]) Hgb 14.4 11.9 - 15.5 g/dL [facility] ([place]) Hct 42.5 35.6 - 45.5 % [facility] ([place]) Plt 285 150 - 400 K/cumm [facility] ([place]) MPV 9.5 9.1 - 12.3 fL [facility] ([place]) RBC 4.67 3.90 - 5.20 M/cumm [facility] ([place]) MCV 91.0 81.3 - 96.4 fL [facility] ([place]) MCH 30.8 27.1 - 33.3 pg [facility] ([place]) MCHC 33.9 32.3 - 35.7 g/dL [facility] ([place]) RDW CV 12.1 11.1 - 14.9 % [facility] ([place]) RDW SD 39.9 35.7 - 48.1 fL [facility] ([place]) NRBC abs 0.00 0.00 - 0.01 K/cumm [facility] ([place] Blood 06/03/2022 9:19 AM ON AIR TALENT 06/03/2022 9:56 AM ON AIR TALENT Jerel Pinedo MD LAB BLOOD ORDERABLES Final Result [facility] ([place]) [address] [facility] [place] [address] * Hemoglobin A1c (06/03/2022 9:19 AM ON AIR TALENT) Hgb A1C 5.0 4.0 - 5.6 % [facility] ([place]) Estimated Average Glucose 97 mg/dL [facility] ([place]) Comment: The ADA recommends reporting an estimated Average Glucose (eAG) with all Hemoglobin A1c results using the equation derived from a study of 507 normal and diabetic adults. ??Minority populations were underrepresented and children were not included. ?? (Diabetes Care 31:1677-5542, 2008). ??The eAG is not equivalent to a fasting glucose. Blood 06/03/2022 9:19 AM ON AIR TALENT 06/03/2022 9:56 AM ON AIR TALENT Jerel Pinedo MD LAB BLOOD ORDERABLES Final Result Performing Organization Address City/[facility]/ZIP Co de Phone Number [facility] ([place]) 1 [facility] [place] [address] * TSH (06/03/2022 9:19 AM ON AIR TALENT) Thyroid Stimulating Hormone 1.69 0.30 - 4.20 mcIUnit/mL [facility] ([place]) Blood 06/03/2022 9:19 AM ON AIR TALENT 06/03/2022 9:56 AM ON AIR TALENT Jerel Pinedo MD LAB BLOOD ORDERABLES Final Result Performing Organization Address City/[facility] Co de Phone Number [facility] ([place] D) 1 [facility] [place] [address] documented in this encounter Visit Diagnoses Not on filedocumented in this encounter Care Teams Slitting Machine Operator Relationship Specialty Start Date End Date Gwen Calero PA PCP - General Neurosurgery 06/03/22 documented as of this encounter
--- OUTSIDE RECORDS SUMMARY | 2024-06-09 08:01 | XMS_ITS | Encounter Summary ---
Author Organization [facility] Medical Group Address [address] [place] [address] Care Team Providers Care [employer] Special Ed Teacher Name Role Phone Carmen Brown MD Primary Care Provider Reason for Visit * Reason Onset Date Comments Test Results 10/27/2017 colposcopy resul ts Encounter Details Date Type Department Care Team (Late st Contact Info) Description 10/27/2017 Telephone [employer] [facility] [employer] 4 [facility] [address] [place] [phone] Gaby Arzola MA Test Results (colposcopy results) Social History Tobacco Use Types Packs/Day Years Used Date Smoking Tobacco: Never Smokeless Tobacco: Never Alcohol Use Standard Drinks/Week Comments Yes 0 (1 standard drink = 0.6 oz pur e alcohol) Rare Comments No Sex and Gender Information Value Date Recorded Sex Assigned at Not on file Legal Sex Female 3:43 AM WIRE MACHINE OPERATOR Gender Identity Not on file Sexual Orientation Not on file documented as of this encounter Miscellaneous Notes * Telephone Encounter - Gaby Arzola MA - 10/27/2017 3:04 PM CDT Ok Per patient HIPAA form to leave message. 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 Patient advised to contact office with any question or concerns. documented in this encounter Plan of Treatment Upcoming Encounters Date Type Department Care Team (Latest Contact Info) Description 07/25/2024 12:30 PM WIRE MACHINE OPERATOR Hospital Encounter [facility] 1 [place] [address] Yves Krishna MD [address] [facility] [address] 07/25/2024 12:30 PM WIRE MACHINE OPERATOR - 07/25/2024 1:25 PM WIRE MACHINE OPERATOR Surgery [address] [address] Yves Krishna MD [address] [facility] [address] [place] [address] ESOPHAGOGASTRODUODENOSCOPY Scheduled Procedures Name Priority Associated Diagnoses Date/Ti me ESOPHAGOGASTRODUODENOSCOPY Epigastric pain Diarrhea, unspecified type 07/25/2024 12:30 PM WIRE MACHINE OPERATOR COLONOSCOPY Epigastric pain Diarrhea, unspecified type 07/25/2024 12:30 PM WIRE MACHINE OPERATOR documented as of this encounter Visit Diagnoses Not on filedocumented in this encounter Care Teams [employer] Special [employer] Teacher Relationship Specialty Start Date End Date Carmen Brown MD PCP - General Family Practice 11/02/16 06/02/22 documented as of this encounter
--- OUTSIDE RECORDS SUMMARY | 2024-06-09 08:01 | XMS_ITS | Encounter Summary ---
Author Organization [facility] Medical Group Address [address] [place] [address] Care Team Providers Care Ticket Puller Name Role Phone Carmen Brown MD Primary Care Provider [phone] Encounter Details Date Type Department Care Team (Late st Contact Info) Description 03/11/2017 Orders Only [facility] [address] [facility] [address] [place] [phone] Andrea Addison MD [address] [place] [address] [address] [place] [address] Social History Tobacco Use Types Packs/Day Years Used Date Smoking Tobacco: Never Smokeless Tobacco: Never Alcohol Use Standard Drinks/Week Comments No 0 (1 standard drink = 0.6 oz pur e alcohol) Comments No Sex and Gender Information Value Date Recorded Sex Assigned at Not on file Legal Sex Female 3:43 AM SENIOR DESIGNER Gender Identity Not on file Sexual Orientation Not on file documented as of this encounter Ordered Prescriptions Prescription Sig Dispense Quantity Refills Last Filled Start Date End Date etonogestrel-ethin yl estradiol (NUVARING) 0.12-0.015 mg/24 hr vaginal ring Insert vaginally and leave in place for 3 consecutive weeks, then remove for 1 week. 1 each 12 03/11/2017 8 documented in this encounter Plan of Treatment Upcoming Encounters Date Type Department Care Team (Latest Contact Info) Description 07/25/2024 12:30 PM SENIOR DESIGNER Hospital Encounter [facility] 1 [place] [address] Yves Krishna MD [address] [place] [address] [address] [place] [address] 07/25/2024 12:30 PM SENIOR DESIGNER - 07/25/2024 1:25 PM SENIOR DESIGNER Surgery [facility] 1 [place] [address] Yves Krishna MD [address] [facility] [address] [place] [address] ESOPHAGOGASTRODUODENOSCOPY Scheduled Procedures Name Priority Associated Diagnoses Date/Ti me ESOPHAGOGASTRODUODENOSCOPY Epigastric pain Diarrhea, unspecified type 07/25/2024 12:30 PM SENIOR DESIGNER COLONOSCOPY Epigastric pain Diarrhea, unspecified type 07/25/2024 12:30 PM SENIOR DESIGNER documented as of this encounter Visit Diagnoses Not on filedocumented in this encounter Discontinued Medications Medication Sig Discontinue Reason Start Date End Da te norethindrone (MICRONOR) 0.35 mg tabletIndications:Pregnanc y Contraception Take 1 tablet (0.35 mg total) by mouth daily. Alternate therapy 02/25/2017 03/11/2017 documented as of this encounter Care Teams Ticket Puller Relationship Specialty Start Date End Date Carmen Brown MD PCP - General Family Practice 11/02/16 06/02/22 documented as of this encounter
--- OUTSIDE RECORDS SUMMARY | 2024-06-09 08:01 | XMS_ITS | Encounter Summary ---
Author Organization [facility] Medical Group Address [address] [place] [address] Care Team Providers Care Extension Course Counselor Name Role Phone Carmen Brown MD Primary Care Provider Encounter Details Date Type Department Care Team (Late st Contact Info) Description 09/09/2017 Telephone [facility] [address] [facility] [address] [place] [address] Maya Suarez MA Social History Tobacco Use Types Packs/Day Years Used Date Smoking Tobacco: Never Smokeless Tobacco: Never Alcohol Use Standard Drinks/Week Comments Yes 0 (1 standard drink = 0.6 oz pur e alcohol) Rare Comments No Sex and Gender Information Value Date Recorded Sex Assigned at Not on file Legal Sex Female 3:43 AM CHILD DEVELOPMENT CONSULTANT Gender Identity Not on file Sexual Orientation Not on file documented as of this encounter Miscellaneous Notes * Telephone Encounter - Maya Suarez MA - 09/09/2017 10:29 AM CDT Pt called today requesting her Pap results. Pt made aware per JT result note pt to have colpo in 2-3 months. Pt appt. Made for 18 documented in this encounter Plan of Treatment Upcoming Encounters Date Type Department Care Team (Latest Contact Info) Description 07/25/2024 12:30 PM CHILD DEVELOPMENT CONSULTANT Hospital Encounter [facility] 1 [place] [address] Yves Krishna MD [address] [place] [address] [address] [place] [address] 07/25/2024 12:30 PM CHILD DEVELOPMENT CONSULTANT - 07/25/2024 1:25 PM CHILD DEVELOPMENT CONSULTANT Surgery [facility] 1 [place] [address] Yves Krishna MD [address] [facility] [address] [place] [address] ESOPHAGOGASTRODUODENOSCOPY Scheduled Procedures Name Priority Associated Diagnoses Date/Ti nj ESOPHAGOGASTRODUODENOSCOPY Epigastric pain Diarrhea, unspecified type 07/25/2024 12:30 PM CHILD DEVELOPMENT CONSULTANT COLONOSCOPY Epigastric pain Diarrhea, unspecified type 07/25/2024 12:30 PM CHILD DEVELOPMENT CONSULTANT documented as of this encounter Visit Diagnoses Not on filedocumented in this encounter Care Teams Extension Course Counselor Relationship Specialty Start Date End Date Carmen Brown MD PCP - General Family Practice 11/02/16 06/02/22 documented as of this encounter
--- OUTSIDE RECORDS SUMMARY | 2024-06-09 08:01 | XMS_ITS | Encounter Summary ---
Author Organization [facility] Medical Group Address [address] [place] [address] Care Team Providers Care Industrial Maintenance Tech Name Role Phone Carmen Brown MD Primary Care Provider [phone] Reason for Visit * Reason Onset Date Comments Change OC 03/09/2017 Encounter Details Date Type Department Care Team (Late st Contact Info) Description 03/09/2017 Telephone [facility] [address] [facility] [address] [place] [address] Vernell Jasso, RN Change OC Social History Tobacco Use Types Packs/Day Years Used Date Smoking Tobacco: Never Smokeless Tobacco: Never Alcohol Use Standard Drinks/Week Comments No 0 (1 standard drink = 0.6 oz pur e alcohol) Comments No Sex and Gender Information Value Date Recorded Sex Assigned at Not on file Legal Sex Female 3:43 AM RAMP JOCKEY Gender Identity Not on file Sexual Orientation Not on file documented as of this encounter Miscellaneous Notes * Telephone Encounter - Andrea Addison MD - 03/11/2017 5:09 PM CDT Spoke with patient and discussed that Nuvaring could decrease milk further; she would like to try; nuvaring sent to pharmacy. Also discussed baby might get some estrogen. * Telephone Encounter - Vernell Jasso RN - 03/09/2017 3:58 PM CDT Pt called today stating that ever since she has started the Minipill she is very irritable and her milk supply has drastically decreased. Pt is wanting to switch to something else. Can she do NuvaRing? Please advise. Thanks! documented in this encounter Plan of Treatment Upcoming Encounters Date Type Department Care Team (Latest Contact Info) Description 07/25/2024 12:30 PM RAMP JOCKEY Hospital Encounter [address] [address] Yves Krishna MD [address] [place] [address] [address] [place] [address] 07/25/2024 12:30 PM RAMP JOCKEY - 07/25/2024 1:25 PM RAMP JOCKEY Surgery [address] [address] Yves Krishna MD [address] [place] [address] [address] [place] [address] ESOPHAGOGASTRODUODENOSCOPY Scheduled Procedures Name Priority Associated Diagnoses Date/Ti me ESOPHAGOGASTRODUODENOSCOPY Epigastric pain Diarrhea, unspecified type 07/25/2024 12:30 PM RAMP JOCKEY COLONOSCOPY Epigastric pain Diarrhea, unspecified type 07/25/2024 12:30 PM RAMP JOCKEY documented as of this encounter Visit Diagnoses Not on filedocumented in this encounter Care Teams Industrial Maintenance Tech Relationship Specialty Start Date End Date Carmen Brown MD PCP - General Family Practice 11/02/16 06/02/22 documented as of this encounter
--- OUTSIDE RECORDS SUMMARY | 2024-06-09 08:01 | XMS_ITS | Encounter Summary ---
Author Organization [facility] Address [address] [facility] [address] [place] [address] Care Team Providers Care Adult Educator Name Role Phone Carmen Brown MD Primary Care Provider Reason for Visit * Reason Comments Follow-up Encounter Details Date Type Department Care Team (Late st Contact Info) Description 02/25/2017 1:45 PM CDT Office Visit [facility] 4 [facility] [address] [place] [phone] Andrea Addison MD [address] [place] [address] [address] [place], [place] [id number] Encounter for routine follow-up (Primary Dx); ASCUS with positive high risk HPV cervical Social History Tobacco Use Types Packs/Day Years Used Date Smoking Tobacco: Never Smokeless Tobacco: Never Alcohol Use Standard Drinks/Week Comments No 0 (1 standard drink = 0.6 oz pur e alcohol) Comments No Sex and Gender Information Value Date Recorded Sex Assigned at Not on file Legal Sex Female 3:43 AM COOLING PAN TENDER Gender Identity Not on file Sexual Orientation Not on file documented as of this encounter Last Filed Vital Signs Vital Sign Reading Time Taken Comments Blood Pressure 118/66 02/25/2017 1:56 PM CDT Pulse - - Temperature - - Respiratory Rate - - Oxygen Saturation - - Inhaled Oxygen Concentration - - Weight 73.9 kg (163 lb) 02/25/2017 1:56 PM CDT Height 160 cm (5' 3 ) 02/25/2017 1:56 PM CDT Body Mass Index 28.87 02/25/2017 1:56 PM CDT documented in this encounter Ordered Prescriptions Prescription Sig Dispense Quantity Refills Last Filled Start Date End Date norethindrone (MICRONOR) 0.35 mg tabletIndications:P regnancy Contraception Take 1 tablet (0.35 mg total) by mouth daily. 28 tablet 12 02/25/2017 7 documented in this encounter Progress Notes * Andrea Addison MD - 02/25/2017 1:45 PM CDT Note Subjective: Shalonda Constantino is a 31 y.o. year old female who presents 6 weeks s/p vaginal delivery. Her baby isdoing well. She scored a 2 on the EPDS. Patient is breast feeding. Patient desires progestin only oral contraception for contraception. Patient's last menstrual period was 04/12/2016. Current Outpatient Prescriptions: ??? no.[id number] (PRESS READER-PNV-DHA) 28 mg iron- 1 mg-200 mg capsule, take 1 capsule by oralroute every day, Disp: 30, Rfl: 11 ??? norethindrone (MICRONOR) 0.35 mg tablet, Take 1 tablet (0.35 mg total) by mouth daily., Disp: 28 tablet, Rfl: 12 No Known Allergies Review of Systems Objective: BP 118/66 (BP Location: Right arm, Patient Position: Sitting) Ht 160 cm (5' 3 ) Wt 163 lb (73.9 kg) LMP 04/12/2016 BMI 28.87 kg/m?? Physical Exam: General: Pleasant female in no acute distress. HEENT: WNL Pelvic Exam: External Genitalia: healing well. Vagina: no lesions. Urethra and meatus: WNL Cervix: No CMT or lesions Uterus: parous size, nontender Adnexa: No masses, nontender Assessment and Plan: Diagnoses and all orders for this visit: 1. Encounter for routine follow-up (Primary) Comments: Doing well. Orders: - ThinPrep Gynecologic Pap Test (Image-guided), Liquid-based Preparation; Future 2. ASCUS with positive high risk HPV cervical Comments: Pap repeated. If abnormal, will plan colpo. Nature of HR HPV and need for f/u discussed. Orders: - ThinPrep Gynecologic Pap Test (Image-guided), Liquid-based Preparation; Future Other orders - norethindrone (MICRONOR) 0.35 mg tablet; Take 1 tablet (0.35 mg total) by mouth daily. Kegel exercises reviewed. Return in about 6 months (around 08/25/2017) for repeat pap and annual exam. Andrea Addison MD 02/25/2017 JMT documented in this encounter Plan of Treatment Upcoming Encounters Date Type Department Care Team (Latest Contact Info) Description 07/25/2024 12:30 PM COOLING PAN TENDER Hospital Encounter [address] [address] Yves Krishna MD [address] [place] [address] [address] [place] [address] 07/25/2024 12:30 PM COOLING PAN TENDER - 07/25/2024 1:25 PM COOLING PAN TENDER Surgery [address] [address] Yves Krishna MD [address] [facility] [address] [place] [address] ESOPHAGOGASTRODUODENOSCOPY Scheduled Procedures Name Priority Associated Diagnoses Date/Ti me ESOPHAGOGASTRODUODENOSCOPY Epigastric pain Diarrhea, unspecified type 07/25/2024 12:30 PM COOLING PAN TENDER COLONOSCOPY Epigastric pain Diarrhea, unspecified type 07/25/2024 12:30 PM COOLING PAN TENDER documented as of this encounter Procedures Procedure Name Priority Date/Time Associated Diagnosis Comments THINPREP FIELD AGRONOMIST PAP (IMAGE GUIDED) LIQUID-BASED PREP Routine 02/25/2017 2:23 PM CDT Encounter for routine follow-up ASCUS with positive high risk HPV cervical documented in this encounter Results * ThinPrep Gynecologic Pap Test (Image-guided), Liquid-based Preparation (02/25/2017 2:23 PM CDT) Report status CANCELED [facility] Comment:Result canceled by t he ancillary Clinical information [facility] Comment:Information not prov ided LMP [facility] Comment:Information not prov ided Previous Pap [facility] Comment:Information not prov ided Prev. Bx [facility] Comment:Information not prov ided Source [facility] Comment:Information not prov ided Pap, specimen adequacy [facility] Comment: Satisfactory for evaluation. Endocervical/transformation zone component present. Age and/or menstrual status not provided Pap, general categorization [facility] Comment:Result canceled by t he ancillary HPV interp [facility] Comment:Negative for intraep ithelial lesion or malignancy. Infection: [facility]CELED [facility] Comment:Result canceled by t he ancillary COMMENTS [facility] Comment: This Pap test has been evaluated with computer assisted technology. [facility] [employer] - Comment: MLK, CT(ASCP) CT screening location: [place] [address] [address] [place] [address] Review marketing intelligence manager [facility]CELED [facility] Comment:Result canceled by t he ancillary Pathologist [facility] Comment:Result canceled by t he ancillary Endocervical/vag inal 02/25/2017 2:23 PM CDT 02/28/2017 9:03 AM CDT Narrative Resulting Agency Comment Performing Organization Information: ?Site ID: ?Name: [facility] ?Address: Replaced by [facility] Administration [place] [id number] ?Director: Jeremias Garcia MD Andrea Addison MD LAB PATHOLOGY ORDERABLES F inal Result [facility] [place] G[place] documented in this encounter Visit Diagnoses Diagnosis Encounter for routine follow-up- Primary ASCUS with positive high risk HPV cervical Epigastric pain Abdominal pain, epigastric Diarrhea, unspecified type documented in this encounter Discontinued Medications Medication Sig Discontinue Reason Start Date End Da te cholecalciferol (VITAMIN D3) 2,000 unit tabletIndications:vitami n d deficiency Take 1 tablet (2,000 Units total) by mouth daily. Therapy completed 12/16/2016 02/25/2017 NIFEdipine (PROCARDIA) 10 mg capsuleIndications:Prena christine care, subsequent , third trimester Take 1 capsule (10 mg total) by mouth every 6 (six) hours. Therapy completed 12/16/2016 02/25/2017 ondansetron (ZOFRAN, HYDROCHLORIDE,) 4 mg tablet take 2 tablet by oral route every 8 hours for 2 days Therapy completed 04/21/2016 02/25/[address] (PROTONIX) 40 mg EC tablet take 1 tablet by oral route every day Therapy completed 04/21/2016 02/25/2017 documented as of this encounter Care Teams Adult Educator Relationship Specialty Start Date End Date Carmen Brown MD PCP - General Family Practice 11/02/16 06/02/22 documented as of this encounter
--- OUTSIDE RECORDS SUMMARY | 2024-06-09 08:01 | XMS_ITS | Encounter Summary ---
Author Organization [facility] Address [address] [facility] [address] [place] [address] Care Team Providers Care Doubler Operator Name Role Phone Carmen Brown MD Primary Care Provider [phone] Reason for Visit * Reason Onset Date Comments Redness from Nifedipine 12/14/2016 Encounter Details Date Type Department Care Team (Late st Contact Info) Description 12/14/2016 Telephone [facility] [address] [facility] [address] [place] [address] Vernell Jasso, RN Redness from Nifedipine Social History Tobacco Use Types Packs/Day Years Used Date Smoking Tobacco: Never Comments Yes Sex and Gender Information Value Date Recorded Sex Assigned at Not on file Legal Sex Female 3:43 AM SISTER SUPERIOR Gender Identity Not on file Sexual Orientation Not on file documented as of this encounter Miscellaneous Notes * Telephone Encounter - Andrea Addison MD - 12/14/2016 5:22 PM CDT Reassurance, 7 cntxs today. * Telephone Encounter - Vernell Jasso RN - 12/14/2016 10:55 AM CDT Pt called today, 35 1 weeks , c/o red skin since starting Nifedipine. Pt states her ankles,calves and belly are red. Pt denies any itching, swelling or throat issues. Pt states it just lookslike a sunburn. Please advise. Thanks! documented in this encounter Plan of Treatment Upcoming Encounters Date Type Department Care Team (Latest Contact Info) Description 07/25/2024 12:30 PM SISTER SUPERIOR Hospital Encounter [facility] 1 [place] [address] Yves Krishna MD [address] [facility] [address] [place] [address] 07/25/2024 12:30 PM SISTER SUPERIOR - 07/25/2024 1:25 PM SISTER SUPERIOR Surgery [address] [address] Yves Krishna MD [address] [facility] [address] [place] [address] ESOPHAGOGASTRODUODENOSCOPY Scheduled Procedures Name Priority Associated Diagnoses Date/Ti me ESOPHAGOGASTRODUODENOSCOPY Epigastric pain Diarrhea, unspecified type 07/25/2024 12:30 PM SISTER SUPERIOR COLONOSCOPY Epigastric pain Diarrhea, unspecified type 07/25/2024 12:30 PM SISTER SUPERIOR documented as of this encounter Visit Diagnoses Not on filedocumented in this encounter Care Teams Doubler Operator Relationship Specialty Start Date End Date Carmen Brown MD PCP - General Family Practice 11/02/16 06/02/22 documented as of this encounter
--- OUTSIDE RECORDS SUMMARY | 2024-06-09 08:01 | XMS_ITS | Encounter Summary ---
Author Organization [facility] Address [address] [facility] [address] [place] [address] Care Team Providers Care Needle Punch Machine Operator Name Role Phone Carmen Brown MD Primary Care Provider [phone] Reason for Visit * Reason Onset Date Comments 01/06/2017 Encounter Details Date Type Department Care Team (Late st Contact Info) Description 01/06/2017 Telephone [facility] [employer] [facility] [address] [facility] [address] [place] [address] Gaby Arzola MA Social History Tobacco Use Types Packs/Day Years Used Date Smoking Tobacco: Never Comments Yes Sex and Gender Information Value Date Recorded Sex Assigned at Not on file Legal Sex Female 3:43 AM LACING CUTTER Gender Identity Not on file Sexual Orientation Not on file documented as of this encounter Miscellaneous Notes * Telephone Encounter - Gaby Arzola MA - 01/06/2017 1:12 PM CDT Patient states that she has been marcin most of the night last evening with back pain. She states that this morning she has a lot of pressure in her pelvic and vaginal area that is a new symptomas of today. Patient was advised to go to labor and delivery for evaluation, confirmed with Vernell ALONSO documented in this encounter Plan of Treatment Upcoming Encounters Date Type Department Care Team (Latest Contact Info) Description 07/25/2024 12:30 PM LACING CUTTER Hospital Encounter [facility] 1 [place] [address] Yves Krishna MD [address] [facility] [address] [place] [address] 07/25/2024 12:30 PM LACING CUTTER - 07/25/2024 1:25 PM LACING CUTTER Surgery [facility] [address] [place] [address] Yves Krishna MD [address] [facility] [address] [place] [address] ESOPHAGOGASTRODUODENOSCOPY Scheduled Procedures Name Priority Associated Diagnoses Date/Ti me ESOPHAGOGASTRODUODENOSCOPY Epigastric pain Diarrhea, unspecified type 07/25/2024 12:30 PM LACING CUTTER COLONOSCOPY Epigastric pain Diarrhea, unspecified type 07/25/2024 12:30 PM LACING CUTTER documented as of this encounter Visit Diagnoses Not on filedocumented in this encounter Care Teams Needle Punch Machine Operator Relationship Specialty Start Date End Date Carmen Brown MD PCP - General Family Practice 11/02/16 06/02/22 documented as of this encounter
--- OUTSIDE RECORDS SUMMARY | 2024-06-09 08:01 | XMS_ITS | Encounter Summary ---
Author Organization [facility] Address [address] [facility] [address] [place] [address] Care Team Providers Care Project Archivist Name Role Phone Carmen Brown MD Primary Care Provider Reason for Visit * Reason Comments Routine Visit Encounter Details Date Type Department Care Team (Late st Contact Info) Description 12/20/2016 2:15 PM CDT Routine [facility] 4 [facility] [address] [place] [phone] Andrea Addison MD [address] [place] [address] [address] [place], [place] [phone] Encounter for supervision of other normal in third trimester (Primary Dx); 36 weeks gestation of Social History Tobacco Use Types Packs/Day Years Used Date Smoking Tobacco: Never Comments Yes Sex and Gender Information Value Date Recorded Sex Assigned at Not on file Legal Sex Female 3:43 AM SERVICE ATTENDANT Gender Identity Not on file Sexual Orientation Not on file documented as of this encounter Last Filed Vital Signs Vital Sign Reading Time Taken Comments Blood Pressure 124/78 12/20/2016 2:31 PM CDT Pulse - - Temperature - - Respiratory Rate - - Oxygen Saturation - - Inhaled Oxygen Concentration - - Weight 79.4 kg (175 lb) 12/20/2016 2:31 PM CDT Height - - Body Mass Index 31 04/21/2016 8:52 AM SERVICE ATTENDANT documented in this encounter Progress Notes * Andrea Addison MD - 12/20/2016 2:15 PM CDT No c/os. Frequent ectopic beats on FHR. S=D. PCD. Recommend steroids; patient declines. Cont. Procardia 10mg q 5 hours for a few more days. Patient desires echo. documented in this encounter Plan of Treatment Upcoming Encounters Date Type Department Care Team (Latest Contact Info) Description 07/25/2024 12:30 PM SERVICE ATTENDANT Hospital Encounter [address] [address] Yves Krishna MD [address] [place] [address] [address] [place] [address] 07/25/2024 12:30 PM SERVICE ATTENDANT - 07/25/2024 1:25 PM SERVICE ATTENDANT Surgery [address] [address] Yves Krishna MD [address] [place] [address] [address] [place] [address] ESOPHAGOGASTRODUODENOSCOPY Scheduled Procedures Name Priority Associated Diagnoses Date/Ti me ESOPHAGOGASTRODUODENOSCOPY Epigastric pain Diarrhea, unspecified type 07/25/2024 12:30 PM SERVICE ATTENDANT COLONOSCOPY Epigastric pain Diarrhea, unspecified type 07/25/2024 12:30 PM SERVICE ATTENDANT documented as of this encounter Procedures Procedure Name Priority Date/Time Associated Diagnosis Comments POCT URINALYSIS DIPSTICK Routine 12/20/2016 2:35 PM CDT 36 weeks gestation of Encounter for supervision of other normal in third trimester documented in this encounter Results * POCT urinalysis dipstick (12/20/2016 2:35 PM CDT) Glucose, ur, POC Negative mmol/L Protein, ur, POC 1+ mg/dL Lot Number [id number] Urine 12/20/2016 2:35 PM CDT Andrea Addison MD POINT OF CARE TEST ORDERAB LES Final Result documented in this encounter Visit Diagnoses Diagnosis Encounter for supervision of other normal in third trimester- Primary 36 weeks gestation of Epigastric pain Abdominal pain, epigastric Diarrhea, unspecified type documented in this encounter Care Teams Project Archivist Relationship Specialty Start Date End Date Carmen Brown MD PCP - General Family Practice 11/02/16 06/02/22 documented as of this encounter
--- OUTSIDE RECORDS SUMMARY | 2024-06-09 08:01 | XMS_ITS | Encounter Summary ---
Author Organization [facility] Healthcare Address [address] [place] [address] Care Team Providers Care Insulation Power Unit Tender Name Role Phone Carmen Brown MD Primary Care Provider [phone] Reason for Visit * Reason Comments Back Pain Encounter Details Date Type Department Care Team (Late st Contact Info) Description 07/10/2019 1:35 PM CHEMICAL TREATMENT OPERATOR - 07/10/2019 2:48 PM CHEMICAL TREATMENT OPERATOR Emergency [facility] Emergency Department [address] [place] [id number] Sciatica of right side (Primary Dx) Discharge Disposition: Discharge to home or self care Social History Tobacco Use Types Packs/Day Years Used Date Smoking Tobacco: Never Smokeless Tobacco: Never Alcohol Use Standard Drinks/Week Comments Yes 0 (1 standard drink = 0.6 oz pur e alcohol) Rare Comments No Sex and Gender Information Value Date Recorded Sex Assigned at Not on file Legal Sex Female 3:43 AM CHEMICAL TREATMENT OPERATOR Gender Identity Not on file Sexual Orientation Not on file documented as of this encounter Last Filed Vital Signs Vital Sign Reading Time Taken Comments Blood Pressure 138/90 07/10/2019 1:48 PM CHEMICAL TREATMENT OPERATOR Pulse 95 07/10/2019 1:48 PM CHEMICAL TREATMENT OPERATOR Temperature 36.6 ??C (97.8 ??F) 07/10/2019 1:48 PM CS T Respiratory Rate 20 07/10/2019 1:48 PM CHEMICAL TREATMENT OPERATOR Oxygen Saturation 100% 07/10/2019 1:48 PM CHEMICAL TREATMENT OPERATOR Inhaled Oxygen Concentration - - Weight 49.9 kg (110 lb) 07/10/2019 1:49 PM CHEMICAL TREATMENT OPERATOR Height 160 cm (5' 3 ) 07/10/2019 1:49 PM CHEMICAL TREATMENT OPERATOR Body Mass Index 19.49 07/10/2019 1:49 PM CHEMICAL TREATMENT OPERATOR documented in this encounter Discharge Diagnoses Diagnosis Lumbago with sciatica, right side - LUMBAGO WITH SCIATICA, RIGHT SIDE Major depressive disorder, single episode, unspecified - MAJOR DEPRESSIVE DISORDER, SINGLE EPISODE, UNSPECIFIED documented in this encounter Discharge Instructions * Attachments The following attachments cannot be sent through Care Everywhere. * Sciatica (AfterCare(R) Instructions(ER/ED)) (Icelandic) documented in this encounter Medications at Time [...] as needed for pain 12 tablet 07/10/2019 methylPREDNISolo ne (MEDROL DOSEPACK) 4 mg Dosepack Take as directed. 21 tablet 07/10/2019 0 documented as of this encounter Ordered Prescriptions Prescription Sig Dispense Quantity Refills Last Filled Start Date End Date HYDROcodone-acetam inophen (NORCO) 5-325 mg per tabletIndications: Pain Take 1 tablet by mouth every 6 (six) hours as needed for pain 12 tablet 07/10/2019 methylPREDNISolone (MEDROL DOSEPACK) 4 mg Dosepack Take as directed. 21 tablet 07/10/2019 07/16/2019 documented in this encounter Discharge Disposition Disposition Code Departure Means Destination Discharge to home or self care documented in this encounter ED Notes * Jossy Brunner, POWER TECHNICIAN - 07/10/2019 1:51 PM CST HPI Chief Complaint Patient presents with ??? Back Pain 34-year-old female with history of sciatica and lower back pain, presents to ED with complaints of right buttocks pain that radiates down her leg and into her toes. Patient states she saw her primarycare physician approximately 1 week ago where she had physical therapy ordered. Patient is start physical therapy this upcoming Tuesday. Patient states she woke up with the pain intensifying. Patient states she no longer has left lower back pain and is on now in her right buttock. Patient reports associated burning and intermittent numbness. Patient denies any fevers, chills, injury, trauma, saddle anesthesia, or dysuria. Patient has been taking ibuprofen and Tylenol at home with no relief. Patient is and is unable to take muscle relaxers. Patient History Patient Active Problem List Diagnosis Date Noted ??? Abnormal Pap smear of cervix 11/17/2016 ??? Fibrositis 04/23/2015 Class: Chronic Past Medical History: Diagnosis Date ??? Abnormal [...] on ear drum ??? VAGINAL DELIVERY 01/11/2017 Family History Problem Relation Age of Onset ??? Hypertension Mother Hypertension; ??? Thyroid disease Mother Thyroid disease; Social History Tobacco Use ??? Smoking status: Never Smoker ??? Smokeless tobacco: Never Used Substance Use Topics ??? Alcohol use: Yes Comment: Rare ??? Drug use: No Social History Patient does not qualify to have social determinant information on file (likely too young). Social History Narrative ??? Not on file Review of Systems Review of Systems Constitutional: Negative. Respiratory: Negative. Cardiovascular: Negative. Gastrointestinal: Negative. Genitourinary: Negative. Musculoskeletal: Positive for myalgias. Negative for back pain. Skin: Negative. Neurological: Positive for numbness. All other systems reviewed and are negative. Physical Exam ED Triage Vitals [07/10/19 1348] Temp Pulse Resp BP SpO2 36.6 ??C (97.8 ??F) 95 20 138/90 100 % Temp src Heart Rate Source Patient Position BP Location FiO2 (%) Temporal -- -- -- -- Physical Exam Vitals signs and nursing note reviewed. Constitutional: General: She is in acute distress. Appearance: Normal appearance. She is not ill-appearing, toxic-appearing or diaphoretic. HENT: Head: Normocephalic and atraumatic. Nose: Nose normal. Eyes: Extraocular Movements: Extraocular movements intact. Conjunctiva/sclera: Conjunctivae normal. Neck: Musculoskeletal: Normal range of motion. Cardiovascular: Rate and Rhythm: Normal rate. Pulses: Normal pulses. Pulmonary: Effort: Pulmonary effort is normal. No respiratory distress. Musculoskeletal: Normal range of motion. Comments: Pt is unable to apply full pressure onto right leg when walking due to pain. Skin: General: Skin is warm and dry. Findings: No rash. Neurological: General: No focal deficit present. Mental Status: She is alert and oriented to person, place, and time. Psychiatric: Mood and Affect: Mood normal. Behavior: Behavior normal. Thought Content: Thought content normal. Judgment: Judgment normal. MDM MDM Number of Diagnoses or Management Options Sciatica of right side: minor Risk of Complications, Morbidity, and/or Mortality Presenting problems: minimal Diagnostic procedures: minimal Management options: minimal Patient Progress Patient progress: stable ED Course as of Jul 10 1446 Time: 07/10 1439 Comment: Pt states the medication given has taken the edge off but still has pain. Pt states she has to go back to work and does not have a ride from here. Pt encouraged to use warm compresses at home and to stretcher her back, buttocks, and hamstrings. Pt encouraged to keep her PT appt for this Tuesday. By: Jossy Brunner NP Sciatica of right side Jossy Brunner NP 07/10/19 1447 Cosigned by Jose Daniel Sellers MD at 07/10/2019 3:46 PM CHEMICAL TREATMENT OPERATOR ICAL TREATMENT OPERATOR ICAL TREATMENT OPERATOR * Karishma West RN - 07/10/2019 1:45 PM CST Patient presents to the emergency room for evaluation of low back pain. Patient denies injury, states it has bothered her off and on for the last six months. Patient states she was seen by her PCP last week who did X-rays and recommended PT which patient starts Tuesday07/13/2019. Patient states she has taken lots of tylenol and ibuprofen with last dose being about an hour and forty minutes SENIOR DATA INTEGRATION DEVELOPER (1200.) Patient states the pain is right sided, low, radiates down her leg to her foot, states occasional unilateral leg numbness. Denies loss of bowel or bladder control. Patient states pain is worse with sitting, and standing/walking helps. NAD ICAL TREATMENT OPERATOR documented in this encounter Plan of Treatment Upcoming Encounters Date Type Department Care Team (Latest Contact Info) Description 07/25/2024 12:30 PM CHEMICAL TREATMENT OPERATOR Hospital Encounter [facility] [address] [place] [address] Yves Krishna MD [address] [place] [address] [address] [place] [address] 07/25/2024 12:30 PM CHEMICAL TREATMENT OPERATOR - 07/25/2024 1:25 PM CHEMICAL TREATMENT OPERATOR Surgery [address] [address] Yves Krishna MD [address] [place] [address] [address] [place] [address] ESOPHAGOGASTRODUODENOSCOPY Scheduled Procedures Name Priority Associated Diagnoses Date/Ti ak ESOPHAGOGASTRODUODENOSCOPY Epigastric pain Diarrhea, unspecified type 07/25/2024 12:30 PM CHEMICAL TREATMENT OPERATOR COLONOSCOPY Epigastric pain Diarrhea, unspecified type 07/25/2024 12:30 PM CHEMICAL TREATMENT OPERATOR documented as of this encounter Visit Diagnoses Diagnosis Sciatica of right side- Primary Epigastric pain Abdominal pain, epigastric Diarrhea, unspecified type documented in this encounter Administered Medications Inactive Administered Medications - up to 3 most recent administrations Medication Order MAR Action Action Date Dose Rate Site ketorolac (TORADOL) intramuscular injection 60 mg 60 mg, intramuscular, Once, On Tue07/10/19 at 1349, For 1 dose, Intramuscular Given 07/10/2019 1:56 PM CHEMICAL TREATMENT OPERATOR 60 mg Right Dorsogluteal/Butt ock methylPREDNISolone sodium succinate (SOLU-medrol) preservative free injection 125 mg 125 mg, intramuscular, Administer over 3 Minutes, Once, On 07/10/19 at 1349, For 1 dose, Administer 125 mg or less over 3 minutes Given 07/10/2019 1:56 PM CHEMICAL TREATMENT OPERATOR 125 mg Left Dorsogluteal/Butt ock documented in this encounter Active and Recently Administered Medications Times are shown in CHEMICAL TREATMENT OPERATOR. Scheduled Medication Order 07/08/2019 07/09/2019 07/10/2019 ketorolac (TORADOL) intramuscular injection 60 mg (COMPLETED) 60 mg, intramuscular, Once, On 07/10/19 at 1349, For 1 dose, Intramuscular 1356 (Given - Provid er: Karishma West RN) methylPREDNISolone sodium succinate (SOLU-medrol) preservative free injection 125 mg (COMPLETED) 125 mg, intramuscular, Administer over 3 Minutes, Once, On 07/10/19 at 1349, For 1 dose, Administer 125 mg or less over 3 minutes 1356 (Given - Provid er: Karishma West RN) documented in this encounter Care Teams Insulation Power Unit Tender Relationship Specialty Start Date End Date Carmen Brown MD PCP - General Family Practice 11/02/16 06/02/22 documented as of this encounter
--- OUTSIDE RECORDS SUMMARY | 2024-06-09 08:02 | XMS_ITS | Encounter Summary ---
Author Organization [facility] Healthcare Address [address] [place] [address] Care Team Providers Care Home Health Outreach Coordinator Name Role Phone Unavailable Primary Care Provider Unavailabl e Encounter Details Date Type Department Care Team (Late st Contact Info) Description 11/23/2011 6:57 PM CDT - 11/23/2011 9:55 PM CDT Hospital Encounter [facility] Jose Daniel Canales MD [address] [facility] [address] N[address] [place] [address] Urinary tract infection; Abdominal pain Social History Tobacco Use Types Packs/Day Years Used Date Smoking Tobacco: Never Assessed Comments Unknown Sex and Gender Information Value Date Recorded Sex Assigned at Not on file Legal Sex Female 3:43 AM TIME STUDY CLERK Gender Identity Not on file Sexual Orientation Not on file documented as of this encounter Plan of Treatment Upcoming Encounters Date Type Department Care Team (Latest Contact Info) Description 07/25/2024 12:30 PM TIME STUDY CLERK Hospital Encounter [address] [address]Yves Franklin MD [address] [facility] [address] [place] [address] 07/25/2024 12:30 PM TIME STUDY CLERK - 07/25/2024 1:25 PM TIME STUDY CLERK Surgery [address] [address]Yves Franklin MD [address] [facility] [address] [place] [address] ESOPHAGOGASTRODUODENOSCOPY Scheduled Procedures Name Priority Associated Diagnoses Date/Ti me ESOPHAGOGASTRODUODENOSCOPY Epigastric pain Diarrhea, unspecified type 07/25/2024 12:30 PM TIME STUDY CLERK COLONOSCOPY Epigastric pain Diarrhea, unspecified type 07/25/2024 12:30 PM TIME STUDY CLERK documented as of this encounter Visit Diagnoses Diagnosis Urinary tract infection Urinary tract infection, site not specified Abdominal pain Abdominal pain, unspecified site Epigastric pain Abdominal pain, epigastric Diarrhea, unspecified type documented in this encounter
--- OUTSIDE RECORDS SUMMARY | 2024-06-09 08:02 | XMS_ITS | Encounter Summary ---
Author Organization [facility] Healthcare Address [address] [place] [address] Care Team Providers Care Box Sealing Machine Feeder Name Role Phone Unavailable Primary Care Provider Unavailabl e Encounter Details Date Type Department Care Team (Late st Contact Info) Description 02/02/2009 12:35 PM CDT - 02/02/2009 2:15 PM CDT Hospital Encounter [facility] Jose Daniel Canales MD [address] [facility] [address] [place] [address] Sania Reinoso Other chest pain; Asthma; Tobacco use disorder Social History Tobacco Use Types Packs/Day Years Used Date Smoking Tobacco: Never Assessed Comments Unknown Sex and Gender Information Value Date Recorded Sex Assigned at Not on file Legal Sex Female 3:43 AM GREEN FEED ATTENDANT Gender Identity Not on file Sexual Orientation Not on file documented as of this encounter Plan of Treatment Upcoming Encounters Date Type Department Care Team (Latest Contact Info) Description 07/25/2024 12:30 PM GREEN FEED ATTENDANT Hospital Encounter [address] [address] Yves Krishna MD [address] [facility] [address] [place] [address] 07/25/2024 12:30 PM GREEN FEED ATTENDANT - 07/25/2024 1:25 PM GREEN FEED ATTENDANT Surgery [address] [address] Yves Krishna MD [address] [facility] [address] [place] [address] ESOPHAGOGASTRODUODENOSCOPY Scheduled Procedures Name Priority Associated Diagnoses Date/Ti me ESOPHAGOGASTRODUODENOSCOPY Epigastric pain Diarrhea, unspecified type 07/25/2024 12:30 PM GREEN FEED ATTENDANT COLONOSCOPY Epigastric pain Diarrhea, unspecified type 07/25/2024 12:30 PM GREEN FEED ATTENDANT documented as of this encounter Visit Diagnoses Diagnosis Other chest pain Asthma Unspecified asthma Tobacco use disorder Epigastric pain Abdominal pain, epigastric Diarrhea, unspecified type documented in this encounter
--- OUTSIDE RECORDS SUMMARY | 2024-06-09 08:02 | XMS_ITS | Encounter Summary ---
Author Organization [facility] Healthcare Address [address] [place] [address] Care Team Providers Care Spectrograph Operator Name Role Phone Unavailable Primary Care Provider Unavailabl e Encounter Details Date Type Department Care Team (Late st Contact Info) Description 12/10/2008 8:10 PM CDT - 12/10/2008 8:30 PM CDT Hospital Encounter [facility] Radames Ha MD [address] [facility] [address] [place] [address] Parich, Tanin Cellulitis and abscess of upper arm and forearm; Tobacco use disorder Social History Tobacco Use Types Packs/Day Years Used Date Smoking Tobacco: Never Assessed Comments Unknown Sex and Gender Information Value Date Recorded Sex Assigned at Not on file Legal Sex Female 3:43 AM WOOD FENCE INSTALLER Gender Identity Not on file Sexual Orientation Not on file documented as of this encounter Plan of Treatment Upcoming Encounters Date Type Department Care Team (Latest Contact Info) Description 07/25/2024 12:30 PM WOOD FENCE INSTALLER Hospital Encounter [address] [address]Yves Franklin MD [address] [facility] [place] [address] 07/25/2024 12:30 PM WOOD FENCE INSTALLER - 07/25/2024 1:25 PM WOOD FENCE INSTALLER Surgery [address] [address] Yves Krishna MD [address] [facility] [place] [address] ESOPHAGOGASTRODUODENOSCOPY Scheduled Procedures Name Priority Associated Diagnoses Date/Ti me ESOPHAGOGASTRODUODENOSCOPY Epigastric pain Diarrhea, unspecified type 07/25/2024 12:30 PM WOOD FENCE INSTALLER COLONOSCOPY Epigastric pain Diarrhea, unspecified type 07/25/2024 12:30 PM WOOD FENCE INSTALLER documented as of this encounter Visit Diagnoses Diagnosis Cellulitis and abscess of upper arm and forearm Tobacco use disorder Epigastric pain Abdominal pain, epigastric Diarrhea, unspecified type documented in this encounter
--- OUTSIDE RECORDS SUMMARY | 2024-06-09 08:02 | XMS_ITS | Encounter Summary ---
Author Organization [facility] Healthcare Address [address] [place] [address] Care Team Providers Care Earring Maker Name Role Phone Unavailable Primary Care Provider Unavailabl e Encounter Details Date Type Department Care Team (Late st Contact Info) Description 05/15/2012 3:07 PM EDITOR GREETING CARD - 05/15/2012 6:35 PM EDITOR GREETING CARD Hospital Encounter [facility] Narayan Goins MD [facility] [place] [address] Urinary tract infection Social History Tobacco Use Types Packs/Day Years Used Date Smoking Tobacco: Never Assessed Comments Unknown Sex and Gender Information Value Date Recorded Sex Assigned at Not on file Legal Sex Female 3:43 AM EDITOR GREETING CARD Gender Identity Not on file Sexual Orientation Not on file documented as of this encounter Plan of Treatment Upcoming Encounters Date Type Department Care Team (Latest Contact Info) Description 07/25/2024 12:30 PM EDITOR GREETING CARD Hospital Encounter [address] [address] Yves Krishna MD [address] [facility] [place] [address] 07/25/2024 12:30 PM EDITOR GREETING CARD - 07/25/2024 1:25 PM EDITOR GREETING CARD Surgery [address] [address] Yves Krishna MD [address] [facility] [place] [address] ESOPHAGOGASTRODUODENOSCOPY Scheduled Procedures Name Priority Associated Diagnoses Date/Ti me ESOPHAGOGASTRODUODENOSCOPY Epigastric pain Diarrhea, unspecified type 07/25/2024 12:30 PM EDITOR GREETING CARD COLONOSCOPY Epigastric pain Diarrhea, unspecified type 07/25/2024 12:30 PM EDITOR GREETING CARD documented as of this encounter Visit Diagnoses Diagnosis Urinary tract infection Urinary tract infection, site not specified Epigastric pain Abdominal pain, epigastric Diarrhea, unspecified type documented in this encounter
--- OUTSIDE RECORDS SUMMARY | 2024-06-09 08:02 | XMS_ITS | Encounter Summary ---
Author Organization [facility] Healthcare Address [address] [place] [address] Care Team Providers Care Farmworker Turkey Farm Name Role Phone Unavailable Primary Care Provider Unavailabl e Encounter Details Date Type Department Care Team (Late st Contact Info) Description 02/27/2016 7:23 PM CDT - 02/27/2016 8:02 PM CDT Hospital Encounter [facility] Marc Lynch Jr., MD [address] [place] [address] Otitic barotrauma; Otalgia of left ear; Nonsuppurative otitis media of left ear; Exposure to other specified factors, initial encounter; Other medical procedures as the cause of abnormal reaction of the patient, or of later complication, without mention of misadventure at the time of the procedure; Unspecified place or not applicable Social History Tobacco Use Types Packs/Day Years Used Date Smoking Tobacco: Never Assessed Comments Unknown Sex and Gender Information Value Date Recorded Sex Assigned at Not on file Legal Sex Female 3:43 AM FIELD OBSERVER Gender Identity Not on file Sexual Orientation Not on file documented as of this encounter Medications at Time of Discharge etonogestrel-ethi nyl estradiol (NUVARING) 0.12-0.015 mg/24 hr vaginal ring insert 1 vaginal ring by vaginal route every month leave in place for 3 weeks, remove for 1 week 1 12 04/23/2015 01/10/2017 documented as of this encounter Plan of Treatment Upcoming Encounters Date Type Department Care Team (Latest Contact Info) Description 07/25/2024 12:30 PM FIELD OBSERVER Hospital Encounter [facility] [address] [place] [address] Yves Krishna MD [address] [facility] [address] [place] [address] 07/25/2024 12:30 PM FIELD OBSERVER - 07/25/2024 1:25 PM FIELD OBSERVER Surgery [address] [address] Yves Krishna MD [address] [facility] [address] [place] [address] ESOPHAGOGASTRODUODENOSCOPY Scheduled Procedures Name Priority Associated Diagnoses Date/Ti me ESOPHAGOGASTRODUODENOSCOPY Epigastric pain Diarrhea, unspecified type 07/25/2024 12:30 PM FIELD OBSERVER COLONOSCOPY Epigastric pain Diarrhea, unspecified type 07/25/2024 12:30 PM FIELD OBSERVER documented as of this encounter Visit Diagnoses Diagnosis Otitic barotrauma Barotrauma, otitic Otalgia of left ear Nonsuppurative otitis media of left ear Exposure to other specified factors, initial encounter Other medical procedures as the cause of abnormal reaction of the patient, or of later complication, without mention of misadventure at the time of the procedure Unspecified place or not applicable Epigastric pain Abdominal pain, epigastric Diarrhea, unspecified type documented in this encounter
--- OUTSIDE RECORDS SUMMARY | 2024-06-09 08:02 | XMS_ITS | Encounter Summary ---
Author Organization [facility] Healthcare Address [address] [place] [address] Care Team Providers Care Mining Engineering Technologist Name Role Phone Unavailable Primary Care Provider Unavailabl e Encounter Details Date Type Department Care Team (Late st Contact Info) Description 10/26/2015 9:41 AM CDT - 10/26/2015 3:09 PM CDT Hospital Encounter [facility] Jr., MD [facility] [place] [address] Abdominal pain; Vomiting; Cigarette nicotine dependence, uncomplicated; Diverticulosis of intestine without perforation or abscess without bleeding Social History Tobacco Use Types Packs/Day Years Used Date Smoking Tobacco: Never Assessed Comments Unknown Sex and Gender Information Value Date Recorded Sex Assigned at Not on file Legal Sex Female 3:43 AM BOX SEALING MACHINE FEEDER Gender Identity Not on file Sexual Orientation [...] (Latest Contact Info) Description 07/25/2024 12:30 PM BOX SEALING MACHINE FEEDER Hospital Encounter [facility] [address] [place] [address] Yves Krishna MD [address] [facility] [address] [place] [address] [place] [id number] 07/25/2024 12:30 PM BOX SEALING MACHINE FEEDER - 07/25/2024 1:25 PM BOX SEALING MACHINE FEEDER Surgery [facility] [address] [place] [address] Yves Krishna MD [address] [place] [address] [place] [address] ESOPHAGOGASTRODUODENOSCOPY Scheduled Procedures Name Priority Associated Diagnoses Date/Ti me ESOPHAGOGASTRODUODENOSCOPY Epigastric pain Diarrhea, unspecified type 07/25/2024 12:30 PM BOX SEALING MACHINE FEEDER COLONOSCOPY Epigastric pain Diarrhea, unspecified type 07/25/2024 12:30 PM BOX SEALING MACHINE FEEDER documented as of this encounter Procedures Procedure Name Priority Date/Time Associated Diagnosis Comments FECAL OCCULT BLOOD IDENTIFICATION Routine 10/26/2015 1:12 PM CDT GIARDIA/CRYPTOSPORIDIUM EIA, CDR Routine 10/26/2015 1:12 PM CDT ENTERIC PATHOGEN CULTURE, CDR Routine 10/26/2015 1:12 PM CDT CLOSTRIDIUM DIFFICILE, CDR Routine 10/26/2015 1:[address] ABDOMEN PELVIS W CONTRAST Routine 10/26/2015 11:53 AM CDT SERUM MAGNESIUM Routine 10/26/2015 10:20 AM CDT SERUM LIPASE Routine 10/26/2015 10:20 AM CDT SERUM ESTIMATED GLOMERULAR FILTRATION RATE Routine 10/26/2015 10:20 AM CDT SERUM CHORIONIC GONADOTROPIN (HCG), QUANTITATIVE Routine 10/26/2015 10:20 AM CDT SERUM AMYLASE Routine 10/26/2015 10:20 AM CDT PLASMA COMPREHENSIVE METABOLIC PANEL Routine 10/26/2015 10:20 AM CDT BLOOD CELL COUNT (CBC), MORPHOLOGIC EXAM Routine 10/26/2015 10:20 AM CDT BLOOD CELL MORPHOLOGIC EXAM Routine 10/26/2015 10:20 AM CDT URINE (AEROBIC) CULTURE, CDR Routine 10/26/2015 10:05 AM CDT URINE MICROSCOPY Routine 10/26/2015 10:0 5 AM CDT URINALYSIS Routine 10/26/2015 10:05 AM CDT DISCHARGE LABORATORY CUMULATIVE REPORT 10/26/2015 documented in this encounter Results * Fecal occult blood identification (10/26/2015 1:12 PM CDT) [facility] Occult blood, fecal Negative Negative HISTORICAL RESULTS Collection date 1, feces [id number] HISTORICAL RESULTS Collection time 1, feces 1311 HISTORICAL RESULTS Stool 10/26/2015 1:12 PM CDT Historical Provider LAB BLOOD ORDERABLES Vi l Result Performing Organization Address [facility] [[email or web address]] Co de Phone Number HISTORICAL RESULTS * Giardia/Cryptosporidium EIA (10/26/2015 1:12 PM CDT) Stool (Unknown) 10/26/2015 1 :12 PM CDT Narrative HISTORICAL RESULTS - 10/26/2015 3:27 PM CDT Negative for Cryptosporidium and Giardia Historical Provider LAB MICROBIOLOGY - GENERA L ORDERABLES Final Result Performing Organization Address [facility] [[email or web address]] Co de Phone Number HISTORICAL RESULTS * Clostridium difficile (10/26/2015 1:12 PM CDT) Stool (Unknown) 10/26/2015 1 :12 PM CDT Narrative HISTORICAL RESULTS - 10/26/2015 3:36 PM CDT Negative Clostridium difficile toxin not detected Historical Provider LAB MICROBIOLOGY - GENERA L ORDERABLES Final Result Performing Organization Address [facility] [[email or web address]] Co de Phone Number HISTORICAL RESULTS * Enteric pathogen culture (10/26/2015 1:12 PM CDT) Stool (Unknown) 10/26/2015 1 :12 PM CDT Narrative HISTORICAL RESULTS - 10/29/2015 6:52 AM CDT No Salmonella, Shigella, Campylobacter, or E. coli O157. Negative for Shigatoxin I and II. us Historical Provider LAB MICROBIOLOGY - GENERA L ORDERABLES Final Result HISTORICAL RESULTS * CT Abdomen Pelvis W Contrast (10/26/2015 11:53 AM CDT) Anatomical Region Laterality Modality Body N/A Computed Tomogra phy 10/26/2015 11:5 3 AM CDT Narrative 10/26/2015 2:[address] ABD/PEL W IV ONLY ??Acc#: ??[id number] DATE OF EXAM: ??Oct 26 2015 CLINICAL HISTORY: Abdominal pain. RESULT: Following administration of 100 ml Optiray 320 axial images of the abdomen and pelvis were obtained. ??Coronal reconstructions were performed. ??Correlation with a stone protocol CT from 10/25/09 is made. Correlation with an abdominal ultrasound from 05/15/12 is also performed. Limited views through the lung bases reveal no acute pulmonary findings. The liver, spleen, pancreas, kidneys, and adrenal glands are normal. ??No gallstones or obvious gallbladder wall thickening is seen. ??The large and small bowel appear overall normal in caliber and configuration. ??No free intraperitoneal air or evidence of obstruction is seen. ??No suspicious mesenteric or retroperitoneal lymphadenopathy is noted. ??The aorta is normal in appearance. A few sigmoid diverticula are seen without evidence of acute diverticulitis noted. ??A normal appearing appendix is present. ??The pelvic viscera are overall normal. ??Free pelvic fluid is seen. ??The urinary bladder is unremarkable. IMPRESSION: 1. SIGMOID DIVERTICULOSIS WITHOUT EVIDENCE OF ACUTE DIVERTICULITIS. 2. NORMAL APPENDIX. 3. FREE PELVIC FLUID OF UNKNOWN ETIOLOGY. 4. LOW ATTENUATION STRUCTURE SURROUNDING THE CERVIX CONSISTENT WITH A CONTROL DEVICE. Results reported to Dr. Oquendo in the ER at 1155 on 10/26/15. Interpreting Physician: ??ZACH AGRAWAL M.D. ??Read on: ??Oct 26 2015 11:56A Transcribed by: ??[email or web address] ??On: Oct 26 2015 ??1:14P Approved Electronically by: ??ZACH AGRAWAL M.D. ??on: ??Oct 26 2015 2:39P Attending: ??MARC SINGH Requesting: ??MARC SINGH Requesting Fax: ??-- Attending Fax: ??-- Attending ID: ??[id number] Requesting ID: ??[id number] Report To 1 ID: ??[id number] Report To 1 Name: ??MARC SINGH Report To 1 FAX: ??-- NextGen Order #: Procedure Note Provider, MD Sam - 09/29/2016 CT ABD/PEL W IV ONLY Acc#: [id number] DATE OF EXAM: Oct 26 2015 CLINICAL HISTORY: Abdominal pain. RESULT: Following administration of 100 ml Optiray 320 axial images of theabdomen and pelvis were obtained. Coronal reconstructions were performed.Correlation with a stone protocol CT from 10/25/09 is made. Correlationwith an abdominal ultrasound from 05/15/12 is also performed. Limitedviews through the lung bases reveal no acute pulmonary findings. Theliver, spleen, pancreas, kidneys, and adrenal glands are normal. Nogallstones or obvious gallbladder wall thickening is seen. The large andsmall bowel appear overall normal in caliber and configuration. No freeintraperitoneal air or evidence of obstruction is seen. No suspiciousmesenteric or retroperitoneal lymphadenopathy is noted. The aorta isnormal in appearance. A few sigmoid diverticula are seen without evidenceof acute diverticulitis noted. A normal appearing appendix is present.The pelvic viscera are overall normal. Free pelvic fluid is seen. Theurinary bladder is unremarkable. IMPRESSION: 1. SIGMOID DIVERTICULOSIS WITHOUT EVIDENCE OF ACUTE DIVERTICULITIS. 2. NORMAL APPENDIX. 3. FREE PELVIC FLUID OF UNKNOWN ETIOLOGY. 4. LOW ATTENUATION STRUCTURE SURROUNDING THE CERVIX CONSISTENT WITH ABIRTH CONTROL DEVICE. Results reported to Dr. Oquendo in the ER at 1155on 10/26/15. Interpreting Physician: ZACH AGRAWAL M.D. Read on: Oct 26 201511:56A Transcribed by: maximo On: Oct 26 2015 1:14P Approved Electronically by: ZACH AGRAWAL M.D. on: Oct 26 20152:39P Attending: MARC SINGH Requesting: MARC SINGH Requesting Fax: -- Attending Fax: -- Attending ID: [id number] Requesting ID: [id number] Report To 1 ID: [id number] Report To 1 Name: MARC SINGH Report To 1 FAX: -- NextGen Order #: us Historical Provider MD LOCO CT PROCEDURES Final R esult * (ABNORMAL) Plasma comprehensive metabolic panel (10/26/2015 10:20 AM CDT) Sodium 141 135 - 145 mmol/L HISTORICAL RESULTS K, pl 3.6 3.5 - 5.1 mmol/L HISTORICAL RESULTS Chloride 104 97 - 110 mmol/L HISTORICAL RESULTS CO2 22 22 - 32 mmol/L HISTORICAL RESULTS A. gap 19(H) 8 - 16 mmol/L HISTORICAL RESULTS Glucose 94 70 - 199 mg/dl HISTORICAL RESULTS Comment: Interpretive Data Note:The glucose is assumed non fasting Fastin-99 mg/dL Random: ??70-199 mg/dL Either a fasting glucose > 126 mg/dL or a random glucose > 200 mg/dL plus symptoms is diagnostic of diabetes when confirmed on another day. Fasting values > 100 mg/dL but < 125 mg/dL are diagnostic of impaired fasting glucose. Current interpretive data was last revised on 2014. BUN 7.5(L) 8.0 - 25.0 mg/dl HISTORICAL RESULTS Creatinine 0.80 0.60 - 1.10 mg/dl HISTORICAL RESULTS BUN/creat ratio 9(L) 10 - 20 HIST ORICAL RESULTS Calcium 9.3 8.6 - 10.2 mg/dl HISTORICAL RESULTS Protein, sr 6.7 6.0 - 8.4 g/dl HISTORICAL RESULTS Alb 4.1 3.6 - 5.0 g/dl HISTORICAL RESULTS Alk phos 33(L) 40 - 130 Units/L HISTORICAL RESULTS ALT 15 5 - 45 Units/L HISTORICAL RESULTS AST 15 10 - 40 Units/L HISTORICAL RESULTS Bilirubin 0.4 <=1.2 mg/dl HISTORICAL RESULTS Plasma 10/26/2015 10:2 0 AM CDT us Historical Provider LAB BLOOD ORDERABLES Vi l Result HISTORICAL RESULTS * Serum chorionic gonadotropin (HCG), quantitative (10/26/2015 10:20 AM CDT) HCG, quant <5.0 0.0 - 5.0 IUnits/L HISTORICAL RESULTS Comment: Interpretive Data Negative: ? <5 mIU/mL ? Borderline: ??6-25 mIU/mL Positive: ? >25 mIU/mL Approx Gest Age ? Approx HCG Concentration 3 - 4 Weeks ?9 - 130 4 - 5 Weeks ?75 - 2600 5 - 6 Weeks ?850 - 20,800 6 - 7 Weeks ?4000 - 100,200 7 - 12 Weeks ? 52758 - 289,000 16 - 29 Weeks ? 32737 - 137,000 29 - 41 Weeks ? 900 - 60,000 Current interpretive data was last revised on 2014 Serum 10/26/2015 10:2 0 AM CDT Historical Provider MD LAB BLOOD ORDERABLES Vi l Result Performing Organization Address [facility] de Phone Number HISTORICAL RESULTS * Serum lipase (10/26/2015 10:20 AM CDT) Lip 47 10 - 70 Units/L HISTORICAL RESULTS Serum 10/26/2015 10:2 0 AM CDT Historical Provider MD LAB BLOOD ORDERABLES Vi l Result Performing Organization Address [facility] de Phone Number HISTORICAL RESULTS * Serum magnesium (10/26/2015 10:20 AM CDT) Magnesium 2.1 1.6 - 2.4 mg/dl HISTORICAL RESULTS Serum 10/26/2015 10:2 0 AM CDT Historical Provider LAB BLOOD ORDERABLES Vi l Result HISTORICAL RESULTS * Serum amylase (10/26/2015 10:20 AM CDT) Aliyah, pl 66 30 - 100 Units/L HISTORICAL RESULTS Serum 10/26/2015 10:2 0 AM CDT Historical Provider LAB BLOOD ORDERABLES Vi l Result Performing Organization Address [facility] de Phone Number HISTORICAL RESULTS * Blood cell morphologic exam (10/26/2015 10:20 AM CDT) Neutrophils 59.6 44.0 - 80.0 % HISTORICAL RESULTS Immature granulocytes 0.2 0.0 - 1.0 % HISTORICAL RESULTS Lymphocytes 31.2 13.0 - 44.0 % HISTORICAL RESULTS Monos 6.7 2.0 - 11.0 % HISTORICAL RESULTS Eosinophils 1.7 0.0 - 6.0 % HISTORICAL RESULTS Basophils 0.6 0.0 - 3.0 % HISTORICAL RESULTS Neutrophils, abs 3.2 1.6 - 7.0 K/cumm HISTORICAL RESULTS Immature granulocyte, abs 0.0 0.0 - 0.2 K/cumm HISTORICAL RESULTS Lymphocytes, abs 1.7 0.5 - 4.3 K/cumm HISTORICAL RESULTS Monocytes, absolute 0.4 0.1 - 1.0 K/cumm HISTORICAL RESULTS Eosinophils, abs 0.1 0.0 - 0.6 K/cumm HISTORICAL RESULTS Basophils, abs 0.0 0.0 - 0.3 K/cumm HISTORICAL RESULTS Blood specimen (specimen) 10/26/2015 10:20 AM CDT Historical Provider LAB BLOOD ORDERABLES Vi l Result HISTORICAL RESULTS * Blood cell count (CBC), morphologic exam (10/26/2015 10:20 AM CDT) WBC 5.4 3.8 - 9.8 K/cumm HISTORICAL RESULTS RBC 4.25 3.90 - 5.00 M/cumm HISTORICAL RESULTS Hgb 13.1 12.1 - 15.1 g/dl HISTORICAL RESULTS Hct 37.9 36.1 - 44.3 % HISTORICAL RESULTS MCV 89.2 80.0 - 100.0 fl HISTORICAL RESULTS MCH 30.8 26.7 - 33.7 pg HISTORICAL RESULTS MCHC 34.6 32.7 - 36.0 g/dl HISTORICAL RESULTS Rdw 11.8 11.5 - 14.6 % HISTORICAL RESULTS Platelets 189 140 - 440 K/cumm HISTORICAL RESULTS MPV 11.0 8.0 - 12.0 fl HISTORICAL RESULTS NRBC 0.0 0.0 - 0.0 % HISTORIC AL RESULTS NRBC, abs 0.00 0.00 - 0.00 K/cumm HISTORICAL RESULTS Blood specimen (specimen) 10/26/2015 10:20 AM CDT Historical Provider LAB BLOOD ORDERABLES Vi murry Result HISTORICAL RESULTS * Serum estimated glomerular filtration rate (10/26/2015 10:20 AM CDT) eGFR >60 ml/min/1.7 3 m2 HISTORICAL RESULTS Comment: Interpretation of Estimated GFR (eGFR): Normal ?>/= 60 mL/min/1.73m2 Possible Chronic Kidney Disease ??15 - 59 mL/min/1.73m2 Possible Kidney Failure ?< 15 ??mL/min/1.73m2 If -Ivorian multiply value by 1.16. ??Estimated glomerular filtration rate is determined by the CKD-EPI equation recommended by the National Kidney Foundation (KDIGO 2012 Clinical Practice Guideline for the Evaluation and Management of Chronic Kidney Disease. ??Kidney Intnl Suppl Jun 2012;3:1). ??The CKD-EPI equation should not be used in acute renal failure or acute kidney injury and is not valid in children. Serum 10/26/2015 10:2 0 AM CDT Historical Provider LAB BLOOD ORDERABLES Vi l Result Performing Organization Address [facility] [[email or web address]] Co de Phone Number HISTORICAL RESULTS * Urine (aerobic) culture (10/26/2015 10:05 AM CDT) Urine, clean voided (Unknown) 10/26/2015 10:05 AM CDT Narrative HISTORICAL RESULTS - 10/28/2015 6:56 AM CDT Greater than 100,000 colonies/ml of Multiple Gram Positive organisms Routine susceptibility testing not performed. Historical Provider LAB MICROBIOLOGY - GENERA L ORDERABLES Final Result Performing Organization Address [facility] de Phone Number HISTORICAL RESULTS * (ABNORMAL) Urinalysis (10/26/2015 10:05 AM CDT) Color, ur Dark Yellow Yellow HISTORIC AL RESULTS Clarity, ur Clear Clear HISTORIC AL RESULTS Specific gravity, ur 1.027 1.003 - 1.030 HISTORICAL RESULTS Comment:Normal Ranges: 1.003 -1.030 pH, ur 6.0 4.5 - 8.0 HISTORICAL RESULTS Comment:Normal ranges: 4.5-8 .0 Protein, ur, quant Trace Negative mg/dl HISTORICAL RESULTS Glucose, ur, quant Negative Negative mg/dl HISTORICAL RESULTS Ketones, ur Negative Negative HISTORIC AL RESULTS Bilirubin, ur Negative Negative HISTOR ICAL RESULTS U Blood Negative Negative HISTORICAL RESULTS Urobilinogen, quant, ur 1.0 0.2 - 1.0 Horacio Units/dl HISTORICAL RESULTS Comment:Normal Ranges: 0.2-1 .0 EU/dL Nitrites, ur Negative Negative HISTORI CARLITOS RESULTS Leukocyte esterase, ur Trace(A) Negative HISTORICAL RESULTS Urine 10/26/2015 10:0 5 AM CDT Historical Provider LAB BLOOD ORDERABLES Vi l Result Performing Organization Address [facility] [[email or web address]] Co de Phone Number HISTORICAL RESULTS * (ABNORMAL) Urine microscopy (10/26/2015 10:05 AM CDT) RBC, ur 0 - 2 0 - 2 /hpf HISTORICA L RESULTS WBC, ur 10 - 25(A) 0 - 2 /hpf HISTORIC AL RESULTS Bacteria, ur Negative Negative HISTORI CARLITOS RESULTS Mucus, ur Present(A) Not Present HISTORI CARLITOS RESULTS Hyaline casts 10 - 30(A) 0 - 2 /lpf HIST ORICAL RESULTS Epithelial cells, ur 5 - 10(A) 0 - 2 /hpf HISTORICAL RESULTS Urine 10/26/2015 10:0 5 AM CDT Historical Provider LAB BLOOD ORDERABLES Vi l Result HISTORICAL RESULTS * DISCHARGE LABORATORY CUMULATIVE REPORT (10/26/2015) Narrative 10/26/2015 Ordered by an unspecified provider. Historical Provider LAB BLOOD ORDERABLES Vi l Result documented in this encounter Visit Diagnoses Diagnosis Abdominal pain Abdominal pain, unspecified site Vomiting Vomiting alone Cigarette nicotine dependence, uncomplicated Diverticulosis of intestine without perforation or abscess without bleeding Epigastric pain Abdominal pain, epigastric Diarrhea, unspecified type documented in this encounter
--- OUTSIDE RECORDS SUMMARY | 2024-06-09 08:02 | XMS_ITS | Encounter Summary ---
Author Organization [facility] Medical Group Address [address] [place] [address] Care Team Providers Care Rn International Name Role Phone Carmen Brown MD Primary Care Provider Reason for Visit * Reason Onset Date Comments Mehran 11/26/2016 Encounter Details Date Type Department Care Team (Late st Contact Info) Description 11/26/2016 Telephone [facility] [address] [place] [id number] Vernell Jasso, RN Mehran Social History Tobacco Use Types Packs/Day Years Used Date Smoking Tobacco: Never Assessed Comments Yes Sex and Gender Information Value Date Recorded Sex Assigned at Not on file Legal Sex Female 3:43 AM ACCOUNT RESOLUTION EXPERT Gender Identity Not on file Sexual Orientation Not on file documented as of this encounter Miscellaneous Notes * Telephone Encounter - Vernell Jasso RN - 11/26/2016 10:16 AM CDT Pt called today, 32 4, stating that she is having 8 painful contractions in an hour, back pain and feeling her contractions in her vagina and rectal. Pt advised to go to [facility] for an evaluation. Pt receptive. documented in this encounter Plan of Treatment Upcoming Encounters Date Type Department Care Team (Latest Contact Info) Description 07/25/2024 12:30 PM ACCOUNT RESOLUTION EXPERT Hospital Encounter [facility] [address] [place] [address] Yves Krishna MD [address] [place] [address] [address] [place] [address] 07/25/2024 12:30 PM ACCOUNT RESOLUTION EXPERT - 07/25/2024 1:25 PM ACCOUNT RESOLUTION EXPERT Surgery [facility] [address] [place] [address] Yves Krishna MD [address] [place] [address] [address] [place] [address] ESOPHAGOGASTRODUODENOSCOPY Scheduled Procedures Name Priority Associated Diagnoses Date/Ti me ESOPHAGOGASTRODUODENOSCOPY Epigastric pain Diarrhea, unspecified type 07/25/2024 12:30 PM ACCOUNT RESOLUTION EXPERT COLONOSCOPY Epigastric pain Diarrhea, unspecified type 07/25/2024 12:30 PM ACCOUNT RESOLUTION EXPERT documented as of this encounter Visit Diagnoses Not on filedocumented in this encounter Care Teams Rn International Relationship Specialty Start Date End Date Carmen Brown MD PCP - General Family Practice 11/02/16 06/02/22 documented as of this encounter
--- OUTSIDE RECORDS SUMMARY | 2024-06-09 08:02 | XMS_ITS | Encounter Summary ---
Author Organization [facility] Healthcare Address [address] [place] [address] Care Team Providers Care Base Draw Operator Name Role Phone Unavailable Primary Care Provider Unavailabl e Encounter Details Date Type Department Care Team (Late st Contact Info) Description 07/08/2016 1:01 PM SHAPER AND PRESSER - 07/08/2016 11:59 PM SHAPER AND PRESSER Hospital Encounter [facility] Andrea Calderon MD [address] [facility] [facility] [address] [place] [address] Radha Sun NP [address] [facility] TANVIR [address] [place] [id number] Frequency of micturition; Painful micturition Social History Tobacco Use Types Packs/Day Years Used Date Smoking Tobacco: Never Assessed Comments Unknown Sex and Gender Information Value Date Recorded Sex Assigned at Not on file Legal Sex Female 3:43 AM SHAPER AND PRESSER Gender Identity Not on file Sexual Orientation Not on file documented as of this encounter Medications at Time of Discharge cholecalciferol (VITAMIN D3) 2,000 unit tablet take 1 tablet by oral route every day 30 6 07/03/2016 12/16/2016 etonogestrel-ethi nyl estradiol (NUVARING) 0.12-0.015 mg/24 hr vaginal ring insert 1 vaginal ring by vaginal route every month leave in place for 3 weeks, remove for 1 week 1 12 04/23/2015 01/10/2017 ondansetron (ZOFRAN, HYDROCHLORIDE,) 4 mg tablet take 2 tablet by oral route every 8 hours for 2 days 0 0 04/21/2016 02/25/[address] (PROTONIX) 40 mg EC tablet take 1 tablet by oral route every day 0 0 04/21/2016 02/25/[address] [facility] no.[id number] (CHIEF ELECTRICIAN-PNV-DHA) 28 mg iron- 1 mg-200 mg capsule take 1 capsule by oral route every day 30 11 07/06/2016 10/18/2017 sertraline (ZOLOFT) 25 mg tablet take 1 tablet by oral route every morning 0 0 04/21/2016 01/10/2017 documented as of this encounter Plan of Treatment Upcoming Encounters Date Type Department Care Team (Latest Contact Info) Description 07/25/2024 12:30 PM SHAPER AND PRESSER Hospital Encounter [address] [address]Yves Franklin MD [address] [place] [address] [place] [address] 07/25/2024 12:30 PM SHAPER AND PRESSER - 07/25/2024 1:25 PM SHAPER AND PRESSER Surgery [address] [address] Yves Krishna MD [address] [place] [address] [address] [place] [address] ESOPHAGOGASTRODUODENOSCOPY Scheduled Procedures Name Priority Associated Diagnoses Date/Ti mn ESOPHAGOGASTRODUODENOSCOPY Epigastric pain Diarrhea, unspecified type 07/25/2024 12:30 PM SHAPER AND PRESSER COLONOSCOPY Epigastric pain Diarrhea, unspecified type 07/25/2024 12:30 PM SHAPER AND PRESSER documented as of this encounter Procedures Procedure Name Priority Date/Time Associated Diagnosis Comments URINE (AEROBIC) CULTURE, CDR Routine 07/08/2016 1:04 PM SHAPER AND PRESSER URINE MICROSCOPY Routine 07/08/2016 1:04 PM SHAPER AND PRESSER URINALYSIS Routine 07/08/2016 7:04 AM SHAPER AND PRESSER DISCHARGE LABORATORY CUMULATIVE REPORT 07/08/2016 documented in this encounter Results * (ABNORMAL) Urine microscopy (07/08/2016 1:04 PM SHAPER AND PRESSER) RBC, ur 0 - 2 0 - 2 /hpf CDR HISTO RICAL RESULTS WBC, ur 2 - 5(A) 0 - 2 /hpf CDR HISTO RICAL RESULTS Bacteria, ur Negative Negative CDR HIS TORICAL RESULTS Hyaline casts Not Seen 0 - 2 CDR HI STORICAL RESULTS Epithelial cells, ur 5 - 10(A) 0 - 2 /hpf CDR HISTORICAL RESULTS Urine 07/08/2016 1:04 PM SHAPER AND PRESSER Historical Provider MD LAB BLOOD ORDERABLES Vi l Result Performing Organization Address [facility] de Phone Number CDR HISTORICAL RESULTS * Urine (aerobic) culture (07/08/2016 1:04 PM SHAPER AND PRESSER) Urine (Unknown) 07/08/2016 1 :04 PM SHAPER AND PRESSER 07/08/2016 3:20 PM SHAPER AND PRESSER [facility] Provider LAB MICROBIOLOGY - GENERA L ORDERABLES Final Result Performing Organization Address [facility] de Phone Number CDR HISTORICAL RESULTS * (ABNORMAL) Urinalysis (07/08/2016 7:04 AM SHAPER AND PRESSER) Color, ur Yellow Yellow CDR HISTOR ICAL RESULTS Clarity, ur Clear Clear CDR HIST ORICAL RESULTS Specific gravity, ur 1.022 1.003 - 1.030 CDR HISTORICAL RESULTS Comment:Normal Ranges: 1.003 -1.030 pH, ur 6.5 4.5 - 8.0 CDR HISTOR ICAL RESULTS Comment:Normal ranges: 4.5-8 .0 Protein, ur, quant Negative Negative mg/dl CDR HISTORICAL RESULTS Glucose, ur, quant Negative Negative mg/dl CDR HISTORICAL RESULTS Ketones, ur Negative Negative CDR HIST ORICAL RESULTS Bilirubin, ur Negative Negative CDR HI STORICAL RESULTS U Blood Negative Negative CDR HISTOR ICAL RESULTS Urobilinogen, quant, ur 1.0 0.2 - 1.0 Horacio Units/dl CDR HISTORICAL RESULTS Comment:Normal Ranges: 0.2-1 .0 EU/dL Nitrites, ur Negative Negative CDR HIS TORICAL RESULTS Leukocyte esterase, ur Trace(A) Negative CDR HISTORICAL RESULTS Urine 07/08/2016 7:04 AM SHAPER AND PRESSER Narrative CDR HISTORICAL RESULTS - 07/08/2016 7:34 AM SHAPER AND PRESSER CLEAN VOID us Historical Provider LAB BLOOD ORDERABLES Vi l Result CDR HISTORICAL RESULTS * DISCHARGE LABORATORY CUMULATIVE REPORT (07/08/2016) Narrative 07/08/2016 Ordered by an unspecified provider. us Historical Provider LAB BLOOD ORDERABLES Vi l Result documented in this encounter Visit Diagnoses Diagnosis Frequency of micturition Urinary frequency Painful micturition Dysuria Epigastric pain Abdominal pain, epigastric Diarrhea, unspecified type documented in this encounter
--- OUTSIDE RECORDS SUMMARY | 2024-06-09 08:02 | XMS_ITS | Encounter Summary ---
Author Organization [facility] Healthcare Address [address] [place] [address] Care Team Providers Care Overlock Sleeve Setter Name Role Phone Unavailable Primary Care Provider Unavailabl e Encounter Details Date Type Department Care Team (Late st Contact Info) Description 08/29/2016 4:47 PM CDT - 08/29/2016 8:30 PM CDT Hospital Encounter [facility] Andrea Addison MD [address] [place] [address] [address] Discharge Disposition: Discharge to home or self care Social History Tobacco Use Types Packs/Day Years Used Date Smoking Tobacco: Never Assessed Comments Unknown Sex and Gender Information Value Date Recorded Sex Assigned at Not on file Legal Sex Female 3:43 AM SUPERVISOR DRYING Gender Identity Not on file Sexual Orientation [...] for 2 days 0 0 04/21/2016 02/25/2017 oseltamivir (TAMIFLU) 75 mg capsule take 1 capsule by oral route every day x 10 days 10 0 08/05/2016 11/16/[address] (PROTONIX) 40 mg EC tablet take 1 tablet by oral route every day 0 0 04/21/2016 02/25/2017 [id number] (FAMILY PARTNER-PNV-DHA) 28 mg iron- 1 mg-200 mg capsule take 1 capsule by oral route every day 30 11 07/06/2016 10/18/2017 sertraline (ZOLOFT) 25 mg tablet take 1 tablet by oral route every morning 0 0 04/21/2016 01/10/2017 documented as of this encounter Discharge Disposition Disposition Code Departure Means Destination Discharge to home or self care documented in this encounter Plan of Treatment Upcoming Encounters Date Type Department Care Team (Latest Contact Info) Description 07/25/2024 12:30 PM SUPERVISOR DRYING Hospital Encounter [address] [address] Yves Krishna MD [address] [place] [address] [address] [place] [address] 07/25/2024 12:30 PM SUPERVISOR DRYING - 07/25/2024 1:25 PM SUPERVISOR DRYING Surgery [address] [address] Yves Krishna MD [address] [place] [address] [address] [place] [address] ESOPHAGOGASTRODUODENOSCOPY Scheduled Procedures Name Priority Associated Diagnoses Date/Ti nv ESOPHAGOGASTRODUODENOSCOPY Epigastric pain Diarrhea, unspecified type 07/25/2024 12:30 PM SUPERVISOR DRYING COLONOSCOPY Epigastric pain Diarrhea, unspecified type 07/25/2024 12:30 PM SUPERVISOR DRYING documented as of this encounter Visit Diagnoses Not on filedocumented in this encounter
--- OUTSIDE RECORDS SUMMARY | 2024-06-09 08:02 | XMS_ITS | Encounter Summary ---
Author Organization [facility] Address [address] [facility] [address] [place] [address] Care Team Providers Care Trade Economist Name Role Phone Carmen Brown MD Primary Care Provider Reason for Visit * Reason Comments Routine Visit Encounter Details Date Type Department Care Team (Late st Contact Info) Description 11/17/2016 9:45 AM CDT Routine [facility] [address] [facility] [address] [place] [address] Radha Sun, MANAGER CHINESE [address] [facility] [address] [place] [address] care, subsequent , third trimester (Primary Dx); 31 weeks gestation of Social History Tobacco Use Types Packs/Day Years Used Date Smoking Tobacco: Never Assessed Comments Yes Sex and Gender Information Value Date Recorded Sex Assigned at Not on file Legal Sex Female 3:43 AM CYBER ENGINEER Gender Identity Not on file Sexual Orientation Not on file documented as of this encounter Last Filed Vital Signs Vital Sign Reading Time Taken Comments Blood Pressure 110/60 11/17/2016 10:44 AM CDT Pulse - - Temperature - - Respiratory Rate - - Oxygen Saturation - - Inhaled Oxygen Concentration - - Weight 77.1 kg (170 lb) 11/17/2016 10:12 AM CDT Height - - Body Mass Index 30.11 04/21/2016 8:52 AM CYBER ENGINEER documented in this encounter Progress Notes * Radha Sun WHNP - 11/17/2016 9:45 AM CDT Pt. Having occasional Sukumar Calles; working 30 hrs per week and tolerating well. documented in this encounter Miscellaneous Notes * Assessment & Plan Note - Vernell Jasso RN - 11/17/2016 10:01 AM CDT Associated Problem(s): Rh negative, antepartum (Resolved 08/30/2017) Rhogam given on 11-02-16 documented in this encounter Plan of Treatment Upcoming Encounters Date Type Department Care Team (Latest Contact Info) Description 07/25/2024 12:30 PM CYBER ENGINEER Hospital Encounter [address] [address] Yves Krishna MD [address] [place] [address] [address] [place] [address] 07/25/2024 12:30 PM CYBER ENGINEER - 07/25/2024 1:25 PM CYBER ENGINEER Surgery [address] [address] Yves Krishna MD [address] [place] [address] [address] [place] [address] ESOPHAGOGASTRODUODENOSCOPY Scheduled Procedures Name Priority Associated Diagnoses Date/Ti mo ESOPHAGOGASTRODUODENOSCOPY Epigastric pain Diarrhea, unspecified type 07/25/2024 12:30 PM CYBER ENGINEER COLONOSCOPY Epigastric pain Diarrhea, unspecified type 07/25/2024 12:30 PM CYBER ENGINEER documented as of this encounter Procedures Procedure Name Priority Date/Time Associated Diagnosis Comments POCT URINALYSIS DIPSTICK Routine 11/17/2016 10:08 AM CDT care, subsequent , third trimester documented in this encounter Results * POCT urinalysis dipstick (11/17/2016 10:08 AM CDT) Glucose, ur, POC Negative mmol/L Protein, ur, POC Trace mg/dL Lot Number [id number] Urine 11/17/2016 10:0 8 AM CDT Radha Sun MANAGER CHINESE POINT OF CARE TEST ORDERA BLES Final Result documented in this encounter Visit Diagnoses Diagnosis care, subsequent , third trimester- Primary 31 weeks gestation of Epigastric pain Abdominal pain, epigastric Diarrhea, unspecified type documented in this encounter Care Teams Trade Economist Relationship Specialty Start Date End Date Carmen Brown MD PCP - General Family Practice 11/02/16 06/02/22 documented as of this encounter
--- OUTSIDE RECORDS SUMMARY | 2024-06-09 08:02 | XMS_ITS | Encounter Summary ---
Author Organization [facility] Healthcare Address [address] [place] [address] Care Team Providers Care Dough Molder Name Role Phone Unavailable Primary Care Provider Unavailabl e Encounter Details Date Type Department Care Team (Late st Contact Info) Description 05/17/2016 11:49 AM HAZARDOUS MATERIALS TANKER DRIVER - 05/17/2016 11:59 PM HAZARDOUS MATERIALS TANKER DRIVER Hospital Encounter [facility] Andrea Calderon MD [address] [facility] [address] [place] [address] Radha Sun NP [address] [facility] [address] [place] [address] Irregular menstruation Social History Tobacco Use Types Packs/Day Years Used Date Smoking Tobacco: Never Assessed Comments Unknown Sex and Gender Information Value Date Recorded Sex Assigned at Not on file Legal Sex Female 3:43 AM HAZARDOUS MATERIALS TANKER DRIVER Gender Identity Not on file Sexual Orientation [...] route every day 0 0 04/21/2016 02/25/2017 sertraline (ZOLOFT) 25 mg tablet take 1 tablet by oral route every morning 0 0 04/21/2016 01/10/2017 documented as of this encounter Plan of Treatment Upcoming Encounters Date Type Department Care Team (Latest Contact Info) Description 07/25/2024 12:30 PM HAZARDOUS MATERIALS TANKER DRIVER Hospital Encounter [facility] [address] [place] [address] Yves Krishna MD [address] [facility] [address] [place] [address] 07/25/2024 12:30 PM HAZARDOUS MATERIALS TANKER DRIVER - 07/25/2024 1:25 PM HAZARDOUS MATERIALS TANKER DRIVER Surgery [address] [address] Yves Krishna MD [address] [facility] [address] [place] [address] ESOPHAGOGASTRODUODENOSCOPY Scheduled Procedures Name Priority Associated Diagnoses Date/Ti me ESOPHAGOGASTRODUODENOSCOPY Epigastric pain Diarrhea, unspecified type 07/25/2024 12:30 PM HAZARDOUS MATERIALS TANKER DRIVER COLONOSCOPY Epigastric pain Diarrhea, unspecified type 07/25/2024 12:30 PM HAZARDOUS MATERIALS TANKER DRIVER documented as of this encounter Procedures Procedure Name Priority Date/Time Associated Diagnosis Comments SERUM CHORIONIC GONADOTROPIN (HCG), QUANTITATIVE Routine 05/17/2016 5:59 AM HAZARDOUS MATERIALS TANKER DRIVER REFERRED TEST Routine 05/17/2016 5:59 AM HAZARDOUS MATERIALS TANKER DRIVER REFERENCE LABORATORY MISCELLANEOUS TESTING 05/17/2016 DISCHARGE LABORATORY CUMULATIVE REPORT 05/17/2016 documented in this encounter Results * Referred test (05/17/2016 5:59 AM HAZARDOUS MATERIALS TANKER DRIVER) Test name, chem Progesterone CDR HISTORICAL RESULTS Referral specimen, test result See scanned report in Clinical desktop CDR HISTORICAL RESULTS Referral specimen, reference range See report CDR HISTORICAL RESULTS Referral lab, chem [facility] CDR HISTORICAL RESULTS Miscellaneous 05/17/2016 5:5 9 AM HAZARDOUS MATERIALS TANKER DRIVER Narrative CDR HISTORICAL RESULTS - 05/24/2016 3:17 AM HAZARDOUS MATERIALS TANKER DRIVER PROGESTERONE-IDPA Historical Provider MD LAB BLOOD ORDERABLES Vi murry Result CDR HISTORICAL RESULTS * (ABNORMAL) Serum chorionic gonadotropin (HCG), quantitative (05/17/2016 5:59 AM HAZARDOUS MATERIALS TANKER DRIVER) HCG, quant 1373.0(H) 0.0 - 5.0 IUnits/L CDR HISTORICAL RESULTS Comment: Interpretive Data Negative: ? <5 mIU/mL ? Borderline: ??6-25 mIU/mL Positive: ? >25 mIU/mL Approx Gest Age ? Approx HCG Concentration 3 - 4 Weeks ?9 - 130 4 - 5 Weeks ?75 - 2600 5 - 6 Weeks ?850 - 20,800 6 - 7 Weeks ?4000 - 100,200 7 - 12 Weeks ? [address] - 289,000 16 - 29 Weeks ? [address] - 137,000 29 - 41 Weeks ? 900 - 60,000 Current interpretive data was last revised on 2014 Serum 05/17/2016 5:59 AM HAZARDOUS MATERIALS TANKER DRIVER Narrative CDR HISTORICAL RESULTS - 05/17/2016 6:57 AM HAZARDOUS MATERIALS TANKER DRIVER FAX RESULTS TO [phone] Historical Provider MD LAB BLOOD ORDERABLES Vi murry Result Performing Organization Address [facility] Co de Phone Number CDR HISTORICAL RESULTS * DISCHARGE LABORATORY CUMULATIVE REPORT (05/17/2016) Narrative 05/17/2016 Ordered by an unspecified provider. Historical Provider MD LAB BLOOD ORDERABLES Vi l Result * REFERENCE LABORATORY MISCELLANEOUS TESTING (05/17/2016) Narrative 05/17/2016 Ordered by an unspecified provider. Historical Provider LAB BLOOD ORDERABLES Vi l Result documented in this encounter Visit Diagnoses Diagnosis Irregular menstruation Irregular menstrual cycle Epigastric pain Abdominal pain, epigastric Diarrhea, unspecified type documented in this encounter
--- OUTSIDE RECORDS SUMMARY | 2024-06-09 08:02 | XMS_ITS | Encounter Summary ---
Author Organization [facility] Healthcare Address [address] [place] [address] Care Team Providers Care Screen Printing Paster Name Role Phone Unavailable Primary Care Provider Unavailabl e Encounter Details Date Type Department Care Team (Late st Contact Info) Description 10/27/2015 9:54 AM CDT - 10/27/2015 11:59 PM CDT Hospital Encounter [facility] JULESCONBk Anthony MD [address] [place] [address] Marc Zurita Jr., MD [address] [facility] [place] [address] Abdominal pain Social History Tobacco Use Types Packs/Day Years Used Date Smoking Tobacco: Never Assessed Comments Unknown Sex and Gender Information Value Date Recorded Sex Assigned at Not on file Legal Sex Female 3:43 AM SET UP MOLD TECHNICIAN Gender Identity Not on file Sexual Orientation [...] (Latest Contact Info) Description 07/25/2024 12:30 PM SET UP MOLD TECHNICIAN Hospital Encounter [facility] [address] [place] [address] Yves Krishna MD [address] [facility] [place] [address] 07/25/2024 12:30 PM SET UP MOLD TECHNICIAN - 07/25/2024 1:25 PM SET UP MOLD TECHNICIAN Surgery [facility] [address] [place] [address] Yves Krishna MD [address] [place] [address] [place] [address] ESOPHAGOGASTRODUODENOSCOPY Scheduled Procedures Name Priority Associated Diagnoses Date/Ti me ESOPHAGOGASTRODUODENOSCOPY Epigastric pain Diarrhea, unspecified type 07/25/2024 12:30 PM SET UP MOLD TECHNICIAN COLONOSCOPY Epigastric pain Diarrhea, unspecified type 07/25/2024 12:30 PM SET UP MOLD TECHNICIAN documented as of this encounter Procedures Procedure Name Priority Date/Time Associated Diagnosis Comments GALLBLADDER SONOGRAPHY Routine 10/27/2015 10:53 AM CDT documented in this encounter Results * GALLBLADDER SONOGRAPHY (10/27/2015 10:53 AM CDT) Anatomical Region Laterality Modality N/A Ultrasound 10/27/2015 10:5 3 AM CDT Narrative 10/27/2015 1:36 PM CDT US Gallbladder ??Acc#: ??[id number] DATE OF EXAM: ??Oct 27 2015 CLINICAL HISTORY: Right upper quadrant abdominal pain. RESULT: Correlation is made to the CT scan from 10/26/15. Visualized portions of the aorta, IVC, pancreas, liver, gallbladder and right kidney are normal. ??There are no gallstones or dilated intrahepatic ducts and the common bile duct is normal at 3.2 mm. ??No free fluid is seen. IMPRESSION: NORMAL GALLBLADDER SONOGRAM. Interpreting Physician: ??JOELLE ARIAS M.D. ??Read on: ??Oct 27 2015 11:31A Transcribed by: ??maximo ??On: Oct 27 2015 ??1:08P Approved Electronically by: ??JOELLE ARIAS M.D. ??on: ??Oct 27 2015 ??1:36P Attending: ??BK HINOJOSA Requesting: ??DR BK HINOJOSA Requesting Fax: ??[phone] Attending Fax: ??-- Attending ID: ??[id number] Requesting ID: ??[id number] Report To 1 ID: ??[id number] Report To 1 Name: ??MARC ZURITA Report To 1 FAX: ??-- NextGen Order #: Procedure Note Provider, MD Sam - 09/29/2016 US Gallbladder Acc#: [id number] DATE OF EXAM: Oct 27 2015 CLINICAL HISTORY: Right upper quadrant abdominal pain. RESULT: Correlation is made to the CT scan from 10/26/15. Visualized portions ofthe aorta, IVC, pancreas, liver, gallbladder and right kidney are normal.There are no gallstones or dilated intrahepatic ducts and the common bileduct is normal at 3.2 mm. No free fluid is seen. IMPRESSION: NORMAL GALLBLADDER SONOGRAM. Interpreting Physician: JOELLE ARIAS M.D. Read on: Oct 27 2015 11:31A Transcribed by: maximo On: Oct 27 2015 1:08P Approved Electronically by: JOELLE ARIAS M.D. on: Oct 27 2015 1:36P Attending: BK HINOJOSA Requesting: DR BK HINOJOSA Requesting Attending Fax: -- Attending ID: [id number] Requesting ID: [id number] Report To 1 ID: [id number] Report To 1 Name: MARC ZURITA Report To 1 FAX: -- NextGen Order #: us Historical Provider MD LOCO US PROCEDURES Final R esult documented in this encounter Visit Diagnoses Diagnosis Abdominal pain Abdominal pain, unspecified site Epigastric pain Abdominal pain, epigastric Diarrhea, unspecified type documented in this encounter
--- OUTSIDE RECORDS SUMMARY | 2024-06-09 08:02 | XMS_ITS | Encounter Summary ---
Author Organization [facility] Healthcare Address [address] [place] [address] Care Team Providers Care Traffic Officer Name Role Phone Unavailable Primary Care Provider Unavailabl e Encounter Details Date Type Department Care Team (Late st Contact Info) Description 07/28/2016 1:42 PM MANUFACTURING PROCESS TECHNICIAN - 07/28/2016 3:43 PM [facility] Emergency [facility] Emergency Department [address] [place] [address] Matt Hopkins Jr., MD [address] [place] [address] Discharge Disposition: Discharge to home or self care Social History Tobacco Use Types Packs/Day Years Used Date Smoking Tobacco: Never Assessed Comments Unknown Sex and Gender Information Value Date Recorded Sex Assigned at Not on file Legal Sex Female 3:43 AM MANUFACTURING PROCESS TECHNICIAN Gender Identity Not on file Sexual [...] route every day 0 0 04/21/2016 02/25/2017 no.[id number] (WRITER EDITOR-PNV-DHA) 28 mg iron- 1 mg-200 mg capsule [...] (Latest Contact Info) Description 07/25/2024 12:30 PM MANUFACTURING PROCESS TECHNICIAN Hospital Encounter [address] [address] Yves Krishna MD [address] [place] [address] [address] [place] [address] 07/25/2024 12:30 PM MANUFACTURING PROCESS TECHNICIAN - 07/25/2024 1:25 PM MANUFACTURING PROCESS TECHNICIAN Surgery [address] [address] Yves Krishna MD [address] [place] [address] [address] [place] [address] ESOPHAGOGASTRODUODENOSCOPY Scheduled Procedures Name Priority Associated Diagnoses Date/Ti hi ESOPHAGOGASTRODUODENOSCOPY Epigastric pain Diarrhea, unspecified type 07/25/2024 12:30 PM MANUFACTURING PROCESS TECHNICIAN COLONOSCOPY Epigastric pain Diarrhea, unspecified type 07/25/2024 12:30 PM MANUFACTURING PROCESS TECHNICIAN documented as of this encounter Procedures Procedure Name Priority Date/Time Associated Diagnosis Comments AEROBIC CULTURE, CDR Routine 07/28/2016 2:31 PM MANUFACTURING PROCESS TECHNICIAN THROAT SWAB STREPTOCOCCUS RAPID ANTIGEN GROUP A Routine 07/28/2016 2:31 PM MANUFACTURING PROCESS TECHNICIAN documented in this encounter Results * Throat swab Streptococcus Rapid Antigen Group A (07/28/2016 2:31 PM MANUFACTURING PROCESS TECHNICIAN) Strep A ag oropharyngeal Negative Negative CDR HISTORICAL RESULTS Throat 07/28/2016 2:31 PM MANUFACTURING PROCESS TECHNICIAN Ander Constantino MD LAB BLOOD ORDERABLES Final Result Performing Organization Address [facility] Co de Phone Number CDR HISTORICAL RESULTS * Aerobic culture (07/28/2016 2:31 PM MANUFACTURING PROCESS TECHNICIAN) Throat (Unknown) 07/28/2016 2:31 PM MANUFACTURING PROCESS TECHNICIAN 07/28/2016 6:24 PM MANUFACTURING PROCESS TECHNICIAN Impressions CDR HISTORICAL RESULTS - 07/31/2016 9:17 AM MANUFACTURING PROCESS TECHNICIAN Note: This specimen has been examined for the presence of Streptococcus pyogenes, Streptococcus dysgalactiae, and Arcanobacterium haemolyticum. Current interpretive data was last revised on 2014. Narrative CDR HISTORICAL RESULTS - 07/31/2016 9:17 AM MANUFACTURING PROCESS TECHNICIAN No growth of pathogens. Historical Provider LAB MICROBIOLOGY - GENERA L ORDERABLES Final Result Performing Organization Address [facility] de Phone Number CDR HISTORICAL RESULTS documented in this encounter Visit Diagnoses Not on filedocumented in this encounter
--- OUTSIDE RECORDS SUMMARY | 2024-06-09 08:02 | XMS_ITS | Encounter Summary ---
Author Organization [facility] Healthcare Address [address] [place] [address] Care Team Providers Care English Faculty Member Name Role Phone Unavailable Primary Care Provider Unavailabl e Encounter Details Date Type Department Care Team (Late st Contact Info) Description 07/24/2011 2:28 PM FAIRING MAN - 07/24/2011 4:01 PM FAIRING MAN Hospital Encounter [facility] Neelam Sears MD 1 [facility] [place] [address] Disorder of bursae and tendons in shoulder region Social History Tobacco Use Types Packs/Day Years Used Date Smoking Tobacco: Never Assessed Comments Unknown Sex and Gender Information Value Date Recorded Sex Assigned at Not on file Legal Sex Female 3:43 AM FAIRING MAN Gender Identity Not on file Sexual Orientation Not on file documented as of this encounter Plan of Treatment Upcoming Encounters Date Type Department Care Team (Latest Contact Info) Description 07/25/2024 12:30 PM FAIRING MAN Hospital Encounter [address] [address] Yves Krishna MD 4 [facility] [address] 07/25/2024 12:30 PM FAIRING MAN - 07/25/2024 1:25 PM FAIRING MAN Surgery [address] [address]Yves Franklin MD 4 [facility] [place] [address] ESOPHAGOGASTRODUODENOSCOPY Scheduled Procedures Name Priority Associated Diagnoses Date/Ti me ESOPHAGOGASTRODUODENOSCOPY Epigastric pain Diarrhea, unspecified type 07/25/2024 12:30 PM FAIRING MAN COLONOSCOPY Epigastric pain Diarrhea, unspecified type 07/25/2024 12:30 PM FAIRING MAN documented as of this encounter Visit Diagnoses Diagnosis Disorder of bursae and tendons in shoulder region Unspecified disorders of bursae and tendons in shoulder region Epigastric pain Abdominal pain, epigastric Diarrhea, unspecified type documented in this encounter
--- OUTSIDE RECORDS SUMMARY | 2024-06-09 08:02 | XMS_ITS | Encounter Summary ---
Author Organization [facility] Healthcare Address [address] [place] [address] Care Team Providers Care Edge Inker Uppers Name Role Phone Carmen Brown MD Primary Care Provider Encounter Details Date Type Department Care Team (Late st Contact Info) Description 11/02/2016 3:29 PM CDT - 11/02/2016 11:59 PM CDT Hospital Encounter [facility] Andrea Addison MD [address] [place] [address] [address] Discharge Disposition: Discharge to home or self care Social History Tobacco Use Types Packs/Day Years Used Date Smoking Tobacco: Never Assessed Comments Unknown Sex and Gender Information Value Date Recorded Sex Assigned at Not on file Legal Sex Female 3:43 AM PROFESSIONAL BUILDER Gender Identity Not on file Sexual Orientation [...] route every day 0 0 04/21/2016 02/25/2017 no.[id number] (SET UP 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-PNV-DHA) 28 mg iron- 1 mg-200 mg capsule [...] (Latest Contact Info) Description 07/25/2024 12:30 PM PROFESSIONAL BUILDER Hospital Encounter [address] [address] Yves Krishna MD [address] [place] [address] [address] [place] [address] 07/25/2024 12:30 PM PROFESSIONAL BUILDER - 07/25/2024 1:25 PM PROFESSIONAL BUILDER Surgery [address] [address] Yves Krishna MD [address] [facility] [address] [place] [address] ESOPHAGOGASTRODUODENOSCOPY Scheduled Procedures Name Priority Associated Diagnoses Date/Ti wv ESOPHAGOGASTRODUODENOSCOPY Epigastric pain Diarrhea, unspecified type 07/25/2024 12:30 PM PROFESSIONAL BUILDER COLONOSCOPY Epigastric pain Diarrhea, unspecified type 07/25/2024 12:30 PM PROFESSIONAL BUILDER documented as of this encounter Procedures Procedure Name Priority Date/Time Associated Diagnosis Comments DIFFERENTIAL AUTO Routine 11/02/2016 3:3 3 PM CDT GTT 50GM 1HR GESTATIONAL SCREEN Routine 11/02/2016 3:33 PM CDT HSV 1 AND 2 ANTIBODIES, IGG, IGM Routine 11/02/2016 3:33 PM CDT CBC WITH AUTO DIFFERENTIAL Routine 11/02/2016 3:33 PM CDT VITAMIN D 25 HYDROXY Routine 11/02/2016 3:33 PM CDT RPR Routine 11/02/2016 3:33 PM CDT documented in this encounter Results * HSV 1 and 2 antibodies IgG, IgM (11/02/2016 3:33 PM CDT) HSV 1 IgG Negative Negative [facility] HSV 2 IgG Negative Negative [facility] HSV 1/2 IgM Negative Negative [facility] Comment: ADDITIONAL INFORMATION This test has been modified from the viscosity inspector's instructions. Its performance characteristics were determined by [facility] in a manner consistent with CLIA requirements. This test has not been cleared or approved by the U.S. Food and Drug Administration. Test Performed by: [place] [address] Blood specimen (specimen) 11/02/2016 3:33 PM CDT 11/03/2016 7:15 AM CDT Andrea Addison MD LAB MICROBIOLOGY - GENERAL ORDERABLES Final Result Performing Organization Address [facility] Co de Phone Number [facility] [phone] [place] [address] * RPR, serum (11/02/2016 3:33 PM CDT) Pathologist [facility] RPR Non-Reactiv e Non-Reactiv e [facility] Blood specimen (specimen) 11/02/2016 3:33 PM CDT 11/02/2016 3:33 PM CDT Andrea Addison MD LAB MICROBIOLOGY - GENERAL ORDERABLES Final Result Performing Organization Address [facility]/ZIP Co de Phone Number [facility] [address] [address] [facility] [place] [address] * Vitamin D 25 hydroxy (11/02/2016 3:33 PM CDT) Vitamin D 25-OH 34 30 - 80 ng/mL [facility] Blood specimen (specimen) 11/02/2016 3:33 PM CDT 11/02/2016 3:33 PM CDT Andrea Addison MD LAB BLOOD ORDERABLES Final Result Performing Organization Address City/[facility]/ZIP Co de Phone Number [facility] [address] [place] [address] * Differential, auto (11/02/2016 3:33 PM CDT) Neutrophil pct 68.5 % [facility] Imm gran pct 0.9 % [facility] Lymphocyte pct 22.1 % [facility] Monocyte pct 7.3 % [facility] Eosinophil pct 0.1 % [facility] Basophil pct 0.2 % [facility] Neutrophil abs 5.56 1.70 - 6.50 K/cumm [facility] Imm gran abs 0.07 0.00 - 0.10 K/cumm [facility] Lymphocyte abs 1.79 0.80 - 3.30 K/cumm [facility] Monocyte abs 0.59 0.20 - 0.80 K/cumm [facility] Eosinophil abs 0.08 0.00 - 0.50 K/cumm [facility] Basophil abs 0.02 0.00 - 0.10 K/cumm [facility] Blood specimen (specimen) 11/02/2016 3:33 PM CDT 11/02/2016 3:33 PM CDT Andrea Addison MD LAB BLOOD ORDERABLES Final Result Performing Organization Address City/[facility]/ZIP Co de Phone Number [facility] [address] [facility] [place] [address] * (ABNORMAL) CBC with auto differential (11/02/2016 3:33 PM CDT) WBC 8.11 3.80 - 9.90 K/cumm [facility] RBC 3.55(L) 3.90 - 5.20 M/cumm [facility] Hgb 10.9(L) 11.9 - 15.5 g/dL [facility] Hct 33.3(L) 35.6 - 45.5 % [facility] MCV 93.8 81.3 - 96.4 fL [facility] MCH 30.7 27.1 - 33.3 pg [facility] MCHC 32.7 32.3 - 35.7 g/dL [facility] RDW CV 13.0 11.1 - 14.9 % [facility] RDW SD 44.9 35.7 - 48.1 fL [facility] Plt 210 150 - 400 K/cumm [facility] MPV 9.4 9.1 - 12.3 fL [facility] NRBC 0.0 0.0 - 0.2 % [facility] NRBC abs 0.00 0.00 - 0.01 K/cumm [facility] Blood specimen (specimen) 11/02/2016 3:33 PM CDT 11/02/2016 3:33 PM CDT Andrea Addison MD LAB BLOOD ORDERABLES Final Result [facility] [address] [place] [address] * GTT, gestational diabetes 50gm screen (11/02/2016 3:33 PM CDT) GTT 50g gest screen 100 70 - 140 mg/dL [facility] Blood specimen (specimen) 11/02/2016 3:33 PM CDT 11/02/2016 3:34 PM CDT Andrea Addison MD LAB BLOOD ORDERABLES Final Result Performing Organization Address City/[facility]/ZIP Co de Phone Number [facility] [address] [facility] [address] [place], [place] [id number] documented in this encounter Visit Diagnoses Not on filedocumented in this encounter Care Teams Edge Inker Uppers Relationship Specialty Start Date End Date Carmen Brown MD PCP - General Family Practice 11/02/16 06/02/22 documented as of this encounter
--- OUTSIDE RECORDS SUMMARY | 2024-06-09 08:02 | XMS_ITS | Encounter Summary ---
Author Organization [facility] Healthcare Address [address] [place] [address] Care Team Providers Care Physical Science Technician Name Role Phone Unavailable Primary Care Provider Unavailabl e Encounter Details Date Type Department Care Team (Late st Contact Info) Description 10/24/2009 10:35 PM CDT - 10/25/2009 3:05 AM CDT Hospital Encounter [facility] JULESCONInocencio Giordano MD [address] [place] [address] Parich, Tanin Abdominal pain, left lower quadrant Social History Tobacco Use Types Packs/Day Years Used Date Smoking Tobacco: Never Assessed Comments Unknown Sex and Gender Information Value Date Recorded Sex Assigned at Not on file Legal Sex Female 3:43 AM TRAPPER ANIMAL Gender Identity Not on file Sexual Orientation Not on file documented as of this encounter Plan of Treatment Upcoming Encounters Date Type Department Care Team (Latest Contact Info) Description 07/25/2024 12:30 PM TRAPPER ANIMAL Hospital Encounter [address] [address] Yves Krishna MD [address] [place] [address] 07/25/2024 12:30 PM TRAPPER ANIMAL - 07/25/2024 1:25 PM TRAPPER ANIMAL Surgery [address] [address]Yves Franklin MD [address] [place] [address] ESOPHAGOGASTRODUODENOSCOPY Scheduled Procedures Name Priority Associated Diagnoses Date/Ti me ESOPHAGOGASTRODUODENOSCOPY Epigastric pain Diarrhea, unspecified type 07/25/2024 12:30 PM TRAPPER ANIMAL COLONOSCOPY Epigastric pain Diarrhea, unspecified type 07/25/2024 12:30 PM TRAPPER ANIMAL documented as of this encounter Visit Diagnoses Diagnosis Abdominal pain, left lower quadrant Epigastric pain Abdominal pain, epigastric Diarrhea, unspecified type documented in this encounter
--- OUTSIDE RECORDS SUMMARY | 2024-06-09 08:02 | XMS_ITS | Encounter Summary ---
Author Organization [facility] Healthcare Address [address] [place] [address] Care Team Providers Care Soft Shoe Dancer Name Role Phone Unavailable Primary Care Provider Unavailabl e Encounter Details Date Type Department Care Team (Late st Contact Info) Description 06/04/2016 2:46 PM GLAZE SUPERVISOR - 06/04/2016 3:55 PM GLAZE SUPERVISOR Hospital Encounter [facility] Neelam Smith MD [address] [place] [address] Other viral diseases complicating , first trimester; Viral infection; Less than 8 weeks gestation of Social History Tobacco Use Types Packs/Day Years Used Date Smoking Tobacco: Never Assessed Comments Unknown Sex and Gender Information Value Date Recorded Sex Assigned at Not on file Legal Sex Female 3:43 AM GLAZE SUPERVISOR Gender Identity Not on file Sexual Orientation [...] (Latest Contact Info) Description 07/25/2024 12:30 PM GLAZE SUPERVISOR Hospital Encounter [facility] [address] [place] [address] Yves Krishna MD [address] [facility] [address] [place] [address] 07/25/2024 12:30 PM GLAZE SUPERVISOR - 07/25/2024 1:25 PM GLAZE SUPERVISOR Surgery [facility] [address] [place] [address] Yves Krishna MD [address] [facility] [address] [place] [address] ESOPHAGOGASTRODUODENOSCOPY Scheduled Procedures Name Priority Associated Diagnoses Date/Ti me ESOPHAGOGASTRODUODENOSCOPY Epigastric pain Diarrhea, unspecified type 07/25/2024 12:30 PM GLAZE SUPERVISOR COLONOSCOPY Epigastric pain Diarrhea, unspecified type 07/25/2024 12:30 PM GLAZE SUPERVISOR documented as of this encounter Procedures Procedure Name Priority Date/Time Associated Diagnosis Comments NASOPHARYNGEAL MUCUS INFLUENZA A, B AG Routine 06/04/2016 3:35 PM GLAZE SUPERVISOR DISCHARGE LABORATORY CUMULATIVE REPORT 06/04/2016 documented in this encounter Results * Nasopharyngeal mucus Influenza A, B ag (06/04/2016 3:35 PM GLAZE SUPERVISOR) Influ A ag, nasopharyngeal Negative Negative CDR HISTORICAL RESULTS Comment: Interpretive Data The results of this procedure whether positive or negative are presumptive. Current interpretive data was last revised on 2014. Influ B ag, nasopharyngeal Negative Negative CDR HISTORICAL RESULTS Nasopharynx swab 06/04/2016 3:35 PM GLAZE SUPERVISOR us Historical Provider LAB BLOOD ORDERABLES Vi lovely Result CDR HISTORICAL RESULTS * DISCHARGE LABORATORY CUMULATIVE REPORT (06/04/2016) Narrative 06/04/2016 Ordered by an unspecified provider. us Historical Provider LAB BLOOD ORDERABLES Vi murry Result documented in this encounter Visit Diagnoses Diagnosis Other viral diseases complicating , first trimester Viral infection Less than 8 weeks gestation of Epigastric pain Abdominal pain, epigastric Diarrhea, unspecified type documented in this encounter
--- OUTSIDE RECORDS SUMMARY | 2024-06-09 08:02 | XMS_ITS | Encounter Summary ---
Author Organization [facility] Address [address] [facility] [address] [place] [address] Care Team Providers Care Soft Sugar Cutter Name Role Phone Carmen Brown MD Primary Care Provider Reason for Visit * Reason Comments Routine Visit f/u from L & D, c ontracting Encounter Details Date Type Department Care Team (Late st Contact Info) Description 11/30/2016 2:15 PM CDT Routine [facility] [address] [facility] [address] [place] [phone] Andrea Addison MD [address] [place] [address] [address] [place] [address] Encounter for supervision of other normal in third trimester (Primary Dx); 33 weeks gestation of ; History of labor Social History Tobacco Use Types Packs/Day Years Used Date Smoking Tobacco: Never Comments Yes Sex and Gender Information Value Date Recorded Sex Assigned at Not on file Legal Sex Female 3:43 AM VP AD PRODUCTS AND PLANNING Gender Identity Not on file Sexual Orientation Not on file documented as of this encounter Last Filed Vital Signs Vital Sign Reading Time Taken Comments Blood Pressure 122/74 11/30/2016 2:24 PM CDT Pulse - - Temperature - - Respiratory Rate - - Oxygen Saturation - - Inhaled Oxygen Concentration - - Weight 78.9 kg (174 lb) 11/30/2016 2:24 PM CDT Height - - Body Mass Index 30.82 04/21/2016 8:52 AM VP AD PRODUCTS AND PLANNING documented in this encounter Progress Notes * Andrea Addison MD - 11/30/2016 2:15 PM CDT Patient seen in L&D 4 days ago for cntxs. She was closed. Patient has [facility] cntxs. PTL instructions. EFW: 4.5 # Decrease activity x 3 weeks. documented in this encounter Plan of Treatment Upcoming Encounters Date Type Department Care Team (Latest Contact Info) Description 07/25/2024 12:30 PM VP AD PRODUCTS AND PLANNING Hospital Encounter [address] [address] Yves Krishna MD [address] [place] [address] [address] [place] [address] 07/25/2024 12:30 PM VP AD PRODUCTS AND PLANNING - 07/25/2024 1:25 PM VP AD PRODUCTS AND PLANNING Surgery [address] [address] Yves Krishna MD [address] [place] [address] [address] [place] [address] ESOPHAGOGASTRODUODENOSCOPY Scheduled Procedures Name Priority Associated Diagnoses Date/Ti me ESOPHAGOGASTRODUODENOSCOPY Epigastric pain Diarrhea, unspecified type 07/25/2024 12:30 PM VP AD PRODUCTS AND PLANNING COLONOSCOPY Epigastric pain Diarrhea, unspecified type 07/25/2024 12:30 PM VP AD PRODUCTS AND PLANNING documented as of this encounter Procedures Procedure Name Priority Date/Time Associated Diagnosis Comments POCT URINALYSIS DIPSTICK Routine 11/30/2016 2:31 PM CDT 33 weeks gestation of Encounter for supervision of other normal in third trimester ABO/RH Routine 06/16/2016 RUBELLA IGG Routine 06/16/2016 HIV-1 AND HIV-2 ANTIBODIES Routine 06/16/2016 HEPATITIS B SURFACE ANTIGEN Routine 06/16/2016 CHLAMYDIA TRACHOMATIS CULTURE Routine 06/16/2016 N. GONORRHOEAE CULTURE Routine 06/16/2016 CYTOLOGY Routine 04/21/2016 documented in this encounter Results * POCT urinalysis dipstick (11/30/2016 2:31 PM CDT) Glucose, ur, POC Negative mmol/L Protein, ur, POC 1+ mg/dL Lot Number [id number] Urine 11/30/2016 2:31 PM CDT us Andrea Addison MD POINT OF CARE TEST ORDERAB LES Final Result * Rubella antibody, IgG (06/16/2016) SCRIBED Rubella IGG Positive Blood specimen (specimen) us Andrea Addison MD LAB MICROBIOLOGY - GENERAL ORDERABLES Final Result * HIV-1 and HIV-2 antibodies (06/16/2016) SCRIBED HIV Negative Blood specimen (specimen) Result Maximiliano Addison MD LAB BLOOD ORDERABLES Final Result * Hepatitis B surface antigen (06/16/2016) SCRIBED HBsAg Negative Blood specimen (specimen) Result Maximiliano Addison MD LAB MICROBIOLOGY - GENERAL ORDERABLES Final Result * ABO/Rh (06/16/2016) SCRIBED ABO/Rh B- Blood specimen (specimen) Result Maximiliano Addison MD LAB BLOOD BANK TEST ORDERA BLES Final Result * Chlamydia trachomatis culture (06/16/2016) SCRIBED Chlamydia culture Negative us Andrea Addison MD LAB MICROBIOLOGY - GENERAL ORDERABLES Final Result * N. gonorrhoeae culture (06/16/2016) SCRIBED Gonorrhea culture Negative Andrea Addison MD LAB MICROBIOLOGY - GENERAL ORDERABLES Final Result * Cytology (04/21/2016) SCRIBED Pap test Abnormal Comment:ASCUS, positive HPV Fluid Andrea Addison MD LAB CYTOLOGY ORDERABLES Fi nal Result documented in this encounter Visit Diagnoses Diagnosis Encounter for supervision of other normal in third trimester- Primary 33 weeks gestation of History of labor Epigastric pain Abdominal pain, epigastric Diarrhea, unspecified type documented in this encounter Care Teams Soft Sugar Cutter Relationship Specialty Start Date End Date Carmen Brown MD PCP - General Family Practice 11/02/16 06/02/22 documented as of this encounter
--- OUTSIDE RECORDS SUMMARY | 2024-06-09 08:02 | XMS_ITS | Encounter Summary ---
Author Organization [facility] Address [address] [place] [address] Care Team Providers Care Engineering Scientist Name Role Phone Unavailable Primary Care Provider Unavailabl e Encounter Details Date Type Department Care Team (Late st Contact Info) Description 08/29/2016 Orders Only [facility] [address] [facility] [address] [place] [phone] Andrea Addison MD [address] [facility] [address] [place] [address] Social History Tobacco Use Types Packs/Day Years Used Date Smoking Tobacco: Never Assessed Comments Unknown Sex and Gender Information Value Date Recorded Sex Assigned at Not on file Legal Sex Female 3:43 AM MEDICAL TRANSCRIPTIONIST Gender Identity Not on file Sexual Orientation Not on file documented as of this encounter Plan of Treatment Upcoming Encounters Date Type Department Care Team (Latest Contact Info) Description 07/25/2024 12:30 PM MEDICAL TRANSCRIPTIONIST Hospital Encounter [address] [address]Yves Franklin MD [address] [facility] [address] [place] [address] 07/25/2024 12:30 PM MEDICAL TRANSCRIPTIONIST - 07/25/2024 1:25 PM MEDICAL TRANSCRIPTIONIST Surgery [address] [address]Yves Franklin MD [address] [facility] [address] [place] [address] ESOPHAGOGASTRODUODENOSCOPY Scheduled Procedures Name Priority Associated Diagnoses Date/Ti me ESOPHAGOGASTRODUODENOSCOPY Epigastric pain Diarrhea, unspecified type 07/25/2024 12:30 PM MEDICAL TRANSCRIPTIONIST COLONOSCOPY Epigastric pain Diarrhea, unspecified type 07/25/2024 12:30 PM MEDICAL TRANSCRIPTIONIST documented as of this encounter Procedures Procedure Name Priority Date/Time Associated Diagnosis Comments URINALYSIS AND REFLEX TO MICROSCOPIC AND CULTURE STAT 08/29/2016 5:05 PM CDT documented in this encounter Results * Urinalysis reflex to microscopic and culture (08/29/2016 5:05 PM CDT) Color, ur Yellow Yellow [facility] ([facility]) Clarity, ur Clear Clear [facility] ([facility]) Specific gravity, ur 1.015 1.003 - 1.030 [facility] ([facility]) Comment:Normal Ranges: 1.003 -1.030 pH, ur 7.0 4.5 - 8.0 [facility] ([facility]) Comment:Normal ranges: 4.5-8 .0 Protein, ur ql Negative Negative mg/dL [facility] ([facility]) Glucose, ur ql Negative Negative mg/dL [facility] ([facility]) Ketones, ur Negative Negative [facility] ([facility]) Bilirubin, ur Negative Negative [facility] ([facility]) Blood, ur Negative Negative [facility] ([facility]) Urobilinogen, ur 1.0 0.2 - 1.0 EhrUnit/dL [facility] ([facility]) Comment:Normal Ranges: 0.2-1 .0 EU/dL Nitrites, ur Negative Negative [facility] ([facility]) Leukocyte esterase, ur Negative Negative [facility] ([facility]) Urine/Blood 08/29/2016 5:05 PM CDT 08/29/2016 5:15 PM CDT Narrative [facility] ([facility]) - 08/29/2016 5:20 PM CDT CLEAN VOID us Andrea Addison MD LAB MICROBIOLOGY - GENERAL ORDERABLES Final Result [facility] ([facility]) [address] [facility] Department [place] [address] documented in this encounter Visit Diagnoses Not on filedocumented in this encounter
--- OUTSIDE RECORDS SUMMARY | 2024-06-09 08:02 | XMS_ITS | Encounter Summary ---
Author Organization [facility] Healthcare Address [address] [place] [address] Care Team Providers Care Angiographer Name Role Phone Unavailable Primary Care Provider Unavailabl e Encounter Details Date Type Department Care Team (Late st Contact Info) Description 05/09/2016 3:27 PM SLOPE RUNNER - 05/09/2016 4:03 PM SLOPE RUNNER Hospital Encounter [facility] Neelam Smith MD [address] [place] [id number] Acute suppurative otitis media of left ear without spontaneous rupture of tympanic membrane Social History Tobacco Use Types Packs/Day Years Used Date Smoking Tobacco: Never Assessed Comments Unknown Sex and Gender Information Value Date Recorded Sex Assigned at Not on file Legal Sex Female 3:43 AM SLOPE RUNNER Gender Identity Not on file Sexual Orientation [...] (Latest Contact Info) Description 07/25/2024 12:30 PM SLOPE RUNNER Hospital Encounter [facility] [place] [address] Yves Krishna MD [address] [facility] [place] [address] 07/25/2024 12:30 PM SLOPE RUNNER - 07/25/2024 1:25 PM SLOPE RUNNER Surgery [address] [address] Yves Krishna MD [address] [facility] [place] [address] ESOPHAGOGASTRODUODENOSCOPY Scheduled Procedures Name Priority Associated Diagnoses Date/Ti me ESOPHAGOGASTRODUODENOSCOPY Epigastric pain Diarrhea, unspecified type 07/25/2024 12:30 PM SLOPE RUNNER COLONOSCOPY Epigastric pain Diarrhea, unspecified type 07/25/2024 12:30 PM SLOPE RUNNER documented as of this encounter Visit Diagnoses Diagnosis Acute suppurative otitis media of left ear without spontaneous rupture of tympanic membrane Epigastric pain Abdominal pain, epigastric Diarrhea, unspecified type documented in this encounter
--- OUTSIDE RECORDS SUMMARY | 2024-06-09 08:02 | XMS_ITS | Encounter Summary ---
Author Organization [facility] Healthcare Address [address] [place] [address] Care Team Providers Care Program Trainer Name Role Phone Unavailable Primary Care Provider Unavailabl e Encounter Details Date Type Department Care Team (Late st Contact Info) Description 06/16/2016 11:13 AM NUCLEAR CONTROL OPERATOR - 06/16/2016 11:59 PM NUCLEAR CONTROL OPERATOR Hospital Encounter [facility] Andrea Calderon MD [address] [place] [address] [address] Encounter for supervision of other normal , first trimester Social History Tobacco Use Types Packs/Day Years Used Date Smoking Tobacco: Never Assessed Comments Unknown Sex and Gender Information Value Date Recorded Sex Assigned at Not on file Legal Sex Female 3:43 AM NUCLEAR CONTROL OPERATOR Gender Identity Not on file Sexual [...] (Latest Contact Info) Description 07/25/2024 12:30 PM NUCLEAR CONTROL OPERATOR Hospital Encounter [facility] [address] [place] [address] Yves Krishna MD 4 [facility] [address] [place] [address] 07/25/2024 12:30 PM NUCLEAR CONTROL OPERATOR - 07/25/2024 1:25 PM NUCLEAR CONTROL OPERATOR Surgery [address] [address] Yves Krishna MD 4 [facility] [address] [place] [address] ESOPHAGOGASTRODUODENOSCOPY Scheduled Procedures Name Priority Associated Diagnoses Date/Ti me ESOPHAGOGASTRODUODENOSCOPY Epigastric pain Diarrhea, unspecified type 07/25/2024 12:30 PM NUCLEAR CONTROL OPERATOR COLONOSCOPY Epigastric pain Diarrhea, unspecified type 07/25/2024 12:30 PM NUCLEAR CONTROL OPERATOR documented as of this encounter Procedures Procedure Name Priority Date/Time Associated Diagnosis Comments URINE (AEROBIC) CULTURE, CDR Routine 06/16/2016 11:15 AM NUCLEAR CONTROL OPERATOR SERUM RUBELLA AB, IGG Routine 06/16/2016 11:15 AM NUCLEAR CONTROL OPERATOR SERUM RAPID PLASMA REAGIN (RPR) Routine 06/16/2016 11:15 AM NUCLEAR CONTROL OPERATOR SERUM HUMAN IMMUNODEFICIENCY VIRUS (HIV) 1/2 AB + P24 AG Routine 06/16/2016 11:15 AM NUCLEAR CONTROL OPERATOR SERUM HEPATITIS C AB Routine 06/16/2016 11:15 AM NUCLEAR CONTROL OPERATOR SERUM HEPATITIS B SURFACE AG Routine 06/16/2016 11:15 AM NUCLEAR CONTROL OPERATOR SERUM 25-HYDROXYCHOLECALCIFERO L (VITAMIN D) Routine 06/16/2016 11:15 AM NUCLEAR CONTROL OPERATOR BLOOD CELL COUNT (CBC) Routine 7 11:15 AM NUCLEAR CONTROL OPERATOR BLOOD ABO, RH, INDIRECT AB SCREEN Routine 06/16/2016 11:15 AM NUCLEAR CONTROL OPERATOR BLOOD CELL MORPHOLOGIC EXAM Routine 06/16/2016 11:15 AM NUCLEAR CONTROL OPERATOR URINE DRUG SCREEN Routine 06/16/2016 5:1 5 AM NUCLEAR CONTROL OPERATOR URINALYSIS Routine 06/16/2016 5:15 AM NUCLEAR CONTROL OPERATOR DISCHARGE LABORATORY CUMULATIVE REPORT 06/16/2016 documented in this encounter Results * Serum Rubella ab, IgG (06/16/2016 11:15 AM NUCLEAR CONTROL OPERATOR) Rubella ab, IgG Immune Immune CDR HISTORICAL RESULTS Serum 06/16/2016 11:1 5 AM NUCLEAR CONTROL OPERATOR Andrea Addison MD LAB BLOOD ORDERABLES Final Result Performing Organization Address [facility] de Phone Number CDR HISTORICAL RESULTS * Serum rapid plasma reagin (RPR) (06/16/2016 11:15 AM NUCLEAR CONTROL OPERATOR) RPR Non-Reacti ve Non-Reacti ve CDR HISTORICAL RESULTS Serum 06/16/2016 11:1 5 AM NUCLEAR CONTROL OPERATOR Andrea Addison MD LAB BLOOD ORDERABLES Final Result Performing Organization Address [facility] de Phone Number CDR HISTORICAL RESULTS * (ABNORMAL) Serum 25-hydroxycholecalciferol (vitamin D) (06/16/2016 11:15 AM NUCLEAR CONTROL OPERATOR) 25-OH Vit D 26(L) 30 - 80 ng/ml CDR HISTORICAL RESULTS Serum 06/16/2016 11:1 5 AM NUCLEAR CONTROL OPERATOR us Andrea Addison MD LAB BLOOD ORDERABLES Final Result Performing Organization Address [facility] de Phone Number CDR HISTORICAL RESULTS * Serum Hepatitis B surface ag (06/16/2016 11:15 AM NUCLEAR CONTROL OPERATOR) HBV surface ag Negative Negative CDR H ISTORICAL RESULTS Serum 06/16/2016 11:1 5 AM NUCLEAR CONTROL OPERATOR Andrea Addison MD LAB BLOOD ORDERABLES Final Result Performing Organization Address [facility] Co de Phone Number CDR HISTORICAL RESULTS * Serum Hepatitis C ab (06/16/2016 11:15 AM NUCLEAR CONTROL OPERATOR) HCV ab Negative Negative CDR HISTOR ICAL RESULTS Serum 06/16/2016 11:1 5 AM NUCLEAR CONTROL OPERATOR Andrea Addison MD LAB BLOOD ORDERABLES Final Result Performing Organization Address [facility] de Phone Number CDR HISTORICAL RESULTS * Serum Human Immunodeficiency virus (HIV) 1/2 ab + p24 ag (06/16/2016 11:15 AM NUCLEAR CONTROL OPERATOR) Pathologist [facility] HIV 1/2 ab p24 ag Nonreactive CDR HISTORICAL RESULTS Serum 06/16/2016 11:1 5 AM NUCLEAR CONTROL OPERATOR Andrea Addison MD LAB BLOOD ORDERABLES Final Result Performing Organization Address [facility] de Phone Number CDR HISTORICAL RESULTS * Blood cell count (CBC) (06/16/2016 11:15 AM NUCLEAR CONTROL OPERATOR) Pathologist [facility] WBC 8.4 3.8 - 9.9 K/cumm CDR HISTORICAL RESULTS RBC 4.22 3.90 - 5.20 M/cumm CDR HISTORICAL RESULTS Hgb 13.1 11.9 - 15.5 g/dl CDR HISTORICAL RESULTS Hct 39.9 35.6 - 45.5 % CDR HISTORICAL RESULTS MCV 94.5 81.3 - 96.4 fl CDR HISTORICAL RESULTS MCH 31.0 27.1 - 33.3 pg CDR HISTORICAL RESULTS MCHC 32.8 32.3 - 35.7 g/dl CDR HISTORICAL RESULTS Rdw 11.8 11.1 - 14.9 % CDR HISTORICAL RESULTS RDW 40.6 35.7 - 48.1 fl CDR HISTORICAL RESULTS Platelets 243 150 - 400 K/cumm CDR HISTORICAL RESULTS MPV 10.3 9.1 - 12.3 fl CDR HISTORICAL RESULTS NRBC 0.0 0.0 - 0.2 % CDR HIST ORICAL RESULTS NRBC, abs 0.00 0.00 - 0.01 K/cumm CDR HISTORICAL RESULTS Blood specimen (specimen) 06/16/2016 11:15 AM NUCLEAR CONTROL OPERATOR Andrea Addison MD LAB BLOOD ORDERABLES Final Result Performing Organization Address [facility] de Phone Number CDR HISTORICAL RESULTS * Blood ABO, Rh, indirect ab screen (06/16/2016 11:15 AM NUCLEAR CONTROL OPERATOR) ABO, Rho(D) B Negative CDR HIS TORICAL RESULTS Cookie, indirect Negative CDR HISTORICAL RESULTS Blood specimen (specimen) 06/16/2016 11:15 AM NUCLEAR CONTROL OPERATOR Andrea Addison MD LAB BLOOD ORDERABLES Final Result Performing Organization Address [facility] de Phone Number CDR HISTORICAL RESULTS * Blood cell morphologic exam (06/16/2016 11:15 AM NUCLEAR CONTROL OPERATOR) Neutrophils 75.5 % CDR HIST ORICAL RESULTS Immature granulocytes 0.2 % CDR HISTORICAL RESULTS Lymphocytes 18.5 % CDR HIST ORICAL RESULTS Monos 5.0 % CDR HISTOR ICAL RESULTS Eosinophils 0.0 % CDR HIST ORICAL RESULTS Basophils 0.2 % CDR HISTOR ICAL RESULTS Neutrophils, abs 6.4 1.7 - 6.5 K/cumm CDR HISTORICAL RESULTS Immature granulocyte, abs 0.0 0.0 - 0.1 K/cumm CDR HISTORICAL RESULTS Lymphocytes, abs 1.6 0.8 - 3.3 K/cumm CDR HISTORICAL RESULTS Monocytes, absolute 0.4 0.2 - 0.8 K/cumm CDR HISTORICAL RESULTS Eosinophils, abs 0.0 0.0 - 0.5 K/cumm CDR HISTORICAL RESULTS Basophils, abs 0.0 0.0 - 0.1 K/cumm CDR HISTORICAL RESULTS Blood specimen (specimen) 06/16/2016 11:15 AM NUCLEAR CONTROL OPERATOR Andrea Addison MD LAB BLOOD ORDERABLES Final Result Performing Organization Address [facility] de Phone Number CDR HISTORICAL RESULTS * Urine (aerobic) culture (06/16/2016 11:15 AM NUCLEAR CONTROL OPERATOR) Urine (Unknown) 06/16/2016 1 1:15 AM NUCLEAR CONTROL OPERATOR 06/16/2016 8:09 PM NUCLEAR CONTROL OPERATOR Impressions CDR HISTORICAL RESULTS - 06/18/2016 7:57 AM NUCLEAR CONTROL OPERATOR Testing performed by: [facility], [address] [place]., [address] Narrative CDR HISTORICAL RESULTS - 06/18/2016 7:57 AM NUCLEAR CONTROL OPERATOR Insignificant growth based on current clinical standards. Historical Provider LAB MICROBIOLOGY - GENERA L ORDERABLES Final Result Performing Organization Address [facility] de Phone Number CDR HISTORICAL RESULTS * (ABNORMAL) Urinalysis (06/16/2016 5:15 AM NUCLEAR CONTROL OPERATOR) Mucus Present CDR HISTOR ICAL RESULTS Color, ur Straw CDR HISTOR ICAL RESULTS Clarity, ur Clear CDR HIST ORICAL RESULTS Specific gravity, ur 1.008 1.001 - 1.033 CDR HISTORICAL RESULTS pH, ur 8.0 5.0 - 8.0 CDR HISTOR ICAL RESULTS Protein, ur Negative Negative CDR HIST ORICAL RESULTS Glucose, ur Negative Negative CDR HIST ORICAL RESULTS Ketones, ur Negative Negative CDR HIST ORICAL RESULTS Bilirubin, ur Negative Negative CDR HI STORICAL RESULTS U Blood Negative Negative CDR HISTOR ICAL RESULTS Urobilinogen, quant, ur Normal CDR HISTORICAL RESULTS Nitrites, ur Negative Negative CDR HIS TORICAL RESULTS Leukocyte esterase, ur 2+(A) Negative CDR HISTORICAL RESULTS RBC, ur 0 0 - 3 /hpf CDR HISTO RICAL RESULTS WBC, ur 1 /HPF 0 - 5 /hpf CDR HISTO RICAL RESULTS Bacteria, ur Trace CDR HIS TORICAL RESULTS Epithelial cells, renal, ur 0 0 - 0 /hpf CDR HISTORICAL RESULTS Epithelial cells, squamous, ur 3 /HPF /lpf CDR HISTORICAL RESULTS Urine 06/16/2016 5:15 AM NUCLEAR CONTROL OPERATOR Narrative CDR HISTORICAL RESULTS - 06/16/2016 10:54 AM NUCLEAR CONTROL OPERATOR Comment Deleted Andrea Addison MD LAB BLOOD ORDERABLES Final Result CDR HISTORICAL RESULTS * Urine drug screen (06/16/2016 5:15 AM NUCLEAR CONTROL OPERATOR) Amphetamine, ur Negative [id number] ng/ml CDR HISTORICAL RESULTS Barbiturates, ur Negative cutoff 200ng/ml CDR HISTORICAL RESULTS Benzodiazepines , ur Negative cutoff 200ng/ml CDR HISTORICAL RESULTS Cocaine metabolites Negative cutoff 300ng/ml CDR HISTORICAL RESULTS Methadone, ur Negative cutoff 300ng/ml CDR HISTORICAL RESULTS Opiates, qual, ur Negative [id number] ng/ml CDR HISTORICAL RESULTS Comment:This assay is optimi zed to detect morphine and codeine. It has low sensitivity for synthetic opiates. Phencyclidine, qual, ur Negative cutoff 25 ng/ml CDR HISTORICAL RESULTS Propoxyphene, ur Negative cutoff 300ng/ml CDR HISTORICAL RESULTS Cannabinoids, ur Negative cutoff 50 ng/ml CDR HISTORICAL RESULTS Concentration, ur Average CDR HISTORICAL RESULTS Urine 06/16/2016 5:15 AM NUCLEAR CONTROL OPERATOR Narrative CDR HISTORICAL RESULTS - 06/16/2016 11:33 AM NUCLEAR CONTROL OPERATOR This drug screen is for medical purposes only. It is not intended to be used for legal, employment or forensic purposes. Andrea Addison MD LAB BLOOD ORDERABLES Final Result CDR HISTORICAL RESULTS * DISCHARGE LABORATORY CUMULATIVE REPORT (06/16/2016) Narrative 06/16/2016 Ordered by an unspecified provider. Sam Barker MD LAB BLOOD ORDERABLES Vi l Result documented in this encounter Visit Diagnoses Diagnosis Encounter for supervision of other normal , first trimester Epigastric pain Abdominal pain, epigastric Diarrhea, unspecified type documented in this encounter
--- OUTSIDE RECORDS SUMMARY | 2024-06-09 08:02 | XMS_ITS | Encounter Summary ---
Author Organization [facility] Healthcare Address [address] [place] [address] Care Team Providers Care Channel Director Name Role Phone Unavailable Primary Care Provider Unavailabl e Encounter Details Date Type Department Care Team (Late st Contact Info) Description 10/24/2009 9:58 AM CDT - 10/24/2009 11:59 PM CDT Hospital Encounter [facility] Social History Tobacco Use Types Packs/Day Years Used Date Smoking Tobacco: Never Assessed Comments Unknown Sex and Gender Information Value Date Recorded Sex Assigned at Not on file Legal Sex Female 3:43 AM MARRIAGE AND FAMILY SOCIAL WORKER Gender Identity Not on file Sexual Orientation Not on file documented as of this encounter Plan of Treatment Upcoming Encounters Date Type Department Care Team (Latest Contact Info) Description 07/25/2024 12:30 PM MARRIAGE AND FAMILY SOCIAL WORKER Hospital Encounter [address] [address] Yves Krishna MD [address] [facility] [place] [address] 07/25/2024 12:30 PM MARRIAGE AND FAMILY SOCIAL WORKER - 07/25/2024 1:25 PM MARRIAGE AND FAMILY SOCIAL WORKER Surgery [address] [address]Yves Franklin MD [address] [facility] [place] [address] ESOPHAGOGASTRODUODENOSCOPY Scheduled Procedures Name Priority Associated Diagnoses Date/Ti nv ESOPHAGOGASTRODUODENOSCOPY Epigastric pain Diarrhea, unspecified type 07/25/2024 12:30 PM MARRIAGE AND FAMILY SOCIAL WORKER COLONOSCOPY Epigastric pain Diarrhea, unspecified type 07/25/2024 12:30 PM MARRIAGE AND FAMILY SOCIAL WORKER documented as of this encounter Visit Diagnoses Not on filedocumented in this encounter
--- OUTSIDE RECORDS SUMMARY | 2024-06-09 08:02 | XMS_ITS | Encounter Summary ---
Author Organization [facility] Healthcare Address [address] [place] [address] Care Team Providers Care Executive Admin Name Role Phone Unavailable Primary Care Provider Unavailabl e Encounter Details Date Type Department Care Team (Late st Contact Info) Description 05/19/2015 5:36 PM BACK JOINER - 05/19/2015 7:06 PM BACK JOINER Hospital Encounter [facility] Porfirio Clemens MD [address] [facility] [place] [id number] Periapical abscess without sinus; Chronic gingivitis, plaque induced; Dental caries; Cigarette nicotine dependence, uncomplicated Social History Tobacco Use Types Packs/Day Years Used Date Smoking Tobacco: Never Assessed Comments Unknown Sex and Gender Information Value Date Recorded Sex Assigned at Not on file Legal Sex Female 3:43 AM BACK JOINER Gender Identity Not on file Sexual Orientation [...] (Latest Contact Info) Description 07/25/2024 12:30 PM BACK JOINER Hospital Encounter [facility] [address] [place] [address] Yves Krishna MD [address] [facility] [place] [id number] 07/25/2024 12:30 PM BACK JOINER - 07/25/2024 1:25 PM BACK JOINER Surgery [facility] [address] [place] [address] Yves Krishna MD [address] [place] [address] [address] [place] [address] ESOPHAGOGASTRODUODENOSCOPY Scheduled Procedures Name Priority Associated Diagnoses Date/Ti me ESOPHAGOGASTRODUODENOSCOPY Epigastric pain Diarrhea, unspecified type 07/25/2024 12:30 PM BACK JOINER COLONOSCOPY Epigastric pain Diarrhea, unspecified type 07/25/2024 12:30 PM BACK JOINER documented as of this encounter Visit Diagnoses Diagnosis Periapical abscess without sinus Chronic gingivitis, plaque induced Dental caries Unspecified dental caries Cigarette nicotine dependence, uncomplicated Epigastric pain Abdominal pain, epigastric Diarrhea, unspecified type documented in this encounter
--- OUTSIDE RECORDS SUMMARY | 2024-06-09 08:02 | XMS_ITS | Encounter Summary ---
Author Organization [facility] Healthcare Address [address] [place] [address] Care Team Providers Care Shoe Sticks Repairer Name Role Phone Unavailable Primary Care Provider Unavailabl e Encounter Details Date Type Department Care Team (Late st Contact Info) Description 03/30/2013 6:49 PM CDT - 03/30/2013 11:59 PM CDT Hospital Encounter [facility] Steve Walsh MD [address] [address] Pain in joint, shoulder region; Memory loss; Headache; Chronic ethmoidal sinusitis; Disorder of bursae and tendons in shoulder region Social History Tobacco Use Types Packs/Day Years Used Date Smoking Tobacco: Never Assessed Comments Unknown Sex and Gender Information Value Date Recorded Sex Assigned at Not on file Legal Sex Female 3:43 AM HOT BOX CHECKER Gender Identity Not on file Sexual Orientation Not on file documented as of this encounter Plan of Treatment Upcoming Encounters Date Type Department Care Team (Latest Contact Info) Description 07/25/2024 12:30 PM HOT BOX CHECKER Hospital Encounter [address] [address] Yves Krishna MD [address] [facility] [address] [place] [address] 07/25/2024 12:30 PM HOT BOX CHECKER - 07/25/2024 1:25 PM HOT BOX CHECKER Surgery [address] [address] Yves Krishna MD [address] [facility] [place] [address] ESOPHAGOGASTRODUODENOSCOPY Scheduled Procedures Name Priority Associated Diagnoses Date/Ti me ESOPHAGOGASTRODUODENOSCOPY Epigastric pain Diarrhea, unspecified type 07/25/2024 12:30 PM HOT BOX CHECKER COLONOSCOPY Epigastric pain Diarrhea, unspecified type 07/25/2024 12:30 PM HOT BOX CHECKER documented as of this encounter Procedures Procedure Name Priority Date/Time Associated Diagnosis Comments BRAIN, PITUITARY MAGNETIC RESONANCE (MR) IMAGING WITHOUT THEN WITH CONTRAST Routine 03/30/2013 7:49 PM CDT MRI UPPER EXTREMITY JOINT W CONTRAST Routine 03/30/2013 7:29 PM CDT documented in this encounter Results * BRAIN, PITUITARY MAGNETIC RESONANCE (MR) IMAGING WITHOUT THEN WITH CONTRAST (03/30/2013 7:49 PM CDT) Anatomical Region Laterality Modality N/A Magnetic Resonan ce 03/30/2013 7:49 PM CDT Narrative 04/02/2013 11:53 PM CDT MRI W WO BRAIN ?? Acc#: ??[id number] DATE OF EXAM: ??Mar 30 2013 CLINICAL HISTORY: Memory loss for several months. ??Shoulder pain for two years ??injury starting lawnmower. ??Possible multiple sclerosis. RESULT: Sagittal FLAIR; axial T1 inversion recovery, T2, FLAIR and diffusion weighted images of the brain were obtained. Ventricles, basal cisterns and cortical sulci are normal. ??Astudillo and white matter signal intensity are normal. ??No mass, hemorrhage, edema or midline shift is seen. ?? No abnormal intraaxial or extraaxial fluid collection is identified. ??Diffusion weighted images demonstrate no diffusion restriction/brain edema. ??Mild bilateral ethmoid sinus inflammatory changes are noted. ??Calvarium and base of skull are otherwise unremarkable. IMPRESSION: 1. NO INTRACRANIAL ABNORMALITY SEEN. 2. MILD BILATERAL ETHMOID SINUS INFLAMMATORY CHANGES. Interpreting Physician: ??MARY ALEJANDRE M.D. ??Read on: ??Apr 02 2013 11:38A Transcribed by: ??kristy ??On: Apr 02 2013 ??1:19P Approved Electronically by: ??MARY ALEJANDRE M.D. ??on: ??Apr 02 2013 11:53P Ordering DR: BORA SALGADO Attending DR: BORA SALGADO Procedure Note Provider, MD Sam - 09/29/2016 MRI W WO BRAIN Acc#: [id number] DATE OF EXAM: Mar 30 2013 CLINICAL HISTORY: Memory loss for several months. Shoulder pain for two years injurystarting lawnmower. Possible multiple sclerosis. RESULT: Sagittal FLAIR; axial T1 inversion recovery, T2, FLAIR and diffusionweighted images of the brain were obtained. Ventricles, basal cisterns andcortical sulci are normal. Astudillo and white matter signal intensity arenormal. No mass, hemorrhage, edema or midline shift is seen. Noabnormal intraaxial or extraaxial fluid collection is identified.Diffusion weighted images demonstrate no diffusion restriction/brainedema. Mild bilateral ethmoid sinus inflammatory changes are noted.Calvarium and base of skull are otherwise unremarkable. IMPRESSION: 1. NO INTRACRANIAL ABNORMALITY SEEN. 2. MILD BILATERAL ETHMOID SINUS INFLAMMATORY CHANGES. Interpreting Physician: MARY ALEJANDRE M.D. Read on: Apr 02 201311:38A Transcribed by: kristy On: Apr 02 2013 1:19P Approved Electronically by: MARY ALEJANDRE M.D. on: Apr 02 201311:53P Ordering DR: BORA SALGADO Attending : BORA SALGADO Historical Provider MD LOCO MRI PROCEDURES Final Result * MRI Upper Extremity Joint W Contrast (03/30/2013 7:29 PM CDT) Anatomical Region Laterality Modality Upper Extremities N/A Magnetic Reson ance 03/30/2013 7:29 PM CDT Narrative 04/02/2013 11:53 PM CDT MRI SHOULDER - RIGHT Acc#: ??[id number] DATE OF EXAM: ??Mar 30 2013 CLINICAL HISTORY: Memory loss for several months. ??Shoulder pain for two years ??injury starting lawnmower. ??Possible multiple sclerosis. RESULT: Coronal oblique PD, PD SPAIR and fat saturation T2; axial PD SPAIR and T1; sagittal oblique T2 weighted SPAIR images of the right shoulder were obtained. Some heterogeneity of signal in the supraspinatus tendon is demonstrated. ??A discrete tear of this tendon is not seen, nor of any other of the rotator cuff tendons. ??There is no obvious labral tear. ??To extent visualized, biceps tendon and its sheath appear intact. ??Marrow signal intensity is normal. ??No abnormal mass or fluid collection is seen. Acromioclavicular joint degenerative change is minimal and not causing impingement. IMPRESSION: 1. MILD SUPRASPINATUS TENDINOSIS/TENDINOPATHY WITHOUT IDENTIFIABLE TEAR. 2. NO OTHER SIGNIFICANT RIGHT SHOULDER ABNORMALITY SEEN. Interpreting Physician: ??MARY ALEJANDRE M.D. ??Read on: ??Apr 02 2013 11:42A Transcribed by: ??kristy ??On: Apr 02 2013 ??1:21P Approved Electronically by: ??MARY ALEJANDRE M.D. ??on: ??Apr 02 2013 11:53P Ordering DR: BORA SALGADO Attending : BORA SALGADO Procedure Note Provider, MD Sam - 09/29/2016 MRI SHOULDER - RIGHT Acc#: [id number] DATE OF EXAM: Mar 30 2013 CLINICAL HISTORY: Memory loss for several months. Shoulder pain for two years injurystarting lawnmower. Possible multiple sclerosis. RESULT: Coronal oblique PD, PD SPAIR and fat saturation T2; axial PD SPAIR andT1; sagittal oblique T2 weighted SPAIR images of the right shoulder wereobtained. Some heterogeneity of signal in the supraspinatus tendon isdemonstrated. A discrete tear of this tendon is not seen, nor of anyother of the rotator cuff tendons. There is no obvious labral tear. Toextent visualized, biceps tendon and its sheath appear intact. Marrowsignal intensity is normal. No abnormal mass or fluid collection is seen.Acromioclavicular joint degenerative change is minimal and not causingimpingement. IMPRESSION: 1. MILD SUPRASPINATUS TENDINOSIS/TENDINOPATHY WITHOUT IDENTIFIABLE TEAR. 2. NO OTHER SIGNIFICANT RIGHT SHOULDER ABNORMALITY SEEN. Interpreting Physician: MARY ALEJANDRE M.D. Read on: Apr 02 201311:42A Transcribed by: kristy On: Apr 02 2013 1:21P Approved Electronically by: MARY ALEJANDRE M.D. on: Apr 02 201311:53P Ordering DR: BORA SALGADO Attending : BORA SALGADO Historical Provider MD LOCO MRI PROCEDURES Final Result documented in this encounter Visit Diagnoses Diagnosis Pain in joint, shoulder region Memory loss Headache Chronic ethmoidal sinusitis Disorder of bursae and tendons in shoulder region Unspecified disorders of bursae and tendons in shoulder region Epigastric pain Abdominal pain, epigastric Diarrhea, unspecified type documented in this encounter
--- OUTSIDE RECORDS SUMMARY | 2024-06-09 08:02 | XMS_ITS | Encounter Summary ---
Author Organization [facility] Healthcare Address [address] [place] [address] Care Team Providers Care Railcar Switcher Name Role Phone Unavailable Primary Care Provider Unavailabl e Encounter Details Date Type Department Care Team (Late st Contact Info) Description 08/28/2008 8:15 AM CDT - 08/28/2008 9:34 AM CDT Hospital Encounter [facility] Destiny Root MD Sebaceous cyst Social History Tobacco Use Types Packs/Day Years Used Date Smoking Tobacco: Never Assessed Comments Unknown Sex and Gender Information Value Date Recorded Sex Assigned at Not on file Legal Sex Female 3:43 AM RODBUSTER Gender Identity Not on file Sexual Orientation Not on file documented as of this encounter Plan of Treatment Upcoming Encounters Date Type Department Care Team (Latest Contact Info) Description 07/25/2024 12:30 PM RODBUSTER Hospital Encounter [address] [address] Yves Krishna MD [address] [facility] [place] [address] 07/25/2024 12:30 PM RODBUSTER - 07/25/2024 1:25 PM RODBUSTER Surgery [address] [address] Yves Krishna MD [address] [facility] [place] [address] ESOPHAGOGASTRODUODENOSCOPY Scheduled Procedures Name Priority Associated Diagnoses Date/Ti or ESOPHAGOGASTRODUODENOSCOPY Epigastric pain Diarrhea, unspecified type 07/25/2024 12:30 PM RODBUSTER COLONOSCOPY Epigastric pain Diarrhea, unspecified type 07/25/2024 12:30 PM RODBUSTER documented as of this encounter Visit Diagnoses Diagnosis Sebaceous cyst Epigastric pain Abdominal pain, epigastric Diarrhea, unspecified type documented in this encounter
--- OUTSIDE RECORDS SUMMARY | 2024-06-09 08:02 | XMS_ITS | Encounter Summary ---
Author Organization [facility] Address [address] [address] Care Team Providers Care Trestleman Name Role Phone Carmen Brown MD Primary Care Provider Encounter Details Date Type Department Care Team (Late st Contact Info) Description 06/25/2016 Orders Only [facility] Health Information Management [address] [place] [id number] Scanning, Provider Social History Tobacco Use Types Packs/Day Years Used Date Smoking Tobacco: Never Assessed Comments Unknown Sex and Gender Information Value Date Recorded Sex Assigned at Not on file Legal Sex Female 3:43 AM TUBE DRAWING SUPERVISOR Gender Identity Not on file Sexual Orientation Not on file documented as of this encounter Plan of Treatment Upcoming Encounters Date Type Department Care Team (Latest Contact Info) Description 07/25/2024 12:30 PM TUBE DRAWING SUPERVISOR Hospital Encounter [address] [address] Yves Krishna MD [address] [facility] [place] [place] [address] 07/25/2024 12:30 PM TUBE DRAWING SUPERVISOR - 07/25/2024 1:25 PM TUBE DRAWING SUPERVISOR Surgery [address] [address] Yves Krishna MD [address] [facility] [place] [place] [address] ESOPHAGOGASTRODUODENOSCOPY Scheduled Procedures Name Priority Associated Diagnoses Date/Ti nv ESOPHAGOGASTRODUODENOSCOPY Epigastric pain Diarrhea, unspecified type 07/25/2024 12:30 PM TUBE DRAWING SUPERVISOR COLONOSCOPY Epigastric pain Diarrhea, unspecified type 07/25/2024 12:30 PM TUBE DRAWING SUPERVISOR documented as of this encounter Procedures Procedure Name Priority Date/Time Associated Diagnosis Comments SCAN - RADIOLOGY/IMAGING 06/25/2016 documented in this encounter Results * SCAN - RADIOLOGY/IMAGING (06/25/2016) Anatomical Region Laterality Modality Other us Provider Scanning Final Result documented in this encounter Visit Diagnoses Not on filedocumented in this encounter Care Teams Trestleman Relationship Specialty Start Date End Date Carmen Brown MD PCP - General Family Practice 11/02/16 06/02/22 documented as of this encounter
--- OUTSIDE RECORDS SUMMARY | 2024-06-09 08:02 | XMS_ITS | Encounter Summary ---
Author Organization [facility] Healthcare Address [address] [place] [address] Care Team Providers Care Utility Bill Collector Name Role Phone Unavailable Primary Care Provider Unavailabl e Encounter Details Date Type Department Care Team (Late st Contact Info) Description 05/10/2016 5:25 PM ER TECH - 05/10/2016 11:59 PM ER TECH Hospital Encounter [facility] Andrea Calderon MD [address] [facility] [address] [place] [address] Radha Sun NP [address] [facility] [address] TANVIR [address] [place] [address] Amenorrhea Social History Tobacco Use Types Packs/Day Years Used Date Smoking Tobacco: Never Assessed Comments Unknown Sex and Gender Information Value Date Recorded Sex Assigned at Not on file Legal Sex Female 3:43 AM ER TECH Gender Identity Not on file Sexual Orientation [...] (Latest Contact Info) Description 07/25/2024 12:30 PM ER TECH Hospital Encounter [facility] [address] [place] [address] Yves Krishna MD [address] [facility] [address] [place] [address] 07/25/2024 12:30 PM ER TECH - 07/25/2024 1:25 PM ER TECH Surgery [address] [address] Yves Krishna MD [address] [facility] [address] [place] [address] ESOPHAGOGASTRODUODENOSCOPY Scheduled Procedures Name Priority Associated Diagnoses Date/Ti me ESOPHAGOGASTRODUODENOSCOPY Epigastric pain Diarrhea, unspecified type 07/25/2024 12:30 PM ER TECH COLONOSCOPY Epigastric pain Diarrhea, unspecified type 07/25/2024 12:30 PM ER TECH documented as of this encounter Procedures Procedure Name Priority Date/Time Associated Diagnosis Comments SERUM CHORIONIC GONADOTROPIN (HCG), QUANTITATIVE Routine 05/10/2016 5:30 PM ER TECH DISCHARGE LABORATORY CUMULATIVE REPORT 05/10/2016 documented in this encounter Results * (ABNORMAL) Serum chorionic gonadotropin (HCG), quantitative (05/10/2016 5:30 PM ER TECH) HCG, quant 28.0(H) 0.0 - 5.0 IUnits/L CDR HISTORICAL RESULTS Comment: Interpretive Data Negative: ? <5 mIU/mL ? Borderline: ??6-25 mIU/mL Positive: ? >25 mIU/mL Approx Gest Age ? Approx HCG Concentration 3 - 4 Weeks ?9 - 130 4 - 5 Weeks ?75 - 2600 5 - 6 Weeks ?850 - 20,800 6 - 7 Weeks ?4000 - 100,200 7 - 12 Weeks ? [address] - 289,000 16 - 29 Weeks ? [address] - 137,000 29 - 41 Weeks ? 900 - 60,000 Current interpretive data was last revised on 2014 Serum 05/10/2016 5:30 PM ER TECH Historical Provider LAB BLOOD ORDERABLES Vi l Result Performing Organization Address City/State/[facility] Co de Phone Number CDR HISTORICAL RESULTS * DISCHARGE LABORATORY CUMULATIVE REPORT (05/10/2016) Narrative 05/10/2016 Ordered by an unspecified provider. us Historical Provider MD LAB BLOOD ORDERABLES Vi l Result documented in this encounter Visit Diagnoses Diagnosis Amenorrhea Absence of menstruation Epigastric pain Abdominal pain, epigastric Diarrhea, unspecified type documented in this encounter
--- OUTSIDE RECORDS SUMMARY | 2024-06-09 08:02 | XMS_ITS | Encounter Summary ---
Author Organization [facility] Address [address] [facility] [address] [place] [address] Care Team Providers Care Brickmason Supervisor Name Role Phone Unavailable Primary Care Provider Unavailabl e Encounter Details Date Type Department Care Team (Late st Contact Info) Description 08/29/2016 Orders Only [facility] [address] [facility] [address] [place] [phone] Andrea Addison MD [address] [facility] [address] [place] [address] Social History Tobacco Use Types Packs/Day Years Used Date Smoking Tobacco: Never Assessed Comments Unknown Sex and Gender Information Value Date Recorded Sex Assigned at Not on file Legal Sex Female 3:[address] INSTALLER Gender Identity Not on file Sexual Orientation Not on file documented as of this encounter Plan of Treatment Upcoming Encounters Date Type Department Care Team (Latest Contact Info) Description 07/25/2024 12:[address]ER INSTALLER Hospital Encounter [address] [address]Yves Franklin MD [address] [facility] [address] [place] [address] 07/25/2024 12:[address] INSTALLER - 07/25/2024 1:[address] INSTALLER Surgery [address] [address]Yves Franklin MD [address] [facility] [address] [place] [address] ESOPHAGOGASTRODUODENOSCOPY Scheduled Procedures Name Priority Associated Diagnoses Date/Ti me ESOPHAGOGASTRODUODENOSCOPY Epigastric pain Diarrhea, unspecified type 07/25/2024 12:[address] INSTALLER COLONOSCOPY Epigastric pain Diarrhea, unspecified type 07/25/2024 12:[address] INSTALLER documented as of this encounter Procedures Procedure Name Priority Date/Time Associated Diagnosis Comments DRUGS OF ABUSE SCREEN, URINE WITHOUT CONFIRMATION STAT 08/29/2016 5:05 PM CDT documented in this encounter Results * Drug screen, urine (08/29/2016 5:05 PM CDT) Amphetamines, Class Negative Screen Negative Screen YAMILETH SALAS ([place]) Comment: Interpretive Data Amphetamines cut off value 1000 ng/mL Current interpretive data was last revised on 2014. Barbiturates, Class Negative Screen Negative Screen CERNER JOSUE ([place]) Comment: Interpretive Data Barbiturates cut off value 200 ng/mL Current interpretive data was last revised on 2014. Benzodiazepines, ur Negative Screen Negative Screen CERNER JOSUE ([place]) Comment: Interpretive Data Benzodiazepines cut off value 200 ng/mL Current interpretive data was last revised on 2014. Cannabinoids, Screen Negative Screen Negative Screen [facility] ([place]) Comment: Interpretive Data THC/Marijuana cut off value 50 ng/mL Current interpretive data was last revised on 2014. Cocaine metabolite Negative Screen Negative Screen CERRYANN SALAS ([place]) Comment: Interpretive Data Cocaine cut off value 300 ng/mL Current interpretive data was last revised on 2014. Opiates, Class Negative Screen Negative Screen CERNER JOSUE ([place]) Comment: Interpretive Data Opiates cut off value 2000 ng/mL Current interpretive data was last revised on 2014. Phencyclidine, ur Negative Screen Negative Screen [facility] ([place]) Comment: Interpretive Data PCP cut off value 25 ng/mL All drugs included in this panel are screening testing only. All positive urines will be confirmed upon Doctor request only. Unconfirmed screening results must not be used for non-medical purposes. Current interpretive data was last revised on 2014. Urine/Blood 08/29/2016 5:05 PM CDT 08/29/2016 5:15 PM CDT us Andrea Addison MD LAB URINE ORDERABLES Edite d Result - Final [facility] ([place]) [address] [facility] [place] [address] documented in this encounter Visit Diagnoses Not on filedocumented in this encounter
--- OUTSIDE RECORDS SUMMARY | 2024-06-09 08:03 | XMS_ITS | Encounter Summary ---
Author Organization [facility] Healthcare Address [address] [place] [address] Care Team Providers Care Cripple Worker Name Role Phone Unavailable Primary Care Provider Unavailabl e Encounter Details Date Type Department Care Team (Late st Contact Info) Description 03/26/2008 10:00 AM CDT - 03/26/2008 10:55 AM CDT Hospital Encounter [facility] Radames Ha MD [address] [address] Sania Reinoso Social History Tobacco Use Types Packs/Day Years Used Date Smoking Tobacco: Never Assessed Comments Unknown Sex and Gender Information Value Date Recorded Sex Assigned at Not on file Legal Sex Female 3:43 AM BIZTALK ADMINISTRATOR Gender Identity Not on file Sexual Orientation Not on file documented as of this encounter Plan of Treatment Upcoming Encounters Date Type Department Care Team (Latest Contact Info) Description 07/25/2024 12:30 PM BIZTALK ADMINISTRATOR Hospital Encounter [address] [address]Yves Franklin MD 4 [facility] [place] [address] 07/25/2024 12:30 PM BIZTALK ADMINISTRATOR - 07/25/2024 1:25 PM BIZTALK ADMINISTRATOR Surgery [address] [address]Yves Franklin MD [address] [facility] [address] ESOPHAGOGASTRODUODENOSCOPY Scheduled Procedures Name Priority Associated Diagnoses Date/Ti me ESOPHAGOGASTRODUODENOSCOPY Epigastric pain Diarrhea, unspecified type 07/25/2024 12:30 PM BIZTALK ADMINISTRATOR COLONOSCOPY Epigastric pain Diarrhea, unspecified type 07/25/2024 12:30 PM BIZTALK ADMINISTRATOR documented as of this encounter Visit Diagnoses Not on filedocumented in this encounter
--- OUTSIDE RECORDS SUMMARY | 2024-06-09 08:03 | XMS_ITS | Encounter Summary ---
Author Organization [facility] Healthcare Address [address] [place] [address] Care Team Providers Care Data Virtualization Consultant Name Role Phone Unavailable Primary Care Provider Unavailabl e Encounter Details Date Type Department Care Team (Late st Contact Info) Description 08/02/2006 5:42 PM GAS DISTRIBUTION PLANT OPERATOR - 08/04/2006 10:23 AM GAS DISTRIBUTION PLANT OPERATOR Hospital Encounter [facility] Fahad Peterson Social History Tobacco Use Types Packs/Day Years Used Date Smoking Tobacco: Never Assessed Comments Unknown Sex and Gender Information Value Date Recorded Sex Assigned at Not on file Legal Sex Female 3:43 AM GAS DISTRIBUTION PLANT OPERATOR Gender Identity Not on file Sexual Orientation Not on file documented as of this encounter Plan of Treatment Upcoming Encounters Date Type Department Care Team (Latest Contact Info) Description 07/25/2024 12:30 PM GAS DISTRIBUTION PLANT OPERATOR Hospital Encounter [address] [address] Yves Krishna MD [address] [facility] [place] [address] 07/25/2024 12:30 PM GAS DISTRIBUTION PLANT OPERATOR - 07/25/2024 1:25 PM GAS DISTRIBUTION PLANT OPERATOR Surgery [address] [address] Yves Krishna MD [address] [facility] [place] [address] ESOPHAGOGASTRODUODENOSCOPY Scheduled Procedures Name Priority Associated Diagnoses Date/Ti ca ESOPHAGOGASTRODUODENOSCOPY Epigastric pain Diarrhea, unspecified type 07/25/2024 12:30 PM GAS DISTRIBUTION PLANT OPERATOR COLONOSCOPY Epigastric pain Diarrhea, unspecified type 07/25/2024 12:30 PM GAS DISTRIBUTION PLANT OPERATOR documented as of this encounter Visit Diagnoses Not on filedocumented in this encounter
--- OUTSIDE RECORDS SUMMARY | 2024-06-09 08:03 | XMS_ITS | Encounter Summary ---
Author Organization [facility] Healthcare Address [address] [place] [address] Care Team Providers Care Narrow Fabrics Weaver Name Role Phone Unavailable Primary Care Provider Unavailabl e Encounter Details Date Type Department Care Team (Late st Contact Info) Description 11/11/2006 2:04 PM CDT - 11/11/2006 2:45 PM CDT Hospital Encounter [facility] CLINJaclyn Leo Tanin Social History Tobacco Use Types Packs/Day Years Used Date Smoking Tobacco: Never Assessed Comments Unknown Sex and Gender Information Value Date Recorded Sex Assigned at Not on file Legal Sex Female 3:43 AM ENGINEERING PROGRAM MANAGER Gender Identity Not on file Sexual Orientation Not on file documented as of this encounter Plan of Treatment Upcoming Encounters Date Type Department Care Team (Latest Contact Info) Description 07/25/2024 12:30 PM ENGINEERING PROGRAM MANAGER Hospital Encounter [address] [address] Yves Krishna MD 4 [facility] [address] 07/25/2024 12:30 PM ENGINEERING PROGRAM MANAGER - 07/25/2024 1:25 PM ENGINEERING PROGRAM MANAGER Surgery [address] [address]Yves Franklin MD [address] [facility] [place] [address] ESOPHAGOGASTRODUODENOSCOPY Scheduled Procedures Name Priority Associated Diagnoses Date/Ti az ESOPHAGOGASTRODUODENOSCOPY Epigastric pain Diarrhea, unspecified type 07/25/2024 12:30 PM ENGINEERING PROGRAM MANAGER COLONOSCOPY Epigastric pain Diarrhea, unspecified type 07/25/2024 12:30 PM ENGINEERING PROGRAM MANAGER documented as of this encounter Visit Diagnoses Not on filedocumented in this encounter
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
--- OUTSIDE RECORDS SUMMARY | 2024-06-09 08:03 | XMS_ITS | Encounter Summary ---
Author Organization [facility] Healthcare Address [address] [place] [address] Care Team Providers Care Radiation Oncology Therapist Name Role Phone Unavailable Primary Care Provider Unavailabl e Encounter Details Date Type Department Care Team (Late st Contact Info) Description 06/24/2006 6:52 PM JUNIOR SYSTEMS ANALYST - 06/24/2006 9:04 PM JUNIOR SYSTEMS ANALYST Hospital Encounter [facility] Fahad Peterson Social History Tobacco Use Types Packs/Day Years Used Date Smoking Tobacco: Never Assessed Comments Unknown Sex and Gender Information Value Date Recorded Sex Assigned at Not on file Legal Sex Female 3:43 AM JUNIOR SYSTEMS ANALYST Gender Identity Not on file Sexual Orientation Not on file documented as of this encounter Plan of Treatment Upcoming Encounters Date Type Department Care Team (Latest Contact Info) Description 07/25/2024 12:30 PM JUNIOR SYSTEMS ANALYST Hospital Encounter [address] [address] Yves Krishna MD [address] [facility] [place] [address] 07/25/2024 12:30 PM JUNIOR SYSTEMS ANALYST - 07/25/2024 1:25 PM JUNIOR SYSTEMS ANALYST Surgery [address] [address] Yves Krishna MD [address] [facility] [place] [address] ESOPHAGOGASTRODUODENOSCOPY Scheduled Procedures Name Priority Associated Diagnoses Date/Ti tx ESOPHAGOGASTRODUODENOSCOPY Epigastric pain Diarrhea, unspecified type 07/25/2024 12:30 PM JUNIOR SYSTEMS ANALYST COLONOSCOPY Epigastric pain Diarrhea, unspecified type 07/25/2024 12:30 PM JUNIOR SYSTEMS ANALYST documented as of this encounter Visit Diagnoses Not on filedocumented in this encounter
== END 2024-06-02 08:59 | disposition home or self-care (01) ==
PROVIDERS: Emergency Provider Nurse Practitioner Family; PCP Physician Assistant
DX: L08.89 Other specified local infections of the skin and subcutaneous tissue (principal); B95.8 Unspecified staphylococcus as the cause of diseases classified elsewhere; Z87.891 Personal history of nicotine dependence; M79.7 Fibromyalgia; E66.9 Obesity, unspecified; Z68.38 Body mass index [BMI] 38.0-38.9, adult
CPT/HCPCS: 99213; G0463

== ENCOUNTER 2024-07-18 14:28 | Emergency (ER) | payer OTHER, SELFPAY ==
[2024-07-18 14:33] VITALS: BP 141/95; PULSE 89; RESP 16; TEMP 36.6; O2SAT 100
--- OUTSIDE RECORDS SUMMARY | 2024-07-18 14:33 | XMS_ITS | Encounter Summary ---
Author Organization [facility] Address [address] [place] [address] Phone Care Team Providers Care Eddy Current Inspector Name Role Phone Adam Alejo DO Unavailable [phone] Johnna Valente APARTMENT LOCATOR, BANANA HANDLER Unavailable [phone] Marisela Chaidez APARTMENT LOCATOR, BANANA HANDLER Unavailable Johnathan Pugh MD Unavailable [phone] Gwen Calero PAC Primary Care Pro vider Reason for Visit * Reason Comments Medication Refill Encounter Details Date Type Department Care Team (Late st Contact Info) Description 10/18/2023 Refill [facility] - Internal Medicine - [place] [address] [place] [id number] Gwen Calero, PAC [address] [place] [address] Medication Refill Social History Tobacco Use Types Packs/Day Years Used Date Smoking Tobacco: Former Cigarettes Q uit: 05/08/2016 Passive Smoke Exposure: Past Smokeless Tobacco: Never Comments:occasional smoker Alcohol Use Standard Drinks/Week Comments Yes 6 (1 standard drink = 0.6 oz pure alcohol) drinks three bottles of wine a week [facility] Utilities Answer Date Recorded In the past 12 months has [employer], gas, oil, or water [employer] threatened to shut off services in your [...] often do you attend chur ch or mandaen services? More than 4 times per year 06/10/2023 Do you belong to any clubs o r organizations such as buddhist groups, unions, fraternal or athletic groups, or [...] Total Score - Questions 1-9 12 01/05 [facility] - Occupational Stress Questionnaire Answer [...] in a correction (including now)? Patient declined 06/10/2023 Education Answer [...] Care Team (Late st Contact Info) Description 08/13/2024 9:00 AM CDT Office Visit [facility] - Internal Medicine [facility] [address] [place] [phone] Gwen Calero, [facility] [address] [place] [address] documented as of this encounter Goals Goal [...] Ready to change Department associated with goal: [facility] Steps [...] documented as of this encounter Care Teams Eddy Current Inspector Relationship Specialty Start Date End Date Gwen Calero PAC [address] [place] [address] PCP - General Physician Senior Auditor 06/12/21 Adam Alejo DO Gastroenterology 01/07/16 Johnna Valente APRN, BANANA HANDLER Nurse Practitioner Advanced Practice Nurse 01/07/16 Marisela Chaidez, MICHAEL, BANANA HANDLER Nurse Practitioner Advanced Practice Nurse 01/07/16 Johnathan Pugh MD [address] [place] [address] Obstetrics & Gynecology 08/13/19 documented as of this encounter
--- OUTSIDE RECORDS SUMMARY | 2024-07-18 14:33 | XMS_ITS | Clinical Summary ---
Author Organization [facility] Address [address] [place] [address] Care Team Providers Care Money Order Clerk Name Role Phone Andrea Addison MD Unavailable Unavailab le Source Comments [facility],non-owned Affiliates and Associated Physician Practices is amultiple site organization consisting of ambulatory clinics and hospital sitesin [place], [place], [place] and [place]. This disclosure is being madepursuant to the Care Everywhere program and may not contain all information available regarding this patient. Last updated 18.[facility] Dagne Dover Social History Tobacco Use Types Packs/Day Years [...] of 3 - 19+ 3-dose series) 2004 COVID-19 VACCINE ( - 2023-2 5 season) 2024 INFLUENZA VACCINE (#1) 2024 DEPRESSION SCREENING 06/06/2024 ZOSTER VACCINE (1 of 2) 2035 HIB VACCINE Aged Out No longer eligi ble based on patient's age to complete this topic HPV VACCINE Aged Out No longer eligi ble based on patient's age to complete this topic MENINGOCOCCAL (Group B) VACCINE Aged Out No longer eligible based on patient's age to complete this topic MENINGOCOCCAL VACCINE Aged Out No carlton marilynn eligible based on patient's age to complete this topic PNEUMOCOCCAL VACCINE Aged Out No long er eligible based on patient's age to complete this topic Care Teams Money Order Clerk Relationship Specialty Start Date End Date Andrea Addison MD Manager Of Product Obstetrics and Gynecology 12/22/16
--- OUTSIDE RECORDS SUMMARY | 2024-07-18 14:33 | XMS_ITS | Clinical Summary ---
Author Organization [facility] Care Team Providers Care Disability Attorney Name Role Phone Adam Alejo DO Unavailable [phone] Johnna Valente COMMUNITY MARKETING COORDINATOR, DINING MANAGER Unavailable [phone] Marisela Chaidez COMMUNITY MARKETING COORDINATOR, DINING MANAGER Unavailable Johnathan Pugh MD Unavailable [phone] Gwen Calero PAC Primary Care Pro vider Allergies No known active allergies Medications omeprazole (PriLOSEC) 20 MG CAPSULE DELAYED RELEASE Take 1 Capsule by mouth daily. 90 Capsule 3 11/08/2023 Active busPIRone (BUSPAR) 10 MG Tablet TAKE 1 TABLET BY MOUTH EVERY NIGHT 90 Tablet 2 05/21/2024 Active Phentermine HCl 37.5 MG TabletIndicatio ns:Overweight Take 1 Tablet by mouth every morning (before breakfast). 30 Tablet 2 06/08/2024 Active Active Problems Problem Noted Date Diagnosed [...] Encounters Date Type Department Care Team Description 06/19/2024 8:59 AM INSPECTOR PACKAGER - 06/19/2024 11:59 PM INSPECTOR PACKAGER Hospital [facility] Ultrasound [address] [place] [address] Gwen Calero, CECY Discharge Disposition: Discharged to home or Selfcare 06/19/2024 8:00 AM INSPECTOR PACKAGER - 06/19/2024 8:58 AM INSPECTOR PACKAGER Hospital [facility] Mammography [address] [place] [address] Gwen Calero, CECY Discharge Disposition: Discharged to home or Selfcare 06/19/2024 Results Follow-Up [facility] Primary Care [facility] [address] [place] [address] Gwen Calero, CECY 06/17/2024 Travel 06/08/2024 8:45 AM INSPECTOR PACKAGER Office Visit [facility] Internal Medicine [facility] [address] [place] [address] Gwen Calero, CECY Gastroesophageal reflux disease, unspecified whether esophagitis present (Primary Dx); Well adult exam; Screening for diabetes mellitus; Screening cholesterol level; Thyroid disorder screening; Mass of right axilla; Overweight; Yeast cystitis Discharge Disposition: Discharged to home or Selfcare 06/08/2024 Travel 05/28/2024 Results [facility] [address] [place] [address] Gwen Calero, CECY 05/21/2024 Refill [facility] Internal Medicine [facility] [address] [place] [address] Gwen Calero, CECY Medication Refill 05/19/2024 9:30 AM INSPECTOR PACKAGER - 05/19/2024 11:59 PM INSPECTOR PACKAGER Hospital [facility] Ultrasound 1 [facility] [place] [address] Gwen Calero, PAC Discharge Disposition: Discharged to home or Selfcare 05/19/2024 Travel 05/07/2024 9:15 AM INSPECTOR PACKAGER [facility] [place] [address] [place] [address] Gwen Calero, CECY Boil (Primary Dx); Enlarged lymph node; Screening mammogram for breast cancer; Dog bite, initial encounter; Hematoma Discharge Disposition: Discharged to home or Selfcare 05/07/2024 Travel from Last 3 Months Immunizations Immunization Administration [...] drinks three bottles of wine a week [facility] Utilities Answer Date Recorded In the past 12 months has e [employer], gas, oil, or water [employer] threatened to shut off services in your home? No 11/08/2023 Social Connection and Isolat ion Panel [NHANES] Answer Date Recorded In a typical week, how many times do you talk on the phone with family, friends, or neighbors? More than three times a week 11/08/2023 How often do you get togethe r with friends or relatives? More than three times a week 11/08/2023 Attends Mandaeism Services Not on file 11/07 Active Member of Clubs or Organizations Not on f ile 11/08/2023 Attends Club or Organization Meetings Not on pete e 11/08/2023 Marital Status Not on file 11/08/2023 AUDIT-C Answer Date Recorded Q1: How [...] Total Score - Questions 1-9 12 01/05 [facility] - Occupational Stress [...] Comments Blood Pressure 126/88 06/08/2024 8:38 AM INSPECTOR PACKAGER Pulse 78 06/08/2024 8:38 AM INSPECTOR PACKAGER Temperature 36.4 C (97.5 F) 06/08/2024 8:38 AM INSPECTOR PACKAGER Respiratory Rate 12 06/08/2024 8:38 AM INSPECTOR PACKAGER Oxygen Saturation 98% 06/08/2024 8:38 AM INSPECTOR PACKAGER Inhaled Oxygen Concentration - - Weight 93.9 kg (207 lb) 06/08/2024 8:38 AM INSPECTOR PACKAGER Height 160 cm (5' 3 ) 11/08/2023 8:27 AM CDT Body Mass Index 36.67 11/08/2023 8:27 AM CDT Plan of Treatment Upcoming Encounters Date Type Department Care Team (Late st Contact Info) Description 08/13/2024 9:00 AM CDT Office Visit [facility] [place] [address] [place] [address] Gwen Calero, PAC [address] [place] [address] Health Maintenance Due Date Last Done Comments Hepatitis C Virus (HCV) Screening 1985 Hepatitis B Immunization (1 of 3 - 19+ 3-dose series) 2004 Pap Smear 2006 Cervical Cancer Screening (CCS) 2015 HPV/Cotest 2015 Influenza Immunization (#1) 2024 01/0 10/2023, 05/29/2020, 03/24/2018 SARS-COV-2 Immunization ( season) 2024 Td Immunization Every 10 Yea [...] Procedure Name Priority Date/Time Associated Diagnosis Comments [facility] US BREAST LIMITED RT Routine 06/19/2024 9:58 AM INSPECTOR PACKAGER Enlarged lymph node Screening mammogram for breast cancer KIRSTEN DIAG BILATERAL DIGITAL W CAD W RACHELL Routine 06/19/2024 9:06 AM INSPECTOR PACKAGER Enlarged lymph node Screening mammogram for breast cancer US RIGHT EXTREMITY NON-VASC LTD Routine 05/19/2024 10:14 AM INSPECTOR PACKAGER Enlarged lymph node from Last 3 Months Results * [facility] US BREAST LIMITED RT (06/19/2024 9:58 AM INSPECTOR PACKAGER) Anatomical Region Laterality Modality breast Right Ultrasound 06/19/2024 8:06 AM INSPECTOR PACKAGER Narrative 06/19/2024 12:54 PM INSPECTOR PACKAGER - KIRSTEN DIAG BILATERAL DIGITAL W CAD W RACHELL - KIRSTEN US BREAST LIMITED RT BILATERAL DIGITAL DIAGNOSTIC MAMMOGRAM 3D/2D WITH CAD WITH EXAGGERATED CC AXILLARY TAIL MEDIOLATERAL OBLIQUE CRANIOCAUDAL AND RIGHT ULTRASOUND: 06/19/2024 The study was acquired using digital technology and interpreted from soft copy. Current study was also evaluated with ICAD version 7.2. 2D digital mammographic views, as well as 3D digital tomosynthesis were performed in the CC and MLO projections. CLINICAL: Diagnostic study. Patient reports chronic pain and lump right axilla for three years, but has recently increased. No personal history of cancer. No family history of breast cancer. COMPARISONS: Comparison is made to exams dated: 04/27/2022, 04/27/2022, and 05/26/2020 [facility]. BREAST TISSUE:The breasts are heterogeneously dense, which may obscure small masses. FINDINGS: No significant masses or calcifications are seen in either breast on the mammogram or targeted right breast ultrasound. At the palpable area of concern in the right axilla, a benign-appearing lymph node is seen as noted previously. IMPRESSION: OVERALL STUDY BIRADS: CATEGORY 2: BENIGN There is no mammographic or sonographic evidence of malignancy. A 1 year screening mammogram is recommended. The results and recommendations were discussed with the patient. Electronically signed by: Hawa Honeycutt M.D. ll/:06/19/2024 09:57:38 Emergency Medicine Physician Assistant(s): Lynn Singh RDMS, [facility]; RT Hua(R)(M), [facility] letter sent: Normal Exam Reading location: [facility] OVERALL STUDY BIRADS: Category 2: Benign Procedure Note Hawa Honeycutt MD - 06/19/2024 - KIRSTEN DIAG BILATERAL DIGITAL W CAD W RACHELL - KIRSTEN US BREAST LIMITED RT BILATERAL DIGITAL DIAGNOSTIC MAMMOGRAM 3D/2D WITH CAD WITH EXAGGERATED CC AXILLARY TAIL MEDIOLATERAL OBLIQUE CRANIOCAUDAL AND RIGHT ULTRASOUND: 06/19/2024 The study was acquired using digital technology and interpreted from soft copy. Current study was also evaluated with ICAD version 7.2. 2D digital mammographic views, as well as 3D digital tomosynthesis were performed in the CC and MLO projections. CLINICAL: Diagnostic study. Patient reports chronic pain and lump right axilla for three years, but has recently increased. No personal history of cancer. No family history of breast cancer. COMPARISONS: Comparison is made to exams dated: 04/27/2022, 04/27/2022, and 05/26/2020 [facility]. BREAST TISSUE:The breasts are heterogeneously dense, which may obscure small masses. FINDINGS: No significant masses or calcifications are seen in either breast on the mammogram or targeted right breast ultrasound. At the palpable area of concern in the right axilla, a benign-appearing lymph node is seen as noted previously. IMPRESSION: OVERALL STUDY BIRADS: CATEGORY 2: BENIGN There is no mammographic or sonographic evidence of malignancy. A 1 year screening mammogram is recommended. The results and recommendations were discussed with the patient. Electronically signed by: Hawa Honeycutt M.D. ll/:06/19/2024 09:57:38 Emergency Medicine Physician Assistant(s): Lynn Singh RDMS, [facility]; RT Hau(R)(M), [facility] letter sent: Normal Exam Reading location: [facility] OVERALL STUDY BIRADS: Category 2: Benign Gwen Calero PAC IMG MAMMO ORDERAB LES Final Result * KIRSTEN DIAG BILATERAL DIGITAL W CAD W RACHELL (06/19/2024 9:06 AM INSPECTOR PACKAGER) Anatomical Region Laterality Modality breast Bilateral Mammography 06/19/2024 8:06 AM INSPECTOR PACKAGER Narrative 06/19/2024 12:54 PM INSPECTOR PACKAGER - KIRSTEN DIAG BILATERAL DIGITAL W CAD W RACHELL - KIRSTEN US BREAST LIMITED RT BILATERAL DIGITAL DIAGNOSTIC MAMMOGRAM 3D/2D WITH CAD WITH EXAGGERATED CC AXILLARY TAIL MEDIOLATERAL OBLIQUE CRANIOCAUDAL AND RIGHT ULTRASOUND: 06/19/2024 The study was acquired using digital technology and interpreted from soft copy. Current study was also evaluated with ICAD version 7.2. 2D digital mammographic views, as well as 3D digital tomosynthesis were performed in the CC and MLO projections. CLINICAL: Diagnostic study. Patient reports chronic pain and lump right axilla for three years, but has recently increased. No personal history of cancer. No family history of breast cancer. COMPARISONS: Comparison is made to exams dated: 04/27/2022, 04/27/2022, and 05/26/2020 [facility]. BREAST TISSUE:The breasts are heterogeneously dense, which may obscure small masses. FINDINGS: No significant masses or calcifications are seen in either breast on the mammogram or targeted right breast ultrasound. At the palpable area of concern in the right axilla, a benign-appearing lymph node is seen as noted previously. IMPRESSION: OVERALL STUDY BIRADS: CATEGORY 2: BENIGN There is no mammographic or sonographic evidence of malignancy. A 1 year screening mammogram is recommended. The results and recommendations were discussed with the patient. Electronically signed by: Hawa Honeycutt M.D. ll/:06/19/2024 09:57:38 Emergency Medicine Physician Assistant(s): Lynn Singh RDMS, [facility]; RT Hua(R)(M), [facility] letter sent: Normal Exam Reading location: [facility] OVERALL STUDY BIRADS: Category 2: Benign Procedure Note Hawa Honeycutt MD - 06/19/2024 - KIRSTEN DIAG BILATERAL DIGITAL W CAD W RACHELL - KIRSTEN US BREAST LIMITED RT BILATERAL DIGITAL DIAGNOSTIC MAMMOGRAM 3D/2D WITH CAD WITH EXAGGERATED CC AXILLARY TAIL MEDIOLATERAL OBLIQUE CRANIOCAUDAL AND RIGHT ULTRASOUND: 06/19/2024 The study was acquired using digital technology and interpreted from soft copy. Current study was also evaluated with ICAD version 7.2. 2D digital mammographic views, as well as 3D digital tomosynthesis were performed in the CC and MLO projections. CLINICAL: Diagnostic study. Patient reports chronic pain and lump right axilla for three years, but has recently increased. No personal history of cancer. No family history of breast cancer. COMPARISONS: Comparison is made to exams dated: 04/27/2022, 04/27/2022, and 05/26/2020 [facility]. BREAST TISSUE:The breasts are heterogeneously dense, which may obscure small masses. FINDINGS: No significant masses or calcifications are seen in either breast on the mammogram or targeted right breast ultrasound. At the palpable area of concern in the right axilla, a benign-appearing lymph node is seen as noted previously. IMPRESSION: OVERALL STUDY BIRADS: CATEGORY 2: BENIGN There is no mammographic or sonographic evidence of malignancy. A 1 year screening mammogram is recommended. The results and recommendations were discussed with the patient. Electronically signed by: Hawa Honeycutt M.D. ll/:06/19/2024 09:57:38 Emergency Medicine Physician Assistant(s): Lynn Singh RDMS, [facility]; RT Hua(R)(M), [facility] sent: Normal Exam Reading location: [facility] OVERALL STUDY BIRADS: Category 2: Benign Gwen Calero PAC IMG MAMMO ORDERAB LES Final Result * US RIGHT EXTREMITY NON-VASC LTD (05/19/2024 10:14 AM INSPECTOR PACKAGER) Anatomical Region Laterality Modality BODY Right Ultrasound 05/25/2024 2:41 PM INSPECTOR PACKAGER Impressions 05/25/2024 2:43 PM INSPECTOR PACKAGER IMPRESSION: Unremarkable lymph nodes with a very thin cortex, similar to the previous ultrasound. Narrative 05/25/2024 2:43 PM INSPECTOR PACKAGER EXAM DESCRIPTION: US RIGHT EXTREMITY NON-VASC LTD REASON FOR STUDY: RIGHT axillary lymph node TECHNIQUE: A Dynamic assessment was performed of the right axilla by the graphotype operator, with selected grayscale and color Doppler images acquired and recorded in PACS. COMPARISON: 05/26/2020 FINDINGS: SKIN AND SUBCUTANEOUS TISSUES: Several lymph nodes with a very thin cortex are similar to the previous ultrasound. OTHER: No other significant finding. THIS IS AN ELECTRONICALLY VERIFIED FINAL REPORT 05/25/2024 2:41 PM - Electronically signed by Loren Madrid M.D. RONNELL: RONNELL Report ID: [id number] Reading Location: [id number] Procedure Note Joaquim Madrid MD - 05/25/2024 EXAM DESCRIPTION: US RIGHT EXTREMITY NON-VASC LTD REASON FOR STUDY: RIGHT axillary lymph node TECHNIQUE: A Dynamic assessment was performed of the right axilla by the graphotype operator, with selected grayscale and color Doppler images acquired and recorded in PACS. COMPARISON: 05/26/2020 FINDINGS: SKIN AND SUBCUTANEOUS TISSUES: Several lymph nodes with a very thin cortex are similar to the previous ultrasound. OTHER: No other significant finding. THIS IS AN ELECTRONICALLY VERIFIED FINAL REPORT 05/25/2024 2:41 PM - Electronically signed by Lorne Madrid M.D. RONNELL: RONNELL Report ID: [id number] Reading Location: [id number] IMPRESSION: Unremarkable lymph nodes with a very thin cortex, similar to the previous ultrasound. us Gwen Karishma Galilea PAC IMG US ORDERABLES Final Result from Last 3 Months Insurance MEDICAID [place] Advance Directives * Full Code (Latest Code [...] 12/16/2016 1:04 PM 12/16/2016 6:17 PM CPR-Full Tr eatment: FULL ARREST: Attempt [...] measures to stabilize the patient. Care Teams Disability Attorney Relationship Specialty Start Date End Date Gwen Calero PAC [address] [place] [address] PCP - General Physician Private Detective 06/12/21 Adam Alejo DO Gastroenterology 01/07/16 Johnna Valente APRN, DINING MANAGER Nurse Practitioner Advanced Practice Nurse 01/07/16 Marisela Chaidez APRN, DINING MANAGER Nurse Practitioner Advanced Practice Nurse 01/07/16 Johnathan Pugh MD [address] [place] [address] Obstetrics & Gynecology 08/13/19
--- OUTSIDE RECORDS SUMMARY | 2024-07-18 14:33 | XMS_ITS | Referral Summary ---
Author Organization [facility] Address [address] [place] [address] Care Team Providers Care Deep Tissue Massage Therapist Name Role Phone Andrea Addison MD Unavailable Unavailab le Source Comments [facility] Affiliates and Associated Physician Practices is amultiple site organization consisting of ambulatory clinics and hospital sitesin [place], [place], [place] and [place]. This disclosure is being madepursuant to the Care Everywhere program and may not contain all information available regarding this patient. Last updated 18.[facility] [employer] Social History Tobacco Use Types Packs/Day Years Used Date Smoking Tobacco: Never Assessed Sex and Gender Information Value Date Recorded Sex Assigned at Not on file Gender Identity Not on file Sexual Orientation Not on file Plan of Treatment Not on file Care Teams Deep Tissue Massage Therapist Relationship Specialty Start Date End Date Andrea Addison MD Way Inspector Obstetrics and Gynecology 12/22/16
--- OUTSIDE RECORDS SUMMARY | 2024-07-18 14:33 | XMS_ITS | Patient Health Summary ---
Author Organization [facility] [employer] Address [address] [place] [address] Care Team Providers Care Director Rehabilitation Program Name Role Phone Andrea Addison MD Unavailable Unavailab le Note from [facility] [place],non-owned Affiliates and Associated Physician Practices is amultiple site organization consisting of ambulatory clinics and hospital sitesin [place], [place], [place] and [place]. This disclosure is being madepursuant to the Care Everywhere program and may not contain all information available regarding this patient. Last updated 18.[facility] [employer] Social History Tobacco Use Types Packs/Day Years [...] Lyn Rosas MD - 12/24/[address] [place] [address] Fax Echocardiogram Report Pat.Name: CHELSIE CONSTANTINO Pat.ID: [id number] St.Date: 12/24/2016 Exam Time: 9:25:00 AM Study Type: Echo Age: 1 1985,31Y Sex: FEMALE Sonogrphr: Mahogany Madrigal RDCS Pat. Stat.:Outpatient CPT - 4: 13554, [id number], [id number], [id number] Reason for Study:Hx of arrhythmia History / Clinical: arrhythmia Procedures: 2D Complete, Doppler Complete, Color Flow Visit ID: [id number] SUMMARY: Study Data: GA: 36w4d weeks. DEANN: [...] MD Lyn Rosas MD ECHO ORDERABLE S [facility] [address] [place] [address] Care Teams Director Rehabilitation Program Relationship Specialty Start Date End Date Andrea Addison MD Dance Critic Obstetrics and Gynecology 12/22/16
--- OUTSIDE RECORDS SUMMARY | 2024-07-18 14:34 | XMS_ITS | Clinical Summary ---
Author Organization [facility] Address [address] [place] [address] Care Team Providers Care Ferry Boat Captain Name Role Phone Gwen Calero Primary Care [...] (11/17/2016): Resolved 10-12-16. Cervical length 3.0 cm Surgical History Surgery Date Site/Laterality Comments OTHER SURGICAL HISTORY 06/06/2003 - 06/05/2004 : 6 hr labor OTHER SURGICAL HISTORY 06/06/2006 - 06/05/2007 : 12 hr labor OTHER SURGICAL HISTORY hole patched on ear drum LASIK LASIK VAGINAL DELIVERY 01/11/2017 Medical History Medical History [...] on file Legal Sex Female 3:43 AM ARRESTING GEAR OPERATOR Gender Identity Not on file Sexual [...] 5 oz) F Vag-S pont Epidura l Rocíogracie g AndiLy nn Last Filed Vital Signs Vital Sign Reading Time Taken Comments Blood Pressure 127/85 03/27/2024 8:26 AM CDT Pulse 64 03/27/2024 8:26 AM CDT Temperature 36.6 C (97.9 F) 07/13/2023 1:50 PM ARRESTING GEAR OPERATOR Respiratory Rate 16 07/13/2023 4:59 PM ARRESTING GEAR OPERATOR Oxygen Saturation 98% 03/27/2024 8:26 AM CDT Inhaled Oxygen Concentration - - Weight 92.1 kg (203 lb 1.6 oz) 03/27/2024 8:26 A M CDT Height 160 cm (5' 3 ) 03/27/2024 8:26 AM CDT Body Mass Index 35.98 03/27/2024 8:26 AM CDT Plan of Treatment Upcoming Encounters Date Type Department Care Team (Latest Contact Info) Description 07/25/2024 12:30 PM ARRESTING GEAR OPERATOR Hospital Encounter [address] [address]Yves [place] MD [address] [place] [address] [place] [address] 07/25/2024 12:30 PM ARRESTING GEAR OPERATOR - 07/25/2024 1:30 PM ARRESTING GEAR OPERATOR Surgery [address] [address]Yves [place] MD [address] [place] [address] ESOPHAGOGASTRODUODENOSCOPY Scheduled Procedures Name Priority Associated Diagnoses Date/Ti me ESOPHAGOGASTRODUODENOSCOPY Epigastric pain Diarrhea, unspecified type 07/25/2024 12:30 PM ARRESTING GEAR OPERATOR COLONOSCOPY Epigastric pain Diarrhea, unspecified type 07/25/2024 12:30 PM ARRESTING GEAR OPERATOR Health Maintenance Due Date Last Done Comments Varicella Vaccines (1 of 2 - 13+ 2-dose series) 1998 Hepatitis B Screening 2003 Depression Screening 08/30/2018 08/30/2017 Regular Well Visit/Exam 18-64 08/30/2018 08/30/2017 Cervical Cancer Screening 06/02/20192017, 08/30/2017, 02/25/2017 Influenza Vaccine (#1) 2024 , 05/29/2020, 03/24/2018 DTaP/Tdap/Td Vaccine (2 - Td [...] HEPATITIS C AB Routine 06/16/2016 11:15 AM ARRESTING GEAR OPERATOR from Last 3 Months or Most Recently Relevant to Health Maintenance Results * Pap IG, HPV-hr (06/02/2018) Endocervical 06/02/2018 us Radha Sun NP LAB PATHOLOGY ORDERABLES Final Result EXTERNAL LAB * Serum Hepatitis C ab (06/16/2016 11:15 AM ARRESTING GEAR OPERATOR) HCV ab Negative Negative CDR HISTOR ICAL RESULTS Serum 06/16/2016 11:1 5 AM ARRESTING GEAR OPERATOR us Andrea Addison MD LAB BLOOD ORDERABLES Final Result CDR HISTORICAL RESULTS from Last 3 Months or Most Recently Relevant to Health Maintenance Insurance [facility] Care Teams Ferry Boat Captain Relationship Specialty Start Date End Date Gwen Calero PA PCP - General Neurosurgery 06/03/22
--- OUTSIDE RECORDS SUMMARY | 2024-07-18 14:34 | XMS_ITS | Encounter Summary ---
Author Organization [facility] Address [address] [place] [address] Phone Care Team Providers Care Radio Producer Name Role Phone Adam Alejo DO Unavailable [phone] Johnna Valente CLEAN UP HELPER BANQUET, VACCINATOR Unavailable [phone] Marisela Chaidez CLEAN UP HELPER BANQUET, VACCINATOR Unavailable Johnathan Pugh MD Unavailable [phone] Gwen Calero PAC Primary Care Pro vider Reason for Visit * Reason Comments Medication Refill Encounter Details Date Type Department Care Team (Late st Contact Info) Description 05/22/2023 Refill [facility] - Internal Medicine - [place] [address] [place] [id number] Gwen Calero, PAC [address] [address] Medication Refill Social History Tobacco Use Types [...] med Needs OV for beginning of Jun ADJUSTER * Telephone Encounter - Radha Johnson RN [...] [place] 06/18/22 Office Visit Gwen Calero PAC [facility] Showing recent visits within past 365 days and meeting all other requirements Future Appointments No visits were found meeting these conditions. Showing future appointments within next 90 days and meeting all other requirements ADJUSTER documented in this encounter Plan of Treatment Upcoming Encounters Date Type Department Care Team (Late st Contact Info) Description 08/13/2024 9:00 AM CDT Office Visit [facility] - Internal Medicine [facility] [address] [place] [address] Gwen Calero PAC [address] [place] [address] documented as of this encounter Goals Goal [...] change Department associated with goal: [facility] Steps to [...] documented as of this encounter Care Teams Radio Producer Relationship Specialty Start Date End Date Gwen Calero PAC [address] [place] [address] PCP - General Physician Plumber Supervisor 06/12/21 Adam Alejo DO Gastroenterology 01/07/16 Johnna Valente, CLEAN UP HELPER BANQUET, VACCINATOR Nurse Practitioner Advanced Practice Nurse 01/07/16 Marisela Chaidez, CLEAN UP HELPER BANQUET, VACCINATOR Nurse Practitioner Advanced Practice Nurse 01/07/16 Jonhathan Pugh MD [address] [place] [address] Obstetrics & Gynecology 08/13/19 documented as of this encounter
--- OUTSIDE RECORDS SUMMARY | 2024-07-18 14:34 | XMS_ITS | Encounter Summary ---
Author Organization [facility] Address [address] [place] [address] Phone Care Team Providers Care Animal Damage Control Agent Name Role Phone Carmen Brown MD Primary Care Provider [phone] Adam Alejo DO Unavailable [phone] Johnna Valente APRN, LADLE CAR OPERATOR Unavailable Marisela Chaidez APRN, LADLE CAR OPERATOR Unavailable Jonhathan Pugh MD Unavailable [phone] Gwen Calero PAC Primary Care Pro vider Reason for Visit * Reason Comments Medication Refill Encounter Details Date Type Department Care Team (Late st Contact Info) Description 12/18/2020 Refill [facility] - Primary Care - [place] [address] [place] [address] Viviane De La Rosa, WOOD FLOOR LAYER, LADLE CAR OPERATOR [address] [place] [address] Medication Refill Social History Tobacco [...] Visit [facility] - Internal Medicine [facility] [address] [place] [id number] Gwen Calero, CECY [address] [place] [address] documented as of this encounter Visit Diagnoses Diagnosis Mild episode of recurrent major depressive disorder (HCC) Anxiety Anxiety state, unspecified documented in this encounter Additional Health Concerns Assessment Noted Time PHQ-9 Depression Total Score: 15 021 11:00 AM CDT documented as of this encounter Care Teams Animal Damage Control Agent Relationship Specialty Start Date End Date Carmen Brown MD PCP - General Family Medicine 10/28/15 06/11/21 Gwen Calero, PAC [address] [place] [address] PCP - General Physician Lap Regulator 06/12/21 Adam Alejo DO Gastroenterology 01/07/16 Johnna Valente WOOD FLOOR LAYER, LADLE CAR OPERATOR Nurse Practitioner Advanced Practice Nurse 01/07/16 Marisela Chaidez, WOOD FLOOR LAYER, LADLE CAR OPERATOR Nurse Practitioner Advanced Practice Nurse 01/07/16 Johnathan Pugh MD [address] [place] [address] Obstetrics & Gynecology 08/13/19 documented as of this encounter
--- OUTSIDE RECORDS SUMMARY | 2024-07-18 14:34 | XMS_ITS | Encounter Summary ---
Author Organization [facility] Address [address] [place] [address] Phone Care Team Providers Care Radio Electrician Name Role Phone Adam Alejo DO Unavailable [phone] Johnna Valente WATER PIPE INSTALLER, PRE SALES SYSTEMS ENGINEER Unavailable [phone] Marisela Chaidez WATER PIPE INSTALLER, PRE SALES SYSTEMS ENGINEER Unavailable Johnathan Pugh MD Unavailable [phone] Gwen Calero PAC Primary Care Pro vider Reason for Visit * Reason Comments Medication Refill Encounter Details Date Type Department Care Team (Late st Contact Info) Description 10/07/2022 Refill [facility] - Internal Medicine - [place] [address] [place] [phone] Gwen Calero, PAC [address] [facility] [place] [address] Medication Refill Social History Tobacco Use Types [...] Dept 09/23/22 Office Visit Gwen Calero PAC [facility] [place] 06/18/22 Office Visit Gwen Calero PAC [facility] [place] 03/26/22 Office Visit Gwen Calero PAC [facility] [place] 01/27/22 Office Visit Gwen Calero PAC [facility] [place] Showing recent visits within past 365 days and meeting all other requirements Future Appointments Date Type Provider Dept 10/29/22 Appointment Gwen Calero PAC [facility] [place] Showing future appointments within next 90 days and meeting all other requirements documented in this encounter Plan of Treatment Upcoming Encounters Date Type Department Care Team (Late st Contact Info) Description 08/13/2024 9:00 AM CDT Office Visit [facility] - Internal Medicine - [place] [address] [place] [phone] Gwen Calero, PAC [address] [place] [address] documented as of this encounter Goals Goal [...] Ready to change Department associated with goal: [facility] Steps [...] as of this encounter Care Teams Radio Electrician Relationship Specialty Start Date End Date Gwen Calero, PAC [address] [place] [address] PCP - General Physician Field Cashier 06/12/21 Adam Alejo DO Gastroenterology 01/07/16 Johnna Valente, WATER PIPE INSTALLER, PRE SALES SYSTEMS ENGINEER Nurse Practitioner Advanced Practice Nurse 01/07/16 Marisela Chaidez, WATER PIPE INSTALLER, PRE SALES SYSTEMS ENGINEER Nurse Practitioner Advanced Practice Nurse 01/07/16 Johnathan Pugh MD [address] [place] [address] Obstetrics & Gynecology 08/13/19 documented as of this encounter
--- OUTSIDE RECORDS SUMMARY | 2024-07-18 14:34 | XMS_ITS | Data Portability ---
Author Organization [facility] [place] Address [address] [place] [address] [place] [address] Assessment No assessment recorded. Plan of Treatment Reminders Order Date Submit Date Provider Last Modified By Organization Details Last Modified Time Details Appointments None recorded. Lab 17-hydroxyp rogesterone , QN, serum 2022 023 [facility] (Lab), [address], [place], [address], 3 19:27:48 unlisted lab - [facility] swab plus, MICH 2023 024 [facility] (Lab), [address], [place], [address], 4 14:30:34 Referral None recorded. Procedures None recorded. Surgeries hysteroscop y, surgical, with biopsy of endometrium and/or polypectomy (SURG) 2023 [email or web address] [place] [address], [facility] [address], [place], [address], 4 17:00:16 Imaging US, pelvis, complete 2022 023 [facility], [facility] [address], [place], [address], 4 05:01:45 US, pelvis 2023 024 [email or web address] [place], [facility] [address], [place], [address], 4 21:38:40 US, transvagina l 2023 024 [email or web address] [facility] [address], [place], [address], 4 21:38:40 Medication Orders metronidazo le 500 mg tablet 2023 024 BRYAN [id number], [address], [place], [place], [id number], 4 09:47:48 Patient TargetsNo targets recorded. Patient InstructionsNo instructions recorded. Reason for Referral None Reported. Results Created Date Observation Date Name Description Value Unit Range Abnormal Flag Note LastModifiedBy Organization Detail LastModifiedTime 03/30/2003/30/2023 CT/GC AND TRICH OMONA S VAGIN CALEB (RRNA ), URINE chlamydia trachomatis, PCR Negati ve negati ve Not Available [facility] (Lab) [address], [place], [address], 03/31/2023 16:06:42 03/30/2003/30/2023 CT/GC AND TRICH OMONA S VAGIN CALEB (RRNA ), URINE neisseria gonorrhoeae, PCR Negati ve negati ve Not Available [facility] (Lab) [address], [place], [address], 03/31/2023 16:06:42 03/30/2003/30/2023 CT/GC AND TRICH OMONA S VAGIN CALEB (RRNA ), URINE trichomonas vaginalis ribosomal RNA (rrna) Negati ve negati ve Not Available [facility] (Lab) [address], [place], [address], 03/31/2023 16:06:42 03/30/2003/30/2023 CBC W/DIF F WBC 7.9 10'3/ uL 3.6-10 .2 Not Available [facility] (Lab) [address], [place], [address], 04/05/2023 19:27:45 03/30/2003/30/2023 CBC W/DIF F RBC 4.83 10'6/ uL (based on docume nted legal sex) 4.10-5 .30 Not Available [facility] (Lab) [address], [place], [address], 04/05/2023 19:27:45 03/30/2003/30/2023 CBC W/DIF F HGB 15.4 g/dL (based on docume nted legal sex) 11.9-1 5.8 Not Available [facility] (Lab) [address], [place], [address], 04/05/2023 19:27:45 03/30/2003/30/2023 CBC W/DIF F HCT 45.9 % (based on docume nted legal sex) 37.4-4 8.3 Not Available [facility] (Lab) [address], [place], [address], 04/05/2023 19:27:45 03/30/2003/30/2023 CBC W/DIF F MCV 95.0 fL 82.0-9 9.0 Not Available [facility] (Lab) [address], [place], [address], 04/05/2023 19:27:45 03/30/2003/30/2023 CBC W/DIF F MCH 31.9 pg 27.0-3 3.0 Not Available [facility] (Lab) [address], [place], [address], 04/05/2023 19:27:45 03/30/2003/30/2023 CBC W/DIF F MCHC 33.6 g/dL 32.0-3 6.0 Not Available [facility] (Lab) [address], [place], [address], 04/05/2023 19:27:45 03/30/20 23 03/30/2023 CBC W/DIF F RDW 12.0 % 11.0-1 5.0 Not Available [facility] (Lab) [address], [place], [address], 04/05/2023 19:27:45 03/30/20 23 03/30/2023 CBC W/DIF F plt 252 10'3/ uL 150-45 0 Not Available [facility] (Lab) [address], [place], [address], 04/05/2023 19:27:45 03/30/20 23 03/30/2023 CBC W/DIF F MPV 9.7 fL 9.8-12 .7 low Not Available [facility] (Lab) [address], [place], [address], 04/05/2023 19:27:45 03/30/20 23 03/30/2023 CBC W/DIF F NRBC's 0.0 % 0 Not Available [facility] (Lab) [address], [place], [address], 04/05/2023 19:27:45 03/30/20 23 03/30/2023 CBC W/DIF F absolute NRBCs 0.0 10'3/ uL 0 Not Available [facility] (Lab) [address], [place], [address], 04/05/2023 19:27:45 03/30/20 23 03/30/2023 CBC W/DIF F neutrophils 62.4 % 37.0-7 2.0 Not Available [facility] (Lab) [address], [place], [address], 04/05/2023 19:27:45 03/30/20 23 03/30/2023 CBC W/DIF F lymphocytes 25.1 % 16.0-4 8.0 Not Available [facility] (Lab) [address], [place], [address], 04/05/2023 19:27:45 03/30/20 23 03/30/2023 CBC W/DIF F monocytes 7.5 % 4.0-14 .0 Not Available [facility] (Lab) [address], [place], [address], 04/05/2023 19:27:45 03/30/20 23 03/30/2023 CBC W/DIF F eosinophils 4.3 % 0.0-9. 0 Not Available [facility] (Lab) [address], [place], [address], 04/05/2023 19:27:45 03/30/20 23 03/30/2023 CBC W/DIF F basophils 0.4 % 0.0-2. 0 Not Available [facility] (Lab) [address], [place], [address], 04/05/2023 19:27:45 03/30/20 23 03/30/2023 CBC W/DIF F immature granulocytes 0.3 % no define d refere nce range Not Available [facility] (Lab) [address], [place], [address], 04/05/2023 19:27:45 03/30/20 23 03/30/2023 CBC W/DIF F absolute neutrophils 4.9 10'3/ uL 1.1-6. 0 Not Available [facility] (Lab) [address], [place], [address], 04/05/2023 19:27:45 03/30/20 23 03/30/2023 CBC W/DIF F absolute lymphocytes 2.0 10'3/ uL 0.7-3. 4 Not Available [facility] (Lab) [address], [place], [address], 04/05/2023 19:27:45 03/30/20 23 03/30/2023 CBC W/DIF F absolute monocytes 0.6 10'3/ uL 0.3-1. 0 Not Available [facility] (Lab) [address], [place], [address], 04/05/2023 19:27:45 03/30/20 23 03/30/2023 CBC W/DIF F absolute eosinophils 0.3 10'3/ uL 0.0-0. 6 Not Available [facility] (Lab) [address], [place], [address], 04/05/2023 19:27:45 03/30/20 23 03/30/2023 CBC W/DIF F absolute basophils 0.0 10'3/ uL 0.0-0. 1 Not Available [facility] (Lab) [address], [place], [address], 04/05/2023 19:27:45 03/30/20 23 03/30/2023 CBC W/DIF [...] resul ts are expec breana. Not Available [facility] (Lab) [address], [place], [address], 04/05/2023 19:27:45 03/30/2003/30/2023 LIPID PANEL ,AMA (LDL- CALC) total cholesterol 141 mg/dL 0-199 Not Available [facility] (Lab) [address], [place], [address], 04/05/2023 19:27:46 03/30/2003/30/2023 LIPID PANEL ,AMA (LDL- CALC) triglyceride s 132 mg/dL 0.00-1 50.00 NCEP Refer ence Value s for Trigl yceri cristo: Edelmira l: <150 mg/dL Borde rline High: 150 - 199 mg/dL High: 200 - 499 mg/dL Very High: >/= 500 mg/dL Not Available [facility] (Lab) [address], [place], [address], 04/05/2023 19:27:46 03/30/2003/30/2023 LIPID PANEL ,AMA (LDL- CALC) HDL cholesterol 29 mg/dL >40 low Not Available [facility] (Lab) [address], [place], [address], 04/05/2023 19:27:46 03/30/2003/30/2023 LIPID PANEL ,AMA (LDL- [...] mg/dL , HDL <40 mg/dL Not Available [facility] (Lab) [address], [place], [address], 04/05/2023 19:27:46 03/30/2003/30/2023 LIPID PANEL ,AMA (LDL- CALC) non-HDL cholesterol 112 mg/dL no refere nce range A reaso nable goal for non-H DL melissa stero l is one that is 30 mg/dL highe r than the LDL melissa stero l goal. Not Available [facility] (Lab) [address], [place], [address], 04/05/2023 19:27:46 03/30/2003/30/2023 LIPID PANEL ,AMA (LDL- CALC) chol/HDL ratio 4.9 . 0.0-5. 0 On September 28, 2022, [facility] labor kamila srinivasan ed the equat ion [...] n. 2017Jun 07;137 (1):1 0-19. Not Available [facility] (Lab) [address], [place], [address], 04/05/2023 19:27:46 03/30/20 23 03/30/2023 CMP(C OMPRE HENSI VE METAB OLIC PANEL ) sodium 137 mmol/ L 133-14 6 Not Available [facility] (Lab) [address], [place], [address], 04/05/2023 19:27:46 03/30/20 23 03/30/2023 CMP(C OMPRE HENSI VE METAB OLIC PANEL ) potassium 4.1 mmol/ L 3.5-5. 1 Not Available [facility] (Lab) [address], [place], [address], 04/05/2023 19:27:46 03/30/20 23 03/30/2023 CMP(C OMPRE HENSI VE METAB OLIC PANEL ) chloride 105 mmol/ L 98-107 Not Available [facility] (Lab) [address], [place], [address], 04/05/2023 19:27:46 03/30/20 23 03/30/2023 CMP(C OMPRE HENSI VE METAB OLIC PANEL ) carbon dioxide 22 mmol/ L 21-31 Not Available [facility] (Lab) [address], [place], [address], 04/05/2023 19:27:46 03/30/20 23 03/30/2023 CMP(C OMPRE HENSI VE METAB OLIC PANEL ) anion gap 10 mmol/ L 4-13 Not Available [facility] (Lab) [address], [place], [address], 04/05/2023 19:27:46 03/30/20 23 03/30/2023 CMP(C OMPRE HENSI VE METAB OLIC PANEL ) blood urea nitrogen 14 mg/dL 7-25 Not Available [facility] (Lab) [address], [place], [address], 04/05/2023 19:27:46 03/30/20 23 03/30/2023 CMP(C OMPRE HENSI VE METAB OLIC PANEL ) creatinine 0.97 mg/dL 0.60-1 .30 Not Available [facility] (Lab) [address], [place], [address], 04/05/2023 19:27:46 03/30/20 23 03/30/2023 CMP(C OMPRE HENSI VE METAB OLIC PANEL ) egfrcr (CKD-epi 2020) 77 mL/mi n/1.7 3_m2 >=60 Not Available [facility] (Lab) [address], [place], [address], 04/05/2023 19:27:46 03/30/20 23 03/30/2023 CMP(C OMPRE HENSI VE METAB OLIC PANEL ) calcium 9.5 mg/dL 8.3-10 .5 Not Available [facility] (Lab) [address], [place], [address], 04/05/2023 19:27:46 03/30/20 23 03/30/2023 CMP(C OMPRE HENSI VE METAB OLIC PANEL ) glucose 93 mg/dL 70-100 Not Available [facility] (Lab) [address], [place], [address], 04/05/2023 19:27:46 03/30/20 23 03/30/2023 CMP(C OMPRE HENSI VE METAB OLIC PANEL ) protein, total 6.9 g/dL 6.4-8. 3 Not Available [facility] (Lab) [address], [place], [address], 04/05/2023 19:27:46 03/30/20 23 03/30/2023 CMP(C OMPRE HENSI VE METAB OLIC PANEL ) albumin 4.4 g/dL 3.5-5. 0 Not Available [facility] (Lab) [address] [place], [address], 04/05/2023 19:27:46 03/30/20 23 03/30/2023 CMP(C OMPRE HENSI VE METAB OLIC PANEL ) ALT 15 units /L 9-43 Not Available [facility] (Lab) [address], [place], [address], 04/05/2023 19:27:46 03/30/20 23 03/30/2023 CMP(C OMPRE HENSI VE METAB OLIC PANEL ) alkaline phosphatase 54 units /L 34-104 Not Available [facility] (Lab) [address], [place], [address], 04/05/2023 19:27:46 03/30/2003/30/2023 CMP(C OMPRE HENSI VE METAB OLIC PANEL ) AST 16 units /L 13-39 Not Available [facility] (Lab) [address], [place], [address], 04/05/2023 19:27:46 03/30/2003/30/2023 CMP(C OMPRE HENSI VE METAB OLIC PANEL ) bilirubin, total 0.6 mg/dL 0.2-1. 2 Not Available [facility] (Lab) [address], [place], [address], 04/05/2023 19:27:46 03/30/2003/30/2023 MIRI TIN / IRON / TRANS MIRI N / TIBC iron 104 ug/dL 40-170 Not Available [facility] (Lab) [address], [place], [address], 04/05/2023 19:27:47 03/30/2003/30/2023 MIRI TIN / IRON / TRANS MIRI N / TIBC transferrin 317 mg/dL 200-36 0 Not Available [facility] (Lab) [address], [place], [address], 04/05/2023 19:27:47 03/30/2003/30/2023 MIRI TIN / IRON / TRANS MIRI N / TIBC ferritin 58.7 NG/mL 8.0-25 2.0 Not Available [facility] (Lab) [address], [place], [address], 04/05/2023 19:27:47 03/30/2003/30/2023 MIRI TIN / IRON / TRANS MIRI N / TIBC TIBC 444 ug/dL 250-45 0 Not Available [facility] (Lab) [address], [place], [address], 04/05/2023 19:27:47 03/30/2003/30/2023 MIRI TIN / IRON / TRANS MIRI N / TIBC iron saturation 23 % 20-[address] [facility] (Lab) [address], [place], [address], 04/05/2023 19:27:47 03/30/2003/30/2023 TSH, REFLE X FREE T4 TSH 1.90 uIU/m L 0.30-5 .33 Not Available [facility] (Lab) [address], [place], [address], 04/05/2023 19:27:47 03/30/2003/30/2023 VITAM IN B12 / FOLAT E PANEL vitamin B12 259 pg/mL 180-91 4 Edelmira l Range : 180-9 14 pg/mL . Indet ermin ate Range : 145-1 80 pg/mL . Defic ient Range : <=145 pg/mL . Not Available [facility] (Lab) [address], [place], [address], 04/05/2023 19:27:47 03/30/2003/30/2023 VITAM IN B12 / FOLAT E PANEL folate, serum 3.7 NG/mL 6.0-20 .0 low Not Available [facility] (Lab) [address], [place], [address], 04/05/2023 19:27:47 03/30/2003/30/2023 VITAM IN D, 25-OH (TOTA L D2/D3 ) vitamin D, 25-hydroxy, total 26.8 NG/mL 30.0-1 00.0 low Sugge stive of Defic iency : <20 ng/mL Sugge stive of Insuf ficie ncy: 20-29 ng/mL Sugge stive of Suffi cienc y: 30-10 0 ng/mL Sugge stive of Toxic ity: >150 ng/mL Not Available [facility] (Lab) [address], [place], [address], 04/05/2023 19:27:48 03/30/2003/30/2023 HEMOG LOBIN A1C hemoglobin [...] >8.0% Actio n sugge sted Not Available [facility] (Lab) [address], [place], [address], 04/05/2023 19:27:48 03/30/2003/30/2023 17-OH PROGE STERO NE [...] ostic s/Jm christina SJC-S Catarina Geronimore ss: [address] [place] [address] Direc tor: Hawa okeefe MD,Ph D,IMER Not Available [facility] (Lab) [address], [place], [address], 04/05/2023 19:27:48 03/30/2003/30/2023 urina lysis , dipst ick pH 5 Not Available [place] [address], [place], [address], 03/30/2023 09:57:33 03/30/2003/30/2023 urina lysis , dipst ick Specific Marana 1.020 Not Available [facility] [address], [place], [address], 03/30/2023 09:57:33 10/27/19 24 10/27/2023 CT/GC AND TRICH OMONA S VAGIN CALEB (RRNA ), SWAB chlamydia trachomatis, PCR Negati ve negati ve Not Available [facility] (Lab) [address], [place], [address], 10/28/2023 15:25:08 10/27/19 24 10/27/2023 CT/GC AND TRICH OMONA S VAGIN CALEB (RRNA ), SWAB neisseria gonorrhoeae, PCR Negati ve negati ve Not Available [facility] (Lab) [address], [place], [address], 10/28/2023 15:25:08 10/27/19 24 10/27/2023 CT/GC AND TRICH OMONA S VAGIN CALEB (RRNA ), SWAB trichomonas vaginalis ribosomal RNA (rrna) Negati ve negati ve Not Available [facility] (Lab) [address], [place], [address], 10/28/2023 15:25:08 04/17/20 24 04/17/2024 WOMEN 'S HEALT H SWAB PLUS, MICH bacterial vaginosis (bv), tma Positi ve negati ve abnormal Not Available [facility] (Lab) [address], [place], [address], 04/18/2024 14:30:34 04/17/20 24 04/17/2024 WOMEN 'S HEALT H SWAB PLUS, MICH renee species, tma Negati ve negati ve Not Available [facility] (Lab) [address] [place], [address], 04/18/2024 14:30:34 04/17/20 24 04/17/2024 WOMEN 'S HEALT H SWAB PLUS, MICH renee glabrata, tma Negati ve negati ve Not Available [facility] (Lab) [address] [place], [address], 04/18/2024 14:30:34 04/17/20 24 04/17/2024 [facility] trichomonas vaginalis, tma Negati ve negati ve Not Available [facility] (Lab) [address] [place], [address], 04/18/2024 14:30:34 04/17/20 24 04/17/2024 [facility] MICH chlamydia trachomatis, PCR Negati ve negati ve Not Available [facility] (Lab) [address] [place], [address], 04/18/2024 14:30:34 04/17/20 24 04/17/2024 WOMEN 'S [...] ded in this panel . Not Available [facility] (Lab) [address], [place], [address], 04/18/2024 14:30:34 11/08/19 24 11/08/2023 US, pelvi s No observ ation record ed. [email or web address] [place] [address], [place], [address], 11/08/2023 12:55:46 11/08/19 24 11/08/2023 US, trans vagin al No observ ation record ed. [email or web address] [place] [address], [place], [address], 11/08/2023 12:55:36 11/08/19 24 11/08/2023 US, pelvi s No observ ation record ed. [email or web address], [facility], [place], [address], 11/16/2023 11:01:25 Result Notes None recorded. Procedures Surgical History Date Name Laterality Status Provider Name and Address Organization Details Recorded Time 11/17/19 Endometrial Ablation completed Mercedes Dumont [facility] 10/27/2023 10:15:40 11/17/19 LOOP ELECTRODE EXCISION PROCEDURE, SURGICAL (LEEP) (SURG) completed Rose Burks [facility] 11/17/2022 10:10:43 10/20/19 Colposcopy completed Morenita Zuleta [facility] [address], [place], [address], [facility] 10/21/2022 09:41:59 10/20/19 23 Colposcopy completed Keke Meadows [facility] 11/08/2022 11:33:52 09/21/19 23 Date of Last Pap Smear completed Mercedes Dumont [facility] 10/19/2022 17:23:42 08/22/19 22 Colposcopy completed Morenita Zuleta [facility] [address], [place], [address], [facility] 08/21/2021 14:39:30 08/22/19 22 Colposcopy completed Blanca Cerrato [facility] 09/18/2022 10:11:24 08/22/19 22 Colposcopy completed Annabelle Gomez [facility] 08/21/2021 15:11:41 Imaging Results Imaging Date Name Status LastModified by Organization Details LastModified Time 11/08/2023 US, pelvis completed [email or web address] [place] [address], [place], [address], 11/08/2023 12:55:46 11/08/2023 US, transvaginal completed [email or web address] [place] [address], [place], [address], 11/08/2023 12:55:36 11/08/2023 US, pelvis completed [address], [place], [address], 11/16/2023 11:01:25 Procedure Notes None recorded. Medical [...] Updated DateTime 03/30/2023 161.93 cm 32.9 kg/m2 37717.55 g 135 mm[Hg] 83 mm[Hg] Keke Dori [facility] 3 09:34:04 Date Recorded Body height Body mass index (BMI) Body weight Systolic blood pressure Diastolic blood pressure Provider Name and Address Organization Details Last Updated DateTime 10/27/2023 161.93 cm 34.6 kg/m2 45607.47 g 135 mm[Hg] 91 mm[Hg] Mercedes Dumont [facility] 4 10:09:08 Date Recorded Body height Body mass index (BMI) Body weight Systolic blood pressure Diastolic blood pressure Provider Name and Address Organization Details Last Updated DateTime 12/02/2023 161.93 cm 34.3 kg/m2 01421.73 g 136 mm[Hg] 88 mm[Hg] Audrey Jesus Manuel [facility] 4 09:34:39 Date Recorded Body height Body mass index (BMI) Body weight Systolic blood pressure Diastolic blood pressure Provider Name and Address Organization Details Last Updated DateTime 04/17/2024 161.93 cm 34.9 kg/m2 81026.66 g 131 mm[Hg] 93 mm[Hg] Mercedes Tim [facility] 4 09:46:12 Social History Question Answer Notes LastModified by Organizat ion Details LastModified Time Tobacco Smoking Status Never Smoker Annabelle Jason sheikh, [facility] 07/31/2021 14:19:56 What Is Your Level [...] Anxious, Or Unable To Sleep At Night)? [id number] Information not available 07/31/2021 Do You Use [...] 14:19:29 Medical History Condition Response Other Y Asthma Y Fibromyalgia Y Gynecological History Statement/Question Response Abnormal Pap [...] Diagnosis/Indication Diagnosis SNOMED-CT Code Diagnosis ICD10 Code Diagnosis Note [id number] Morenita Zuleta [facility] [address] [address] 07/31/2021 13:59:35 07/31/2021 14:59:15 Gynecologic examination [id number] Z01.419 Take Calcium with Vitamin D 1200mg daily if not receiving in daily diet. It is strongly advised to have an annual flu shot and up can obtain at most pharmacies . If you have not had a TDap shot in the last 10 years you should obtain one as well. Discussed with patient & provided with informatio n regarding Gardisil vaccine to prevent the 4 strains for HPV that cause cervical cancer if under age 26. Encourage safe sexual practices, to use condoms and limit partners if not already in a monogamous relationsh ip. Do monthly self breast exams. Have mammogram yearly or every other year depending on family history. BRCA testing is now available for patients with strong genetic history of female cancer. If interested contact the office. Engage in daily exercise of low impact aerobic exercise 45-60 minutes 4-5 times weekly. Avoid tobacco and illicit drugs as well as using moderation with alcohol intake less than 1-2 8 oz beverages daily. This lifestyle behavior pattern will lead to less health conditions and longer life span. If BMI greater than 25 weight watchers or dietary consult advised. Patient received above instructio ns, and questions have been answered. If you have any questions please call or respond to this email. Patient was made aware of the patient portal and may obtain a paper copy of today's plan if desired. Pap/hpv sentSTD sentGeneti c screen discussedN O isssues or questions Contracept ion care management [id number] Z30.9 Happy on Nuvaring & wishes to continue. [id number] Morenita Zuleta [facility] [address],[facility] [place] [address] 08/21/2021 13:54:19 08/21/2021 14:51:06 Atypical squamous cells of undetermined significance on cervical Papanicolaou smear [id number] R87.610 ASCUS cannot r/o HGSIL See procedure notes.Post -procedure instructio ns reviewed with understand ing verbalized .Will contact with results & next steps in plan of care. [id number] Morenita Zuleta [facility] [address],[facility] [address] 09/18/2022 10:15:23 09/20/2022 15:27:41 Gynecologic examination [id number] Z11.51 Z11.3 Z11.8 Take Calcium with Vitamin D 1200mg daily if not receiving in daily diet. It is strongly advised to have an annual flu shot and up can obtain at most pharmacies . If you have not had a TDap shot in the last 10 years you should obtain one as well. Discussed with patient & provided with informatio n regarding Gardisil vaccine to prevent the 4 strains for HPV that cause cervical cancer if under age 26. Encourage safe sexual practices, to use condoms and limit partners if not already in a monogamous relationsh ip. Do monthly self breast exams. Have mammogram yearly or every other year depending on family history. BRCA testing is now available for patients with strong genetic history of female cancer. If interested contact the office. Engage in daily exercise of low impact aerobic exercise 45-60 minutes 4-5 times weekly. Avoid tobacco and illicit drugs as well as using moderation with alcohol intake less than 1-2 8 oz beverages daily. This lifestyle behavior pattern will lead to less health conditions and longer life span. If BMI greater than 25 weight watchers or dietary consult advised. Patient received above instructio ns, and questions have been answered. If you have any questions please call or respond to this email. Patient was made aware of the patient portal and may obtain a paper copy of today's plan if desired. Pap/hpv sent STD Screen sent Genetic Screen discussed Colon Screen na Dexa Screen na Routine Labs ordered/PC P Menorrhagia [id number] N9 2.0 Endo ablation consult MDUpdate US orderedUpd ate labs ordered [id number] Nohemi Gomez [place] [address] [address] 09/23/2022 16:27:29 09/23/2022 17:25:42 Menorrhagia [id number] N92.0 [id number] Tomás Luo MD [place] [address] [address] 09/30/2022 17:15:52 10/01/2022 14:56:09 Menorrhagia [id number] N92.0 This patient is a 37-year-ol d female presents for heavy vaginal bleeding. She has longstandi ng very heavy bleeding. Her menses are regular. However, they require double protection . Patient has accidents, getting blood on her bedding and clothing. Is affected work. She changes a pad or tampon every hour. She leaks blood around the pad and tampon. This bleeding has a profound impact on her quality of life and her activities of daily living. Discussed treatment options in detail. She would like female sterilizat ion also. She needs salpingect neil. Talked about the addition of endometria l ablation during the operating room time that was used to perform sterilizat ion. Moved to go forward. She understand s the risk. She she understand s the procedure very well. The patient understand s the procedure. The procedure was described to the patient in great detail. the patient also understand s the risks. The risks were also explained in detail. She understand s that injuries May occur during surgery. She understand s these injuries can result in hospitaliz ation, more surgery, and severe illness. She understand s there is risk of hemorrhage and infection. Spent more than 40 minutes face-to-fa ce. More than 50% was counseling . We made a decision to perform surgery. Female sterilization 608 80148 Z30.2 [id number] [facility] [address] [address] 10/19/2022 17:08:37 10/21/2022 16:22:57 Screening procedure 37758117 Z13.9 Human lashaun llomavirus deoxyribonucleic acid detected, high risk on cervical specimen 545109865 R87.810 (2022) PAP/HPV (ASCUS/+HR HPV) See procedure notes.Post -procedure instructio ns reviewed with understand ing verbalized .Will contact with results & next steps in plan of care. Counseled on Pap/HPV guidelines /Testing/R esults with understand ing verbalized .All questions answered to patient satisfacti on. Booklet & additional resources regarding pap smear/HPV/ Pap results given. https://ww w.cancer.g ov/types/c ervical/un derstandin g-abnormal -hpv-and-p ap-test-re sults/unde rstanding- cervical-c hanges.pdf [id number] Tomás Luo MD [place] [address] [address] 11/08/2022 11:16:29 11/08/2022 12:53:08 Dysplasia of cervix 88806784 N87.9 Female sterilization 608 16813 Z30.2 Menorrhagia 381027229 N9 2.0 this patient is a 37-year-ol d female with menorrhagi a, unwanted fertility cervical dysplasia. We have agreed formally procedure, laparoscop ic salpingect neil and endometria l ablation with hysterosco py. She understand s the risks, benefits And alternativ es. She has completed the informed consent process and is ready to proceed. [id number] Mercedes Tim [place] [address],[place] [address] 11/17/2022 10:13:38 11/17/2022 10:17:53 [id number] Tomás Luo MD [place] [address] [address] 11/24/2022 16:36:06 11/24/2022 17:52:44 Endometrium thickened 411770566 R93.89 Endometritis 15593379 N7 1.0 37-year-ol d female who presents for postop follow-up after LEEP procedure, endometria l ablation, bilateral salpingect neil. She reports foul-smell ing vaginal discharge. She has some feelings of malaise. She also reports vaginal bleeding. She was examined. There was some oozing at the cervix. It was cauterized with silver nitrate. There was foul-smell ing odor. The uterus is tender. There is maybe a endometrit is here. Will we will treat with antibiotic s and have her follow-up in 1 week. [id number] Keena Poon [place] [address] [address] 11/29/2022 15:51:47 11/29/2022 16:36:59 Pain in pelvis 31774381 R10.2 [id number] [facility] [address] [address] 12/02/2022 17:46:21 12/03/2022 16:36:21 Postoperative visit 458201795 Z09 Post-Leep Exam appears healing well approximat ed and crust formed with minimal blood loss and no drainage today.We agreed to applicatio n of silver nitrate in area of TMZ& mons cells on to cover face of cervix.Rev iewed normal vs abnormal issues post-Leep/ Endometria l ablation.R TO x 6mos post-leep pap/hpv.Un derstandin g verbalized . Hx of Fibromyalg iaUsed to take Lyrica but insurance no longer covers it.Feels she usually manages well.We agreed on Meloxicam and prn cyclobenza gail if needed for feeling of spasms in uterus. We discussed that chronic pain conditions can magnify pain levels; so this can take time and patience to work through. She will reach out next week for update on status.She will go to ED if needed.IF, she needs a little more pain relief we did discuss briefly coupling lyrica/Rohith apentin with an NSAID due to Fibromyalg ia Hx--if her new insurance will cover it. She will let us know.Couns eled on purpose of these medication s.She will finish her abx doxycyclin e.Call if suspects yeast infection/ other vaginitis. 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 Time spent in visit is a total of 30 mins with at least 50% of visit consisting of counseling and review of plan of care. Contact de rmatitis caused by urushiol from [facility] maile [id number] L25.5 Topical ointment sent for remaining itchy rash. [id number] Morenita Zuleta , MAYRA-[facility] [address] [address] 03/30/2023 09:18:02 03/30/2023 09:53:52 Malaise and fatigue 290797337 R53.81 Today we will update lab work & complete labs ordered previously which were not done.Will release results once completed. Pain in pelvis 72359688 R10.2 Recurring pelvic pain post-endom etrial ablation from 11/2022.We agreed to update US and compare with previously completed US.Pain manageable but will take nsaid/tyle nol prnWill reach out virtual visit to discuss results. Patient is to contact office or go to nearest ED/Urgent care if fever >/= 100.1, pain, excessive bleeding, unusual drainage or swelling in area of concern; or experienci ng worsening sx's or new onset of concerning sx's. Understand ing verbalized . All questions answered to patient satisfacti on. Time spent in visit is a total of 20 mins with at least 50% of visit consisting of counseling and review of plan of care. Urinary symptoms 1279305 08 R39.9 Send urine to r/o infections . [id number] [facility] [address] [address] 10/27/2023 10:03:32 10/27/2023 10:28:30 Abnormal uterine bleeding [id number] 9100 N93.9 The patient and I disscussed the various causes of abnormal uterine bleeding, including polyps, fibroids, hyperplasi a, atypia, anovulatio n, etc. We reviewed the typical evaluation with labs, pelvic US and possible endometria l biopsy. Briefly discussed the options available for treatment (depending on the results of evaluation ) such as hormonal treatment (OCPs, progestins ), Mirena, endometria l ablation, and surgery. We spent more than 30 minutes face to face. STD sentDeclin ed UPT (Hx of tubal)Will update US and reach out with results. [id number] Keena Poon [place] [address] [address] 11/08/2023 10:56:23 11/08/2023 11:40:34 Pain in pelvis 89201665 R10.2 N93.9 [id number] NATY GASTELUM MD [place] [address],[place] [address] 12/02/2023 09:29:43 12/02/2023 10:16:20 Abnormal uterine bleeding [id number] 9100 N93.9 - bleeding episode 1 year after ablation- pain during and following sex, now constant aching pain- STD negative- pelvic US demonstrat es areas of likely regrown endometriu m- discussed expectant vs medical vs surgical management with hysterosco py and endometria l biopsies- patient desires surgical management with hysterosco py and biopsy; r/b/a discussed- will plan for in office procedure [id number] Mercedes Tim [place] [address] [address] 04/17/2024 09:37:17 04/17/2024 09:53:54 Vaginitis 54761261 N76.0 Health Concerns Section Related Observation LastModified by Organization Detai ls LastModified Time None Recorded Concern Status LastModified by Organization Details LastModified Time None Recorded Advance Directives Directive None Recorded Payers Encounter Date Sequence Insurance Name Policy Number Policy Leyva Covered Member ID Leyva Member ID Guarantor Name 03/30/2023 1 [facility] (MEDICAID HMO) [id number] Shalonda Constantino [id number] Shalonda Tarik Banquete 10/27/2023 1 [facility] (MEDICAID HMO) [id number] Shalonda Constantino [id number] Shalonda A Banquete 11/08/2023 1 [facility] (MEDICAID HMO) [id number] Shalonda Constantino [id number] Shalonda A Banquete 12/02/2023 1 [facility] [place] ([place]ICAID H[place]) [id number] Shalonda Constantino [id number] Shalonda A Banquete 04/17/2024 1 [facility] (MEDICAID HMO) [id number] 0003 Shalonda Constantino [id number] Shalonda Georgesman Notes Date Note Type Note [...] dyspareunia. Morenita Zuleta, MOE- [address], [place], [address], [facility] 03/30/2023 09:53:32 10/27/2023 text/html Here today for AUB.Hx of endo ablation 2022.Hx of tubal ligation. Random AUB period like flow started end of last week.Pain with sexCramping on/off Neg pain of abd/pelvis/flankN eg urinary sx'sNeg GI sx'sNeg N/V/F/C/DNeg Vag d/c, odor, irritation, itching MAYRA Damon- [address], [place], [address], [facility] 10/27/2023 10:26:39 12/02/2023 text/html Presents to discuss abnormal bleeding. Hx of endometrial ablation 1 year ago. Bled x6 weeks following procedure. Then in October, had an episode of abnormal bleeding and pain with sex. Now bleeding has stopped, however the pain is constant and aching. She denies nausea or vomiting. NATY GASTELUM MD [address], [place], [address], [facility] 12/02/2023 10:09:35 OBGyn Episode Ob Episode Information Episode Created Date Number of Fetuses Patient Bloodtype Patient rh Status Prepregnancy Weight lbs Domestic Partner Domestic Partner Phone Father Name Condenser Tube Tender Status 07/31/19 22 1 CLOSED Fetus Data First Name Last Name Admitted to NICU Weight (g) Sex Living Outcome Pediatric Complications Fetus ID Race Codes Race Delivery Type F [id number] Vaginal Delivery Usman Calculation Initial Usman Date Initial Exam Date Initial Exam Provider Initial Ultrasound Date Last Menstrual Period Date Ultra Sound Weeks Gestation 0 Eighteen To Twenty Week Usman Update [...] Domestic Partner Domestic Partner Phone Father Name Condenser Tube Tender Status 07/31/19 22 1 CLOSED Fetus Data First Name Last Name Admitted to NICU Weight (g) Sex Living Outcome Pediatric Complications Fetus ID Race Codes Race Delivery Type M [id number] Vaginal Delivery Usman Calculation Initial Usman Date Initial Exam Date Initial Exam Provider Initial Ultrasound Date Last Menstrual Period Date Ultra Sound Weeks Gestation 0 Eighteen To Twenty Week Usman Update [...] Domestic Partner Domestic Partner Phone Father Name Condenser Tube Tender Status 07/31/19 22 1 CLOSED Fetus Data First Name Last Name Admitted to NICU Weight (g) Sex Living Outcome Pediatric Complications Fetus ID Race Codes Race Delivery Type F [id number] Vaginal Delivery Usman Calculation Initial Usman Date Initial Exam Date Initial Exam Provider Initial Ultrasound Date Last Menstrual Period Date Ultra Sound Weeks Gestation 0 Eighteen To Twenty Week Usman Update [...]
--- OUTSIDE RECORDS SUMMARY | 2024-07-18 14:34 | XMS_ITS | Referral Summary ---
Author Organization [facility] Address [address] [place] [address] Care Team Providers Care Recruitment Director Name Role Phone Gwen Calero Primary Care [...] on file Legal Sex Female 3:43 AM WORM RAISER Gender Identity Not on file Sexual Orientation Not on file Last Filed Vital Signs Vital Sign Reading Time Taken Comments Blood Pressure 127/85 03/27/2024 8:26 AM CDT Pulse 64 03/27/2024 8:26 AM CDT Temperature 36.6 C (97.9 F) 07/13/2023 1:50 PM WORM RAISER Respiratory Rate 16 07/13/2023 4:59 PM WORM RAISER Oxygen Saturation 98% 03/27/2024 8:26 AM CDT Inhaled Oxygen Concentration - - Weight 92.1 kg (203 lb 1.6 oz) 03/27/2024 8:26 A M CDT Height 160 cm (5' 3 ) 03/27/2024 8:26 AM CDT Body Mass Index 35.98 03/27/2024 8:26 AM CDT Plan of Treatment Upcoming Encounters Date Type Department Care Team (Latest Contact Info) Description 07/25/2024 12:30 PM WORM RAISER Hospital Encounter [facility] [address] [place] [address] Yves Krishna MD [address] [place] [address] [address] [place] [address] 07/25/2024 12:30 PM WORM RAISER - 07/25/2024 1:30 PM WORM RAISER Surgery [facility] [address] [place] [address] Yves Krishna MD [address] [place] [address] [place] [address] ESOPHAGOGASTRODUODENOSCOPY Scheduled Procedures Name Priority Associated Diagnoses Date/Ti me ESOPHAGOGASTRODUODENOSCOPY Epigastric pain Diarrhea, unspecified type 07/25/2024 12:30 PM WORM RAISER COLONOSCOPY Epigastric pain Diarrhea, unspecified type 07/25/2024 12:30 PM WORM RAISER Procedures Procedure Name Priority Date/Time Associated Diagnosis Comments PAP IG, HPV-HR Routine 06/02/2018 History of abnormal cervical Pap smear SERUM HEPATITIS C AB Routine 06/16/2016 11:15 AM WORM RAISER from Last 3 Months or Most Recently Relevant to Health Maintenance Results * Pap IG, HPV-hr (06/02/2018) Endocervical 06/02/2018 us Radha Sun NP LAB PATHOLOGY ORDERABLES Final Result EXTERNAL LAB * Serum Hepatitis C ab (06/16/2016 11:15 AM WORM RAISER) HCV ab Negative Negative CDR HISTOR ICAL RESULTS Serum 06/16/2016 11:1 5 AM WORM RAISER us Andrea Addison MD LAB BLOOD ORDERABLES Final Result CDR HISTORICAL RESULTS from Last 3 Months or Most Recently Relevant to Health Maintenance Insurance [facility] Care Teams Recruitment Director Relationship Specialty Start Date End Date Gwen Calero PA PCP - General Neurosurgery 06/03/22
--- OUTSIDE RECORDS SUMMARY | 2024-07-18 14:34 | XMS_ITS | Encounter Summary ---
Author Organization [facility] Address [address] [place] [address] Phone Care Team Providers Care Quality Director Name Role Phone Adam Alejo DO Unavailable [phone] Johnna Valente MANUFACTURING TEAM LEADER, SALES AND MARKETING EXECUTIVE Unavailable Marisela Chaidez MANUFACTURING TEAM LEADER, SALES AND MARKETING EXECUTIVE Unavailable Johnathan Pugh MD Unavailable [phone] Gwen Calero PAC Primary Care Pro vider Reason for Visit * Reason Comments Medication Refill Encounter Details Date Type Department Care Team (Late st Contact Info) Description 08/02/2022 Refill [facility] - Internal Medicine - [place] [address] [place] [id number] Gwen Calero, PAC [address] [facility] [place] [address] Medication Refill Social History Tobacco Use Types [...] Office Visit Gwen Calero PAC [facility] [place] 03/26/22 Office Visit Gwen Calero, CECY [facility] [place] 01/27/22 Office Visit Gwen Calero PAC [facility] [place] Showing recent visits within past 365 days and meeting all other requirements Future Appointments Date Type Provider Dept 09/17/22 Appointment Gwen Calero PAC [facility] [place] Showing future appointments within next 90 days and meeting all other requirements R RESOURCE ENGINEER documented in this encounter Plan of Treatment Upcoming Encounters Date Type Department Care Team (Late st Contact Info) Description 08/13/2024 9:00 AM CDT Office Visit [facility] - [facility] - [place] [address] [place] [address] Gwen Calero PAC [address] [place] [address] documented as of this encounter Goals Goal [...] Ready to change Department associated with goal: [facility] Steps to achieve [...] as of this encounter Care Teams Quality Director Relationship Specialty Start Date End Date Gwen Calero PAC [address] [place] [address] PCP - General Physician Interior Design Coordinator 06/12/21 Adam Alejo DO Gastroenterology 01/07/16 Johnna Valente APRN, SALES AND MARKETING EXECUTIVE Nurse Practitioner Advanced Practice Nurse 01/07/16 Marisela Chaidez, MICHAEL, SALES AND MARKETING EXECUTIVE Nurse Practitioner Advanced Practice Nurse 01/07/16 Johnathan Pugh MD [address] [place] [address] Obstetrics & Gynecology 08/13/19 documented as of this encounter
--- NOTE | 2024-07-18 15:09 | ED_ITS ---
HPI - URI/Sore Throat General Chief Complaint: Upper Respiratory Infection Stated Complaint: Sore Throat/Congestion Time Seen by Provider: 07/18/24 15:05 Source: patient, RN notes reviewed and old records reviewed Mode of arrival: ambulatory Limitations: no limitations History of Present Illness HPI Narrative: 39 year old female who presents to [facility] care with complaints of sore throat , nasal congestion fatigue, headache and cough some shortness of breath since yesterday. Patient reports that she was exposed to flu and strep on Tuesday. Patient has been taking Excedrin for her symptoms with last dose at 1130 today. MD elicited complaint: cough, sore throat, rhinorrhea, nasal congestion and other (fatigue , headache, some dyspnea) Onset (ago): day(s) (since yesterday) Consistency: constant Pain scale (0-10): 4 Able to tolerate fluids by mouth: Yes Related Data Home Medications ?Medication ?Instructions ?Recorded ?Confirmed ?Last Taken ?Type alprazolam 0.25 mg tablet mg 06/02/24 Unknown History buspirone 10 mg tablet mg 06/02/24 Unknown History phentermine 37.5 mg tablet mg 07/18/24 Unknown History Allergies Allergy/AdvReac Type Severity Reaction Status Date / Time No Known Allergies Allergy Verified 07/18/24 14:40 Review of Systems Review of Systems: CONSTITUTIONAL:Reports malaise,no chills, sweats, or fever. EYES: Denies visual changes, redness, or discharge. ENT: Reports rhinorrhea, congestion, sinus pain,no otalgia and positive for sore throat. CARDIOVASCULAR: Denies chest pain, palpitations, or edema. RESPIRATORY: Reports cough.? Reports dyspnea with exertion. GASTROINTESTINAL: Denies abdominal pain, nausea, vomiting, diarrhea SKIN: Denies rash or itching. MUSCULOSKELETAL: Denies myalgia. NEUROLOGIC: Reports headache. All systems reviewed & are unremarkable except as noted in HPI and below PMFSH Past Medical History Medical History (Updated 07/20/24 @ 16:40 by Irena Darnell NP) ADHD (attention deficit hyperactivity disorder) IBS (irritable bowel syndrome) Fibromyalgia Obesity Anxiety Surgical History Surgical History History of ear surgery perforation of left ear Family History Family History Mother Hypertension Thyroid disorder Sibling Thyroid disorder Grandparent Alcoholism Grandparent Alcoholism Lung cancer Social History Social History Smoking packs per day: 1 Smoking cigarettes per day: 20.0 Years smoked: 20 Smoking pack-years: 20.00 Smoking status: Former smoker Tobacco type: cigarettes Alcohol intake: current Substance use: never Substance use type: does not use Do You Feel Safe in your Home?: Yes Lack of Transportation: No Lack of Food: Never True Current Housing: I Have Housing Concerned About Future Housing: No Difficulty Paying Gas/Electric Bills: YES Difficulty Paying for Meds: No Currently Unemployed: No Education: Trade/Vocational Certificate Difficulty w/ Childcare or Family Care: No Living arrangements: with family Gender identity (if verbalized by the patient): Female Spiritual care concerns: No Comments At time of signature, agree with nursing past medical, surgical, social and family history. There is no relevant family history pertinent to the presenting complaint Exam Narrative: GENERAL: Well-appearing, well-nourished, and in no acute distress. HEAD: Normocephalic EYES: PERRLA, conjunctivae clear ENT: Nares clear, turbinates edematous and erythematous, clear discharge, sinus pressure headache, Mucous membranes moist. TM pearly tierney with dull light reflex bilaterally; no tragal tenderness. Oropharynx erythematous without lesions. Tonsils re not enlarged and without exudate, no drooling, no hoarseness, no tri smus, uvula midline.post nasal drainage NECK: Supple. No lymphadenopathy CHEST: Clear to auscultation, breath sounds equal. No wheezing, rhonchi, rales, or stridor. No respiratory distress, speaks in full sentences.cough noted no tachypnea or any retractions SAO2 100% on room air HEART: Regular rate and rhythm. No murmur heard. SKIN: Warm, dry, no rash. NEURO: Alert and oriented x3. PSYCH: Normal mood and affect Course Course Emergency Course: Patient is aware of diagnosis, understands and agrees to treatment plan.? Anticipatory guidance given.? Patient agrees to follow-up as directed and is aware of reasons to seek care at the emergency department. Portions of this record may have been created with voice recognition software Level of Care: Express Care Visit Vital Signs Vital signs: Vital Signs Temperature 36.6 C 07/18/24 14:33 Pulse Rate 89 07/18/24 14:33 Respiratory Rate 16 07/18/24 14:33 Blood Pressure 141/95 H 07/18/24 14:33 Pulse Oximetry 100 07/18/24 14:33 Oxygen Delivery Room Air 07/18/24 14:33 Temperature 36.6 C 07/18/24 14:33 Pulse Rate 89 07/18/24 14:33 Respiratory Rate 16 07/18/24 14:33 Blood Pressure 141/95 H 07/18/24 14:33 Pulse Oximetry 100 07/18/24 14:33 Oxygen Delivery Room Air 07/18/24 14:33 Reviewed MDM - URI/Sore Throat MDM Narrative Medical decision making narrative: Differential diagnosis considered: Crandlal virus, strep pharyngitis, allergic rhinitis, upper respiratory tract infection, sinusitis, rhinosinusitis, nasopharyngitis. viral pharyngitis, otitis media, otitis externa, pneumonia, bronchitis, viral cough syndrome, viral syndrome, and influenza.? Exam findings show no acute concerns or changes; patient is non-toxic appearing and is in no distress.? Patient is appropriate for outpatient treatment and follow-up. Differential Diagnosis Differential diagnosis: Likely upper respiratory infection, sinusitis, viral infection, influenza, pharyngitis and other (strep pharyngitis, COVID) Medical Records Attestation: I reviewed the patient's medical records. Lab Data Attestation: I reviewed the patient's lab results. Labs: Lab Results 07/18/24 Range/Units 15:19 POC Influenza A Ag Negative (Negative) POC Influenza B Ag Negative (Negative) POC SARS CoV-2 Ag Negative (Negative) POC Grp A Strep Screen Negative (Negative) reviewed Critical Care Time Critical Care Time Critical Care Time: No Discharge Plan Discharge Clinical Impression: URI, acute Cough Qualifiers: Cough type: acute Qualified Code(s): R05.1 - Acute cough Patient Disposition: Home, Self-Care Condition: Stable Instructions: Antibiotic Form, Upper Respiratory Infection (ED), Acute Cough (ED) Additional Instructions: Increase fluids especially juices and water Fust-[id number] cough and cold medicine of your choice for your symptoms Zyrtec Claritin or Tracee daily include Coricidin brand decongestant Cough tablets as directed for cough--do not bite, chew or suck on--swallow whole Tylenol or ibuprofen for any fever pain Steroids as directed--take with food heat to the face 20-30 minutes 4-6 times a day for pain Salt water gargles, throat lozenges or throat sprays as desired Must be fever free for 24 hours without use of Tylenol or ibuprofen before you can return to work Your strep test today was negative. A throat culture will be sent to the laboratory for further testing. IF the test is positive, you will receive a phone call within 48 hours and an appropriate antibiotic will be initiated at that time. If your symptoms persist, change or worsen significantly before you can contact your personal physician then please, without delay, go to the emergency department for further evaluation. Follow-up with PCP in 7-10 days or sooner if needed Follow up with PCP soon in regards to your blood pressure which is elevated above threshold for referral. Blood pressure above 120/80 may indicate pre- hypertension. 141/95 Patient Language: Pashto Prescriptions: New prednisone 20 mg tablet 20 mg PO BID Qty: 10 0RF Rx Instructions: Take with food, p.m. dose no later than 6:00 p.m. benzonatate 200 mg capsule 200 mg PO TID PRN (Reason: cough) Qty: 20 0RF No Action triamcinolone acetonide 0.1 % cream 1 applic topical BID 7 Days Qty: 30 0RF alprazolam 0.25 mg tablet buspirone 10 mg tablet phentermine 37.5 mg tablet Follow-up/Referrals: Galilea,ODILON Hidalgo [Primary Care Provider] - Time of Disposition: 15:23 Quality Riner Coma Scale Eyes: Open Verbal: Oriented and Alert Motor: Follows Commands Riner Coma Total Score: 15
[2024-07-18 15:21] LABS: EDCOVIDSCREEN Negative (Negative); EDINFLUASCREEN Negative (Negative); EDINFLUBSCREEN Negative (Negative); EDSTREPNEGPOS1 Negative (Negative)
== END 2024-07-18 15:28 | disposition home or self-care (01) ==
PROVIDERS: Emergency Provider Registered Nurse; PCP Physician Assistant
DX: J06.9 Acute upper respiratory infection, unspecified (principal); Z87.891 Personal history of nicotine dependence; Z20.822 Contact with and (suspected) exposure to COVID-19
CPT/HCPCS: 87081; 87426; 87804; 87880; 99213; G0463

== ENCOUNTER 2024-11-06 19:03 | Emergency (ER) | payer OTHER, SELFPAY ==
--- OUTSIDE RECORDS SUMMARY | 2024-11-06 19:05 | XMS_ITS | Encounter Summary ---
Author Organization [facility] Address [address] [place] [address] Phone Care Team Providers Care Network Liaison Name Role Phone Adam Alejo DO Unavailable [phone] Johnna Lund SERVICE AND REPAIR SUPERVISOR, INDUSTRIAL TRACTOR DRIVER Unavailable Marisela Chaidez SERVICE AND REPAIR SUPERVISOR, INDUSTRIAL TRACTOR DRIVER Unavailable Johnathan Pugh MD Unavailable [phone] Gwen Calero PAC Primary Care Pro vider Reason for Visit * Reason Comments Medication Refill Encounter Details Date Type Department Care Team (Late st Contact Info) Description 05/22/2023 Refill [facility] - Internal Medicine - [place] [address] [place] [id number] Gwen Calero, PAC [address] [place] [address] Medication Refill Social History Tobacco Use Types [...] med Needs OV for beginning of Jun EAR RADIATION ENGINEER * Telephone Encounter - Radha Johnson RN [...] [place] 06/18/22 Office Visit Gwen Calero PAC [facility] [place] Showing recent visits within past 365 days and meeting all other requirements Future Appointments No visits were found meeting these conditions. Showing future appointments within next 90 days and meeting all other requirements EAR RADIATION ENGINEER documented in this encounter Plan of Treatment Upcoming Encounters Date Type Department Care Team (Late st Contact Info) Description 11/14/2024 11:00 AM CDT Office Visit [facility] - Internal Medicine [facility] [address] [place] [address] Gwen Calero PAC [address] [place] [address] documented as of this encounter Goals Goal [...] documented as of this encounter Care Teams Network Liaison Relationship Specialty Start Date End Date Gwen Calero PAC [address] [place] [address] PCP - General Physician Sld Educational Aide 06/12/21 Adam Alejo DO Gastroenterology 01/07/16 Johnna Valente, SERVICE AND REPAIR SUPERVISOR, INDUSTRIAL TRACTOR DRIVER Nurse Practitioner Advanced Practice Nurse 01/07/16 Marisela Chaidez, SERVICE AND REPAIR SUPERVISOR, INDUSTRIAL TRACTOR DRIVER Nurse Practitioner Advanced Practice Nurse 01/07/16 Johnathan Pugh MD [address] [facility] [address] [place] [address] Obstetrics & Gynecology 08/13/19 documented as of this encounter
--- OUTSIDE RECORDS SUMMARY | 2024-11-06 19:05 | XMS_ITS | Clinical Summary ---
Author Organization [facility] Address [address] [place] [address] Care Team Providers Care Pet Ambassador Name Role Phone Gwen Calero Primary Care Prov ider Allergies No known active allergies Medications omeprazole (PriLOSEC) 20 mg capsule Take 1 capsule (20 mg total) by mouth daily Active ondansetron ODT (ZOFRAN-ODT) 4 mg disintegrating tablet Take 1 tablet (4 mg total) by mouth every 6 (six) hours as needed for nausea or vomiting 30 tablet 1 5 Active ALPRAZolam (XANAX) 0.25 mg tablet Take by mouth 2 (two) times a day as needed for anxiety 4 Active phentermine 15 mg capsule Take 1 capsule (15 mg total) by mouth daily Active chlordiazePOXIDE-cl idinium (LIBRAX) 5-2.5 mg per capsule Take 1 capsule by mouth 3 (three) times a day with meals Take with meals and at bedtime 90 capsule 3 5 01/26/20 25 Active Active Problems Problem Noted Date Diagnosed Date Epigastric pain 03/27/2024 Alternating constipation and diarrhea 03/27/2024 Abdominal bloating 03/27/2024 Early satiety 03/27/2024 Diarrhea 03/27/2024 Abnormal Pap smear of cervix 11/17/2016 Overview (11/17/2016): ASCUS with + HPV 11-16-16, declined Colpo Fibrositis 04/23/2015 Overview (09/09/2016): Fibromyalgia Resolved Problems Problem Noted Date Diagnosed Date Resolved Date Rh negative, antepartum 11/17/2016 03/12/2017 Assessment & Plan (11/17/2016 10:01 AM CDT): Rhogam given on 11-02-16 History of labor 11/17/2016 Low-lying placenta 10/04/2016 8 Overview (11/17/2016): Resolved 10-12-16. Cervical length 3.0 cm Encounters Date Type Department Care Team Description 5 Results Follow-Up [facility] Gastroenterology at [address] [place] [address] Mariano Feliz MD Surgical pathology 5 Orders Only [facility] Gastroenterology at [address] [place] [address] Mariano Feliz MD 5 1:36 PM CDT Anesthesia Event [address] [address] Yobani Uribe MD 5 12:00 PM CDT - 5 1:00 PM CDT Surgery [address] [address] Mariano Feliz MD ESOPHAGOGASTRODUODENOSCOPY BIOPSY 5 11:08 AM CDT - 5 2:51 PM CDT Hospital Encounter [address] [address] Yves Krishna MD Karadaghy, Ahmad A., MD Epigastric pain; Diarrhea, unspecified type Discharge Disposition: Discharge to home or self care 5 Orders Only [facility] Gastroenterology at [address] [place] [address] Yves Krishna MD from Last 3 Months Surgical History Surgery Date Site/Laterality Comments OTHER SURGICAL HISTORY 06/06/2003 - 06/05/2004 : 6 hr labor OTHER SURGICAL HISTORY 06/06/2006 - 06/05/2007 : 12 hr labor OTHER SURGICAL HISTORY hole patched on ear drum [facility] 01/11/2017 COLONOSCOPY 09/20/2024 1st UPPER GASTROINTESTINAL ENDOSCOPY 09/20/2024 OTHER SURGICAL HISTORY states fallopian tubes were removed. Medical History Medical History Date Comments Hx [...] making you feel afraid or unsafe? Denies 09/20/2024 Comments No Sex and Gender Information Value Date Recorded Sex Assigned at Not on file Legal Sex Female 3:43 AM [facility] Gender Identity Not on file Sexual Orientation [...] Sign Reading Time Taken Comments Blood Pressure 134/86 09/20/2024 2:30 PM CDT Pulse 72 09/20/2024 2:30 PM CDT Temperature 36.7 C (98.1 F) 09/20/2024 2:30 PM CDT Respiratory Rate 16 09/20/2024 2:30 PM CDT Oxygen Saturation 98% 09/20/2024 2:30 PM CDT Inhaled Oxygen Concentration - - Weight 84.8 kg (187 lb) 09/20/2024 11:40 AM CDT Height 160 cm (5' 3) 09/20/2024 11:40 AM CDT Body Mass Index 33.13 09/20/2024 11:40 AM CDT Plan of Treatment Health Maintenance Due Date Last Done Comments Varicella Vaccines (1 of 2 - 13+ 2-dose series) 1998 Hepatitis B Screening 2003 Depression Screening 08/30/2018 08/30/2017 Regular Well Visit/Exam 18-64 08/30/2018 08/30/2017 Cervical Cancer Screening 06/02/20192017, 08/30/2017, 02/25/2017 Influenza Vaccine (Season Ended) 2025 06/10/2023, 05/29/2020, 03/24/2018 DTaP/Tdap/Td Vaccine (2 - Td or Tdap) 01/12/2027 01/12/2017 Hepatitis C Screening Completed 06/16/2016 HPV Vaccines Aged Out No longer eligi ble based on patient's age to complete this topic Pneumococcal vaccine <65 Aged Out No longer eligible based on patient's age to complete this topic Procedures Procedure Name Priority Date/Time Associated Diagnosis Comments SURGICAL PATHOLOGY STAT 09/20/2024 2:04 PM CDT Epigastric pain Diarrhea, unspecified type ENDO ADD ON COLON BIOPSY 025 1:28 PM CDT Epigastric pain Diarrhea, unspecified type COLON REMOVAL SNARE 09/20/2024 1:28 PM CDT Epigastric pain Diarrhea, unspecified type ESOPHAGOGASTRODUODENOSCOPY BIOPSY 09/20/2024 1:28 PM CDT Epigastric pain Diarrhea, unspecified type EGD 09/20/2024 11:19 AM CDT COLONOSCOPY 09/20/2024 11:18 AM CDT PAP IG, HPV-HR Routine 06/02/2018 History of abnormal cervical Pap smear SERUM HEPATITIS C AB Routine 06/16/2016 11:15 AM [facility] from Last 3 Months or Most Recently Relevant to Health Maintenance Results * Surgical pathology (09/20/2024 2:04 PM CDT) Tissue (Gastric/Stomach biopsy) 09/20/2024 1:43 PM CDT Tissue specimen (specimen) (Colon, Biopsy) 09/20/2024 1:53 PM CDT Tissue specimen (specimen) (Polyp(s), colon/colorectal, esophageal, gastric) 09/20/2024 1:53 PM CDT Narrative [facility] - 09/25/2024 3:49 PM CDT EPIC results best viewed via link to PDF [facility] Department of Pathology [address] [place] [address] Note to Patients: This report may contain a detailed description of human tissue sent by a health care provider to the laboratory for pathologic evaluation. The content of this report is essential for diagnosis and may provide important critical findings. This information may be unfamiliar to patients to review without a medical professional present. It is advised that the patient review this report in the presence of a health care provider who can answer questions and explain the details. Final Report Patient Name: CHELSIE CONSTANTINO Address: [address] [place], [place] [address] Gender: F : 1985 (Age: 39) Service: Gastro Location: [facility] Hospital #: [id number] Patient Type: [facility] Taken: 09/20/2024 Received: 09/21/2024 Accessioned: 09/21/2024 Reported: 09/25/2024 Physician(s):Dr. Mariano Feliz M.D. Diagnosis: A. Gastric, biopsy: - Mild chronic inactive gastritis with focal erosion. - No evidence of intestinal metaplasia, dysplasia, or malignancy. - Negative Helicobacter immunostain. B. Colon, random, biopsy: - Colonic mucosa with no significant histopathologic abnormalities. C. Colon, descending, biopsy: - Hyperplastic polyp. - No evidence of dysplasia or malignancy. Marshall Brooks MD Report Electronically Reviewed and Signed Out By Marshall Brooks MD 09/25/2024 15:49:25 Specimen(s) Received: A: Gastric biopsy B: Random colon biopsies C: Descending colon polyp x 1 Microscopic Description: A. Microscopic examination shows a mild chronic inactive gastritis with focal erosion. There is no evidence of intestinal metaplasia, dysplasia, or malignancy. No definitive Helicobacter organisms are identified on routine H&E staining. A Helicobacter immunostain is performed with appropriately reactive controls on block A1 and is negative. B. Microscopic examination shows colonic mucosa with no significant histopathologic abnormalities. There is no significant active inflammation. There is no significant intraepithelial lymphocytosis nor is there thickening of the subepithelial collagen layer. There is no evidence of dysplasia or malignancy. C. Microscopic examination of the bisected specimen shows polypoid fragments of colonic mucosa with hyperplastic glandular changes without evidence of marked crypt dilation, lateral branching, or flattening of the crypt bases. The findings are consistent with a hyperplastic polyp. There is no evidence of dysplasia or malignancy. Clinical History: Epigastric pain. Diarrhea. EGD. Colonoscopy. Gross Description: The specimen is submitted in three formalin containers labeled patient. A. The first container is labeled gastric biopsy. It is 4 fragments of kaufman tissue, measuring 1-2 mm. All in A. B. The second container is labeled random colon. It is 8 fragments of kaufman tissue between 1 and 2 mm. All in B. C. The third container is labeled descending colon polyp. It is 1 red-kaufman polypoid tissue fragment measuring 7 mm. Inked and bisected. All in C. T.A. Mayco Patrick., P.A./Shoaib Muñoz M.D. REPORT IMAGES AND SCANNED DOCUMENTS, IF INCLUDED, ONLY VIEWABLE IN PDF VERSION OF REPORT The performance characteristics of some immunohistochemical stains, fluorescence in-situ hybridization tests and immunophenotyping by flow cytometry cited in this report (if any) were determined by the Surgical Pathology Department at [facility] as part of an ongoing quality control lead program and in compliance with federally mandated regulations drawn from the Clinical Laboratory Improvement Act of 1988 (CLIA '88). Some of these tests rely on the use of analyte specific reagents and are subject to specific labeling requirements by the US Food and Drug Administration. Such diagnostic tests may only be performed in a facility that is certified by the Department of Health and Human Services as a high complexity laboratory under CLIA '88. The FDA has determined that such clearance or approval is not necessary. This test is used for clinical purposes. It should not be regarded as investigational or for research. Nevertheless, federal rules concerning the medical use of analyte specific reagents require that the following disclaimer be attached to the report: This test was developed and its performance characteristics determined by the Surgical Pathology Department [facility]. It has not been cleared or approved by the U. S. Food and Drug Administration. Note for decalcified specimens: This assay has not been validated on decalcified tissues. Results should be interpreted with caution given the possibility of false negativity on decalcified specimens Mariano Feliz MD LAB PATHOLOGY ORDERABLES F inal Result PATHOLOGY [address] [address] * EGD (09/20/2024 11:19 AM CDT) Anatomical Region Laterality Modality Other Narrative Procedure Note Mariano Feliz MD - 09/20/2024 11:19 AM CDT [facility] Patient Name: Chelsie Constantino Procedure Date: 09/20/2024 11:19 AM Date of : 1985 Admit Type: Outpatient Age: 39 Gender: Female Attending MD: Mariano Feliz M.D. [facility] 1 Note Status: Finalized Patient Profile: This is a 39 year old female. Patient complains of chronic upper abdominal pain and diarrhea. EGD for evaluation Procedure: Upper GI endoscopy Indications: Upper abdominal pain, Diarrhea Referring MD: Gwen Calero PA-C Providers: Mariano Feliz M.D. Impression: - Normal esophagus. - Mild chronic gastritis. Biopsied. - Normal examined duodenum. Recommendation: - Await pathology results. - Continue present medications. - No significant pathology noted to explain the patient's symptoms of pain. Trial of Librax 3 times daily with meals. - Follow up in the GI office as scheduled. Medicines: Monitored Anesthesia Care Complications: No immediate complications. Estimated Blood Loss: Estimated blood loss: none. Procedure: Pre-Anesthesia Assessment: - Prior to the procedure, a History and Physicalwas performed, and patient medications and allergieswere reviewed. The patient's tolerance of previous anesthesia was also reviewed. The risks andbenefits of the procedure and the sedation options and risks were discussed with the patient. All questions were answered, and informed consent was obtained. Prior Anticoagulants: The patient has taken noanticoagulant or antiplatelet agents. ASA Grade Assessment: Per anesthesia note and evaluation. After reviewing the risks and benefits, the patient was deemed in satisfactory condition to undergo the procedure. The benefits, risks, and alternatives to theprocedure and sedation were discussed and informed consentwas obtained. The scope was passed under direct vision. The Endoscope GIF-H190 [id number] was introduced through the mouth, and advanced to the second partof duodenum. The upper GI endoscopy was accomplished without difficulty. The patient tolerated the procedure well. Findings: The examined esophagus was normal. The GE junction was normal Localized mild inflammation characterized by congestion (edema) and erythema was found in the prepyloric region of the stomach. Biopsies were taken with a cold forceps for histology. The gastric body and fundus were normal. Retroflexion stomach in the gastric cardia wasnormal The examined duodenum was normal. Mucosa and villous pattern normal Electronically signed by Mariano Feliz M.D. Mariano Feliz M.D. 09/20/2024 2:06:34 PM Number of Addenda: 0 Note Initiated On: 09/20/2024 11:19 AM Procedure Code(s): --- Professional --- 76484, Esophagogastroduodenoscopy, flexible, transoral; with biopsy, single or multiple Diagnosis Code(s): --- Professional --- K29.50, Unspecified chronic gastritis without bleeding R10.10, Upper abdominal pain, unspecified R19.7, Diarrhea, unspecified CPT copyright 2020 [employer]. All rights reserved. The codes documented in this report are preliminary and upon grease machine worker reviewmay be revised to meet current compliance requirements. Recognized by the [employer] for promoting quality in endoscopy Mariano Feliz MD ENDOSCOPY PROCEDURES Final Result * Colonoscopy (09/20/2024 11:18 AM CDT) Anatomical Region Laterality Modality Other Narrative Procedure Note Mariano Feliz MD - 09/20/2024 11:18 AM CDT [facility] Patient Name: Chelsie Constantino Procedure Date: 09/20/2024 11:18 AM Date of : 1985 Admit Type: Outpatient Age: 39 Gender: Female Attending MD: Mariano Feliz M.D. [facility]: [facility] 1 Note Status: Finalized Patient Profile: This is a 39 year old female. Patient has chronic upper abdominal pain and diarrhea. No familyhistory of colon cancer Procedure: Colonoscopy Indications: This is the patient's first colonoscopy, Upper abdominal pain, Clinically significant diarrhea of unexplained origin Referring MD: Gwen Calero PA-C Providers: Mariano Feliz M.D. Impression: - Random colon biopsy performed - One 10 mm polyp in the descending colon, removed with a cold snare. Resected and retrieved. - Internal hemorrhoids. Recommendation: - Await pathology results. - Repeat colonoscopy in 5 years for surveillance. Medicines: Monitored Anesthesia Care Complications: No immediate complications. Estimated Blood Loss: Estimated blood loss: none. Procedure: Pre-Anesthesia Assessment: - Prior to the procedure, a History and Physicalwas performed, and patient medications and allergieswere reviewed. The patient's tolerance of previous anesthesia was also reviewed. The risks andbenefits of the procedure and the sedation options and risks were discussed with the patient. All questions were answered, and informed consent was obtained. Prior Anticoagulants: The patient has taken noanticoagulant or antiplatelet agents. ASA Grade Assessment: Per anesthesia note and evaluation. After reviewing the risks and benefits, the patient was deemed in satisfactory condition to undergo the procedure. The benefits, risks and alternatives of theprocedure and sedation were discussed and informed consentwas obtained. All questions were answered. Please referto the signed informed consent document in the medical record. The bowel preparation used was Miralax via split dose instruction. The bowel preparation usedwas bisacodyl tablets via split dose instruction. The scope was passed under direct vision. The Pediatric Colonoscope PCF-H190L [id number] was introducedthrough the anus and advanced to the the cecum, identifiedby appendiceal orifice and ileocecal valve. Thequality of the bowel preparation was good. Bowel prep was administered using a split dose. Findings: The perianal and digital rectal examinations were normal. The cecum appeared normal. The colon (entire examined portion) appeared normal overall with no inflammatory changes noted.. Biopsies for histology were taken with a cold forceps from the entire colon for evaluation of microscopiccolitis. A 10 mm polyp was found in the descending colon. The polyp was semi-sessile. The polyp was removed with a cold snare. Resection and retrieval were complete. Internal hemorrhoids were found during retroflexion. The hemorrhoids were small. Electronically signed by Mariano Feliz M.D. Mariano Feliz M.D. 09/20/2024 2:08:39 PM Number of Addenda: 0 Note Initiated On: 09/20/2024 11:18 AM Procedure Code(s): --- Professional --- 53648, Colonoscopy, flexible; with removal of tumor(s), polyp(s), or other lesion(s) by snare technique 13973, 59, Colonoscopy, flexible; with biopsy, single or multiple Diagnosis Code(s): --- Professional --- K64.8, Other hemorrhoids D12.4, Benign neoplasm of descending colon R10.10, Upper abdominal pain, unspecified R19.7, Diarrhea, unspecified CPT copyright 2020 [employer]. All rights reserved. The codes documented in this report are preliminary and upon grease machine worker reviewmay be revised to meet current compliance requirements. Recognized by the [employer] for promoting quality in endoscopy Mariano Feliz MD ENDOSCOPY PROCEDURES Final Result * Pap IG, HPV-hr (06/02/2018) Endocervical 06/02/2018 us Radha Sun NP LAB PATHOLOGY ORDERABLES Final Result EXTERNAL LAB * Serum Hepatitis C ab (06/16/2016 11:15 AM [facility]) HCV ab Negative Negative CDR HISTOR ICAL RESULTS Serum 06/16/2016 11:1 5 AM [facility] us Andrea Addison MD LAB BLOOD ORDERABLES Final Result CDR HISTORICAL RESULTS from Last 3 Months or Most Recently Relevant to Health Maintenance Insurance [facility] Advance Directives For more information, please contact: [phone] * Full Code (Latest Code Status on File) Date Activated Date Inactivated Comments 09/20/2024 11:28 AM 09/20/2024 6:57 PM * Full Code Date Activated Date Inactivated Comments 09/20/2024 11:28 AM 09/20/2024 11:28 AM Care Teams Pet Ambassador Relationship Specialty Start Date End Date Gwen Calero PA PCP - General Neurosurgery 06/03/22
--- OUTSIDE RECORDS SUMMARY | 2024-11-06 19:05 | XMS_ITS | Encounter Summary ---
Author Organization [facility] Address [address] [place] [address] Phone Care Team Providers Care Undergraduate Advisor Name Role Phone Carmen Brown MD Primary Care Provider [phone] Adam Alejo DO Unavailable [phone] Johnna Valente HEELER MACHINE, TECHNICAL PRODUCT MANAGER Unavailable [phone] Marisela Chaidez APRN, TECHNICAL PRODUCT MANAGER Unavailable Johnathan Pugh MD Unavailable [phone] Gwen Calero PAC Primary Care Pro vider Reason for Visit * Reason Comments Medication Refill Encounter Details Date Type Department Care Team (Late st Contact Info) Description 12/18/2020 Refill [facility] - Primary Care - [place] [address] [place] [address] Viviane De La Rosa, HEELER MACHINE, TECHNICAL PRODUCT MANAGER [address] [place] [address] Medication Refill Social History Tobacco [...] Description 11/14/2024 11:00 AM CDT Office Visit [facility] - Internal Medicine [facility] [address] [place] [id number] Gwen Calero, CECY [address] [place] [address] documented as of this encounter Visit Diagnoses Diagnosis Mild episode of recurrent major depressive disorder (HCC) Anxiety Anxiety state, unspecified documented in this encounter Additional Health Concerns Assessment Noted Time PHQ-9 Depression Total Score: 15 021 11:00 AM CDT documented as of this encounter Care Teams Undergraduate Advisor Relationship Specialty Start Date End Date Carmen Brown MD PCP - General Family Medicine 10/28/15 06/11/21 Gwen Calero, PAC [address] [place] [address] PCP - General Physician Bottom Finisher 06/12/21 Adam Alejo DO Gastroenterology 01/07/16 Johnna Valente HEELER MACHINE, TECHNICAL PRODUCT MANAGER Nurse Practitioner Advanced Practice Nurse 01/07/16 Marisela Chaidez, MICHAEL, TECHNICAL PRODUCT MANAGER Nurse Practitioner Advanced Practice Nurse 01/07/16 Johnathan Pugh MD [address] [place] [address] Obstetrics & Gynecology 08/13/19 documented as of this encounter
--- OUTSIDE RECORDS SUMMARY | 2024-11-06 19:05 | XMS_ITS | Clinical Summary ---
Author Organization [facility] Care Team Providers Care Senior Ssis Developer Name Role Phone Adam Alejo DO Unavailable Johnna Valente RADIO INTELLIGENCE OPERATOR, DREDGE OPERATOR Unavailable [phone] Marisela Chaidez RADIO INTELLIGENCE OPERATOR, DREDGE OPERATOR Unavailable Johnathan Pugh MD Unavailable [phone] Gwen Calero PAC Primary Care Pro vider Allergies Active Allergy Reactions Criticality Noted Date Comments Buspirone Other (see Comments) 08/13/2024 Increased psyche symptoms Medications omeprazole (PriLOSEC) 20 MG CAPSULE DELAYED RELEASE Take 1 Capsule by mouth daily. 90 Capsule 3 11/08/2023 Active Phentermine HCl 37.5 MG TabletIndicatio ns:Overweight Take 1 Tablet by mouth every morning (before breakfast). 30 Tablet 2 06/08/2024 Active ALPRAZolam (XANAX) 0.5 MG TabletIndicatio ns:Anxiety Take 1 Tablet by mouth nightly as needed for Anxiety. 15 Tablet 08/03/2024 Active Active Problems Problem Noted Date Diagnosed Date Well woman exam 08/13/2024 Overview (08/13/2024): Pt is followed by [facility] for her CLASSIFIED AD TAKER care Last noted pap was September 2022 She has been advised to see them annually or per their recommendations Screening mammogram for breast cancer 08/13/2024 Overview (08/13/2024): Diagnostic and u/s done Jun 2024 completed; repeat 1 year annual screening Screening for diabetes mellitus 06/08/2024 Screening cholesterol [...] Encounters Date Type Department Care Team Description 08/16/2024 Results Follow-Up [address] [address] Gwen Calero, CECY UR TOXICOLOGY SCREEN 08/14/2024 Results Follow-Up [address] [address] Gwen Calero, CECY CMP (COMPREHENSIVE METABOLIC PANEL), HEMOGLOBIN A1C W/ ESTIMATED GLUCOSE, LIPID PANEL, Additional followed-up results: 3 08/13/2024 9:00 AM CDT Office Visit [facility] Internal Medicine [facility] [address] [place] [address] Gwen Calero, CECY Gastroesophageal reflux disease, unspecified whether esophagitis present (Primary Dx); Need for hepatitis C screening test; Anxiety; Weight gain; Well woman exam; Screening mammogram for breast cancer; High risk medication use; Well adult exam; Screening for diabetes mellitus; Screening cholesterol level; Thyroid disorder screening Discharge Disposition: Discharged to home or Selfcare 08/13/2024 Travel from Last 3 Months Immunizations Immunization [...] drinks three bottles of wine a week [facility] Utilities Answer Date Recorded In the past 12 months has e [employer], oil, or water [employer] threatened to shut off services in your [...] than three times a week 11/08/2023 Attends [facility] Not on file 11/07 Active Member [...] Date Recorded Total Score - Questions 1-9 5 08/04 [facility] [place] [facility] Occupat ional [facility] - Occupational Stress [...] Sign Reading Time Taken Comments Blood Pressure 118/88 08/13/2024 9:14 AM CDT Pulse 75 08/13/2024 9:14 AM CDT Temperature 36.4 C (97.6 F) 08/13/2024 9:14 AM CDT Respiratory Rate 12 08/13/2024 9:14 AM CDT Oxygen Saturation 98% 08/13/2024 9:14 AM CDT Inhaled Oxygen Concentration - - Weight 90.3 kg (199 lb) 08/13/2024 9:14 AM CDT Height 160 cm (5' 3) 11/08/2023 8:27 AM CDT Body Mass Index 35.25 11/08/2023 8:27 AM CDT Plan of Treatment Upcoming Encounters Date Type Department Care Team (Late st Contact Info) Description 11/14/2024 11:00 AM CDT [facility] Visit [facility] - [place] [address] [place] [address] Gwen Calero, [facility] [address] [place] [address] Health Maintenance Due Date Last Done Comments Hepatitis B Immunization (1 of 3 - 19+ 3-dose series) 2004 SARS-COV-2 Immunization ( season) 2024 Pap Smear 09/20/2025 09/20/2022 Td Immunization Every 10 Yea rs (Adults With 1 Tdap) 01/12/2027 01/12/2017 Cervical Cancer Screening (CCS) 09/21/2027 HPV/Cotest 09/21/2027 09/20/2022 Respiratory Syncytial Virus (RSV) Immunization (Adult) (1 - 1-dose 75+ series) 2060 Influenza Immunization Discontinued , 05/29/2020, 03/24/2018 Hepatitis C Virus (HCV) Screening Completed 08/13/2024 Human Papillomavirus (HPV) Immunization Aged Out No longer eligible based on patient's age to complete this topic Meningococcal Immunization (ACWY) Aged Out No longer eligible based on patient's age to complete this topic Pneumococcal Immunization Combined Aged Out No longer eligible based on [...] to change Department associated with goal: [facility] Steps to achieve [...] Procedure Name Priority Date/Time Associated Diagnosis Comments EGD 09/20/2024 12:00 AM CDT HM COLONOSCOPY 09/20/2024 12:00 AM CDT CBC WITH AUTO DIFFERENTIAL Routine 08/13/2024 10:01 AM CDT Well adult exam HEPATITIS C ANTIBODY Routine 08/13/2024 10:01 AM CDT Need for hepatitis C screening test THYROID STIMULATING HORMONE (TSH) Routine 08/13/2024 10:01 AM CDT Well adult exam Thyroid disorder screening LIPID PANEL Routine 08/13/2024 10:01 AM CDT Well adult exam Screening cholesterol level HEMOGLOBIN A1C W/ ESTIMATED GLUCOSE Routine 08/13/2024 10:01 AM CDT Well adult exam Screening for diabetes mellitus COMPLETE BLOOD COUNT (CBC) WITH DIFF Routine 08/13/2024 10:01 AM CDT Well adult exam CMP (COMPREHENSIVE METABOLIC PANEL) Routine 08/13/2024 10:01 AM CDT Well adult exam UR TOXICOLOGY SCREEN 08/13/2024 12:00 AM CDT PATHOLOGY CYTOLOGY CLASSIFIED AD TAKER 09/20/2022 12:00 AM CDT from Last 3 Months or Most Recently Relevant to Health Maintenance Results * HM COLONOSCOPY (09/20/2024 12:00 AM CDT) 09/20/2024 Provider Scan PROCEDURE/MINOR SURGICAL ORDERAB LES Final Result SCAN * EGD (09/20/2024 12:00 AM CDT) Anatomical Region Laterality Modality Endoscopy 09/20/2024 Provider Scan GI PROCEDURE ORDERABLES Final Re sult * HEMOGLOBIN A1C W/ ESTIMATED GLUCOSE (08/13/2024 10:01 AM CDT) HGB-A1C 4.7 4.0 - 6.0 % 08/13/2024 5:23 PM CDT [facility] Est Average Glucose 88.2 mg/dL 08/13/2024 5:23 PM CDT [facility] Blood Venipuncture / Unknown 08/13/2024 10:01 AM CDT 08/13/2024 10:01 AM CDT Narrative [facility] - 08/13/2024 5:23 PM CDT HEMOGLOBIN A1C: DIABETIC PATIENTS: WELL-CONTROLLED: 6.2 - 7.0 INTERMEDIATE WELL-CONTROLLED: 7.0 - 9.0 POORLY-CONTROLLED: >9.0 Specimens containing greater than 5% of Hemoglobin F may result in lower than expected % HbA1C results. Gwen Calero PAC CHEMISTRY ORDERAB LES Final Result [facility] [address] [place] [address] * (ABNORMAL) CBC WITH AUTO DIFFERENTIAL (08/13/2024 10:01 AM CDT) WBC 7.09 4.00 - 12.00 10(3)/mcL 08/13/2024 5:20 PM CDT [facility] RBC 4.85 3.80 - 5.30 10(6)/mcL 08/13/2024 5:20 PM CDT [facility] HEMOGLOBIN (HGB) 16.5(H) 12.0 - 15.8 g/dL 08/13/2024 5:20 PM CDT [facility] HEMATOCRIT (HCT) 48.0(H) 36.0 - 47.0 % 08/13/2024 5:20 PM CDT [facility] MCV 99.0(H) 82.0 - 96.0 fL 08/13/2024 5:20 PM CDT [facility] MCH 34.0 26.0 - 34.0 pg 08/13/2024 5:20 PM CDT [facility] MCHC 34.4 31.0 - 36.0 g/dL 08/13/2024 5:20 PM CDT [facility] PLATELET COUNT 281 140 - 440 10(3)/mcL 08/13/2024 5:20 PM CDT [facility] RDW 12.0 11.8 - 15.5 % 08/13/2024 5:20 PM CDT [facility] MPV 9.7 9.7 - 12.4 fL 08/13/2024 5:20 PM CDT [facility] NEUTROPHILS 65.0 47.0 - 73.0 % 08/13/2024 5:20 PM CDT [facility] LYMPHOCYTES 25.2 18.0 - 42.0 % 08/13/2024 5:20 PM CDT [facility] MONOCYTES 6.6 4.0 - 12.0 % 08/13/2024 5:20 PM CDT [facility] EOSINOPHILS 2.5 0.0 - 5.0 % 08/13/2024 5:20 PM CDT [facility] BASOPHILS 0.7 0.0 - 1.0 % 08/13/2024 5:20 PM CDT [facility] ABSOLUTE NEUTROPHILS 4.60 1.60 - 7.70 10(3)/mcL 08/13/2024 5:20 PM CDT [facility] ABSOLUTE LYMPHOCYTES 1.79 1.30 - 3.20 10(3)/mcL 08/13/2024 5:20 PM CDT [facility] ABSOLUTE MONOCYTES 0.47 0.20 - 1.00 10(3)/mcL 08/13/2024 5:20 PM CDT [facility] ABSOLUTE EOSINOPHIL 0.18 0.00 - 0.40 10(3)/mcL 08/13/2024 5:20 PM CDT [facility] ABSOLUTE BASOPHILS 0.05 0.00 - 0.10 10(3)/mcL 08/13/2024 5:20 PM CDT [facility] NRBC PER 100 WBC 0 08/14/19 5:20 PM CDT [facility] Blood Venipuncture / Unknown 08/13/2024 10:01 AM CDT 08/13/2024 10:01 AM CDT Gwen SAM HEMATOLOGY ORDERA BLES Final Result [facility] [address] [place] [address] * THYROID STIMULATING HORMONE (TSH) (08/13/2024 10:01 AM CDT) Pathologist [facility] TSH 1.312 0.300 - 5.000 mIU/L 08/13/2024 5:57 PM CDT [facility] Blood Venipuncture / Unknown 08/13/2024 10:01 AM CDT 08/13/2024 10:01 AM CDT Gwen SAM CHEMISTRY ORDERAB LES Final Result [facility] [address] [place] [address] * (ABNORMAL) LIPID PANEL (08/13/2024 10:01 AM CDT) CHOLESTEROL 173 <200 mg/dL 08/13/2024 5:40 PM CDT [facility] TRIGLYCERIDES 151(H) <150 mg/dL 08/13/2024 5:40 PM CDT [facility] HDL CHOLESTEROL 32(L) >40 mg/dL 5:40 PM CDT [facility] LDL 111 <130 mg/dL 08/13/2024 5:40 PM CDT [facility] VLDL 30 10 - 50 mg/dL 08/13/2024 5:40 PM CDT [facility] CHOL/HDL RATIO 5.4(H) 0.0 - 4.4 08/13/2024 5:40 PM CDT [facility] NON-HDL CHOLESTEROL 141(H) <130 mg/dL 08/13/2024 5:40 PM CDT [facility] IS THE PATIENT REQUIRED TO BE FASTING? Yes 08/13/2024 5:40 PM CDT [facility] HAS THE PATIENT BEEN FASTING? Yes 08/13/2024 5:40 PM CDT [facility] Blood Venipuncture / Unknown 08/13/2024 10:01 AM CDT 08/13/2024 10:01 AM CDT Gwen Calero PAC CHEMISTRY ORDERAB LES Final Result [facility] [address] [place] [address] * HEPATITIS C ANTIBODY (08/13/2024 10:01 AM CDT) hepatitis C antibody 0.09 <1 S/CO 08/13/2024 10:54 PM CDT [facility] Comment: Signal/Cutoff ratio < 0.79 is Nondetected Signal/Cutoff ratio 0.80-0.99 is Grayzone Signal/Cutoff ratio > 0.99 is Detected Supplemental assays are recommended if signal/cutoff ratio is >/=1.00. Signal/cutoff ratio result >/= 5.00 is 97% predictive of positivity for recombinant immunoblot assay (RIBA) and will be reported to the [place] Department of Public Health as required. Blood Venipuncture / Unknown 08/13/2024 10:01 AM CDT 08/13/2024 10:01 AM CDT Gwen Monzonarlin PAC CHEMISTRY ORDERAB LES Final Result [facility] [address] [place] [address], * (ABNORMAL) CMP (COMPREHENSIVE METABOLIC PANEL) (08/13/2024 10:01 AM CDT) SODIUM 141 136 - 145 mmol/L 08/13/2024 5:40 PM CDT [facility] POTASSIUM 4.1 3.5 - 5.1 mmol/L 08/13/2024 5:40 PM CDT [facility] CHLORIDE 107 98 - 107 mmol/L 08/13/2024 5:40 PM CDT [facility] CO2, VENOUS 21(L) 22 - 30 mmol/L 08/13/2024 5:40 PM CDT [facility] ANION GAP 17.1 <18.0 mmol/L 08/13/2024 5:40 PM CDT [facility] GLUCOSE 89 70 - 99 mg/dL 08/13/2024 5:40 PM CDT [facility] BUN 9 5 - 18 mg/dL 08/13/2024 5:40 PM CDT [facility] CREATININE, BLOOD 0.82 0.60 - 1.00 mg/dL 08/13/2024 5:40 PM CDT [facility] BUN/CREATININE RATIO 11(L) 12 - 20 ratio 08/13/2024 5:40 PM CDT [facility] TOTAL PROTEIN 7.7 6.0 - 8.0 g/dL 08/13/2024 5:40 PM CDT [facility] ALBUMIN 4.7 3.5 - 5.0 g/dL 08/13/2024 5:40 PM CDT [facility] A/G RATIO 1.6 1.0 - 2.2 08/13/2024 5:40 PM CDT [facility] CALCIUM 9.8 8.7 - 10.5 mg/dL 08/13/2024 5:40 PM CDT [facility] T BILI 0.6 0.2 - 1.2 mg/dL 08/13/2024 5:40 PM CDT [facility] SGOT (AST) 31 <43 U/L 08/13/2024 5:40 PM CDT [facility] SGPT (ALT) 33 <56 U/L 08/13/2024 5:40 PM CDT [facility] ALKALINE PHOSPHATASE 50 40 - 150 U/L 08/13/2024 5:40 PM CDT [facility] IS THE PATIENT REQUIRED TO BE FASTING? No 08/13/2024 5:40 PM CDT [facility] GFR, ESTIMATED >60 >=60 08/13/2024 5:40 PM CDT [facility] Comment: Creatinine Clearance is the preferred criteria for selecting drug dose adjustments in renally impaired patients. The GFR is provided as additional pertinent clinical information. GFR is reported in mL/min/1.73 sq m. Calculation based on the Chronic Kidney Disease Epidemiology Collaboration (CKD- EPI) equation refit without adjustment for race. GFR, EST. >60 >=60 025 5:40 PM CDT [facility] GFR, EST. NONAFRICAN >60 >=60 08/13/2024 5:40 PM CDT [facility] Blood Venipuncture / Unknown 08/13/2024 10:01 AM CDT 08/13/2024 10:01 AM CDT Gwen Calero PAC CHEMISTRY ORDERAB LES Final Result [facility] [address] [place] [address] * UR TOXICOLOGY SCREEN (08/13/2024 12:00 AM CDT) 08/13/2024 Gwen Calero PAC URINE ORDERABLES Final Result SCAN * PATHOLOGY CYTOLOGY CLASSIFIED AD TAKER (09/20/2022 12:00 AM CDT) 09/20/2022 Provider Scan PATHOLOGY/CYTOLOGY ORDERABLES Fi nal Result SCAN from Last 3 Months or Most Recently Relevant to Health Maintenance Insurance MEDICAID [place] Advance Directives * Full [...] measures to stabilize the patient. Care Teams Senior Ssis Developer Relationship Specialty Start Date End Date Gwen Calero PAC [address] [place] [address] PCP - General Physician Fresh Foods Technician 06/12/21 Adam Alejo DO Gastroenterology 01/07/16 Johnna Valente APRN, DREDGE OPERATOR Nurse Practitioner Advanced Practice Nurse 01/07/16 Marisela Chaidez, MICHAEL, DREDGE OPERATOR Nurse Practitioner Advanced Practice Nurse 01/07/16 Johnathan Pugh MD [address] [place] [address] Obstetrics & Gynecology 08/13/19
--- OUTSIDE RECORDS SUMMARY | 2024-11-06 19:05 | XMS_ITS | Referral Summary ---
Author Organization [facility] Address [address] [place] [address] Care Team Providers Care Nailhead Setter Name Role Phone Gwen Calero Primary Care Prov ider Encounters Date Type Department Care Team Description 5 Results Follow-Up [facility] Gastroenterology at [address] [place] [address] Mariano Feliz MD Surgical pathology 5 Orders Only [facility] Gastroenterology at [address] [place] [address] Mariano Feliz MD 5 1:36 PM CDT Anesthesia Event [address] [address] Yobani Uribe MD 5 12:00 PM CDT - 5 1:00 PM CDT Surgery [address] [address] Mariano Feliz MD ESOPHAGOGASTRODUODENOSCOPY BIOPSY 5 11:08 AM CDT - 5 2:51 PM CDT Hospital Encounter [address] [address] Yves Krishna MD Karadaghy, Ahmad A., MD Epigastric pain; Diarrhea, unspecified type Discharge Disposition: Discharge to home or self care 5 Orders Only [facility] Gastroenterology at [place] [address] [facility] [address] [place] [address] Yves Krishna MD from Last 3 Months Allergies No known active allergies Medications omeprazole [...] on file Legal Sex Female 3:43 AM BUS OR TRUCK GARAGE MECHANIC Gender Identity Not on file Sexual Orientation [...] 09/20/2024 11:40 AM CDT Plan of Treatment Not on file Procedures Procedure Name Priority Date/Time Associated Diagnosis [...] HEPATITIS C AB Routine 06/16/2016 11:15 AM BUS OR TRUCK GARAGE MECHANIC from Last 3 Months or Most Recently Relevant to Health Maintenance Results * Surgical pathology (09/20/2024 2:04 PM CDT) Tissue (Gastric/Stomach biopsy) 09/20/2024 1:43 PM CDT Tissue specimen (specimen) (Colon, Biopsy) 09/20/2024 1:53 PM CDT Tissue specimen (specimen) (Polyp(s), colon/colorectal, esophageal, gastric) 09/20/2024 1:53 PM CDT Narrative PATHOLOGY [facility] - 09/25/2024 3:49 PM CDT EPIC results best viewed via link to PDF [facility] Department of Pathology [address] [place] [address] Note to Patients: This report may contain [...] Final Report Patient Name: CHELSIE CONSTANTINO Address: [address] [place] [id number] Gender: F : 1985 (Age: 39) Service: Gastro Location: [facility] Hospital #: [id number] Patient Type: [facility] Taken: 09/20/2024 Received: 09/21/2024 Accessioned: 09/21/2024 Reported: [...] No evidence of dysplasia or malignancy. Marshall Brooks, MD Report Electronically Reviewed and Signed Out [...] determined by the Surgical Pathology Department at [facility] as part of an ongoing quality cloth tester program and in compliance with federally mandated [...] characteristics determined by the Surgical Pathology Department [facility]. It has not been cleared or approved by the U. S. Food and Drug Administration. Note for decalcified specimens: This assay has not been validated on decalcified tissues. Results should be interpreted with caution given the possibility of false negativity on decalcified specimens Mariano Feliz MD LAB PATHOLOGY ORDERABLES F inal Result PATHOLOGY [facility] [address] [place], [place] [id number] * EGD (09/20/2024 11:19 AM CDT) Anatomical Region Laterality Modality Other Narrative Procedure Note Mariano Feliz MD - 09/20/2024 11:19 AM CDT [facility] Patient Name: Chelsie Constantino Procedure Date: 09/20/2024 11:19 AM Date of : 1985 Admit Type: Outpatient Age: 39 Gender: Female Attending MD: Mariano Feliz M.D. Room: [facility] ENDOSCOPY ROOM 1 Note Status: Finalized Patient [...] passed under direct vision. The Endoscope [id number] was introduced through the mouth, and advanced [...] 11:19 AM Procedure Code(s): --- Professional --- 58315, Esophagogastroduodenoscopy, flexible, transoral; with biopsy, single or multiple Diagnosis Code(s): --- Professional --- K29.50, Unspecified chronic gastritis without bleeding R10.10, Upper abdominal pain, unspecified R19.7, Diarrhea, unspecified CPT copyright 2020 [employer]. All rights reserved. The codes documented in this report are preliminary and upon commercial subcontractor reviewmay be revised to meet current compliance requirements. Recognized by the [employer] for promoting quality [...] Female Attending MD: Mariano Feliz M.D. Room: [facility] ENDOSCOPY ROOM 1 Note Status: Finalized Patient [...] under direct vision. The Pediatric Colonoscope [id number] was introducedthrough the anus and advanced to [...] 11:18 AM Procedure Code(s): --- Professional --- 07434, Colonoscopy, flexible; with removal of tumor(s), polyp(s), or other lesion(s) by snare technique 92290, 59, Colonoscopy, flexible; with biopsy, single or multiple Diagnosis Code(s): --- Professional --- K64.8, Other hemorrhoids D12.4, Benign neoplasm of descending colon R10.10, Upper abdominal pain, unspecified R19.7, Diarrhea, unspecified CPT copyright 2020 [employer]. All rights reserved. The codes documented in this report are preliminary and upon commercial subcontractor reviewmay be revised to meet current compliance requirements. Recognized by the [employer] for promoting quality in endoscopy us Mariano Feliz MD ENDOSCOPY PROCEDURES Final Result * Pap IG, HPV-hr (06/02/2018) Endocervical 06/02/2018 us Radha Sun NP LAB PATHOLOGY ORDERABLES Final Result EXTERNAL LAB * Serum Hepatitis C ab (06/16/2016 11:15 AM BUS OR TRUCK GARAGE MECHANIC) HCV ab Negative Negative CDR HISTOR ICAL RESULTS Serum 06/16/2016 11:1 5 AM BUS OR TRUCK GARAGE MECHANIC us Andrea Addison MD LAB BLOOD ORDERABLES Final Result CDR HISTORICAL RESULTS from Last 3 Months or Most Recently Relevant to Health Maintenance Insurance [facility] Advance Directives For more information, please contact: [phone] * Full Code (Latest Code Status on File) Date Activated Date Inactivated Comments 09/20/2024 11:28 AM 09/20/2024 6:57 PM * Full Code Date Activated Date Inactivated Comments 09/20/2024 11:28 AM 09/20/2024 11:28 AM Care Teams Nailhead Setter Relationship Specialty Start Date End Date Gwen Calero PA PCP - General Neurosurgery 06/03/22
--- OUTSIDE RECORDS SUMMARY | 2024-11-06 19:05 | XMS_ITS | Encounter Summary ---
Author Organization [facility] Address [address] [place] [address] Phone Care Team Providers Care Parking Lot Manager Name Role Phone Adam Alejo DO Unavailable [phone] Johnna Lund COUNTY ENGINEER, FILLER WIPER Unavailable Marisela Chaidez COUNTY ENGINEER, FILLER WIPER Unavailable oJhnathan Pugh MD Unavailable [phone] Gwen Calero PAC Primary Care Pro vider Reason for Visit * Reason Comments Medication Refill Encounter Details Date Type Department Care Team (Late st Contact Info) Description 10/07/2022 Refill [facility] - Internal Medicine - [place] [address] [place] [id number] Gwen Calero, PAC [address] [place] [address] Medication Refill Social History Tobacco Use Types [...] Dept 09/23/22 Office Visit Gwen Calero PAC [facility] [place] 06/18/22 Office Visit Gwen Calero PAC [facility] [place] 03/26/22 Office Visit Gwen Calero PAC [facility] [place] 01/27/22 Office Visit Gwen Calero PAC [facility] [place] Showing recent visits within past 365 days and meeting all other requirements Future Appointments Date Type Provider Dept 10/29/22 Appointment Gwen Calero PAC [facility] [place] Showing future appointments within next 90 days and meeting all other requirements documented in this encounter Plan of Treatment Upcoming Encounters Date Type Department Care Team (Late st Contact Info) Description 11/14/2024 11:00 AM CDT [facility] [place] [address] [id number] Gwen Calero, PAC [address] [place] [address] documented as of this encounter Goals Goal [...] Date Gwen Calero, PAC [address] [place] [address] PCP - General Physician Hedge Fund Manager 06/12/21 Adam Alejo DO Gastroenterology 01/07/16 Johnna Valente, COUNTY ENGINEER, FILLER WIPER Nurse Practitioner Advanced Practice Nurse 01/07/16 Marisela Chaidez, COUNTY ENGINEER, FILLER WIPER Nurse Practitioner Advanced Practice Nurse 01/07/16 Johnathan Pugh MD [address] [facility] [address] [place] [address] Obstetrics & Gynecology 08/13/19 documented as of this encounter
--- OUTSIDE RECORDS SUMMARY | 2024-11-06 19:05 | XMS_ITS | Clinical Summary ---
Author Organization [facility] Address [address] [place] [address] Care Team Providers Care Riverboat Master Name Role Phone Andrea Addison MD Unavailable Unavailab le Source Comments [facility],non-owned Affiliates and Associated Physician Practices is amultiple site organization consisting of ambulatory clinics and hospital sitesin [place], [place], [place]. This disclosure is being madepursuant to the Care Everywhere program and may not contain all information available regarding this patient. Last updated 18.[facility] Jini Social History Tobacco Use Types Packs/Day Years Used Date Smoking Tobacco: Never Assessed Comments No Sex and Gender Information Value Date Recorded Sex Assigned at Not on file Legal Sex Female 11:22 AM CDT Gender Identity Not on file Sexual Orientation Not on file Plan of Treatment Health Maintenance Due Date Last Done Comments PAP SMEAR 1985 HIV SCREENING 2000 HEPATITIS C SCREENING 06/17/2003 DTAP/TDAP/TD VACCINES (1 - Tdap) 2004 HEPATITIS B VACCINE (1 of 3 - 19+ 3-dose series) 2004 COVID-19 VACCINE ( - 2023-2 5 season) 2024 DEPRESSION SCREENING 06/06/2024 INFLUENZA VACCINE (Season Ended) 2025 ZOSTER VACCINE (1 of 2) 2035 HIB VACCINE Aged Out No longer eligi ble based on patient's age to complete this topic HPV VACCINE Aged Out No longer eligi ble based on patient's age to complete this topic MENINGOCOCCAL (Group B) VACC INE SHARED DECISION-MAKING Aged Out No longer eligibl e based on patient's age to complete this topic MENINGOCOCCAL GROUPS A/C/Y/W VACCINE Aged Out No longer eligible b ased on patient's age to complete this topic PNEUMOCOCCAL VACCINE Aged Out No long er eligible based on patient's age to complete this topic Insurance [facility] Care Teams Riverboat Master Relationship Specialty Start Date End Date Adnrea Addison MD Medical Staff Assistant Obstetrics and Gynecology 12/22/16
--- OUTSIDE RECORDS SUMMARY | 2024-11-06 19:05 | XMS_ITS | Encounter Summary ---
Author Organization [facility] Address [address] [place] [address] Phone Care Team Providers Care Grain Weigher Name Role Phone Adam Alejo DO Unavailable [phone] Johnna Lund EXPERIMENTAL WORKER, VERIFIER OPERATOR Unavailable Marisela Chaidez EXPERIMENTAL WORKER, VERIFIER OPERATOR Unavailable Johnathan Pugh MD Unavailable [phone] Gwen Calero PAC Primary Care Pro vider Reason for Visit * Reason Comments Medication Refill Encounter Details Date Type Department Care Team (Late st Contact Info) Description 10/18/2023 Refill [facility] - Internal Medicine - [place] [address] [place] [id number] Gwen Calero, PAC [address] [facility] [place] [place] [address] Medication Refill Social History Tobacco Use Types Packs/Day Years Used Date Smoking Tobacco: Former Cigarettes Q uit: 05/08/2016 Passive Smoke Exposure: Past Smokeless Tobacco: Never Comments:occasional smoker Alcohol Use Standard Drinks/Week Comments Yes 6 (1 standard drink = 0.6 oz pure alcohol) drinks three bottles of wine a week [facility] Utilities Answer Date Recorded In the past 12 months has [employer], gas, oil, or water [email or web address] threatened to shut off services in your [...] often do you attend chur ch or buddhism services? More than 4 times per year 06/10/2023 Do you belong to any clubs o r organizations such as scientology groups, unions, fraternal or athletic groups, or [...] Total Score - Questions 1-9 12 01/05 [facility] Occupational Stress Questionnaire Answer [...] place to sleep or slept in a group home (including now)? Patient declined 06/10/2023 Education Answer [...] [facility] - Internal Medicine - [place] [address] [place] [id number] Gwen Calero, [facility] [address] [place] [address] documented as of this encounter Goals Goal [...] documented as of this encounter Care Teams Grain Weigher Relationship Specialty Start Date End Date Gwen Calero PAC [address] [place] [address] PCP - General Physician Pattern Developer 06/12/21 Adam Alejo DO Gastroenterology 01/07/16 Johnna Valente APRN, VERIFIER OPERATOR Nurse Practitioner Advanced Practice Nurse 01/07/16 Marisela Chaidez, MICHAEL, VERIFIER OPERATOR Nurse Practitioner Advanced Practice Nurse 01/07/16 Johnathan Pugh MD [address] [place] [address] Obstetrics & Gynecology 08/13/19 documented as of this encounter
--- OUTSIDE RECORDS SUMMARY | 2024-11-06 19:05 | XMS_ITS | Encounter Summary ---
Author Organization [facility] Address [address] [place] [address] Phone Care Team Providers Care Stave Log Cut Off Saw Operator Name Role Phone Adam Alejo DO Unavailable [phone] Johnna Lund NARROW FABRIC CALENDERER, CASCADE OPERATOR Unavailable [phone] Marisela Chaidez NARROW FABRIC CALENDERER, CASCADE OPERATOR Unavailable Johnathan Pugh MD Unavailable [phone] Gwen Calero PAC Primary Care Pro vider Reason for Visit * Reason Comments Medication Refill Encounter Details Date Type Department Care Team (Late st Contact Info) Description 08/02/2022 Refill [facility] - Internal Medicine - [place] [address] [place] [id number] Gwen Calero, PAC [address] [place] [address] Medication Refill Social History Tobacco Use Types [...] Office Visit Gwen Calero PAC [facility] [place] 03/26/22 Office Visit Gwen Calero, CECY [facility] [place] 01/27/22 Office Visit Gwen Calero, CECY [facility] [place] Showing recent visits within past 365 days and meeting all other requirements Future Appointments Date Type Provider Dept 09/17/22 Appointment Gwen Calero, CECY [facility] [place] Showing future appointments within next 90 days and meeting all other requirements [facility] documented in this encounter Plan of Treatment Upcoming Encounters Date Type Department Care Team (Late st Contact Info) Description 11/14/2024 11:00 AM CDT [facility] - [facility] - [place] [address] [place] [address] Gwen Calero PAC [address] [place] [address] documented as of this encounter Goals Goal [...] documented as of this encounter Care Teams Stave Log Cut Off Saw Operator Relationship Specialty Start Date End Date Gwen Calero PAC [address] [place] [address] PCP - General Physician Magazine Publisher 06/12/21 Adam Alejo DO Gastroenterology 01/07/16 Johnna Valente APRN, CASCADE OPERATOR Nurse Practitioner Advanced Practice Nurse 01/07/16 Marisela Chaidez APRN, CASCADE OPERATOR Nurse Practitioner Advanced Practice Nurse 01/07/16 Johnathan Pugh MD [address] [place] [address] Obstetrics & Gynecology 08/13/19 documented as of this encounter
--- OUTSIDE RECORDS SUMMARY | 2024-11-06 19:05 | XMS_ITS | Encounter Summary ---
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
--- OUTSIDE RECORDS SUMMARY | 2024-11-06 19:05 | XMS_ITS | Data Portability ---
Author Organization [place] - [facility] Address [address] [place] [address] Assessment No assessment recorded. Plan of Treatment Reminders Order Date Submit Date Provider Last Modified By Organization Details Last Modified Time Details Appointments None recorded. Lab unlisted lab - [facility] swab plus, MICH 2023 024 [facility] (Lab), [address], [place], [address], 4 14:30:34 17-hydroxyp rogesterone , QN, serum 2022 023 [facility] (Lab), [address], [place], [address], 3 19:27:48 Referral None recorded. Procedures None recorded. Surgeries hysteroscop y, surgical, with biopsy of endometrium and/or polypectomy (SURG) [email or web address] [place] [address], [facility] [address], [place], [address], 4 17:00:16 Imaging US, pelvis 2023 024 [email or web address] [facility], [address], [address], [place], [address], 4 21:38:40 US, transvagina l 2023 024 [email or web address] [facility], [address], [address], [place], [address], 4 21:38:40 US, pelvis, complete 2022 023 BRYAN [facility], [address], [address], [place], [address], 4 05:01:45 Medication Orders metronidazo le 500 mg tablet 2023 024 [id number], [address], [place], [place], [id number], 4 09:47:48 Patient TargetsNo targets recorded. Patient InstructionsNo instructions recorded. Reason for Referral None Reported. Results Created Date Observation Date Name Description Value Unit Range Abnormal Flag Note LastModifiedBy Organization Detail LastModifiedTime 03/30/2003/30/2023 CT/GC AND TRICH OMONA S VAGIN CALEB (RRNA ), URINE chlamydia trachomatis, PCR Negati ve negati ve Not Available [facility] (Lab) [address], [place], [address], 03/31/2023 16:06:42 03/30/2003/30/2023 CT/GC AND TRICH OMONA S VAGIN CALEB (RRNA ), URINE neisseria gonorrhoeae, PCR Negati ve negati ve Not Available [facility] (Lab) [address], [place], [address], 03/31/2023 16:06:42 03/30/2003/30/2023 CT/GC AND TRICH OMONA S VAGIN CALEB (RRNA ), URINE trichomonas vaginalis ribosomal RNA (rrna) Negati ve negati ve Not Available [facility] (Lab) [address] , [place], [address], 03/31/2023 16:06:42 03/30/20 23 03/30/2023 CBC W/DIF F WBC 7.9 10'3/ uL 3.6-10 .2 Not Available [facility] (Lab) [address], [place], [address], 04/05/2023 19:27:45 03/30/2003/30/2023 CBC W/DIF F RBC 4.83 10'6/ uL (based on docume nted legal sex) 4.10-5 .30 Not Available [facility] (Lab) [address], [place], [address], 04/05/2023 19:27:45 03/30/2003/30/2023 CBC W/DIF F HGB 15.4 g/dL (based on docume nted legal sex) 11.9-1 5.8 Not Available [facility] (Lab) [address], [place], [address], 04/05/2023 19:27:45 03/30/2003/30/2023 CBC W/DIF F HCT 45.9 % (based on docume nted legal sex) 37.4-4 8.3 Not Available [facility] (Lab) [address], [place], [address], 04/05/2023 19:27:45 03/30/2003/30/2023 CBC W/DIF F MCV 95.0 fL 82.0-9 9.0 Not Available [facility] (Lab) [address], [place], [address], 04/05/2023 19:27:45 03/30/2003/30/2023 CBC W/DIF F MCH 31.9 pg 27.0-3 3.0 Not Available [facility] (Lab) [address], [place], [address], 04/05/2023 19:27:45 03/30/2003/30/2023 CBC W/DIF F MCHC 33.6 g/dL 32.0-3 6.0 Not Available [facility] (Lab) [address], [place], [address], 04/05/2023 19:27:45 03/30/20 23 03/30/2023 CBC W/DIF F RDW 12.0 % 11.0-1 5.0 Not Available [facility] (Lab) [address], [place], [address], 04/05/2023 19:27:45 03/30/20 23 03/30/2023 CBC W/DIF F plt 252 10'3/ uL 150-45 0 Not Available [facility] (Lab) [address], [place], [address], 04/05/2023 19:27:45 03/30/20 23 03/30/2023 CBC W/DIF F MPV 9.7 fL 9.8-12 .7 low Not Available [facility] (Lab) [address], [place], [address], 04/05/2023 19:27:45 03/30/20 23 03/30/2023 CBC W/DIF F NRBC's 0.0 % 0 Not Available [facility] (Lab) [address], [place], [address], 04/05/2023 19:27:45 03/30/20 23 03/30/2023 CBC W/DIF F absolute NRBCs 0.0 10'3/ uL 0 Not Available [facility] (Lab) [address], [place], [address], 04/05/2023 19:27:45 03/30/20 23 03/30/2023 CBC W/DIF F neutrophils 62.4 % 37.0-7 2.0 Not Available [facility] (Lab) [address], [place], [address], 04/05/2023 19:27:45 03/30/20 23 03/30/2023 CBC W/DIF F lymphocytes 25.1 % 16.0-4 8.0 Not Available [facility] (Lab) [address], [place], [address], 04/05/2023 19:27:45 03/30/20 23 03/30/2023 CBC W/DIF F monocytes 7.5 % 4.0-14 .0 Not Available [facility] (Lab) [address], [place], [address], 04/05/2023 19:27:45 03/30/20 23 03/30/2023 CBC W/DIF F eosinophils 4.3 % 0.0-9. 0 Not Available [facility] (Lab) [address], [place], [address], 04/05/2023 19:27:45 03/30/20 23 03/30/2023 CBC W/DIF F basophils 0.4 % 0.0-2. 0 Not Available [facility] (Lab) [address], [place], [address], 04/05/2023 19:27:45 03/30/20 23 03/30/2023 CBC W/DIF F immature granulocytes 0.3 % no define d refere nce range Not Available [facility] (Lab) [address], [place], [address], 04/05/2023 19:27:45 03/30/20 23 03/30/2023 CBC W/DIF F absolute neutrophils 4.9 10'3/ uL 1.1-6. 0 Not Available [facility] (Lab) [address], [place], [address], 04/05/2023 19:27:45 03/30/20 23 03/30/2023 CBC W/DIF F absolute lymphocytes 2.0 10'3/ uL 0.7-3. 4 Not Available [facility] (Lab) [address], [place], [address], 04/05/2023 19:27:45 03/30/20 23 03/30/2023 CBC W/DIF F absolute monocytes 0.6 10'3/ uL 0.3-1. 0 Not Available [facility] (Lab) [address], [place], [address], 04/05/2023 19:27:45 03/30/20 23 03/30/2023 CBC W/DIF F absolute eosinophils 0.3 10'3/ uL 0.0-0. 6 Not Available [facility] (Lab) [address], [place], [address], 04/05/2023 19:27:45 03/30/20 23 03/30/2023 CBC W/DIF F absolute basophils 0.0 10'3/ uL 0.0-0. 1 Not Available [facility] (Lab) [address], [place], [address], 04/05/2023 19:27:45 03/30/20 23 03/30/2023 CBC W/DIF [...] resul ts are expec breana. Not Available [facility] (Lab) [address], [place], [address], 04/05/2023 19:27:45 03/30/2003/30/2023 LIPID PANEL ,AMA (LDL- CALC) total cholesterol 141 mg/dL 0-199 Not Available [facility] (Lab) [address], [place], [address], 04/05/2023 19:27:46 03/30/2003/30/2023 LIPID PANEL ,AMA (LDL- CALC) triglyceride s 132 mg/dL 0.00-1 50.00 NCEP Refer ence Value s for Trigl yceri cristo: Edelmira l: <150 mg/dL Borde rline High: 150 - 199 mg/dL High: 200 - 499 mg/dL Very High: >/= 500 mg/dL Not Available [facility] (Lab) [address], [place], [address], 04/05/2023 19:27:46 03/30/2003/30/2023 LIPID PANEL ,AMA (LDL- CALC) HDL cholesterol 29 mg/dL >40 low Not Available [facility] (Lab) [address], [place], [address], 04/05/2023 19:27:46 03/30/2003/30/2023 LIPID PANEL ,AMA (LDL- [...] mg/dL , HDL <40 mg/dL Not Available [facility] (Lab) [address], [place], [address], 04/05/2023 19:27:46 03/30/2003/30/2023 LIPID PANEL ,AMA (LDL- CALC) non-HDL cholesterol 112 mg/dL no refere nce range A reaso nable goal for non-H DL melissa stero l is one that is 30 mg/dL highe r than the LDL melissa stero l goal. Not Available [facility] (Lab) [address], [place], [address], 04/05/2023 19:27:46 03/30/2003/30/2023 LIPID PANEL ,AMA (LDL- CALC) chol/HDL ratio 4.9 . 0.0-5. 0 On September 28, 2022, [facility] labor kamila srinivasan ed the equat [...] and Low-D ensit y Lipop rotei n Meilssa stero l Accur acy. Circu latio n. 2017Jun 07;137 (1):1 0-19. Not Available [facility] (Lab) [address], [place], [address], 04/05/2023 19:27:46 03/30/20 23 03/30/2023 CMP(C OMPRE HENSI VE METAB OLIC PANEL ) sodium 137 mmol/ L 133-14 6 Not Available [facility] (Lab) [address], [place], [address], 04/05/2023 19:27:46 03/30/20 23 03/30/2023 CMP(C OMPRE HENSI VE METAB OLIC PANEL ) potassium 4.1 mmol/ L 3.5-5. 1 Not Available [facility] (Lab) [address], [place], [address], 04/05/2023 19:27:46 03/30/20 23 03/30/2023 CMP(C OMPRE HENSI VE METAB OLIC PANEL ) chloride 105 mmol/ L 98-107 Not Available [facility] (Lab) [address], [place], [address], 04/05/2023 19:27:46 03/30/20 23 03/30/2023 CMP(C OMPRE HENSI VE METAB OLIC PANEL ) carbon dioxide 22 mmol/ L 21-31 Not Available [facility] (Lab) [address], [place], [address], 04/05/2023 19:27:46 03/30/20 23 03/30/2023 CMP(C OMPRE HENSI VE METAB OLIC PANEL ) anion gap 10 mmol/ L 4-13 Not Available [facility] (Lab) [address], [place], [address], 04/05/2023 19:27:46 03/30/20 23 03/30/2023 CMP(C OMPRE HENSI VE METAB OLIC PANEL ) blood urea nitrogen 14 mg/dL 7-25 Not Available [facility] (Lab) [address], [place], [address], 04/05/2023 19:27:46 03/30/20 23 03/30/2023 CMP(C OMPRE HENSI VE METAB OLIC PANEL ) creatinine 0.97 mg/dL 0.60-1 .30 Not Available [facility] (Lab) [address], [place], [address], 04/05/2023 19:27:46 03/30/20 23 03/30/2023 CMP(C OMPRE HENSI VE METAB OLIC PANEL ) egfrcr (CKD-epi 2020) 77 mL/mi n/1.7 3_m2 >=60 Not Available [facility] (Lab) [address], [place], [address], 04/05/2023 19:27:46 03/30/20 23 03/30/2023 CMP(C OMPRE HENSI VE METAB OLIC PANEL ) calcium 9.5 mg/dL 8.3-10 .5 Not Available [facility] (Lab) [address], [place], [address], 04/05/2023 19:27:46 03/30/20 23 03/30/2023 CMP(C OMPRE HENSI VE METAB OLIC PANEL ) glucose 93 mg/dL 70-100 Not Available [facility] (Lab) [address], [place], [address], 04/05/2023 19:27:46 03/30/20 23 03/30/2023 CMP(C OMPRE HENSI VE METAB OLIC PANEL ) protein, total 6.9 g/dL 6.4-8. 3 Not Available [facility] (Lab) [address], [place], [address], 04/05/2023 19:27:46 03/30/20 23 03/30/2023 CMP(C OMPRE HENSI VE METAB OLIC PANEL ) albumin 4.4 g/dL 3.5-5. 0 Not Available [facility] (Lab) [address] [place], [address], 04/05/2023 19:27:46 03/30/20 23 03/30/2023 CMP(C OMPRE HENSI VE METAB OLIC PANEL ) ALT 15 units /L 9-43 Not Available [facility] (Lab) [address], [place], [address], 04/05/2023 19:27:46 03/30/20 23 03/30/2023 CMP(C OMPRE HENSI VE METAB OLIC PANEL ) alkaline phosphatase 54 units /L 34-104 Not Available [facility] (Lab) [address], [place], [address], 04/05/2023 19:27:46 03/30/2003/30/2023 CMP(C OMPRE HENSI VE METAB OLIC PANEL ) AST 16 units /L 13-39 Not Available [facility] (Lab) [address], [place], [address], 04/05/2023 19:27:46 03/30/2003/30/2023 CMP(C OMPRE HENSI VE METAB OLIC PANEL ) bilirubin, total 0.6 mg/dL 0.2-1. 2 Not Available [facility] (Lab) [address], [place], [address], 04/05/2023 19:27:46 03/30/2003/30/2023 MIRI TIN / IRON / TRANS MIRI N / TIBC iron 104 ug/dL 40-170 Not Available [facility] (Lab) [address], [place], [address], 04/05/2023 19:27:47 03/30/2003/30/2023 MIRI TIN / IRON / TRANS MIRI N / TIBC transferrin 317 mg/dL 200-36 0 Not Available [facility] (Lab) [address], [place], [address], 04/05/2023 19:27:47 03/30/2003/30/2023 MIRI TIN / IRON / TRANS MIRI N / TIBC ferritin 58.7 NG/mL 8.0-25 2.0 Not Available [facility] (Lab) [address], [place], [address], 04/05/2023 19:27:47 03/30/2003/30/2023 MIRI TIN / IRON / TRANS MIRI N / TIBC TIBC 444 ug/dL 250-45 0 Not Available [facility] (Lab) [address], [place], [address], 04/05/2023 19:27:47 03/30/2003/30/2023 MIRI TIN / IRON / TRANS MIRI N / TIBC iron saturation 23 % 20-55 Not Available [facility] (Lab) [address], [place], [address], 04/05/2023 19:27:47 03/30/2003/30/2023 TSH, REFLE X FREE T4 TSH 1.90 uIU/m L 0.30-5 .33 Not Available [facility] (Lab) [address], [place], [address], 04/05/2023 19:27:47 03/30/2003/30/2023 VITAM IN B12 / FOLAT E PANEL vitamin B12 259 pg/mL 180-91 4 Edelmira l Range : 180-9 14 pg/mL . Indet ermin ate Range : 145-1 80 pg/mL . Defic ient Range : <=145 pg/mL . Not Available [facility] (Lab) [address], [place], [address], 04/05/2023 19:27:47 03/30/2003/30/2023 VITAM IN B12 / FOLAT E PANEL folate, serum 3.7 NG/mL 6.0-20 .0 low Not Available [facility] (Lab) [address], [place], [address], 04/05/2023 19:27:47 03/30/2003/30/2023 VITAM IN D, 25-OH (TOTA L D2/D3 ) vitamin D, 25-hydroxy, total 26.8 NG/mL 30.0-1 00.0 low Sugge stive of Defic iency : <20 ng/mL Sugge stive of Insuf ficie ncy: 20-29 ng/mL Sugge stive of Suffi cienc y: 30-10 0 ng/mL Sugge stive of Toxic ity: >150 ng/mL Not Available [facility] (Lab) [address], [place], [address], 04/05/2023 19:27:48 03/30/2003/30/2023 HEMOG LOBIN A1C hemoglobin [...] >8.0% Actio n sugge sted Not Available [facility] (Lab) [address], [place], [address], 04/05/2023 19:27:48 03/30/2003/30/2023 17-OH PROGE STERO NE [...] ostic s/Jm christina SJC-S Catarina Geronimore ss: [address] [place] [address] Direc tor: Hawa okeefe MD,Ph D,IMER Not Available [facility] (Lab) [address], [place], [address], 04/05/2023 19:27:48 03/30/2003/30/2023 urina lysis , dipst ick pH 5 Not Available [address], [place], [address], 03/30/2023 09:57:33 03/30/2003/30/2023 urina lysis , dipst ick Specific [place] 1.020 Not Available [facility] [place] [address], [place], [address], 03/30/2023 09:57:33 10/27/19 24 10/27/2023 CT/GC AND TRICH OMONA S VAGIN CALEB (RRNA ), SWAB chlamydia trachomatis, PCR Negati ve negati ve Not Available [facility] (Lab) [address], [place], [address], 10/28/2023 15:25:08 10/27/19 24 10/27/2023 CT/GC AND TRICH OMONA S VAGIN CALEB (RRNA ), SWAB neisseria gonorrhoeae, PCR Negati ve negati ve Not Available [facility] (Lab) [address], [place], [address], 10/28/2023 15:25:08 10/27/19 24 10/27/2023 CT/GC AND TRICH OMONA S VAGIN CALEB (RRNA ), SWAB trichomonas vaginalis ribosomal RNA (rrna) Negati ve negati ve Not Available [facility] (Lab) [address], [place], [address], 10/28/2023 15:25:08 04/17/20 24 04/17/2024 WOMEN 'S HEALT H SWAB PLUS, MICH bacterial vaginosis (bv), tma Positi ve negati ve abnormal Not Available [facility] (Lab) [address], [place], [address], 04/18/2024 14:30:34 04/17/20 24 04/17/2024 WOMEN 'S HEALT H SWAB PLUS, MICH renee species, tma Negati ve negati ve Not Available [facility] (Lab) [address] [place], [address], 04/18/2024 14:30:34 04/17/20 24 04/17/2024 WOMEN 'S HEALT H SWAB PLUS, MICH renee glabrata, tma Negati ve negati ve Not Available [facility] (Lab) [address] [place], [address], 04/18/2024 14:30:34 04/17/20 24 04/17/2024 [facility] trichomonas vaginalis, tma Negati ve negati ve Not Available [facility] (Lab) [address] [place], [address], 04/18/2024 14:30:34 04/17/20 24 04/17/2024 [facility] MICH chlamydia trachomatis, PCR Negati ve negati ve Not Available [facility] (Lab) [address] [place], [address], 04/18/2024 14:30:34 04/17/20 24 04/17/2024 WOMEN 'S [...] ded in this panel . Not Available [facility] (Lab) [address], [place], [address], 04/18/2024 14:30:34 11/08/19 24 11/08/2023 US, pelvi s No observ ation record ed. [email or web address] [address], [place], [address], 11/08/2023 12:55:46 11/08/19 24 11/08/2023 US, trans vagin al No observ ation record ed. [email or web address] [facility] [address], [place], [address], 11/08/2023 12:55:36 11/08/19 24 11/08/2023 US, pelvi s No observ ation record ed. [email or web address], [facility], [place], [address], 11/16/2023 11:01:25 Result Notes None recorded. Procedures Surgical History Date Name Laterality Status Provider Name and Address Organization Details Recorded Time 11/17/19 Endometrial Ablation completed Mercedes Dumont [facility] 10/27/2023 10:15:40 11/17/19 LOOP ELECTRODE EXCISION PROCEDURE, SURGICAL (LEEP) (SURG) completed Rose Burks [facility] 11/17/2022 10:10:43 10/20/19 [facility]pos[facility] [address], [place], [address], [facility] 10/21/2022 09:41:59 10/20/19 23 Colposcopy completed Keke Meadows [facility] 11/08/2022 11:33:52 09/21/19 23 Date of Last Pap Smear completed Mercedes Dumont [facility] 10/19/2022 17:23:42 08/22/19 22 Colposcopy completed Morenita Zuleta, [facility]- [address], [place], [address], [facility] 08/21/2021 14:39:30 08/22/19 22 Colposcopy completed Blanca Cerrato [facility] 09/18/2022 10:11:24 08/22/19 22 Colposcopy completed Annabelle Gomez [facility] 08/21/2021 15:11:41 Imaging Results None recorded. [...] Updated DateTime 10/27/2023 161.93 cm 34.6 kg/m2 97377.47 g 135 mm[Hg] 91 mm[Hg] [facility] 10:09:08 Date Recorded Body height Body mass index (BMI) Body weight Systolic blood pressure Diastolic blood pressure Provider Name and Address Organization Details Last Updated DateTime 12/02/2023 161.93 cm 34.3 kg/m2 87966.73 g 136 mm[Hg] 88 mm[Hg] Audrey Ken [facility] 4 09:34:39 Date Recorded Body height Body mass index (BMI) Body weight Systolic blood pressure Diastolic blood pressure Provider Name and Address Organization Details Last Updated DateTime 03/30/2023 161.93 cm 32.9 kg/m2 06385.55 g 135 mm[Hg] 83 mm[Hg] Kekesena Meadows [facility] 3 09:34:04 Date Recorded Body height Body mass index (BMI) Body weight Systolic blood pressure Diastolic blood pressure Provider Name and Address Organization Details Last Updated DateTime 04/17/2024 161.93 cm 34.9 kg/m2 03444.66 g 131 mm[Hg] 93 mm[Hg] [facility] 4 09:46:12 Social History Question Answer Notes LastModified by Organizat ion Details LastModified Time Tobacco Smoking Status Never Smoker Annabelle Gomez [facility] 07/31/2021 14:19:56 Are You Blind Or Do You Have [...] Yes Information not available 07/31/2021 Do You Use Sunscreen Routinely? Yes Information not available 07/31/2021 Do You Have Difficulty Walking Or Climbing Stairs? No Information not available 07/31/2021 Sex: Unknown Functional Status Question Answer Note LastModified by Organizat ion Details LastModified Time Do you use any illicit or recreational drugs? No Information not available 07/31/2021 What is your level of alcohol consumption? Occasional Information not available 07/31/2021 Are you able to walk? YESWOREST Information not available 07/31/2021 Are you able to care for yourself? Yes Information n ot available 07/31/2021 Do you have difficulty dressing or bathing? No Information not available 07/31/2021 What is your exercise level? Occasional Information not available 07/31/2021 Mental Status Question Answer Note LastModified by Organization D etails LastModified Time Do you feel stressed (tense, restless, nervous, or anxious, or unable to sleep at night)? [id number] Information not available 07/31/2021 Family History Relationship Description Onset Age of this Age Resolved Age Notes LastModified by Organization Details LastModified Time Mother Hypercholest erolemia Not available 2021 14:19:10 Mother Hypertensive disorder Not available 2021 14:19:16 Maternal Grandfather Malignant neoplasm of lung Not available 2021 14:19:29 Medical [...] SNOMED-CT Code Diagnosis ICD10 Code Diagnosis Note [id number] [facility] [address] [address] 07/31/2021 13:59:35 07/31/2021 14:59:15 Gynecologic examination [id number] Z01.419 Take Calcium with Vitamin D 1200mg [...] isssues or questions Contracept ion care management [id number] Z30.9 Happy on Nuvaring & wishes to continue. [id number] [facility]ita [facility]uleta [facility] [address],[facility] [place] [address] 08/21/2021 13:54:19 08/21/2021 14:51:06 Atypical squamous cells of undetermined significance on cervical Papanicolaou smear [id number] R87.610 ASCUS cannot r/o HGSIL See procedure notes.Post -procedure instructio ns reviewed with understand ing verbalized .Will contact with results & next steps in plan of care. [id number] [facility] [address],[facility] [place] [address] 09/18/2022 10:15:23 09/20/2022 15:27:41 Gynecologic examination [id number] Z11.51 Z11.3 Z11.8 Take Calcium with Vitamin [...] Screen na Routine Labs ordered/PC P Menorrhagia [id number] N9 2.0 Endo ablation consult Upashkan US orderedUpd ate labs ordered [id number] Tomás Luo MD [facility] [address] [address] 09/23/2022 16:27:29 09/23/2022 17:25:42 Menorrhagia [id number] N92.0 [id number] Tomás Luo MD [facility] [address] [address] 09/30/2022 17:15:52 10/01/2022 14:56:09 Menorrhagia [id number] N92.0 This patient is a 37-year-ol d [...] decision to perform surgery. Female sterilization [id number] 39590 Z30.2 [id number] [facility] [address] [address] 10/19/2022 17:08:37 10/21/2022 16:22:57 Screening procedure [id number] Z13.9 Human lashaun llomavirus deoxyribonucleic acid detected, high risk on cervical specimen [id number] R87.810 (2022) PAP/HPV (ASCUS/+HR HPV) See procedure [...] g-abnormal -hpv-and-p ap-test-re sults/unde rstanding- cervical-c hanges.pdf [id number] Tomás Luo MD [facility] [address],[place] [address] 11/08/2022 11:16:29 11/08/2022 12:53:08 Dysplasia of cervix [id number] N87.9 Female sterilization [id number] Z30.2 Menorrhagia [id number] N9 2.0 this patient is a 37-year-ol d female with menorrhagi a, unwanted fertility cervical dysplasia. We have agreed formally procedure, laparoscop ic salpingect neil and endometria l ablation with hysterosco py. She understand s the risks, benefits And alternativ es. She has completed the informed consent process and is ready to proceed. [id number] Tomás Luo MD [facility] [address],[place] [address] 11/17/2022 10:13:38 11/17/2022 10:17:53 [id number] Tomás Luo MD [facility] [address],[place] [address] 11/24/2022 16:36:06 11/24/2022 17:52:44 Endometrium thickened [id number] R93.89 Endometritis 00790956 N7 1.0 37-year-ol d female who presents [...] and have her follow-up in 1 week. [id number] Tomás Luo MD [facility] [address],[place] [address] 11/29/2022 15:51:47 11/29/2022 16:36:59 Pain in pelvis 99469372 R10.2 [id number] [facility] [address],[facility] [place] [address] 12/02/2022 17:46:21 12/03/2022 16:36:21 Postoperative visit [id number] Z09 Post-Leep Exam appears healing well approximat [...] if needed for feeling of spasms in uterus.We discussed that chronic pain conditions can magnify pain levels; so this can take time and patience to work through. She will reach out next week for update on status.She will go to ED if needed.IF, she needs a little more pain relief we did discuss briefly coupling tsering/Rohith willis with an NSAID due to Fibromyalg ia Hx--if her new insurance will cover it. She will let us know.Couns eled on purpose of these medication s.She will finish her abx doxycyclin e.Call if suspects yeast infection/ other vaginitis. 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 Time spent in visit is a total of 30 mins with at least 50% of visit consisting of counseling and review of plan of care. Contact de rmatitis caused by urushiol from [facility] [id number] L25.5 Topical ointment sent for remaining itchy rash. [id number] Morenita Zuleta [facility] [address],[place] [address] 03/30/2023 09:18:02 03/30/2023 09:53:52 Malaise and fatigue [id number] R53.81 Today we will update lab work & complete labs ordered previously which were not done.Will release results once completed. Pain in pelvis 70265911 R10.2 Recurring pelvic pain post-endom etrial ablation [...] review of plan of care. Urinary symptoms 6556615 08 R39.9 Send urine to r/o infections . [id number] [facility] [address],[facility] [place] [address] 10/27/2023 10:03:32 10/27/2023 10:28:30 Abnormal uterine bleeding [id number] 9100 N93.9 The patient and I disscussed [...] update US and reach out with results. 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 m- discussed expectant vs medical vs surgical management with hysterosco py and endometria l biopsies- patient desires surgical management with hysterosco py and biopsy; r/b/a discussed- will plan for in office procedure [id number] Tomás Luo MD [facility] [address],[facility] [place] [address] 04/17/2024 09:37:17 04/17/2024 09:53:54 Vaginitis 63012581 N76.0 Health Concerns Section Related Observation LastModified by Organization Detai ls LastModified Time None Recorded Concern Status LastModified by Organization Details LastModified Time None Recorded Advance Directives Directive None Recorded Payers Encounter Date Sequence Insurance Name Policy Number Policy Leyva Covered Member ID Leyva Member ID Guarantor Name 03/30/[address] [facility] (MEDICAID HMO) [id number] Shalonda Constantino [id number] Shalonda Constantino 10/27/[address] [facility] (MEDICAID HMO) [id number] Shalonda Constantino [id number] Shalonda Constantino 11/08/[address] [facility] (MEDICAID HMO) [id number] Shalonda Constantino [id number] Shalonda Montanez Constantino 12/02/[address] [facility] (MEDICAID HMO) [id number] 0003 Shalonad Constantino [id number] Shalonda Constantino 04/17/[address] [facility] (MEDICAID HMO) [id number] 0003 Shalonda Constantino [id number] Shalonda Constantino Notes Date Note Type Note Provider Name and Address Organization Details Recorded Time 03/30/2023 text/html Here today to discuss recurring random cramping and feeling of pelvic pressure since 11/2022 endometrial ablation. +fatigue & feeling of flu like sx's around the time menses would normally start.Neg pain of abd//flankNeg urinary sx'sNeg GI sx'sNeg N/V/F/C/DNeg Vag d/c, odor, irritation, itchingNeg AUBNeg dyspareunia. MAYRA Damon- [address], [place], [address], [facility] 03/30/2023 09:53:32 10/27/2023 text/html Here today for AUB.Hx of endo ablation 2022.Hx of tubal ligation. Random AUB period like flow started end of last week.Pain with sexCramping on/off Neg pain of abd/pelvis/flankN eg urinary sx'sNeg GI sx'sNeg N/V/F/C/DNeg Vag d/c, odor, irritation, itching MAYRA Damon- [address], [place], [address], [facility] 10/27/2023 10:26:39 12/02/2023 text/html Presents to discuss abnormal bleeding. Hx of endometrial ablation 1 year ago. Bled x6 weeks following procedure. Then in October, had an episode of abnormal bleeding and pain with sex. Now bleeding has stopped, however the pain is constant and aching. She denies nausea or vomiting. NATY GASTELUM MD [address], [place], [address], [facility] 12/02/2023 10:09:35 OBGyn Episode Ob Episode Information Episode Created Date Number of Fetuses Patient Bloodtype Patient rh Status Prepregnancy Weight lbs Domestic Partner Domestic Partner Phone Father Name Director Of District Office Status 07/31/19 22 1 CLOSED Fetus Data First Name Last Name Admitted to NICU Weight (g) Sex Living Outcome Pediatric Complications Fetus ID Race Codes Race Delivery Type F [id number] Vaginal Delivery Usman Calculation Initial Usman Date [...] Domestic Partner Domestic Partner Phone Father Name Director Of District Office Status 07/31/19 22 1 CLOSED Fetus Data First Name Last Name Admitted to NICU Weight (g) Sex Living Outcome Pediatric Complications Fetus ID Race Codes Race Delivery Type M [id number] Vaginal Delivery Usman Calculation Initial Usman Date [...] Domestic Partner Domestic Partner Phone Father Name Director Of District Office Status 07/31/19 22 1 CLOSED Fetus Data First Name Last Name Admitted to NICU Weight (g) Sex Living Outcome Pediatric Complications Fetus ID Race Codes Race Delivery Type F [id number] Vaginal Delivery Usman Calculation Initial Usman Date [...]
[2024-11-06 19:11] VITALS: BP 132/91; PULSE 88; RESP 18; TEMP 36.7; O2SAT 100
--- NOTE | 2024-11-06 19:14 | ED_ITS ---
HPI - General Adult General Chief complaint: Upper Respiratory Infection Stated complaint: Sore Throat Source: patient Mode of arrival: ambulatory Limitations: no limitations History of Present Illness HPI narrative: Patient presents for evaluation of sore throat since yesterday. She denies any fever, chills, nausea, vomiting, cough, otalgia, or shortness of breath. She has not taken any medication to assist with her symptoms. She does not smoke. She was not concerned about her symptoms but her jhodgrzr-qw-ohw is in labor and she did not want to expose family to strep in the event that she had it. Related Data Home Medications ?Medication ?Instructions ?Recorded ?Confirmed ?Last Taken ?Type omeprazole 20 mg capsule,delayed mg 11/06/24 Unknown History release Allergies Allergy/AdvReac Type Severity Reaction Status Date / Time No Known Allergies Allergy Verified 11/06/24 19:04 Review of Systems Review of Systems: CONSTITUTIONAL: Denies fever, chills, or sweats. EYES: Denies visual changes, redness, or discharge. ENT: Reports sore throat. Denies rhinorrhea, congestion, or otalgia. CARDIOVASCULAR: Denies chest pain, palpitations, or edema. RESPIRATORY: Denies cough or dyspnea. GASTROINTESTINAL: Denies abdominal pain, nausea, vomiting, or diarrhea. GENITOURINARY: Denies dysuria or hematuria. SKIN: Denies rash or itching. MUSCULOSKELETAL: Denies back pain, joint pain, or myalgia. NEUROLOGIC: Denies headache, numbness, dizziness, or weakness. PSYCHIATRIC: Denies anxiety or depression. [facility] Past Medical History Medical History ADHD (attention deficit hyperactivity disorder) IBS (irritable bowel syndrome) Fibromyalgia Obesity Anxiety Surgical History Surgical History History of ear surgery perforation of left ear Family History Family History Mother Hypertension Thyroid disorder Sibling Thyroid disorder Grandparent Alcoholism Grandparent Alcoholism Lung cancer Social History Social History Smoking packs per day: 1 Smoking cigarettes per day: 20.0 Years smoked: 20 Smoking pack-years: 20.00 Smoking status: Former smoker Tobacco type: cigarettes Alcohol intake: current Substance use: never Substance use type: does not use Do You Feel Safe in your Home?: Yes Lack of Transportation: No Lack of Food: Never True Current Housing: I Have Housing Concerned About Future Housing: No Difficulty Paying Gas/Electric Bills: YES Difficulty Paying for Meds: No Currently Unemployed: No Education: Trade/Vocational Certificate Difficulty w/ Childcare or Family Care: No Living arrangements: with family Gender identity (if verbalized by the patient): Female Spiritual care concerns: No Exam Narrative: GENERAL: Well-appearing, well-nourished, and in no acute distress. HEAD: Normocephalic, atraumatic. EYES: PERRLA and EOMI. ENT: Nares clear, no rhinorrhea or epistaxis. Mucous membranes moist. Oropharynx without tonsillar hypertrophy exudate or other lesions. Bilateral TMs pearly tierney nonbulging NECK: Supple. No adenopathy or masses. No carotid bruits or JVD CHEST: Clear to auscultation. No respiratory distress. No wheezes rales or rhonchi HEART: Regular rate and rhythm. No murmur heard. Normal peripheral pulses. ABDOMEN: Soft, nontender, nondistended, normal active bowel sounds. EXTREMITIES: Normal range of motion. No edema. SKIN: Warm, dry, no rash. NEURO: No focal deficits. Alert and oriented x3. PSYCH: Normal mood and affect. Course Course Emergency Course: This is a 39-year-old female presented for evaluation of sore throat. Rapid strep negative. Will send throat culture. Follow-up primary provider. Go to the ER for worsening symptoms. Patient in agreement with plan of care. Level of Care: Express Care Visit Vital Signs Vital signs: Vital Signs Temperature 36.7 C 11/06/24 19:11 Pulse Rate 88 11/06/24 19:11 Respiratory Rate 18 11/06/24 19:11 Blood Pressure 132/91 H 11/06/24 19:11 Pulse Oximetry 100 11/06/24 19:11 Oxygen Delivery Room Air 11/06/24 19:11 Temperature 36.7 C 11/06/24 19:11 Pulse Rate 88 11/06/24 19:11 Respiratory Rate 18 11/06/24 19:11 Blood Pressure 132/91 H 11/06/24 19:11 Pulse Oximetry 100 11/06/24 19:11 Oxygen Delivery Room Air 11/06/24 19:11 Medical Decision Making Vital Signs Vital Signs: Vital Signs Temperature 36.7 C 11/06/24 19:11 Pulse Rate 88 11/06/24 19:11 Respiratory Rate 18 11/06/24 19:11 Blood Pressure 132/91 H 11/06/24 19:11 Pulse Oximetry 100 11/06/24 19:11 Oxygen Delivery Room Air 11/06/24 19:11 Temperature 36.7 C 11/06/24 19:11 Pulse Rate 88 11/06/24 19:11 Respiratory Rate 18 11/06/24 19:11 Blood Pressure 132/91 H 11/06/24 19:11 Pulse Oximetry 100 11/06/24 19:11 Oxygen Delivery Room Air 11/06/24 19:11 Lab Data Labs: Lab Results 11/06/24 11/06/24 Range/Units 19:15 19:15 POC Grp A Strep Screen Negative Negative (Negative) Discharge Plan Discharge Clinical Impression: Pharyngitis Patient Disposition: Home Condition: Stable Instructions: Antibiotic Form, Pharyngitis (ED) Patient Language: Lithuanian Prescriptions: No Action omeprazole 20 mg capsule,delayed release(DR/EC) Follow-up/Referrals: Galilea,ODILON Hidalgo [Primary Care Provider] - Time of Disposition: 19:17
[2024-11-06 19:16] LABS: EDSTREPNEGPOS1 Negative (Negative)
[2024-11-06 19:17] LABS: EDSTREPNEGPOS1 Negative (Negative)
== END 2024-11-06 19:19 | disposition home or self-care (01) ==
PROVIDERS: Emergency Provider Nurse Practitioner; PCP Physician Assistant
DX: J02.9 Acute pharyngitis, unspecified (principal); Z87.891 Personal history of nicotine dependence
CPT/HCPCS: 87081; 87880; 99213; G0463

== ENCOUNTER 2025-03-02 11:54 | Emergency (ER) | payer SELFPAY ==
--- OUTSIDE RECORDS SUMMARY | 2025-03-02 11:58 | XMS_ITS | Clinical Summary ---
Author Organization [facility] Care Team Providers Care Fishing Tool Technician [employer] Name Role Phone Adam Alejo DO Unavailable [phone] Johnna Valente REINFORCING [employer] REBAR WORKERS, GAMBLING BROKER Unavailable [phone] Marisela Chaidez [employer]IN[employer]ING [employer]BAR WORKERS, GAMBLING BROKER Unavailable Johnathan Pugh MD Unavailable [phone] Gwen Calero PAC Primary Care Pro vider Allergies Active Allergy Reactions Criticality Noted Date Comments Buspirone Other (see Comments) 08/13/2024 Increased psyche symptoms Medications Phentermine HCl 37.5 MG TabletIndicatio ns:Overweight Take 1 Tablet by mouth every morning (before breakfast). 30 Tablet 2 06/08/2024 Active omeprazole (PriLOSEC) 20 MG CAPSULE DELAYED RELEASE Take 1 Capsule by mouth daily. 90 Capsule 3 12/14/2024 Active ALPRAZolam (XANAX) 0.5 MG TabletIndicatio ns:Anxiety Take 1 Tablet by mouth nightly as needed for Anxiety. 15 Tablet 12/14/2024 Active Active Problems Problem Noted Date Diagnosed Date Well woman exam 08/13/2024 Overview (08/13/2024): Pt is followed by [facility] for her SECOND RIGGER care Last noted pap was September 2022 [...] Encounters Date Type Department Care Team Description 12/14/2024 MyChart RX Renewal [facility] - Internal Medicine - [address] [place] [address] Gwen Calero, [facility] Medication Renewal Reviewed 12/05/2024 Travel from Last 3 Months Immunizations Immunization [...] drinks three bottles of wine a week [facility] Utilities Answer Date Recorded In the past 12 months has [employer], gas, oil, or water company threatened to shut off services in your home? No 11/08/2023 Social Connection and Isolation Panel Answer Date Recorded In a typical week, how many times do you talk on the phone with family, friends, or neighbors? More than three times a week 11/08/2023 How often do you get togethe r with friends or relatives? More than three times a week 11/08/2023 Attends [employer] Not on file 11/07 Active Member [...] Total Score - Questions 1-9 5 08/04 [facility] Occupat ional [facility] - Occupational Stress Questionnaire Answer Date [...] 11/08/2023 8:27 AM CDT Plan of Treatment Health Maintenance Due Date Last Done Comments Hepatitis B Immunization (1 of 3 - 19+ 3-dose series) 2004 Human Papillomavirus (HPV) Immunization (1 - 3-dose SCDM series) 2012 SARS-COV-2 Immunization ( season) 2025 Pap Smear 09/20/2025 09/20/2022 Td Immunization Every 10 Yea rs (Adults With 1 Tdap) 01/12/2027 01/12/2017 Cervical Cancer Screening (CCS) 09/21/2027 HPV/Cotest 09/21/2027 09/20/2022 Respiratory Syncytial Virus (RSV) Immunization (Adult) (1 - 1-dose 75+ series) 2060 Influenza Immunization Discontinued 4, 05/29/2020, 03/24/2018 Hepatitis C Virus (HCV) Screening Completed 08/13/2024 Meningococcal Immunization (ACWY) Aged Out No longer [...] on task at hand Behavioral Health Yes eMagan Cosme LCSW Improve attention skills Behavioral Health No Meagan Cosme LCSW Note: Goal/Objective: Increase attention skills. Anticipated Time Frame for Goal Completion: 3 months Goal Reviewed with: patient Readiness to change: Ready to change Department associated with goal: [facility] Steps to achieve [...] Procedure Name Priority Date/Time Associated Diagnosis Comments HEPATITIS C ANTIBODY Routine 08/13/2024 10:01 AM CDT Need for hepatitis C screening test PATHOLOGY CYTOLOGY SECOND RIGGER 09/20/2022 12:00 AM CDT from Last 3 Months or Most Recently Relevant to Health Maintenance Results * HEPATITIS C ANTIBODY (08/13/2024 10:01 AM CDT) hepatitis C antibody 0.09 <1 S/CO 08/13/2024 10:54 PM CDT [facility] Comment: Signal/Cutoff ratio < 0.79 is Nondetected Signal/Cutoff ratio 0.80-0.99 is Grayzone Signal/Cutoff ratio > 0.99 is Detected Supplemental assays are recommended if signal/cutoff ratio is >/=1.00. Signal/cutoff ratio result >/= 5.00 is 97% predictive of positivity for recombinant immunoblot assay (RIBA) and will be reported to the [place] Department of Public Health as required. Blood Venipuncture / Unknown 08/13/2024 10:01 AM CDT 08/13/2024 10:01 AM CDT Gwen Calero PAC CHEMISTRY ORDERAB LES Final Result Performing Organization Address City/[facility] Co de Phone Number [facility] [address] [place] [address], * PATHOLOGY CYTOLOGY SECOND RIGGER (09/20/2022 12:00 AM CDT) 09/20/2022 us Provider Scan PATHOLOGY/CYTOLOGY ORDERABLES Fi nal Result Performing Organization Address City/[facility] Co de Phone Number SCAN from Last 3 Months or Most [...] measures to stabilize the patient. Care Teams Fishing Tool Technician [employer] Relationship Specialty Start Date End Date Gwen Calero PAC [address] [place] [address] PCP - General Physician Banking Manager 06/12/21 Adam Alejo DO Gastroenterology 01/07/16 Johnna Valente APRN, GAMBLING BROKER Nurse Practitioner Advanced Practice Nurse 01/07/16 Marisela Chaidez, [employer] WORK[employer], GAMBLING BROKER Nurse Practitioner Advanced Practice Nurse 01/07/16 Johnathan Pugh MD [address] [place] [address] Obstetrics & Gynecology 08/13/19
--- OUTSIDE RECORDS SUMMARY | 2025-03-02 11:58 | XMS_ITS | Data Portability ---
Author Organization [facility] Address [address] [address] [place] [address] Assessment No assessment recorded. Plan of Treatment Reminders Order Date Submit Date Provider Last Modified By Organization Details Last Modified Time Details Appointments None recorded. Lab unlisted lab - [facility] swab plus, [facility] [address] [facility] (Lab), [address], [place], [address], 5 07:05:53 unlisted lab - [facility]ab [facility], [facility] [address] [facility] (Lab), [address], [place], [address], 4 14:30:34 Referral None recorded. Procedures None recorded. Surgeries hysteroscop y, surgical, with biopsy of endometrium and/or polypectomy (SURG) [address]23 [email or web address] [place] [address], [facility] [address], [place], [address], 4 17:00:16 Imaging US, pelvis 2023 024 manju [place], [facility] [address], [place], [address], 4 21:38:40 US, transvagina l 2023 024 manju [place], [address], [place], [address], 4 21:38:40 Medication Orders metronidazo le 500 mg tablet 2023 024 [id number], [address], [place], [place], [id number], 4 09:47:48 Patient TargetsNo targets recorded. Patient InstructionsNo instructions recorded. Reason for Referral None Reported. Results Created Date Observation Date Name Description Value Unit Range Abnormal Flag Note LastModifiedBy Organization Detail LastModifiedTime 10/27/19 24 10/27/2023 CT/GC AND TRICH OMONA S VAGIN CALEB (RRNA ), SWAB chlamydia trachomatis, PCR Negati ve negati ve Not Available [facility] (Lab) [address], [place], [address], 10/28/2023 15:25:08 10/27/19 24 10/27/2023 CT/GC AND TRICH OMONA S VAGIN CALEB (RRNA ), SWAB neisseria gonorrhoeae, PCR Negati ve negati ve Not Available [facility] (Lab) [address], [place], [address], 10/28/2023 15:25:08 10/27/19 24 10/27/2023 CT/GC AND TRICH OMONA S VAGIN CALEB (RRNA ), SWAB trichomonas vaginalis ribosomal RNA (rrna) Negati ve negati ve Not Available [facility] (Lab) [address], [place], [address], 10/28/2023 15:25:08 04/17/20 24 04/17/2024 [facility], [facility] bacterial vaginosis (bv), tma Positi ve negati ve abnormal Not Available [facility] (Lab) [address], [place], [address], 04/18/2024 14:30:34 04/17/20 24 04/17/2024 [facility], [facility] renee species, tma Negati ve negati ve Not Available [facility] (Lab) [address] [place], [address], 04/18/2024 14:30:34 04/17/20 24 04/17/2024 [facility] SWAB [facility], MICH renee glabrata, tma Negati ve negati ve Not Available [facility] (Lab) [address] [place], [address], 04/18/2024 14:30:34 04/17/20 24 04/17/2024 [facility] trichomonas vaginalis, tma Negati ve negati ve Not Available [facility] (Lab) [address], [place], [address], 04/18/2024 14:30:34 04/17/20 24 04/17/2024 [facility]ICH chlamydia trachomatis, PCR Negati ve negati ve Not Available [facility] (Lab) [address] [place], [address], 04/18/2024 14:30:34 04/17/20 24 04/17/2024 [facility] neisseria gonorrhoeae, PCR [...] , C. parap naida is, C. dubli ni is. Testi ng is perfo rmed using the Trans cript ion Media breana Ampli ficat ion metho d. Tests for Ciara da glabr codi, Trich omona s vagin caleb, Chlam ydia trach omati s, and Neiss eria gonor rhoea e are also inclu ded in this panel . Not Available [facility] (Lab) [address], [place], [address], 04/18/2024 14:30:34 12/20/19 25 12/19/2024 [facility], M[facility] bacterial vaginosis (bv), tma Negati ve negati ve Not Available [facility] (Lab) [address], [place], [address], 12/21/2024 07:05:53 12/20/1912/19/2024 [facility]AB [facility], M[facility] renee species, tma Positi ve negati ve abnormal Not Available [facility] (Lab) [address] [place], [address], 12/21/2024 07:05:53 12/20/19 25 12/19/2024 [facility] SWAB [facility], MICH rneee glabrata, tma Negati ve negati ve Not Available [facility] (Lab) [address] [place], [address], 12/21/2024 07:05:53 12/20/19 25 12/19/2024 [facility] SWAB [facility], MICH trichomonas vaginalis, tma Negati ve negati ve Not Available [facility] (Lab) [address] [place], [address], 12/21/2024 07:05:53 12/20/19 25 12/19/2024 [facility] SWAB [facility], MICH chlamydia trachomatis, PCR Negati ve negati ve Not Available [facility] (Lab) [address] [place], [address], 12/21/2024 07:05:53 12/20/19 25 12/19/2024 [facility] SWAB [facility], MICH [...] ded in this panel . Not Available [facility] (Lab) [address], [place], [address], 12/21/2024 07:05:53 11/08/19 24 11/08/2023 US, pelvi s No observ ation record ed. [email or web address], [place], [address], 11/08/2023 12:55:46 11/08/19 24 11/08/2023 US, trans vagin al No observ ation record ed. [email or web address] [place] [address], [place], [address], 11/08/2023 12:55:36 11/08/19 24 11/08/2023 US, pelvi s No observ ation record ed. [email or web address], [facility], [place], [address], 11/16/2023 11:01:25 Result Notes None recorded. Procedures Surgical History Date Name Laterality Status Provider Name and Address Organization Details Recorded Time 11/17/19 23 Endometrial Ablation completed Mercedes Dumont [facility] 10/27/2023 10:15:40 11/17/19 23 LOOP ELECTRODE EXCISION PROCEDURE, SURGICAL (LEEP) (SURG) completed Rose Burks [facility] 11/17/2022 10:10:43 10/20/19 23 Colposcopy completed Morenita Zuleta [facility] [address], [place], [address], [facility] 10/21/2022 09:41:59 10/20/19 23 Colposcopy completed Keke Meadows [facility] 11/08/2022 11:33:52 09/21/19 23 Date of Last Pap Smear completed Mercedes Dumont [facility] 10/19/2022 17:23:42 08/22/19 22 Colposcopy completed Morenita Zuleta [facility] [address], [place], [address], [facility] 08/21/2021 14:39:30 08/22/19 22 Colposcopy completed Blanca Cerrato [facility] 09/18/2022 10:11:24 08/22/19 22 Colposcopy completed Annabelle Gomez [facility] 08/21/2021 15:11:41 Imaging Results None recorded. [...] completed Not Available Not Available Not Available clindamycin HCl 300 mg capsule TAKE 1 CAPSULE BY MOUTH FOUR TIMES DAILY FOR 10 DAYS 12/30 completed Not Available Not Available Not Available loperamide 2 mg capsule 09/18 completed Not Available Not Available Not Available ibuprofen 800 mg tablet TAKE 1 TABLET BY MOUTH 1-2 HOURS PRIOR TO PROCEDURE active Not Available Not Available No t Available fluconazole 150 mg tablet TAKE 1 TABLET BY MOUTH EVERY 72 HOURS active Not Available Not Available No t Available benzonatate 200 mg capsule TAKE 1 CAPSULE BY MOUTH THREE TIMES DAILY NEEDED FOR COUGH active Not Available Not Available No t [...] Not Available Not Available Not Available prednisone 20 mg tablet TAKE 1 TABLET BY MOUTH TWICE DAILY. TAKE WITH FOOD. PM DOSE NO LATER THAN 6 PM active Not Available Not Available No t Available phentermine 15 mg capsule TAKE 1 CAPSULE BY MOUTH DAILY 10/26 completed Not Available Not Available Not Available metronidazo le 500 mg tablet TAKE 1 TABLET BY MOUTH TWICE DAILY FOR 5 DAYS active Not Available Not Available No t Available phentermine 37.5 mg tablet TAKE 1 TABLET BY MOUTH EVERY MORNING BEFORE BREAKFAST active Not Available Not Available No t Available triamcinolo ne acetonide 0.1 % topical cream active Not Available Not Available Not Available amoxicillin 500 mg tablet TAKE 1 TABLET BY MOUTH THREE TIMES DAILY 09/18 completed Not Available Not Available Not Available alprazolam 0.5 mg tablet TAKE 1 TABLET BY MOUTH EVERY NIGHT NEEDED FOR ANXIETY active Not Available Not Available No t [...] BY MOUTH TWICE DAILY NEEDED FOR ANXIETY active Not Available Not Available No t Available amitriptyli ne 25 mg tablet TAKE [...] TAKE 1 TABLET BY MOUTH EVERY NIGHT active Not Available Not Available No t Available omeprazole 20 mg capsule,del ayed release [...] Available Not Available Not Available amoxicillin 875 mg-potassiu m clavulanate 125 mg tablet TAKE 1 TABLET BY MOUTH TWICE DAILY FOR 10 DAYS 12/30 completed Not Available Not Available Not Available escitalopra m 20 mg tablet TAKE 1 TABLET BY MOUTH EVERY DAY 07/31 completed Not Available Not Available Not Available Lo Loestrin Fe 1 mg-10 mcg (24)/10 mcg (2) tablet TAKE 1 TABLET BY MOUTH DAILY active Not Available Not Available No t Available EluRyng 0.12 mg-0.015 mg/24 hr vaginal ring INSERT 1 RING VAGINALLY EVERY 3 WEEKS FOR CONTINUOU S USE METHOD OF CONTROL 09/18 completed Not Available Not Available Not Available Vitals Date Recorded Body height Body mass index (BMI) Body weight Systolic And Diastolic Provider Name and Address Organization Details Last Updated DateTime 10/27/2023 161.93 cm 34.6 kg/m2 48954.47 g 135/91 mm[Hg] Mercedes Dumont [place] - [facility] 10/27/2023 10:09:08 Date Recorded Body height Body mass index (BMI) Body weight Systolic And Diastolic Provider Name and Address Organization Details Last Updated DateTime 12/02/2023 161.93 cm 34.3 kg/m2 59050.73 g 136/88 mm[Hg] Audrey Josephcody [facility] 12/02/2023 09:34:39 Date Recorded Body height Body mass index (BMI) Body weight Systolic And Diastolic Provider Name and Address Organization Details Last Updated DateTime 04/17/2024 161.93 cm 34.9 kg/m2 61660.66 g 131/93 mm[Hg] Mercedes Tim [facility] 04/17/2024 09:46:12 Social History Question Answer Notes LastModified by Organizat ion Details LastModified Time Tobacco Smoking Status Never Smoker Annabelle Jason sheikh, [facility] 07/31/2021 14:19:56 Are You Blind Or [...] not available 07/31/2021 Are you able to walk independently without assistance or assistive devices? YESWOREST Information not available 07/31/2021 Are you able to care for yourself independently? Yes Information not available 07/31/2021 Do you have difficulty dressing, bathing, grooming, or toileting? No Information not available 07/31/2021 What is your exercise level? Occasional Information not available 07/31/2021 Mental Status Question Answer Note LastModified by Organization D etails LastModified Time Do you feel stressed (tense, restless, nervous, or anxious, or unable to sleep at night)? [id number] Information not available 07/31/2021 Family History Relationship [...] Diagnosis SNOMED-CT Code Diagnosis ICD10 Code Diagnosis IMO Codes Diagnosis Note [id number] Morenita Zuleta [facility] [address],[facility] [place] [address] 07/31/2021 13:59:35 07/31/2021 14:59:15 Gynecologic examination 02596028 Z01.419 Take Calcium with Vitamin D 1200mg [...] isssues or questions Contracept ion care management 386441670 Z30.9 Happy on Nuvaring & wishes to continue. [id number] Morenita Zuleta , [facility] [address],[facility] [place] [address] 08/21/2021 13:54:19 08/21/2021 14:51:06 Atypical squamous cells of undetermined significance on cervical Papanicolaou smear 137927205 R87.610 ASCUS cannot r/o HGSIL See procedure notes.Post -procedure instructio ns reviewed with understand ing verbalized .Will contact with results & next steps in plan of care. [id number] Morenita Zuleta [facility] [address],[place] [address] 09/18/2022 10:15:23 09/20/2022 15:27:41 Gynecologic examination 57110623 Z11.51 Z11.3 Z11.8 Take Calcium with Vitamin [...] Screen na Routine Labs ordered/PC P Menorrhagia 030653103 N9 2.0 Endo ablation consult MDUpdate US orderedUpd ate labs ordered [id number] MD Basim Jones [address] [address] 09/23/2022 16:27:29 09/23/2022 17:25:42 Menorrhagia 915088937 N92.0 [id number] Tomás Luo MD [place] [address],[place] [address] 09/30/2022 17:15:52 10/01/2022 14:56:09 Menorrhagia 674339592 N92.0 This patient is a 37-year-ol d [...] decision to perform surgery. Female sterilization 608 23038 Z30.2 [id number] Morenita Zuleta [facility] [address] [address] 10/19/2022 17:08:37 10/21/2022 16:22:57 Screening procedure 37545129 Z13.9 Human lashaun llomavirus deoxyribonucleic acid detected, high risk on cervical specimen 119427112 R87.810 (2022) PAP/HPV (ASCUS/+HR HPV) See procedure [...] g-abnormal -hpv-and-p ap-test-re sults/unde rstanding- cervical-c hanges.pdf [id number] Tomás Luo MD [place] [address] [address] 11/08/2022 11:16:29 11/08/2022 12:53:08 Dysplasia of cervix 97148145 N87.9 Female sterilization 608 98870 Z30.2 Menorrhagia 502745372 N9 2.0 this patient is a 37-year-ol d female with menorrhagi a, unwanted fertility cervical dysplasia. We have agreed formally procedure, laparoscop ic salpingect neil and endometria l ablation with hysterosco py. She understand s the risks, benefits And alternativ es. She has completed the informed consent process and is ready to proceed. [id number] Tomás Luo MD [place] [address] [address] 11/17/2022 10:13:38 11/17/2022 10:17:53 [id number] Tomás Luo MD [place] [address] [address] 11/24/2022 16:36:06 11/24/2022 17:52:44 Endometrium thickened 722810330 R93.89 Endometritis 90530371 N7 1.0 37-year-ol d female who presents [...] and have her follow-up in 1 week. 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 Time spent in visit is a total of 30 mins with at least 50% of visit consisting of counseling and review of plan of care. Contact de rmatitis caused by urushiol from [facility] maile [id number] L25.5 Topical ointment sent for remaining itchy rash. [id number] MAYRA [facility] [address] [address] 03/30/2023 09:18:02 03/30/2023 09:53:52 Malaise and fatigue 254738232 R53.81 Today we will update lab work & complete labs ordered previously which were not done.Will release results once completed. Pain in pelvis 45404747 R10.2 Recurring pelvic pain post-endom etrial ablation [...] review of plan of care. Urinary symptoms 0411661 08 R39.9 Send urine to r/o infections . [id number] [facility] [address],[facility] [place] [address] 10/27/2023 10:03:32 10/27/2023 10:28:30 Abnormal uterine bleeding 3472521881 9100 N93.9 The patient and I disscussed [...] than 30 minutes face to face. STD sentDein ed UPT (Hx of tubal)Will update US and reach out with results. [id number] Tomás Luo MD [place] [address] [address] 11/08/2023 10:56:23 11/08/2023 11:40:34 Pain in pelvis 81734317 R10.2 N93.9 [id number] NATY GASTELUM MD [place] [address] [address] 12/02/2023 09:29:43 12/02/2023 10:16:20 Abnormal uterine bleeding 5077889211 9100 N93.9 - bleeding episode 1 year after ablation- pain during and following sex, now constant aching pain- STD negative- pelvic US demonstrat es areas of likely regrown endometriu m- discussed expectant vs medical vs surgical management with hysterosco py and endometria l biopsies- patient desires surgical management with hysterosco py and biopsy; r/b/a discussed- will plan for in office procedure [id number] Tomás Luo MD [place] [address] [address] 04/17/2024 09:37:17 04/17/2024 09:53:54 Vaginitis 46480069 N76.0 [id number] Tomás Luo MD [place] [address] [address] 12/19/2024 10:54:10 12/19/2024 11:35:47 Acute vaginitis 22124870 N76.0 [id number] Health Concerns Section Related Observation LastModified by Organization Detai ls LastModified Time None Recorded Concern Status LastModified by Organization Details LastModified Time None Recorded Advance Directives Directive None Recorded Payers Insurance Date Sequence Insurance Name Policy Number Policy Leyva Covered Member ID Leyva Member ID Guarantor Name 12/19/2024 1 [facility] (MEDICAID HMO) [id number] Shalonda Constantino [id number] Shalonda Constantino 12/19/2024 1 *SELF PAY* Jovita Constantino Notes Date Note Type Note Provider Name and Address Organization Details Recorded Time 10/27/2023 text/html ROS as noted in the HPI Here today for AUB.Hx of endo ablation 2022.Hx of tubal ligation. Random AUB period like flow started end of last week.Pain with sexCramping on/off Neg pain of abd/pelvis/flankNeg urinary sx'sNeg GI sx'sNeg N/V/F/C/DNeg Vag d/c, odor, irritation, itching Morenita Zuleta, MAY[facility]- [address], [place], [address], [facility] 10/27/2023 10:26:39 12/02/2023 text/html Presents to discuss abnormal bleeding. Hx of endometrial ablation 1 year ago. Bled x6 weeks following procedure. Then in October, had an episode of abnormal bleeding and pain with sex. Now bleeding has stopped, however the pain is constant and aching. She denies nausea or vomiting. NATY GASTELUM MD [address], [place], [address], [place] [facility] 12/02/2023 10:09:35 04/17/2024 text/html Vaginal/Vulvar ProblemReported by Patient Mercedes Dumont null, [facility] 04/17/2024 09:48:08 12/19/2024 text/html Vaginal/Vulvar ProblemReported by Patient Harriet Pedroza [facility], [facility] 12/19/2024 11:21:23 OBGyn Episode Ob Episode Information Episode Created Date Number of Fetuses Patient Bloodtype Patient rh Status Prepregnancy Weight lbs Domestic Partner Domestic Partner Phone Father Name Technical Sales Representatives Status 07/31/19 22 1 CLOSED Fetus Data First Name Last Name Admitted to NICU Weight (g) Sex Living Outcome Pediatric Complications Fetus ID Race Codes Race Delivery Type F [id number] Vaginal Delivery Usman Calculation Initial Usman Date [...] Domestic Partner Domestic Partner Phone Father Name Technical Sales Representatives Status 07/31/19 22 1 CLOSED Fetus Data First Name Last Name Admitted to NICU Weight (g) Sex Living Outcome Pediatric Complications Fetus ID Race Codes Race Delivery Type M [id number] Vaginal Delivery Usman Calculation Initial Usman Date [...] Domestic Partner Domestic Partner Phone Father Name Technical Sales Representatives Status 07/31/19 22 1 CLOSED Fetus Data First Name Last Name Admitted to NICU Weight (g) Sex Living Outcome Pediatric Complications Fetus ID Race Codes Race Delivery Type F [id number] Vaginal Delivery Usman Calculation Initial Usman Date [...]
--- OUTSIDE RECORDS SUMMARY | 2025-03-02 11:58 | XMS_ITS | Clinical Summary ---
Author Organization [facility] Address [address] [place] [address] Care Team Providers Care Paperhanger Assistant Name Role Phone Andrea Addison MD Unavailable Unavailab le Source Comments [facility],non-owned Affiliates and Associated Physician Practices is amultiple site organization consisting of ambulatory clinics and hospital sitesin [place], [place], [place] and [place]. This disclosure is being madepursuant to the Care Everywhere program and may not contain all information available regarding this patient. Last updated 18.[facility] [place] Social History Tobacco Use Types Packs/Day Years Used Date Smoking Tobacco: Never Assessed Comments No Sex and Gender Information Value Date Recorded Sex Assigned at Not on file Legal Sex Female 11:22 AM CDT Gender Identity Not on file Sexual Orientation Not on file Plan of Treatment Health Maintenance Due Date Last Done Comments HIV SCREENING 2000 HEPATITIS C SCREENING 06/17/2003 DTAP/TDAP/TD VACCINES (1 - Tdap) 2004 HEPATITIS B VACCINE (1 of 3 - 19+ 3-dose series) 2004 PAP SMEAR 2006 HPV VACCINE (1 - 3-dose SCDM series) 2012 DEPRESSION SCREENING 06/06/2024 COVID-19 VACCINE ( - 2023-2 5 season) 2025 INFLUENZA VACCINE (#1) 2025 ZOSTER VACCINE (1 of 2) 2035 [...] patient's age to complete this topic Insurance [facility] Care Teams Paperhanger Assistant Relationship Specialty Start Date End Date Andrea Addison MD Cardroom Plastic Card Grader Obstetrics and Gynecology 12/22/16
--- OUTSIDE RECORDS SUMMARY | 2025-03-02 11:58 | XMS_ITS | Encounter Summary ---
Author Organization [facility] Address [address] [place] [address] Phone Care Team Providers Care Copyright Manager Name Role Phone Carmen Brown MD Primary Care Provider Adam Alejo DO Unavailable [phone] Johnna Valente DIRECTOR OF PSYCHOLOGY, MAC DEVELOPER Unavailable [phone] Marisela Chaidez APRN, MAC DEVELOPER Unavailable Johnathan Pugh MD Unavailable [phone] Gwen Calero PAC Primary Care Pro vider Reason for Visit * Reason Comments Medication Refill Encounter Details Date Type Department Care Team (Late st Contact Info) Description 12/18/2020 Refill [facility] - [facility] - [facility] [address] [place] [address] Viviane De La Rosa, DIRECTOR OF PSYCHOLOGY, MAC DEVELOPER [address] [place] [place] [address] Medication Refill Social History Tobacco [...] Mild episode of recurrent major depressive disorder Anxiety Anxiety state, unspecified documented in this encounter Additional Health Concerns Assessment Noted Time PHQ-9 Depression Total Score: 15 021 11:00 AM CDT documented as of this encounter Care Teams Copyright Manager Relationship Specialty Start Date End Date Carmen Brown MD PCP - General Family Medicine 10/28/15 06/11/21 Gwen Calero PAC [address] [place] [address] PCP - General Physician Traffic Sign Supervisor 06/12/21 Adam Alejo DO Gastroenterology 01/07/16 Johnna Valente, DIRECTOR OF PSYCHOLOGY, MAC DEVELOPER Nurse Practitioner Advanced Practice Nurse 01/07/16 Marisela Chaidez APRN, MAC DEVELOPER Nurse Practitioner Advanced Practice Nurse 01/07/16 Johnathan Pugh MD [address] [place] [address] Obstetrics & Gynecology 08/13/19 documented as of this encounter
--- OUTSIDE RECORDS SUMMARY | 2025-03-02 11:58 | XMS_ITS | Encounter Summary ---
Author Organization [facility] Address [address] [place] [address] Phone Care Team Providers Care Family Services Specialist Name Role Phone Adam Alejo DO Unavailable [phone] Johnna Lund ORDER ANALYST, CRIMINAL RESEARCH SPECIALIST Unavailable Marisela Chaidez ORDER ANALYST, CRIMINAL RESEARCH SPECIALIST Unavailable Johnathan Pugh MD Unavailable [phone] Gwen Calero PAC Primary Care Pro vider Reason for Visit * Reason Comments Medication Refill Encounter Details Date Type Department Care Team (Late st Contact Info) Description 08/02/2022 Refill [facility] - Internal Medicine - [place] [address] [place] [id number] Gwen Calero, 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 documented in this encounter Plan of Treatment Not on file documented as of this encounter Goals Goal [...] as of this encounter Care Teams Family Services Specialist Relationship Specialty Start Date End Date Gwen Calero PAC [address] [place] [address] PCP - General Physician Personal Consultant 06/12/21 Adam Alejo DO Gastroenterology 01/07/16 Johnna Valente APRN, CRIMINAL RESEARCH SPECIALIST Nurse Practitioner Advanced Practice Nurse 01/07/16 Marisela Chaidez, MICHAEL, CRIMINAL RESEARCH SPECIALIST Nurse Practitioner Advanced Practice Nurse 01/07/16 Johnathan Pugh MD [address] [place], [place] [id number] Obstetrics & Gynecology 08/13/19 documented as of this encounter
--- OUTSIDE RECORDS SUMMARY | 2025-03-02 11:58 | XMS_ITS | Encounter Summary ---
Author Organization [facility] Address [address] [place] [address] Phone Care Team Providers Care Agency Appointments Supervisor Name Role Phone Adam Alejo DO Unavailable [phone] Johnna Lund ANIMAL SCIENCE INSTRUCTOR, MOLD SHIFTER Unavailable [phone] Marisela Chaidez ANIMAL SCIENCE INSTRUCTOR, MOLD SHIFTER Unavailable Johnathan Pugh MD Unavailable [phone] Gwen Calero PAC Primary Care Pro vider Reason for Visit * Reason Comments Medication Refill Encounter Details Date Type Department Care Team (Late st Contact Info) Description 05/22/2023 Refill [facility] - Internal Medicine - [place] [address] [place] [id number] Gwen Calero, [facility] [address] [place] [address] Medication Refill Social History Tobacco Use Types [...] med Needs OV for beginning of Jun GY ENGINEER * Telephone Encounter - Radha Johnson [...] 09/23/22 Office Visit Gwen Calero PAC [facility] [place] 06/18/22 Office Visit Gwen Calero PAC [facility] Showing recent visits within past 365 days and meeting all other requirements Future Appointments No visits were found meeting these conditions. Showing future appointments within next 90 days and meeting all other requirements GY ENGINEER documented in this encounter Plan of [...] Ready to change Department associated with goal: [facility] Steps to achieve [...] documented as of this encounter Care Teams Agency Appointments Supervisor Relationship Specialty Start Date End Date Gwen Calero PAC [address] [place] [address] PCP - General Physician Mail Examiner 06/12/21 Adam Alejo DO Gastroenterology 01/07/16 Johnna Valente APRN, MOLD SHIFTER Nurse Practitioner Advanced Practice Nurse 01/07/16 Marisela Chaidez, MICHAEL, MOLD SHIFTER Nurse Practitioner Advanced Practice Nurse 01/07/16 Johnathan Pugh MD [address] [place] [address] Obstetrics & Gynecology 08/13/19 documented as of this encounter
--- OUTSIDE RECORDS SUMMARY | 2025-03-02 11:58 | XMS_ITS | Encounter Summary ---
Author Organization [facility] Address [address] [place] [address] Phone Care Team Providers Care Cover Operator Name Role Phone Adam Alejo DO Unavailable [phone] Johnna Lund OPTOMETRIC TECHNOLOGIST, MANAGER COLLECTION Unavailable [phone] Marisela Chaidez OPTOMETRIC TECHNOLOGIST, MANAGER COLLECTION Unavailable Johnathan Pugh MD Unavailable [phone] Gwen Calero PAC Primary Care Pro vider Reason for Visit * Reason Comments Medication Refill Encounter Details Date Type Department Care Team (Late st Contact Info) Description 10/07/2022 Refill [facility] Medical [facility] - Internal Medicine - [place] [address] [place] [phone] Gwen Calero, [facility] [address] [place] [address] Medication Refill Social History Tobacco Use Types [...] Office Visit Gwen Calero PAC [facility] [place] 06/18/22 Office Visit Gwen Calero PAC [facility] [place] 03/26/22 Office Visit Gwen Calero PAC [facility] [place] 01/27/22 Office Visit Gwen Calero PAC [facility] [place] Showing recent visits within past 365 days and meeting all other requirements Future Appointments Date Type Provider Dept 10/29/22 Appointment Gwen Calero PAC [facility] [place] Showing future appointments within next 90 days [...] documented as of this encounter Care Teams Cover Operator Relationship Specialty Start Date End Date Gwen Calero PAC [address] [place] [address] PCP - General Physician Boiler Shop Supervisor 06/12/21 Adam Alejo DO Gastroenterology 01/07/16 Johnna Valente APRN, MANAGER COLLECTION Nurse Practitioner Advanced Practice Nurse 01/07/16 Marisela Chaidez APRN, MANAGER COLLECTION Nurse Practitioner Advanced Practice Nurse 01/07/16 Johnathan Pugh MD [address] [place], [place] [id number] Obstetrics & Gynecology 08/13/19 documented as of this encounter
--- OUTSIDE RECORDS SUMMARY | 2025-03-02 11:58 | XMS_ITS | Clinical Summary ---
Author Organization [facility] Address [address] [place] [address] Care Team Providers Care Hay Baler Name Role Phone Gwen Calero Primary Care [...] and at bedtime 90 capsule 3 5 Active Active Problems Problem Noted Date Diagnosed [...] ear drum LASIK LASIK VAGINAL DELIVERY 01/11/2017 COLONOSCOPY 09/20/2024 1st UPPER [...] file Legal Sex Female 3:43 AM PROFESSIONAL MODEL Gender Identity Not on file Sexual Orientation [...] F Vag-S pont Epidura l Livin g AndFede nn Last Filed Vital Signs Vital Sign [...] 2-dose series) 1998 Hepatitis B Screening 2003 HPV Vaccines (1 - 3-dose SCD M series) 2012 Depression Screening 08/30/2018 08/30/2017 Regular Well Visit/Exam 18-64 08/30/2018 08/30/2017 Cervical Cancer Screening 06/02/20192017, 08/30/2017, 02/25/2017 Influenza Vaccine (#1) 2025 4, 05/29/2020, 03/24/2018 DTaP/Tdap/Td Vaccine (2 - Td or Tdap) 01/12/2027 01/12/2017 Hepatitis C Screening Completed 06/16/2016 Pneumococcal vaccine <65 Aged Out No longer eligible based on patient's age to complete this topic Procedures Procedure Name Priority Date/Time Associated Diagnosis Comments PAP IG, HPV-HR Routine 06/02/2018 History of abnormal cervical Pap smear SERUM HEPATITIS C AB Routine 06/16/2016 11:15 AM PROFESSIONAL MODEL from Last 3 Months or Most Recently Relevant to Health Maintenance Results * Pap IG, HPV-hr (06/02/2018) Endocervical 06/02/2018 us Radha Sun NP LAB PATHOLOGY ORDERABLES Final Result EXTERNAL LAB * Serum Hepatitis C ab (06/16/2016 11:15 AM PROFESSIONAL MODEL) HCV ab Negative Negative CDR HISTOR ICAL RESULTS Serum 06/16/2016 11:1 5 AM PROFESSIONAL MODEL us Andrea Addison MD LAB BLOOD ORDERABLES Final Result Performing Organization Address City/[facility]/ZIP Co de Phone Number CDR HISTORICAL RESULTS from Last 3 Months or Most Recently Relevant to Health Maintenance Insurance [facility] Advance Directives For more information, please contact: [phone] * Full Code (Latest Code Status on File) Date Activated Date Inactivated Comments 09/20/2024 11:28 AM 09/20/2024 6:57 PM * Full Code Date Activated Date Inactivated Comments 09/20/2024 11:28 AM 09/20/2024 11:28 AM Care Teams Hay Baler Relationship Specialty Start Date End Date Gwen Calero PA PCP - General Neurosurgery 06/03/22
[2025-03-02 12:01] VITALS: BP 142/84; PULSE 72; RESP 14; TEMP 36.3; O2SAT 98
--- NOTE | 2025-03-02 12:05 | ED.SKABFB ---
HPI - Skin/Abscess/Foreign Bdy General Chief complaint: Skin/Abscess/Foreign Body Stated complaint: infected spot on right side Time Seen by Provider: 03/02/25 12:05 Source: patient Mode of arrival: ambulatory Limitations: no limitations History of Present Illness HPI narrative: 39 y/o female presented for c/o boil to right hip. Site is tender. First noticed it as red spot 2 weeks ago, but says she scratched at it and it rubs her pants waist line. Denies any active drainage. Says she had a similar boil to the chest last summer. No treatment dye blender. Related Data Allergies Allergy/AdvReac Type Severity Reaction Status Date / Time No Known Allergies Allergy Verified 03/02/25 12:06 Review of Systems Review of Systems: CONSTITUTIONAL: Denies body aches, fever, chills, or sweats. EYES: Denies visual changes, redness, or discharge. ENT: Denies rhinorrhea, congestion CARDIOVASCULAR: Denies chest pain, palpitations, or edema. RESPIRATORY: Denies cough or dyspnea. GASTROINTESTINAL: Denies abdominal pain, nausea, vomiting, or diarrhea. SKIN: reports boil right hip MUSCULOSKELETAL: Denies back pain, joint pain, or myalgia. NEUROLOGIC: Denies headache, numbness, tingling, or weakness. COUNT INCLUDES THE [facility] Past Medical History Medical History ADHD (attention deficit hyperactivity disorder) IBS (irritable bowel syndrome) Fibromyalgia Obesity Anxiety Surgical History Surgical History History of ear surgery perforation of left ear Family History Family History Mother Hypertension Thyroid disorder Sibling Thyroid disorder Grandparent Alcoholism Grandparent Alcoholism Lung cancer Social History Social History Smoking packs per day: 1 Smoking cigarettes per day: 20.0 Years smoked: 20 Smoking pack-years: 20.00 Smoking status: Former smoker Tobacco type: cigarettes Alcohol intake: current Substance use: never Substance use type: does not use Do You Feel Safe in your Home?: Yes Lack of Transportation: No Lack of Food: Never True Current Housing: I Have Housing Concerned About Future Housing: No Difficulty Paying Gas/Electric Bills: YES Difficulty Paying for Meds: No Currently Unemployed: No Education: Trade/Vocational Certificate Difficulty w/ Childcare or Family Care: No Living arrangements: with family Gender identity (if verbalized by the patient): Female Spiritual care concerns: No Comments At time of signature, I have reviewed and agree with nursing past medical, surgical, social and family history unless otherwise noted. Please see nursing chart for further information. There is no relevant family history pertinent to the presenting complaint Exam Narrative: GENERAL: Well-appearing EYES: conjunctivae clear, and EOMI. ENT: Mucous membranes moist. Oropharynx without edema, erythema or lesions. NECK: Supple. No lymphadenopathy CHEST: Clear to auscultation. HEART: Regular rate and rhythm. SKIN: Right hip 1.5cm abscess, skin intact no active drainage, fluctuant, tender. Mild surrounding erythema. Noted to have Square shaped erythema c/w adhesive reaction surrounding the abscess. NEURO: Alert and oriented x3. Course Course Emergency Course: Patient is aware of diagnosis, understands and agrees to treatment plan. Anticipatory guidance given. Patient agrees to follow-up as directed and is aware of reasons to seek care at the emergency department. Portions of this record may have been created with voice recognition software Level of Care: Express Care Visit Vital Signs Vital signs: Vital Signs Temperature 97.3 F L 03/02/25 12:01 Pulse Rate 72 03/02/25 12:01 Respiratory Rate 14 03/02/25 12:01 Blood Pressure 142/84 H 03/02/25 12:01 Pulse Oximetry 98 03/02/25 12:01 Oxygen Delivery Room Air 03/02/25 12:01 Temperature 97.3 F L 03/02/25 12:01 Pulse Rate 72 03/02/25 12:01 Respiratory Rate 14 03/02/25 12:01 Blood Pressure 142/84 H 03/02/25 12:01 Pulse Oximetry 98 03/02/25 12:01 Oxygen Delivery Room Air 03/02/25 12:01 Reviewed MDM - Skin/Abscess/Foreign Bdy MDM Narrative Medical decision making narrative: Discussed physical exam findings; 1.5cm abscess right hip. Advised supportive measures and signs/symptoms to go to the ER. Pt is appropriate for outpt treatment and f/u. Differential Diagnosis Differential diagnosis: Likely abscess of skin or subcutaneous tissue, viral exanthem, dermatophytosis, urticaria, herpes zoster, cellulitis, eczema, insect bites, impetigo and contact dermatitis Discharge Plan Discharge Clinical Impression: Abscess of skin or subcutaneous tissue Patient Disposition: Home Condition: Stable Instructions: Antibiotic Form, Abscess (ED) Additional Instructions: You had an abscess drained today. Cleanse with warm soapy water Warm compresses at least 4 times a day to the site to help expel any additional drainage. Keep your wound covered while draining Take antibiotic as directed Tylenol and ibuprofen every 8 hours for pain as needed Follow up with your primary care physician in 3 days for a wound check. Go to the Emergency Department immediately if you develop any of the following symptoms: Fevers, Increased redness, pain, or swelling around where your abscess was, generalized weakness or vomiting or any other concerns Patient Language: Congolese Prescriptions: New cephalexin 500 mg capsule 500 mg PO Q6H 5 Days Qty: 20 0RF Follow-up/Referrals: Galilea,ODILON Hidalgo [Primary Care Provider, Unknown] Time of Disposition: 12:21
[2025-03-02] MEDS: LIDOCAINE 1% LOCAL INJ 2 ML AMPUL INFILTRATE (12:20)
== END 2025-03-02 12:30 | disposition home or self-care (01) ==
PROVIDERS: Emergency Provider Nurse Practitioner Family; PCP Physician Assistant
DX: L02.415 Cutaneous abscess of right lower limb (principal); M79.7 Fibromyalgia; E66.09 Other obesity due to excess calories; Z68.32 Body mass index [BMI] 32.0-32.9, adult; Z87.891 Personal history of nicotine dependence
CPT/HCPCS: 99213; G0463; J2003